=== PATIENT | male | born 1945 | race Caucasian/White ===

== ENCOUNTER → 2018-11-06 13:46 | Outpatient (BNVA) | payer MEDICARE, MEDICAID, SELFPAY | PROVIDERS: Visit Provider Nurse Practitioner Gerontology | DX: N40.1 Benign prostatic hyperplasia with lower urinary tract symptoms (principal); R33.9 Retention of urine, unspecified; G20 Parkinson's disease; I12.9 Hypertensive chronic kidney disease with stage 1 through stage 4 chronic kidney disease, or unspecified chronic kidney disease; N18.9 Chronic kidney disease, unspecified | CPT/HCPCS: 99204 ==

== ENCOUNTER 2022-11-24 02:59 | Inpatient (IN) | payer MEDICARE, MEDICAID, SELFPAY ==
[2022-11-24] VITALS (46 sets, daily range): BP systolic 77–108; BP diastolic 43–80; PULSE 55–122; RESP 14–27; TEMP 36.3–37.3; O2SAT 87–100
--- NOTE | 2022-11-24 | DI.US_ITS ---
Exam(s) US RENAL EXAM: US RENAL CLINICAL HISTORY: UTI in a male, [place] TECHNIQUE: Ultrasound of both kidneys performed using standard protocol. COMPARISON: CR,XR XR PORTABLE CHEST AP from 11/24/2022 FINDINGS: RIGHT KIDNEY: Measures 10.3 cm in length. No cysts evident. Normal cortical thickness and corticomedullary differen tiation .No solid masses No intrarenal calculi nor hydronephrosis. LEFT KIDNEY: Measures 10.2 cm in length. No cysts evident. Normal cortical thickness and corticomedullary differe ntiaion. No solids masses. No intrarenal calculi nor hydonephrosis. URINARY BLADDER: Prevoid volume is cc There is a catheter in the urinary bladder. The bladder is collapsed around this catheter. IMPRESSION: 1. No significant ultrasound findings in the kidneys. No hydronephrosis. 2. Wilkerson catheter in the urinary bladder. DATA REPOSITORY:
--- NOTE | 2022-11-24 03:00 | RT.EKG_ITS ---
APPROVED REPORT Exam: Resting ECG Reason for Exam: sob Patient Location: E HR:121 bpm ECG Measurements Heart Rate 121 AXIS AL 170 P 62 QRSd 93 QRS -24 QT 310 T 65 QTc 410 Conclusion Sinus tachycardia...rate> 99 Atrial premature complexes...SV complexes w/ short R-R intvls Anterior infarct, old...Q >40mS, abnormal ST-T, V2-V5. Sinus. Normal axis. PACs. No STEMI. I have reviewed and interpreted ECG and agree with software generated interpretation.
--- NOTE | 2022-11-24 03:15 | DI.RAD_ITS ---
Exam(s) XR PORTABLE CHEST AP EXAM: XR PORTABLE CHEST AP CLINICAL HISTORY: cough, fever, r/o acute disease. TECHNIQUE: 2D digital imaging was performed. COMPARISON: No exams were available for comparison FINDINGS: Single AP portable view. Heart size is upper normal. The mediastinum is not widened. Mild increased markings in the lung bases. No pleural effusions. No pulmonary edema. No pneumothor ax. IMPRESSION: Mild increased markings in lung bases. Recommend nonportable PA and lateral views when clinically pos sible and preferably with better inspiratory effort. DATA REPOSITORY: RADIATION DOSE DELIVERED:
--- NOTE | 2022-11-24 03:22 | ED.GENADUL_ITS ---
Discharge Plan Disposition Patient Disposition: Admit to [facility] Condition: Fair Discharge Details Clinical Impression: Sepsis, UTI (urinary tract infection), Pneumonia Admit Date/Time: 11/24/22 06:26 Admit Provider: Pasquale Gardner Attending Provider: Pasquale Gardner Primary Care Provider: Henrik Mukherjee ED Provider: Monica Cullen Discharge Data Discharge Date/Time-TO BE ENTERED AT DEPARTURE: 11/24/22 06:27 Medical Decision Making 0300 -- 77-year-old male presents from the health and rehab for report of fever, report of Wilkerson catheter not draining with report of purulent output after [place] change in addition to cough. Patient unable to provide history which is his baseline. Blood pressure hypotensive at 98/58. Heart rate tachycardic at 110. Rectal temp 101.4. Oxygen saturation mid 90s.Lung sounds are clear throughout. His abdomen is soft and there is no obvious tenderness. Concern for sepsis at this time. Will place an IV, bolus IV fluids, screening labs, urinalysis, lactate, blood cultures and give IV Tylenol reassess. 0410 -- Labs and imaging reviewed. White blood cell count 14.92. Lactate 1.7. Creatinine 2.5. He has a history of chronic kidney disease but unsure of his baseline. Troponin negative. Urinalysis notes greater than 50 WBCs, moderate leukocyte esterase, negative nitrite. Fluvid negative. Case discussed with hospitalist at [facility] and the [facility] downtime -- accepts pt for admission. Chest x-ray reviewed and notes what appears to be possible opacity or obscuring of right heart border. EMS and health and rehab reported a cough but patient has clear lung sounds throughout with normal oxygen saturation. Will cover likely UTI with Zosyn. This was discussed with Dr. Gardner who notes that Zosyn is fine at this time for coverage even if possible pneumonia. Patient's blood pressure has improved. His blood pressure was as low as 87 systolic. He now has a blood pressure of 101/57. 0600 -- Patient's BP now downtrending again, 80/58. Continue IV fluid hydration and continue to monitor. We will add vancomycin, pharmacy to dose Medical Records Medical records reviewed: Yes I reviewed the patient's medical records. Imaging Data Radiologic Study: Radiologist's impression: XR Chest Exam date and time: 11/24/2022 3:29 AM Age: 77 years old Clinical indication: Other: Cough, fever, R/O acute disease TECHNIQUE: Imaging protocol: Radiologic exam of the chest. Views: 1 view. COMPARISON: No relevant prior studies available. FINDINGS: Lungs: Low lung volumes. Faint patchy bibasilar opacities. Pleural spaces: No pneumothorax or sizable pleural effusion. Heart/Mediastinum: Borderline enlarged cardiac silhouette. Aortic atherosclerosis. Bones/joints: Degenerative changes in visualized spine. IMPRESSION: Faint patchy bibasilar opacities concerning for early/developing pneumonia. Lab Data Lab results reviewed: Yes I reviewed the patient's lab results. Labs: 11/24/22 03:38 Urine - Reflex from Ua Urine Culture - Pending 11/24/22 03:25 Blood Blood Culture - Pending 11/24/22 03:15 Blood Blood Culture - Pending Laboratory Tests Range/Units 11/24/22 11/24/22 11/24/22 03:15 03:15 03:15 WBC (4.4-10.8) 10^3/uL 14.92 H RBC (4.36-5.78) 10^6/uL 4.60 Hgb (13.5-17.5) g/dL 15.2 Hct (40.0-50.0) % 44.2 MCV (80-95) fL 96 H MCH (27.0-33.0) pg 33.0 MCHC (32.0-36.0) % 34.4 RDW (11.8-14.1) % 12.3 Plt Count (130-400) 10^3/uL 193 MPV (8.0-11.0) fL 10.1 Immature Gran % 0.4 Neutrophils % 91.0 Lymphocytes % 4.6 Monocytes % 3.6 Eosinophils % 0.1 Basophils % 0.3 Nucleated RBC % (0.0-0.3) % 0.0 Absolute Neutrophils (1.2-6.7) 10^3/uL 13.58 H Absolute Lymphocytes (1.2-3.4) 10^3/uL 0.69 L Absolute Monocytes (0.1-0.8) 10^3/uL 0.54 Absolute Eosinophils (0.0-0.7) 10^3/uL 0.01 Absolute Basophils (0.0-0.2) 10^3/uL 0.04 VBG Lactate (0.6-1.4) mmol/L 1.7 H Sodium (136-145) mmol/L 135 L Potassium (3.5-5.1) mmol/L 4.7 Chloride (98-107) mmol/L 102 Carbon Dioxide (21.0-32.0) mmol/L 23.0 Anion Gap (3-11) mmol/L 10.0 BUN (7-18) mg/dL 39 H Creatinine (0.70-1.30) mg/dL 2.5 H Est GFR (CKD-EPI 2020) (mL/min/1.73m2) 26.14 Glucose (74-106) mg/dL 139 H Calcium (8.5-10.1) mg/dL 9.1 Magnesium (1.8-2.4) mg/dL 2.1 Total Bilirubin (0.2-1.0) mg/dL 1.0 AST (15-37) U/L 20 ALT (16-63) U/L 12 L Alkaline Phosphatase (46-116) U/L 92 Troponin I (<or=60) ng/L < 50 Total Protein (6.4-8.2) g/dL 7.3 Albumin (3.4-5.0) g/dL 3.3 L Urine Color (Yellow) Urine Clarity (Clear) Urine pH (5-8) Ur Specific [place] (1.005-1.025) Urine Protein (Negative) mg/dL Urine Ketones (Negative) mg/dL Urine Blood (Negative) Urine Nitrite (Negative) Urine Bilirubin (Negative) Urine Urobilinogen (Up TO 0.2) EU/dL Ur Leukocyte Esterase (Negative) Urine RBC Urine WBC (0-5) HPF Ur Epithelial Cells Urine Crystals Urine Bacteria Urine Mucus Ur Culture Indicated? Urine Glucose (Negative) mg/dL COVID-19 Source SARS-CoV-2 (PCR) (Negative) Influenza Type A (PCR) (Negative) Influenza Type B (PCR) (Negative) RSV (PCR) (Negative) Range/Units 11/24/22 11/24/22 03:38 03:38 WBC (4.4-10.8) 10^3/uL RBC (4.36-5.78) 10^6/uL Hgb (13.5-17.5) g/dL Hct (40.0-50.0) % MCV (80-95) fL MCH (27.0-33.0) pg MCHC (32.0-36.0) % RDW (11.8-14.1) % Plt Count (130-400) 10^3/uL MPV (8.0-11.0) fL Immature Gran % Neutrophils % Lymphocytes % Monocytes % Eosinophils % Basophils % Nucleated RBC % (0.0-0.3) % Absolute Neutrophils (1.2-6.7) 10^3/uL Absolute Lymphocytes (1.2-3.4) 10^3/uL Absolute Monocytes (0.1-0.8) 10^3/uL Absolute Eosinophils (0.0-0.7) 10^3/uL Absolute Basophils (0.0-0.2) 10^3/uL VBG Lactate (0.6-1.4) mmol/L Sodium (136-145) mmol/L Potassium (3.5-5.1) mmol/L Chloride (98-107) mmol/L Carbon Dioxide (21.0-32.0) mmol/L Anion Gap (3-11) mmol/L BUN (7-18) mg/dL Creatinine (0.70-1.30) mg/dL Est GFR (CKD-EPI 2020) (mL/min/1.73m2) Glucose (74-106) mg/dL Calcium (8.5-10.1) mg/dL Magnesium (1.8-2.4) mg/dL Total Bilirubin (0.2-1.0) mg/dL AST (15-37) U/L ALT (16-63) U/L Alkaline Phosphatase (46-116) U/L Troponin I (<or=60) ng/L Total Protein (6.4-8.2) g/dL Albumin (3.4-5.0) g/dL Urine Color (Yellow) Yellow Urine Clarity (Clear) Cloudy Urine pH (5-8) 6.0 Ur Specific [place] (1.005-1.025) 1.020 Urine Protein (Negative) mg/dL >=300 H Urine Ketones (Negative) mg/dL Trace H Urine Blood (Negative) Large H Urine Nitrite (Negative) Negative Urine Bilirubin (Negative) Small H Urine Urobilinogen (Up TO 0.2) EU/dL 1.0 H Ur Leukocyte Esterase (Negative) Moderate H Urine RBC Not Applicable Urine WBC (0-5) HPF >50 H Ur Epithelial Cells Not Applicable Urine Crystals Not Applicable Urine Bacteria Not Applicable Urine Mucus Not Applicable Ur Culture Indicated? Yes Urine Glucose (Negative) mg/dL Negative COVID-19 Source Nasopharynx SARS-CoV-2 (PCR) (Negative) Negative Influenza Type A (PCR) (Negative) Negative Influenza Type B (PCR) (Negative) Negative RSV (PCR) (Negative) Negative ECG Data Attestation: I personally reviewed and interpreted this ECG (s) as follows: Interpretation: Rate of 121, sinus, PACs, no STEMI. HPI General Mode of arrival: EMS . Date/Time Provider Initiated Documentation: 11/24/22 03:16 . Limitations to Documentation: altered mental status and physical limitation . Information obtained by: patient . HPI Narrative: Patient is a 77-year-old male who presents from [facility] rehab for report of fever, Wilkerson not draining and cough. Reported to have a fever of 101. He was found to be COVID-negative. He was not given any Tylenol. Nursing staff changed his Wilkerson and noted 1450 cc output which was also purulent. Patient is nonverbal at baseline. Related Data Home Medications Medication Instructions Recorded Confirmed entacapone 200 mg tablet (Comtan) 200 mg PO TID 11/06/18 11/25/22 olanzapine 5 mg tablet 5 mg PO HS 11/06/18 11/28/22 polyethylene glycol 3350 17 17 gm PO DAILY 11/06/18 11/25/22 gram/dose oral powder (Miralax) simvastatin 20 mg tablet 20 mg PO QPM 11/06/18 11/25/22 acetaminophen 325 mg tablet 650 mg PO 6XD PRN Fever 11/25/22 11/25/22 amantadine HCl 100 mg tablet 100 mg PO TID 11/25/22 11/25/22 aspirin 81 mg chewable tablet 81 mg PO DAILY 11/25/22 11/25/22 benztropine 1 mg tablet 1 mg PO DAILY 11/25/22 11/25/22 bisacodyl 10 mg rectal suppository 10 mg TN DAILY PRN IF NO RESULT 11/25/22 11/25/22 (Dulcolax (bisacodyl)) FROM mom OR MIRALAX carbidopa 25 mg-levodopa 100 mg 2 tab PO 4XD 11/25/22 11/25/22 tablet diltiazem HCl 120 mg 120 mg PO DAILY 11/25/22 11/25/22 capsule,extended release 12 hr magnesium hydroxide 400 mg/5 mL 30 ml PO QHS PRN 11/25/22 11/25/22 oral suspension (Milk of Magnesia) miconazole nitrate 2 % topical 1 applic topical Q12H PRN 11/25/22 11/25/22 cream sodium phosphates 19 gram-7 118 ml TN ONCE 11/25/22 11/25/22 gram/118 mL enema (Fleet Enema) triamcinolone acetonide 0.1 % 1 applic topical BID 11/25/22 11/25/22 topical cream amoxicillin 875 mg-potassium 1 tab PO Q12H #10 tabs 11/28/22 clavulanate 125 mg tablet apixaban 5 mg tablet (Eliquis) 5 mg PO BID #0 tabs 11/28/22 ascorbic acid (vitamin C) 500 mg 500 mg PO BID #0 tabs 11/28/22 tablet (Vitamin C) cyanocobalamin (vitamin B-12) 500 1,000 mcg PO DAILY #0 tabs 11/28/22 mcg tablet (Vitamin B-12) folic acid 1 mg tablet 1 mg PO DAILY #0 tabs 11/28/22 magnesium chloride 64 mg 64 mg PO DAILY #0 tabs 11/28/22 (magnesium chloride) tablet,delayed release (Mag 64) multivit with mins-ferrous sulf 15 1 oz PO BID #0 ea 11/28/22 mg-folic 700 mcg oral powder packet (Phlexy-Vits) multivitamin with minerals-ferrous 1 tab PO DAILY@1000 #0 tabs 11/28/22 sulfate 4.5 mg iron tablet (One Daily Multivitamins with Minerals) zinc sulfate 50 mg zinc (220 mg) 220 mg PO DAILY #12 caps 11/28/22 capsule (Zinc-220) Previous Rx's Medication Instructions Recorded amoxicillin 875 mg-potassium 1 tab PO Q12H #10 tabs 11/28/22 clavulanate 125 mg tablet apixaban 5 mg tablet (Eliquis) 5 mg PO BID #0 tabs 11/28/22 ascorbic acid (vitamin C) 500 mg 500 mg PO BID #0 tabs 11/28/22 tablet (Vitamin C) cyanocobalamin (vitamin B-12) 500 1,000 mcg PO DAILY #0 tabs 11/28/22 mcg tablet (Vitamin B-12) folic acid 1 mg tablet 1 mg PO DAILY #0 tabs 11/28/22 magnesium chloride 64 mg 64 mg PO DAILY #0 tabs 11/28/22 (magnesium chloride) tablet,delayed release (Mag 64) multivit with mins-ferrous sulf 15 1 oz PO BID #0 ea 11/28/22 mg-folic 700 mcg oral powder packet (Phlexy-Vits) multivitamin with minerals-ferrous 1 tab PO DAILY@1000 #0 tabs 11/28/22 sulfate 4.5 mg iron tablet (One Daily Multivitamins with Minerals) zinc sulfate 50 mg zinc (220 mg) 220 mg PO DAILY #12 caps 11/28/22 capsule (Zinc-220) Allergies Allergy/AdvReac Type Severity Reaction Status Date / Time No Known Allergies Allergy Verified 11/06/18 16:28 General Stated Complaint: Fever JEANETTE: 3 Review of Systems Unobtainable due to mental status Constitutional Constitutional: Reports as per HPI, Denies chills and Reports fever(s) Eyes Eyes: Denies blurry vision ENT Ears, Nose, Mouth, and Throat: Denies dizziness, Denies sore throat and Denies throat swelling Cardiovascular Cardiovascular: Denies chest pain and Denies dyspnea Respiratory Respiratory: Reports cough and Denies dyspnea Gastrointestinal Gastrointestinal: Denies abdominal pain, Denies diarrhea and Denies vomiting Genitourinary Genitourinary: Denies hematuria and Denies dysuria Musculoskeletal Musculoskeletal: Denies back pain and Denies numbness Integumentary/Breasts Skin/Breast: Denies lesions and Denies rash Neurologic Neurologic: Denies dizziness, Denies localized weakness and Denies numbness Allergic/Immunologic Allergic/Immunologic: Denies throat swelling PFSH All Active Problems (Updated 11/28/22 @ 09:54 by Danita Marquez MD) Folate deficiency (Acute) B12 deficiency (Acute) Oropharyngeal dysphagia (Acute) [place] (acute kidney injury) (Acute) Sacral decubitus ulcer (Acute) Indwelling Wilkerson catheter present (Acute) Advanced care planning/counseling discussion (Acute) Communication deficit (Acute) Unable to walk (Acute) 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) Palliative care patient (Acute) DVT prophylaxis (Acute) Discharge planning issues (Acute) Schizoaffective disorder (Acute) Sepsis (Acute) UTI (urinary tract infection) (Acute) Pneumonia (Acute) Medical History Atrial fibrillation BPH (benign prostatic hyperplasia) Chronic kidney disease HTN (hypertension) Hx of hyperlipidemia Parkinsons disease Social History Smoking/Tobacco Use Status: Never Smoking risk assessment performed?: Yes Substance use type: does not use Exam Const General: ill appearing acutely Orientation: alert, awake and oriented x3 HENMT Head: normal to inspection Face and sinus: normal facial exam Mouth: mucous membranes dry Eyes General: appearance normal, both eyes and all related structures Pupils: PERRL EOM: EOM intact bilaterally Neck Neck: normal visual inspection and No submandibular swelling Lymphatic: no lymphadenopathy noted Chest Chest: normal inspection of the chest and no tenderness Resp Effort & Inspection: normal respiratory effort and able to speak in complete sentences Auscultation: clear to auscultation bilaterally Cardio Rate: bradycardic Rhythm: regular rhythm GI Inspection: normal to inspection Palpation: soft, not firm, not rigid and nontender Auscultation: hypoactive bowel sounds General: other (Wilkerson Catheter present) Back/Spine/Pelvis Back/spine/pelvis image: 1. Stage II ulcer. Ointment and powder overlying wound. No significant cellulitis. Skin General skin exam: no rashes or lesions noted Neuro General: patient alert, patient awake and patient oriented x3 Cognition: normal cognition Speech: speech normal Motor: muscle tone normal throughout Sensory Exam: no sensory deficits noted Extrem General: normal to inspection, full ROM, capillary refill normal, no calf tenderness bilaterally and no edema Psych Appearance: grossly normal Mental Status: mental status grossly normal Speech and Movement: speech and movement normal Affect: normal affect Course Vital Signs Vital signs: Vital Signs Temperature 98.6 F 11/24/22 03:01 Pulse 113 H 11/24/22 03:01 Respiratory Rate 20 11/24/22 03:01 Blood Pressure 98/58 L 11/24/22 03:01 Pulse Oximetry 96 11/24/22 03:01 Temperature 98.6 F 11/24/22 03:01 Temperature Source Temporal Artery Scan 11/24/22 03:01 Pulse 113 H 11/24/22 03:01 Respiratory Rate 20 11/24/22 03:01 Respiratory Effort 11/24/22 03:10 Blood Pressure 98/58 L 11/24/22 03:01 Pulse Oximetry 96 11/24/22 03:01 Oxygen Delivery Method Room Air 11/24/22 03:01 Oxygen Flow Rate 0 11/24/22 03:01 Lab/Test Results Lab/Test Results: 11/24/22 03:19 Blood Blood Culture - Pending 11/24/22 03:19 Blood Blood Culture - Pending
[2022-11-24 03:34] LABS: Abs Immature Grans 0.06 10^3/uL (0.0-0.06); Absolute Basophil Count 0.04 10^3/uL (0.0-0.2); Absolute Monocyte Count 0.54 10^3/uL (0.1-0.8); Absolute Neutrophil Count 13.58 10^3/uL (1.2-6.7); Basophils % 0.3; Eosinophils % 0.1; HCT 44.2 % (40.0-50.0); HGB 15.2 g/dL (13.5-17.5); Immature Grans % 0.4; Lymphocytes % 4.6; MCHC 34.4 % (32.0-36.0); MCV 96 fL (80-95); MPV 10.1 fL (8.0-11.0); Monocytes % 3.6; Platelet Count 193 10^3/uL (130-400); RDW 12.3 % (11.8-14.1); RDW-SD 44.1 fL; WBC 14.92 10^3/uL (4.4-10.8)
[2022-11-24 03:35] LABS: Absolute Eosinophil Count 0.01 10^3/uL (0.0-0.7); Absolute Lymphocyte Count 0.69 10^3/uL (1.2-3.4); Lactate 1.7 mmol/L (0.6-1.4)
[2022-11-24 03:48] LABS: Bilirubin Small (Negative); Blood Large (Negative); Clarity Cloudy (Clear); Glucose Negative (Negative); Ketones Trace mg/dL (Negative); Leukocyte Esterase Moderate (Negative); Nitrite Negative (Negative)
[2022-11-24] MEDS: Normal Saline 1,000 ML 1000 ML IV (03:48)
[2022-11-24] MEDS: ACETAMINOPHEN 1,000 MG/100 ML BTL 400 MG IVPB (03:49)
[2022-11-24 03:53] LABS: C & S Indicated? Yes
[2022-11-24 03:54] LABS: WBC >50 HPF (0-5)
[2022-11-24 03:56] LABS: ALT 12 U/L (16-63); AST 20 U/L (15-37); Albumin 3.3 g/dL (3.4-5.0); Alkaline Phosphatase 92 U/L (46-116); BUN 39 mg/dL (7-18); CREATININE 2.5 mg/dL (0.70-1.30); Calcium 9.1 mg/dL (8.5-10.1); Chloride 102 mmol/L (98-107); Estimated GFR 26.14 (mL/min/1.73m2); Glucose 139 mg/dL (74-106); Magnesium 2.1 mg/dL (1.8-2.4); Potassium 4.7 mmol/L (3.5-5.1); Sodium 135 mmol/L (136-145); Total Protein 7.3 g/dL (6.4-8.2); Troponin I < 50 ng/L (<or=60)
[2022-11-24] MEDS: Piperacillin/Tazobactam 3.375 GM VIAL (05:15)
[2022-11-24] MEDS: Normal Saline 100 ML 200 ML (05:15)
--- NOTE | 2022-11-24 05:40 | DI.VRAD_ITS ---
PROCEDURE INFORMATION: Exam: XR Chest Exam date and time: 11/24/2022 3:29 AM Age: 77 years old Clinical indication: Other: Cough, fever, R/O acute disease TECHNIQUE: Imaging protocol: Radiologic exam of the chest. Views: 1 view. COMPARISON: No relevant prior studies available. FINDINGS: Lungs: Low lung volumes. Faint patchy bibasilar opacities. Pleural spaces: No pneumothorax or sizable pleural effusion. Heart/Mediastinum: Borderline enlarged cardiac silhouette. Aortic atherosclerosis. Bones/joints: Degenerative changes in visualized spine. IMPRESSION: Faint patchy bibasilar opacities concerning for early/developing pneumonia. Dictated and Authenticated by: Ilsa James MD. Ordering:LAYNE Anderson MD
[2022-11-24 05:57] LABS: COVID-19 PCR Negative (Negative); Influenza A PCR Negative (Negative); Influenza B PCR Negative (Negative); RSV PCR Negative (Negative)
[2022-11-24 06:00] LABS: Source Nasopharynx
--- NOTE | 2022-11-24 06:42 | W.PM.HP.N ---
Date of service: 11/24/22 Time of Service: 06:43 Assessment and Plan Assessment and plan (1) Sepsis: Status: Acute Assessment and plan: Hypotension, Fever, elevated WBC count and mildly elevated lactate. Possible infiltrates and UTI. Has chronic indwelling ribeiro catheter and patient is not able to communicate whether he has had urinary symptoms. Zosyn and vancomycin initiated in the ED. IV fluid resuscitation. MRSA screen pending. Urine and blood cultures obtained. (2) UTI (urinary tract infection): Status: Acute Assessment and plan: Colonization vs acute infection. Culture pending. Zosyn. (3) Atrial fibrillation: Assessment and plan: Paroxysmal afib. Now in sinus rhythm. Cont diltiazem. Not on anticoagulation. (4) BPH (benign prostatic hyperplasia): Assessment and plan: Chronic indwelling ribeiro Determine when this was last exchanged. (5) Chronic kidney disease: Assessment and plan: Unclear of baseline. Monitor. (6) HTN (hypertension): Assessment and plan: Currently hypotensive. Continuing diltiazem but may (7) Parkinsons disease: Assessment and plan: Cont current Parkinsons medications. Will have to see what his baseline level of activity is as per facility staff. (8) Schizoaffective disorder: Status: Acute Assessment and plan: Cont olanzapine. (9) Discharge planning issues: Status: Acute Assessment and plan: Pt is a full code. Palliative consulted. History of Present Illness History of Present Illness Chief Complaint: Fever Narrative: This is a 77 yo male [facility] He has a PMH of Parkinson's disease, schizoaffectie d.o. , paroxysmal afib, HLD, HTN, CKD, anemia of chronic disease, BPH with urinary obstruction, chronic indwelling ribeiro catheter, atopic dermatitis. He presented to the ED secondary to a temperative of 101F. It was also reported that his ribeiro catheter was not draining well and had purulent drainage. + mild cough. At baseline patient has diminished cognitive capacity; cannot provide information. In the ED he was tachycardic with an initial BP of 98/58. Rectal temperature was 101.4. WBC count 14.92. Lactate 1.7. Creatinine 2.5 (no previous creatinine values in [facility] chart). Fluvid neg. UA + for leuk est, 50 WBC's, neg nitrite. CXR showed mild increased markins in lung bases. Zosyn and Vancomycin IV initiated in the ED. Admitted to the ICU Review of Systems Unobtainable due to mental condition and Unobtainable due to (History provided by nursing facility staff) [facility] All Active Problems (Updated 11/24/22 @ 09:05 by Pasquale Gardner MD) Discharge planning issues (Acute) Schizoaffective disorder (Acute) Sepsis (Acute) UTI (urinary tract infection) (Acute) Pneumonia (Acute) Medical History Atrial fibrillation BPH (benign prostatic hyperplasia) Chronic kidney disease HTN (hypertension) Hx of hyperlipidemia Parkinsons disease Social History Smoking/Tobacco Use Status: Never Smoking risk assessment performed?: Yes Substance use type: does not use Meds Allergies and Home Medications Allergies Allergy/AdvReac Type Severity Reaction Status Date / Time No Known Allergies Allergy Verified 11/06/18 16:28 Home Medications Medication Instructions Recorded Confirmed Type amantadine HCl 100 mg capsule 100 mg PO BID 11/06/18 11/07/18 History aspirin 325 mg tablet 325 mg PO DAILY 11/06/18 11/07/18 History benztropine 0.5 mg tablet 0.5 mg PO BID 11/06/18 11/07/18 History benztropine 1 mg tablet 1 mg PO DAILY 11/06/18 11/07/18 History carbidopa ER 50 mg-levodopa 200 mg 1 tab PO QID 11/06/18 11/07/18 History tablet,extended release (Sinemet CR) diltiazem HCl 120 mg 120 mg PO DAILY 11/06/18 11/07/18 History capsule,extended release 24 hr entacapone 200 mg tablet (Comtan) 200 mg PO TID 11/06/18 11/07/18 History finasteride 5 mg tablet 5 mg PO DAILY 11/06/18 11/07/18 History gemfibrozil 600 mg tablet (Lopid) 600 mg PO BID 11/06/18 11/07/18 History lisinopril 10 mg tablet 10 mg PO DAILY 11/06/18 11/07/18 History multivitamin 1 tab PO DAILY 11/06/18 11/07/18 History olanzapine 5 mg tablet 5 mg PO DAILY 11/06/18 11/07/18 History polyethylene glycol 3350 17 17 gm PO DAILY 11/06/18 11/07/18 History gram/dose oral powder (Miralax) simvastatin 20 mg tablet 20 mg PO QPM 11/06/18 11/07/18 History tamsulosin 0.4 mg capsule 0.8 mg PO DAILY 11/06/18 11/07/18 History Exam Narrative Exam Narrative: Lying supine with eyes closed. Const General: no acute distress Nutritional Appearance: obese Limitations: other limitations (lethargic. Baseline minimally interactive. ) Eyes Sclera: sclerae normal Pupils: other (Pupils equal in size) Other: small amount of clear, thick drainage in both eyes and on eyelid margins. Resp Effort & Inspection: not labored Auscultation: clear to auscultation bilaterally (anterior. Pt doesn't follow command to take deep breath.) Cardio Rate: tachycardic Rhythm: regular rhythm Heart Sounds: S1 normal and S2 normal GI Inspection: non-distended Palpation: soft Auscultation: normal bowel sounds Skin Lesions: no lesions Rashes: rashes noted (bilateral shins) Neuro General: not awake, tone abnormal and unable to assess gait Speech: other (doesn't verbalize) Motor: other (rigid joints.) Extrem General: no pedal edema Results Labs 11/24/22 03:15 11/24/22 03:15 Labs: Laboratory Results - last 24 hr 11/24/22 11/24/22 11/24/22 03:15 03:15 03:15 WBC 14.92 H RBC 4.60 Hgb 15.2 Hct 44.2 MCV 96 H MCH 33.0 MCHC 34.4 RDW 12.3 Plt Count 193 MPV 10.1 Immature Gran % 0.4 Neutrophils % 91.0 Lymphocytes % 4.6 Monocytes % 3.6 Eosinophils % 0.1 Basophils % 0.3 Nucleated RBC % 0.0 Absolute Neutrophils 13.58 H Absolute Lymphocytes 0.69 L Absolute Monocytes 0.54 Absolute Eosinophils 0.01 Absolute Basophils 0.04 VBG Lactate 1.7 H Sodium 135 L Potassium 4.7 Chloride 102 Carbon Dioxide 23.0 Anion Gap 10.0 BUN 39 H Creatinine 2.5 H Est GFR (CKD-EPI 2020) 26.14 Glucose 139 H Calcium 9.1 Magnesium 2.1 Total Bilirubin 1.0 AST 20 ALT 12 L Alkaline Phosphatase 92 Troponin I < 50 Total Protein 7.3 Albumin 3.3 L Urine Color Urine Clarity Urine pH Ur Specific [place] Urine Protein Urine Ketones Urine Blood Urine Nitrite Urine Bilirubin Urine Urobilinogen Ur Leukocyte Esterase Urine RBC Urine WBC Ur Epithelial Cells Urine Crystals Urine Bacteria Urine Mucus Ur Culture Indicated? Urine Glucose COVID-19 Source SARS-CoV-2 (PCR) Influenza Type A (PCR) Influenza Type B (PCR) RSV (PCR) 11/24/22 11/24/22 03:38 03:38 WBC RBC Hgb Hct MCV MCH MCHC RDW Plt Count MPV Immature Gran % Neutrophils % Lymphocytes % Monocytes % Eosinophils % Basophils % Nucleated RBC % Absolute Neutrophils Absolute Lymphocytes Absolute Monocytes Absolute Eosinophils Absolute Basophils VBG Lactate Sodium Potassium Chloride Carbon Dioxide Anion Gap BUN Creatinine Est GFR (CKD-EPI 2020) Glucose Calcium Magnesium Total Bilirubin AST ALT Alkaline Phosphatase Troponin I Total Protein Albumin Urine Color Yellow Urine Clarity Cloudy Urine pH 6.0 Ur Specific [place] 1.020 Urine Protein >=300 H Urine Ketones Trace H Urine Blood Large H Urine Nitrite Negative Urine Bilirubin Small H Urine Urobilinogen 1.0 H Ur Leukocyte Esterase Moderate H Urine RBC Not Applicable Urine WBC >50 H Ur Epithelial Cells Not Applicable Urine Crystals Not Applicable Urine Bacteria Not Applicable Urine Mucus Not Applicable Ur Culture Indicated? Yes Urine Glucose Negative COVID-19 Source Nasopharynx SARS-CoV-2 (PCR) Negative Influenza Type A (PCR) Negative Influenza Type B (PCR) Negative RSV (PCR) Negative Last Vital Signs Temp 37.0 C 11/24/22 03:01 Pulse 83 11/24/22 06:01 Resp 15 11/24/22 06:10 BP 87/51 L 11/24/22 06:01 Pulse Ox 98 11/24/22 06:10 Time Spent Time spent with Patient: 40-54 minutes Time was spent: preparing to see the patient(eg.review tests), obtaining and/or reviewing separately otained hiistory, ordering medications,tests, procedures and indepentently interpreting results
[2022-11-24 08:05] LABS: C-Reactive Protein 21.65 mg/dL (0.0-0.3)
[2022-11-24 08:23] LABS: Lab Add On Test DONE
[2022-11-24 08:36] LABS: Procalcitonin 0.4 ng/mL
--- NOTE | 2022-11-24 09:02 | W.PM.PROGNOT ---
Date of Service Date of service: 11/24/22 Time of Service: 09:03 Assessment and Plan Assessment and plan (1) Sepsis: Status: Acute Assessment and plan: Due to a UTI associated with an indwelling ribeiro catheter. ?[place] new or if there is a baseline kidney impairment - will try to find out from SNF. Obtain US renal. Continue empiric vancomcyin/zosyn, IVF x 1 more L. MOnitor UOP. Await MRSA smear. Ribeiro changed this am at the SNF, right prior to coming to the hospital. Palliative care c/s to clarify goals of care. (2) UTI (urinary tract infection): Status: Acute Assessment and plan: As above (3) Atrial fibrillation: Assessment and plan: Paroxysmal afib. Currently rate controlled in Afib. Hold outpatient diltiazem 120 mg PO daily. Trial short acting diltiazem 30 mg PO q6hrs with holding parameters. Not on anticoagulation as outpatient. Will clarify why. (4) BPH (benign prostatic hyperplasia): Assessment and plan: H/o chronic indwelling ribeiro. Will need urology f/u for consideration of a suprapubic catheter. Last changed this morning, 11/24/22. (5) Chronic kidney disease: Assessment and plan: Clarify baseline Cr with SNF. On IVF. Obtain US renal to ensure no obstructive uropathy. (6) HTN (hypertension): Assessment and plan: [place] holding parameters on diltiazem, as above (7) Parkinsons disease: Assessment and plan: Continue current Parkinsons meds. C/s PT, OT, speech for a swallow eval. (8) Schizoaffective disorder: Status: Acute Assessment and plan: Continue olanzapine. (9) Discharge planning issues: Status: Acute Assessment and plan: Full code Palliative code consulted. C/s PT, OT, speech. (10) DVT prophylaxis: Status: Acute Assessment and plan: [place] heparin given [place] vs CKD. Total Critical Care Time 40 minutes. Subjective Subjective Interval history since last seen: Somnolent this am. Not waking up enough to answer questions when I am in the room, but does wake up to my voice and his name. Exam Narrative Exam Narrative: General: male who is snoring sonorously, arousable to voice HEENT: EOMI, dry MM Heart: irregularly irregular rhythm, no m/r/g Lungs: CTAB/diminished anteriorly Abdomen: soft, nontender, nondistended : has a ribeiro: yellow urine draining Extremities: no edema BLEs, wearing tall white socks Objective Last Vital Signs Temp 37.3 C 11/24/22 07:23 Pulse 92 H 11/24/22 07:41 Resp 14 11/24/22 07:41 BP 98/49 L 11/24/22 07:41 Pulse Ox 96 11/24/22 07:41 Laboratory Results - last 24 hr 11/24/22 11/24/22 11/24/22 03:15 03:15 03:15 WBC 14.92 H RBC 4.60 Hgb 15.2 Hct 44.2 MCV 96 H MCH 33.0 MCHC 34.4 RDW 12.3 Plt Count 193 MPV 10.1 Immature Gran % 0.4 Neutrophils % 91.0 Lymphocytes % 4.6 Monocytes % 3.6 Eosinophils % 0.1 Basophils % 0.3 Nucleated RBC % 0.0 Absolute Neutrophils 13.58 H Absolute Lymphocytes 0.69 L Absolute Monocytes 0.54 Absolute Eosinophils 0.01 Absolute Basophils 0.04 VBG Lactate 1.7 H Sodium 135 L Potassium 4.7 Chloride 102 Carbon Dioxide 23.0 Anion Gap 10.0 BUN 39 H Creatinine 2.5 H Est GFR (CKD-EPI 2020) 26.14 Glucose 139 H Calcium 9.1 Magnesium 2.1 Total Bilirubin 1.0 AST 20 ALT 12 L Alkaline Phosphatase 92 Troponin I < 50 C-Reactive Protein Total Protein 7.3 Albumin 3.3 L Procalcitonin Urine Color Urine Clarity Urine pH Ur Specific [place] Urine Protein Urine Ketones Urine Blood Urine Nitrite Urine Bilirubin Urine Urobilinogen Ur Leukocyte Esterase Urine RBC Urine WBC Ur Epithelial Cells Urine Crystals Urine Bacteria Urine Mucus Ur Culture Indicated? Urine Glucose COVID-19 Source SARS-CoV-2 (PCR) Influenza Type A (PCR) Influenza Type B (PCR) RSV (PCR) Add-On Test Request 11/24/22 11/24/22 11/24/22 03:15 03:15 03:15 WBC RBC Hgb Hct MCV MCH MCHC RDW Plt Count MPV Immature Gran % Neutrophils % Lymphocytes % Monocytes % Eosinophils % Basophils % Nucleated RBC % Absolute Neutrophils Absolute Lymphocytes Absolute Monocytes Absolute Eosinophils Absolute Basophils VBG Lactate Sodium Potassium Chloride Carbon Dioxide Anion Gap BUN Creatinine Est GFR (CKD-EPI 2020) Glucose Calcium Magnesium Total Bilirubin AST ALT Alkaline Phosphatase Troponin I C-Reactive Protein 21.65 H Total Protein Albumin Procalcitonin 0.4 Urine Color Urine Clarity Urine pH Ur Specific [place] Urine Protein Urine Ketones Urine Blood Urine Nitrite Urine Bilirubin Urine Urobilinogen Ur Leukocyte Esterase Urine RBC Urine WBC Ur Epithelial Cells Urine Crystals Urine Bacteria Urine Mucus Ur Culture Indicated? Urine Glucose COVID-19 Source SARS-CoV-2 (PCR) Influenza Type A (PCR) Influenza Type B (PCR) RSV (PCR) Add-On Test Request DONE 11/24/22 11/24/22 03:38 03:38 WBC RBC Hgb Hct MCV MCH MCHC RDW Plt Count MPV Immature Gran % Neutrophils % Lymphocytes % Monocytes % Eosinophils % Basophils % Nucleated RBC % Absolute Neutrophils Absolute Lymphocytes Absolute Monocytes Absolute Eosinophils Absolute Basophils VBG Lactate Sodium Potassium Chloride Carbon Dioxide Anion Gap BUN Creatinine Est GFR (CKD-EPI 2020) Glucose Calcium Magnesium Total Bilirubin AST ALT Alkaline Phosphatase Troponin I C-Reactive Protein Total Protein Albumin Procalcitonin Urine Color Yellow Urine Clarity Cloudy Urine pH 6.0 Ur Specific [place] 1.020 Urine Protein >=300 H Urine Ketones Trace H Urine Blood Large H Urine Nitrite Negative Urine Bilirubin Small H Urine Urobilinogen 1.0 H Ur Leukocyte Esterase Moderate H Urine RBC Not Applicable Urine WBC >50 H Ur Epithelial Cells Not Applicable Urine Crystals Not Applicable Urine Bacteria Not Applicable Urine Mucus Not Applicable Ur Culture Indicated? Yes Urine Glucose Negative COVID-19 Source Nasopharynx SARS-CoV-2 (PCR) Negative Influenza Type A (PCR) Negative Influenza Type B (PCR) Negative RSV (PCR) Negative Add-On Test Request Objective Narrative Objective Narrative: US renal pending Multi-Disciplinary Checklist Lines/Tubes CENTRAL LINE: no RIBEIRO: yes, Ribeiro Day#: 0 Note: chronic indwelling ribeiro, replaced on 11/24/22. ENDOTRACHEAL TUBE: no ICU Maintenance GLUCOSE 140-180mg/dL: yes NUTRITION AT GOAL: yes PRESSURE ULCER: no RESTRAINTS: no ANTIBIOTICS(if yes, consider Stewardship): Yes Social Issues FAMILY UPDATED: no, Reason/Intervention: will be updated today PT/OT: yes GOALS/DISPOSITION/MANAGER ENVIRONMENTAL SERVICES: yes CODE STATUS: Full (Palliative care consulted) Prophylaxis DVT PROPHYLAXIS: yes GI PROPHYLAXIS: no Time Spent with Patient Time Spent with Patient: 35-49 minutes Time was spent: preparing to see the patient(eg.review tests), obtaining and/or reviewing separately otained hiistory, ordering medications,tests, procedures, referring, communicating with other health early breastfeeding care specialist, indepentently interpreting results, counseling the patient and care coordination
--- NOTE | 2022-11-24 09:05 | PDOC.CMIN ---
- If Service Date Differs Date of service: 11/24/22 Time of Service: 09:05 Care Management Initial Assess REASON FOR HOSPITALIZATION:: sepsis PAST MEDICAL HISTORY/PAST SURGICAL HISTORY:: Medical History . Atrial fibrillation. BPH (benign prostatic hyperplasia). Chronic kidney disease. HTN (hypertension). Hx of hyperlipidemia. Parkinsons disease PREVIOUS FUNCTIONAL STATUS/SOCIAL/FAMILY SUPPORTS:: Cesario resides at [facility]. He has schizoaffective disorder and Parkinsons's disease and is unable to communicate his needs verbally. Cesario does use a pad and pen to communicate in writing however his writing is often difficult to decipher. He requires assistance with ADLs and all care. CURRENT FUNCTIONAL STATUS:: Cesario was sitting up in bed when CM met with him. He was alert and seemed to understand what was being said but was only able to utter one word responses. Cesario had a Palliative Consult with Dr. Smith this morning and his brother Dougie participated by phone. It is hoped that a family meeting can be scheduled tomorrow with Dougie in attendance to further discuss goals of care and also the poissibility of transitioning from a ribeiro catheeter to a suprapubic tube. ADVANCE DIRECTIVES:: on file. Dougie Naomy [facility] Has patient been provided with info about the portal/API?: Yes Did the patient sign up for the portal?: No CODE STATUS:: Full Code INSURANCE COVERAGE / FINANCIAL ISSUES:: Medicare. Medicaid CURRENT HOME/COMMUNITY SERVICES/EQUIPMENT:: resides at [facility]. Recently transferred from [facility] which closed. PRIMARY CARE PHYSICIAN:: Henrik Mukherjee POTENTIAL DISCHARGE NEEDS:: return to [facility] PATIENT/FAMILY EDUCATION NEEDS:: Review discharge instructions, limitations, medications, Ask Me Three TRANSPORTATION:: via facility W/C van PLAN:: Cesario will return to [facility] when medically stable. He will follow up with the facility provider and plan of care and transport via facility wheelchair van. CM will support Cesario and assess for dischareg needs.
[2022-11-24 09:27] LABS: Lab Add On Test DONE
[2022-11-24 09:39] LABS: Creatine Kinase 391 U/L (39-308)
[2022-11-24] MEDS: Heparin 5,000 UNITS/ML VIAL 5000 UNITS SC ×2 (09:41→17:58)
[2022-11-24] MEDS: VANCOMYCIN/WATER (PEG) 1.5 GM/300 ML BAG IVPB (09:41)
[2022-11-24] MEDS: Benztropine 1 MG TAB PO (09:42)
[2022-11-24] MEDS: dilTIAZem 30 MG TAB PO (09:42)
[2022-11-24] MEDS: Carbidopa 25/Levodopa 100 TAB PO ×4 (09:42→21:03)
[2022-11-24] MEDS: Aspirin 81 MG CHEW PO (09:42)
[2022-11-24] MEDS: Polyethylene Glycol 3350 17 GM PACKET PO (09:42)
[2022-11-24] MEDS: Lactated Ringers 1,000 ML 100 ML IV (09:47)
[2022-11-24 10:16] LABS: Lactate 1.9 mmol/L (0.6-1.4)
[2022-11-24] MEDS: Lactated Ringers 500 ML IV ×2 (12:37→15:45)
[2022-11-24] MEDS: PIPERACILLIN/TAZO 3.375 GM in Normal Saline 50 ML IVPB ×3 (12:50→23:39)
--- NOTE | 2022-11-24 13:03 | PCNE_ITS ---
Date of service: 11/24/22 Time of Service: 11:05 History of Present Illness History of Present Illness Chief Complaint: Urosepsis Narrative: Mr. Moralez is a 77-year-old gentleman with severe parkinsonism, schizoaffective disorder, history of atrial fibrillation, hyperlipidemia, hypertension, CKD, anemia of chronic disease, chronic indwelling Wilkerson catheter due to bladder outlet obstruction who was admitted early this morning to [facility] with urosepsis causing hypotension and fever. History was obtained from his brother and guardian Sesar Moralez, notes in the chart and information from hospitalist, case management, ICU nurse. I had no access to PCP notes or SNF notes. As per brother, patient has resided in care home facility for over 5 years. Unfortunately his SNF in [facility] had to close and about 2 weeks ago he was transferred to [facility] and rehabilitation. Brother reports he had visited last week and he was doing well, playing bingo (and winning), seems happy and was participating in all activities. Then became acutely ill and was transferred to ED for further evaluation Brother describes that in his 50s he became disabled from his schizoaffective disorder. He was no longer able to work. He was fine when he took his medications but had trouble remembering to take medication. Eventually he was able to continue living in his house but attending adult daycare, who administ ered his medications. He then began to develop parkinsonism. Unable to live in his own approximately 5 to 7 years ago. Has had gradual but steady decline in ambulation, communication, swallowing. He reportedly is pleasant with no behavioral difficulties. I did not specifically query most recent episode of psychosis. Ambulation: Brother recalls that he was still walking with a walker when they went out for ice cream in summer 2021. Sometime after that he stopped receiving physical therapy due to staffing issues and since then has only been able to ambulate in a wheelchair. He thinks he can push himself in the wheelchair. He may be able to stand and pivot on his own. Communication: Patient has had more more difficulty speaking. He has been able to communicate via writing and hand signals. Swallowing: Increasing problems with swallowing. Over the last year has been transitioned to pur?ed diet. Care Team: Primary Care physician: [facility]. Previously Dr. Shanks in [facility] Psychiatrist: None in many years as per brother Urologist: Brother is not aware of any urologist involved in his brother's care Social HX: Single, never . Worked in farming, and factory, [employer]. Disabled since his mid 50s because of his mental health issues. Recent activities that his brother knows he enjoys include bingo and number games Impression of currents health status: N/A What bothers you the most: Patient denies any discomfort What worries you the most: Unable to ask Current information preferences: N/A Function: Ambulation: Reportedly wheelchair only ADLs: Unknown iADLs: Dependent for all of these Spiritual history: Quaker, attended advent when still ambulatory. Prior and advent important to him. Palliative review of systems: Pain: Patient repeatedly denies pain. Dyspnea: Denies having trouble breathing. Observed to cough during interview. GI symptoms: Denies nausea. Appetite: Brother reports he has an excellent appetite before he became ill. Says he is not hungry at this time. Depression: Not queried Anxiety: Does not exhibit any anxiety Emotional Distress: None exhibited Spiritual/Existential Distress: Advanced Care Planning: Advanced Directive: Advanced directive on file from 2013. See HPI Health Care Agent: Brothlenny Moralez is healthcare agent and legal guardian COLST: None on file, brother has never heard of this Limitations: Assessment and Plan Assessment and plan (1) Palliative care patient: Status: Acute Assessment and plan: Patient severely disabled with progressive parkinsonism. Admitted with urosep sis. Patient appropriate for involvement of palliative care team. We will continue to follow him when he returns to [facility] and rehab. Case reviewed with DANA, hospitalist. Palliative care steamboat inspector Tiffany Agudelo APRN will meet with brother Sesar and patient for family meeting tomorrow. (2) Parkinsonism due to drugs: Status: Acute Assessment and plan: #Parkinsonism: PD vs, Drug induced. Brother Sesar describes that patient has had 10+ years of progressive symptoms. [place] to be secondary to psychiatric medications. He has had great difficulty talking for at least 7 years, this progression has been gradual over time. Patient has very limited speech, worsening over time as part of his parkinsonism. patient communicates via writing and answers yes and no, sometimes thumbs up and thumbs down. ICU nurse and I started a conversation with whiteboard and magic marker and patient was able to write. Also answered appropriately yes or no to close ended questions. Looking forward to seeing CRM MARKETING EXECUTIVE recommendations. Patient also reportedly walked with a walker until about 8 months ago and has been wheelchair-bound since then. Unknown if he has had any falls. No recent care from psychiatry or neurology to help with parkinsonism or suggestions with adjusting medications in hopes of decreasing symptoms. - Plan: -Consider neurology consultation. Brother cannot recall him ever seeing neurologist. -I will attempt to contact previous PCP in [facility] to get additional information on any recent psychiatric consultations, especially around possible tweaking of medications to decrease Parkinson's symptoms. (3) Schizoaffective disorder: Status: Acute Assessment and plan: m (4) Sepsis: Status: Acute Assessment and plan: As per hospitalist. (5) Unable to walk: Status: Acute Assessment and plan: Physical therapy consult pending (6) Communication deficit: Status: Acute Assessment and plan: CRM MARKETING EXECUTIVE consult pending (7) Advanced care planning/counseling discussion: Status: Acute Assessment and plan: #Advance care planning/goals of care: Patient has 2013 advance directive. Brothlenny Kaba says that patient was actively involved in drawing up at this document. Sesar is sure that there has been a more recent discussion and possibly even a COLST form. Sesar says that patient still does not want a feeding tube, would want a trial of intubation, but at that time (unclear how long ago this was) patient definitely wanted CPR just for short while . Plan: -Family meeting tomorrow with brother and patient to review CODE STATUS and goals of care. -Visit by Quaker clergy requested. (8) Indwelling Wilkerson catheter present: Status: Acute Assessment and plan: #Chronic urinary retention: As per brother Sesar, permanent Wilkerson for at least 4 years. He cannot recall patient seeing urologist or a suprapubic catheter being proposed. Sesar reports patient has had several admissions for urosepsis almost several times , however most recent infection was about a year ago. Plan: -Family meeting tomorrow will include recommendation that he see Dr. Geiger to discuss option of having suprapubic catheter placed in hopes of decreasing incidence of UTIs. PFSH All Active Problems Indwelling Wilkerson catheter present (Acute) Advanced care planning/counseling discussion (Acute) Communication deficit (Acute) Unable to walk (Acute) 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) Palliative care patient (Acute) DVT prophylaxis (Acute) Discharge planning issues (Acute) Schizoaffective disorder (Acute) Sepsis (Acute) UTI (urinary tract infection) (Acute) Pneumonia (Acute) Medical History Atrial fibrillation BPH (benign prostatic hyperplasia) Chronic kidney disease HTN (hypertension) Hx of hyperlipidemia Parkinsons disease Social History Smoking/Tobacco Use Status: Never Smoking risk assessment performed?: Yes Substance use type: does not use Exam Narrative Exam Narrative: Pleasant elderly gentleman sitting up in ICU bed. Alert follows. Answers yes and no. Not observed to move his left arm at all during my visit. Able to write and somewhat tremulous cursive with his right arm. Occasional cough. Some purulent discharge from his left eye. Appears comfortable, no pain and no dyspnea. Pleasant in no obvious anxiety. Results Last Vital Signs Temp 37.3 C 11/24/22 07:23 Pulse 92 H 11/24/22 07:41 Resp 14 11/24/22 07:41 BP 98/49 L 11/24/22 07:41 Pulse Ox 96 11/24/22 07:41 Labs 11/24/22 03:15 11/24/22 03:15 Labs: Laboratory Results - last 24 hr 11/24/22 11/24/22 11/24/22 03:15 03:15 03:15 WBC 14.92 H RBC 4.60 Hgb 15.2 Hct 44.2 MCV 96 H MCH 33.0 MCHC 34.4 RDW 12.3 Plt Count 193 MPV 10.1 Immature Gran % 0.4 Neutrophils % 91.0 Lymphocytes % 4.6 Monocytes % 3.6 Eosinophils % 0.1 Basophils % 0.3 Nucleated RBC % 0.0 Absolute Neutrophils 13.58 H Absolute Lymphocytes 0.69 L Absolute Monocytes 0.54 Absolute Eosinophils 0.01 Absolute Basophils 0.04 VBG Lactate 1.7 H Sodium 135 L Potassium 4.7 Chloride 102 Carbon Dioxide 23.0 Anion Gap 10.0 BUN 39 H Creatinine 2.5 H Est GFR (CKD-EPI 2020) 26.14 Glucose 139 H Calcium 9.1 Magnesium 2.1 Total Bilirubin 1.0 AST 20 ALT 12 L Alkaline Phosphatase 92 Creatine Kinase Troponin I < 50 C-Reactive Protein Total Protein 7.3 Albumin 3.3 L Procalcitonin Urine Color Urine Clarity Urine pH Ur Specific [place] Urine Protein Urine Ketones Urine Blood Urine Nitrite Urine Bilirubin Urine Urobilinogen Ur Leukocyte Esterase Urine RBC Urine WBC Ur Epithelial Cells Urine Crystals Urine Bacteria Urine Mucus Ur Culture Indicated? Urine Glucose COVID-19 Source SARS-CoV-2 (PCR) Influenza Type A (PCR) Influenza Type B (PCR) RSV (PCR) Add-On Test Request 11/24/22 11/24/22 11/24/22 03:15 03:15 03:15 WBC RBC Hgb Hct MCV MCH MCHC RDW Plt Count MPV Immature Gran % Neutrophils % Lymphocytes % Monocytes % Eosinophils % Basophils % Nucleated RBC % Absolute Neutrophils Absolute Lymphocytes Absolute Monocytes Absolute Eosinophils Absolute Basophils VBG Lactate Sodium Potassium Chloride Carbon Dioxide Anion Gap BUN Creatinine Est GFR (CKD-EPI 2020) Glucose Calcium Magnesium Total Bilirubin AST ALT Alkaline Phosphatase Creatine Kinase Troponin I C-Reactive Protein 21.65 H Total Protein Albumin Procalcitonin 0.4 Urine Color Urine Clarity Urine pH Ur Specific [place] Urine Protein Urine Ketones Urine Blood Urine Nitrite Urine Bilirubin Urine Urobilinogen Ur Leukocyte Esterase Urine RBC Urine WBC Ur Epithelial Cells Urine Crystals Urine Bacteria Urine Mucus Ur Culture Indicated? Urine Glucose COVID-19 Source SARS-CoV-2 (PCR) Influenza Type A (PCR) Influenza Type B (PCR) RSV (PCR) Add-On Test Request DONE 11/24/22 11/24/22 11/24/22 03:15 03:15 03:38 WBC RBC Hgb Hct MCV MCH MCHC RDW Plt Count MPV Immature Gran % Neutrophils % Lymphocytes % Monocytes % Eosinophils % Basophils % Nucleated RBC % Absolute Neutrophils Absolute Lymphocytes Absolute Monocytes Absolute Eosinophils Absolute Basophils VBG Lactate Sodium Potassium Chloride Carbon Dioxide Anion Gap BUN Creatinine Est GFR (CKD-EPI 2020) Glucose Calcium Magnesium Total Bilirubin AST ALT Alkaline Phosphatase Creatine Kinase 391 H Troponin I C-Reactive Protein Total Protein Albumin Procalcitonin Urine Color Urine Clarity Urine pH Ur Specific [place] Urine Protein Urine Ketones Urine Blood Urine Nitrite Urine Bilirubin Urine Urobilinogen Ur Leukocyte Esterase Urine RBC Urine WBC Ur Epithelial Cells Urine Crystals Urine Bacteria Urine Mucus Ur Culture Indicated? Urine Glucose COVID-19 Source Nasopharynx SARS-CoV-2 (PCR) Negative Influenza Type A (PCR) Negative Influenza Type B (PCR) Negative RSV (PCR) Negative Add-On Test Request DONE 11/24/22 11/24/22 03:38 10:03 WBC RBC Hgb Hct MCV MCH MCHC RDW Plt Count MPV Immature Gran % Neutrophils % Lymphocytes % Monocytes % Eosinophils % Basophils % Nucleated RBC % Absolute Neutrophils Absolute Lymphocytes Absolute Monocytes Absolute Eosinophils Absolute Basophils VBG Lactate 1.9 H Sodium Potassium Chloride Carbon Dioxide Anion Gap BUN Creatinine Est GFR (CKD-EPI 2020) Glucose Calcium Magnesium Total Bilirubin AST ALT Alkaline Phosphatase Creatine Kinase Troponin I C-Reactive Protein Total Protein Albumin Procalcitonin Urine Color Yellow Urine Clarity Cloudy Urine pH 6.0 Ur Specific [place] 1.020 Urine Protein >=300 H Urine Ketones Trace H Urine Blood Large H Urine Nitrite Negative Urine Bilirubin Small H Urine Urobilinogen 1.0 H Ur Leukocyte Esterase Moderate H Urine RBC Not Applicable Urine WBC >50 H Ur Epithelial Cells Not Applicable Urine Crystals Not Applicable Urine Bacteria Not Applicable Urine Mucus Not Applicable Ur Culture Indicated? Yes Urine Glucose Negative COVID-19 Source SARS-CoV-2 (PCR) Influenza Type A (PCR) Influenza Type B (PCR) RSV (PCR) Add-On Test Request
--- NOTE | 2022-11-24 17:42 | IN_ITS ---
Date of service: 11/24/22 Time of Service: 08:52 PT Notes Visit Reasons: UTI,Sepsis Physical Therapy Inpatient Initial Evaluation Date: 11/24/2022 Referring Doctor: Danita Marquez MD PT Orders: PT CONSULT: Limited ability Precautions: Fall. Standard. Activity as tolerated. Dysphasic. Patient Profile/Admitting Diagnosis: Cesario is a 77-year-old male patient admitted on 11/24/2022 due to fever and plugged urinary catheter. Patient discharged for management of sepsis, pneumonia, urinary tract infection, BPH, Parkinson's disease, and schizoaffective disorder. PMHX: All Active Problems?(Updated 11/24/22 @ 09:05 by Pasquale Gardner MD) Discharge planning issues (Acute) Schizoaffective disorder (Acute) Sepsis (Acute) UTI (urinary tract infection) (Acute) Pneumonia (Acute) Medical History? Atrial fibrillation BPH (benign prostatic hyperplasia) Chronic kidney disease HTN (hypertension) Hx of hyperlipidemia Parkinsons disease Social History/Home Situation: SNF resident Equipment Owned/DME: Unknown Subjective: Patient nodded when asked if he is okay being seen by PT. He gave thumb up/down signs to questions asjed of him throughout. Able to nod and shake his head too. Objective: General Observation: Supine in bed. Telemetery monitoring in place. Wilkerson catheter in place. Able to answer yes or no only. Able to nod and give thumbs up/down sign when instructed. Mental Status: Dysphasic. Alert and oriented as to person and purpose. Able to pay attention, focus, and respond appropriately. Able to answer yes or no only. Able to nod and give thumbs up/down sign for consent/non-consent Pain: None indicated by patient when asked Vital Signs: Desaturated to 73% on RA when patient was sat in bed; recovered after about 1 minute ROM: Right Upper Extremity: Shoulder Flexion WFL. Shoulder abduction WFL. Elbow flexion WFL. Wrist flexion WFL. Functional opening and closing of hand WFL. Left Upper Extremity: Shoulder Flexion WFL. Shoulder abduction WFL. Elbow flexion WFL. Wrist flexion WFL. Functional opening and closing of hand WFL. Right Lower Extremity: Hip flexion lacks the last 50% of available motion. Hip abduction lacks the last 50% of available motion. Knee flexion lacks the last 50% of available motion. Ankle dorsiflexion lacks the last 50% of available motion. Ankle plantarflexion lacks the last 50% of available motion. Left Lower Extremity: Hip flexion lacks the last 50% of available motion. Hip abduction lacks the last 50% of available motion. Knee flexion lacks the last 50% of available motion. Ankle dorsiflexion lacks the last 50% of available motion. Ankle plantarflexion lacks the last 50% of available motion. Strength: Right Upper Extremity: Shoulder flexors 3/5. Shoulder abductors 3/5. Elbow flexors 3/5. Elbow extensors 3/5. Chin Strap Sewer strong. Left Upper Extremity: Shoulder flexors 3/5. Shoulder abductors 3/5. Elbow flexors 3/5. Elbow extensors 3/5. Chin Strap Sewer strong. Right Lower Extremity: Hip flexors 3-/5. Hip abductors 3-/5. Knee flexors 3-/5. Knee extensors 3-/5. Ankle dorsiflexors 3-/5. Ankle plantarflexors 3-/5. Left Lower Extremity: Hip flexors 3-/5. Hip abductors 3-/5. Knee flexors 3-/5. Knee extensors 3-/5. Ankle dorsiflexors 3-/5. Ankle plantarflexors 3-/5. Bed Mobility/Transfers: Supine to sit with moderate assist, PT needed to pull on draw sheet to assist with scooting forward Sit to supine with maximal assist Sit to stand will need to be assessed with assistance of 2, unsafe with assist of 1 Stand to sit will need to be assessed with assistance of 2, unsafe with assist of 1 Bed to reclining chair will need to be assessed with assistance of 2, unsafe with assist of 1 Reclining chair to bed will need to be assessed with assistance of 2, unsafe with assist of 1 Gait: Will need to be assessed with assistance of 2, unsafe with assist of 1 Balance: Static Sitting: Fair Dynamic Sitting: Poor Static Standing: Unable to test Dynamic Standing: Unable to test Special Tests: Mobility Limitations Standardized Measure [facility] AM-PAC 6 clicks Basic Mobility Inpatient Short Form: Raw Score: 15 CMS Score: 58% deficit Informed Consent/Education: Patient was instructed in purpose of PT consult and plan of care. Agreeable to proceed with established PT POC to achieve personal goals. Assessment: Able to follow singel step commands. Patient was only able to tolerate edge of bed sitting up to about 10 minutes with desaturation episodes x 2 down to 73% and 84% with recovery after about 1 minute each. Deferred further mobility testing as patient requires assiatnce of at least 2 people to be safely moved out of bed. Will coordinate mobility assessment tomorrow with nursing staff/HOLISTIC SPECIALIST for safety. Patient presents with clinical signs and symptoms consistent with current/admitting diagnoses that have resulted to mobility limitations, gait instability, generalized weakness, and overall ADL decline as demonstrated by the following impairment level findings: 1. Decreased strength to B UE/LE major muscle groups 2. Impaired sitting balance 3. Impaired activity tolerance 4. Limitation of joint range of motion in B LE joints 5. Limited verbal expression Impairments are contributing to the following functional limitations: 1. Decline in bed mobility skills 2. Decline in transfer skills 3. Difficulty with ambulation without assistive device and physical assistance 4. Increased completion time for mobility ADL performance 5. Increased risk for falls 6. Difficulty with managing steps alone safely Patient is assessed as a 43484 high complexity based on the following: History: 77-year-old male with past medical history as indicated above Examination: Demonstrable impairment in strength, balance, and mobility level with underlying impairments and functional limitations as exhibited above as well as deficit score of 58% utilizing the [facility] Mobility Inpatient Short Form Presentation: Evolving Decision Makin high complexity Goals: Goals X1 week 1. Supine-Sit minimal assist 2. Sit-Supine minimal assist 3. Sit-Stand minimal assist 4. Stand-Sit TBD once full mobility assessment is completed 5. Bed-Chair TBD once full mobility assessment is completed 6. Chair-Bed TBD once full mobility assessment is completed 7. Gait on level surface TBD once full mobility assessment is completed Plan of Care/Treatment Plan: 1-2x/day, 7 days/week x 1 week. Plan of care has been reviewed with the HOLISTIC SPECIALIST providing the service under Physical Therapy direction. Initiate Physical Therapy intervention for pain management as needed, strengthening, bed mobility, transfers, gait, stairs, balance training, and use of assistive device. DISCHARGE RECOMMENDATIONS: [] Home with no services [] [] Home with services [specify] [] Home with outpatient PT [] [] SNF for continued rehabilitation [] [] Asset Administrator Care [] [] SNF versus LTC based on ability to participate and progress [] [X] Return to SNF when medically cleared TREATMENT CODE/TIME: 89603 x 30 minutes, 45326 x 11 minutes beginnng at 8:52 AM. Thank you for the opportunity to participate in the care of this patient. Penelope Cruz PT, DPT, CLT [facility] [place], [place]
[2022-11-24] MEDS: Normal Saline 500 ML 30 ML IV (18:00)
[2022-11-24] MEDS: Simvastatin 20 MG TAB PO (21:03)
[2022-11-24] MEDS: OLANZapine 5 MG TAB PO (21:04)
[2022-11-24] MEDS: Normal Saline Flush 10 ML SYR IVP (21:05)
[2022-11-25] VITALS (26 sets, daily range): BP systolic 88–139; BP diastolic 48–74; PULSE 62–83; RESP 10–23; TEMP 36.3–36.8; O2SAT 94–99
[2022-11-25] MEDS: Heparin 5,000 UNITS/ML VIAL 5000 UNITS SC ×3 (03:03→17:48)
[2022-11-25] MEDS: PIPERACILLIN/TAZO 3.375 GM in Normal Saline 50 ML IVPB ×4 (06:06→23:20)
[2022-11-25 07:00] LABS: Abs Immature Grans 0.03 10^3/uL (0.0-0.06); Absolute Basophil Count 0.04 10^3/uL (0.0-0.2); Absolute Eosinophil Count 0.65 10^3/uL (0.0-0.7); Absolute Lymphocyte Count 0.84 10^3/uL (1.2-3.4); Absolute Neutrophil Count 6.84 10^3/uL (1.2-6.7); Basophils % 0.5; Eosinophils % 7.5; HCT 37.1 % (40.0-50.0); HGB 12.5 g/dL (13.5-17.5); Immature Grans % 0.3; Lymphocytes % 9.7; MCH 33.2 pg (27.0-33.0); MCHC 33.7 % (32.0-36.0); MCV 98 fL (80-95); MPV 10.3 fL (8.0-11.0); Monocytes % 3.4; Neutrophils % 78.6; Platelet Count 155 10^3/uL (130-400); RBC 3.77 10^6/uL (4.36-5.78); RDW 12.7 % (11.8-14.1); RDW-SD 45.6 fL
[2022-11-25 07:11] LABS: Anion Gap 7.7 mmol/L (3-11); BUN 23 mg/dL (7-18); CO2 26.3 mmol/L (21.0-32.0); CREATININE 1.4 mg/dL (0.70-1.30); Chloride 109 mmol/L (98-107); Estimated GFR 52.41 (mL/min/1.73m2); Glucose 91 mg/dL (74-106); Magnesium 2.1 mg/dL (1.8-2.4); Potassium 4.2 mmol/L (3.5-5.1); Sodium 143 mmol/L (136-145)
[2022-11-25 07:24] LABS: C-Reactive Protein > 25.00 mg/dL (0.0-0.3)
[2022-11-25 07:26] LABS: Lactate 0.8 mmol/L (0.6-1.4)
--- NOTE | 2022-11-25 08:32 | PDOC.CMPRO ---
- If Service Date Differs Date of service: 11/25/22 Time of Service: 08:33 Care Management Progress Note S/O: Cesario was sitting up in bed when CM met with him. He responded with one word answers when asked questions about how he is feeling and about the Palliative family meeting planned for later in the day. After the meeting, the provider reported that Cesario made the decision to change his code status from full code to DNI. He was very clear that he did not want to be intubated or have a feeding tube but is agreeable to CPR. His brother and [id number] were present (they share POA for him) during the meeting and were included in the discussion. Clinically, Cesario has improved. He was transferred out of the ICU today and is doing well. He is afebrile and his vital signs are stable. His blood cultures are negative at 24 hours and his urine culture is growing gram negative rods. CM will continue to follow. A: Cesario is a 77 year old man admitted on 11/24/20 with sepsis P:Cesario will return to [facility] when medically stable. He will follow up with the facility provider and plan of care and transport via facility wheelchair van. CM will continue to support Cesario and assess for discharge needs.
--- NOTE | 2022-11-25 08:35 | PGE_ITS ---
Date of Service Date of service: 11/25/22 Time of Service: 08:35 Assessment and Plan Assessment and plan (1) Sepsis: Status: Acute Assessment and plan: Due to a UTI associated with an indwelling ribeiro catheter. Blood cx negative at 24 hrs. Urine C&S pending. Cr better. US renal w/o obstructive uropathy/stones. Ribeiro exchanged at [facility] the day of presentation. Continue empiric zosyn. D/c vanco (MRSA nares negative). Palliative care planning a family meeting. Qualifiers: Sepsis type: sepsis due to unspecified organism Sepsis acute organ dysfunction status: with acute organ dysfunction Severe sepsis acute organ dysfunction type: acute renal failure Acute renal failure type: unspecified Severe sepsis shock status: without septic shock Qualified Code(s): A41.9 - Sepsis, unspecified organism; R65.20 - Severe sepsis without septic shock; N17.9 - Acute kidney failure, unspecified (2) UTI (urinary tract infection): Status: Acute Assessment and plan: As above (3) [place] (acute kidney injury): Status: Acute Assessment and plan: Improved. No role for IVF at this time; however, diminished PO intake due to dysphagia. Speech consulted. May have to give small boluses of IVF. (4) Atrial fibrillation: Assessment and plan: Paroxysmal afib. Currently in NSR. Hold outpatient diltiazem 120 mg PO daily. Continue short acting diltiazem 30 mg PO q6hrs with holding parameters. Not on anticoagulation as outpatient. Palliative care to establish goals of care. Conversation re anticoagulation could be a part of that. (5) BPH (benign prostatic hyperplasia): Assessment and plan: H/o chronic indwelling ribeiro. Will need urology f/u for consideration of a suprapubic catheter. Last changed 11/24/22 at [facility] immediately prior to coming to [facility]. (6) HTN (hypertension): Assessment and plan: Continue holding parameters on diltiazem, as above (7) Parkinsons disease: Assessment and plan: Continue current Parkinsons meds. PT, OT, speech for a swallow eval consulted. (8) Schizoaffective disorder: Status: Acute Assessment and plan: Continue olanzapine. (9) Sacral decubitus ulcer: Status: Acute Assessment and plan: C/s wound care (10) Discharge planning issues: Status: Acute Assessment and plan: Full code Palliative code consulted. PT, OT, speech consulted. Transferred out of ICU to [facility] (no tele needs). (11) DVT prophylaxis: Status: Acute Assessment and plan: SC heparin given [place]. Subjective Subjective Interval history since last seen: Mr Moralez is doing better. He denies dizziness, chest pain, shortness of breath, nausea, pain anywhere. He has been verbal and also communicating via a dry erase board. He is getting transferred out of the ICU to [facility]. He is participating with PT and OT. Nursing noted a sacral wound on admission and requested a wound care consult. Exam Narrative Exam Narrative: General: male who is awake, A&Ox2 at least, follows commands, answers questions yes/no. HEENT: EOMI, MMM Heart: seemingly regular rhythm, no m/r/g Lungs: CTAB/diminished breath sounds B Abdomen: soft, nontender, nondistended : has a ribeiro: yellow urine draining Sacral decubitus sacral wound (at least stage 3) with hardened nonblanchable skin surrounding it. Extremities: no edema BLEs, wearing tall white socks Objective Last Vital Signs Temp 36.8 C 11/25/22 07:15 Pulse 77 11/25/22 07:15 Resp 17 11/25/22 07:15 BP 111/67 11/25/22 06:10 Pulse Ox 97 11/25/22 07:15 Laboratory Results - last 24 hr 11/24/22 11/24/22 11/24/22 03:15 03:15 03:15 WBC RBC Hgb Hct MCV MCH MCHC RDW Plt Count MPV Immature Gran % Neutrophils % Lymphocytes % Monocytes % Eosinophils % Basophils % Nucleated RBC % Absolute Neutrophils Absolute Lymphocytes Absolute Monocytes Absolute Eosinophils Absolute Basophils VBG Lactate Sodium Potassium Chloride Carbon Dioxide Anion Gap BUN Creatinine Est GFR (CKD-EPI 2020) Glucose Calcium Magnesium Creatine Kinase 391 H C-Reactive Protein Procalcitonin 0.4 Add-On Test Request DONE 11/24/22 11/25/22 11/25/22 10:03 06:35 06:35 WBC 8.70 RBC 3.77 L Hgb 12.5 L D Hct 37.1 L MCV 98 H MCH 33.2 H MCHC 33.7 RDW 12.7 Plt Count 155 MPV 10.3 Immature Gran % 0.3 Neutrophils % 78.6 Lymphocytes % 9.7 Monocytes % 3.4 Eosinophils % 7.5 Basophils % 0.5 Nucleated RBC % 0.0 Absolute Neutrophils 6.84 H Absolute Lymphocytes 0.84 L Absolute Monocytes 0.30 Absolute Eosinophils 0.65 Absolute Basophils 0.04 VBG Lactate 1.9 H Sodium 143 Potassium 4.2 Chloride 109 H Carbon Dioxide 26.3 Anion Gap 7.7 BUN 23 H Creatinine 1.4 H D Est GFR (CKD-EPI 2020) 52.41 Glucose 91 Calcium 9.0 Magnesium 2.1 Creatine Kinase C-Reactive Protein > 25.00 H Procalcitonin Add-On Test Request 11/25/22 07:20 WBC RBC Hgb Hct MCV MCH MCHC RDW Plt Count MPV Immature Gran % Neutrophils % Lymphocytes % Monocytes % Eosinophils % Basophils % Nucleated RBC % Absolute Neutrophils Absolute Lymphocytes Absolute Monocytes Absolute Eosinophils Absolute Basophils VBG Lactate 0.8 Sodium Potassium Chloride Carbon Dioxide Anion Gap BUN Creatinine Est GFR (CKD-EPI 2020) Glucose Calcium Magnesium Creatine Kinase C-Reactive Protein Procalcitonin Add-On Test Request Objective Narrative Objective Narrative: US renal: 1.? No significant ultrasound findings in the kidneys.? No hydronephrosis. 2.? Ribeiro catheter in the urinary bladder. Time Spent with Patient Time Spent with Patient: 25-34 minutes Time was spent: preparing to see the patient(eg.review tests), obtaining and/or reviewing separately otained hiistory, ordering medications,tests, procedures, referring, communicating with other health campground caretaker, indepentently interpreting results, counseling the patient and care coordination
--- NOTE | 2022-11-25 08:39 | OTIE_ITS ---
Occupational Therapy Notes Inpatient Occupational Therapy Evaluation Date: 11/25/22 Referring Doctor:Danita Marquez MD OT Orders: Non Urgent Precautions: Fall, standard, full PATIENT PROFILE/ADMITTING DIAGNOSIS: Pt is a 77-year-old male admitted through the ED due to fever.? Patient was admitted to ICU for management of sepsis, pneumonia, urinary tract infection, BPH, Parkinson's disease, and schizoaffective disorder. Past Medical History: All Active Problems?(Updated 11/24/22 @ 09:05 by Pasquale Gardner MD) Discharge planning issues (Acute) Schizoaffective disorder (Acute) Sepsis (Acute) UTI (urinary tract infection) (Acute) Pneumonia (Acute) Medical History? Atrial fibrillation BPH (benign prostatic hyperplasia) Chronic kidney disease HTN (hypertension) Hx of hyperlipidemia Parkinsons disease Social History/Home Situation: Pt is unable to provide OT with social hx, per CM note- Cesario resides at [facility]. He has schizoaffective disorder and Parkinsons's disease and needs modifications to communicate as he cannot do this verablly. He requires assistance with ADLs and all care. Equipment owned/DME: Needs met by SNF SUBJECTIVE: Pt was lying in bed when OT arrived. He has communication board in his room. He is able to understand verbal communication but requires the board to respond. OBJECTIVE: General Observation: BP cuff in (R) UE, IV access in (B) UE, ribeiro in place, sacral wound and scrotal edema. Mental Status: A&Ox2 Pain: Facial grimace for pain with palpation to the sacrum ROM: RUE Limited shoulder flexion which may be due to bed positioning, otherwise WFL L UE AROM WFL FUNCTIONAL MOBILITY/ADLS: Transfers with (A) Rolling in bed max (A) BATHING max (A) set up/clean up Bathing UE with mod vc (I) face and min (A) (B) UE, mod (A) abdomen Bathing LE max (A) DRESSING lying in bed Dressing UE max (A) don and doffing [facility] gown Dressing LE NT TOILETING ribeiro in place BALANCE: pt was seated in bed with max (A) support to pts abdomen SPECIAL TESTS: Daily Activity Limitations Standardized Measure [facility] AM -PAC ?6 clicks? Daily Activity Inpatient Short Form: Raw score: 9 Standardized score: 25.33 CMS score: 79.59% INFORMED CONSENT/EDUCATION: Pt instructed in purpose of OT Consult and plan of care. ASSESSMENT: Patient is a 77-year-old male referred to occupational therapy services with diagnosis of management of sepsis, pneumonia, urinary tract infection, BPH, Parkinson's disease, and schizoaffective disorder. Patient presents with clinical signs and symptoms consistent with dx, as demonstrated by the following impairment level findings/ functional limitations: Impairments in ADL/IADL and leisure activities, decreased functional mobility, decreased functional activity tolerance, wound on sacral area, stiffness in (B) LE and UE, decreased fine motor control of (B) UE, high risk for contractures in (B) UE. AMPAC score 9 Patient is assessed as a High 23361 complexity based on the following: History: see above Examination: see functional limitations as noted above Presentation: evolving Decision Making: AMPAC score 9 GOALS Goals x1 week 1. Grooming- max (A) set, (I) with performance of oral hygiene 2. Dressing- mod (A) don and doffing hospital gown 3. Bathing- (I) UE 4. Eating- mod (A) eating routine PLAN OF CARE/TREATMENT PLAN: 1x/day, 5 days/ week x 1week Initiate Occupational Therapy Services for bathing, dressing, grooming, toileting, eating, transfer training. DISCHARGE RECOMMENDATIONS Return to SNF when medically cleared per MD. TREATMENT TIME/MINUTES/CODES [id number], [id number], 25 minutes Anitra Mendes OTR/L [facility]
[2022-11-25] MEDS: Benztropine 1 MG TAB PO (09:22)
[2022-11-25] MEDS: Normal Saline Flush 10 ML SYR IVP ×2 (09:23→23:21)
[2022-11-25] MEDS: Aspirin 81 MG CHEW PO (09:23)
[2022-11-25] MEDS: Carbidopa 25/Levodopa 100 TAB PO ×4 (09:23→20:43)
--- NOTE | 2022-11-25 10:04 | WOUNDCONS ---
- If Service Date Differs Date of service: 11/25/22 Time of Service: 10:30 Wound Initial Evaluation Narrative: Pt is a 77 yr old male who comes in with a UTI and sepsis. CXR also shows early signs of pneumonia. [facility]. [facility] due to his medication induced Parkinsonism and the inability to care for his own ADLs. Was previously at [facility] in [place]. He is also nonverbal and cannot communicate his needs verbally. He does attempt to communicate in writing. Per the Physical Therapy assessment: Patient presents with clinical signs and symptoms consistent with current/admitting diagnoses that have resulted to mobility limitations, gait instability, generalized weakness, and overall ADL decline as demonstrated by the following impairment level findings: 1. Decreased strength to B UE/LE major muscle groups 2. Impaired sitting balance 3. Impaired activity tolerance 4. Limitation of joint range of motion in B LE joints 5. Limited verbal expression Impairments are contributing to the following functional limitations: 1. Decline in bed mobility skills 2. Decline in transfer skills 3. Difficulty with ambulation without assistive device and physical assistance 4. Increased completion time for mobility ADL performance 5. Increased risk for falls 6. Difficulty with managing steps alone safely Pt also has a hx of: CKD, HTN, hyperlipidemia, schizophrenia, and atrial fib. Has had a long indwelling ribeiro catheter pending a suprapubic catheter. The pt did visit with Palliative care and will continue to [facility]. INITIAL CURRENT WBC 14.92 8.7 LACTATE 1.7 , 1.9 0.8 CRP 21.65 >25 BUN 39 23 CRE 2.5 1.4 Blood cultures are pending. MRSA is negative. Body Four View: 1 - Mixed shear, denuded, unstageble injury. 2 - Healed shiny area medial thigh. - Wound Left ischial tuberocity Wound Type: Deep Tissue Injury (DTI), Other (shear injury) Pressure Ulcer Stage: Eschar/Unstageable Wound General Appearance: Blackened, Bleeding, Necrotic, Unapproximated, Denuded Wound Bed Greatest Portion: Red (Granulation) Wound Bed Lesser Portion: Pale [place], Yellow (Slough), Black (Eschar) Wound Surrounding Tissue Appearance: [place] Percent of Wound Bed Granulated/Red: 50 Percent of Wound Bed Slough/Yellow: 35 (slough and pale pink) Percent of Wound Bed Eschar/Black: 15 Wound Length: 4.33 in (11cm) Wound Width: 0.79 in (2cm) Wound Depth: 0.08 in (0.2cm) Wound Drainage Amount: Minimal Wound Drainage Odor: None/Absent Wound Drainage Description: Bloody Wound Topical Solution/Irrigant: Other (Anasept cleanser) Wound Debridement Method: Other (Debrisoft sponge) Wound Debridement Result: Yellow Sloughing Remains, Necrotic Remains, Other (flaky skin removed) Wound Debridement Amount of Tissue Removed: Minimal Right ischial tuberosity Wound Type: Deep Tissue Injury (DTI), Other (denuded and shear injury) Pressure Ulcer Stage: Eschar/Unstageable Wound General Appearance: Blackened (olmos spots), Bleeding, Unapproximated, Denuded Wound Bed Greatest Portion: Red (Granulation) Wound Bed Lesser Portion: Yellow (Slough), Black (Eschar), Other (elevated area, possible hypergranulosis) Wound Surrounding Tissue Appearance: [place] Percent of Wound Bed Granulated/Red: 50 Percent of Wound Bed Slough/Yellow: 45 (denuded, pink, flaky) Percent of Wound Bed Eschar/Black: 5 (grayish areas noted) Wound Length: 5.12 in (13 cm) Wound Width: 1.57 in (4 cm) Wound Depth: 0.16 in (0.4cm) Wound Drainage Amount: Minimal Wound Drainage Odor: None/Absent Wound Drainage Description: Bloody Wound Topical Solution/Irrigant: Other (Anasept) Wound Debridement Method: Other (Debrisoft) Wound Debridement Result: Necrotic Remains (small slit over coccyx of 1cm length that is blackened), Other (hypergranulosis tissue remains) Wound Debridement Amount of Tissue Removed: Minimal Right Medial Thigh Wound Type: Other (healed pressure injury, light purple olmos shiny skin) Wound General Appearance: Well Approximated, Asymptomatic, Open to air, Clean/Dry, Healing Well Wound Bed Greatest Portion: Dusky Red (no open areas) Wound Length: 1.77 in (4.5cm) Wound Width: 2.76 in (7 cm) Wound Depth: 0 in (0 cm) Wound Drainage Amount: None Wound Drainage Odor: None/Absent Wound Topical Solution/Irrigant: Other (Anasept) Pt has mixed skin issues. Has injuries consistent with shearing with dry edges and flaking. Has deep tissue area on the left ischial tuberosity as well as light olmos areas on the right ischial tuberosity. There is an area of hypergranulosis on the right ischial tuberosity that may need surgical intervention. Have requested a surgical consult. Initially applied santyl to the necrotic tissue with skin barrier to denuded areas. Plan will be to focus on open, denuded, hypergranular tissue by continuing to use a compound barrier cream and mepilex and then progress to address the small necrotic areas by using Santyl. The santyl will be on hold for now. To re-evaluate at next assessment. - Photo Photo: - Treatment/Dressing Change Topicals/Ointments: Zincoxide (clotrimazole, zinc oxide, vitamin A&D compound) Cleanse With: Anasept Dressing Types: Mepilex w/Border Dressing Comment: Change daily and prn. - Nutrition Education Reviewed Nutrition Education: Yes Note: Pt is awaiting a speech evaluation. Once speech has made recommendations, pt instructed to have a high protein intake for wound healing. - Recomendation Recomendation:: Bilateral ischial tuberosities: 1. Cleanse area with Anasept spray. Allow to dwell for 2 minutes. 2. Pat dry. 3. Apply compound cream of clotrimazole 1% cream, zinc oxide, and vitamin A&D to area. 4. Apply skin prep to jr wound skin. 5. Apply a large mepilex sacral to area. Change daily and prn. Right medial thigh.: 1. Cleanse area with Anasept spray. Allow to dwell for 2 minutes. 2. Pat dry. 3. Apply compound cream of clotrimazole 1% cream, zinc oxide, and vitamin A&D to area. 4. Apply skin prep to jr wound skin. 5. Apply a 4x4 mepilex with border to area. 6. Make sure ribeiro catheter is not causing pressure over the area. Change daily and prn. Reposition patient at least every 2 hours from side to side. Use pillow behind back and hips. Place pillow between the knees and ankles. One pillow under head and one under upper arm. Keep head of bed no higher than 45 degrees to reduce sliding and shearing. May be on his back for meals only. When up in chair, have padded cushion in chair. May be up in chair for one hour maximum during each meal. Have pt frequently shift weight from side to side using a pillow under one side at a time. Physcian/Nurse Practioner Notified: Yes (Dr. Marquez) Referrals: Dietary, Physical Therapy, Surgeon Treatment Time - Time Total Time Spent with Patient: 45 minutes - Patient Will be Seen Weekly Treatment: daily - For: For:: 2 weeks
[2022-11-25] MEDS: Collagenase 30 GM TUBE TP (10:30)
--- NOTE | 2022-11-25 11:43 | SP_ITS ---
Date of service: 11/25/22 Time of Service: 11:08 Subjective Patient received lying on R side in bed immediately post wound consult. Hiccuping and open mouth breathing present. Patient on clear liquid diet, nursing reported coughing with coffee and water, no difficulty with jello. Some bolus holding noted by nurse also. Oral care completed this AM. H/P: Cesario is a 77-year-old male admitted through the ED due to fever.? Patient was admitted to ICU for management of sepsis, pneumonia, urinary tract infection, BPH, Parkinson's disease, and schizoaffective disorder. Cesario resides at [facility]. He has schizoaffective disorder and Parkinsons's disease and is unable to communicate his needs verbally. Cesario does use a pad and pen to communicate in writing however his writing is often difficult to decipher. He requires assistance with ADLs and all care. Using whiteboard to communicate. CXR results 11/24/22: Faint patchy bibasilar opacities concerning for early/developing pneumonia. Objective Objective Patient presents with overall deconditioning of oropharyngeal and facial musculature. He demonstrated reduced labial and lingual coordination, weakness of labial, buccal, mandibular, and lingual structures, and asymmetry of soft palate (deviation to R side). Facial nerve involvement evidenced by inability to raise eyebrows. Accessory nerve impairment also suspected due to poor ability to shrug shoulders (however, this may have been affected by positioning). Small, bleeding cut on L mid-tongue blade, shown to nurse. He was able to follow 1-step commands and attempted all tasks during oral motor assessment. Phonation minimally assessed due to reduced verbal output as patient's baseline. Volitional swallow absent, volitional cough extremely weak and judged to be inadequate for airway clearance. Patient with some missing teeth, but most teeth present- broken and ground down. Patient was assessed with PO trials of ice chips, thin liquids by spoon and cup, nectar thick liquids by spoon, cup, and straw, and pureed solid. Patient tolerated single ice chips and spoonfuls of thin water as evidenced by absent overt s/sx aspiration/penetration. Patient unable to follow command for small/single sips by cup and used consecutive, large swallows, which resulted in a prolonged aphonic cough. Patient demonstrated impulsivity with multiple swallows of nectar thick liquids also, but no overt s/sx airway disturbance demonstrated. He was unable to draw nectar thick liquids through straw despite max multimodal cues. During consumption of pureed textures, patient often placed 2-3 spoonfuls in his mouth without swallowing. Required consistent verbal cues which successfully triggered pharyngeal swallow initiation. Assessment Patient presents with moderate to severe oropharyngeal dysphagia. No notable s/sx of esophageal dysphagia present. Dysphagia c/b severe deconditioning, positive CXR, cognitive impairment, and overt s/sx aspiration with thin liquids. Recommendations: Recommend nectar thick liquids by cup only (no straws), pureed solids, meds crushed in puree. Patient should have 1:1 supervision to allow for cueing/initiation of pharyngeal swallow between bites and to monitor rate of intake when patient is self-feeding. Patient may have sips and chips (small ice chips one at a time and thin water by spoon) between meals and after thorough oral care for extra hydration and to reduce severity of dry mouth due to mouth breathing. Please continue oral care after all meals and swab any thickened mucus on tongue and roof of mouth as needed to prevent aspiration of oral bacteria. Also recommend MBSS as inpatient if patient remains in hospital into next week, or OP MBSS as patient was reportedly eating a pureed diet at home and has had a steady decline with parkinsonism. He would benefit from continued ST intervention at the subacute level- ST or IRU. Plan ST to monitor/follow up with meals as acute infection improves for potential diet advancement. Director Strategic Planning Goals: Patient will demonstrate adequate nutrition/hydration with implementation of clinical and instrumental swallowing assessment and treatment as evidenced by adequate amount of PO intake and increased ease/efficiency of PO intake. Short Term Goals: Patient will tolerate least restrictive diet with <10% overt s/sx aspiration/penetration. Coding Diagnoses Oropharyngeal dysphagia R13.12 Assessment and Plan Assessment and plan (1) Oropharyngeal dysphagia: Status: Acute
[2022-11-25] MEDS: dilTIAZem 30 MG TAB PO ×3 (12:07→23:20)
[2022-11-25 12:31] LABS: HCT 39.1 % (40.0-50.0); HGB 12.7 g/dL (13.5-17.5)
--- NOTE | 2022-11-25 13:03 | NUR.NOTE ---
Nursing Note: pt transferred from ICU to med/surg at 12:40, report was taken from YOAN Brewer.
--- NOTE | 2022-11-25 13:27 | W.PALPGNOTE ---
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 (3) Unable to walk: Status: Acute (4) Communication deficit: Status: Acute (5) UTI (urinary tract infection): Status: Acute (6) Sepsis: Status: Acute Qualifiers: Acute renal failure type: unspecified Sepsis acute organ dysfunction status: with acute organ dysfunction Sepsis type: sepsis due to unspecified organism Severe sepsis acute organ dysfunction type: acute renal failure Severe sepsis shock status: without septic shock Qualified Code(s): A41.9 - Sepsis, unspecified organism; R65.20 - Severe sepsis without septic shock; N17.9 - Acute kidney failure, unspecified (7) Indwelling Ribeiro catheter present: Status: Acute (8) Sacral decubitus ulcer: Status: Acute (9) [place] (acute kidney injury): Status: Acute (10) Oropharyngeal dysphagia: Status: Acute (11) Palliative care patient: Status: Acute Assessment and plan: Cesario is a very pleasant elderly man with schizoaffective disorder and parkinsonism due to medications with difficulty expressing himself. He was seen for palliative consultation with his brother, Dougie and his [id number], Shirley present. Dougie is his HCA. Discussed goals: he is interested in PT. Feels he spends too much time in bed at the Rehab facility. He is not clear if he would want a suprapubic catheter or not. He is clear that he does not want to be intubated/on a ventilator. He still wants attempts to restart his heart- this will need review. He has AD- A COLST was completed to reflect the above. He will be started on AC for PAF. He will return to the Rehab when he is medically cleared. He hopes to resume PT. He has pressure sores to his scarum. F/u with palliative in the next few weeks. Subjective Subjective Interval history since last seen: Cesario was seen in his hospital room with his brother, Dougie and [id number], Shirley present. Dougie provided most of the history but often asked Cesario to confirm and he is able to do so. Discussed overall goals of care- he is interested in PT, he was always active. Reviewed CODE status. He is clear he is a DNI. He was able to express this. He is not ready to forgo CPR at this point. We discussed cardiac resuscitation extensively and he continues to state that he would want attempts to restart his heart. His speech is soft and garbled but he is able to communicate, especially with his brother, Dougie. The hospitalist was interested to know if Cesario would ever want a suprapubic catheter. His brother reports that he has had UTI x2 at his old facility, it has been about 3 years since his last one. Sesar asked Cesario if he would want a suprapubic catheter after discussion of what they are and he was unable to give a clear answer. Dougie did not think it was pressing since he has not had frequent UTIs. Dougie would prefer to talk it over with Cesario and their sister and give it time. He is not clear one way or the other. Cesario was found to have extensive pressure ulcers. His brother was surprised to hear this. He states this is the first they have heard of the sores, however, he spends most of his time in bed at the Rehab and thus, he can see where his skin would break down. Discussed anticoagulation in the setting of PAF. Dougie does not know why he is not on AC. He has not had a lot of falls. He has not had any issues with bleeding that Dougie can recall. Dougie agrees with AC, he confirmed that Cesario was in agreement as well. Exam Narrative Exam Narrative: General: very pleasant, elderly man sitting up in the recliner. He has difficulty expressing himself but is able to say some words and appears to have comprehension. HEENT: EOMI, MMM Heart: irregularly irregular rhythm, no m/r/g Lungs: respirations appear even and unlabored, lung sounds are diminished t/o. Abdomen: soft, nontender, nondistended : ribeiro with yellow urine draining. Extremities: no edema BLEs Objective Last Vital Signs Temp 36.6 C 11/25/22 13:07 Pulse 71 11/25/22 12:55 Resp 16 11/25/22 12:55 BP 111/69 11/25/22 12:55 Pulse Ox 98 11/25/22 12:55 Laboratory Results - last 24 hr 02/08/0711/25/22 11/25/22 06:35 06:35 07:20 WBC 8.70 RBC 3.77 L Hgb 12.5 L D Hct 37.1 L MCV 98 H MCH 33.2 H MCHC 33.7 RDW 12.7 Plt Count 155 MPV 10.3 Immature Gran % 0.3 Neutrophils % 78.6 Lymphocytes % 9.7 Monocytes % 3.4 Eosinophils % 7.5 Basophils % 0.5 Nucleated RBC % 0.0 Absolute Neutrophils 6.84 H Absolute Lymphocytes 0.84 L Absolute Monocytes 0.30 Absolute Eosinophils 0.65 Absolute Basophils 0.04 VBG Lactate 0.8 Sodium 143 Potassium 4.2 Chloride 109 H Carbon Dioxide 26.3 Anion Gap 7.7 BUN 23 H Creatinine 1.4 H D Est GFR (CKD-EPI 2020) 52.41 Glucose 91 Calcium 9.0 Magnesium 2.1 C-Reactive Protein > 25.00 H 11/25/22 12:09 WBC RBC Hgb 12.7 L Hct 39.1 L MCV MCH MCHC RDW Plt Count MPV Immature Gran % Neutrophils % Lymphocytes % Monocytes % Eosinophils % Basophils % Nucleated RBC % Absolute Neutrophils Absolute Lymphocytes Absolute Monocytes Absolute Eosinophils Absolute Basophils VBG Lactate Sodium Potassium Chloride Carbon Dioxide Anion Gap BUN Creatinine Est GFR (CKD-EPI 2020) Glucose Calcium Magnesium C-Reactive Protein
--- NOTE | 2022-11-25 13:38 | PT.INTREAT ---
PT Notes Visit Reasons: UTI,Sepsis Inpatient Physical Therapy Treatment Note [facility] Date: 11/25/2022 PRECAUTIONS: Activity as tolerated SUBJECTIVE: Cesario is pleasant and agreeable to participating in PT. Although patient is limited in verbal communications, he is able to answer questions with yes or no appropriately. OBJECTIVE: PAIN: No c/o pain BED MOBILITY/TRANSFERS Supine-sit: Min A Sit-stand: CGA x2 with use of STEDY Stand-sit: CGA with use of STEDY Bed-chair: STEDY with SBA GAIT: Not assessed THEREX: Patient was instructed in a LE strengthening program, completed in a supine position in a.m. and in a standing position (in STEDY) in p.m., to include: ankle pumps, quad sets, glute sets, hip abduction and knee flexion in supine, and marching, weight shifting, and modified [id number] in standing in STEDY. ASSESSMENT: Patient was able to tolerate the addition of static standing as well as standing exercises utilizing STEDY support. PLAN: Continue with transfer training and global strengthening for improved mobility. TREATMENT CODE/TIME: Session 1: 10 minutes; 88690 (10:20) Session 2: 23 minutes; [id number], [id number] (13:37)
--- NOTE | 2022-11-25 15:05 | W.NUTCONSULT ---
Date of service: 11/25/22 Time of Service: 15:05 Nutritional Consult ASSESSMENT: Cesario was admitted with urosepsis with sacral pressure wound, dysphagia and HTN. Puree diet with mildly thick liquids ordered, along with 1 oz liquid protein BID. PO intake has been <50% since admission. Estimated Needs: 2318 kcal (30 kcalx ADWkg), 100 g protein (ABW x 1.3gpro), 2300 ml fluid INTERVENTION: Continue with diet and liquid protein as ordered. Recommend MVI, 500 mg Vit C BID, 220 mg Zinc Sulfate x 14 days. If po intake does not improve, may benefit from appetite stimulant and or protein shakes MONITORING AND EVALUATION: weight, po intake, labs Time Spent in Nutritional Counseling and Treatment: 0
--- NOTE | 2022-11-25 18:04 | W.SURGCON ---
Date of service: 11/25/22 Time of Service: 18:04 Assessment and Plan Assessment and plan (1) Sacral decubitus ulcer: Status: Acute Assessment and plan: 77yo male with significant mobility issues secondary to Parkinsonism, admitted with urosepsis, and found to have sacro-ischial decubitus pressure injuty. No significant findings of necrotic or infected tissues. I did not find any devitalized areas that need sharp debridement at this time. --Agree with wound care recommendations of Santyl to punctate areas of eschar for chemical debridemnt, and heavy barrier cream to remaining areas with Mepilex cover --Careful routine rotation/off-loading (q2h) in bed from affected areas with special attention to avoid shearing --Nutritional support per Nutrition and Speech Therapy recommendations Pt discussed with wound care nurse, and Dr. Marquez, Hospitalist History of Present Illness History of Present Illness Chief Complaint: fever Narrative: Please note all of the following information has been obtained from the chart, as the patient is mostly nonverbal at baseline. This is a 77-yo male who [facility] with a report of fever, occluded indwelling Ribeiro catheter with purulence reported, and occasional cough. He previously resided at a SNF in [place] until recently. In the ED, he was found to be transiently hypotensive. He has PMH of Parkinson's disease, schizoaffective disorder, paroxysmal atrial fibrillation, HLD, HTN, CKD, anemia of chronic disease, BPH with urinary obstruction, chronic indwelling ribeiro catheter, and atopic dermatitis. Reportedly, he has been mostly wheelchair-bound for the past several months. Surgical consult called for evaluation of sacral/ischial decubitus ulcer. ? Consults Consult date: 11/25/22 Requesting physician: Danita Marquez Review of Systems Narrative: as above; information received from chart PFS All Active Problems (Updated 11/25/22 @ 12:11 by Peggy Burris) Oropharyngeal dysphagia (Acute) [place] (acute kidney injury) (Acute) Sacral decubitus ulcer (Acute) Indwelling Ribeiro catheter present (Acute) Advanced care planning/counseling discussion (Acute) Communication deficit (Acute) Unable to walk (Acute) 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) Palliative care patient (Acute) DVT prophylaxis (Acute) Discharge planning issues (Acute) Schizoaffective disorder (Acute) Sepsis (Acute) UTI (urinary tract infection) (Acute) Pneumonia (Acute) Medical History Atrial fibrillation BPH (benign prostatic hyperplasia) Chronic kidney disease HTN (hypertension) Hx of hyperlipidemia Parkinsons disease Social History Smoking/Tobacco Use Status: Never Smoking risk assessment performed?: Yes Substance use type: does not use Exam Const General: comfortable and disheveled Nutritional Appearance: average body habitus Orientation: alert and awake Limitations: physical limitations (somewhat contracted and has upper and lower extremity wekaness) Resp Effort & Inspection: normal respiratory effort, no grunting, not labored and no nasal flaring Auscultation: clear to auscultation bilaterally Cardio Rate: regular rate Rhythm: regular rhythm GI Palpation: soft, not firm, no guarding, not rigid and nontender Auscultation: normal bowel sounds Other: in-dwelling Ribeiro catheter with clear yellow urine Skin Wounds: wounds noted Other: mixed stage I and stage II bilateral ischial decubitus pressure injury with areas of excoriation, and small puctate areas of eschar without signs of deep tissue infection, extensive necrosis, or significant ischemia; wound is not foul-smelling and no purulence or cellulitis encountered. Left ischial tuberosity with changes that appear to be due to shearing and excoriation; Right ischial tuberosity with small area of hypertrophy that appears to have sheared--product specialist tunneling appreciatted when probed; wound measurements and pictures as per wound consult report Neuro General: patient alert and patient awake Cognition: abnormal cognition Results Last Vital Signs Temp 97.3 F L 11/25/22 15:32 Pulse 78 11/25/22 17:45 Resp 17 11/25/22 15:32 BP 128/74 11/25/22 17:45 Pulse Ox 97 11/25/22 15:32 Labs 11/25/22 12:09 11/25/22 06:35 Labs: Laboratory Results - last 24 hr 11/25/22 11/25/22 11/25/22 06:35 06:35 07:20 WBC 8.70 RBC 3.77 L Hgb 12.5 L D Hct 37.1 L MCV 98 H MCH 33.2 H MCHC 33.7 RDW 12.7 Plt Count 155 MPV 10.3 Immature Gran % 0.3 Neutrophils % 78.6 Lymphocytes % 9.7 Monocytes % 3.4 Eosinophils % 7.5 Basophils % 0.5 Nucleated RBC % 0.0 Absolute Neutrophils 6.84 H Absolute Lymphocytes 0.84 L Absolute Monocytes 0.30 Absolute Eosinophils 0.65 Absolute Basophils 0.04 VBG Lactate 0.8 Sodium 143 Potassium 4.2 Chloride 109 H Carbon Dioxide 26.3 Anion Gap 7.7 BUN 23 H Creatinine 1.4 H D Est GFR (CKD-EPI 2020) 52.41 Glucose 91 Calcium 9.0 Magnesium 2.1 C-Reactive Protein > 25.00 H 11/25/22 12:09 WBC RBC Hgb 12.7 L Hct 39.1 L MCV MCH MCHC RDW Plt Count MPV Immature Gran % Neutrophils % Lymphocytes % Monocytes % Eosinophils % Basophils % Nucleated RBC % Absolute Neutrophils Absolute Lymphocytes Absolute Monocytes Absolute Eosinophils Absolute Basophils VBG Lactate Sodium Potassium Chloride Carbon Dioxide Anion Gap BUN Creatinine Est GFR (CKD-EPI 2020) Glucose Calcium Magnesium C-Reactive Protein
--- NOTE | 2022-11-25 19:02 | CHAPLAIN ---
Cesario was transferred out of the ICU today. He is was up in the chair when I visit, watching tv. Cesario is from [facility], he has parkinson's and is non verbal except for one work answers. I introduced myself and explained my role, asked if I could get him anything or if he needed anything and he said no. He had the hiccups continually.
[2022-11-25] MEDS: Simvastatin 20 MG TAB PO (20:44)
[2022-11-25] MEDS: Protein Nutritional Supplement 16 GM 1 OUNCE PACKET PO (20:44)
[2022-11-25] MEDS: Triamcinolone 0.1% CR 15 GM TUBE TP (20:45)
[2022-11-25] MEDS: OLANZapine 5 MG TAB PO (22:01)
[2022-11-26 03:08] VITALS: BP 138/89; PULSE 75; RESP 17; TEMP 37; O2SAT 96
[2022-11-26] MEDS: dilTIAZem 30 MG TAB PO ×4 (03:09→22:25)
[2022-11-26] MEDS: Heparin 5,000 UNITS/ML VIAL 5000 UNITS SC ×2 (03:09→11:16)
[2022-11-26] MEDS: Normal Saline Flush 10 ML SYR IVP ×2 (05:17→23:13)
[2022-11-26] MEDS: PIPERACILLIN/TAZO 3.375 GM in Normal Saline 50 ML IVPB ×4 (05:17→23:13)
[2022-11-26 06:50] LABS: Abs Immature Grans 0.01 10^3/uL (0.0-0.06); Absolute Basophil Count 0.03 10^3/uL (0.0-0.2); Absolute Eosinophil Count 0.43 10^3/uL (0.0-0.7); Absolute Lymphocyte Count 0.79 10^3/uL (1.2-3.4); Absolute Monocyte Count 0.35 10^3/uL (0.1-0.8); Absolute Neutrophil Count 3.07 10^3/uL (1.2-6.7); Basophils % 0.6; Eosinophils % 9.2; HCT 34.5 % (40.0-50.0); HGB 11.7 g/dL (13.5-17.5); Immature Grans % 0.2; Lymphocytes % 16.9; MCH 32.8 pg (27.0-33.0); MCHC 33.9 % (32.0-36.0); MCV 97 fL (80-95); MPV 10.4 fL (8.0-11.0); Monocytes % 7.5; Neutrophils % 65.6; Platelet Count 154 10^3/uL (130-400); RBC 3.57 10^6/uL (4.36-5.78); RDW 12.3 % (11.8-14.1); RDW-SD 44.2 fL; WBC 4.68 10^3/uL (4.4-10.8)
[2022-11-26 07:39] VITALS: BP 123/74; PULSE 74; RESP 17; TEMP 36.9; O2SAT 94
[2022-11-26 07:40] LABS: Folate 5.5 ng/mL (8.6-20.0); Vitamin B12 210 pg/mL (193-986)
[2022-11-26 08:07] LABS: Anion Gap 11.6 mmol/L (3-11); BUN 17 mg/dL (7-18); CO2 23.4 mmol/L (21.0-32.0); CREATININE 0.9 mg/dL (0.70-1.30); Calcium 8.7 mg/dL (8.5-10.1); Chloride 109 mmol/L (98-107); Estimated GFR 89.07 (mL/min/1.73m2); Ferritin 152 ng/mL (26-388); Glucose 88 mg/dL (74-106); Magnesium 1.7 mg/dL (1.8-2.4); Potassium 3.8 mmol/L (3.5-5.1); Sodium 144 mmol/L (136-145)
[2022-11-26 08:15] LABS: Procalcitonin 0.1 ng/mL
[2022-11-26 08:16] LABS: C-Reactive Protein 12.19 mg/dL (0.0-0.3)
[2022-11-26 08:23] LABS: Iron 40 ug/dL (65-175); Total Iron Binding Capacity 187 ug/dL (250-450); Transferrin Sat 21 % (20-55)
[2022-11-26] MEDS: Protein Nutritional Supplement 16 GM 1 OUNCE PACKET PO ×2 (08:24→22:26)
[2022-11-26] MEDS: Aspirin 81 MG CHEW PO (08:25)
[2022-11-26] MEDS: Carbidopa 25/Levodopa 100 TAB PO ×4 (08:25→22:25)
[2022-11-26] MEDS: Benztropine 1 MG TAB PO (08:25)
[2022-11-26] MEDS: Cyanocobalamin 500 MCG TAB 1000 MCG PO (09:18)
[2022-11-26] MEDS: Folic Acid 1 MG TAB PO (09:18)
[2022-11-26] MEDS: Triamcinolone 0.1% CR 15 GM TUBE TP ×2 (09:19→22:25)
[2022-11-26 11:07] VITALS: BP 109/71; PULSE 77; RESP 18; TEMP 36.8; O2SAT 95
[2022-11-26] MEDS: Cyanocobalamin 1000 MCG/ML VIAL IM/SC (11:16)
--- NOTE | 2022-11-26 14:50 | PT.INTREAT ---
Date of service: 11/26/22 Time of Service: 10:40 PT Notes Visit Reasons: UTI,Sepsis Inpatient Physical Therapy Treatment Note [facility] Date: 11/26/2022 PRECAUTIONS: Activity as tolerated SUBJECTIVE: Cesario is pleasant and agreeable to participating in PT.? Patient is limited in verbal communications, but he is able to answer questions with yes or no appropriately, as well as write that he is alright on communication board once in chair. OBJECTIVE: ? PAIN: No c/o pain ? BED MOBILITY/TRANSFERS? Supine-sit: Min A Sit-stand: CGA x2 with use of STEDY ? Stand-sit: CGA with use of STEDY Bed-chair: STEDY with SBA? ? ? Did assist nursing with transfer back to bed with STEDY lift after lunch. ? GAIT: Not assessed ? THEREX: Patient was instructed in a LE strengthening program, this was completed in a supine position to include: ankle pumps, quad sets, glute sets, hip abduction and hip/ knee flexion for 10 reps x 2 sets. Also, performed standing exercises (in STEDY) which included weight shifting and modified [id number] for 10 reps each. ASSESSMENT:? Patient was able to tolerate each of these activities well today. Did cup heels to protect them from friction with bed exercises. PLAN: Continue with transfer training and global strengthening for improved mobility. TREATMENT CODE/TIME: Ther Activity ([id number]) Ther exercises ([id number]), 10:40 to 11:05
[2022-11-26 15:29] VITALS: BP 152/89; PULSE 75; RESP 18; TEMP 37; O2SAT 96
--- NOTE | 2022-11-26 16:47 | PGE_ITS ---
Date of Service Date of service: 11/26/22 Time of Service: 16:48 Assessment and Plan Assessment and plan (1) Sepsis: Status: Acute Assessment and plan: Due to a UTI associated with an indwelling ribeiro catheter, present on admission. Blood cx negative at 48 hrs. Urine C&S with proteus 10,000-50,000 CFU (Clinically had a UTI). Cr better. US renal w/o obstructive uropathy/stones. Ribeiro exchanged at [facility] the day of presentation. Continue empiric zosyn. Await sensitivities. DNI per palliative care family meeting. Qualifiers: Sepsis type: sepsis due to unspecified organism Sepsis acute organ dysfunction status: with acute organ dysfunction Severe sepsis acute organ dysfunction type: acute renal failure Acute renal failure type: unspecified Severe sepsis shock status: without septic shock Qualified Code(s): A41.9 - Sepsis, unspecified organism; R65.20 - Severe sepsis without septic shock; N17.9 - Acute kidney failure, unspecified (2) UTI (urinary tract infection): Status: Acute Assessment and plan: As above (3) [place] (acute kidney injury): Status: Acute Assessment and plan: Improved. No role for IVF at this time; however, diminished PO intake due to dysphagia. Speech consulted. May have to give small boluses of IVF. (4) Atrial fibrillation: Assessment and plan: Paroxysmal afib. Currently in NSR. Hold outpatient diltiazem 120 mg PO daily. Continue short acting diltiazem 30 mg PO q6hrs with holding parameters. Plan to resume long acting cardizem tomorrow. Not on anticoagulation as outpatient. Palliative care to establish goals of care. Family open to idea of anticoagulation. Surgery is not planning on a surgical intervention on the decubitous wounds, so we could start anticoagulation on this admission. CHADSVASC score is 3. (5) BPH (benign prostatic hyperplasia): Assessment and plan: H/o chronic indwelling ribeiro. Will need urology f/u for consideration of a suprapubic catheter. Last changed 11/24/22 at [facility] immediately prior to coming to [facility]. (6) HTN (hypertension): Assessment and plan: Continue holding parameters on diltiazem, as above (7) Parkinsons disease: Assessment and plan: Continue current Parkinsons meds. PT, OT, speech for a swallow eval consulted. (8) Schizoaffective disorder: Status: Acute Assessment and plan: Continue olanzapine. (9) Sacral decubitus ulcer: Status: Acute Assessment and plan: Continue wound care. Evaluated by general surgery - no surgical intervention deemed necessary at this time. (10) Discharge planning issues: Status: Acute Assessment and plan: Full code Palliative code on board: DNI. PT, OT, speech consulted. Continues to require hospitalization. (11) DVT prophylaxis: Status: Acute Assessment and plan: Start therapeutic eliquis (Afib). D/c heparin. Subjective Subjective Interval history since last seen: Cesario states he is uncomfortable in a position he is in and his nursing was notified and was about to sit him up. He denies dizziness, chest pain, shortness of breath, nausea, pain anywhere. Exam Narrative Exam Narrative: General: male who is awake, A&Ox1, follows commands, answers questions yes/no, does look uncomfortable in bed HEENT: EOMI, MMM Heart: regularly regular rhythm, no m/r/g Lungs: CTAB/diminished breath sounds B Abdomen: soft, nontender, nondistended : has a ribeiro: yellow urine draining Extremities: no edema BLEs Objective Last Vital Signs Temp 37.0 C 11/26/22 15:29 Pulse 75 11/26/22 15:29 Resp 18 11/26/22 15:29 BP 152/89 H 11/26/22 15:29 Pulse Ox 96 11/26/22 15:29 Laboratory Results - last 24 hr 11/26/22 11/26/22 11/26/22 06:30 06:30 06:30 WBC 4.68 RBC 3.57 L Hgb 11.7 L Hct 34.5 L MCV 97 H MCH 32.8 MCHC 33.9 RDW 12.3 Plt Count 154 MPV 10.4 Immature Gran % 0.2 Neutrophils % 65.6 Lymphocytes % 16.9 Monocytes % 7.5 Eosinophils % 9.2 Basophils % 0.6 Nucleated RBC % 0.0 Absolute Neutrophils 3.07 Absolute Lymphocytes 0.79 L Absolute Monocytes 0.35 Absolute Eosinophils 0.43 Absolute Basophils 0.03 Sodium 144 Potassium 3.8 Chloride 109 H Carbon Dioxide 23.4 Anion Gap 11.6 H BUN 17 Creatinine 0.9 Est GFR (CKD-EPI 2021) 89.07 Glucose 88 Calcium 8.7 Magnesium 1.7 L Iron TIBC Transferrin % Sat Ferritin 152 C-Reactive Protein 12.19 H Vitamin B12 Folate Procalcitonin 0.1 11/26/22 11/26/22 06:30 06:30 WBC RBC Hgb Hct MCV MCH MCHC RDW Plt Count MPV Immature Gran % Neutrophils % Lymphocytes % Monocytes % Eosinophils % Basophils % Nucleated RBC % Absolute Neutrophils Absolute Lymphocytes Absolute Monocytes Absolute Eosinophils Absolute Basophils Sodium Potassium Chloride Carbon Dioxide Anion Gap BUN Creatinine Est GFR (CKD-EPI 2020) Glucose Calcium Magnesium Iron 40 L TIBC 187 L Transferrin % Sat 21 Ferritin C-Reactive Protein Vitamin B12 210 Folate 5.5 L Procalcitonin Time Spent with Patient Time Spent with Patient: 25-34 minutes Time was spent: preparing to see the patient(eg.review tests), obtaining and/or reviewing separately otained hiistory, ordering medications,tests, procedures, referring, communicating with other health team primary care physician, indepentently interpreting results, counseling the patient and care coordination
[2022-11-26 19:20] VITALS: BP 110/72; PULSE 75; RESP 20; TEMP 37.1; O2SAT 97
[2022-11-26 22:23] VITALS: BP 155/100; PULSE 68; RESP 18; TEMP 36.9; O2SAT 95
[2022-11-26] MEDS: Apixaban 5 MG TAB PO (22:24)
[2022-11-26] MEDS: OLANZapine 5 MG TAB PO (22:24)
[2022-11-26] MEDS: Simvastatin 20 MG TAB PO (22:24)
[2022-11-26] MEDS: Normal Saline 500 ML 30 ML IV (23:14)
[2022-11-27 03:14] VITALS: BP 127/78; PULSE 68; RESP 18; TEMP 36.6; O2SAT 96
[2022-11-27] MEDS: PIPERACILLIN/TAZO 3.375 GM in Normal Saline 50 ML IVPB ×4 (05:12→23:11)
[2022-11-27 06:50] LABS: Abs Immature Grans 0.02 10^3/uL (0.0-0.06); Absolute Basophil Count 0.04 10^3/uL (0.0-0.2); Absolute Eosinophil Count 0.32 10^3/uL (0.0-0.7); Absolute Lymphocyte Count 1.06 10^3/uL (1.2-3.4); Absolute Monocyte Count 0.39 10^3/uL (0.1-0.8); Absolute Neutrophil Count 1.88 10^3/uL (1.2-6.7); Basophils % 1.1; Eosinophils % 8.6; HCT 35.6 % (40.0-50.0); HGB 11.7 g/dL (13.5-17.5); Immature Grans % 0.5; Lymphocytes % 28.6; MCH 32.1 pg (27.0-33.0); MCHC 32.9 % (32.0-36.0); MCV 98 fL (80-95); MPV 10.3 fL (8.0-11.0); Monocytes % 10.5; Neutrophils % 50.7; Platelet Count 183 10^3/uL (130-400); RBC 3.65 10^6/uL (4.36-5.78); RDW-SD 43.4 fL; WBC 3.71 10^3/uL (4.4-10.8)
[2022-11-27 07:13] LABS: Anion Gap 10.8 mmol/L (3-11); BUN 11 mg/dL (7-18); C-Reactive Protein 6.41 mg/dL (0.0-0.3); CO2 25.2 mmol/L (21.0-32.0); CREATININE 0.9 mg/dL (0.70-1.30); Chloride 109 mmol/L (98-107); Estimated GFR 89.07 (mL/min/1.73m2); Glucose 85 mg/dL (74-106); Magnesium 1.7 mg/dL (1.8-2.4); Potassium 3.4 mmol/L (3.5-5.1); Sodium 145 mmol/L (136-145)
[2022-11-27 07:54] VITALS: BP 137/83; PULSE 82; RESP 18; TEMP 37.1; O2SAT 94
[2022-11-27] MEDS: Apixaban 5 MG TAB PO ×2 (08:12→20:03)
[2022-11-27] MEDS: Carbidopa 25/Levodopa 100 TAB PO ×4 (08:13→20:03)
[2022-11-27] MEDS: Cyanocobalamin 500 MCG TAB 1000 MCG PO (08:13)
[2022-11-27] MEDS: Folic Acid 1 MG TAB PO (08:13)
[2022-11-27] MEDS: Protein Nutritional Supplement 16 GM 1 OUNCE PACKET PO ×2 (08:14→20:03)
[2022-11-27] MEDS: Polyethylene Glycol 3350 17 GM PACKET PO (08:14)
[2022-11-27] MEDS: Benztropine 1 MG TAB PO (08:14)
[2022-11-27] MEDS: dilTIAZem CD 120 MG CAPCR PO (08:14)
[2022-11-27] MEDS: Aspirin 81 MG CHEW PO (08:14)
[2022-11-27] MEDS: Triamcinolone 0.1% CR 15 GM TUBE TP ×2 (08:37→20:03)
[2022-11-27] MEDS: Magnesium Chloride 64 MG TABCR PO (08:37)
[2022-11-27] MEDS: Potassium Chloride Liquid 20 MEQ PKT 40 MEQ PO (08:38)
[2022-11-27] MEDS: MAGNESIUM SULFATE 2 GM/50 ML BAG IVPB (08:44)
[2022-11-27] MEDS: Zinc Sulfate 220 MG TAB PO (10:01)
[2022-11-27] MEDS: Ascorbic Acid 500 MG TAB PO ×2 (10:02→20:03)
[2022-11-27] MEDS: Multivitamin w/Minerals TAB 1 TAB PO (10:02)
[2022-11-27 12:14] VITALS: BP 148/90; PULSE 78; RESP 20; TEMP 37.1; O2SAT 98
--- NOTE | 2022-11-27 12:23 | PT.INTREAT ---
Date of service: 11/27/22 Time of Service: 11:40 PT Notes Visit Reasons: UTI,Sepsis Inpatient Physical Therapy Treatment Note [facility] Date: 11/27/2022 PRECAUTIONS: Activity as tolerated SUBJECTIVE: Cesario is pleasant and agreeable to participating in PT.? Patient is limited in verbal communications, but he is able to answer questions with yes or no appropriately. OBJECTIVE: ? PAIN: No c/o pain ? BED MOBILITY/TRANSFERS? Supine-sit: Mod A Sit-stand: CGA x2 with use of STEDY ? Stand-sit: CGA with use of STEDY Bed-chair: STEDY with SBA? THER EX: Skilled instruction given for LE strengthening program, this was completed in reclined position to include: ankle pumps, quad sets, glute sets, hip abduction and hip/ knee flexion for 10 reps x 2 sets. Performed standing exercises (in STEDY) which included weight shifting and modified [id number] for 10 reps each. ASSESSMENT:? Patient was able to tolerate each of these activities well today. Did cup heels to protect them from friction with recliner/bed exercises. PLAN: Continue with transfer training and global strengthening for improved mobility. TREATMENT CODE/TIME: Ther Activity ([id number]) Ther exercises ([id number]), 11:40 to 12:05
[2022-11-27 12:47] LABS: Source Nasal/Nares
[2022-11-27 13:25] LABS: COVID-19 PCR Negative (Negative)
[2022-11-27 15:07] VITALS: BP 130/83; PULSE 72; RESP 17; TEMP 36.8; O2SAT 96
--- NOTE | 2022-11-27 15:30 | W.PM.PROGNOT ---
Date of Service Date of service: 11/27/22 Time of Service: 12:46 Assessment and Plan Assessment and plan (1) Sacral decubitus ulcer: Status: Acute Assessment and plan: 77yo male with significant mobility issues secondary to Parkinsonism, admitted with urosepsis, and found to have sacro-ischial decubitus pressure injury. No significant findings of necrotic or infected tissues. I did not find any devitalized areas that need sharp debridement at this time. --Agree with wound care recommendations of Santyl to punctate areas of eschar for chemical debridemnt, and heavy barrier cream to remaining areas with Mepilex cover --Careful routine rotation/off-loading (q2h) in bed from affected areas with special attention to avoid shearing --Robust nutritional support Pt discussed with Dr. Marquez, Hospitalist Subjective Subjective Interval history since last seen: Nursing reports attempts to off-load the patient from [id number] while in bed, but he prefers to be supine. Also, decreased drainage from the affected pressure wound area today. Exam Const General: comfortable Nutritional Appearance: average body habitus Orientation: alert and awake Limitations: physical limitations (somewhat contracted and has upper and lower extremity wekaness) Resp Effort & Inspection: normal respiratory effort, no grunting, not labored and no nasal flaring Cardio Rate: regular rate Rhythm: regular rhythm GI Palpation: soft, not firm, no guarding, not rigid and nontender Auscultation: normal bowel sounds Other: in-dwelling Wilkerson catheter with clear yellow urine Skin Wounds: wounds noted Other: mixed stage I and stage II bilateral ischial decubitus pressure injury with areas of excoriation. Small puctate areas of eschar improved. No signs of deep tissue infection, extensive necrosis, cellulitus,or significant ischemia; wound is not foul-smelling and no purulence or cellulitis encountered. No devitatlized tissue encountered. Left ischial tuberosity with changes that appear to be due to shearing and excoriation; Right ischial tuberosity with small area of hypertrophy that appears to have sheared--no tunneling appreciatted when probed; wound measurements and pictures as per wound consult report Neuro General: patient alert and patient awake Cognition: abnormal cognition Objective Last Vital Signs Temp 98.8 F 11/27/22 12:14 Pulse 78 11/27/22 12:14 Resp 20 11/27/22 12:14 BP 148/90 H 11/27/22 12:14 Pulse Ox 98 11/27/22 12:14 Laboratory Results - last 24 hr 11/27/22 11/27/22 11/27/22 06:18 06:18 12:35 WBC 3.71 L RBC 3.65 L Hgb 11.7 L Hct 35.6 L MCV 98 H MCH 32.1 MCHC 32.9 RDW 12.0 Plt Count 183 MPV 10.3 Immature Gran % 0.5 Neutrophils % 50.7 Lymphocytes % 28.6 Monocytes % 10.5 Eosinophils % 8.6 Basophils % 1.1 Nucleated RBC % 0.0 Absolute Neutrophils 1.88 Absolute Lymphocytes 1.06 L Absolute Monocytes 0.39 Absolute Eosinophils 0.32 Absolute Basophils 0.04 Sodium 145 Potassium 3.4 L Chloride 109 H Carbon Dioxide 25.2 Anion Gap 10.8 BUN 11 Creatinine 0.9 Est GFR (CKD-EPI 2020) 89.07 Glucose 85 Calcium 9.0 Magnesium 1.7 L C-Reactive Protein 6.41 H COVID-19 Source Nasal/Nares SARS-CoV-2 (PCR) Negative Time Spent with Patient Time Spent with Patient: <25 minutes Time was spent: preparing to see the patient(eg.review tests), obtaining and/or reviewing separately otained hiistory, referring, communicating with other health career center director and indepentently interpreting results
--- NOTE | 2022-11-27 15:49 | W.PM.PROGNOT ---
Date of Service Date of service: 11/27/22 Time of Service: 15:49 Assessment and Plan Assessment and plan (1) Sepsis: Status: Acute Assessment and plan: Due to a UTI associated with an indwelling ribeiro catheter, present on admission. Blood cx negative at 48 hrs. Urine C&S with proteus 10,000-50,000 CFU (Clinically had a UTI). Cr better. US renal w/o obstructive uropathy/stones. Ribeiro exchanged at [facility] the day of presentation. Keep zosyn going for now given that we are also covering a possible aspiration pneumonia. DNI per palliative care family meeting. Qualifiers: Sepsis type: sepsis due to unspecified organism Sepsis acute organ dysfunction status: with acute organ dysfunction Severe sepsis acute organ dysfunction type: acute renal failure Acute renal failure type: unspecified Severe sepsis shock status: without septic shock Qualified Code(s): A41.9 - Sepsis, unspecified organism; R65.20 - Severe sepsis without septic shock; N17.9 - Acute kidney failure, unspecified (2) UTI (urinary tract infection): Status: Acute Assessment and plan: As above (3) [place] (acute kidney injury): Status: Acute Assessment and plan: Resolved. No role for IVF at this time. Encourage PO hydration. Has a modified diet ordered. (4) Atrial fibrillation: Assessment and plan: Paroxysmal afib, rate controlled currently. Long acting cardizem resumed this morning, and started on anticoagulation with eliquis. CHADSVASC score is 3. (5) BPH (benign prostatic hyperplasia): Assessment and plan: H/o chronic indwelling ribeiro. Will need urology f/u for consideration of a suprapubic catheter. Last changed 11/24/22 at [facility] immediately prior to coming to [facility]. (6) HTN (hypertension): Assessment and plan: Continue holding parameters on diltiazem, as above (7) Parkinsons disease: Assessment and plan: Continue current Parkinsons meds. PT, OT, speech for a swallow eval consulted. (8) Schizoaffective disorder: Status: Acute Assessment and plan: Continue olanzapine. (9) Sacral decubitus ulcer: Status: Acute Assessment and plan: Continue wound care. Evaluated by general surgery - no surgical intervention deemed necessary at this time. (10) Discharge planning issues: Status: Acute Assessment and plan: Full code Palliative code on board: DNI. PT, OT, speech consulted. Anticipate discharge back to SNF tomorrow. (11) DVT prophylaxis: Status: Acute Assessment and plan: Therapeutic eliquis (Afib). Subjective Subjective Interval history since last seen: Cesario denies dizziness, chest pain, shortness of breath, nausea, any kind of discomfort or pain. Nursing have noted waxing and waning in his swallowing. Exam Narrative Exam Narrative: General: male who is awake, A&Ox1, follows commands, answers questions yes/no, comfortable HEENT: EOMI, MMM Heart: irregularly irregular rhythm, no m/r/g Lungs: CTAB/diminished breath sounds B Abdomen: soft, nontender, nondistended : has a ribeiro: yellow urine draining Extremities: no edema BLEs Objective Last Vital Signs Temp 37.1 C 11/27/22 12:14 Pulse 78 11/27/22 12:14 Resp 20 11/27/22 12:14 BP 148/90 H 11/27/22 12:14 Pulse Ox 98 11/27/22 12:14 Laboratory Results - last 24 hr 11/27/22 11/27/22 11/27/22 06:18 06:18 12:35 WBC 3.71 L RBC 3.65 L Hgb 11.7 L Hct 35.6 L MCV 98 H MCH 32.1 MCHC 32.9 RDW 12.0 Plt Count 183 MPV 10.3 Immature Gran % 0.5 Neutrophils % 50.7 Lymphocytes % 28.6 Monocytes % 10.5 Eosinophils % 8.6 Basophils % 1.1 Nucleated RBC % 0.0 Absolute Neutrophils 1.88 Absolute Lymphocytes 1.06 L Absolute Monocytes 0.39 Absolute Eosinophils 0.32 Absolute Basophils 0.04 Sodium 145 Potassium 3.4 L Chloride 109 H Carbon Dioxide 25.2 Anion Gap 10.8 BUN 11 Creatinine 0.9 Est GFR (CKD-EPI 2020) 89.07 Glucose 85 Calcium 9.0 Magnesium 1.7 L C-Reactive Protein 6.41 H COVID-19 Source Nasal/Nares SARS-CoV-2 (PCR) Negative Time Spent with Patient Time Spent with Patient: 25-34 minutes Time was spent: preparing to see the patient(eg.review tests), obtaining and/or reviewing separately otained hiistory, ordering medications,tests, procedures, referring, communicating with other health primary care provider, indepentently interpreting results, counseling the patient and care coordination
--- NOTE | 2022-11-27 19:06 | NUR.NOTE ---
Nursing Note:called [facility] multiple times 11/27/22 asking for med rec to be faxed here. please fax it to [phone] [facility] [place] thansk
[2022-11-27 19:14] VITALS: BP 116/67; PULSE 62; RESP 17; TEMP 36.5; O2SAT 96
[2022-11-27] MEDS: Simvastatin 20 MG TAB PO (20:03)
[2022-11-27] MEDS: OLANZapine 5 MG TAB PO (21:51)
[2022-11-27] MEDS: Normal Saline Flush 10 ML SYR IVP ×2 (23:12→23:40)
[2022-11-27 23:13] VITALS: BP 123/77; PULSE 47; RESP 18; TEMP 36.5; O2SAT 96
[2022-11-28 04:03] VITALS: BP 132/78; PULSE 62; RESP 18; TEMP 36.6; O2SAT 95
--- NOTE | 2022-11-28 05:47 | TELEP.MEDR_ITS ---
Date of service: 11/28/22 Time of Service: 05:47 Telepharmacy Home Med Rec Allergies Allergies: No Known Allergies Allergy (Verified 11/06/18 16:28) Interview Person Interviewed: * Med List from [facility] Quality Quality of Interview/Accuracy of Medication List: Good Sources Sources used to compile medication list: [employer] Medication List, SureScripts and Other Changes made to Home Medication List: ADDITIONS: * None DELETIONS: * Removed duplicates from med list CHANGES: * Olanzapine 5mg po HS Additional Notes Additional Notes: * Updated medication list with information from med list from previous facility. No last doses documented on provided medication list. Recommended Changes Recommended Changes(reason for recommendation): * None Attestation: The home medication list is now updated to the best of my knowledge and is ready to be reconciled by the provider. Please contact the TelePharmacy Medication Reconciliation Pharmacist at for any questions.
--- NOTE | 2022-11-28 05:47 | TELEP.MEDREC ---
Date of service: 11/28/22 Time of Service: 05:47 Telepharmacy Home Med Rec Allergies Allergies: No Known Allergies Allergy (Verified 11/06/18 16:28) Interview Person Interviewed: Med List from [facility] Quality Quality of Interview/Accuracy of Medication List: Good Sources Sources used to compile medication list: [employer] Medication List, SureScripts and Other Changes made to Home Medication List: ADDITIONS: None DELETIONS: Removed duplicates from med list CHANGES: Olanzapine 5mg po HS Additional Notes Additional Notes: Updated medication list with information from med list from previous facility. No last doses documented on provided medication list. Recommended Changes Recommended Changes(reason for recommendation): None Attestation: The home medication list is now updated to the best of my knowledge and is ready to be reconciled by the provider. Please contact the TelePharmacy Medication Reconciliation Pharmacist at for any questions.
[2022-11-28] MEDS: PIPERACILLIN/TAZO 3.375 GM in Normal Saline 50 ML IVPB (05:48)
[2022-11-28] MEDS: Normal Saline Flush 10 ML SYR IVP ×2 (05:49→08:34)
[2022-11-28 07:13] LABS: Abs Immature Grans 0.02 10^3/uL (0.0-0.06); Absolute Basophil Count 0.05 10^3/uL (0.0-0.2); Absolute Eosinophil Count 0.33 10^3/uL (0.0-0.7); Absolute Lymphocyte Count 0.94 10^3/uL (1.2-3.4); Absolute Monocyte Count 0.49 10^3/uL (0.1-0.8); Absolute Neutrophil Count 1.83 10^3/uL (1.2-6.7); Basophils % 1.4; HCT 38.4 % (40.0-50.0); Immature Grans % 0.5; Lymphocytes % 25.7; MCH 32.7 pg (27.0-33.0); MCHC 33.9 % (32.0-36.0); MCV 97 fL (80-95); Monocytes % 13.4; RBC 3.97 10^6/uL (4.36-5.78); RDW 11.9 % (11.8-14.1); RDW-SD 42.8 fL; WBC 3.66 10^3/uL (4.4-10.8)
[2022-11-28 07:25] VITALS: BP 147/98; PULSE 64; RESP 18; TEMP 36.9; O2SAT 97
[2022-11-28 07:32] LABS: Diff Comment Diff Reviewed; RBC Morphology Normal
[2022-11-28 07:37] LABS: Anion Gap 9.8 mmol/L (3-11); BUN 12 mg/dL (7-18); C-Reactive Protein 3.99 mg/dL (0.0-0.3); CO2 24.2 mmol/L (21.0-32.0); Calcium 9.2 mg/dL (8.5-10.1); Chloride 107 mmol/L (98-107); Estimated GFR 78.49 (mL/min/1.73m2); Glucose 88 mg/dL (74-106); Magnesium 1.9 mg/dL (1.8-2.4); Potassium 3.8 mmol/L (3.5-5.1); Sodium 141 mmol/L (136-145)
[2022-11-28] MEDS: Apixaban 5 MG TAB PO (08:30)
[2022-11-28] MEDS: Carbidopa 25/Levodopa 100 TAB PO (08:31)
[2022-11-28] MEDS: Benztropine 1 MG TAB PO (08:31)
[2022-11-28] MEDS: Aspirin 81 MG CHEW PO (08:31)
[2022-11-28] MEDS: Ascorbic Acid 500 MG TAB PO (08:31)
[2022-11-28] MEDS: Cyanocobalamin 500 MCG TAB 1000 MCG PO (08:32)
[2022-11-28] MEDS: dilTIAZem CD 120 MG CAPCR PO (08:32)
[2022-11-28] MEDS: Folic Acid 1 MG TAB PO (08:32)
[2022-11-28] MEDS: Protein Nutritional Supplement 16 GM 1 OUNCE PACKET PO (08:33)
[2022-11-28] MEDS: Magnesium Chloride 64 MG TABCR PO (08:33)
[2022-11-28] MEDS: Polyethylene Glycol 3350 17 GM PACKET PO (08:33)
[2022-11-28] MEDS: Triamcinolone 0.1% CR 15 GM TUBE TP (08:34)
[2022-11-28] MEDS: Zinc Sulfate 220 MG TAB PO (08:34)
--- NOTE | 2022-11-28 09:38 | DSE_ITS ---
Date of service: 11/28/22 Time of Service: 09:38 DS: Diagnosis Discharge Diagnosis (1) Sepsis: Status: Acute (2) UTI (urinary tract infection): Status: Acute (3) [place] (acute kidney injury): Status: Acute (4) Atrial fibrillation: (5) BPH (benign prostatic hyperplasia): (6) HTN (hypertension): (7) Parkinsons disease: (8) Schizoaffective disorder: Status: Acute (9) Sacral decubitus ulcer: Status: Acute (10) Oropharyngeal dysphagia: Status: Acute (11) B12 deficiency: Status: Acute (12) Folate deficiency: Status: Acute Discharge Plan Disposition Patient Disposition: Half-Way Facility(SNF) Condition: Improving Discharge Details Reason For Visit: UTI,Sepsis Admit Date/Time: 11/24/22 06:26 Admit Provider: Pasquale Gardner Attending Provider: Pasquale Gardner Primary Care Provider: Henrik Mukherjee Hospital Course Hospital Course: Mr Moralez is a 77 year old male with PMHx of indwelling ribeiro catheter (?indication), as well as h/o Afib, not previously on anticoagulation, Schizoaffective disorder, 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 The ribeiro catheter was changed at the nursing facility immediately prior to the patient coming to the hospital. He was initiated on IV antibiotics (vancomycin/zosyn empirically) and IVF. While he was initially hypotensive, he did not require vasopressors, responding to above interventions, and was able to be downgraded to medical surgical status on 11/25/22. He had negative blood cultures; his urine culture grew proteus mirabilis, which was sensitive to zosyn. The patient still has an elevated, though improving, CRP and is being discharged to SNF today with 5 more days of augmentin. We are changing his ribeiro catheter again prior to his discharge to minimize risks of biofilm from UTI. Additionally, the patient was found to be having worsening symptoms of dysphagia, though clinically he did not have aspiration pneumonia. He also was found to have decubitus wounds on his sacrum and B ischial tuberocities. He was evaluated by both speech therapy and would care as well as surgery, and their recommendations are included below. He will need ongoing follow up for this as outpatient. Palliative care has also been involved in this case. The patient was made DNI. He would benefit from continued follow up with palliative care as well. As a result of the palliative care consult, it was decided to start the patient on anticoagulation for his Afib, so he was started on eliquis. He is medically stable for [facility]. Care for patient as well as completion of his discharge summary today took 45 minutes. Home Meds and New Rx's Prescriptions: New cyanocobalamin (vitamin B-12) [Vitamin B-12] 500 mcg Tablet 1,000 mcg PO DAILY Qty: 0 0RF ascorbic acid (vitamin C) [Vitamin C] 500 mg Tablet 500 mg PO BID Qty: 0 0RF folic acid 1 mg Tablet 1 mg PO DAILY Qty: 0 0RF Mag 64 64 mg Tablet,Delayed Release (Dr/Ec) 64 mg PO DAILY Qty: 0 0RF Eliquis 5 mg Tablet 5 mg PO BID Qty: 0 0RF One Daily Multi-Vit w-Mineral 4.5 mg iron Tablet 1 tab PO DAILY@1000 Qty: 0 0RF zinc sulfate [Zinc-220] 50 mg zinc (220 mg) Capsule 220 mg PO DAILY Qty: 12 0RF Phlexy-Vits 15 mg- 700 mcg Powder In Packet 1 oz PO BID Qty: 0 0RF amoxicillin-pot clavulanate 875-125 mg tablet 1 tab PO Q12H Qty: 10 0RF Continued polyethylene glycol 3350 [Miralax] 17 gram/dose powder 17 gm PO DAILY simvastatin 20 mg tablet 20 mg PO QPM entacapone [Comtan] 200 mg tablet 200 mg PO TID olanzapine 5 mg tablet 5 mg PO HS miconazole nitrate 2 % Cream 1 applic TOPICAL Q12H PRN triamcinolone acetonide 0.1 % Cream 1 applic TOPICAL BID Rx Instructions: APPLY TWICE A DAY TO CALVES FOR DRYNESS magnesium hydroxide [Milk of Magnesia] 400 mg/5 mL Suspension 30 ml PO QHS PRN Fleet Enema 19-7 gram/118 mL Enema [address] ONCE acetaminophen 325 mg Tablet 650 mg PO 6XD PRN (Reason: Fever) amantadine HCl 100 mg tablet 100 mg PO TID aspirin 81 mg Tablet,Chewable 81 mg PO DAILY benztropine 1 mg tablet 1 mg PO DAILY carbidopa-levodopa 25-100 mg tablet 2 tab PO 4XD diltiazem HCl 120 mg Capsule,Extended Release 12 Hr 120 mg PO DAILY bisacodyl [Dulcolax (bisacodyl)] 10 mg Suppository [address] DAILY PRN (Reason: IF NO RESULT FROM mom OR MIRALAX) Discharge Instructions Instructions: Amoxicillin/Clavulanate Potassium (By mouth), Catheter-associated Urinary Tract Infection (DC) Additional Instructions: Finish antibiotics as prescribed. Return to the hospital with any fever, bleeding, chest pain, or shortness of breath. Follow up with urology. Ensure wound care and speech therapy follow up at the nursing facility. Follow up with palliative care. Speech therapy recommendations: nectar thick liquids by cup only (no straws), pureed solids, meds crushed in puree. Patient should have 1:1 supervision to allow for cueing/initiation of pharyngeal swallow between bites and to monitor rate of intake when patient is self-feeding. Patient may have sips and chips (small ice chips one at a time and thin water by spoon) between meals and after thorough oral care for extra hydration and to reduce severity of dry mouth due to mouth breathing. Please continue oral care after all meals and swab any thickened mucus on tongue and roof of mouth as needed to prevent aspiration of oral bacteria. Will need a modified barium swallow as outpatient. Wound care recommendations: Bilateral ischial tuberosities: 1. Cleanse area with Anasept spray. Allow to dwell for 2 minutes. 2. Pat dry. 3. Apply compound cream of clotrimazole 1% cream, zinc oxide, and vitamin A&D to area. 4. Apply skin prep to jr wound skin. 5. Apply a large mepilex sacral to area. Change daily and prn. Right medial thigh.: 1. Cleanse area with Anasept spray. Allow to dwell for 2 minutes. 2. Pat dry. 3. Apply compound cream of clotrimazole 1% cream, zinc oxide, and vitamin A&D to area. 4. Apply skin prep to jr wound skin. 5. Apply a 4x4 mepilex with border to area. 6. Make sure ribeiro catheter is not causing pressure over the area. Change daily and prn. Sacrum: Santyl to punctate areas of eschar for chemical debridement, and heavy barrier cream to remaining areas with Mepilex cover --Careful routine rotation/off-loading (q2h) in bed from affected areas with special attention to avoid shearing Reposition patient at least every 2 hours from side to side. Use pillow behind back and hips. Place pillow between the knees and ankles. One pillow under head and one under upper arm. Keep head of bed no higher than 45 degrees to reduce sliding and shearing. May be on his back for meals only. When up in chair, have padded cushion in chair. May be up in chair for one hour maximum during each meal. Have pt frequently shift weight from side to side using a pillow under one side at a time. Stand Alone Forms: Nursing Discharge Form Referrals: Rashad Geiger MD [ [facility] STAFF PHYSICIAN] - (chronic indwelling ribeiro, referral for a possible suprapubic catheter) Activity:: Activity as Tolerated Equipment/Supplies:: No Equipment Needed Diet:: heart healthy Discharge Orders Discharge Orders: Discharge Order (Routine); Ordered 11/28/22 Ordered By: Danita Marquez DS: Summary Time Spent with Patient providing and/or coordinating discharge services: Greater than 30 minutes Status at Discharge Functional status at discharge: bed bound Overall status at discharge: patient is back to baseline Mental Status: mental status grossly normal Speech and Movement: speech and movement normal Mood: congruent mood Affect: normal affect Exam Narrative Exam Narrative: General: male who is awake, A&Ox1, follows commands, answers questions yes/no, comfortable HEENT: EOMI, MMM Heart: irregularly irregular rhythm, no m/r/g Lungs: CTAB/diminished breath sounds B Abdomen: soft, nontender, nondistended : has a ribeiro: yellow urine draining Extremities: no edema BLEs Psych Mental Status: mental status grossly normal Speech and Movement: speech and movement normal Mood: congruent mood Affect: normal affect DS: Data Vitals/I&O Vitals and I&O: Vital Signs Temperature 36.9 C 11/28/22 07:25 Temperature Source Tympanic 11/28/22 07:25 Pulse 64 11/28/22 07:25 Pulse Rhythm Regular 11/27/22 23:30 Pulse 74 11/25/22 12:30 Respiratory Rate 18 11/28/22 07:25 Respiratory Effort Normal 11/27/22 23:30 Respiratory Depth Normal 11/27/22 23:30 Respiratory Pattern Normal 11/27/22 23:30 Blood Pressure 147/98 H 11/28/22 07:25 Blood Pressure Mean 78 11/25/22 12:10 Blood Pressure Position Left Lateral 11/25/22 07:15 Pulse Oximetry 97 11/28/22 07:25 Oxygen Delivery Method Room Air 11/28/22 04:03 Oxygen Flow Rate 0 11/28/22 04:03 Pain Level 0 11/28/22 04:03 Intake & Output 11/27/22 11/27/22 11/28/22 11:59 23:59 11:59 Intake Total 226.5 / 686.5 460 / 686.5 100 / 100 Output Total 800 / 1400 600 / 1400 1175 / 1175 Balance -573.5 / -713.5 -140 / -713.5 -1075 / -1075 Intake: IV 126.5 / 226.5 100 / 226.5 100 / 100 Oral 100 / 460 360 / 460 Output: Urine 800 / 1400 600 / 1400 1175 / 1175 Other: Urine Color Yellow Straw Straw Dark Jacqui Urine Appearance Clear Clear Cloudy Stool Size Smear Data Completed and Pending Completed studies during hospitalization [Text1]: US renal: 1.? No significant ultrasound findings in the kidneys.? No hydronephrosis. 2.? Ribeiro catheter in the urinary bladder. CXR: Mild increased markings in lung bases. Recommend nonportable PA and lateral views when clinically possible and preferably with better inspiratory effort. Labs on day of discharge: Labs from last 24 hours 11/28/22 11/28/22 11/27/22 06:16 06:16 12:35 WBC 3.66 L RBC 3.97 L Hgb 13.0 L Hct 38.4 L MCV 97 H MCH 32.7 MCHC 33.9 RDW 11.9 Plt Count MPV Immature Gran % 0.5 Neutrophils % 50.0 Lymphocytes % 25.7 Monocytes % 13.4 Eosinophils % 9.0 Basophils % 1.4 Nucleated RBC % 0.0 Absolute Neutrophils 1.83 Absolute Lymphocytes 0.94 L Absolute Monocytes 0.49 Absolute Eosinophils 0.33 Absolute Basophils 0.05 RBC Morphology Normal Sodium 141 Potassium 3.8 Chloride 107 Carbon Dioxide 24.2 Anion Gap 9.8 BUN 12 Creatinine 1.0 Est GFR (CKD-EPI 2020) 78.49 Glucose 88 Calcium 9.2 Magnesium 1.9 C-Reactive Protein 3.99 H COVID-19 Source Nasal/Nares SARS-CoV-2 (PCR) Negative Preliminary micro results at discharge 11/24/22 03:25 Blood Culture - Preliminary Blood NO GROWTH 96 HOURS 11/24/22 03:15 Blood Culture - Preliminary Blood NO GROWTH 96 HOURS PFSH All Active Problems (Updated 11/28/22 @ 09:54 by Danita Marquez MD) Folate deficiency (Acute) B12 deficiency (Acute) Oropharyngeal dysphagia (Acute) [place] (acute kidney injury) (Acute) Sacral decubitus ulcer (Acute) Indwelling Ribeiro catheter present (Acute) Advanced care planning/counseling discussion (Acute) Communication deficit (Acute) Unable to walk (Acute) 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) Palliative care patient (Acute) DVT prophylaxis (Acute) Discharge planning issues (Acute) Schizoaffective disorder (Acute) Sepsis (Acute) UTI (urinary tract infection) (Acute) Pneumonia (Acute) Medical History Atrial fibrillation BPH (benign prostatic hyperplasia) Chronic kidney disease HTN (hypertension) Hx of hyperlipidemia Parkinsons disease Social History Smoking/Tobacco Use Status: Never Smoking risk assessment performed?: Yes Substance use type: does not use Time Spent with Patient Time Spent with Patient: 45-69 minutes Time was spent: preparing to see the patient(eg.review tests), obtaining and/or reviewing separately otained hiistory, ordering medications,tests, procedures, referring, communicating with other health animal caretaker supervisor, indepentently interpreting results, counseling the patient and care coordination
--- NOTE | 2022-11-28 10:03 | PDOC.CMDIS ---
- If Service Date Differs Date of service: 11/28/22 Time of Service: 10:03 LACE Index Scoring Tool - Questions: Length of Stay (in days): 4 - 6 Acuity (Admit via E.D.?): Yes Comorbidities: Liver or Renal Disease E.D. Visits: 1 - Answers: Total Score: 13 Risk of Readmission: High Risk Care Management Discharge Reason for Hospitalization: sepsis Discharge Plan: Cesario will discharge back to [facility] for [facility] term rehab prior to returning [facility]. He will transfer by EMS coordinated by CM. Patient/Family Education Needs: Review discharge instructions, limitations, medications, Ask Me Three
--- NOTE | 2022-11-28 10:51 | OT.INDS ---
Occupational Therapy Notes Occupational Therapy Inpatient Discharge Summary Date: 11/28/22 Dates of Service: 11/25/22-11/28/22 Referring Doctor:Danita Marquez MD OT Orders: Non Urgent Precautions: Fall, standard, full *This document serves as a summary of care, no skilled OT services were provided for this documentation at this time* PATIENT PROFILE/ADMITTING DIAGNOSIS: Pt is a 77-year-old male admitted through the ED due to fever.? Patient was admitted to ICU for management of sepsis, pneumonia, urinary tract infection, BPH, Parkinson's disease, and schizoaffective disorder. Past Medical History: All Active Problems?(Updated 11/24/22 @ 09:05 by Pasquale Gardner MD) Discharge planning issues (Acute) Schizoaffective disorder (Acute) Sepsis (Acute) UTI (urinary tract infection) (Acute) Pneumonia (Acute) Medical History? Atrial fibrillation BPH (benign prostatic hyperplasia) Chronic kidney disease HTN (hypertension) Hx of hyperlipidemia Parkinsons disease Social History/Home Situation: Pt is unable to provide OT with social hx, per CM note- Cesario resides at [facility]. He has schizoaffective disorder and Parkinsons's disease and needs modifications to communicate as he cannot do this verablly.? He requires assistance with ADLs and all care. Equipment owned/DME: Needs met by SNF SUBJECTIVE:??NT OBJECTIVE:? Mental Status: A&Ox2 Pain: Facial grimace for pain with palpation to the sacrum ROM: RUE Limited shoulder flexion which may be due to bed positioning, otherwise WFL L UE AROM WFL FUNCTIONAL MOBILITY/ADLS:? *Based on initial evaluation* Transfers with (A) Rolling in bed max (A) BATHING max (A) set up/clean up Bathing UE with mod vc (I) face and min (A) (B) UE, mod (A) abdomen Bathing LE max (A) DRESSING lying in bed Dressing UE max (A) don and doffing [facility] gown Dressing LE NT TOILETING ribeiro in place BALANCE: pt was seated in bed with max (A) support to pts abdomen ASSESSMENT:?? Patient is a? 77-year-old male referred to occupational therapy services with diagnosis of management of sepsis, pneumonia, urinary tract infection, BPH, Parkinson's disease, and schizoaffective disorder. Pt was seen for OT consult and is now being discharged and medically cleared per MD. GOALS 1.? Grooming- max (A) set, (I) with performance of oral hygiene 2.? Dressing- mod (A) don and doffing [facility] gown 3.? Bathing- (I) UE 4.? Eating- mod (A) eating routine PLAN OF CARE/TREATMENT PLAN: Discharge from skilled OT services. DISCHARGE RECOMMENDATIONS Return to SNF when medically cleared per MD- Discharge from skilled OT services. TREATMENT TIME/MINUTES/CODES no charge. Anitra Mendes OTR/L [facility]
--- NOTE | 2022-11-28 11:33 | NUR.NOTE ---
Nursing Note: report called to Mica at [facility]
--- NOTE | 2022-12-01 08:56 | PT.INDS ---
Date of service: 11/28/22 PT Notes Visit Reasons: UTI,Sepsis Physical Therapy Inpatient Discharge Summary Date: 11/28/2022 Dates of service: 11/24/2022 through 11/27/2022 This is a clinical summary of care provided for the duration of dates listed above. No charge was made in the completion of this documentation. Referring Doctor:Humza Marquez MD PT Orders: PT CONSULT: Limited ability Precautions: Fall. Standard. Activity as tolerated.? Dysphasic. Patient Profile/Admitting Diagnosis:? Cesario is a 77-year-old male patient admitted on 11/24/2022 due to fever and plugged urinary catheter.? Patient discharged for management of sepsis, pneumonia, urinary tract infection, BPH, Parkinson's disease, and schizoaffective disorder. PMHX: All Active Problems?(Updated 11/24/22 @ 09:05 by Pasquale Gardner MD) Discharge planning issues (Acute) Schizoaffective disorder (Acute) Sepsis (Acute) UTI (urinary tract infection) (Acute) Pneumonia (Acute) Medical History? Atrial fibrillation BPH (benign prostatic hyperplasia) Chronic kidney disease HTN (hypertension) Hx of hyperlipidemia Parkinsons disease Social History/Home Situation: SNF resident Equipment Owned/DME: Unknown Subjective: NT. See most recent [employer] notes. Objective: General Observation: NT. See most recent [employer] notes. Mental Status: NT. See most recent [employer] notes. Pain: NT. See most recent [employer] notes. Vital Signs: NT. See most recent [employer] notes. ROM: Right Upper Extremity: ? Shoulder Flexion WFL. Shoulder abduction WFL. Elbow flexion WFL. Wrist flexion WFL. Functional opening and closing of hand WFL. Left Upper Extremity:? Shoulder Flexion WFL. Shoulder abduction WFL. Elbow flexion WFL. Wrist flexion WFL. Functional opening and closing of hand WFL. Right Lower Extremity: Hip flexion lacks the last 50% of available motion. Hip abduction lacks the last 50% of available motion. Knee flexion lacks the last 50% of available motion. Ankle dorsiflexion lacks the last 50% of available motion. Ankle plantarflexion lacks the last 50% of available motion. Left Lower Extremity: Hip flexion lacks the last 50% of available motion. Hip abduction lacks the last 50% of available motion. Knee flexion lacks the last 50% of available motion. Ankle dorsiflexion lacks the last 50% of available motion. Ankle plantarflexion lacks the last 50% of available motion. Strength: Right Upper Extremity: Shoulder flexors 3/5. Shoulder abductors 3/5. Elbow flexors 3/5. Elbow extensors 3/5. Knitter Mechanic strong. Left Upper Extremity: Shoulder flexors 3/5. Shoulder abductors 3/5. Elbow flexors 3/5. Elbow extensors 3/5. Knitter Mechanic strong. Right Lower Extremity: Hip flexors 3-/5. Hip abductors 3-/5. Knee flexors 3-/5. Knee extensors 3-/5. Ankle dorsiflexors 3-/5. Ankle plantarflexors 3-/5. Left Lower Extremity: Hip flexors 3-/5. Hip abductors 3-/5. Knee flexors 3-/5. Knee extensors 3-/5. Ankle dorsiflexors 3-/5. Ankle plantarflexors 3-/5. BED MOBILITY/TRANSFERS? Supine-sit: Mod A Sit-stand: CGA x2 with use of STEDY ? Stand-sit: CGA with use of STEDY Bed-chair: STEDY with SBA? Balance: Static Sitting: Fair Dynamic Sitting: Poor Static Standing: Unable to test Dynamic Standing: Unable to test Assessment: Able to follow single step commands.? Patient was only able to tolerate edge of bed sitting up to about 10 minutes with desaturation episodes x 2 down to 73% and 84% with recovery after about 1 minute each.? Deferred further mobility testing as patient requires assiatnce of at least 2 people to be safely moved out of bed.? Will coordinate mobility assessment tomorrow with nursing staff/[employer] for safety. Patient presents with clinical signs and symptoms consistent with current/admitting diagnoses that have resulted to mobility limitations, gait instability, generalized weakness, and overall ADL decline as demonstrated by the following impairment level findings: 1.? Decreased strength to B UE/LE major muscle groups 2.? Impaired sitting balance 3.? Impaired activity tolerance 4.? Limitation of joint range of motion in B LE joints 5.? Limited verbal expression Impairments are contributing to the following functional limitations: 1.? Decline in bed mobility skills 2.? Decline in transfer skills 3.? Difficulty with ambulation without assistive device and physical assistance 4.? Increased completion time for mobility ADL performance 5.? Increased risk for falls 6.? Difficulty with managing steps alone safely Goals: Goals X1 week 1. Supine-Sit minimal assist NOT MET 2. Sit-Supine minimal assist NOT MET 3. Sit-Stand minimal assist NOT MET 4. Stand-Sit TBD once full mobility assessment is completed NOT MET 5. Bed-Chair TBD once full mobility assessment is completed NOT MET 6. Chair-Bed TBD once full mobility assessment is completed NOT MET 7. Gait on level surface TBD once full mobility assessment is completed NOT MET DISCHARGE RECOMMENDATIONS: [] ? Home with no services [] [] ? Home with services [specify] [] ? Home with outpatient PT [] [] ? SNF for continued rehabilitation [] [] ? [facility] [] [] ? SNF versus LTC based on ability to participate and progress [] [X]? Return to SNF when medically cleared TREATMENT CODE/TIME: NC Thank you for the opportunity to participate in the care of this patient. Penelope Cruz PT, DPT, CLT [facility] [place], [place]
== END 2022-11-28 11:38 | disposition skilled nursing facility (03) | DRG 698 ==
LOC: ER 06:35 → ICU 06:55 → MS 11-25 12:43
PROVIDERS: Internal Medicine; Admitting Provider Family Medicine; Emergency Provider Physician Assistant; PCP Family Medicine; Visit Provider Family Medicine
DX: T83.511A Infection and inflammatory reaction due to indwelling urethral catheter, initial encounter (principal); A41.9 Sepsis, unspecified organism; R65.20 Severe sepsis without septic shock; J18.9 Pneumonia, unspecified organism; N17.9 Acute kidney failure, unspecified; N13.8 Other obstructive and reflux uropathy; N39.0 Urinary tract infection, site not specified; I48.0 Paroxysmal atrial fibrillation; I12.9 Hypertensive chronic kidney disease with stage 1 through stage 4 chronic kidney disease, or unspecified chronic kidney disease; N18.9 Chronic kidney disease, unspecified; G20 Parkinson's disease; F25.9 Schizoaffective disorder, unspecified; E78.5 Hyperlipidemia, unspecified; D63.8 Anemia in other chronic diseases classified elsewhere; N40.1 Benign prostatic hyperplasia with lower urinary tract symptoms; R26.2 Difficulty in walking, not elsewhere classified; R33.9 Retention of urine, unspecified; R13.12 Dysphagia, oropharyngeal phase; L89.322 Pressure ulcer of left buttock, stage 2; L89.312 Pressure ulcer of right buttock, stage 2; B96.4 Proteus (mirabilis) (morganii) as the cause of diseases classified elsewhere; E53.8 Deficiency of other specified B group vitamins
CPT/HCPCS: 36415; 76770; 80048; 80053; 82550; 84145; 87040; 87077; 87081; 87635; 87637; 93005; 96361; 96374; 97110; 97163; 97166; 97530; 97535; 99221; 99231; 99285; 71045; 81003; 81015; 82607; 82728; 82746; 83540; 83550; 83605; 83735; 84484; 85014; 85018; 85025; 86140; 87086; 87186; 93010; 99223; 99232; 99233; 99239; 99291; J0131; J1644; J2543; J3420

== ENCOUNTER 2022-11-29 04:18 | Outpatient (REF) | payer MEDICARE, MEDICAID, SELFPAY ==
[2022-11-29 04:31] LABS: Abs Immature Grans 0.02 10^3/uL (0.0-0.06); Absolute Basophil Count 0.05 10^3/uL (0.0-0.2); Absolute Eosinophil Count 0.28 10^3/uL (0.0-0.7); Absolute Lymphocyte Count 1.16 10^3/uL (1.2-3.4); Absolute Monocyte Count 0.58 10^3/uL (0.1-0.8); Absolute Neutrophil Count 2.27 10^3/uL (1.2-6.7); Basophils % 1.1; Eosinophils % 6.4; HCT 37.7 % (40.0-50.0); HGB 12.6 g/dL (13.5-17.5); Immature Grans % 0.5; Lymphocytes % 26.6; MCH 32.2 pg (27.0-33.0); MCHC 33.4 % (32.0-36.0); MCV 96 fL (80-95); MPV 10.7 fL (8.0-11.0); Monocytes % 13.3; Neutrophils % 52.1; Platelet Count 214 10^3/uL (130-400); RBC 3.91 10^6/uL (4.36-5.78); RDW-SD 42.6 fL; WBC 4.36 10^3/uL (4.4-10.8)
[2022-11-29 04:40] LABS: ALT 32 U/L (16-63); AST 30 U/L (15-37); Albumin 3.1 g/dL (3.4-5.0); Alkaline Phosphatase 85 U/L (46-116); Anion Gap 11.9 mmol/L (3-11); BUN 11 mg/dL (7-18); Bilirubin, Total 0.4 mg/dL (0.2-1.0); CO2 24.1 mmol/L (21.0-32.0); CREATININE 0.7 mg/dL (0.70-1.30); Calcium 8.8 mg/dL (8.5-10.1); Chloride 108 mmol/L (98-107); Estimated GFR 96.09 (mL/min/1.73m2); Glucose 79 mg/dL (74-106); Potassium 3.6 mmol/L (3.5-5.1); Sodium 144 mmol/L (136-145); Total Protein 6.5 g/dL (6.4-8.2)
== END 2022-11-29 04:19 | disposition home or self-care (01) ==
LOC: LBO 04:18
PROVIDERS: PCP Family Medicine; Visit Provider Family Medicine
DX: A41.89 Other specified sepsis (principal); N17.9 Acute kidney failure, unspecified; R50.9 Fever, unspecified
CPT/HCPCS: 80053; 85025; 87086

== ENCOUNTER 2022-11-29 15:27 | Outpatient (REF) | payer SELFPAY ==
[2022-11-29 18:16] LABS: C Diff PCR Negative (Negative)
== END 2022-11-29 15:28 | disposition home or self-care (01) ==
LOC: LBN 15:27
PROVIDERS: PCP Family Medicine; Visit Provider Family Medicine
DX: R19.7 Diarrhea, unspecified (principal)
CPT/HCPCS: 87493

== ENCOUNTER 2022-12-10 09:49 | Inpatient (IN) | payer MEDICARE, MEDICAID, SELFPAY ==
[2022-12-10] VITALS (54 sets, daily range): BP systolic 106–147; BP diastolic 45–93; PULSE 51–106; RESP 1–25; TEMP 36.6–37.2; O2SAT 90–97
--- NOTE | 2022-12-10 09:45 | DI.CT_ITS ---
Exam(s) CT CHEST/ABD/PEL W EXAM: CT CHEST/ABD/PEL W CLINICAL HISTORY: fever, ? aspiration, + sacral ulcer TECHNIQUE: Imaging Protocol: Axial computed tomography images with coronal and sagittal reformatted images were created and reviewed CONTRAST MATERIAL: Intravenous: Omnipaque 350 contrast volume:100 mL Oral: No COMPARISON: No exams were available for comparison FINDINGS: The examination is limited due to patient motion artifact. CHEST: Tracheobronchial tree: There is a small amount of fluid in the trachea suggesting aspiration. Pulmonary parenchyma: Small infiltrates are seen in the dependent portion of the lungs which may repr esent atelectasis. No architectural distortion. Visualized thyroid gland: There is a 2 x 2 cm hypodense mass in right lobe of the thyroid gland. Non emergent thyroid ultrasound is recommended for further evaluation. Mediastinum and Elina: No dominant adenopathy or fluid collection. The esophagus is unremarkable. Pleura: No effusion or pneumothorax. Heart: The heart is not dilated. Coronary artery calcification is present. No pericardial effusion. Pulmonary arteries: Due to the bolus timing, evaluation of pulmonary emboli in the segmental and subs egmental pulmonary arteries is severely limited. No large central pulmonary embolus is present. Aorta: Thoracic aorta non-dilated. Atherosclerosis is present. Lymph nodes: Within normal limits. Soft tissues: Unremarkable. Bones:Within normal limits for the patient's age. ABDOMEN: Liver: Normal density. No measurable mass. Portal, Superior Mesenteric, and Splenic Veins: Unremarkable. Gallbladder and Biliary Tract: There is cholelithiasis. No biliary ductal dilatation. Pancreas: Normal density, no abnormal calcifications or inflammatory process. Spleen: Normal. Adrenals: No masses seen. Kidneys: Normal size, contour and axis. No radiodense stones or obstructive uropathy. There are simpl e bilateral renal cysts. No follow-up is recommended. Abdominal Aorta: Abdominal portion non-dilated. Atherosclerosis is present. Bowel: No obstruction or bowel wall thickening. There is no evidence of appendicitis. Peritoneal Cavity: No ascites, collection or mesenteric inflammatory response. No free air. Lymph Nodes: Within normal limits. Bones: Within normal limits for the patient's age. Soft Tissues: There is a fat containing umbilical hernia. There are fat containing inguinal hernias bilaterally. PELVIS: Bladder: There is a Wilkerson catheter within the urinary bladder. Stones are seen in the urinary bladde r. Reproductive Organs: Prostate gland is enlarged. Lymph Nodes: Within normal limits. Bones: Within normal limits. IMPRESSION: 1. Fluid in the trachea consistent with aspiration. 2. Bilateral basilar infiltrates which may represent atelectasis or pneumonia. 3. No acute abdominal or pelvic process. 4. Incidental findings in the abdomen and pelvis as described above. RADIATION DOSE DELIVERED: 1,999.88mGy.cm Total DLP DATA REPOSITORY: All CT scans at this facility are submitted to the National Radiology Data Registry (NRDR) Dose Index Registry (DIR) with the [employer] (ACR). RADIATION OPTIMIZATION: All CT scans at this facility use at least one of these dose optimization te chniques: automated exposure control; mA and/or kV adjustment per patient size (includes targeted exa ms where dose is matched to clinical indication); or iterative reconstruction.
--- NOTE | 2022-12-10 10:02 | ED.GENADUL_ITS ---
Discharge Plan Discharge Details Chief Complaint: GenMedical Primary Care Provider: Henrik Mukherjee ED Provider: Andrade Arguelles Home Meds and New Rx's Prescriptions: No Action polyethylene glycol 3350 [Miralax] 17 gram/dose powder 17 gm PO DAILY PRN entacapone [Comtan] 200 mg tablet 200 mg PO TID triamcinolone acetonide 0.1 % Cream 1 applic TOPICAL BID Rx Instructions: APPLY TWICE A DAY TO CALVES FOR DRYNESS magnesium hydroxide [Milk of Magnesia] 400 mg/5 mL Suspension 30 ml PO QHS PRN Fleet Enema 19-7 gram/118 mL Enema 118 ml AR ONCE PRN acetaminophen 325 mg Tablet 650 mg PO 6XD PRN (Reason: Fever) amantadine HCl 100 mg tablet 100 mg PO TID aspirin 81 mg Tablet,Chewable 81 mg PO DAILY benztropine 1 mg tablet 1 mg PO DAILY carbidopa-levodopa 25-100 mg tablet 2 tab PO QID diltiazem HCl 120 mg Capsule,Extended Release 12 Hr 120 mg PO DAILY bisacodyl [Dulcolax (bisacodyl)] 10 mg Suppository 10 mg AR DAILY PRN (Reason: IF NO RESULT FROM mom OR MIRALAX) cyanocobalamin (vitamin B-12) [Vitamin B-12] 500 mcg Tablet 1,000 mcg PO DAILY Qty: 0 0RF folic acid 1 mg Tablet 1 mg PO DAILY Qty: 0 0RF One Daily Multi-Vit w-Mineral 4.5 mg iron Tablet 1 tab PO DAILY@1000 Qty: 0 0RF zinc sulfate [Zinc-220] 50 mg zinc (220 mg) Capsule 220 mg PO DAILY Qty: 12 0RF Rx Instructions: for 12 days starting 12/05/22 TB. magnesium oxide 420 mg Tablet 420 mg PO DAILY ascorbic acid (vitamin C) [Vitamin C] 500 mg tablet 500 mg PO DAILY Medical Decision Making 77-year-old male returns from the local rehabilitation facility. He was recently admitted with sepsis due to urinary tract infection associated with indwelling Wilkerson catheter. He has a history of Parkinson disease and schizoaffective disorder and at baseline has minimal verbal interaction. He was noted to have a fever with a question of aspiration on his pur?ed diet at the facility this morning. There is note of fever 101.5. He arrives to the ER diaphoretic and mildly ill-appearing. He has a foul-smelling indwelling Wilkerson catheter and evidence of persistent sacral ulceration. The sacral ulcer was dressed. The patient had his Wilkerson catheter changed. Blood, urine cultures obtained. Patient referred for imaging studies to rule out source of infectious process. At the time of discharge on November 28 patient was prescribed Augmentin for 5 days which he has completed. The laboratory analysis reveals prerenal dehydration with BUN of 42, creatinine 1.1. Sodium is elevated at 154. Potassium 3.5, chloride 116. Glucose is 133, LFTs unremarkable and troponin negative. CBC reveals white count 6, hematocrit 48, platelets 270. Lactic acid elevated at 1.6. Urinalysis notes dysuria after Wilkerson catheter change. Patient given 2 L normal saline fluid bolus. The imaging studies bibasilar infiltrates and debris in the trachea consistent with aspiration. There are sixto dder stones and thickened irregular bladder wall. Patient is to be DNI. He has previously had contact with palliative care and would benefit from their consultation. His brother states that the patient would want a trial of CPR. Today, we will proceed with admission for treatment of bibasilar pneumonia. HPI General Mode of arrival: EMS . Date/Time Provider Initiated Documentation: 12/10/22 09:49 . Limitations to Documentation: language barrier . Information obtained by: family, EMS and old records reviewed . History of Present Illness 77 year old M presents to the emergency department with the chief complaint of Fever and mental status change, described as moderate and similar to prior episodes, Patient started experiencing this hour(s) and it has been intermittent. No relieving factors improve symptom(s), No exacerbating factors reported . Patient notes other (Question of aspiration). Related Data Home Medications Medication Instructions Recorded Confirmed entacapone 200 mg tablet (Comtan) 200 mg PO TID 11/06/18 12/10/22 polyethylene glycol 3350 17 17 gm PO DAILY PRN 11/06/18 12/10/22 gram/dose oral powder (Miralax) acetaminophen 325 mg tablet 650 mg PO 6XD PRN Fever 11/25/22 12/10/22 amantadine HCl 100 mg tablet 100 mg PO TID 11/25/22 12/10/22 aspirin 81 mg chewable tablet 81 mg PO DAILY 11/25/22 12/10/22 benztropine 1 mg tablet 1 mg PO DAILY 11/25/22 12/10/22 bisacodyl 10 mg rectal suppository 10 mg AR DAILY PRN IF NO RESULT 11/25/22 12/10/22 (Dulcolax (bisacodyl)) FROM mom OR MIRALAX carbidopa 25 mg-levodopa 100 mg 2 tab PO QID 11/25/22 12/10/22 tablet diltiazem HCl 120 mg 120 mg PO DAILY 11/25/22 12/10/22 capsule,extended release 12 hr magnesium hydroxide 400 mg/5 mL 30 ml PO QHS PRN 11/25/22 12/10/22 oral suspension (Milk of Magnesia) sodium phosphates 19 gram-7 118 ml AR ONCE PRN 11/25/22 12/10/22 gram/118 mL enema (Fleet Enema) triamcinolone acetonide 0.1 % 1 applic topical BID 11/25/22 12/10/22 topical cream cyanocobalamin (vitamin B-12) 500 1,000 mcg PO DAILY #0 tabs 11/28/22 12/10/22 mcg tablet (Vitamin B-12) folic acid 1 mg tablet 1 mg PO DAILY #0 tabs 11/28/22 12/10/22 multivitamin with minerals-ferrous 1 tab PO DAILY@1000 #0 tabs 11/28/22 12/10/22 sulfate 4.5 mg iron tablet (One Daily Multivitamins with Minerals) zinc sulfate 50 mg zinc (220 mg) 220 mg PO DAILY #12 caps 11/28/22 12/10/22 capsule (Zinc-220) ascorbic acid (vitamin C) 500 mg 500 mg PO DAILY 12/10/22 12/10/22 tablet (Vitamin C) magnesium oxide 420 mg tablet 420 mg PO DAILY 12/10/22 12/10/22 Previous Rx's Medication Instructions Recorded cyanocobalamin (vitamin B-12) 500 1,000 mcg PO DAILY #0 tabs 11/28/22 mcg tablet (Vitamin B-12) folic acid 1 mg tablet 1 mg PO DAILY #0 tabs 11/28/22 multivitamin with minerals-ferrous 1 tab PO DAILY@1000 #0 tabs 11/28/22 sulfate 4.5 mg iron tablet (One Daily Multivitamins with Minerals) zinc sulfate 50 mg zinc (220 mg) 220 mg PO DAILY #12 caps 11/28/22 capsule (Zinc-220) Allergies Allergy/AdvReac Type Severity Reaction Status Date / Time No Known Allergies Allergy Verified 11/06/18 16:28 General Stated Complaint: GenMedical JEANETTE: 2 Review of Systems Narrative: Patient's brother states slightly decreased interaction but near baseline. 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 HEAD: Normocephalic, atraumatic ENT: Mucous membranes dry, oropharynx with poor dentition, External ear exam u nremarkable EYES: PERRL, EOMI NECK: Full ROM, no REGGIE, no menigismus CHEST/RESP: Nontender, clear to auscultation bilateral, no wheeze/rhonchi/rales CARDIOVASCULAR: RRR, no murmur, rub suha. 2+ Rad pulse bilateral ABDOMEN: Soft, nontender, no mass. +Bowel sounds. The patient's perineum and sacrum reveals approximately 4 x 7 cm shallow ulceration overlying the ischial tuberosities. EXT: Full ROM, no edema, no rash Psych: Unable to assess Course Vital Signs Vital signs: Vital Signs Temperature 36.7 C 12/10/22 09:50 Pulse 94 H 12/10/22 09:50 Respiratory Rate 24 12/10/22 09:50 Blood Pressure 141/92 H 12/10/22 09:50 Pulse Oximetry 90 L 12/10/22 09:50 Temperature 36.7 C 12/10/22 09:50 Temperature Source Axillary 12/10/22 09:50 Pulse 94 H 12/10/22 09:50 Respiratory Rate 24 12/10/22 09:50 Blood Pressure 141/92 H 12/10/22 09:50 Blood Pressure Position Sitting 12/10/22 09:50 Pulse Oximetry 90 L 12/10/22 09:50 Oxygen Delivery Method Room Air 12/10/22 09:50 Oxygen Flow Rate 0 12/10/22 09:50 Lab/Test Results Lab/Test Results: 12/10/22 09:59 Blood Blood Culture - Pending 12/10/22 09:59 Blood Blood Culture - Pending
[2022-12-10 10:19] LABS: Abs Immature Grans 0.01 10^3/uL (0.0-0.06); Absolute Basophil Count 0.03 10^3/uL (0.0-0.2); Absolute Eosinophil Count 0.01 10^3/uL (0.0-0.7); Absolute Lymphocyte Count 0.72 10^3/uL (1.2-3.4); Absolute Monocyte Count 0.36 10^3/uL (0.1-0.8); Absolute Neutrophil Count 5.84 10^3/uL (1.2-6.7); Basophils % 0.4; Eosinophils % 0.1; HCT 48.3 % (40.0-50.0); HGB 15.3 g/dL (13.5-17.5); Immature Grans % 0.1; Lactate 1.6 mmol/L (0.6-1.4); Lymphocytes % 10.3; MCH 31.3 pg (27.0-33.0); MCHC 31.7 % (32.0-36.0); MCV 99 fL (80-95); MPV 10.3 fL (8.0-11.0); Monocytes % 5.2; Neutrophils % 83.9; Platelet Count 270 10^3/uL (130-400); RBC 4.89 10^6/uL (4.36-5.78); RDW 12.6 % (11.8-14.1); RDW-SD 46.3 fL; WBC 6.97 10^3/uL (4.4-10.8)
[2022-12-10 10:49] LABS: ALT 20 U/L (16-63); AST 15 U/L (15-37); Albumin 3.7 g/dL (3.4-5.0); Alkaline Phosphatase 89 U/L (46-116); Anion Gap 13.9 mmol/L (3-11); BUN 42 mg/dL (7-18); Bilirubin, Total 0.8 mg/dL (0.2-1.0); CO2 24.1 mmol/L (21.0-32.0); CREATININE 1.1 mg/dL (0.70-1.30); Chloride 116 mmol/L (98-107); Estimated GFR 70.01 (mL/min/1.73m2); Glucose 133 mg/dL (74-106); Magnesium 2.5 mg/dL (1.8-2.4); Potassium 3.5 mmol/L (3.5-5.1); Sodium 154 mmol/L (136-145); Total Protein 8.7 g/dL (6.4-8.2); Troponin I < 50 ng/L (<or=60)
[2022-12-10] MEDS: Normal Saline 1,000 ML 150 ML IV (10:53)
[2022-12-10] MEDS: PIPERACILLIN/TAZO 3.375 GM in Normal Saline 50 ML IVPB ×3 (10:53→22:54)
[2022-12-10] MEDS: Normal Saline Flush 10 ML SYR IVP ×3 (11:07→18:31)
[2022-12-10] MEDS: Normal Saline - Diluent 50 ML VIAL IJ (11:08)
[2022-12-10] MEDS: Omnipaque 350 MG/ML 100 ML BTL IJ (11:08)
[2022-12-10 11:43] LABS: Bilirubin Negative (Negative); Blood Moderate (Negative); Clarity Clear (Clear); Glucose Negative (Negative); Ketones Trace mg/dL (Negative); Leukocyte Esterase Negative (Negative); Nitrite Negative (Negative); Specific Gravity 1.025 (1.005-1.025); Urobilinogen 0.2 mg/dL (Up to 0.2)
[2022-12-10 11:51] LABS: Bacteria Moderate HPF (Negative); C & S Indicated? C&S Done As Ordered; Casts Negative LPF (Negative); Crystals Negative HPF (Negative); Epithelial Cells Few HPF (Negative); Mucus Heavy (Negative); WBC 0-2 HPF (0-5)
--- NOTE | 2022-12-10 11:59 | DI.VRAD_ITS ---
PROCEDURE INFORMATION: Exam: CT Chest With Contrast; Diagnostic Exam date and time: 12/10/2022 11:09 AM Age: 77 years old Clinical indication: Other: Fever, ? aspiration, +sacral ulcer TECHNIQUE: Imaging protocol: Diagnostic computed tomography of the chest with contrast. 3D rendering (Not supervised by radiologist): MIP and/or 3D reconstructed images were created by the technologist. Radiation optimization: All CT scans at this facility use at least one of these dose optimization techniques: automated exposure control; mA and/or kV adjustment per patient size (includes targeted exams where dose is matched to clinical indication); or iterative reconstruction. Contrast material: OMNIPAQUE 350; Contrast volume: 100 ml; Contrast route: INTRAVENOUS (IV); COMPARISON: XR PORTABLE CHEST AP 06/17/2023 03:29 FINDINGS: Thyroid: Bilateral thyroid nodules. Calcification in the left thyroid gland. 2.1 cm inferior posterior right thyroid nodule. Trachea: Debris within the trachea. Lungs: Low lung volumes. Bibasilar infiltrates. Pleural spaces: Unremarkable. No pneumothorax. No pleural effusion. Heart: Cardiomegaly. Coronary arteries: Calcified coronary arteries. Lymph nodes: Unremarkable. No enlarged lymph nodes. Vasculature: Atherosclerotic disease. Diaphragm: Asymmetric elevation of the right hemidiaphragm. Bones/joints: Multilevel degenerative changes of the spine. Degenerative changes of the shoulders. Compression deformity of midthoracic vertebra. Hemangioma involving a lower thoracic vertebra. Soft tissues: Unremarkable. IMPRESSION: 1. Debris within the trachea consistent with aspiration. 2. Bibasilar infiltrates. 3. Bilateral thyroid nodules warrants further evaluation with dedicated thyroid ultrasound. 4. Additional findings as discussed above. PROCEDURE INFORMATION: Exam: CT Abdomen And Pelvis With Contrast Exam date and time: 12/10/2022 11:09 AM Age: 77 years old Clinical indication: Other: Fever, ? aspiration, +sacral ulcer TECHNIQUE: Imaging protocol: Computed tomography of the abdomen and pelvis with contrast. 3D rendering (Not supervised by radiologist): MIP and/or 3D reconstructed images were created by the technologist. Radiation optimization: All CT scans at this facility use at least one of these dose optimization techniques: automated exposure control; mA and/or kV adjustment per patient size (includes targeted exams where dose is matched to clinical indication); or iterative reconstruction. Contrast material: OMNIPAQUE 350; Contrast volume: 100 ml; Contrast route: INTRAVENOUS (IV); COMPARISON: US RENAL 06/17/2023 15:04 FINDINGS: Liver: Normal. No mass. Gallbladder and bile ducts: Cholelithiasis. Pancreas: Normal. No ductal dilation. Spleen: Normal. No splenomegaly. Adrenal glands: Normal. No mass. Kidneys and ureters: Multiple exophytic hypodensities involving the left kidney consistent with renal cysts. Subcentimeter right renal cysts. Small exophytic cyst inferior pole of the right kidney. Stomach and bowel: Unremarkable. No obstruction. No mucosal thickening. Appendix: No evidence of appendicitis. Intraperitoneal space: Unremarkable. No free air. No significant fluid collection. Vasculature: Atherosclerotic disease. Lymph nodes: Unremarkable. No enlarged lymph nodes. Urinary bladder: Wilkerson catheter in place with thickened irregular bladder wall. Decompressed bladder. Multiple bladder stones. The largest bladder stone measures 1.1 cm. Reproductive: Enlarged prostate. Bones/joints: Multilevel degenerative changes of the spine. Degenerative changes of the hips. Decreased bone mineralization. Soft tissues: Fat distension of the inguinal canals. Umbilical hernia with omental fat. Thickening of the soft tissues posterior to the coccyx may correspond to patient's sacral ulcer. IMPRESSION: 1. Multiple bladder stones with thickened irregular bladder wall. 2. Cholelithiasis. 3. Enlarged prostate. 4. Umbilical hernia with omental fat. Fat distension of the inguinal canals. 5. Additional findings as discussed above. Dictated and Authenticated by: Kat Rivero MD. Ordering:ARNALDO Zafar MD
[2022-12-10] MEDS: VANCOMYCIN/WATER (PEG) 1.5 GM/300 ML BAG IVPB (12:42)
[2022-12-10] MEDS: Normal Saline 1,000 ML 1000 ML IV (12:45)
--- NOTE | 2022-12-10 13:13 | HPE_ITS ---
Date of service: 12/10/22 Time of Service: 13:14 Assessment and Plan Assessment and plan (1) Pneumonia: Status: Acute Assessment and plan: Aspiration PNA. Given vancomycin/zosyn in the ED. Will continue for now; low threshold to d/c vancomycin. MRSA swab pending. Await pneumonia studies including strep/legionella/mycoplasma. NPO. Speech eval - aspiration PNA felt to be most likely. Wean O2 as tolerated. (2) Acute respiratory failure with hypoxia: Status: Acute Assessment and plan: In setting of aspiration pneumonia + pneumonitis. As above (3) Oropharyngeal dysphagia: Status: Acute Assessment and plan: NPO. Consider NGT. Speech therapy eval. 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 Will discuss with pharmacy is ODT formulation of sinemet is available. Alternatively, a conversation re NGT needs to be had (5) Atrial fibrillation: Assessment and plan: Holding oral meds. Will write for prn IV lopressor. MOnitor on tele. It is unclear to me at this time what happened to apixaban that [facility] - we will inquire about this. (6) DVT prophylaxis: Status: Acute Assessment and plan: sc heparin (7) Discharge planning issues: Status: Acute Assessment and plan: DNI C/s PT, palliative care, wound care. History of Present Illness History of Present Illness Chief Complaint: Difficulties with a pureed diet, new cough, fever, ?aspiration this morning Narrative: Mr Moralez is a 77 year old male with PMHx of Parkinsonism with oropharyngeal dysphagia on pureed diet with nectar thickened fluids, as well as h/o schizoaffective disorder, urinary retention and sacral decubitous ulcer s/p ribeiro catheter, who presented to [facility] ED from [facility] with complaints of a new cough since yesterday, fever of 101.5, possible asp iration event this morning, and having difficulty tolerating a pureed diet with nectar thickened fluids. The patient was evaluated by speech therapy on last admission who had made these recommendations as well as a recommendation for an MBSS as outpatient. In the ED, the patient is found to require 4L of O2 by face mask to saturate in the 90s. His CXR reveals bibasilar pneumonia. He was initiated on empiric vancomycin and zosyn. Hospitalist admission was requested. On arrival to the medical surgical floor, the patient is on 2L of O2 by facemask. He is not able to clear his own secretions orally; he has been gargling on them and is aspirating on even pudding. He has been made NPO. Review of Systems Unobtainable due to mental status [facility] All Active Problems (Updated 12/10/22 @ 14:17 by Danita Marquez MD) Discharge planning issues (Acute) DVT prophylaxis (Acute) Acute respiratory failure with hypoxia (Acute) Pneumonia (Acute) Folate deficiency (Acute) B12 deficiency (Acute) Oropharyngeal dysphagia (Acute) [place] (acute kidney injury) (Acute) Sacral decubitus ulcer (Acute) Indwelling Ribeiro catheter present (Acute) Advanced care planning/counseling discussion (Acute) Communication deficit (Acute) Unable to walk (Acute) 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) Palliative care patient (Acute) Schizoaffective disorder (Acute) Sepsis (Acute) UTI (urinary tract infection) (Acute) Pneumonia (Acute) Medical History Atrial fibrillation BPH (benign prostatic hyperplasia) Chronic kidney disease HTN (hypertension) Hx of hyperlipidemia Parkinsons disease Social History Smoking/Tobacco Use Status: Never Smoking risk assessment performed?: Yes Substance use type: does not use Meds Allergies and Home Medications Allergies Allergy/AdvReac Type Severity Reaction Status Date / Time No Known Allergies Allergy Verified 11/06/18 16:28 Home Medications Medication Instructions Recorded Confirmed Type entacapone 200 mg tablet (Comtan) 200 mg PO TID 11/06/18 12/10/22 History polyethylene glycol 3350 17 17 gm PO DAILY PRN 11/06/18 12/10/22 History gram/dose oral powder (Miralax) acetaminophen 325 mg tablet 650 mg PO 6XD PRN Fever 11/25/22 12/10/22 History amantadine HCl 100 mg tablet 100 mg PO TID 11/25/22 12/10/22 History aspirin 81 mg chewable tablet 81 mg PO DAILY 11/25/22 12/10/22 History benztropine 1 mg tablet 1 mg PO DAILY 11/25/22 12/10/22 History bisacodyl 10 mg rectal suppository 10 mg OR DAILY PRN IF NO RESULT 11/25/22 12/10/22 History (Dulcolax (bisacodyl)) FROM mom OR MIRALAX carbidopa 25 mg-levodopa 100 mg 2 tab PO QID 11/25/22 12/10/22 History tablet diltiazem HCl 120 mg 120 mg PO DAILY 11/25/22 12/10/22 History capsule,extended release 12 hr magnesium hydroxide 400 mg/5 mL 30 ml PO QHS PRN 11/25/22 12/10/22 History oral suspension (Milk of Magnesia) sodium phosphates 19 gram-7 118 ml OR ONCE PRN 11/25/22 12/10/22 History gram/118 mL enema (Fleet Enema) triamcinolone acetonide 0.1 % 1 applic topical BID 11/25/22 12/10/22 History topical cream cyanocobalamin (vitamin B-12) 500 1,000 mcg PO DAILY #0 tabs 11/28/22 12/10/22 Rx mcg tablet (Vitamin B-12) folic acid 1 mg tablet 1 mg PO DAILY #0 tabs 11/28/22 12/10/22 Rx multivitamin with minerals-ferrous 1 tab PO DAILY@1000 #0 tabs 11/28/22 12/10/22 Rx sulfate 4.5 mg iron tablet (One Daily Multivitamins with Minerals) zinc sulfate 50 mg zinc (220 mg) 220 mg PO DAILY #12 caps 11/28/22 12/10/22 Rx capsule (Zinc-220) ascorbic acid (vitamin C) 500 mg 500 mg PO DAILY 12/10/22 12/10/22 History tablet (Vitamin C) magnesium oxide 420 mg tablet 420 mg PO DAILY 12/10/22 12/10/22 History Exam Narrative Exam Narrative: General: Elderly male who is gargling on his secretions, moans in response to any of my questions and I cannot tell whether it's yes or no; follows commands, on 2L of O2 by facemask. Neurological: A&Ox1 at least (unable to fully evaluate), rigid Psychiatric: Unable to fully examine given mental status Skin: Dressing coccyx/buttocks. HEENT: Atraumatic, normocephalic, EOMI, MMM, clear oropharynx, no submandibular or cervical lymphadenopathy, no goiter or JVD Cardiovascular: irregularly irregular rhythm, no m/r/g Lungs: rales throughout B lung leon - ?resonating from upper airway gurgling sounds Gastrointestinal: soft, nontender, nondistended Genitourinary: has a ribeiro Extremities: no edema BLEs, 1+ pedal pulses B, no lesions B feet, no clubbing/cyanosis Results Imaging Additional studies: CT chest/abdomen/pelvis: 1. ? Debris within the trachea consistent with as piration. 2. ? Bibasilar infiltrates. 3. ? Bilateral thyroid nodules warrants further evaluation with dedicated thyroid ultrasound. 4. ? Additional findings as discussed above. 1. ? Multiple bladder stones with thickened irregular bladder wall. 2. ? Cholelithiasis. 3. ? Enlarged prostate. 4. ? Umbilical hernia with omental fat. Fat distension of the inguinal canals. Labs 12/10/22 10:10 12/10/22 10:10 Labs: Laboratory Results - last 24 hr 12/10/22 12/10/22 12/10/22 10:10 10:10 10:10 WBC 6.97 RBC 4.89 Hgb 15.3 Hct 48.3 MCV 99 H MCH 31.3 MCHC 31.7 L RDW 12.6 Plt Count 270 MPV 10.3 Immature Gran % 0.1 Neutrophils % 83.9 Lymphocytes % 10.3 Monocytes % 5.2 Eosinophils % 0.1 Basophils % 0.4 Nucleated RBC % 0.0 Absolute Neutrophils 5.84 Absolute Lymphocytes 0.72 L Absolute Monocytes 0.36 Absolute Eosinophils 0.01 Absolute Basophils 0.03 VBG Lactate 1.6 H Sodium 154 H Potassium 3.5 Chloride 116 H Carbon Dioxide 24.1 Anion Gap 13.9 H BUN 42 H Creatinine 1.1 Est GFR (CKD-EPI 2020) 70.01 Glucose 133 H Calcium 10.0 Magnesium 2.5 H Total Bilirubin 0.8 AST 15 ALT 20 Alkaline Phosphatase 89 Troponin I < 50 Total Protein 8.7 H Albumin 3.7 Urine Color Urine Clarity Urine pH Ur Specific [place] Urine Protein Urine Ketones Urine Blood Urine Nitrite Urine Bilirubin Urine Urobilinogen Ur Leukocyte Esterase Urine RBC Urine WBC Ur Epithelial Cells Urine Crystals Urine Bacteria Urine Casts Urine Mucus Ur Culture Indicated? Urine Glucose 12/10/22 11:25 WBC RBC Hgb Hct MCV MCH MCHC RDW Plt Count MPV Immature Gran % Neutrophils % Lymphocytes % Monocytes % Eosinophils % Basophils % Nucleated RBC % Absolute Neutrophils Absolute Lymphocytes Absolute Monocytes Absolute Eosinophils Absolute Basophils VBG Lactate Sodium Potassium Chloride Carbon Dioxide Anion Gap BUN Creatinine Est GFR (CKD-EPI 2020) Glucose Calcium Magnesium Total Bilirubin AST ALT Alkaline Phosphatase Troponin I Total Protein Albumin Urine Color Yellow Urine Clarity Clear Urine pH 6.0 Ur Specific [place] 1.025 Urine Protein 100 H Urine Ketones Trace H Urine Blood Moderate H Urine Nitrite Negative Urine Bilirubin Negative Urine Urobilinogen 0.2 Ur Leukocyte Esterase Negative Urine RBC 10-20 H Urine WBC 0-2 Ur Epithelial Cells Few Urine Crystals Negative Urine Bacteria Moderate Urine Casts Negative Urine Mucus Heavy Ur Culture Indicated? C&S Done As Ordered Urine Glucose Negative Last Vital Signs Temp 36.7 C 12/10/22 09:50 Pulse 100 H 12/10/22 10:45 Resp 20 12/10/22 10:50 BP 123/85 12/10/22 10:45 Pulse Ox 90 L 12/10/22 09:50 Time Spent Time spent with Patient: 55-74 minutes Time was spent: preparing to see the patient(eg.review tests), obtaining and/or reviewing separately otained hiistory, ordering medications,tests, procedures, referring, communicating with other health child care education coordinator, indepentently interpreting results, counseling the patient and care coordination
[2022-12-10 13:32] LABS: Troponin I < 50 ng/L (<or=60)
[2022-12-10 13:35] LABS: Lab Add On Test DONE
[2022-12-10 13:50] LABS: C-Reactive Protein 6.85 mg/dL (0.0-0.3)
[2022-12-10 13:50] LABS: Lactate 1.2 mmol/L (0.6-1.4)
[2022-12-10 14:03] LABS: Source Nasal/Nares
[2022-12-10 14:11] LABS: Procalcitonin < 0.1 ng/mL
[2022-12-10 14:37] LABS: COVID-19 PCR Negative (Negative)
[2022-12-10] MEDS: Albuterol/Ipratropium 3 ML UPD VIAL UPD ×2 (15:11→22:56)
--- NOTE | 2022-12-10 16:09 | NUR.NOTE ---
Nursing Note: Patient was given sips of mildly thickened water per MD order. Patient had a wet cough multiple times after the water, and didn't show good ability to swallow appropriately/safely. Notified Cynthia Higginbotham, devulcanizer charger, and she will notify Alma WALTERS. Medications held @ this time.
[2022-12-10] MEDS: Lactated Ringers 1,000 ML 150 ML IV (17:12)
[2022-12-10] MEDS: Ketorolac 15 MG/ML VIAL IVP (17:44)
[2022-12-10] MEDS: Heparin 5,000 UNITS/ML VIAL 5000 UNITS SC (17:45)
[2022-12-10] MEDS: Pantoprazole 40 MG VIAL IVP (18:31)
[2022-12-10] MEDS: Triamcinolone 0.1% CR 15 GM TUBE TP (19:24)
[2022-12-11] VITALS (14 sets, daily range): BP systolic 137–158; BP diastolic 70–93; PULSE 58–109; RESP 1–20; TEMP 36–36.8; O2SAT 92–95
[2022-12-11] MEDS: ACETAMINOPHEN 1,000 MG/100 ML BTL 400 MG IVPB (00:17)
[2022-12-11] MEDS: VANCOMYCIN/WATER (PEG) 1.25 GM/250 ML BAG IV ×2 (01:17→16:28)
[2022-12-11] MEDS: Heparin 5,000 UNITS/ML VIAL 5000 UNITS SC ×2 (01:24→17:58)
[2022-12-11] MEDS: PIPERACILLIN/TAZO 3.375 GM in Normal Saline 50 ML IVPB ×3 (03:16→21:45)
[2022-12-11] MEDS: Albuterol/Ipratropium 3 ML UPD VIAL UPD ×3 (03:33→21:50)
[2022-12-11] MEDS: Lactated Ringers 1,000 ML 75 ML IV (04:27)
[2022-12-11] MEDS: Triamcinolone 0.1% CR 15 GM TUBE TP ×2 (07:06→20:38)
[2022-12-11 07:08] LABS: Abs Immature Grans 0.02 10^3/uL (0.0-0.06); Absolute Basophil Count 0.04 10^3/uL (0.0-0.2); Absolute Eosinophil Count 0.04 10^3/uL (0.0-0.7); Absolute Lymphocyte Count 0.92 10^3/uL (1.2-3.4); Absolute Monocyte Count 0.43 10^3/uL (0.1-0.8); Basophils % 0.6; Eosinophils % 0.6; HCT 40.8 % (40.0-50.0); HGB 13.1 g/dL (13.5-17.5); Immature Grans % 0.3; Lymphocytes % 14.3; MCHC 32.1 % (32.0-36.0); MCV 100 fL (80-95); MPV 10.9 fL (8.0-11.0); Monocytes % 6.7; Neutrophils % 77.5; Platelet Count 201 10^3/uL (130-400); RDW 12.6 % (11.8-14.1); RDW-SD 46.8 fL; WBC 6.45 10^3/uL (4.4-10.8)
[2022-12-11 07:19] LABS: Anion Gap 14.1 mmol/L (3-11); BUN 36 mg/dL (7-18); CO2 21.9 mmol/L (21.0-32.0); Calcium 9.2 mg/dL (8.5-10.1); Chloride 120 mmol/L (98-107); Estimated GFR 78.49 (mL/min/1.73m2); Glucose 96 mg/dL (74-106); Magnesium 2.3 mg/dL (1.8-2.4); Potassium 3.4 mmol/L (3.5-5.1)
[2022-12-11 07:22] LABS: Lab Add On Test DONE
[2022-12-11 07:24] LABS: Sodium 156 mmol/L (136-145)
--- NOTE | 2022-12-11 07:28 | PDOC.CMIN ---
- If Service Date Differs Date of service: 12/11/22 Time of Service: 07:28 Care Management Initial Assess REASON FOR HOSPITALIZATION:: Aspiration Pneumonia, Acute Hypoxic Respiratory Failure. PAST MEDICAL HISTORY/PAST SURGICAL HISTORY:: All Active Problems: Discharge planning issues (Acute), DVT prophylaxis (Acute), Acute respiratory failure with hypoxia (Acute), Pneumonia (Acute),. Folate deficiency (Acute), B12 deficiency (Acute), Oropharyngeal dysphagia (Acute), [place] (acute kidney injury) (Acute), Sacral decubitus ulcer (Acute),. Indwelling Wilkerson catheter present (Acute), Advanced care planning/counseling discussion (Acute), Communication deficit (Acute),. Unable to walk (Acute), 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), Palliative care patient (Acute), Schizoaffective disorder (Acute), Sepsis (Acute), UTI (urinary tract infection) (Acute), and Pneumonia (Acute). Medical History: Atrial fibrillation, BPH (benign prostatic hyperplasia),. Chronic kidney disease, HTN (hypertension), Hx of hyperlipidemia, and. Parkinsons disease. PREVIOUS FUNCTIONAL STATUS/SOCIAL/FAMILY SUPPORTS:: Cesario resides at [facility]. He has Parkinson's disease and communicates in writing with a pen and paper, as he is unable to communicate verbally. Cesario requires assistance with his ADLs and all of his care. CURRENT FUNCTIONAL STATUS:: Cesario is lying in bed when CM comes to meet with him. He looks at CM when spoken to but does not respond at all and makes no attempt at grabbing the pen and paper when offered. CM will continue to follow. ADVANCE DIRECTIVES:: On file; brother Dougie Moralez is appointed as Health Care Agent. Has patient been provided with info about the portal/API?: No Did the patient sign up for the portal?: No CODE STATUS:: DNI INSURANCE COVERAGE / FINANCIAL ISSUES:: Medicare and Medicaid. CURRENT HOME/COMMUNITY SERVICES/EQUIPMENT:: Cesario resides at [facility]. PRIMARY CARE PHYSICIAN:: Henrik Mukherjee POTENTIAL DISCHARGE NEEDS:: Follow up appointments with PCP and pulmonology, transportation to [facility]. PATIENT/FAMILY EDUCATION NEEDS:: Review of discharge instructions including medications, limitations, follow up plan of care and Ask Me Three. TRANSPORTATION:: Via facility w/c van. PLAN:: Cesario will return to [facility] when medically cleared by provider. He will follow up with his PCP and plan of care as instructed. He will be transported via the facility's wheelchair van when ready. CM will continue to follow. Readmission - Within the Past 30 Days Yes or No: Y - Date of First Admission Date of 1st Admission: 11/24/22 - Date of this Admission Date of Admission: 12/10/22 This admission was: Through ED - Ask the Care Team Members: What do you think caused the patient to be readmitted: Patient has Parkinson's disease and has difficulty swallowing. He is on a pureed diet and a CT of his chest/abdomen reveals bibasilar inflitrates, in addition to bilateral thyroid nodules. Patient is febrile upon arrival in the ED and is believed to have aspiration pneumonia. - ED visits How many ED visits in the past 12 months: 2 - Assessment for Readmission Summary of readmission circumstances, based upon interviews: Patient is unfortunately experiencing a progression of Parkinson's disease. He has developed progressed dysphagia and is on a pureed diet. Imaging done in the ED reveals bibasilar infiltrates and debris in the trachea consistent with aspiration.
[2022-12-11] MEDS: POTASSIUM CHLORIDE 20 MEQ/100 ML BAG 35 MEQ IVPB (07:39)
[2022-12-11] MEDS: DEXTROSE 5%-WATER 1,000 ML 75 ML IV ×2 (07:39→21:44)
[2022-12-11 13:44] LABS: Anion Gap 11.6 mmol/L (3-11); BUN 32 mg/dL (7-18); CO2 22.4 mmol/L (21.0-32.0); CREATININE 0.9 mg/dL (0.70-1.30); Calcium 9.2 mg/dL (8.5-10.1); Chloride 120 mmol/L (98-107); Estimated GFR 89.07 (mL/min/1.73m2); Glucose 121 mg/dL (74-106); Potassium 3.7 mmol/L (3.5-5.1); Sodium 154 mmol/L (136-145)
--- NOTE | 2022-12-11 17:18 | PGE_ITS ---
Date of Service Date of service: 12/11/22 Time of Service: 09:00 Assessment and Plan Assessment and plan (1) Pneumonia: Status: Acute Assessment and plan: Aspiration PNA. MRSA screen negative. D/c vancomycin. Await pneumonia studies including strep/legionella/mycoplasma. NPO. I tried calling the brother to discuss NGT/feeding tube and was unable to get him on the phone. I left a voicemail. Speech eval - aspiration PNA felt to be most likely. Consider MBSS. Palliative care consulted to help with the decision on feeding tube. (2) Acute respiratory failure with hypoxia: Status: Resolved Assessment and plan: In setting of aspiration pneumonia + pneumonitis. As above (3) Hypernatremia: Status: Acute Assessment and plan: Due to dehydration/NPO status/dysphagia. On D5W at 75 cc/hr. Check sodiums Q6hrs. (4) Oropharyngeal dysphagia: Status: Acute Assessment and plan: NPO. Consider NGT. Speech therapy eval. Palliative care. I have requested ODT formulation of sinemet from the pharmacy. 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 As above. Feeding tube conversation above. (6) Atrial fibrillation: Assessment and plan: Holding oral meds. Has prn IV lopressor. Monitor on tele. Currently in NSR. It is unclear to me at this time what happened to apixaban that the [facility]. 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 Will need an outpatient ultrasound. (8) DVT prophylaxis: Status: Acute Assessment and plan: sc heparin (9) Discharge planning issues: Status: Acute Assessment and plan: DNI C/s PT, speech, palliative care, wound care. Tried calling brother and left a voicemail. Subjective Subjective Interval history since last seen: Mr Moralez is more alert today, but I still have a hard time understanding whether he says yes or no to my questions today. He is on RA. Exam Narrative Exam Narrative: General: Elderly male who is gargling on his secretions, moans in response to any of my questions HEENT: EOMI, dry MM Cardiovascular: RRR, no m/r/g Lungs: rales throughout B lung leon - ?resonating from upper airway gurgling sounds Gastrointestinal: soft, nontender, nondistended Genitourinary: has a ribeiro Extremities: no edema BLEs, 1+ pedal pulses B, no lesions B feet, no clubbing/cyanosis Objective Last Vital Signs Temp 36.8 C 12/11/22 15:45 Pulse 79 12/11/22 15:45 Resp 20 12/11/22 15:45 BP 158/78 H 12/11/22 15:45 Pulse Ox 93 12/11/22 15:45 Laboratory Results - last 24 hr 12/11/22 12/11/22 12/11/22 06:37 06:37 06:37 WBC 6.45 RBC 4.10 L Hgb 13.1 L D Hct 40.8 MCV 100 H MCH 32.0 MCHC 32.1 RDW 12.6 Plt Count 201 MPV 10.9 Immature Gran % 0.3 Neutrophils % 77.5 Lymphocytes % 14.3 Monocytes % 6.7 Eosinophils % 0.6 Basophils % 0.6 Nucleated RBC % 0.0 Absolute Neutrophils 5.00 Absolute Lymphocytes 0.92 L Absolute Monocytes 0.43 Absolute Eosinophils 0.04 Absolute Basophils 0.04 Sodium 156 H Potassium 3.4 L Chloride 120 H Carbon Dioxide 21.9 Anion Gap 14.1 H BUN 36 H Creatinine 1.0 Est GFR (CKD-EPI 2020) 78.49 Glucose 96 Calcium 9.2 Magnesium 2.3 C-Reactive Protein Add-On Test Request DONE 12/11/22 12/11/22 06:37 12:30 WBC RBC Hgb Hct MCV MCH MCHC RDW Plt Count MPV Immature Gran % Neutrophils % Lymphocytes % Monocytes % Eosinophils % Basophils % Nucleated RBC % Absolute Neutrophils Absolute Lymphocytes Absolute Monocytes Absolute Eosinophils Absolute Basophils Sodium 154 H Potassium 3.7 Chloride 120 H Carbon Dioxide 22.4 Anion Gap 11.6 H BUN 32 H Creatinine 0.9 Est GFR (CKD-EPI 2020) 89.07 Glucose 121 H Calcium 9.2 Magnesium C-Reactive Protein 3.30 H Add-On Test Request Time Spent with Patient Time Spent with Patient: 35-49 minutes Time was spent: preparing to see the patient(eg.review tests), obtaining and/or reviewing separately otained hiistory, ordering medications,tests, procedures, referring, communicating with other health child care development specialist, indepentently interpreting results, counseling the patient and care coordination
[2022-12-11] MEDS: Pantoprazole 40 MG VIAL IVP (17:58)
[2022-12-11 18:39] LABS: Anion Gap 8.6 mmol/L (3-11); BUN 29 mg/dL (7-18); CO2 22.4 mmol/L (21.0-32.0); CREATININE 0.9 mg/dL (0.70-1.30); Calcium 8.7 mg/dL (8.5-10.1); Chloride 121 mmol/L (98-107); Estimated GFR 89.07 (mL/min/1.73m2); Glucose 95 mg/dL (74-106); Potassium 3.4 mmol/L (3.5-5.1); Sodium 152 mmol/L (136-145)
[2022-12-11] MEDS: Normal Saline Flush 10 ML SYR IVP (21:50)
[2022-12-11] MEDS: Ketorolac 15 MG/ML VIAL IVP (21:50)
[2022-12-12] VITALS (12 sets, daily range): BP systolic 125–158; BP diastolic 83–91; PULSE 47–101; RESP 1–22; TEMP 36.2–37.2; O2SAT 93–99
[2022-12-12] MEDS: ACETAMINOPHEN 1,000 MG/100 ML BTL 400 MG IVPB (00:23)
[2022-12-12 00:32] LABS: Anion Gap 10.8 mmol/L (3-11); BUN 28 mg/dL (7-18); CO2 22.2 mmol/L (21.0-32.0); CREATININE 0.9 mg/dL (0.70-1.30); Chloride 119 mmol/L (98-107); Estimated GFR 89.07 (mL/min/1.73m2); Glucose 110 mg/dL (74-106); Potassium 3.1 mmol/L (3.5-5.1); Sodium 152 mmol/L (136-145)
[2022-12-12] MEDS: POTASSIUM CHLORIDE/D5-0.45NACL 1,000 ML 75 MEQ IV (01:10)
[2022-12-12] MEDS: Heparin 5,000 UNITS/ML VIAL 5000 UNITS SC ×3 (01:12→18:18)
[2022-12-12] MEDS: PIPERACILLIN/TAZO 3.375 GM in Normal Saline 50 ML IVPB ×4 (03:10→22:03)
[2022-12-12 05:03] LABS: Abs Immature Grans 0.02 10^3/uL (0.0-0.06); Absolute Basophil Count 0.06 10^3/uL (0.0-0.2); Absolute Eosinophil Count 0.17 10^3/uL (0.0-0.7); Absolute Lymphocyte Count 0.91 10^3/uL (1.2-3.4); Absolute Monocyte Count 0.45 10^3/uL (0.1-0.8); Absolute Neutrophil Count 3.83 10^3/uL (1.2-6.7); Basophils % 1.1; Eosinophils % 3.1; HGB 12.8 g/dL (13.5-17.5); Immature Grans % 0.4; Lymphocytes % 16.7; MCH 31.9 pg (27.0-33.0); MCV 100 fL (80-95); MPV 10.7 fL (8.0-11.0); Monocytes % 8.3; Neutrophils % 70.4; Platelet Count 184 10^3/uL (130-400); RBC 4.01 10^6/uL (4.36-5.78); RDW 12.4 % (11.8-14.1); RDW-SD 45.9 fL; WBC 5.44 10^3/uL (4.4-10.8)
[2022-12-12 05:13] LABS: Anion Gap 12.1 mmol/L (3-11); BUN 27 mg/dL (7-18); CO2 21.9 mmol/L (21.0-32.0); CREATININE 0.9 mg/dL (0.70-1.30); Chloride 118 mmol/L (98-107); Estimated GFR 89.07 (mL/min/1.73m2); Glucose 116 mg/dL (74-106); Potassium 3.2 mmol/L (3.5-5.1); Sodium 152 mmol/L (136-145)
[2022-12-12 05:18] LABS: Vancomycin, Trough 14.3 ug/mL (10.0-20.0)
[2022-12-12 05:26] LABS: C-Reactive Protein 2.02 mg/dL (0.0-0.3)
--- NOTE | 2022-12-12 07:48 | PT.INIE ---
Date of service: 12/11/22 Time of Service: 11:20 PT Notes Visit Reasons: Aspiration Pneumonia, Acute Hypoxic Respiratory Fa Physical Therapy Inpatient Initial Evaluation Date: 12/11/22 Referring Doctor: Danita Marquez MD PT Orders: PT CONSULT: Limited ability Precautions: Fall. Standard. Dysphagia. Patient Profile/Admitting Diagnosis: Cesario is a 77 yo male that presented to the ER on 12/10/22 from rehab facility with fever, altered mental status, and possible aspiration. Also found to have sacral decubitous ulcer. PMHX: See EMR Social History/Home Situation: Currently residing at rehab facility. Equipment Owned/DME: Subjective: Cleared by nursing to see patient and patient is agreeable to PT. Patient is resting in bed at time of consult and connected to telemetry, IV, and ribeiro catheter. Objective: General Observation: Patient alert, poor responsiveness due to condition Mental Status: Unsure of alertness. Pain: None indicated ROM: Right Upper Extremity: Shoulder Flexion impaired. Shoulder abduction impaired. Elbow flexion WFL. Wrist flexion WFL. Opening and closing of hand WFL. Left Upper Extremity: Shoulder Flexion impaired. Shoulder abduction impaired. Elbow flexion WFL. Wrist flexion WFL. Opening and closing of hand WFL. Right Lower Extremity: Hip flexion impaired. Hip abduction impaired. Knee flexion impaired. Ankle dorsiflexion impaired. Ankle plantarflexion WFL. Left Lower Extremity: Hip flexion impaired. Hip abduction impaired. Knee flexion impaired. Ankle dorsiflexion impaired. Ankle plantarflexion WFL. Strength: Right Upper Extremity: Shoulder flexors 2/5. Shoulder abductors 2/5. Elbow flexors 5/5. Elbow extensors 4/5. Wood Flooring Specialist strong. Left Upper Extremity: Shoulder flexors 2/5. Shoulder abductors 2/5. Elbow flexors 5/5. Elbow extensors 4/5. Wood Flooring Specialist strong. Right Lower Extremity: Hip flexors 2-/5. Knee flexors 3/5. Knee extensors 3/5. Ankle dorsiflexors 2/5. Ankle plantarflexors 5/5. Left Lower Extremity: Hip flexors 2-/5. Knee flexors 3/5. Knee extensors 3/5. Ankle dorsiflexors 2/5. Ankle plantarflexors 5/5. Sensation: Intact as to pain and pressure on bilateral lower extremities. Bed Mobility/Transfers: Rollin person Max A Supine to sit: 2 person Max A Sit to supine: 2 person Max A Gait: Unable Balance: Static Sitting: Fair, leans left Dynamic Sitting: Poor Static Standing: Unable Dynamic Standing: Unable Special Tests: Mobility Limitations Standardized Measure [facility] AM-PAC 6 clicks Basic Mobility Inpatient Short Form: Raw Score: 6 CMS Score: 100% Informed Consent/Education: Patient instructed in purpose of PT consult and plan of care. Assessment: Patient presents with clinical signs and symptoms consistent with current/admitting diagnoses that have resulted to mobility limitations, gait instability, generalized weakness, and impairment of motor control as demonstrated by the following impairment level findings: 1. Decreased strength to major muscle groups 2. Impaired sitting/standing balance 3. Impaired activity tolerance 4. Limitation of joint range of motion in shoulders and hips Impairments are contributing to the following functional limitations: 1. Dependent bed mobility skills 2. Dependent with transfers 3. Dependent for ADL performance Patient is assessed as a High complexity based on the following: History: 77 year old male with impairment level findings, functional limitations, and past medical history as indicated above Examination: Demonstrable impairment in strength, balance, and mobility level with underlying impairments and functional limitations as documented above Presentation: Evolving Decision Making: High complexity Goals: Goals x1 week 1. Supine-Sit: Min A 2. Sit-Supine: Min A 3. Sit-Stand: Min A with stedy lift 4. Stand-Sit: Min A with stedy lift 5. Good static and dynamic sitting balance Plan of Care/Treatment Plan: 1-2x/day, 7 days/week x1 week. Plan of care has been reviewed with the BALLISTIC EXPERT providing the service under Physical Therapy direction. Initiate Physical Therapy intervention for strengthening, bed mobility, transfers, gait, stairs, balance training, and use of assistive device. Discharge Plan DISCHARGE RECOMMENDATIONS: SNF for continued rehabilitation TREATMENT CODE/TIME: 11:20-11:37 (17 minutes), [id number] Thank you for the opportunity to participate in the care of this patient. Yelitza Keenan, PT, DPT, OCS [facility] [place], [place]
[2022-12-12] MEDS: Triamcinolone 0.1% CR 15 GM TUBE TP ×2 (08:43→20:17)
--- NOTE | 2022-12-12 09:27 | PDOC.CMPRO ---
- If Service Date Differs Date of service: 12/12/22 Time of Service: 09:27 Care Management Progress Note S/O: Cesario was lying in bed when CM met with him. He appeared to be sleeping with his eyes closed and easily woke up when CM started talking with him. Shyla from was just finishing her assessment and was pleased with how well he did with the communication board. He was able to answer yes/no questions using the communication board and when asked about getting a feeding tube he answered no, but later in the conversation he answered yes to getting a feeding tube. CM asked Cesario if he would like to discuss options further with the doctor and his answer was yes. A Palliative care meeting is planned for tomorrow and both Cesario and Palliative would like his brother to join. DANA LMOM for Sesar and is awaiting a return call. CM will continue to follow. A: 77 year old male admitted to [facility] on 12/10/22 for Aspiration Pneumonia, Acute Hypoxic Respiratory Failure. P: Cesario will return to [facility] when medically cleared by provider. He will follow up with his PCP and plan of care as instructed. He will be transported via the facility's wheelchair van when ready. CM will continue to follow.
[2022-12-12] MEDS: Albuterol/Ipratropium 3 ML UPD VIAL UPD ×3 (10:30→23:45)
--- NOTE | 2022-12-12 10:40 | W.NUTCONSULT ---
Date of service: 12/12/22 Time of Service: 10:40 Nutritional Consult ASSESSMENT: [facility] aspiration PNA, acute respiratory failure with hypoxia. Sacral ulceration noted, not staged. Multiple medical conditions including Oropharyngeal dysphagia, Parkinsonism. NPO. tube feeding may be considered At high nutritional risk in view of increased nutrient needs to heal sacral wound. Estimated Needs: BEE using adjusted body weight : 1460 x 1.2 AF = 1756 kcal, 98 g protein (1.3 x ABW), 1800 ml fluid [employer] consult pending INTERVENTION: Advance diet per [employer] recommendation, supplement with 1 oz liquid protein TID, MVI, 500 mg Vit C BID, 220 mg zinc sulfate x 14 days If unable to initiate diet and tube feeding desired - would recommend : Osmolite 1.5 @ 50cc/hour , flush 250 ml q 6 hours providing total of 1800 kcal, 75 g protein, 1900 ml fluid. Add 2 oz liquid protein into enteral feeding providing an additional 120 kcal, 30 grams protein to aid in wound healing. MONITORING AND EVALUATION: weight, labs Time Spent in Nutritional Counseling and Treatment: 0
--- NOTE | 2022-12-12 12:08 | PT.INTREAT ---
Date of service: 12/12/22 Time of Service: 09:20 PT Notes Visit Reasons: Aspiration Pneumonia, Acute Hypoxic Respiratory Fa Inpatient Physical Therapy Treatment Note [facility] Date: 12/12/2022 PRECAUTIONS: Activity as tolerated SUBJECTIVE: Cesario is pleasant and indicates that he is agreeable to participating in PT. Patient is very limited in verbal communications, at this time, he is only able to verbally communicate with grunting. OBJECTIVE: PAIN: No c/o pain BED MOBILITY/TRANSFERS Supine-sit: Mod A Sit-supine: Max A x2 Sit-stand: Mod A x2 with use of STEDY Stand-sit: CGA with use of STEDY and cueing for safety Chair-bed: STEDY with SBA GAIT: Not assessed THEREX: Patient was instructed in several LE exercises designed to promote ROM, completed while sitting at EOB with two person support in a.m., to include: knee extension and hip flexion. Patient tolerated limited reps with each exercise. In p.m., patient was instructed in modified [id number] in STEDY, as well as cervical flexion/extension and rotation while in STEDY. Patient was also instructed in seated LAQ, hip flexion and hip abduction exercises. He requires assist with all exercises to reach maximum ROM. ASSESSMENT: Patient demonstrates limited activity tolerance and global weakness. Patient was not able to achieve full standing position, demonstrating inability to fully extend knees and hips. PLAN: Continue with transfer training and global strengthening for improved mobility. TREATMENT CODE/TIME: Session 1: 14 minutes; [id number] (09:20) Session 2: 26 minutes; [id number], [id number] (14:14)
[2022-12-12 12:41] LABS: Anion Gap 9.8 mmol/L (3-11); BUN 24 mg/dL (7-18); CO2 23.2 mmol/L (21.0-32.0); CREATININE 0.9 mg/dL (0.70-1.30); Calcium 9.1 mg/dL (8.5-10.1); Chloride 117 mmol/L (98-107); Estimated GFR 89.07 (mL/min/1.73m2); Glucose 125 mg/dL (74-106); Potassium 3.5 mmol/L (3.5-5.1); Sodium 150 mmol/L (136-145)
--- NOTE | 2022-12-12 16:08 | NUR.NOTE ---
Nursing Note: Administered Carbidopa-Levodopa rapid dissolving tablet at physician's urging w/ assistance of Shyla from speech therapy to assist and assess. Medication administered sublingual and pt monitored for complications. Medication turned to paste and required suctioning after pt unable to safely swallow or manipulate with tongue to dissolve. See speech therapy report for details. Charge nurse notified.
[2022-12-12] MEDS: DEXTROSE 5%-WATER 1,000 ML 75 ML IV (16:24)
[2022-12-12] MEDS: Pantoprazole 40 MG VIAL IVP (18:18)
[2022-12-12 18:30] LABS: Anion Gap 11.1 mmol/L (3-11); BUN 23 mg/dL (7-18); CO2 21.9 mmol/L (21.0-32.0); CREATININE 0.8 mg/dL (0.70-1.30); Calcium 9.2 mg/dL (8.5-10.1); Chloride 117 mmol/L (98-107); Estimated GFR 92.29 (mL/min/1.73m2); Glucose 124 mg/dL (74-106); Potassium 3.1 mmol/L (3.5-5.1); Sodium 150 mmol/L (136-145)
--- NOTE | 2022-12-12 18:35 | PGE_ITS ---
Date of Service Date of service: 12/12/22 Time of Service: 18:35 Assessment and Plan Assessment and plan (1) Pneumonia: Status: Acute Assessment and plan: Aspiration PNA. MRSA screen negative. NPO until recommendations from speech therapy are available Discussed with palliative: will see the patient tomorrow. Consider MBSS. (2) Acute respiratory failure with hypoxia: Status: Resolved Assessment and plan: In setting of aspiration pneumonia + pneumonitis. As above (3) Hypernatremia: Status: Acute Assessment and plan: Due to dehydration/NPO status/dysphagia. Improving. On D5W at 75 cc/hr. Check sodiums Q6hrs. (4) Oropharyngeal dysphagia: Status: Acute Assessment and plan: NPO. Await speech therapy eval recommendations. Palliative care will see the patient tomorrow. Evidently nursing at the [place] [facility] had concerns that the patient may not in fact want the NGT. I have requested ODT formulation of sinemet from the pharmacy. 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 As above. Feeding tube conversation above. Neurology is consulted. (6) Atrial fibrillation: Assessment and plan: Holding oral meds. Has prn IV lopressor. Monitor on tele. Currently in NSR. It is unclear to me at this time what happened to apixaban that the [facility] got [facility]. 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 Will need an outpatient ultrasound. (8) DVT prophylaxis: Status: Acute Assessment and plan: sc heparin (9) Discharge planning issues: Status: Acute Assessment and plan: DNI C/s PT, speech, palliative care, wound care. Subjective Subjective Interval history since last seen: Mr Moralez is moaning in response to my questions and I again do not know what he means. He was evaluated by speech therapy whose recommendations are pending at this time. Exam Narrative Exam Narrative: General: Elderly male who is gargling on his secretions, moans in response to any of my questions HEENT: EOMI, MMM Cardiovascular: RRR, no m/r/g Lungs: rales throughout B lung leon - ?resonating from upper airway gurgling sounds Gastrointestinal: soft, nontender, nondistended Genitourinary: has a ribeiro Extremities: no edema BLEs, 1+ pedal pulses B, no lesions B feet, no clubbing/cyanosis Objective Last Vital Signs Temp 36.7 C 12/12/22 15:55 Pulse 100 H 12/12/22 16:07 Resp 20 12/12/22 15:55 BP 127/85 12/12/22 15:55 Pulse Ox 99 12/12/22 15:55 Laboratory Results - last 24 hr 12/11/22 12/12/22 12/12/22 18:13 00:17 04:55 WBC RBC Hgb Hct MCV MCH MCHC RDW Plt Count MPV Immature Gran % Neutrophils % Lymphocytes % Monocytes % Eosinophils % Basophils % Nucleated RBC % Absolute Neutrophils Absolute Lymphocytes Absolute Monocytes Absolute Eosinophils Absolute Basophils Sodium 152 H 152 H Potassium 3.4 L 3.1 L Chloride 121 H 119 H Carbon Dioxide 22.4 22.2 Anion Gap 8.6 10.8 BUN 29 H 28 H Creatinine 0.9 0.9 Est GFR (CKD-EPI 2020) 89.07 89.07 Glucose 95 110 H Calcium 8.7 9.0 Magnesium C-Reactive Protein Vancomycin Trough 14.3 12/12/22 12/12/22 12/12/22 04:55 04:55 12:15 WBC 5.44 RBC 4.01 L Hgb 12.8 L Hct 40.0 MCV 100 H MCH 31.9 MCHC 32.0 RDW 12.4 Plt Count 184 MPV 10.7 Immature Gran % 0.4 Neutrophils % 70.4 Lymphocytes % 16.7 Monocytes % 8.3 Eosinophils % 3.1 Basophils % 1.1 Nucleated RBC % 0.0 Absolute Neutrophils 3.83 Absolute Lymphocytes 0.91 L Absolute Monocytes 0.45 Absolute Eosinophils 0.17 Absolute Basophils 0.06 Sodium 152 H 150 H Potassium 3.2 L 3.5 Chloride 118 H 117 H Carbon Dioxide 21.9 23.2 Anion Gap 12.1 H 9.8 BUN 27 H 24 H Creatinine 0.9 0.9 Est GFR (CKD-EPI 2020) 89.07 89.07 Glucose 116 H 125 H Calcium 9.0 9.1 Magnesium 2.0 C-Reactive Protein 2.02 H Vancomycin Trough 12/12/22 18:16 WBC RBC Hgb Hct MCV MCH MCHC RDW Plt Count MPV Immature Gran % Neutrophils % Lymphocytes % Monocytes % Eosinophils % Basophils % Nucleated RBC % Absolute Neutrophils Absolute Lymphocytes Absolute Monocytes Absolute Eosinophils Absolute Basophils Sodium 150 H Potassium 3.1 L Chloride 117 H Carbon Dioxide 21.9 Anion Gap 11.1 H BUN 23 H Creatinine 0.8 Est GFR (CKD-EPI 2020) 92.29 Glucose 124 H Calcium 9.2 Magnesium C-Reactive Protein Vancomycin Trough Time Spent with Patient Time Spent with Patient: 25-34 minutes Time was spent: preparing to see the patient(eg.review tests), obtaining and/or reviewing separately otained hiistory, ordering medications,tests, procedures, referring, communicating with other health residential care officer, indepentently interpreting results, counseling the patient and care coordination
--- NOTE | 2022-12-12 18:49 | W.SPSTE ---
Date of service: 12/12/22 Time of Service: 11:43 Subjective Pt lying 45 degrees in bed at initiation of encounter. Audible gurgling and congested, weak cough often produced as vocalizations only with no glottal coup was noted at baseline. Pt NPO. Pt was able to indicate on communication board that he was tired and wanted to lie down at the end of the visit with physical cues i.e., tapping on pt's hand to remind him to point. He also pointed to yes/no responses. Objective Objective Pt was readmitted to ED on 12/10/22 for new fever and cough suspected to be r/t aspiration. Pt was seen by this TAPPER BALANCE WHEEL SCREW HOLE during last admission a few weeks ago, at which time he was tolerating a pureed diet with nectar thick liquids. TAPPER BALANCE WHEEL SCREW HOLE spoke with Carla from nursing at [facility], who reported that patient has had increasing difficulty managing oral intake. The facility tried honey and pudding thick liquids with no success. Carla stated that on three separate occasions, staff witnessed pt's brother feeding pt with HOB too far back, holding pt's mouth shut until he swallowed. Carla stated pt does not desire a feeding tube but his brother does. This will need to be investigated further with palliative care. Attempted to ask pt yes/no question re: feeding tube with nursing piano case and bench assembler today and received contradicting answers today. Nursing at [facility] reported to TAPPER BALANCE WHEEL SCREW HOLE that pt was unable to take Sinemet sublingual tablet today- required suctioning. Pt was responsive to commands and was cooperative to allow TAPPER BALANCE WHEEL SCREW HOLE to perform thorough and aggressive oral care today. Oral cavity noted to be extremely dry and irritated, with more cuts and abrasions compared to last admission. Soft palate was also aggravated-looking. After oral care was completed with soft-bristled toothbrush to remove dry, encrusted material between teeth and oral swab suction kit, pt appeared more alert. He was provided with ice chips and 1/2 tsp thin water boluses. Pt did not initiate pharyngeal swallow without cues, the only exception being when he was given an ice chip large enough to chew. At times, he still required verbal cues for complete swallow. Smaller ice chips were held on mid lingual blade. Nursing re-attempted sublingual sinemet with TAPPER BALANCE WHEEL SCREW HOLE present. Pt held tablet in place but was again unable to initiate a swallow to clear saliva/broken down pill residue. TAPPER BALANCE WHEEL SCREW HOLE attempted multiple liquid washes with water, increasing bolus viscosity with pureed boluses, and max verbal and tactile cues, but ultimately, all of this material needed to be suctioned from oral cavity. Assessment At this time, pt remains unsafe for an oral diet. He has moderate to severe oropharyngeal dysphagia due to progression of degenerative condition and poor oral status, and his likelihood of future hospital readmissions from swallowing-related pulmonary complications is high. Recommendations: Handouts detailing aspiration pneumonia, aspiration precautions, and oral care considerations were left in pt's room for family to review. TAPPER BALANCE WHEEL SCREW HOLE also provided education to JAMIE Donato, regarding proper oral care sequence/frequency. At this time, recommend large ice chips requiring chewing one at a time and small spoon sips of water ONLY following thorough oral care. Oral care and subsequent PO offerings should be provided q2hr. Non-oral medications only. 1:1 supervision to ensure swallow initiation and provide oral suctioning if pt holds bolus in mouth longer than 30 seconds or begins coughing prior to 30 seconds. Verbally prompt pt to swallow as needed and ensure mouth is clear before offering another ice chip or spoonful of water. Plan TAPPER BALANCE WHEEL SCREW HOLE plans to attempt re-visit later today; will f/u via phone tomorrow (no on-site TAPPER BALANCE WHEEL SCREW HOLE available T/ this week) and in-person on Monday. Will cautiously initiate oral diet if/when pharyngeal swallow initiation improves. MBSS recommended when administering therapist is back on site. Jail Goals: Pt will tolerate least restrictive diet with <10% overt s/sx aspiration/penetration. Short Term Goals: Pt will tolerate PO trials of liquids and solids as evidenced by bolus holding in no more than 25% of trials. Coding Diagnoses
--- NOTE | 2022-12-12 19:25 | W.SPSTP ---
Date of service: 12/12/22 Time of Service: 16:15 Subjective Pt sitting in recliner, leaning on R side. Nursing bringing pt cup of ice chips when FLESHING MACHINE OPERATOR arrived. Informed of need to suction sinemet from oral cavity ealier today. Brother and [id number] were visiting. MAYANK stated she looked over the swallowing handouts FLESHING MACHINE OPERATOR left at bedside earlier. She did not have any questions. Both parties reported pt was clearly asking for ice/water. RT came in to provide nebulizer treatment and FLESHING MACHINE OPERATOR returned after treatment was completed. Objective/Assessment/Plan Objective Treatment Techniques & Outcomes: FLESHING MACHINE OPERATOR assisted pt into 90 degree position. PO trials of ice chips and thin water by spoon/cup were administered, as well as puree (chocolate pudding per brother's request). FLESHING MACHINE OPERATOR taped recommendations from initial eval, including full oral care protocol, to wall by pt's whiteboard. Pt was observed picking up cup of water himself and drinking consecutive, large swallows despite cues for single sips. This resulted in overt s/sx aspiration i.e., weak cough c/b by vocalization only. Nursing was advised to place cups out of pt's reach. Pt unable to clear oral cavity of pudding residue. L buccal cavity and inferior labial sulcus was filled with thickened saliva which required suctioning. Continues with inconsistent ability to independently initiate pharyngeal swallow with thin liquids by spoon and ice chips. Patient/Caregiver/Staff Education: Family stated they would like to bring in snacks for pt. FLESHING MACHINE OPERATOR encouraged no oral intake except for ice chips and water by spoon. FLESHING MACHINE OPERATOR also encouraged family to refrain from providing these items and allow staff to do so, so that suctioning equipment can be on standby. Family was educated on importance of oral care in pulmonary risk reduction. Assessment Continued moderate to severe oropharyngeal dysphagia. Plan Plan: FLESHING MACHINE OPERATOR will continue to follow. ST will be available by phone tomorrow and back on-site on Monday. MBSS highly recommended when administering FLESHING MACHINE OPERATOR is available. Recommendations Diet: NPO Liquids: NPO Other: large ice chips requiring chewing one at a time and small spoon sips of water ONLY following thorough oral care. Oral care and subsequent PO offerings should be provided q2hr. Non-oral medications only. 1:1 supervision to ensure swallow initiation and provide oral suctioning if pt holds bolus in mouth longer than 30 seconds or begins coughing prior to 30 seconds. Verbally prompt pt to swallow as needed and ensure mouth is clear before offering another ice chip or spoonful of water Strategies/Adaptions: Upright and out of bed in a chair for all meals/snacks, Use supports to ensure upright/midline posture, Small sips (1/4-1/2 tsp water), No straws, Liquids via of tsp only, Check oral cavity frequently, Feed in low-stimulation environment and Other Supervision: Direct supervision via of [facility] staff, assist w/feeding Total Time Spent: 36 minutes Coding Diagnoses
[2022-12-12 23:14] LABS: Legionella Ag Detection Urine Negative (Negative)
[2022-12-13] VITALS (13 sets, daily range): BP systolic 117–130; BP diastolic 69–85; PULSE 42–79; RESP 3–20; TEMP 36.3–36.9; O2SAT 94–99
--- NOTE | 2022-12-13 | DI.RAD_ITS ---
Exam(s) XR ABDOMEN FLAT PLATE EXAM: XR ABDOMEN FLAT PLATE CLINICAL HISTORY: confirm NGT placement. TECHNIQUE: 2D digital imaging was performed. COMPARISON: CT CT CHEST/ABD/PEL W from 12/10/2022 FINDINGS: Two views: There is an NG tube in the stomach. There stomach is not distended and there are aortic filled but n ondilated small bowel loops as well as transverse colon. There appears to be some infiltrate in the right lung base. IMPRESSION: NG tube is coiled in the stomach. It appears to be in the gastric fundus region. The stomach is not distended. Small bowel loops do not appear to be distended. DATA REPOSITORY: RADIATION DOSE DELIVERED:
[2022-12-13 00:41] LABS: Anion Gap 11.7 mmol/L (3-11); BUN 21 mg/dL (7-18); CO2 22.3 mmol/L (21.0-32.0); CREATININE 0.9 mg/dL (0.70-1.30); Calcium 9.1 mg/dL (8.5-10.1); Chloride 116 mmol/L (98-107); Estimated GFR 89.07 (mL/min/1.73m2); Glucose 102 mg/dL (74-106); Sodium 150 mmol/L (136-145)
[2022-12-13 00:46] LABS: Potassium 2.8 mmol/L (3.5-5.1)
[2022-12-13] MEDS: POTASSIUM CHLORIDE/D5-0.45NACL 1,000 ML 75 MEQ IV (01:31)
[2022-12-13] MEDS: Heparin 5,000 UNITS/ML VIAL 5000 UNITS SC ×3 (01:46→17:30)
[2022-12-13] MEDS: Scopolamine 1 MG/3 DAYS PATCH TD (01:46)
[2022-12-13] MEDS: Albuterol/Ipratropium 3 ML UPD VIAL UPD ×4 (03:44→22:44)
[2022-12-13] MEDS: Normal Saline Flush 10 ML SYR IVP (03:44)
[2022-12-13] MEDS: PIPERACILLIN/TAZO 3.375 GM in Normal Saline 50 ML IVPB ×3 (03:45→17:30)
[2022-12-13] MEDS: Normal Saline 500 ML 30 ML IV (03:46)
[2022-12-13 06:28] LABS: Abs Immature Grans 0.03 10^3/uL (0.0-0.06); Absolute Basophil Count 0.03 10^3/uL (0.0-0.2); Absolute Eosinophil Count 0.12 10^3/uL (0.0-0.7); Absolute Lymphocyte Count 0.88 10^3/uL (1.2-3.4); Absolute Monocyte Count 0.34 10^3/uL (0.1-0.8); Absolute Neutrophil Count 2.87 10^3/uL (1.2-6.7); Basophils % 0.7; Eosinophils % 2.8; HGB 12.4 g/dL (13.5-17.5); Immature Grans % 0.7; Lymphocytes % 20.6; MCH 31.2 pg (27.0-33.0); MCHC 31.8 % (32.0-36.0); MCV 98 fL (80-95); Neutrophils % 67.2; Platelet Count 163 10^3/uL (130-400); RBC 3.97 10^6/uL (4.36-5.78); RDW 12.5 % (11.8-14.1); RDW-SD 45.8 fL; WBC 4.27 10^3/uL (4.4-10.8)
[2022-12-13 06:43] LABS: Anion Gap 10.1 mmol/L (3-11); BUN 20 mg/dL (7-18); CO2 23.9 mmol/L (21.0-32.0); CREATININE 0.8 mg/dL (0.70-1.30); Chloride 117 mmol/L (98-107); Estimated GFR 92.29 (mL/min/1.73m2); Glucose 119 mg/dL (74-106); Sodium 151 mmol/L (136-145)
[2022-12-13 06:50] LABS: Potassium 2.9 mmol/L (3.5-5.1)
[2022-12-13 07:19] LABS: Procalcitonin < 0.1 ng/mL
--- NOTE | 2022-12-13 07:47 | PT.INTREAT ---
Date of service: 12/13/22 Time of Service: 07:07 PT Notes Visit Reasons: Aspiration Pneumonia, Acute Hypoxic Respiratory Fa Inpatient Physical Therapy Treatment Note [facility] Date: 12/13/2022 PRECAUTIONS: Activity as tolerated, lift only SUBJECTIVE: Cesario is pleasant and indicates that he is agreeable to participating in PT. Patient is very limited in verbal communications, at this time, he is only able to verbally communicate with yes and no, as well as physical gestures, such as pointing. OBJECTIVE: PAIN: No c/o pain BED MOBILITY/TRANSFERS Supine-sit: Min A - Mod A Sit-stand: Mod A x2 with use of STEDY Stand-sit: CGA with use of STEDY and cueing for safety Bed-chair: STEDY with SBA GAIT: Not assessed THEREX: Patient was instructed in several LE exercises designed to promote ROM, completed in a seated position, to include: LAQ, hip abduction, and hip flexion, as well as cervical flexion/extension and rotation. Patient tolerated 10 reps with each exercise. ASSESSMENT: Patient demonstrates limited activity tolerance and global weakness. Patient was not able to achieve full standing position, demonstrating inability to fully extend knees and hips. He continues require Mod A for [id number] with STEDY due to B LE weakness. PLAN: Continue with transfer training and global strengthening for improved mobility. TREATMENT CODE/TIME: 28 minutes; [id number], [id number] (07:07)
--- NOTE | 2022-12-13 08:50 | PDOC.CMPRO ---
- If Service Date Differs Date of service: 12/13/22 Time of Service: 08:51 Care Management Progress Note S/O: Cesario is lying in bed and appears to be sleeping soundly. CM did not wake him considering he just had a feeding tube placed. Prior to insertion, Dr. Marquez consulted with Dr. Smith from Palliative to ensure that Cesario's goals of care are inline with a feeding tube. Both Cesario and his brother Sesar opted to precede with the feeding tube. CM spoke with Sesar who is in complete support of a feeding tube. He has no questions or concerns at this time and is hoping nutrition will help him return closer to his functional ability prior to this admission. A: 77 year old male admitted to [facility] on 12/10/22 for Aspiration Pneumonia, Acute Hypoxic Respiratory Failure. P: Cesario will return to [facility] when medically cleared by provider. He will follow up with his PCP and plan of care as instructed. He will be transported via the facility's wheelchair van when ready. CM will continue to follow.
--- NOTE | 2022-12-13 11:22 | PCNE_ITS ---
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 He has been followed by palliative care team during his last hospital admission and was last seen at SNF 5 days ago. At that time staff and family reported progression of his dysphagia to the point that he was unable to take whole pills and was taking in only 25 to 50% of meals. 3 days ago he developed a fever to 101.5 and was found to have aspiration pneumonia. Readmitted to [facility] and started on antibiotics. He was evaluated again in the hospital by speech-language pathologist. They noted worsening of his ability to swallow and at this point unable to safely swallow pills or even ice chips and he was made NPO. At this point options for Mr. Moralez are either placing a feeding tube for nutrition hydration and to try to reduce risk of aspiration versus transitioning to comfort care only with careful hand feeding as desired. We had actually begun this discussion last week during my SNF visit. At that point brothe Sesar, sister and [id number] were strongly in favor of having a feeding tube placed. They felt he was uncomfortable from thirst and hunger. I only had a chance to briefly talk alone with Cesario. Using a point board for yes and no answers (which appears to be reliable) he did share that he was?both hungry and thirsty. He denied pain or discomfort. He felt that life was still worth living and he wanted to continue to live. When I asked him about a feeding tube, he said he would do what ever brother Sesar wanted him to do. Today's visit revolved primarily around further exploring feeding tubes: Risks and benefits, alternatives, possible complications, as well as what feeding tubes do not do. I initially was able to meet alone with Cesario in the room. Using a communication board I first tested that he understood what I was saying. He was able to follow simple one-step directions (lift your right arm, lift your left arm, pointing at various images on communication board). I explained to him the risks and benefits, alternatives, possible complications of feeding tubes. We discussed the actual procedure and some risks involved with having it placed. That he would need to have an NG tube in for short amount of time before hand. Feeding tubes do not eliminate risk of aspiration in people with significant dysphagia. At least initially we would ask him not to try to take anything in by mouth. Going forward, he could work with speech therapist, probably have a modified barium swallow done and see if maybe he could resume ice chips. Capacity: Very difficult to determine exact capacity with Cesario due to his communication issues. He definitely does better with his glasses on (brother Sesar had to go back to SNF to retrieve them). However his answers to questions are consistent and he seems to understand consequences at least 2 simple decisions. I felt the best way to go forward was discussed separately with the patient and then again with his healthcare agent brothlenny Kaba. Cesario communicated the following when his brother was not in the room: -On 5 square scale (ranging from definitely do not want feeding tube, probably want feeding tube, not sure, probably want feeding tube, definitely want feeding tube), he repeatedly over approximately 30 minutes consistently chose probably want a feeding tube -He is very upset about not being able to take anything by mouth. He would want to resume ice chips and even small tastes on the tongue of desired foods and drinks, even if there was some increased risk of aspiration. Given this situation, I think it is reasonable, but would like Cesario, his family and the speech and language team to discuss this to use really sort out the risks. -We did not seem that upset about not getting his medications, but staff is concerned that he may have increase in Parkinson symptoms because of this. I worry about him not getting his psychiatric medications, as this has led to worsening of his mental health symptoms in the past. Brother Sesar, healthcare agent also feels that feeding tube is the way to go. He has discussed with Cesario and Cesario does not feel he is in any pain or discomfort, does not feel burdened by his current disability. He does know that Cesario would like to continue to drink ice and water. I also discussed with Sesar risks benefits, alternatives, potential side effects and complications of a feeding tube. I was also requested by speech and language team to introduce handouts on 1.aspiration pneumonia 2.oral hygiene and 3.aspiration precautions that they left last night. Sesar was eager to receive them. It will be important to repeat emphasized and review this with family members (including sister Kang and [id number]) repeatedly.. Assessment and Plan Assessment and plan (1) Palliative care patient: Status: Acute (2) Parkinsonism due to drugs: Status: Acute Assessment and plan: Reviewed with family and patient today that overall he has a progressive neurological disorder. Even if feeding tube is placed, unfortunately he will continue to lose motor function and aspiration will continue on some level. Presented that family and palliative care team will keep on checking back on quality of life for Cesario. At any point should we believe that he is suffering, needs to reevaluate goals of care. (3) Aspiration pneumonia: Status: Acute (4) Dysphagia: Status: Acute Assessment and plan: See extensive discussion above. Both the patient (who appears to have some level of decision making capacity) and healthcare agent brother Sesar requesting to proceed with placement of feeding tube. (5) Advanced care planning/counseling discussion: Status: Acute Assessment and plan: There has been some confusion over CODE STATUS. Missing link is new COLST form completed at [facility] on December 06, 2022 with family, patient and SNF medical provider ALLEY Obrien. At that time family and patient concurred that they wanted him to be a DNR/DNI but continue to transfer and treat. I reviewed with patient and healthcare agent brother Sesar and this is still what they want. As of this morning this 10/05/2023 document is now scanned in to the [facility] medical record and I have updated his CODE STATUS. (6) Oropharyngeal dysphagia: Status: Acute (7) Communication deficit: Status: Acute Assessment and plan: Communication boards were in the room today. Patient needs to be prompted to use them but is using them quite well. I encouraged family to use the communication boards with him. Staff is ready doing so. Also helps if he is wearing his glasses (Cesario says this himself and I observed this) (8) Sacral decubitus ulcer: Status: Acute Assessment and plan: -With near bed be appropriate and is he eligible? -Physical therapy at [facility] had fitted him with offloading special wheelchair pillow. Hospital staff could ask that family bring it over. [facility] All Active Problems (Updated 12/13/22 @ 11:39 by Renee Smith MD) Palliative care patient (Acute) Aspiration pneumonia (Acute) Oropharyngeal dysphagia (Acute) Advanced care planning/counseling discussion (Acute) Mass of thyroid gland (Acute) Discharge planning issues (Acute) DVT prophylaxis (Acute) Pneumonia (Acute) Hypernatremia (Acute) Folate deficiency (Acute) B12 deficiency (Acute) [place] (acute kidney injury) (Acute) Sacral decubitus ulcer (Acute) Indwelling Wilkerson catheter present (Acute) Communication deficit (Acute) Unable to walk (Acute) Dysphagia (Acute) 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) Schizoaffective disorder (Acute) Sepsis (Acute) UTI (urinary tract infection) (Acute) Pneumonia (Acute) Medical History Atrial fibrillation BPH (benign prostatic hyperplasia) Chronic kidney disease HTN (hypertension) Hx of hyperlipidemia Parkinsons disease Social History Smoking/Tobacco Use Status: Never Smoking risk assessment performed?: Yes Substance use type: does not use Exam Narrative Exam Narrative: Initially sleeping, easily aroused. Grunts but I am unable to interpret if yes or no. Points with his right hand. Able to raise and move both his left and right hand when prompted. No cough at all during visit (in striking contrast to my last visit with him at [facility] 5 days ago), no respiratory distress. No lower extremity edema. Skin on heels is intact. Butterfly bandage over sacral area. He has several areas of breakdown in 1 to 2 cm laceration looking breakdown centrally. Butterfly bandages reapplied. Results Last Vital Signs Temp 36.6 C 12/13/22 07:40 Pulse 79 12/13/22 07:40 Resp 20 12/13/22 07:40 BP 117/76 12/13/22 07:40 Pulse Ox 96 12/13/22 07:40 Labs 12/13/22 06:01 12/13/22 06:01 Labs: Laboratory Results - last 24 hr 12/11/22 12/12/22 12/12/22 18:01 12:15 18:16 WBC RBC Hgb Hct MCV MCH MCHC RDW Plt Count MPV Immature Gran % Neutrophils % Lymphocytes % Monocytes % Eosinophils % Basophils % Nucleated RBC % Absolute Neutrophils Absolute Lymphocytes Absolute Monocytes Absolute Eosinophils Absolute Basophils Sodium 150 H 150 H Potassium 3.5 3.1 L Chloride 117 H 117 H Carbon Dioxide 23.2 21.9 Anion Gap 9.8 11.1 H BUN 24 H 23 H Creatinine 0.9 0.8 Est GFR (CKD-EPI 2020) 89.07 92.29 Glucose 125 H 124 H Calcium 9.1 9.2 C-Reactive Protein Procalcitonin Urine Legionella Ag Negative 12/13/22 12/13/22 12/13/22 00:25 06:01 06:01 WBC RBC Hgb Hct MCV MCH MCHC RDW Plt Count MPV Immature Gran % Neutrophils % Lymphocytes % Monocytes % Eosinophils % Basophils % Nucleated RBC % Absolute Neutrophils Absolute Lymphocytes Absolute Monocytes Absolute Eosinophils Absolute Basophils Sodium 150 H 151 H Potassium 2.8 L* 2.9 L Chloride 116 H 117 H Carbon Dioxide 22.3 23.9 Anion Gap 11.7 H 10.1 BUN 21 H 20 H Creatinine 0.9 0.8 Est GFR (CKD-EPI 2020) 89.07 92.29 Glucose 102 119 H Calcium 9.1 9.0 C-Reactive Protein 1.40 H Procalcitonin < 0.1 Urine Legionella Ag 12/13/22 06:01 WBC 4.27 L RBC 3.97 L Hgb 12.4 L Hct 39.0 L MCV 98 H MCH 31.2 MCHC 31.8 L RDW 12.5 Plt Count 163 MPV 11.0 Immature Gran % 0.7 Neutrophils % 67.2 Lymphocytes % 20.6 Monocytes % 8.0 Eosinophils % 2.8 Basophils % 0.7 Nucleated RBC % 0.0 Absolute Neutrophils 2.87 Absolute Lymphocytes 0.88 L Absolute Monocytes 0.34 Absolute Eosinophils 0.12 Absolute Basophils 0.03 Sodium Potassium Chloride Carbon Dioxide Anion Gap BUN Creatinine Est GFR (CKD-EPI 2020) Glucose Calcium C-Reactive Protein Procalcitonin Urine Legionella Ag
[2022-12-13] MEDS: Triamcinolone 0.1% CR 15 GM TUBE TP ×2 (11:44→21:03)
[2022-12-13 12:31] LABS: Anion Gap 8.8 mmol/L (3-11); BUN 18 mg/dL (7-18); CO2 24.2 mmol/L (21.0-32.0); CREATININE 0.8 mg/dL (0.70-1.30); Calcium 8.9 mg/dL (8.5-10.1); Chloride 117 mmol/L (98-107); Estimated GFR 92.29 (mL/min/1.73m2); Glucose 117 mg/dL (74-106); Potassium 3.3 mmol/L (3.5-5.1); Sodium 150 mmol/L (136-145)
[2022-12-13] MEDS: POTASSIUM CHLORIDE 20 MEQ/100 ML BAG 50 MEQ IVPB ×3 (12:37→21:02)
--- NOTE | 2022-12-13 12:54 | DI.RAD_ITS ---
Exam(s) XR PORTABLE CHEST AP EXAM: XR PORTABLE CHEST AP CLINICAL HISTORY: NGT placement. TECHNIQUE: 2D digital imaging was performed. COMPARISON: CR,XR XR PORTABLE CHEST AP from 11/24/2022 FINDINGS: Single AP portable view. There is an NG tube which is coiled back on itself at the GE junction and needs to be advanced into t he stomach lumen. Heart size is upper normal. The mediastinum is not widened. Left lung is clear. Right hemidiaphragm is elevated and there is some atelectasis at this level. No pleural effusions. No pulmonary edema. No pneumothorax. IMPRESSION: As above. The NG tube needs to be repositioned into the stomach. It is presently coiled at the GE j unction level. DATA REPOSITORY: RADIATION DOSE DELIVERED:
--- NOTE | 2022-12-13 14:42 | DI.RAD_ITS ---
Exam(s) XR PORTABLE CHEST AP EXAM: XR PORTABLE CHEST AP CLINICAL HISTORY: recheck NGT placement. TECHNIQUE: 2D digital imaging was performed. COMPARISON: CR XR PORTABLE CHEST AP from 12/13/2022 FINDINGS: Single AP portable view. Heart size is unchanged. The mediastinum is not widened. Elevated right hemidiaphragm again noted. No new infiltrates. Faintly visualized NG tube noted which appears to be in the proximal stomach. IMPRESSION: NG tube appears to have been advanced into the stomach but still difficult to visualize due to its th in nature. DATA REPOSITORY: RADIATION DOSE DELIVERED:
--- NOTE | 2022-12-13 16:24 | CHAPLAIN ---
Cesario was resting in bed when I visited. He appeared to be sleeping. I spoke with Cesario's brother, Sesar, and sister in law, from [place]. They said Cesario recently decided to have a feeding tube placed. Dr. Smith, from Palliative Care spoke earlier with Cesario, using a communication board, and also with Sesar, Cesario's HCA, about the feeding tube and Cesario's goals of care.
[2022-12-13] MEDS: Pantoprazole 40 MG VIAL IVP (17:28)
--- NOTE | 2022-12-13 18:12 | DI.VRAD_ITS ---
PROCEDURE INFORMATION: Exam: XR Abdomen Exam date and time: 12/13/2022 4:53 PM Age: 77 years old Clinical indication: Other: Confirm ngt placement TECHNIQUE: Imaging protocol: Radiologic exam of the abdomen. Views: Frontal supine view of the abdomen. 1 View. Total images: 2 COMPARISON: CT CHEST/ABD/PEL W 12/10/2022 11:09 AM FINDINGS: Tubes, catheters and devices: Nasogastric tube is in place and coiled within the stomach. Gastrointestinal tract: Bowel gas pattern is nonobstructive and nonspecific. Large amount of stool is present throughout the colon. Bones/joints: Unremarkable. IMPRESSION: 1. Nasogastric tube is in place and coiled within the stomach. 2. Bowel gas pattern is nonobstructive and nonspecific. 3. Large amount of stool is present throughout the colon. Dictated and Authenticated by: Melo Cisneros MD. Ordering:KILLIAN Samayoa MD
--- NOTE | 2022-12-13 18:48 | W.PM.PROGNOT ---
Date of Service Date of service: 12/13/22 Time of Service: 18:49 Assessment and Plan Assessment and plan (1) Oropharyngeal dysphagia: Status: Acute Assessment and plan: NPO. Needs MBSS, per speech, which wouldn't be available until . For now, has an NGT. Will wait w/ placement of a G/PEG tube until MBSS results are known. If tolerates TFs, will resume oral meds per tube. (2) Pneumonia: Status: Resolved Assessment and plan: Aspiration PNA. no longer symptomatic, procalcitonin negative, o2 requirement resolved. D/c abx. (3) Acute respiratory failure with hypoxia: Status: Resolved Assessment and plan: In setting of aspiration pneumonia + pneumonitis. As above (4) Hypernatremia: Status: Acute Assessment and plan: Due to dehydration/NPO status/dysphagia. Free water deficit is between 1.6 and 2 L. Will adjust free water per tube and d/c IVF. 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 As above. Resume Parkinson's meds per tube, if tolerates TFs tonight. Neurology is consulted, but unavailable this week. (6) Atrial fibrillation: Assessment and plan: Holding oral meds. Has prn IV lopressor. Start scheduled cardizem. Monitor on tele. Currently in NSR. It is unclear to me at this time what happened to apixaban that the [facility]. 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 Will need an outpatient ultrasound. (8) Sacral decubitus ulcer: Status: Acute Assessment and plan: Wound care consulted. (9) DVT prophylaxis: Status: Acute Assessment and plan: sc heparin (10) Discharge planning issues: Status: Acute Assessment and plan: DNI C/s PT, speech, palliative care, wound care. Subjective Subjective Interval history since last seen: Cesario had a family meeting today with palliative care, and a decision was made to go ahead with the feeding tube. NGT was placed. Cesario denied pain, dizziness, shortness of breath. Exam Narrative Exam Narrative: General: Elderly male who has an NGT in; appears comfortable HEENT: EOMI, MMM Cardiovascular: RRR, no m/r/g Lungs: CTAB Gastrointestinal: soft, nontender, nondistended Genitourinary: has a ribeiro Extremities: no edema BLEs, 1+ pedal pulses B, no lesions B feet, no clubbing/cyanosis Objective Last Vital Signs Temp 36.7 C 12/13/22 15:39 Pulse 68 12/13/22 17:16 Resp 16 12/13/22 17:08 BP 125/76 12/13/22 15:39 Pulse Ox 95 12/13/22 17:16 Laboratory Results - last 24 hr 12/11/22 12/13/22 12/13/22 18:01 00:25 06:01 WBC RBC Hgb Hct MCV MCH MCHC RDW Plt Count MPV Immature Gran % Neutrophils % Lymphocytes % Monocytes % Eosinophils % Basophils % Nucleated RBC % Absolute Neutrophils Absolute Lymphocytes Absolute Monocytes Absolute Eosinophils Absolute Basophils Sodium 150 H 151 H Potassium 2.8 L* 2.9 L Chloride 116 H 117 H Carbon Dioxide 22.3 23.9 Anion Gap 11.7 H 10.1 BUN 21 H 20 H Creatinine 0.9 0.8 Est GFR (CKD-EPI 2020) 89.07 92.29 Glucose 102 119 H Calcium 9.1 9.0 C-Reactive Protein 1.40 H Procalcitonin Urine Legionella Ag Negative 12/13/22 12/13/22 12/13/22 06:01 06:01 12:10 WBC 4.27 L RBC 3.97 L Hgb 12.4 L Hct 39.0 L MCV 98 H MCH 31.2 MCHC 31.8 L RDW 12.5 Plt Count 163 MPV 11.0 Immature Gran % 0.7 Neutrophils % 67.2 Lymphocytes % 20.6 Monocytes % 8.0 Eosinophils % 2.8 Basophils % 0.7 Nucleated RBC % 0.0 Absolute Neutrophils 2.87 Absolute Lymphocytes 0.88 L Absolute Monocytes 0.34 Absolute Eosinophils 0.12 Absolute Basophils 0.03 Sodium 150 H Potassium 3.3 L Chloride 117 H Carbon Dioxide 24.2 Anion Gap 8.8 BUN 18 Creatinine 0.8 Est GFR (CKD-EPI 2020) 92.29 Glucose 117 H Calcium 8.9 C-Reactive Protein Procalcitonin < 0.1 Urine Legionella Ag Objective Narrative Objective Narrative: XR abdomen: 1. ? Nasogastric tube is in place and coiled within the stomach. 2. ? Bowel gas pattern is nonobstructive and nonspecific. 3. ? Large amount of stool is present throughout the colon. Time Spent with Patient Time Spent with Patient: 35-49 minutes Time was spent: preparing to see the patient(eg.review tests), obtaining and/or reviewing separately otained hiistory, ordering medications,tests, procedures, referring, communicating with other health wound care coordinator, indepentently interpreting results, counseling the patient and care coordination
[2022-12-13 23:28] LABS: Streptococcus Pneumoniae Ag, U Negative (Negative)
[2022-12-14] VITALS (15 sets, daily range): BP systolic 107–130; BP diastolic 62–82; PULSE 49–107; RESP 8–30; TEMP 36.6–37.7; O2SAT 92–99
[2022-12-14] MEDS: Heparin 5,000 UNITS/ML VIAL 5000 UNITS SC ×3 (01:16→18:20)
[2022-12-14] MEDS: dilTIAZem 30 MG TAB NG ×2 (01:16→07:42)
[2022-12-14] MEDS: Albuterol/Ipratropium 3 ML UPD VIAL UPD ×4 (04:38→21:30)
[2022-12-14 06:03] LABS: Abs Immature Grans 0.02 10^3/uL (0.0-0.06); Absolute Basophil Count 0.04 10^3/uL (0.0-0.2); Absolute Eosinophil Count 0.22 10^3/uL (0.0-0.7); Absolute Lymphocyte Count 0.95 10^3/uL (1.2-3.4); Absolute Monocyte Count 0.47 10^3/uL (0.1-0.8); Absolute Neutrophil Count 3.84 10^3/uL (1.2-6.7); Basophils % 0.7; HCT 37.9 % (40.0-50.0); HGB 12.2 g/dL (13.5-17.5); Immature Grans % 0.4; Lymphocytes % 17.1; MCH 31.4 pg (27.0-33.0); MCHC 32.2 % (32.0-36.0); MCV 98 fL (80-95); MPV 11.8 fL (8.0-11.0); Monocytes % 8.5; Neutrophils % 69.3; Platelet Count 151 10^3/uL (130-400); RBC 3.88 10^6/uL (4.36-5.78); RDW 12.7 % (11.8-14.1); RDW-SD 45.1 fL; WBC 5.54 10^3/uL (4.4-10.8)
[2022-12-14 06:23] LABS: Anion Gap 9.9 mmol/L (3-11); BUN 14 mg/dL (7-18); CO2 22.1 mmol/L (21.0-32.0); CREATININE 0.7 mg/dL (0.70-1.30); Calcium 8.7 mg/dL (8.5-10.1); Chloride 118 mmol/L (98-107); Estimated GFR 96.09 (mL/min/1.73m2); Glucose 128 mg/dL (74-106); Magnesium 2.1 mg/dL (1.8-2.4); Potassium 3.6 mmol/L (3.5-5.1); Sodium 150 mmol/L (136-145)
[2022-12-14] MEDS: Triamcinolone 0.1% CR 15 GM TUBE TP ×2 (07:43→19:27)
--- NOTE | 2022-12-14 08:23 | PDOC.CMPRO ---
- If Service Date Differs Date of service: 12/14/22 Time of Service: 08:23 Care Management Progress Note S/O: Cesario had a gastric tube placed yesterday and started enteral feedings and he looks better. He is still using the communication board effectively. He is working with PT and Mica also notes improvement with his functional ability today. Cesario will discharge back to [facility] when medically ready. There was a wound consult placed for a buttock ulcer seen in the ER on admission. CM will continue to follow. A: 77 year old male admitted to [facility] on 12/10/22 for Aspiration Pneumonia, Acute Hypoxic Respiratory Failure. P: Cesario will return to [facility] when medically cleared by provider. He will follow up with his PCP and plan of care as instructed. He will be transported via the facility's wheelchair van when ready. CM will continue to follow.
[2022-12-14] MEDS: Normal Saline Flush 10 ML SYR IVP ×2 (10:49→18:20)
[2022-12-14] MEDS: Carbidopa 25/Levodopa 100 TAB NG ×3 (12:03→19:27)
--- NOTE | 2022-12-14 12:46 | PT.INTREAT ---
Date of service: 12/14/22 Time of Service: 09:24 PT Notes Visit Reasons: Aspiration Pneumonia, Acute Hypoxic Respiratory Fa Inpatient Physical Therapy Treatment Note [facility] Date: 12/14/2022 PRECAUTIONS: Activity as tolerated, lift only SUBJECTIVE: Cesario is pleasant and indicates that he is agreeable to participating in PT. Patient is very limited in verbal communications, at this time, he is only able to verbally communicate with yes and no, as well as physical gestures, such as pointing. OBJECTIVE: Patient is observed to be more alert today. He has NG tube at this time. PAIN: No c/o pain BED MOBILITY/TRANSFERS Supine-sit: Min A - Mod A Sit-stand: Mod A with use of STEDY Stand-sit: CGA with use of STEDY and cueing for safety Bed-chair: STEDY with SBA GAIT: Not assessed THEREX: Patient was instructed in several exercises designed to promote ROM and strengthening, completed in a standing position in STEDY, to include: functional (modified) sit<>stand, as well as cervical flexion/extension and rotation. In p.m., patient was instructed in a resisted global strengthening program, completed in a long-sitting position, to include: Dorsiflexion/plantarflexion with yellow Tband x10 Hip abduction/adduction with yellow Tband x10 Hook-lying hip abduction with yellow Tband x10 Modified abdominal crunches with 3# and Min A x10 Rows with yellow Tband x10 Horizontal abduction with yellow Tband x10 Bicep curls with yellow Tband x10 Triceps kickbacks with upper arm support and 3# x10 Shoulder flexion to 90 degrees with 3# x10 ASSESSMENT: Patient continues to demonstrate limited activity tolerance, although does demonstrate some improved strength today compared to previous sessions. Continued inability to achieve full standing position, demonstrating inability to fully extend knees and hips. He continues require Mod A for [id number] with STEDY due to B LE weakness. PLAN: Continue with transfer training and global strengthening for improved mobility. TREATMENT CODE/TIME: Session 1: 28 minutes; [id number], [id number] (09:24) Session 2: 25 minutes; [id number] x2 (13:27)
--- NOTE | 2022-12-14 13:42 | W.SPSTP ---
Date of service: 12/14/22 Time of Service: 12:45 Subjective Pt lying in bed with NG tube in place. Wearing glasses, alert, and responsive to questions. It does not appear that pt has been receiving ice chips and thin liquids by spoon as recommended several days ago. Oral care protocol still hanging on the wall by pt's whiteboard. Nsg at bedside states pt has thick secretions in back of throat. Oral care completed two hours prior. Lemon glycerin swabs at bedside. Objective/Assessment/Plan Objective Treatment Techniques & Outcomes: FREELANCE [employer] STENOGRAPHER provided aggressive oral care with toothbrush and oral suction swab kit. Pt noted to have gag reflex which was not present 2 days ago. He also had hiccups intermittently throughout visit. Pt was participative with PO trials of thin liquids by spoon and cup, ice chips, jello, and pureed solids (custard). Pharyngeal swallow initiation was triggered timely today across textures- no bolus holding observed. Overt s/sx airway disturbance only noted x1 with thin liquid by cup (large swallow), evidenced by brief sharp cough reflex. During trials of pureed solids, pt demonstrated moderate postprandial oral residue on posterior lingual blade and pocketed material in bilateral buccal cavity. Cued repeat swallow was ineffective at clearing material. Liquid wash also ineffective; pt required suctioning of remaining custard from mouth. Patient/Caregiver/Staff Education: Nsg educated to avoid use of lemon glycerin swabs for oral care. Acidity of lemon glycerin can increase risk of oral thrush and tooth decay from drying properties. Lemon glycerin is useful for thermal/tactile stimulation and prompting pharyngeal swallow initiation but should not be used in place of a soft-bristled toothbrush and moist oral care sponges with oral debridement agents and/or plain water. Updates were made to oral care and swallowing strategies handouts on pt's wall. Assessment Swallow safety has improved. Pt continues with moderate to severe oropharyngeal dysphagia due to inability to clear oral cavity of solids but is now appropriate for instrumental testing via MBSS as evidenced by improved sensation and pharyngeal swallow initiation. Plan Plan: MBSS tomorrow to determine further plan of care. Continue NG tube. Cautious initiation of clear liquid diet. Recommendations Diet: Other (clear liquids) Liquids: 0-Thin Liquids Other: pt may continue to have ice chips and spoon sips of water as requested if not coughing during consumption. PLEASE ENSURE ORAL CARE HAS BEEN COMPLETED BEFORE ALL MEALS. Strategies/Adaptions: Upright and out of bed in a chair for all meals/snacks, Use supports to ensure upright/midline posture, Small sips, No straws, Liquids via of tsp only, Check oral cavity frequently, Feed in low-stimulation environment, Upright for at least 30 minutes after meal and Oral care at least 2x/day (q2hr) Supervision: Total Feed Additional Notes: Coding- 65575 Oral function therapy Total Time Spent: 52 minutes Coding Diagnoses
[2022-12-14] MEDS: Patch Removal 1 EACH TP (14:22)
--- NOTE | 2022-12-14 14:28 | W.PM.PROGNOT ---
Date of Service Date of service: 12/14/22 Time of Service: 10:00 Assessment and Plan Assessment and plan (1) Oropharyngeal dysphagia: Status: Acute Assessment and plan: S/p NGT. Now doing ok with thin liquids - ordered. We are verifying when MBSS would be available. Continue TFs for now + clear liquids. Will wait w/ placement of a G/PEG tube until MBSS results are known. Resume meds per tube. (2) Pneumonia: Status: Resolved Assessment and plan: Aspiration PNA. no longer symptomatic, procalcitonin negative, o2 requirement resolved. Doing well off of abx. (3) Acute respiratory failure with hypoxia: Status: Resolved Assessment and plan: In setting of aspiration pneumonia + pneumonitis. As above (4) Hypernatremia: Status: Acute Assessment and plan: Due to dehydration/NPO status/dysphagia. Increase free water per tube. Encourage water by mouth. 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 No neurology available this week. (6) Atrial fibrillation: Assessment and plan: Continue cardizem per tube. D/c tele. It is unclear to me at this time what happened to apixaban that [facility]. 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 Will need an outpatient ultrasound. (8) Sacral decubitus ulcer: Status: Acute Assessment and plan: Wound care consulted. (9) DVT prophylaxis: Status: Acute Assessment and plan: sc heparin (10) Discharge planning issues: Status: Acute Assessment and plan: DNI PT, speech, palliative care, wound care consulted. Subjective Subjective Interval history since last seen: Cesario states he is hungry. He is not in pain, the NGT is not bothering him. He denies dizziness, chest pain, shortness of breath, nausea. He was cleared by speech therapy for a clear liquid diet with thin liquids. Exam Narrative Exam Narrative: General: Elderly male who has an NGT in; sitting up in a chair, appears very alert HEENT: EOMI, MMM Cardiovascular: RRR, no m/r/g Lungs: CTAB Gastrointestinal: soft, nontender, nondistended Genitourinary: has a ribeiro Extremities: no edema BLEs, 1+ pedal pulses B, no lesions B feet, no clubbing/cyanosis Objective Last Vital Signs Temp 37.0 C 12/14/22 12:00 Pulse 71 12/14/22 12:00 Resp 22 12/14/22 12:00 BP 107/62 12/14/22 12:00 Pulse Ox 98 12/14/22 12:00 Laboratory Results - last 24 hr 12/11/22 12/14/22 12/14/22 18:01 02:44 05:36 WBC RBC Hgb Hct MCV MCH MCHC RDW Plt Count MPV Immature Gran % Neutrophils % Lymphocytes % Monocytes % Eosinophils % Basophils % Nucleated RBC % Absolute Neutrophils Absolute Lymphocytes Absolute Monocytes Absolute Eosinophils Absolute Basophils Sodium 150 H Potassium 3.6 Chloride 118 H Carbon Dioxide 22.1 Anion Gap 9.9 BUN 14 Creatinine 0.7 Est GFR (CKD-EPI 2020) 96.09 Glucose 128 H Calcium 8.7 Magnesium 2.1 M. pneumoniae Source Cancelled M. pneumoniae (PCR) Cancelled Ur Strep pneumoniae Ag Negative 12/14/22 05:36 WBC 5.54 RBC 3.88 L Hgb 12.2 L Hct 37.9 L MCV 98 H MCH 31.4 MCHC 32.2 RDW 12.7 Plt Count 151 MPV 11.8 H Immature Gran % 0.4 Neutrophils % 69.3 Lymphocytes % 17.1 Monocytes % 8.5 Eosinophils % 4.0 Basophils % 0.7 Nucleated RBC % 0.0 Absolute Neutrophils 3.84 Absolute Lymphocytes 0.95 L Absolute Monocytes 0.47 Absolute Eosinophils 0.22 Absolute Basophils 0.04 Sodium Potassium Chloride Carbon Dioxide Anion Gap BUN Creatinine Est GFR (CKD-EPI 2020) Glucose Calcium Magnesium M. pneumoniae Source M. pneumoniae (PCR) Ur Strep pneumoniae Ag Time Spent with Patient Time Spent with Patient: 25-34 minutes Time was spent: preparing to see the patient(eg.review tests), obtaining and/or reviewing separately otained hiistory, ordering medications,tests, procedures, referring, communicating with other health healthcare financial analyst, indepentently interpreting results, counseling the patient and care coordination
[2022-12-14] MEDS: Benztropine 1 MG TAB NG (15:28)
--- NOTE | 2022-12-14 15:59 | PHACLINREV_ITS ---
Pharmacy Admission Review - Admission Clinical Review (Last Reviewed 12/10/22 @ 10:04 by Andrade Arguelles MD) Palliative care patient (Acute) Aspiration pneumonia (Acute) Oropharyngeal dysphagia (Acute) Advanced care planning/counseling discussion (Acute) Mass of thyroid gland (Acute) Discharge planning issues (Acute) DVT prophylaxis (Acute) Hypernatremia (Acute) Sacral decubitus ulcer (Acute) Communication deficit (Acute) Dysphagia (Acute) 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) No Known Allergies Allergy (Verified 11/06/18 16:28) Resuscitation Status DNR/DNI Height 5 ft 8 in Weight 90.7 kg - Renal Dosing Renal Dosing: BUN 14 mg/dL (7-18) 12/14/22 05:36 Creatinine 0.7 mg/dL (0.70-1.30) 12/14/22 05:36 Medications needing adjustments: Reviewed (crcl = 69, meds ok) - Anticoagulation Anticoagulation: Hgb 12.2 g/dL (13.5-17.5) L 12/14/22 05:36 Hct 37.9 % (40.0-50.0) L 12/14/22 05:36 Plt Count 151 10^3/uL (130-400) 12/14/22 05:36 Creatinine 0.7 mg/dL (0.70-1.30) 12/14/22 05:36 DVT Prophylaxis: Reviewed Medications: Heparin (5000 units q8h) Therapeutic Anticoagulation: Reviewed (does have Afib (on diltiazem), started on Eliquis last admission but does not appear it was continued or was discontinued at some point when he returned to the [facility]) - Opiate Usage Evaluate Pain Scale/Pains Meds: N/A - Relevant Labs Sodium 150 mmol/L (136-145) H 12/14/22 05:36 Potassium 3.6 mmol/L (3.5-5.1) 12/14/22 05:36 Chloride 118 mmol/L (98-107) H 12/14/22 05:36 Magnesium 2.1 mg/dL (1.8-2.4) 12/14/22 05:36 C-Reactive Protein 1.40 mg/dL (0.0-0.3) H 12/13/22 06:01 Electrolytes, C-Reactive P, ESR: Reviewed (hypernatremic, hopefully will resolve now that he can receive water via NG tube) - DM Control DM Control: Glucose 128 mg/dL (74-106) H 12/14/22 05:36 DM Control: N/A - Cardiac Review Cardiac Review: Troponin I < 50 ng/L (<or=60) 12/10/22 13:10 BP, HR, EF%: Reviewed - Qtc Review QTc: Reviewed (QTc = 410 on 11/24/22) - IV to PO Switch IV Medications: Reviewed (unable to swallow - most meds are via NG tube. continue IV protonix, ketorolac) - Home Meds Home Med List reviewed: Reviewed Relevent Home Meds Not ordered & why?: majority of meds are ordered (NG administration). Working on getting entacapone as it is not on our formulary. [facility] ( [facility]) contacted to request med but they have considered patient to be discharged so his meds needed to be returned to their pharmacy supplier - will order from our field automobile adjuster for tomorrow - Current meds Current Medication Order Review: Reviewed
[2022-12-14] MEDS: Pantoprazole 40 MG VIAL IVP (18:19)
[2022-12-15] VITALS (11 sets, daily range): BP systolic 109–129; BP diastolic 65–74; PULSE 60–80; RESP 1–210; TEMP 36–37; O2SAT 92–99
[2022-12-15] MEDS: dilTIAZem 30 MG TAB NG ×4 (00:41→20:08)
[2022-12-15] MEDS: Heparin 5,000 UNITS/ML VIAL 5000 UNITS SC ×3 (01:48→18:12)
[2022-12-15] MEDS: Albuterol/Ipratropium 3 ML UPD VIAL UPD ×4 (03:48→22:07)
[2022-12-15 06:07] LABS: Abs Immature Grans 0.02 10^3/uL (0.0-0.06); Absolute Basophil Count 0.02 10^3/uL (0.0-0.2); Absolute Eosinophil Count 0.32 10^3/uL (0.0-0.7); Absolute Lymphocyte Count 0.94 10^3/uL (1.2-3.4); Absolute Neutrophil Count 2.88 10^3/uL (1.2-6.7); Basophils % 0.4; Eosinophils % 6.7; HCT 36.5 % (40.0-50.0); HGB 11.9 g/dL (13.5-17.5); Immature Grans % 0.4; Lymphocytes % 19.7; MCH 31.9 pg (27.0-33.0); MCHC 32.6 % (32.0-36.0); MCV 98 fL (80-95); MPV 11.6 fL (8.0-11.0); Monocytes % 12.6; Neutrophils % 60.2; Platelet Count 141 10^3/uL (130-400); RBC 3.73 10^6/uL (4.36-5.78); RDW 12.7 % (11.8-14.1); RDW-SD 45.6 fL; WBC 4.78 10^3/uL (4.4-10.8)
[2022-12-15 06:15] LABS: Anion Gap 6.6 mmol/L (3-11); BUN 16 mg/dL (7-18); CO2 26.4 mmol/L (21.0-32.0); CREATININE 0.7 mg/dL (0.70-1.30); Calcium 8.7 mg/dL (8.5-10.1); Chloride 113 mmol/L (98-107); Estimated GFR 96.09 (mL/min/1.73m2); Glucose 110 mg/dL (74-106); Magnesium 1.9 mg/dL (1.8-2.4); Potassium 3.3 mmol/L (3.5-5.1); Sodium 146 mmol/L (136-145)
[2022-12-15] MEDS: Folic Acid 1 MG TAB NG (08:11)
[2022-12-15] MEDS: Ascorbic Acid 500 MG TAB NG (08:11)
[2022-12-15] MEDS: Carbidopa 25/Levodopa 100 TAB NG ×4 (08:11→20:08)
[2022-12-15] MEDS: Benztropine 1 MG TAB NG (08:11)
[2022-12-15] MEDS: Aspirin 81 MG CHEW NG (08:12)
[2022-12-15] MEDS: Cyanocobalamin 500 MCG TAB 1000 MCG NG (08:12)
[2022-12-15] MEDS: Triamcinolone 0.1% CR 15 GM TUBE TP ×2 (08:31→20:07)
[2022-12-15] MEDS: Potassium Chloride Liquid 20 MEQ PKT NG ×3 (08:37→20:08)
[2022-12-15] MEDS: POTASSIUM CHLORIDE 10 MEQ/100 ML BAG 100 MEQ IVPB ×4 (10:06→13:45)
--- NOTE | 2022-12-15 10:46 | PDOC.CMPRO ---
- If Service Date Differs Date of service: 12/15/22 Time of Service: 10:46 Care Management Progress Note S/O: CM observed Cesario sitting up in his chair, being supported by nursing. Per report, Cesario is no longer on antibiotics, and he is on room air, saturating from 94-99%. He is being fed with an NG tube currently, and may have a Peg tube placed, either prior to his discharge or from the community as an outpatient. Per MD, surgery will be consulted to determine the best course of action regarding the Peg tube. He will have repeat labs in the morning, and may return to [facility], if surgery is not able to place the Peg tube within a reasonable amount if time. CM reached out to [facility] regarding a medication needed for his parkinsons, which they were unable to provide, as his medications were returned to their pharmacy. CM discussed his discharge with [facility], who stated that although he is not a longterm resident, he is welcome to return, and has a bed waiting for him when he arrives. CM will continue to follow. A: 77 year old male admitted to [facility] on 12/10/22 for Aspiration Pneumonia, Acute Hypoxic Respiratory Failure. P: Cesario will return to [facility] when medically cleared by provider. He will follow up with his PCP and plan of care as instructed. He will be transported via the facility's wheelchair van when ready. CM will continue to follow.
[2022-12-15] MEDS: Protein Nutritional Supplement 16 GM 1 OUNCE PACKET 2 OUNCE NG (13:04)
--- NOTE | 2022-12-15 13:36 | W.NUTRFU ---
Date of service: 12/15/22 Time of Service: 13:36 Nutrition Note NOTE: Cesario is tolerating NGT enteral feedings. Ordered for Osmolite 1.2 at 50 cc/hour, 2 oz liquid protein qd providing total of 1560 kcal, 96 g protein, 900 ml free water. Flushes ordered for 300 ml q 4. Receiving total of 2700 ml fluid. Continues with hypernatremia despite receiving 30 ml fluid per kg. Awaiting Peg placement. TABLE GAMES FLOOR SUPERVISOR cleared him for clear liquids and ice chips per spoon. Will await po intake for next couple of days and then adjust tube feeding as needed. Time Spent in Nutritional Counseling and Treatment: 5
--- NOTE | 2022-12-15 13:36 | PT.INTREAT ---
Date of service: 12/15/22 Time of Service: 11:32 PT Notes Visit Reasons: Aspiration Pneumonia, Acute Hypoxic Respiratory Fa Inpatient Physical Therapy Treatment Note [facility] Date: 12/15/2022 PRECAUTIONS: Activity as tolerated, STEDY lift only SUBJECTIVE: Cesario is pleasant and indicates that he is agreeable to participating in PT. Patient is very limited in verbal communications, at this time, he is only able to verbally communicate with yes and no, as well as physical gestures, such as pointing. OBJECTIVE: Patient is observed to be more alert today. He has NG tube at this time. PAIN: No c/o pain BED MOBILITY/TRANSFERS Supine-sit: Min A - Mod A Sit-supine: Max A x2 Sit-stand: CGA with use of STEDY Stand-sit: CGA with use of STEDY and cueing for safety Bed-chair: STEDY with SBA Chair-bed: SBA with STEDY GAIT: Not assessed THEREX: Patient was instructed in a resisted global strengthening program, completed in a seated position, to include: Hip abduction/adduction with yellow Tband x10 LAQ with yellow Tband x10 Modified abdominal crunches with 3# and Min A x10 Rows with yellow Tband x10 Horizontal abduction with yellow Tband x10 Bicep curls with 3# x10 Punch ups with 3# x10 Shoulder flexion to 90 degrees with 3# x10 ASSESSMENT: Patient continues to demonstrate improved strength and mobility compared to previous sessions. However, he continues to demonstrate inability to achieve full standing position due to inability to fully extend knees and hips. He was able to complete sit<>stand transfer with STEDY and CGA. PLAN: Continue with transfer training and global strengthening for improved mobility. TREATMENT CODE/TIME: Session 1: 33 minutes; [id number], [id number] (11:32) Session 2: 10 minutes; 55622 (13:15)
--- NOTE | 2022-12-15 13:49 | WOUNDCONS_ITS ---
- If Service Date Differs Date of service: 12/15/22 Time of Service: 13:00 Wound Initial Evaluation Narrative: Patient is a 77 YOM. He is being seen here for aspiration pneumonia secondary to oral pharyngeal dysphagia, and acute respiratory failure with hypoxia. He has a hx significant for A-fib, BPH, CKD, HTN, Hyperlipidemia, and Parkinson's disease. He was admitted with stageable wounds on his sacral area. Patient is alert, but is only able to respond with yes or no answers verbally. He is unable to sign the consent. Goal of care was discussed with the patient, and [facility] present as a witness, verbally consents to having a wound consult performed. Patients H&P and progress notes were reviewed. He is currently ordered to be able to have PO thin liquids. Having spoken to his primary nurse, she stated that this did not go well for the patient and she had her concerns. Patient is currently being fed parental nutrition through a NG tube, while insertion of a gastric feeding is pending. Labs of note are NA 146, noted he is receiving IV fluids as this was felt to be elevated D/T dehydration. KCL 3.3, and this was noted by this wound nurse to being repleted at this time. All other pertinent information was reviewed prior to starting the consult. Body Four View: 1 - stage 3 2 - stage 3 - Wound Left Lumbar/Sacral Wound Type: Pressure Ulcer Pressure Ulcer Stage: III Wound General Appearance: Reddened, Bleeding, Unapproximated Wound Bed Greatest Portion: Red (Granulation) Wound Bed Lesser Portion: Yellow (Slough) Wound Surrounding Tissue Appearance: Other (excoriated) Percent of Wound Bed Granulated/Red: 85 Percent of Wound Bed Slough/Yellow: 15 Wound Length: 3 cm Wound Width: 2.8 cm Wound Depth: 0.6 cm Wound Drainage Amount: Minimal Wound Drainage Odor: None/Absent Wound Drainage Description: Bloody Wound Topical Solution/Irrigant: Saline Irrigant Wound Debridement Method: Gauze Wound Debridement Result: Healthy Tissue Revealed Wound Debridement Amount of Tissue Removed: Minimal Right Lumbar/Sacral Wound Type: Pressure Ulcer Pressure Ulcer Stage: III Wound General Appearance: Reddened, Bleeding, Unapproximated Wound Bed Greatest Portion: Red (Granulation) Percent of Wound Bed Granulated/Red: 90 Percent of Wound Bed Slough/Yellow: 10 Wound Length: 2.6 cm Wound Width: 3.5 cm Wound Depth: 0.5 cm Wound Drainage Amount: Minimal Wound Drainage Odor: None/Absent Wound Drainage Description: Bloody Wound Topical Solution/Irrigant: Saline Irrigant Wound Debridement Method: Gauze Wound Debridement Result: Healthy Tissue Revealed Wound Debridement Amount of Tissue Removed: Minimal Testicles and Groin Wound Type: Other (Fungal Rash) Wound General Appearance: Open to air, Other (excoriated) Wound Bed Greatest Portion: Other (dark red) Wound Surrounding Tissue Appearance: Other (excoriated) Wound Drainage Amount: None Wound Drainage Odor: Strong Wound Topical Solution/Irrigant: Other (Soap and Water) Wound Debridement Method: Other (Wash Cloth) Wound Debridement Result: Healthy Tissue Revealed Wound Debridement Amount of Tissue Removed: None - Circulation, Sensation, Motion Skin Temperature: Warm - Pain Pain Level: 4 (with cleaning) Pain Scale Used: Farmer-Quach Faces Patient has dysphagia, and has not been taking medication or food orally. He is not able to position himself to offload pressure, and patient has been incontinent which has allowed the excoriation of the skin. treatment should focus on protecting the skin from incontinence and offloading pressure, as to allow a healing environment and provide a greater level of comfort for the patient. - Photo Photo: - Treatment/Dressing Change Topicals/Ointments: Other (Triad) Cleanse With: Saline - Nutrition Education Reviewed Nutrition Education: No Note: Patient is on Parental nutrition through the NG tube - Recomendation Recomendation:: Sacral wounds. Cleanse with Normal Saline and pat dry with gauze. Apply a nickel thickness layer of Triad paste to the wound bed extending to the borders of the wound, to protect the wound bed from moisture. Cover with a Mepilex sacral. Change every 3 days or PRN if soiled or dislodged. Patient should be positioned to offload pressure every 2 hours as he can tolerate. Check placement of Dressing every shift. Groin and testicles. Wash with warm water and mild soap. Pat dry completely. Apply Triple ointment, (Alma cream) to the affected area. Perform twice daily. Physcian/Nurse Practioner Notified: Yes (Dr. Rey) Treatment Time - Time Total Time Spent with Patient: 45 minutes - Patient Will be Seen Weekly Treatment: daily - For: For:: 1 week
--- NOTE | 2022-12-15 13:57 | W.PM.PROGNOT ---
Date of Service Date of service: 12/15/22 Time of Service: 13:57 Assessment and Plan Assessment and plan (1) Oropharyngeal dysphagia: Status: Acute Assessment and plan: S/p NGT. Continue Osmolite along with free water per NG. Per dietary he is getting 1440 espinoza/day and 66 g protein. He is getting 300 mL of water every 4 hours through the NG. Certified Solid Waste Facility Operator request additional 2 ounces of protein supplementation be given daily. BLOCK OUT MACHINE OPERATOR is off sick today and therefore modified barium swallow will not be performed until next week. We may end up scheduling this is an outpatient test. (2) Pneumonia: Status: Resolved Assessment and plan: Aspiration PNA. no longer symptomatic, procalcitonin negative, o2 requirement resolved. O2 saturation 94 to 99% on room air Doing well off of abx. WBCs remain controlled at 4700. Procalcitonin level was normal at less than 0.1x2 sets on 12/10/2022 and again on 12/13/2022. Patient was treated with Zosyn from admission on 12/10/2022 through the professor of biostatistics hours of 12/14/2022. He is remained off antibiotics for 36 hours. I will repeat his inflammatory markers tomorrow prior to transferring him back to [facility]. (3) Acute respiratory failure with hypoxia: Status: Resolved Assessment and plan: In setting of aspiration pneumonia + pneumonitis. As above (4) Hypernatremia: Status: Acute Assessment and plan: Due to dehydration/NPO status/dysphagia. Increase free water per tube. 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 No neurology available this week. (6) Atrial fibrillation: Assessment and plan: Continue cardizem per tube. D/c tele. It is unclear to me at this time what happened to apixaban that the [facility]. 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 Will need an outpatient ultrasound. (8) Sacral decubitus ulcer: Status: Acute Assessment and plan: Wound care consulted. See Eliel's note (9) DVT prophylaxis: Status: Acute Assessment and plan: sc heparin (10) Discharge planning issues: Status: Acute Assessment and plan: DNI PT, speech, palliative care, wound care consulted. Plan for discharge back to [facility] once his electrolytes have stabilized. He can continue tube feedings at the correction and arrange for outpatient modified barium swallow for next week. Subjective Subjective Patient reports: no new complaints and feels better Exam Narrative Exam Narrative: Elderly white male lying in bed semiupright position about 35 degrees. He is alert he is oriented to his name denies any pain or dyspnea. Lungs with diffusely diminished breath sounds with some fine rales at the bases no rhonchi and no expiratory wheezing Heart irregularly irregular controlled rate no appreciable murmur rub Abdomen soft nondistended normal bowel sounds Extremities without peripheral cyanosis or edema, 20-gauge IV in the dorsum of the right hand without erythema or induration left antecubital with midline also w/out induration or redness ribeiro w/ pratt yellow clear urine Objective Last Vital Signs Temp 36.0 C L 12/15/22 11:37 Pulse 80 12/15/22 11:37 Resp 18 12/15/22 11:37 BP 115/74 12/15/22 11:37 Pulse Ox 94 12/15/22 11:37 Laboratory Results - last 24 hr 12/15/22 12/15/22 05:25 05:25 WBC 4.78 RBC 3.73 L Hgb 11.9 L Hct 36.5 L MCV 98 H MCH 31.9 MCHC 32.6 RDW 12.7 Plt Count 141 MPV 11.6 H Immature Gran % 0.4 Neutrophils % 60.2 Lymphocytes % 19.7 Monocytes % 12.6 Eosinophils % 6.7 Basophils % 0.4 Nucleated RBC % 0.0 Absolute Neutrophils 2.88 Absolute Lymphocytes 0.94 L Absolute Monocytes 0.60 Absolute Eosinophils 0.32 Absolute Basophils 0.02 Sodium 146 H Potassium 3.3 L Chloride 113 H Carbon Dioxide 26.4 Anion Gap 6.6 BUN 16 Creatinine 0.7 Est GFR (CKD-EPI 2020) 96.09 Glucose 110 H Calcium 8.7 Magnesium 1.9 Time Spent with Patient Time Spent with Patient: 35-49 minutes Time was spent: referring, communicating with other health personal care worker (Discussion of patient's care with dietitian, BLOCK OUT MACHINE OPERATOR per telephone, nursing , Dr. Smith)
[2022-12-15 17:09] LABS: Potassium 3.8 mmol/L (3.5-5.1)
[2022-12-15] MEDS: Pantoprazole 40 MG VIAL IVP (18:22)
[2022-12-15] MEDS: Normal Saline Flush 10 ML SYR IVP (18:23)
--- NOTE | 2022-12-15 20:28 | PCPN_ITS ---
Date of service: 12/15/22 Time of Service: 14:00 Assessment and Plan Assessment and plan (1) Palliative care patient: Status: Acute Assessment and plan: Patient seems to have adapted to NG tube well. He seems to be more engaged with therapy and staff and somewhat stronger since being started on enteral feeds. Unfortunately was unable to speak with family today to get their input. Palliative care team will continue to follow patient inpatient or at SNF for supportive care, symptom management and goals of care discussion as needed. (2) Oropharyngeal dysphagia: Status: Acute Assessment and plan: If patient is transferred back to SNF, please make sure that OPERATIONS MANAGER STATION handouts and consult note go back with him. Tiffany OT at [facility], had been carrying out OPERATIONS MANAGER STATION recommendations prior to this last admission. 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 If he is transferred back to SNF, this consult will need to be changed to outpatient. As per family and previous PCP, he may never have had a neurological consult. I think this consult would be very helpful for medical providers, caregivers, patient and family with both optimizing treatment and prognosis. (4) Sacral decubitus ulcer: Status: Acute Assessment and plan: Wound consult note reviewed. Unfortunately wound is now stage III. Patient initially told me it was painful with point board, then told me no longer painful. Wound nurse reports it was painful to have the wound cleansed. Recommend: Suggest pain medication (acetaminophen via NG tube) 30 minutes before wound cleansing and dressing changes. Asked patient about pain using point board and offer additional pain medicine as indicated. Subjective Subjective Interval history since last seen: Patient seen by palliative care team today for follow-up. Communication via point board. Mostly answered yes and no. Seems less sessile at using more complex point forward. Family not at bedside. Patient reports they are not visiting today. Notes reviewed. Staff reports: - Patient continues to cooperate with physical therapy. -On exam it looks like staff has been able to perform oral care on a more regular basis. -Unfortunately OPERATIONS MANAGER STATION out sick this week. Swallowing study cannot be done. He has not had additional speech therapy therapeutic services -Tolerating tube feeds via NG tube. Patient indicates that he had some pain in his buttocks but not now. He denies shortness of breath. He indicates that NG tube is not bothersome or painful and he does not mind having it in. When asked if he has any other concerns or problems or worries he points to know. Exam Narrative Exam Narrative: Quietly lying in bed, at his baseline. Glasses are on. Uses point board with prompt. Mucous membranes are slightly moist. Lips are not cracked. There is no blood in his mouth today and I do not see a cut on his tongue Objective Last Vital Signs Temp 37.0 C 12/15/22 20:04 Pulse 67 12/15/22 20:04 Resp 18 12/15/22 20:04 BP 109/71 12/15/22 20:04 Pulse Ox 94 12/15/22 20:04 Laboratory Results - last 24 hr 12/15/22 12/15/22 12/15/22 05:25 05:25 16:54 WBC 4.78 RBC 3.73 L Hgb 11.9 L Hct 36.5 L MCV 98 H MCH 31.9 MCHC 32.6 RDW 12.7 Plt Count 141 MPV 11.6 H Immature Gran % 0.4 Neutrophils % 60.2 Lymphocytes % 19.7 Monocytes % 12.6 Eosinophils % 6.7 Basophils % 0.4 Nucleated RBC % 0.0 Absolute Neutrophils 2.88 Absolute Lymphocytes 0.94 L Absolute Monocytes 0.60 Absolute Eosinophils 0.32 Absolute Basophils 0.02 Sodium 146 H Potassium 3.3 L 3.8 Chloride 113 H Carbon Dioxide 26.4 Anion Gap 6.6 BUN 16 Creatinine 0.7 Est GFR (CKD-EPI 2020) 96.09 Glucose 110 H Calcium 8.7 Magnesium 1.9
[2022-12-16] VITALS (11 sets, daily range): BP systolic 98–114; BP diastolic 68–89; PULSE 42–103; RESP 1–20; TEMP 35.9–37.2; O2SAT 92–96
[2022-12-16] MEDS: dilTIAZem 30 MG TAB NG ×3 (02:19→13:46)
[2022-12-16] MEDS: Heparin 5,000 UNITS/ML VIAL 5000 UNITS SC ×3 (02:19→20:38)
[2022-12-16] MEDS: Albuterol/Ipratropium 3 ML UPD VIAL UPD ×4 (03:46→21:20)
[2022-12-16 06:51] LABS: Abs Immature Grans 0.02 10^3/uL (0.0-0.06); Absolute Basophil Count 0.02 10^3/uL (0.0-0.2); Absolute Eosinophil Count 0.38 10^3/uL (0.0-0.7); Absolute Lymphocyte Count 1.07 10^3/uL (1.2-3.4); Absolute Monocyte Count 0.49 10^3/uL (0.1-0.8); Absolute Neutrophil Count 2.62 10^3/uL (1.2-6.7); Basophils % 0.4; Eosinophils % 8.3; HGB 12.5 g/dL (13.5-17.5); Immature Grans % 0.4; Lymphocytes % 23.3; MCH 32.1 pg (27.0-33.0); MCHC 32.9 % (32.0-36.0); MCV 97 fL (80-95); MPV 12.3 fL (8.0-11.0); Monocytes % 10.7; Neutrophils % 56.9; Platelet Count 146 10^3/uL (130-400); RDW 12.3 % (11.8-14.1); RDW-SD 43.8 fL
[2022-12-16 07:12] LABS: Anion Gap 8.1 mmol/L (3-11); BUN 11 mg/dL (7-18); C-Reactive Protein 1.93 mg/dL (0.0-0.3); CO2 24.9 mmol/L (21.0-32.0); CREATININE 0.6 mg/dL (0.70-1.30); Calcium 8.6 mg/dL (8.5-10.1); Chloride 108 mmol/L (98-107); Estimated GFR 100.67 (mL/min/1.73m2); Glucose 111 mg/dL (74-106); Potassium 3.7 mmol/L (3.5-5.1); Sodium 141 mmol/L (136-145)
[2022-12-16 07:33] LABS: Procalcitonin < 0.1 ng/mL
[2022-12-16] MEDS: MULTIVITAMIN NG (07:58)
[2022-12-16] MEDS: IRON NG (07:58)
[2022-12-16] MEDS: Carbidopa 25/Levodopa 100 TAB NG ×3 (07:59→17:39)
[2022-12-16] MEDS: Protein Nutritional Supplement 16 GM 1 OUNCE PACKET 2 OUNCE NG (07:59)
[2022-12-16] MEDS: Benztropine 1 MG TAB NG (07:59)
[2022-12-16] MEDS: Ascorbic Acid 500 MG TAB NG (08:00)
[2022-12-16] MEDS: Potassium Chloride Liquid 20 MEQ PKT NG (08:00)
[2022-12-16] MEDS: Aspirin 81 MG CHEW NG (08:00)
[2022-12-16] MEDS: Cyanocobalamin 500 MCG TAB 1000 MCG NG (08:00)
[2022-12-16] MEDS: Folic Acid 1 MG TAB NG (08:00)
[2022-12-16] MEDS: Triamcinolone 0.1% CR 15 GM TUBE TP ×2 (08:00→20:37)
--- NOTE | 2022-12-16 13:44 | PDOC.CMPRO ---
- If Service Date Differs Date of service: 12/16/22 Time of Service: 13:44 Care Management Progress Note S/O: Cesario is lying in bed when CM met with him. He is awake and uses the communication board to indicate that he feels better. He also raised his hand and gestured to have this display card writer pull the window shade down slightly. Cesario is currently receiving PN nutrition through a NG tube, which [facility] is unable to accommodate and discharge is delayed. The plan is for Cesario to have a modified barium swallow here to determine [facility] feeding options. Cesario will remain here through the weekend, as there is no availability for this swallow study until Monday. Of note, [facility] can accommodate a J-tube or a G-tube. Yesterday, CM reached out to [facility] regarding a medication needed for his Parkinson's, which they were unable to provide, as his medications were returned to their pharmacy. CM discussed his discharge with [facility], who stated that although he is not a long distance operator resident, he is welcome to return, and has a bed waiting for him when he arrives if they can accommodate his tube feeding needs.CM will continue to follow. A: 77 year old male admitted to [facility] on 12/10/22 for Aspiration Pneumonia, Acute Hypoxic Respiratory Failure. P: Cesario is currently receiving tube feedings through a NG Tube, which [facility] is unable to accommodate. A modified barium swallow is needed to determine long distance operator feeding options. Anticipate, Cesario will return to [facility], following feeding tube placement if able to accommodate. Cesario will follow up with his facility and community providers and plan of care as instructed. He will be transported via the facility's wheelchair van when ready. CM will continue to follow.
--- NOTE | 2022-12-16 13:49 | PT.INTREAT ---
Date of service: 12/16/22 Time of Service: 10:30 PT Notes Visit Reasons: Aspiration Pneumonia, Acute Hypoxic Respiratory Fa Inpatient Physical Therapy Treatment Note [facility] Date: 12/16/2022 PRECAUTIONS: Activity as tolerated, STEDY lift only SUBJECTIVE: Cesario is pleasant and indicates that he is agreeable to participating in PT. Patient is very limited in verbal communications, at this time, he is only able to verbally communicate with yes and no, as well as physical gestures, such as pointing. OBJECTIVE: Patient is observed to be more alert today. He has NG tube at this time. PAIN: No c/o pain BED MOBILITY/TRANSFERS Supine-sit: Min A - Mod A Sit-stand: Mod A with use of STEDY Stand-sit: Mod A with use of STEDY and cueing for safety Bed-chair: STEDY with SBA GAIT: Not assessed TOILETING: Patient was incontinent of stool, requiring Max A x3 for care. He was able to tolerate static standing in STEDY ~x10 minutes, although demonstrating increased global fatigue. ASSESSMENT: Patient continues to demonstrate improved strength and mobility compared to previous sessions. However, he continues to demonstrate inability to achieve full standing position due to inability to fully extend knees and hips. PLAN: Continue with transfer training and global strengthening for improved mobility. TREATMENT CODE/TIME: 25 minutes; 26105 x2 (10:30)
--- NOTE | 2022-12-16 15:07 | W.PM.PROGNOT ---
Date of Service Date of service: 12/16/22 Time of Service: 15:08 Assessment and Plan Assessment and plan (1) Oropharyngeal dysphagia: Status: Acute Assessment and plan: Continue tube feedings with plan for modified barium swallow on Monday and depending on results of modified barium swallow he will likely need surgical consultation for PEG tube if he is not able to take adequate caloric intake orally. (2) Pneumonia: Status: Resolved Assessment and plan: Patient completed a course of Zosyn for aspiration pneumonitis. He remains off of supplemental oxygen afebrile with normal WBC count and normal procalcitonin. CRP is mildly elevated at 1.93. 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 We will consult with neurology next week. (4) Atrial fibrillation: Assessment and plan: Clinically rhythm seems to be regular. Per his last telemetry strip he was in sinus rhythm. Patient remains on diltiazem 30 mg per NG every 6 hours. (5) Mass of thyroid gland: Status: Acute Assessment and plan: Can follow-up with outpatient dedicated thyroid ultrasound and if indicated referral for biopsy. (6) Sacral decubitus ulcer: Status: Acute Assessment and plan: Stage III sacral decubitus currently being managed by wound care nurse. (7) DVT prophylaxis: Status: Acute Assessment and plan: sc heparin (8) Discharge planning issues: Status: Acute Assessment and plan: Once his modified barium swallow has been completed and decision has been made to proceed with PEG tube and he is tolerating tube feedings through his PEG tube he can be returned to [facility] Subjective Subjective Interval history since last seen: Patient was seen and discussed with his [id number]. I explained to her that he is currently on tube feedings and tolerating this quite well. He completed antibiotic treatment for his pneumonia. I explained to her that we could not get a modified barium swallow this week because of lack of HIGHBALLER coverage. However we plan for modified barium swallow on Monday and therefore he will remain hospitalized through the weekend. There is no acute concerns raised by his [id number]. I discussed with her the probable need for PEG tube placement. It is her understanding that her [id number] would want this and her who is the patient's brother is supportive of this decision. Exam Narrative Exam Narrative: Cesario was initially sleeping when I walked in the room but he opened his eyes looked at me. He has a nonproductive cough with forceful coughing seem to clear his throat. Lungs with a few coarse upper airway sounds that clears after coughing and deep breathing. Lung bases are clear Heart is regular rate and rhythm Abdomen soft nontender Extremities without edema Objective Last Vital Signs Temp 36.2 C L 12/16/22 11:38 Pulse 50 L 12/16/22 11:38 Resp 20 12/16/22 11:38 BP 105/70 12/16/22 11:38 Pulse Ox 95 12/16/22 11:38 Laboratory Results - last 24 hr 12/15/22 12/16/22 12/16/22 16:54 05:55 05:55 WBC RBC Hgb Hct MCV MCH MCHC RDW Plt Count MPV Immature Gran % Neutrophils % Lymphocytes % Monocytes % Eosinophils % Basophils % Nucleated RBC % Absolute Neutrophils Absolute Lymphocytes Absolute Monocytes Absolute Eosinophils Absolute Basophils Sodium 141 Potassium 3.8 3.7 Chloride 108 H Carbon Dioxide 24.9 Anion Gap 8.1 BUN 11 Creatinine 0.6 L Est GFR (CKD-EPI 2020) 100.67 Glucose 111 H Calcium 8.6 C-Reactive Protein 1.93 H Procalcitonin < 0.1 12/16/22 05:55 WBC 4.60 RBC 3.90 L Hgb 12.5 L Hct 38.0 L MCV 97 H MCH 32.1 MCHC 32.9 RDW 12.3 Plt Count 146 MPV 12.3 H Immature Gran % 0.4 Neutrophils % 56.9 Lymphocytes % 23.3 Monocytes % 10.7 Eosinophils % 8.3 Basophils % 0.4 Nucleated RBC % 0.0 Absolute Neutrophils 2.62 Absolute Lymphocytes 1.07 L Absolute Monocytes 0.49 Absolute Eosinophils 0.38 Absolute Basophils 0.02 Sodium Potassium Chloride Carbon Dioxide Anion Gap BUN Creatinine Est GFR (CKD-EPI 2020) Glucose Calcium C-Reactive Protein Procalcitonin Time Spent with Patient Time Spent with Patient: 25-34 minutes Time was spent: preparing to see the patient(eg.review tests), ordering medications,tests, procedures, indepentently interpreting results, counseling the patient (Counseling family) and care coordination
[2022-12-16] MEDS: Pantoprazole 40 MG VIAL IVP (18:17)
[2022-12-16] MEDS: Normal Saline Flush 10 ML SYR IVP ×2 (18:17→20:38)
[2022-12-16] MEDS: Lactated Ringers 1,000 ML 80 ML IV (20:38)
--- NOTE | 2022-12-16 21:05 | NUR.NOTE ---
Nursing Note: At 1930 hrs., Patient received fully awake with NGTube out from left nares, gown soaking wet with feeding. This tag writer attempted reinsert x 2 but not successful, Charge nurse also tried and unable to insert. was notfied by CN and ordered to hold it tonight hat includes po meds scheduled at HS.and LR at 80cc/hr. ordered. Wilkerson draining well on light sammy urine. Charge nurse made aware of B/P 98/72 ,pulse 42. Continue to monitor.
[2022-12-17] VITALS (9 sets, daily range): BP systolic 107–113; BP diastolic 55–74; PULSE 67–92; RESP 1–21; TEMP 36.2–36.9; O2SAT 93–97
[2022-12-17] MEDS: Heparin 5,000 UNITS/ML VIAL 5000 UNITS SC ×3 (01:46→19:43)
[2022-12-17] MEDS: Albuterol/Ipratropium 3 ML UPD VIAL UPD ×2 (03:44→08:49)
[2022-12-17] MEDS: Triamcinolone 0.1% CR 15 GM TUBE TP ×2 (07:51→19:46)
[2022-12-17] MEDS: Lactated Ringers 1,000 ML 80 ML IV (09:06)
[2022-12-17] MEDS: Lidocaine 2% Jelly 6 ML SYR TP (10:45)
--- NOTE | 2022-12-17 10:59 | DI.RAD_ITS ---
Exam(s) XR PORTABLE CHEST AP EXAM: XR PORTABLE CHEST AP CLINICAL HISTORY: portable, confirm tube placement. TECHNIQUE: 2D digital imaging was performed. COMPARISON: CR XR PORTABLE CHEST AP from 12/13/2022 FINDINGS: Single AP portable view. Distal tip of NG tube is in the proximal stomach just beyond the GE junction and should be further ad vanced. Heart size is upper normal. The mediastinum is not widened. Right hemidiaphragm again noted be elevated. No new infiltrates nor pleural effusions. No pulmonary edema. No pneumothorax. IMPRESSION: No acute pulmonary findings on this single AP portable view of the chest. Recommend NG tube be further advanced into the stomach. It is presently just beyond the GE junction. DATA REPOSITORY: RADIATION DOSE DELIVERED:
--- NOTE | 2022-12-17 11:25 | PT.INTREAT ---
Date of service: 12/17/22 Time of Service: 11:26 PT Notes Visit Reasons: Aspiration Pneumonia, Acute Hypoxic Respiratory Fa Inpatient Physical Therapy Treatment Note [facility] Date: 12/17/2022 PRECAUTIONS: Activity as tolerated, STEDY lift only SUBJECTIVE: Cesario is pleasant and indicates that he is agreeable to participating in PT. Patient is very limited in verbal communications, at this time, he is only able to verbally communicate with yes and no, as well as physical gestures, such as pointing. OBJECTIVE: Patient is observed to be more alert today. He has NG tube at this time. PAIN: No c/o pain BED MOBILITY/TRANSFERS Supine-sit: Min A Sit-stand: CGA with use of STEDY Stand-sit: CGA with use of STEDY and cueing for safety Bed-chair: STEDY with SBA GAIT: Not assessed THEREX: Patient was instructed in a resisted global strengthening program, completed in both a seated position and while standing in STEDY, to include: Bicep curls with 3# x10 Punch ups with 3# x10 Shoulder abduction to 90 degrees with 3# x5 with assist Shoulder IR/ER with 3# x10 Modified functional [id number] x5 Weight shifting L/R x3 Modified heel raises x10 TOILETING: Patient was incontinent of stool, requiring Max A x2. ASSESSMENT: Patient continues to demonstrate improved strength and mobility compared to previous sessions. However, he continues to demonstrate inability to achieve full standing position due to inability to fully extend knees and hips. He was able to complete sit<>stand transfer with STEDY and CGA. PLAN: Continue with transfer training and global strengthening for improved mobility. TREATMENT CODE/TIME: 25 minutes; 10871, 32399 (11:26)
--- NOTE | 2022-12-17 11:32 | DI.VRAD_ITS ---
PROCEDURE INFORMATION: Exam: XR Chest Exam date and time: 12/17/2022 10:53 AM Age: 77 years old Clinical indication: Device placement; Other: Portable, confirm tube placement TECHNIQUE: Imaging protocol: Radiologic exam of the chest. Views: 1 view. COMPARISON: CR XR PORTABLE CHEST AP 12/13/2022 2:18 PM FINDINGS: Tubes, catheters and devices: An enteric feeding tube is present, with its tip located in the stomach in good position.. Lungs: Unremarkable. No consolidation. Pleural spaces: Unremarkable. No pleural effusion. No pneumothorax. Heart/Mediastinum: Stable cardiac silhouette Diaphragm: Elevated right hemidiaphragm Bones/joints: Degenerative changes in the glenohumeral joints IMPRESSION: An enteric feeding tube is present, with its tip located in the stomach in good position.. Dictated and Authenticated by: Reyna Menendez MD. Ordering:[facility] Candido Quigley MD
[2022-12-17] MEDS: Carbidopa 25/Levodopa 100 TAB NG ×3 (13:46→19:44)
[2022-12-17] MEDS: dilTIAZem 30 MG TAB NG ×2 (13:46→19:45)
--- NOTE | 2022-12-17 13:46 | W.PM.PROGNOT ---
Date of Service Date of service: 12/17/22 Time of Service: 13:46 Assessment and Plan Assessment and plan (1) Oropharyngeal dysphagia: Status: Acute Assessment and plan: Continue tube feedings with plan for modified barium swallow on Monday and depending on results of modified barium swallow he will likely need surgical consultation for PEG tube if he is not able to take adequate caloric intake orally. (2) Pneumonia: Status: Resolved Assessment and plan: Patient completed a course of Zosyn for aspiration pneumonitis. He remains off of supplemental oxygen afebrile with normal WBC count and normal procalcitonin. CRP is mildly elevated at 1.93. 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 We will consult with neurology next week. (4) Atrial fibrillation: Assessment and plan: Clinically rhythm seems to be regular. Per his last telemetry strip he was in sinus rhythm. Patient remains on diltiazem 30 mg per NG every 6 hours. (5) Mass of thyroid gland: Status: Acute Assessment and plan: Can follow-up with outpatient dedicated thyroid ultrasound and if indicated referral for biopsy. (6) Sacral decubitus ulcer: Status: Acute Assessment and plan: Stage III sacral decubitus currently being managed by wound care nurse. (7) DVT prophylaxis: Status: Acute Assessment and plan: sc heparin (8) Discharge planning issues: Status: Acute Assessment and plan: Once his modified barium swallow has been completed and decision has been made to proceed with PEG tube and he is tolerating tube feedings through his PEG tube he can be returned to [facility] Subjective Subjective Interval history since last seen: No new complaints or concerns. Patient was napping when I walked into the room. His nurse did request a scopolamine patch to help dry up his oral secretions. He seems to be tolerating the tube feedings although he did pull out the NG last night and this was then replaced this morning. Exam Narrative Exam Narrative: Cesario was initially sleeping when I walked in the room but he opened his eyes looked at me. He has a nonproductive cough with forceful coughing seem to clear his throat. Lungs with a few coarse upper airway sounds that clears after coughing and deep breathing. Lung bases are clear Heart is regular rate and rhythm Abdomen soft nontender Extremities without edema Objective Last Vital Signs Temp 36.8 C 12/17/22 12:04 Pulse 92 H 12/17/22 12:04 Resp 17 12/17/22 12:04 BP 111/55 L 12/17/22 12:04 Pulse Ox 96 12/17/22 12:04 Time Spent with Patient Time Spent with Patient: <25 minutes Time was spent: preparing to see the patient(eg.review tests), ordering medications,tests, procedures and care coordination
[2022-12-17] MEDS: Scopolamine 1 MG/3 DAYS PATCH TD (15:38)
[2022-12-17] MEDS: Pantoprazole 40 MG VIAL IVP (18:11)
[2022-12-18 02:58] VITALS: BP 130/83; PULSE 76; RESP 19; TEMP 36.4; O2SAT 95
[2022-12-18] MEDS: dilTIAZem 30 MG TAB NG ×4 (02:59→19:22)
[2022-12-18] MEDS: Heparin 5,000 UNITS/ML VIAL 5000 UNITS SC ×3 (03:06→19:31)
[2022-12-18 06:27] VITALS: BP 106/64; PULSE 64; RESP 20; TEMP 36.3; O2SAT 94
[2022-12-18] MEDS: Cyanocobalamin 500 MCG TAB 1000 MCG NG (09:20)
[2022-12-18] MEDS: Carbidopa 25/Levodopa 100 TAB NG ×4 (09:20→19:20)
[2022-12-18] MEDS: Ascorbic Acid 500 MG TAB NG (09:20)
[2022-12-18] MEDS: Aspirin 81 MG CHEW NG (09:20)
[2022-12-18] MEDS: Benztropine 1 MG TAB NG (09:21)
[2022-12-18] MEDS: Protein Nutritional Supplement 16 GM 1 OUNCE PACKET 2 OUNCE NG (09:21)
[2022-12-18] MEDS: Folic Acid 1 MG TAB NG (09:21)
[2022-12-18] MEDS: Thiamine 100 MG TAB NG (09:24)
[2022-12-18] MEDS: Triamcinolone 0.1% CR 15 GM TUBE TP ×2 (09:28→19:22)
--- NOTE | 2022-12-18 10:09 | W.PM.PROGNOT ---
Date of Service Date of service: 12/18/22 Time of Service: 10:09 Assessment and Plan Assessment and plan (1) Oropharyngeal dysphagia: Status: Acute Assessment and plan: Continue tube feedings with plan for modified barium swallow on Monday and depending on results of modified barium swallow he will likely need surgical consultation for PEG tube if he is not able to take adequate caloric intake orally. Modified barium swallow scheduled for tomorrow. According to Nay Jacobson, CLINICAL SOCIAL WORK THERAPIST her colleague Mica Christy CLINICAL SOCIAL WORK THERAPIST will supervise the modified barium swallow tomorrow. Professional time spent interviewing and examining patient, discussion of goals of care with hospital team (care management, nursing and consulting professionals) was 20 minutes. (2) Pneumonia: Status: Resolved Assessment and plan: Patient completed a course of Zosyn for aspiration pneumonitis. He remains off of supplemental oxygen afebrile with normal WBC count and normal procalcitonin. CRP is mildly elevated at 1.93. 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 We will consult with neurology next week. (4) Atrial fibrillation: Assessment and plan: Heart rhythm sounds to be irregularly irregular controlled rate he has known atrial fibrillation and is currently on diltiazem 30 mg every 6 hours. Not clear as to why he is not on anticoagulation but at this point I will withhold anticoagulation until after decision is made about placement of a permanent feeding tube. (5) Mass of thyroid gland: Status: Acute Assessment and plan: Can follow-up with outpatient dedicated thyroid ultrasound and if indicated referral for biopsy. (6) Sacral decubitus ulcer: Status: Acute Assessment and plan: Stage III sacral decubitus currently being managed by wound care nurse. (7) DVT prophylaxis: Status: Acute Assessment and plan: sc heparin (8) Discharge planning issues: Status: Acute Assessment and plan: Once his modified barium swallow has been completed and decision has been made to proceed with PEG tube and he is tolerating tube feedings through his PEG tube he can be returned to [facility] Subjective Subjective Interval history since last seen: According to patient's nurse he had an uneventful night. He is tolerating his tube feeds. Last bowel movement was yesterday. Per the patient he denies any acute complaints is not having any pain. No nausea. I explained to Cesario that he is going to have a modified barium swallow tomorrow morning and that will help us determine whether or not he is going to need a permanent feeding tube. Exam Narrative Exam Narrative: Cesario is a alert seems to be appropriate and oriented. Speech is slow secondary to his parkinsonism. Lungs are clear to auscultation anteriorly posteriorly there is diminished breath sounds at the bases no rhonchi or rales Heart is irregularly irregular Abdomen soft nondistended normal bowel sounds Extremities without peripheral cyanosis or edema Wilkerson is draining clear pratt yellow urine Objective Last Vital Signs Temp 36.3 C L 12/18/22 06:27 Pulse 64 12/18/22 06:27 Resp 20 12/18/22 06:27 BP 106/64 12/18/22 06:27 Pulse Ox 94 12/18/22 06:27 Time Spent with Patient Time Spent with Patient: <25 minutes Time was spent: preparing to see the patient(eg.review tests), ordering medications,tests, procedures, referring, communicating with other health adult day care worker (Discussion with the patient's primary nurse, Max) and care coordination
[2022-12-18 10:59] VITALS: BP 110/65; PULSE 60; RESP 16; TEMP 36.5; O2SAT 94
[2022-12-18 14:54] VITALS: BP 111/71; PULSE 60; RESP 16; TEMP 36.1; O2SAT 93
[2022-12-18] MEDS: Pantoprazole 40 MG VIAL IVP (18:21)
[2022-12-18 23:02] VITALS: BP 119/75; PULSE 87; RESP 19; TEMP 36.4; O2SAT 92
[2022-12-19] MEDS: Heparin 5,000 UNITS/ML VIAL 5000 UNITS SC ×3 (03:09→21:25)
[2022-12-19] MEDS: dilTIAZem 30 MG TAB NG ×3 (03:09→13:36)
[2022-12-19 05:05] VITALS: BP 166/87; PULSE 63; RESP 18; TEMP 36.6; O2SAT 96
[2022-12-19 06:05] LABS: Abs Immature Grans 0.01 10^3/uL (0.0-0.06); Absolute Basophil Count 0.02 10^3/uL (0.0-0.2); Absolute Eosinophil Count 0.16 10^3/uL (0.0-0.7); Absolute Lymphocyte Count 0.78 10^3/uL (1.2-3.4); Absolute Monocyte Count 0.48 10^3/uL (0.1-0.8); Absolute Neutrophil Count 4.37 10^3/uL (1.2-6.7); Basophils % 0.3; Eosinophils % 2.7; HCT 36.4 % (40.0-50.0); HGB 12.1 g/dL (13.5-17.5); Immature Grans % 0.2; Lymphocytes % 13.4; MCH 31.9 pg (27.0-33.0); MCHC 33.2 % (32.0-36.0); MCV 96 fL (80-95); MPV 11.9 fL (8.0-11.0); Monocytes % 8.2; Neutrophils % 75.2; Platelet Count 167 10^3/uL (130-400); RBC 3.79 10^6/uL (4.36-5.78); RDW 12.3 % (11.8-14.1); RDW-SD 42.9 fL; WBC 5.82 10^3/uL (4.4-10.8)
[2022-12-19 06:16] LABS: ALT 14 U/L (16-63); AST 14 U/L (15-37); Albumin 2.7 g/dL (3.4-5.0); Alkaline Phosphatase 87 U/L (46-116); BUN 12 mg/dL (7-18); Bilirubin, Total 0.3 mg/dL (0.2-1.0); CREATININE 0.7 mg/dL (0.70-1.30); Calcium 8.7 mg/dL (8.5-10.1); Chloride 105 mmol/L (98-107); Estimated GFR 96.09 (mL/min/1.73m2); Glucose 133 mg/dL (74-106); Potassium 3.9 mmol/L (3.5-5.1); Sodium 140 mmol/L (136-145); Total Protein 6.4 g/dL (6.4-8.2)
[2022-12-19 06:43] LABS: Folate 7.6 ng/mL (8.6-20.0); Vitamin B12 701 pg/mL (193-986)
[2022-12-19 07:17] LABS: C-Reactive Protein 2.28 mg/dL (0.0-0.3)
[2022-12-19] MEDS: Carbidopa 25/Levodopa 100 TAB NG ×3 (07:45→16:13)
[2022-12-19] MEDS: Benztropine 1 MG TAB NG (08:24)
[2022-12-19] MEDS: Aspirin 81 MG CHEW NG (08:24)
[2022-12-19] MEDS: Ascorbic Acid 500 MG TAB NG (08:24)
[2022-12-19] MEDS: Protein Nutritional Supplement 16 GM 1 OUNCE PACKET 2 OUNCE NG (08:25)
[2022-12-19] MEDS: Cyanocobalamin 500 MCG TAB 1000 MCG NG (08:25)
[2022-12-19] MEDS: Triamcinolone 0.1% CR 15 GM TUBE TP ×2 (08:25→20:32)
[2022-12-19] MEDS: MULTIVITAMIN NG (08:25)
[2022-12-19] MEDS: Folic Acid 1 MG TAB NG (08:25)
[2022-12-19] MEDS: IRON NG (08:25)
[2022-12-19] MEDS: Thiamine 100 MG TAB NG (08:25)
[2022-12-19] MEDS: Barium Sulfate 40% W/V 240 ML BTL 70 ML PO (09:54)
[2022-12-19] MEDS: Barium Sulfate 81% w/w for Oral Suspension 148 GM BTL 80 GM PO (09:55)
[2022-12-19] MEDS: Barium Sulfate 40% W/V 1500 CPS 250 ML BTL PO (09:56)
[2022-12-19] MEDS: Barium Sulfate Oral Paste 40% W/V 230 ML TUBE PO (09:56)
[2022-12-19] MEDS: Breeza Beverage 473 ML BTL PO (09:58)
[2022-12-19] MEDS: Omnipaque 350 MG/ML 50 ML BTL 25 ML PO (09:59)
--- NOTE | 2022-12-19 10:00 | DI.RAD_ITS ---
Exam(s) RF MODIFIED SPEECH BA SWALLOW TECHNIQUE: Modified barium swallow was performed in conjunction with speech pathology. CONTRAST MATERIAL: Oral barium of multiple consistencies was administered. COMPARISON: No exams were available for comparison FINDINGS: Note that this is not a dedicated esophagram, distal esophagus not evaluated. Speech pathology report to follow. RADIATION DOSE DELIVERED: rubio Cheung=10.0 mGy
--- NOTE | 2022-12-19 10:11 | ST.MBS ---
Date of Service Date of service: 12/19/22 Time of Service: 09:35 Modified Barium Swallow Study Findings: Videofluoroscopic Swallowing Evaluation (VFSE) / Modified Barium Swallow Study (MBSS) Speech Language Pathology Report HPI: Pt is a 77 yo male, SNF resident at [facility], who was readmitted to ED on 12/10/22 for new fever and cough suspected to be r/t aspiration; also with altered mental status and sacral decubitous ulcer. Pt previously tolerating a pureed diet with nectar thick liquids prior to this admission per chart review. Background & Interval Hx: Per RN at [facility], patient has had increasing difficulty managing oral intake prior to this admission. The facility tried honey and pudding thick liquids with no success, and RN stated that on three separate occasions, staff witnessed pt's brother feeding pt with HOB too far back, holding pt's mouth shut until he swallowed; contradicting information received previously re: patient vs brother's desire for PEG placement. Please see Palliative Care note from 12/15/22 re: most recent conversation involving PEG tube decision. PMHx: See EMR Previous Imaging: N/A SUBJECTIVE: Patient is able to confirm via simplified AAC (Y/N with visual aids) that he understood procedure after reviewing steps, able to demonstrate use of chin tuck to trial during study; patient also confirmed that he did take Breeza flavored oral beverage/ Oral Iodinated Contrast by mouth earlier this morning (provided to patient in error; patient reportedly given approx 600 ml of oral contrast beverage by [facility] staff). Initial/baseline videofluoroscopic images do not show contrast from aforementioned oral beverage, this did not appear to effect outcomes of VFSE/MBSS this date. IMPRESSIONS: Swallow safety is impaired; swallow efficiency is impaired - Overall swallowing function does appear to have improved relative to initial admission (ie, patient able to initiate swallow of all trials aside from pudding consistency, c/b xerostomia), possibly due to restarting Sinemat over past few days per Dr. Rey. Moderate chronic oropharyngeal dysphagia, characterized by physiologic deficits as outlined below, and resulting in aspiration of thin liquid residue only; significant vallecular aggregation noted during prolonged mastication > approx. 10-25% of initial masticated bolus remained within vallecular space, then significantly cleared with subsequent nectar thick/IDDSI 2 liquid wash + cue for subsequent swallow. Suspect dysphagia presentation due to chronic parkinsonism symptoms, systemic weakness/incoordination; suspect dysphagia presentation unrelated to documented mass of thyroid gland given physiologic deficits (mainly repetitive motion of tongue initially, with time able to utilize appropriate yet slowed tongue motion for mastication of solid bolus, otherwise slowed tongue motion for all trialed consistencies, delayed pharyngeal swallow initiation with w bolus head at posterior laryngeal surface of epiglottis, reduced tongue base retraction allowing wide column of contrast and/or air between retracted tongue base and posterior pharyngeal wall.) Risk Management & Enteral Feeding:? Effective caregiver-initiated strategies for improving swallow safety and overall comfort as outlined below; recommend thorough caregiver training prior to initiation of oral diet, whether or not enteral feeding via PEG is initiated. Patient appears to continue to be at moderate-high risk for potential aspiration PNA and/or pulmonary compromise and moderate risk for malnutrition, moderate-high risk for dehydration given need for full assist with all po intake and recommendations for modified liquid consistencies and solid textures as outlined below. Patient is also likely to continue aspiration of secretions given severity of dysphagia presentation at this time. Re: surgical consultation for PEG tube - If patient is unable to maintain adequate caloric intake orally with outlined modified diet and staff training in effective swallow strategies, may consider transition to pleasure feeding with supplemental PEG tube feedings. - Although tablet/pills were not tested during MBS today, enteral feeding may also provide a safer route for necessary medications if desired by care team and patient, given possibly improved bioabsorption of current medications via PEG tube vs oral route, some of which may have possibility to mildly increase oropharyngeal swallow efficiency (Sinemat), thus increase comfort levels w swallowing secretions/oral pleasure feedings in d/c setting; for this reason, consultation with Neurology is highly encouraged regarding specific medication and/or dosage changes, particularly related to parkinsonism symptoms. - Previously requested scopalamine patch to dry oral secretions is not recommended at this time, as patient is likely experiencing reduced efficiency of swallow function from xerostomia based on patient communication during MBS today; instead, recommend continued thorough oral care with frequent suctioning as needed, ice chip protocol as outlined.? It should be noted and continually discussed with patient/family that there is a lack of evidence to support improved patient survival or QOL after PEG placement in pts w/ advanced age + chronic dysphagia. Without continued, thorough conversation of risks/benefits of PEG tube placement, burdens of NPO status + PEG placement in this pt w/advanced illness is likely to include poor QOL, continued aspiration of secretions, possible aspiration of tube feedings, persistent malnutrition/dehydration, & increased risk of mortality (Gail Osullivan, 2005). This complex bioethical decision is deferred to the patient?s POA/Sesar/Kang/MAYANK, RD, Physician, and Palliative team with TAKE DOWN INSPECTOR available for further consultation. TAKE DOWN INSPECTOR updated written recommendations in patient's room/chart and communicated recommendations with Dr Rey, boiler or engine operator, and CM this date. Diet modification is indicated; non-oral nutrition is only indicated if deemed necessary by RD and Palliative/Care Team based on patient/caregiver goals of care, nutritional intake, and medication needs. Swallow prognosis is fair/guarded given age, co-morbidities, need for consistent assist with po intake and oral hygiene regimen and pending patient/caregiver training in risk management as outlined, including use of trialed compensatory strategies as outlined. Provided full involvement/training of care team, patient appears to be a fair candidate for behavioral swallow rehabilitation. Specialist referrals: Ongoing support from RD, Neurology, Palliative Care Ancillary tests: N/A ? Diet texture recommendation:? IDDSI Level 4-Pureed Solids Note: TAKE DOWN INSPECTOR may upgrade to level 5 Minced & Moist Solids depending on patient tolerance / ongoing po trials with TAKE DOWN INSPECTOR+care team involvement 2-Mildly Thick Liquids *with administration of ice chips for comfort measures only, with thorough oral care before/after po intake Please see further details at?[email or web address] / Diet texture modification is per patient's preference; please adjust diet textures at patient's discretion & collaboration with care team. RISK MANAGEMENT: Recommend caregiver training prior to initiation of oral diet [x] Behavioral reflux precautions, including upright position during + 30-90 mins after meals. [x] Small bites, approx [id number] [x] Small sips, approx 10 mL [x] Alternate solids/liquids, provide additional time prior to subsequent bite/sip to allow for self-initiated secondary swallow [x] Multiple swallows per bolus to encourage clearance of pharyngeal stasis/residue [x] Encourage avoidance of straws [x] *Controlled intake of single ice chips for comfort measures/pt QOL outside of mealtimes - only with thorough oral care provided before/after po intake of ice chip(s) Control risk factors for aspiration pneumonia via (a) thorough oral hygiene & (b) maintaining physical mobility as tolerated PLAN: Therapy: Recommend subsequent inpatient TAKE DOWN INSPECTOR session while on unit to review results of today's exam and develop treatment plan as appropriate/coordinate with d/c setting as needed. May consider the following: - Discussion with patient/family re: rationale for and patient desire/motivation to attempt respiratory muscle strength training/EMST to address cough strength - Plan for staff training in effective mealtime strategies once d/c to SNF Goal: TBD pending patient/caregiver interview Follow-up exam: N/A Thank you for allowing me to take part in this patient's care. Please feel free to contact me with any questions/concerns. Michelle Christy MA [facility]TAKE DOWN INSPECTOR Speech Language Pathologist [phone] OBJECTIVE: Videofluoroscopic Swallow Evaluation (VFSE/MBSS) was conducted in the lateral projection given physical constraints, by Speech-Language Pathologist, in collaboration with Radiologist, to evaluate oropharyngeal swallow function. Anatomic view under fluoroscopy: [] WFL [x] Other; NG tube visible PO Barium Contrast Trials Oral barium water-soluble contrast was administered as follows: IDDSI Level 0 Varibar thin liquid (40% w/v) - 5ml via tsp, small straw sip, self-administered cup sip IDDSI Level 2 Varibar nectar thick/mildly thick liquid (40% w/v) - 5ml via tsp, cup sip IDDSI Level 3 Varibar thin honey/liquidised/moderately-thick (40% w/v) - 5ml via tsp IDDSI Level 4 Varibar pudding/pureed/extremely thick (40% w/v) - 5ml via tsp (unable to initiate swallow d/t xerostomia) IDDSI Level 7 Regular Solid: 1/4 arturo cracker coated in 3 mL Varibar pudding PHYSIOLOGIC FINDINGS Oral Impairment Domain: 1. Lip Closure -1 2. Tongue Control During Bolus Hold - 1 3. Bolus Preparation/Mastication - 1 4. Bolus Transport/Lingual Motion - 3>2 *For solid bolus: repetitive/disorganized motion of tongue initially, with time able to utilize appropriate yet slowed tongue motion for mastication of solid bolus 5. Oral Residue - 1 6. Initiation of the Pharyngeal Swallow - 2 *Occurred w bolus head at posterior laryngeal surface of epiglottis Pharyngeal Impairment Domain: 7. Soft Palate Elevation - 0 8. Laryngeal Elevation - 1 9. Anterior Hyoid Excursion - 0 10. Epiglottic Movement - 0 11. Laryngeal Vestibular Closure - 1 12. Pharyngeal Stripping Wave - 1 13. Pharyngeal Contraction - N/A 14. Pharyngoesophageal Segment Opening - 0 15. Tongue Base Retraction - 3 *allowed wide column of contrast and/or air between the retracted tongue base and posterior pharyngeal wall (note: more viscous residue trials secured within vallecular space) 16. Pharyngeal Residue - 2 *collection of residue within/on pharyngeal structures, with approx. 10-25% of initial bolus remaining in vallecular space Esophageal Impairment Domain: 17. Esophageal Clearance (upright position) - N/A Results: Oral: 7 Pharyngeal: 8 Esophageal: 0 BRADLEY Severity: LEVEL 3 - Full PO: modified diet and/or independence - Moderate dysphagia; Total assist / supervision or strategies 2 or more diet consistencies restricted Trialed Compensatory Strategies & Outcome: Maneuvers? Successful/Unsuccessful(+/-)? Postures Successful/Unsuccessful(+/-) [] 3 second Preparatory Set? ? [x]Chin Tuck Posture? ?not successful in reducing risk of thin liquid aspiration [x] Cough? ? [] Posterior Head tilt?? ? Reflexive? ?does not initiate ? ? Cued? ?unsuccessful ? ? [] Throat Clear? ? [] Head Tilt to?? ? Reflexive? ? Left? ? Cued? ? Right? ? [x] Saliva swallow? ?successful; self-initiated only after nectar wash [] Head Turn/Rotation to? ? [] Supraglottic Swallow?? ? Left? ? [] Super-supraglottic Swallow?? ? Right? ? Bolus Modifications ? Successful/Unsuccessful (+/-) [x] Delivery/Alternating Consistencies Follow with [place] Liquid Wash/IDDSI Level 2 successful in reducing vallecular residue prior to subsequent swallows [x] Delivery/Via Straw? ?unsuccessful [x] Reduced Volume? ?successful [x] Reduced Rate of Intake? ?successful [x] Increased Viscosity? ?successful [] Other:?? ? Coding CPT Codes MOTION FLUOROSCOPY/SWALLOW - [id number] ([id number])
--- NOTE | 2022-12-19 10:15 | PGE_ITS ---
Date of Service Date of service: 12/19/22 Time of Service: 10:15 Assessment and Plan Assessment and plan (1) Oropharyngeal dysphagia: Status: Acute Assessment and plan: Tube feedings on hold pending performance of his modified barium swallow study. Once we get the results of that we will discuss the findings with with the patient and his brother and consult surgery regarding placement of PEG tube if everyone is in agreement. Professional time spent interviewing and examining patient, discussion of goals of care with hospital team (care management, nursing and consulting professionals) was 15 minutes. (2) Pneumonia: Status: Resolved Assessment and plan: Patient completed a course of Zosyn for aspiration pneumonitis. He remains off of supplemental oxygen afebrile with normal WBC count and normal procalcitonin. 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 Neurology consult is pending (4) Atrial fibrillation: Assessment and plan: Heart tones are irregularly irregular but at a controlled rate. He remains on diltiazem 60 mg per NG every 6 hours. Patient's not anticoagulated other than daily aspirin 81 mg daily. (5) Mass of thyroid gland: Status: Acute Assessment and plan: Can follow-up with outpatient dedicated thyroid ultrasound and if indicated referral for biopsy. (6) Sacral decubitus ulcer: Status: Acute Assessment and plan: Stage III sacral decubitus currently being managed by wound care nurse. (7) DVT prophylaxis: Status: Acute Assessment and plan: sc heparin (8) Discharge planning issues: Status: Acute Assessment and plan: Once his modified barium swallow has been completed and decision has been made to proceed with PEG tube and he is tolerating tube feedings through his PEG tube he can be returned to [facility] Subjective Subjective Interval history since last seen: No new concerns. Patient denies any pain. Tube feedings on hold pending his modified barium swallow which is to be performed today. Exam Narrative Exam Narrative: Patient is alert sitting up in his chair watching TV. No acute distress. Lungs are clear to auscultation anteriorly Heart is irregularly irregular Abdomen soft nondistended normal bowel sounds Lower extremities without peripheral cyanosis or edema Objective Last Vital Signs Temp 36.6 C 12/19/22 05:05 Pulse 63 12/19/22 05:05 Resp 18 12/19/22 05:05 BP 166/87 H 12/19/22 05:05 Pulse Ox 96 12/19/22 05:05 Laboratory Results - last 24 hr 12/19/22 12/19/22 12/19/22 05:38 05:38 05:38 WBC 5.82 RBC 3.79 L Hgb 12.1 L Hct 36.4 L MCV 96 H MCH 31.9 MCHC 33.2 RDW 12.3 Plt Count 167 MPV 11.9 H Immature Gran % 0.2 Neutrophils % 75.2 Lymphocytes % 13.4 Monocytes % 8.2 Eosinophils % 2.7 Basophils % 0.3 Nucleated RBC % 0.0 Absolute Neutrophils 4.37 Absolute Lymphocytes 0.78 L Absolute Monocytes 0.48 Absolute Eosinophils 0.16 Absolute Basophils 0.02 Sodium 140 Potassium 3.9 Chloride 105 Carbon Dioxide 27.0 Anion Gap 8.0 BUN 12 Creatinine 0.7 Est GFR (CKD-EPI 2020) 96.09 Glucose 133 H Calcium 8.7 Total Bilirubin 0.3 AST 14 L ALT 14 L Alkaline Phosphatase 87 C-Reactive Protein 2.28 H Total Protein 6.4 Albumin 2.7 L Vitamin B12 701 Folate 7.6 L Time Spent with Patient Time Spent with Patient: <25 minutes Time was spent: preparing to see the patient(eg.review tests), ordering medications,tests, procedures, indepentently interpreting results and care coordination
--- NOTE | 2022-12-19 11:18 | CMPROGNOTE_ITS ---
- If Service Date Differs Date of service: 12/19/22 Time of Service: 11:18 Care Management Progress Note S/O: Cesario is lying in bed when CM met with him. His brother Sesar is in the room and would like updates, if available. notified . Cesario continues to receive PN nutrition through his NG Tube, which [facility] is unable to accommodate. Michlele patterson met with Cesario today reported to CM that her recommendation would be to trial pureed solids and mildly thick fluids. If PO intake is not adequate after a few days she recommends a Palliative consult, followed by surgical consult for a PEG tube. CM will continue to follow. A: 77 year old male admitted to [facility] on 12/10/22 for Aspiration Pneumonia, Acute Hypoxic Respiratory Failure. P: Cesario continues to receive PV nutrition via NG Tube, which [facility]. A modified barium swallow is needed to determine terminal make up operator feeding options. ST is following. Anticipate, Cesario will return to [facility] if able to tolerate PO intake or with a permanent feeding tube. CM will continue to follow.
[2022-12-19 13:30] VITALS: BP 120/80; PULSE 79
--- NOTE | 2022-12-19 14:36 | PT.INPN ---
Date of service: 12/19/22 Time of Service: 08:42 PT Notes Visit Reasons: Aspiration Pneumonia, Acute Hypoxic Respiratory Fa Physical Therapy Inpatient Progress Note Date: 12/19/2022 Dates of Service: 12/11/2022 through 12/19/2022 Referring Doctor: Danita Marquez MD PT Orders: PT CONSULT: Limited ability Precautions: Fall. Standard. Dysphagia. Dysphasic. Patient Profile/Admitting Diagnosis:? Cesario is a 77 yo male who presented to the ER on 12/10/22 from rehab facility with fever, altered mental status, and possible aspiration. Also found to have sacral decubitous ulcer. Subjective:? Agreeable to getting out of bed and transferring to the chair using STEDY lift/sit-stand machine. Objective:? General Observation: In NAD. NGT in place but temporarily disconnected. Mental Status: Alert and oriented as to person. Able to follow single-step commands. Pain: No verbal and non-verbal expression of pain ROM: Right Upper Extremity: Shoulder Flexion allows up to about 90 degrees actively. Shoulder abduction allows up to about 80 degrees actively. Elbow flexion WFL. Wrist flexion WFL. Opening and closing of hand WFL. Left Upper Extremity: Shoulder Flexion allows up to about 90 degrees actively. Shoulder abduction allows up to about 80 degrees actively. Elbow flexion WFL. Wrist flexion WFL. Opening and closing of hand WFL. Right Lower Extremity: Hip flexion about 10 degrees (beyond 90) while seated on chair. Hip abduction about 10 degrees. Knee flexion limited to 90 degrees. Knee extension limited -20 degrees. Ankle dorsiflexion to neutral only. Ankle plantarflexion WFL. Left Lower Extremity: Hip flexion about 10 degrees (beyond 90) while seated on chair. Hip abduction about 10 degrees. Knee flexion limited to 90 degrees. Knee extension limited -20 degrees. Ankle dorsiflexion to neutral only. Ankle plantarflexion WFL. Strength: Right Upper Extremity: Shoulder flexors 3-/5. Shoulder abductors 3-/5. Elbow flexors 4-/5. Elbow extensors 4-/5. Netsuite Developer weak but functional. Left Upper Extremity: Shoulder flexors 3-/5. Shoulder abductors 3-/5. Elbow flexors 4-/5. Elbow extensors 4-/5. Netsuite Developer weak but functional. Right Lower Extremity: Hip flexors 3-/5. Knee flexors 3-/5. Knee extensors 3-/5. Ankle dorsiflexors 3-/5. Ankle plantarflexors 4/5. Left Lower Extremity: Hip flexors 3-/5. Knee flexors 3-/5. Knee extensors 3-/5. Ankle dorsiflexors 3-/5. Ankle plantarflexors 4/5. Sensation:? Intact as to pain and pressure in bilateral lower extremities. Bed Mobility/Transfers:? Supine-sit: minimal assist Sit-stand: CGA with use of STEDY ? Stand-sit: CGA with use of STEDY and cueing for safety Bed-chair: SBA using STEDY lift Gait:? Unable Balance:? Static Sitting: Fair Dynamic Sitting: Poor Static Standing: Poor Dynamic Standing: Unable Special Tests: Mobility Limitations Standardized Measure [facility] 6 clicks Basic Mobility Inpatient Short Form: Raw Score: 11 ? CMS Score: 73% deficit Informed Consent/Education:? Patient was instructed in purpose of PT consult and plan of care. Agreeable to proceed with established PT POC to achieve personal goals. Assessment: Patient is demonstrating improvement in mobility level as evidenced by current mobility level above and goal status below. Still requires the use of a STEDY lift due to safety issues and continued generalized weakness. Goals will be upgraded below to progress mobility level. Patient presents with clinical signs and symptoms consistent with current/admitting diagnoses that have resulted to mobility limitations, gait instability, generalized weakness, and impairment of motor control as demonstrated by the following impairment level findings: 1. Decreased strength to major muscle groups 2. Impaired sitting/standing balance 3. Impaired activity tolerance 4. Limitation of joint range of motion in shoulders and hips Impairments are contributing to the following functional limitations: 1. Dependent bed mobility skills 2. Dependent with transfers 3. Dependent for ADL performance 4. [facility] deficit score of 73% (compared to 100% deficit score at time of evaluation) Patient is assessed as a 71778 moderate complexity based on the following: History: 77 year old male with impairment level findings, functional limitations, and past medical history as indicated above Examination: Demonstrable impairment in strength, balance, and mobility level with underlying impairments and functional limitations as documented above Presentation: Evolving Decision Makin moderate complexity Goals: Goals x1 week 1. Supine-Sit: Min A MET, PROGRESS TO STAND BY ASSIST 2. Sit-Supine: Min A MET, PROGRESS TO STAND BY ASSIST 3. Sit-Stand: Min A with stedy lift MET, PROGRESS TO MINIMAL ASSIST USING FWW 4. Stand-Sit: Min A with stedy lift MET, PROGRESS TO MINIMAL ASSIST USING FWW 5. Good static and dynamic sitting balance NOT MET, CONTINUE Plan of Care/Treatment Plan: 1-2x/day, 7 days/week x 1 week. Plan of care has been reviewed with the DANCE COACH providing the service under Physical Therapy direction. Initiate Physical Therapy intervention for strengthening, bed mobility, transfers, gait, stairs, balance training, and use of assistive device. Discharge Plan DISCHARGE RECOMMENDATIONS: return to SNF for continued rehabilitation TREATMENT CODE/TIME: 70752 x 22 minutes beginning at 8:42 AM. Thank you for the opportunity to participate in the care of this patient. Penelope Cruz PT, DPT, CLT [facility] [place], [place]
[2022-12-19 14:52] VITALS: BP 108/70; PULSE 67; RESP 18; TEMP 36.9; O2SAT 96
[2022-12-19] MEDS: Normal Saline Flush 10 ML SYR IVP (18:35)
[2022-12-19] MEDS: Pantoprazole 40 MG VIAL IVP (18:35)
--- NOTE | 2022-12-19 18:43 | NUR.NOTE ---
Nursing Note: Attempted to feed patient dinner w/ the rules set by the TRENCH DIGGER. Patient had multiple episodes of coughing despite feeding the patient according to the TRENCH DIGGER recommendations. Did not feel comfortable feeding patient more with the multiple coughing episodes. Patient was sitting in chair for dinner during all of this. Patient will continue to sit in chair for night RN to attempt medications per TRENCH DIGGER recommendations.
[2022-12-19] MEDS: dilTIAZem 30 MG TAB PO (20:12)
[2022-12-19] MEDS: Carbidopa 25/Levodopa 100 TAB PO (20:13)
[2022-12-19] MEDS: Folic Acid 1 MG TAB PO (20:16)
[2022-12-19 23:13] VITALS: BP 110/70; PULSE 65; RESP 18; TEMP 36.9; O2SAT 96
[2022-12-20] MEDS: dilTIAZem 30 MG TAB PO ×4 (03:02→20:59)
[2022-12-20] MEDS: Heparin 5,000 UNITS/ML VIAL 5000 UNITS SC ×3 (04:37→20:59)
[2022-12-20 07:11] VITALS: BP 118/71; PULSE 62; RESP 16; TEMP 36.5; O2SAT 95
[2022-12-20] MEDS: Protein Nutritional Supplement 16 GM 1 OUNCE PACKET 2 OUNCE PO (08:34)
[2022-12-20] MEDS: Carbidopa 25/Levodopa 100 TAB PO ×3 (08:35→15:36)
[2022-12-20] MEDS: Thiamine 100 MG TAB PO (08:35)
[2022-12-20] MEDS: Cyanocobalamin 500 MCG TAB 1000 MCG PO (08:36)
[2022-12-20] MEDS: Aspirin 81 MG CHEW PO (08:36)
[2022-12-20] MEDS: Ascorbic Acid 500 MG TAB PO (08:37)
[2022-12-20] MEDS: Benztropine 1 MG TAB PO (08:37)
[2022-12-20] MEDS: Folic Acid 1 MG TAB PO ×2 (08:37→20:59)
[2022-12-20] MEDS: Triamcinolone 0.1% CR 15 GM TUBE TP ×2 (08:38→21:00)
--- NOTE | 2022-12-20 08:57 | PGE_ITS ---
Date of Service Date of service: 12/20/22 Time of Service: 08:57 Assessment and Plan Assessment and plan (1) Oropharyngeal dysphagia: Status: Acute Assessment and plan: Tube feedings were stopped yesterday and he began a trial of pur?ed diet with thickened liquids. This started with supper last night and he seems to be doing okay with breakfast. We will watch him today and if he has no aspiration events we will plan on discharge back to the long-term tomorrow morning. Professional time spent interviewing and examining patient, discussion of goals of care with hospital team (care management, nursing and consulting professionals) was 20 minutes. (2) Pneumonia: Status: Resolved Assessment and plan: Patient completed a course of Zosyn for aspiration pneumonitis. He remains off of supplemental oxygen afebrile with normal WBC count and normal procalcitonin. 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 Neurology consult is pending (4) Atrial fibrillation: Assessment and plan: Heart tones sound to be regular. His A-fib seems to be paroxysmal. He remains on diltiazem 60 mg per NG every 6 hours. Patient's not anticoagulated other than daily aspirin 81 mg daily. (5) Mass of thyroid gland: Status: Acute Assessment and plan: Can follow-up with outpatient dedicated thyroid ultrasound and if indicated referral for biopsy. (6) Sacral decubitus ulcer: Status: Acute Assessment and plan: Stage III sacral decubitus currently being managed by wound care nurse. (7) DVT prophylaxis: Status: Acute Assessment and plan: sc heparin (8) Discharge planning issues: Status: Acute Assessment and plan: Once his modified barium swallow has been completed and decision has been made to proceed with PEG tube and he is tolerating tube feedings through his PEG tube he can be returned to [facility] Subjective Subjective Interval history since last seen: Patient is sitting up in a chair he is having his breakfast nursing is actively working with feeding him. Seems to be tolerating thickened liquids and pur?ed foods. He does need frequent reminders to double swallow and chin tuck. Nursing reports he tried feeding himself but nursing intervened and 2 nurses are in the room with him actively working on feeding him. They report no events overnight. Exam Narrative Exam Narrative: Cesario is alert responsive to the nurses. He has a positive words which is his usual baseline from his parkinsonism. Lungs are clear to auscultation anteriorly posteriorly has some diminished breath sounds at the bases but no rhonchi or rales or wheezes Heart is regular rate and rhythm no appreciable murmur rub or gallop Abdomen soft nontender nondistended Lower extremities without peripheral cyanosis or edema. Extremities are stiff however he did not have his morning Parkinson medicine which is just being given to him now. I did ask pharmacy to try to time his Sinemet so it is given an hour before his meals which should help with feedings. Objective Last Vital Signs Temp 36.5 C 12/20/22 07:11 Pulse 62 12/20/22 07:11 Resp 16 12/20/22 07:11 BP 118/71 12/20/22 07:11 Pulse Ox 95 12/20/22 07:11 Laboratory Results - last 24 hr 12/19/22 12/19/22 05:38 05:38 WBC 5.82 RBC 3.79 L Hgb 12.1 L Hct 36.4 L MCV 96 H MCH 31.9 MCHC 33.2 RDW 12.3 Plt Count 167 MPV 11.9 H Immature Gran % 0.2 Neutrophils % 75.2 Lymphocytes % 13.4 Monocytes % 8.2 Eosinophils % 2.7 Basophils % 0.3 Nucleated RBC % 0.0 Absolute Neutrophils 4.37 Absolute Lymphocytes 0.78 L Absolute Monocytes 0.48 Absolute Eosinophils 0.16 Absolute Basophils 0.02 Sodium 140 Potassium 3.9 Chloride 105 Carbon Dioxide 27.0 Anion Gap 8.0 BUN 12 Creatinine 0.7 Est GFR (CKD-EPI 2020) 96.09 Glucose 133 H Calcium 8.7 Total Bilirubin 0.3 AST 14 L ALT 14 L Alkaline Phosphatase 87 Total Protein 6.4 Albumin 2.7 L Time Spent with Patient Time Spent with Patient: <25 minutes Time was spent: preparing to see the patient(eg.review tests), ordering medications,tests, procedures, referring, communicating with other health career development associate and care coordination
[2022-12-20 10:10] LABS: Prealbumin 17 mg/dL (20-40)
[2022-12-20] MEDS: IRON PO (11:24)
[2022-12-20] MEDS: MULTIVITAMIN PO (11:24)
--- NOTE | 2022-12-20 11:50 | PDOC.CMPRO ---
- If Service Date Differs Date of service: 12/20/22 Time of Service: 11:50 Care Management Progress Note S/O: Per provider, Cesario had a trial today of being fed without the NG tube, which was not successful. Surgery has been consulted to consider a PEG tube to support his nutritional intake. CM communicated this change with [facility]. His plan remains to return to [facility] once he is medically stable. CM will continue to follow. A: 77 year old male admitted to [facility] on 12/10/22 for Aspiration Pneumonia, Acute Hypoxic Respiratory Failure. P: Cesario continues to receive PV nutrition via NG T[facility], [facility]. A modified barium swallow is needed to determine protocol manager feeding options. ST is following. Anticipate, Cesario will [facility] if able to tolerate PO intake or with a permanent feeding tube. CM will continue to follow.
--- NOTE | 2022-12-20 12:15 | PT.INTREAT ---
PT Notes Visit Reasons: Aspiration Pneumonia, Acute Hypoxic Respiratory Fa Date: 12/20/2022 PRECAUTIONS: Activity as tolerated SUBJECTIVE: Pt in recliner when approached for therapy this morning, pt able to follow single worded instructions, pt agrees to participating with therapy. OBJECTIVE: pt with Wilkerson catheter. ? PAIN: No c/o pain ? BED MOBILITY/TRANSFERS? Sit-stand: FWW mod A +2? Stand-sit: FWW min A +2 Therapeutic Activities [id number]: instruction in dynamic activities with one on one patient contact by the provider to improve functional performance?as follows: Static standing using FWW with verbal and tactile cue for terminal knee extension to be able to stay upright Static standing with multidirectional weight shifting Triceps push ups using armrest Scoot backwards in the recliner for safety and comfort. ? ASSESSMENT:? pt requires max verbal and tactile cue for terminal knee extension, continue to use STEDY lift for nursing for safety as pt is still not able to fully extend his knees during standing activity. PLAN: Continue with transfer training and global strengthening for improved mobility. TREATMENT CODE/TIME: 30 minutes; [id number] (11:00-11:30am)
--- NOTE | 2022-12-20 12:42 | W.NUTCONSULT ---
Date of service: 12/20/22 Time of Service: 12:42 Nutritional Consult ASSESSMENT: reports feeding trial of puree/mildly thick liquids did not go well. Plan is for surgery to place PEG and for Cesario to return when medically stable to [facility]. Estimated Needs:? BEE using adjusted body weight : 1460 x 1.2 AF = 1756 kcal, 98 g protein (1.3 x ABW), 1800 ml fluid Once peg placed, recommend transition to bolus feedings as will be following this regime at [facility]. Bolus feedings: 250 ml Nutren 2.0 : 4 times daily, Free water flush 325 ml 4 times daily. Provides total of 2000 kcal, 84 g protein, 2000 ml fluid. Bed at 30 degree angle during day and up to 2 hours after a feeding. Time Spent in Nutritional Counseling and Treatment: 0
[2022-12-20] MEDS: Scopolamine 1 MG/3 DAYS PATCH TD (14:19)
[2022-12-20 14:33] VITALS: BP 110/64; PULSE 42; RESP 16; TEMP 36.2; O2SAT 94
--- NOTE | 2022-12-20 16:29 | NCONE_ITS ---
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 He has had proression particularly in the last one year in regards to his dysphagia and is now wheelchair bound. His PD symptoms improved after re-starting his Sinemet and thus he is still getting benefit. Thus, many benefit from an increase. -increase Sinemet to 25/250mg QID at 0700, 1100, 1600, and 2000. -increase entacapone to 200mg QID at 0700, 1100, 1600, and 2000 (should be given with Sinemet) -ok to continue amantadine 100mg TID for now. Consider stopping HS dose if concerns for insomnia. This medication is renally dosed. -ok to continue benztropine, however if concern for dry mouth, would consider weaning/stopping. Also this may be contributing to memory loss... I have requested his more recent neurology records from [facility]. In regards to feeding tube, I discussed with his brother Sesar and Dougie's today. They affirm that he is interested in PEG tube - note, that he was unable to affirm or deny wanting PEG for me at my visit this evening. They support this decision as they feel he is still happy with his life. Discussed that his PD will continue to progress regardless of this decision and his aspiration risk will not decrease. I will continue to follow. He will need neurology f/up after discharge. History of Present Illness Narrative: Handedness: LEFT. HPI: Mr. Moralez is a 77 year-old with schizophrenia, Parkinsons, paroxysmal atrial fibrillation not on anticoagulation, hypertension, hyperlipidemia, anemia of chronic disease, CKD, and BPH. His brother Dougie and his are bedside with Cesario. Cesario is non-verbal but by report can answer yes/no questions and can write answers as well. He did not do either of those for me today. Cesario was admitted on 12/10/22 for fever secondary to aspiration pneumonia. He had a recent admission 11/24/22-11/28/22 for AMS secondary to urospesis complicated by aspiration pneumonia and sacral decubitus ulcer. He has just moved to this area in late Oct 2022 - to [facility] and rehab - after his senior living in [place] closed. Per Dougie, he has lived in a senior living for 7+ years. He believes he was previously seen by neurologist Dr. Luo in [place] remotely. I do not have access to those records. I did find a single neurology visit note with Dr. Call at [facility] in 2009. Per those records, Cesario developed PD symptoms in ~2006 with a LUE resting tremor. Dr. Call suspected that his PD was a mix of idiopathic and neurleptic-induced (Cesario was diagnosed with schizophrenia in his early 20s). In 2009, he was on Sinemet ER 25/100 x2 TID, entacapone 200mg TID, amantadine 100mg BID, benztropine 0.5mg daily, and Zyprexa 10mg HS. He had previous mood ADRs with pramipexole. Family note a slow decline over time. It's not clear how long he has been non- verbal for. His dysphagia has worsened slowly over time such that he has been on a pureed diet for the last one year. He has been wheelchair bound since summer 2021. Family note further significant decline since early this year/illness particularly with swallowing. He was initially NPO upon admission due to aspiration risk and was not getting his Sinemet. NG tube placed for medical care manager and nutrition with improvement in PD symptoms and alertness/energy. He is currently on Sinemet 25/100mg x 2 QID, entacapone 200mg tID, amantadine 100mg BID, and benztropine 1mg daily. Somewhat unusual. QID times changed today to occur 1 hour prior to meals and per nursing he has had improvement in swallowing with this change. He was having increased drooling for which scopolapine patch was placed. Now with dry mouth it seems. regardless of above, it is taking a significant amount of time and effort to get calories in him and it does not appear that he can maintain his caloric need orally. MBSS performed yesterday 12/19/22 shows moderate dysphagia with ongoing significant risk of aspiration PNA. Cesario and family have discussed PEG placement and both seem interested. They feel he still enjoys his life and has QOL for which to maintain nutrition. Review of Systems All systems reviewed & are unremarkable except as noted in HPI and below PFSH All Active Problems Palliative care patient (Acute) Aspiration pneumonia (Acute) Oropharyngeal dysphagia (Acute) Advanced care planning/counseling discussion (Acute) Mass of thyroid gland (Acute) Discharge planning issues (Acute) DVT prophylaxis (Acute) Hypernatremia (Acute) Folate deficiency (Acute) B12 deficiency (Acute) [place] (acute kidney injury) (Acute) Sacral decubitus ulcer (Acute) Indwelling Wilkerson catheter present (Acute) Communication deficit (Acute) Unable to walk (Acute) Dysphagia (Acute) 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) Schizoaffective disorder (Acute) Sepsis (Acute) UTI (urinary tract infection) (Acute) Pneumonia (Acute) Medical History Atrial fibrillation BPH (benign prostatic hyperplasia) Chronic kidney disease HTN (hypertension) Hx of hyperlipidemia Parkinsons disease Social History Smoking/Tobacco Use Status: Never Smoking risk assessment performed?: Yes Substance use type: does not use Visit Medication and Allergies Active Medications Generic Name Dose Route Start Last Admin Trade Name Freq PRN Reason Stop Dose Admin Acetaminophen 650 mg 12/19/22 20:00 Acetaminophen Solution 650 Mg/20.3 Ml Cup PO Q6H PRN PRN Albuterol Sulfate 2.5 mg 12/10/22 13:06 Albuterol 2.5 Mg/3 Ml Inh Soln Vial UPD Q2H PRN PRN Albuterol/Ipratropium 3 ml 12/17/22 16:28 Albuterol/Ipratropium 3 Ml Upd Vial UPD Q6H PRN PRN dyspnea Amantadine HCl 100 mg 12/19/22 20:00 12/20/22 14:19 Amantadine 100 Mg Cap PO 100 mg TID TIFFANI Administration Ascorbic Acid 500 mg 12/20/22 08:30 12/20/22 08:37 Ascorbic Acid 500 Mg Tab PO 500 mg DAILY TIFFANI Administration Aspirin 81 mg 12/20/22 08:30 12/20/22 08:36 Aspirin 81 Mg Chew PO 81 mg DAILY TIFFANI Administration Benztropine Mesylate 1 mg 12/20/22 08:30 12/20/22 08:37 Benztropine 1 Mg Tab PO 1 mg DAILY TIFFANI Administration Bisacodyl 10 mg 12/10/22 13:10 Bisacodyl 10 Mg Supp MT DAILY PRN PRN IF NO RESULT FROM mom OR MIRALAX Carbidopa/Levodopa 2 tab 12/20/22 11:00 12/20/22 15:36 Carbidopa 25/Levodopa 100 Tab PO 2 tab QID@0700,1100,1600,1999 TIFFANI Administration Clotrimazole 40 gm/ Zinc Oxide 0 gm 12/15/22 20:00 12/20/22 08:39 40 gm/ Vitamin A/Vitamin D 40 TP 1 applicatio gm BID TIFFANI Administration Cyanocobalamin 1,000 mcg 12/20/22 08:30 12/20/22 08:36 Cyanocobalamin 500 Mcg Tab PO 1,000 mcg DAILY TIFFANI Administration Diltiazem HCl 30 mg 12/19/22 20:00 12/20/22 14:19 Diltiazem 30 Mg Tab PO 30 mg Q6H TIFFANI Administration Dimethicone/Zinc Oxide 0 gm 12/10/22 13:01 Boris Protect Cream 142 Gm Tube TP PRN PRN Entacapone 200 mg 12/20/22 11:00 12/20/22 11:22 Entacapone 200 Mg Tab PO 200 mg TID@0700,1100,1999 TIFFANI Administration Folic Acid 1 mg 12/19/22 20:00 12/20/22 08:37 Folic Acid 1 Mg Tab PO 1 mg BID TIFFANI Administration Heparin Sodium (Porcine) 5,000 units 12/17/22 20:00 12/20/22 12:38 Heparin 5,000 Units/Ml Vial SC 5,000 units Q8H TIFFANI Administration Sodium Chloride 500 mls @ 0 mls/hr 12/13/22 03:33 12/13/22 05:20 Saline 500ml Bag IV 0 mls/hr PRN PRN Infusion As Directed IV Miscellaneous Supplies 1 each 12/10/22 10:00 Iv Access IV DIRECTED TIFFANI Lidocaine HCl 6 ml 12/17/22 10:30 12/17/22 10:45 Lidocaine 2% Jelly 6 Ml Syr TP 6 ml DIRECTED TIFFANI Administration Multi-Ingredient Supplement 2 ounce 12/20/22 08:30 12/20/22 08:34 Protein Nutritional Supplement 16 Gm 1 Ounce Packet PO 2 ounce DAILY TIFFANI Administration Multivitamins/Iron 1 ml 12/20/22 08:30 12/20/22 11:24 Multivitamin W/Iron Drops 50 Ml Btl PO 1 ml DAILY TIFFANI Administration Pantoprazole Sodium 40 mg 12/10/22 18:00 12/19/22 18:35 Pantoprazole 40 Mg Vial IVP 40 mg Q24H TIFFANI Administration Scopolamine HBr 1 mg 12/17/22 14:00 12/20/22 14:19 Scopolamine 1 Mg/3 Days Patch TD 1 mg Q72H TIFFANI Administration Sodium Chloride 0 ml 12/10/22 09:59 12/19/22 18:35 Normal Saline Flush 10 Ml Syr IVP 30 ml PRN PRN Administration Thiamine HCl 100 mg 12/20/22 08:30 12/20/22 08:35 Thiamine 100 Mg Tab PO 100 mg DAILY TIFFANI Administration Triamcinolone Acetonide 0 gm 12/10/22 20:00 12/20/22 08:38 Triamcinolone 0.1% Cr 15 Gm Tube TP 1 applic BID TIFFANI Administration Allergies No Known Allergies Allergy (Verified 11/06/18 16:28) Exam Narrative Exam Narrative: Physical Exam: Gen: Patient of apparent stated age, NAD; moderate hypomimia Head and face: no facial or cranial abnormalities Neck: Supple, no meningismus, no occipital tenderness CV: + S1, S2, RRR, no murmur Resp: CTA B/L Abd: soft, nontender, nondistended Ext: Bilateral LE edema noted. No clubbing or cyanosis. No bony deformity. Neuro Exam: Language: non-verbal Mental Status: awake and alert; I couldn't really get him to answer any yes/no questions or anything otherwise; he would look at me but not respond; though he was able to comply with motor exam Speech: non-verbal Cranial nerves: Funduscopy: not performed CN II: visual leon appear intact by threat CN III, IV, : extraocular movements intact, no nystagmus, pupils symmetric and reactive to light CN V: face sensation intact to PP CN VII: no facial asymmetry noted CN VIII: hearing intact CN IX, X: palate rises symmetrically CN XI: trapezius/SCM 5/5 bilaterally CN XII: protrudes tongue symmetrically Sensory: intact to PP in all extremities; unable to test other modalities due to non-verbal status Motor: bulk intact. Bilateral cogwheel rigidity. Fine motor movements reduced bilaterally. Moderate-severe diffuse bradykinesia, worse in the RUE. No pronator drift. Strength 4/5 bilateral UE; 3+/5 bilateral LE. Intermitent LUE resting, pill-rolling tremor. Reflexes: hypreflexic throughout; toes down going bilaterally; Coordination: FTN intact bilaterally; unable to test HTS due to weakness Gait: he is non-ambulatory Results Last Vital Signs Temp 97.2 F L 12/20/22 14:33 Pulse 42 L 12/20/22 14:33 Resp 16 12/20/22 14:33 BP 110/64 12/20/22 14:33 Pulse Ox 94 12/20/22 14:33 Labs 12/19/22 05:38 12/19/22 05:38 Labs: Laboratory Results - last 24 hr 12/19/22 05:38 Prealbumin 17 L
--- NOTE | 2022-12-20 16:50 | W.SURGCON ---
Date of service: 12/20/22 Time of Service: 16:50 Assessment and Plan Assessment and plan (1) Aspiration pneumonia: Status: Acute (2) Oropharyngeal dysphagia: Status: Acute Assessment and plan: - Speech and nutrition evaluations reviewed and appreciated -His brother is CARLOS. Both he and Cesario have indicated that they do wish to proceed with PEG tube placement. We discussed the pros and cons of placing a feeding tube today. We discussed what he could expect during the procedure recovery time and risks including but not limited to: Reactions to the anesthesia/Pain/Leakage of stomach contents around the tube/Infection of the tube site/Infection that spreads inside the belly/Aspiration/Bleeding from the incision area/Bleeding or infection from damage to other organs inside the belly/Blockage or dislodging?of the tube/diarrhea from tube feedings/and inadvertent dislodgment which may result in laparotomy. We will plan on tube placement sometime on . We will start tube feedings on Monday and most likely transfer back to [facility] and rehab Monday or Monday depending on how Cesario does with the procedure and how he tolerates, the tube feedings. 60 mins spent with the patient today. (3) Atrial fibrillation: (4) Chronic kidney disease: (5) Hx of hyperlipidemia: (6) Parkinsons disease: (7) HTN (hypertension): (8) Indwelling Wilkerson catheter present: Status: Acute (9) Unable to walk: Status: Acute (10) Dysphagia: Status: Acute (11) Parkinsonism due to drugs: Status: Acute (12) Schizoaffective disorder: Status: Acute History of Present Illness Narrative: Cesario is being seen today for consideration of a feeding tube. He continues to have aspiration pneumonia and oropharyngeal dysphasia secondary to Parkinson's from chronic medication use. I did review speech evaluations and recommendations. He is clearly not taking enough calories to sustain himself. Cesario and his brother have made there decisions clear to staff and care providers that he does want to have a feeding tube placed. I did discuss with them that there are still considerations for aspiration even if he has a feeding tube placed, as well as other complications. Also longevity, is not impacted by the nutrition from feeding tube. And feeding tube nutrition is often complicated by diarrhea and other factors. They still wish to proceed with the procedure. We reveied what the procedure would initial and risk vs benefits including but not limited to: bleeding/infection/pneumonia/blood clots/damage to stomach/colon/intestines/anesthesia ([place] or CVA). There is still risks of aspiration and diarrhea and malnutrition. IF the tube gets removed before two weeks, than he may require laparotomy. He will require regular tube changes and maintenance of the tube. His brother states that he has never had any abdominal surgery. He is not aware that Cesario has had any surgeries or any anesthesia in the past. Sesar is his power of sheet rock installation helper for medical decision making. Cesario resides at [facility] and rehab He is not on any blood thinners Cesario was admitted with acute aspiration pneumonia. His last chest x-ray on 12 17 shows no signs of any residual pneumonia. He is not currently on oxygen. He is not currently on any antibiotics. Review of Systems Unobtainable due to mental condition COUNTS INCLUDE 234 BEDS AT THE [facility] All Active Problems Palliative care patient (Acute) Aspiration pneumonia (Acute) Oropharyngeal dysphagia (Acute) Advanced care planning/counseling discussion (Acute) Mass of thyroid gland (Acute) Discharge planning issues (Acute) DVT prophylaxis (Acute) Hypernatremia (Acute) Folate deficiency (Acute) B12 deficiency (Acute) [place] (acute kidney injury) (Acute) Sacral decubitus ulcer (Acute) Indwelling Wilkerson catheter present (Acute) Communication deficit (Acute) Unable to walk (Acute) Dysphagia (Acute) 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) Schizoaffective disorder (Acute) Sepsis (Acute) UTI (urinary tract infection) (Acute) Pneumonia (Acute) Medical History Atrial fibrillation BPH (benign prostatic hyperplasia) Chronic kidney disease HTN (hypertension) Hx of hyperlipidemia Parkinsons disease Social History Smoking/Tobacco Use Status: Never Smoking risk assessment performed?: Yes Substance use type: does not use Exam Resp Effort & Inspection: normal respiratory effort Auscultation: clear to auscultation bilaterally Cardio Other: hx of A fib GI Inspection: normal to inspection Palpation: soft Other: Abdomen is soft and nontender. There are no surgical scars. BMI is 29. Mother denies any previous interventions/surgeries. Results Last Vital Signs Temp 36.2 C L 12/20/22 14:33 Pulse 42 L 12/20/22 14:33 Resp 16 12/20/22 14:33 BP 110/64 12/20/22 14:33 Pulse Ox 94 12/20/22 14:33 Labs 12/19/22 05:38 12/19/22 05:38 Labs: Laboratory Results - last 24 hr 12/19/22 05:38 Prealbumin 17 L
[2022-12-20] MEDS: Pantoprazole 40 MG VIAL IVP (18:03)
--- NOTE | 2022-12-20 20:38 | W.PALPGNOTE ---
Date of service: 12/20/22 Time of Service: 14:15 Assessment and Plan Assessment and plan (1) Palliative care patient: Status: Acute Assessment and plan: Overall, patient much more alert and content looking today. Suspect this is from combination of some better nutrition from having had NG tube feedings for the last week along with being able to get his PD medicines regularly. Patient and family await decision by hospitalist and surgeon over whether or not PEG tube will be placed. Supportive counseling today with family around uncertainty around PEG tube. Discussed their hopes and plans for the patient. Palliative care team will continue to follow patient and family. 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 Recent notes from [facility], PT, hospitalist, case management reviewed. Case discussed with hospitalist and case management. Patient's ability to swallow seems to vary from day-to-day. Hospitalist and nursing feels it may be related to timing of Parkinson's medications. They are now trying to time medication to an hour before meals. Patient had consult with neurology today. Dr. Solis felt that patient had Parkinsons symptoms from both idiopathic PD and drug-induced parkinsonism. She recommended going up on Sinemet dosing. She hoped that this would help with eating and other symptoms. Patient had modified barium swallow yesterday. Part of report: Moderate chronic oropharyngeal dysphagia, characterized by physiologic deficits as outlined below, and resulting in?aspiration of thin liquid residue only; significant vallecular aggregation noted during prolonged mastication > approx. 10-25% of initial masticated bolus remained within vallecular space, then significantly cleared with subsequent nectar thick/IDDSI 2 liquid wash + cue for subsequent swallow.Suspect dysphagia presentation due to chronic parkinsonism symptoms, systemic weakness/incoordination; Recommendations were mixed, they thought that patient could receive oral foods and consistency with specified. Patient needed cueing and standby assistance while receiving oral foods. They also mentioned that enteral feedings via PEG tube might also be an option. Family seemed bit upset that there still was some mixed messages over whether it was okay for patient to be fed by mouth or whether he needed a PEG tube. I discussed this with the brother. Explained it was not clear-cut. We again reviewed the risks and benefits of PEG tube versus oral feedings. Brother does seem to recall continued risk of aspiration with either method. Patient and family are still feel comfortable with having a PEG tube placed. They would then welcome the option of him being able to take food by mouth for comfort and pleasure. However, they will await final recommendations of hospitalist and surgical services. Exam Narrative Exam Narrative: Patient appears much more bright and alert today, sitting up in bed looking around. Glasses on. Happily uses point board for yes and no. He is given a pen and writes may be on the handmade point board. His color is good. Mucous membranes seems slightly moister today and additionally mucous membranes look clear of debris. Recent albumin down to 2.9. Objective Last Vital Signs Temp 36.2 C L 12/20/22 14:33 Pulse 42 L 12/20/22 14:33 Resp 16 12/20/22 14:33 BP 110/64 12/20/22 14:33 Pulse Ox 94 12/20/22 14:33 Laboratory Results - last 24 hr 12/19/22 05:38 Prealbumin 17 L
[2022-12-20 23:22] VITALS: BP 115/65; PULSE 56; RESP 16; TEMP 36.7; O2SAT 96
[2022-12-21] VITALS (8 sets, daily range): BP systolic 113–128; BP diastolic 65–82; PULSE 45–78; RESP 14–17; TEMP 36.3–36.9; O2SAT 94–98; BMI 30.2
[2022-12-21] MEDS: Normal Saline Flush 10 ML SYR IVP (02:50)
[2022-12-21] MEDS: dilTIAZem 30 MG TAB PO (02:50)
[2022-12-21] MEDS: Heparin 5,000 UNITS/ML VIAL 5000 UNITS SC ×3 (04:50→20:22)
[2022-12-21 09:13] LABS: Homocysteine 17.8 umol/L (5.0-13.9)
--- NOTE | 2022-12-21 09:16 | PT.INTREAT ---
Date of service: 12/21/22 Time of Service: 08:50 PT Notes Visit Reasons: Aspiration Pneumonia, Acute Hypoxic Respiratory Fa Inpatient Physical Therapy Treatment Note [facility] Date: 12/21/2022 PRECAUTIONS: Activity as tolerated, STEDY lift only SUBJECTIVE: Cesario is pleasant and indicates that he is agreeable to participating in PT. Patient is very limited in verbal communications, at this time, he is only able to verbally communicate with yes and no, as well as physical gestures, such as pointing. OBJECTIVE: Patient is observed to be fatigued today. His NG tube has been removed. PAIN: No c/o pain BED MOBILITY/TRANSFERS Sit-stand: CGA x2 to standing scale Stand-sit: CGA x2 from standing scale GAIT: Not assessed THEREX: Patient was instructed in a resisted global strengthening program, completed in a seated position, to include: Hip abduction/adduction with yellow Tband x10 LAQ with yellow Tband x10 Modified abdominal crunches with 3# and Min A x10 Rows with yellow Tband x10 Bicep curls with 3# x10 Punch ups with 3# x10 Seated marches with yellow Tband x10 ASSESSMENT: Patient appeared limited by fatigue today. He was able to tolerate sit<>stand to standing scale with only CGA x2. PLAN: Continue with transfer training and global strengthening for improved mobility. TREATMENT CODE/TIME: 15 minutes; 46843 (08:50)
[2022-12-21] MEDS: Triamcinolone 0.1% CR 15 GM TUBE TP ×2 (09:34→20:21)
--- NOTE | 2022-12-21 09:36 | PDOC.CMPRO ---
- If Service Date Differs Date of service: 12/21/22 Time of Service: 09:36 Care Management Progress Note S/O: Cesario went down to the OR for a Peg tube today. Per Dr. Rey, Cesario may be ready to return to [facility] on Monday if tolerating his feeding regimen and medically ready. [facility] and will continue to follow. A: 77 year old male admitted to [facility] on 12/10/22 for Aspiration Pneumonia, Acute Hypoxic Respiratory Failure. P: Cesario was unable to tolerated PO nutrition and is getting a PEG tube. Per provider, he may be ready to return to [facility] on Monday if medically ready. He will transport via facility w/c van. CM will continue to follow.
--- NOTE | 2022-12-21 11:29 | ANES.PREOP_ITS ---
General Info Date of Service Date Performed: 12/21/22 Height: 5 ft 8 in Weight: 90 kg Body Mass Index (BMI): 30.2 Surgical Procedure: Operation Date: 12/21/22 15:10 Proposed Procedure Side Surgeon p Peg Tube Tristin Machado MD Meds Allergies and Home Medications Allergies Allergy/AdvReac Type Severity Reaction Status Date / Time No Known Allergies Allergy Verified 11/06/18 16:28 Home Medication Medication Instructions Recorded entacapone 200 mg tablet (Comtan) 200 mg PO TID 11/06/18 polyethylene glycol 3350 17 17 gm PO DAILY PRN 11/06/18 gram/dose oral powder (Miralax) acetaminophen 325 mg tablet 650 mg PO 6XD PRN Fever 11/25/22 amantadine HCl 100 mg tablet 100 mg PO TID 11/25/22 aspirin 81 mg chewable tablet 81 mg PO DAILY 11/25/22 benztropine 1 mg tablet 1 mg PO DAILY 11/25/22 bisacodyl 10 mg rectal suppository 10 mg DE DAILY PRN IF NO RESULT 11/25/22 (Dulcolax (bisacodyl)) FROM mom OR MIRALAX carbidopa 25 mg-levodopa 100 mg 2 tab PO QID 11/25/22 tablet diltiazem HCl 120 mg 120 mg PO DAILY 11/25/22 capsule,extended release 12 hr magnesium hydroxide 400 mg/5 mL 30 ml PO QHS PRN 11/25/22 oral suspension (Milk of Magnesia) sodium phosphates 19 gram-7 118 ml DE ONCE PRN 11/25/22 gram/118 mL enema (Fleet Enema) triamcinolone acetonide 0.1 % 1 applic topical BID 11/25/22 topical cream cyanocobalamin (vitamin B-12) 500 1,000 mcg PO DAILY #0 tabs 11/28/22 mcg tablet (Vitamin B-12) folic acid 1 mg tablet 1 mg PO DAILY #0 tabs 11/28/22 multivitamin with minerals-ferrous 1 tab PO DAILY@1000 #0 tabs 11/28/22 sulfate 4.5 mg iron tablet (One Daily Multivitamins with Minerals) zinc sulfate 50 mg zinc (220 mg) 220 mg PO DAILY #12 caps 11/28/22 capsule (Zinc-220) ascorbic acid (vitamin C) 500 mg 500 mg PO DAILY 12/10/22 tablet (Vitamin C) magnesium oxide 420 mg tablet 420 mg PO DAILY 12/10/22 Current Visit Medications: Current Medications Generic Name Dose Route Start Last Admin Trade Name Freq PRN Reason Stop Dose Admin Acetaminophen 650 mg 12/19/22 20:00 Acetaminophen Solution 650 Mg/20.3 Ml Cup PO Q6H PRN PRN Albuterol Sulfate 2.5 mg 12/10/22 13:06 Albuterol 2.5 Mg/3 Ml Inh Soln Vial UPD Q2H PRN PRN Albuterol/Ipratropium 3 ml 12/17/22 16:28 Albuterol/Ipratropium 3 Ml Upd Vial UPD Q6H PRN PRN dyspnea Amantadine HCl 100 mg 12/19/22 20:00 12/21/22 09:15 Amantadine 100 Mg Cap PO Not Given TID TIFFANI Ascorbic Acid 500 mg 12/20/22 08:30 12/21/22 09:15 Ascorbic Acid 500 Mg Tab PO Not Given DAILY TIFFANI Benztropine Mesylate 1 mg 12/20/22 08:30 12/21/22 09:15 Benztropine 1 Mg Tab PO Not Given DAILY TIFFANI Bisacodyl 10 mg 12/10/22 13:10 Bisacodyl 10 Mg Supp DE DAILY PRN PRN IF NO RESULT FROM mom OR MIRALAX Carbidopa/Levodopa 1 tab 12/20/22 20:00 12/21/22 10:52 Carbidopa 25/Levodopa 250 Tab PO Not Given QID@0700,1100,1600,2000 TIFFANI Clotrimazole 40 gm/ Zinc Oxide 0 gm 12/15/22 20:00 12/21/22 09:34 40 gm/ Vitamin A/Vitamin D 40 TP 1 applicatio gm BID [facility] Administration Cyanocobalamin 1,000 mcg 12/20/22 08:30 12/21/22 09:15 Cyanocobalamin 500 Mcg Tab PO Not Given DAILY TIFFANI Diltiazem HCl 30 mg 12/19/22 20:00 12/21/22 09:15 Diltiazem 30 Mg Tab PO Not Given Q6H TIFFANI Dimethicone/Zinc Oxide 0 gm 12/10/22 13:01 Boris Protect Cream 142 Gm Tube TP PRN PRN Entacapone 200 mg 12/20/22 20:00 12/21/22 10:53 Entacapone 200 Mg Tab PO Not Given QID@0700,1100,1600,2000 TIFFANI Folic Acid 1 mg 12/19/22 20:00 12/21/22 09:16 Folic Acid 1 Mg Tab PO Not Given BID TIFFANI Heparin Sodium (Porcine) 5,000 units 12/17/22 20:00 12/21/22 04:50 Heparin 5,000 Units/Ml Vial SC 5,000 units Q8H TIFFANI Administration Sodium Chloride 500 mls @ 0 mls/hr 12/13/22 03:33 12/13/22 05:20 Saline 500ml Bag IV 0 mls/hr PRN PRN Infusion As Directed Cefazolin Sodium 2,000 mg/ 100 mls @ 200 mls/hr 12/22/22 07:04 Sodium Chloride IVPB 12/22/22 07:33 PREOP ONE IV Miscellaneous Supplies 1 each 12/10/22 10:00 Iv Access IV DIRECTED [facility] Lidocaine HCl 6 ml 12/17/22 10:30 12/17/22 10:45 Lidocaine 2% Jelly 6 Ml Syr TP 6 ml DIRECTED [facility] Administration Multi-Ingredient Supplement 2 ounce 12/20/22 08:30 12/21/22 09:16 Protein Nutritional Supplement 16 Gm 1 Ounce Packet PO Not Given DAILY [facility] Multivitamins/Iron 1 ml 12/20/22 08:30 12/21/22 09:16 Multivitamin W/Iron Drops 50 Ml Btl PO Not Given DAILY [facility] Pantoprazole Sodium 40 mg 12/10/22 18:00 12/20/22 18:03 Pantoprazole 40 Mg Vial IVP 40 mg Q24H TIFFANI Administration Scopolamine HBr 1 mg 12/17/22 14:00 12/20/22 14:19 Scopolamine 1 Mg/3 Days Patch TD 1 mg Q72H TIFFANI Administration Sodium Chloride 0 ml 12/10/22 09:59 12/21/22 02:50 Normal Saline Flush 10 Ml Syr IVP 20 ml PRN PRN Administration Thiamine HCl 100 mg 12/20/22 08:30 12/21/22 09:16 Thiamine 100 Mg Tab PO Not Given DAILY TIFFANI Triamcinolone Acetonide 0 gm 12/10/22 20:00 12/21/22 09:34 Triamcinolone 0.1% Cr 15 Gm Tube TP 1 applic BID TIFFANI Administration PFSH Active Problems Active Problems: Problem Status Onset Code Palliative care patient Z51.5 Aspiration pneumonia J69.0 Oropharyngeal dysphagia R13.12 Advanced care planning/counseling discussion Z71.89 Mass of thyroid gland E07.9 Discharge planning issues Z02.9 DVT prophylaxis Z29.9 Acute respiratory failure with hypoxia J96.01 Pneumonia J18.9 Hypernatremia E87.0 Folate deficiency E53.8 B12 deficiency E53.8 [place] (acute kidney injury) N17.9 Sacral decubitus ulcer L89.159 Indwelling Wilk[place] catheter present Z97.8 Communication deficit F80.9 Unable to walk R26.2 Dysphagia R13.10 Parkinsonism due to drugs G21.19 Schizoaffective disorder F25.9 Sepsis A41.9 UTI (urinary tract infection) N39.0 Pneumonia J18.9 Medical History Medical History Atrial fibrillation BPH (benign prostatic hyperplasia) Chronic kidney disease HTN (hypertension) Hx of hyperlipidemia Parkinsons disease Tobacco Smoking/Tobacco Use Status: Never Substance Use Substance use type: does not use Vital Signs and Lab Results Vital Signs Most Recent Vital Signs in EMR: Most Recent Vital Signs Temp Pulse Resp BP Pulse Ox 36.4 C L 78 16 119/73 94 12/21/22 07:07 12/21/22 07:07 12/21/22 07:07 12/21/22 07:07 12/21/22 07:07 Point of Care Results Point of Care Results: Finger Stick Blood Glucose 113 12/18/22 10:24 Lab Results 12/19/22 05:38 12/19/22 05:38 Blood Type / Crossmatch: No Data to Display Complete Blood Count: White Blood Count 5.82 10^3/uL (4.4-10.8) 12/19/22 05:38 Red Blood Count 3.79 10^6/uL (4.36-5.78) L 12/19/22 05:38 Hemoglobin 12.1 g/dL (13.5-17.5) L 12/19/22 05:38 Hematocrit 36.4 % (40.0-50.0) L 12/19/22 05:38 Platelet Count 167 10^3/uL (130-400) 12/19/22 05:38 Venous Blood Lactate 1.2 mmol/L (0.6-1.4) 12/10/22 13:43 Complete Metabolic Panel: Sodium 140 mmol/L (136-145) 12/19/22 05:38 Potassium 3.9 mmol/L (3.5-5.1) 12/19/22 05:38 Chloride 105 mmol/L (98-107) 12/19/22 05:38 Carbon Dioxide 27.0 mmol/L (21.0-32.0) 12/19/22 05:38 BUN 12 mg/dL (7-18) 12/19/22 05:38 Creatinine 0.7 mg/dL (0.70-1.30) 12/19/22 05:38 Est GFR (CKD-EPI 2020) 96.09 (mL/min/1.73m2) 12/19/22 05:38 Magnesium 1.9 mg/dL (1.8-2.4) 12/15/22 05:25 Calcium 8.7 mg/dL (8.5-10.1) 12/19/22 05:38 Albumin 2.7 g/dL (3.4-5.0) L 12/19/22 05:38 Glucose 133 mg/dL (74-106) H 12/19/22 05:38 C-Reactive Protein 2.28 mg/dL (0.0-0.3) H 12/19/22 05:38 Liver Function Panel: Alanine Aminotransferase (ALT/SGPT) 14 U/L (16-63) L 12/19/22 0 5:38 Aspartate Amino Transf (AST/SGOT) 14 U/L (15-37) L 12/19/22 05: 38 Coagulation Panel: No Data to Display Cardiac Panel: Troponin I < 50 ng/L (<or=60) 12/10/22 Creatine Kinase 391 U/L (39-308) H 11/24/22 Arterial Blood Gas: No Data to Display Venous Blood Gas: No Data to Display Pancreas Panel: No Data to Display Thyroid Panel: No Data to Display Infectious Disease: Coronavirus (COVID-19)(PCR) Negative (Negative) 12/10/22 13:50 Coronavirus 2019 Source Nasal/Nares 12/10/22 13:50 Influenza Virus Type A (PCR) Negative (Negative) 11/24/22 03:3 8 Influenza Virus Type B (PCR) Negative (Negative) 11/24/22 03:3 8 Respiratory Syncytial Virus (PCR) Negative (Negative) 11/24/22 03:38 Blood Cultures: No Data to Display Toxicology Panel: No Data to Display Anesthesia Assessment and Plan Anesthesia History Personal History: No History of Anesthesia Complications Family History: No Family History of Anesthesia Complications Exercise Tolerance Exercise Tolerance: Metabolic Equivalents<4 Pertinent Negatives Pertinent Negatives: No Symptoms of GERD and No Major Cardiovascular Symptoms or Complaints Cardiac & Pulmonary Exam Cardiac Exam: Normal S1/S2 Heart Sounds Pulmonary Exam: Clear Bilateral Breath Sounds Implantable Cardiac Device Does patient have a Pacemaker or an ICD?: No Airway Exam Known Difficult Airway: No Mallampati Class: 1 Mouth Opening: Normal (> 3cm) Thyromental Distance: Greater than 3 cm Neck Range of Motion: Full ROM Neck Circumference: Normal Teeth Condition: Normal Dentition ASA Classification ASA Score: ASA 3 Emergency Case?: No NPO Status NPO Status: NPO Clears >2 hours, Solids >8 hours Anesthesia Plan Resuscitation Status: DNR Fully Suspended During Perioperative Period Anesthesia Technique: General Anesthesia Airway Planned: Natural Airway Monitors Used: Standard Monitors
[2022-12-21] MEDS: Lactated Ringers 1,000 ML 30 ML IV ×2 (13:15→18:38)
--- NOTE | 2022-12-21 15:28 | W.PM.PROGNOT ---
Date of Service Date of service: 12/21/22 Time of Service: 15:28 Assessment and Plan Assessment and plan (1) Oropharyngeal dysphagia: Status: Acute Assessment and plan: Patient was made NPO this morning and underwent gastrostomy tube placement this afternoon. Per Dr. Machado patient can have medications through the gastrostomy tube tonight and then tomorrow we can begin trial of tube feedings. Nutritional services requests the prior to transfer back to his SNF that we trial him on bolus tube feedings. Professional time spent interviewing and examining patient, discussion of goals of care with hospital team (care management, nursing and consulting professionals) was 15 minutes. (2) Pneumonia: Status: Resolved Assessment and plan: Patient completed a course of Zosyn for aspiration pneumonitis. He remains off of supplemental oxygen afebrile with normal WBC count and normal procalcitonin. 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 Claribel Solis has seen the patient and made recommendations and the timing of his entacapone as well as changes in the dosage of his Sinemet. (4) Atrial fibrillation: Assessment and plan: Heart tones sound to be regular. His A-fib seems to be paroxysmal. He remains on diltiazem 60 mg per NG every 6 hours. Patient's not anticoagulated other than daily aspirin 81 mg daily. (5) Mass of thyroid gland: Status: Acute Assessment and plan: Can follow-up with outpatient dedicated thyroid ultrasound and if indicated referral for biopsy. (6) Sacral decubitus ulcer: Status: Acute Assessment and plan: Stage III sacral decubitus currently being managed by wound care nurse. (7) DVT prophylaxis: Status: Acute Assessment and plan: sc heparin (8) Discharge planning issues: Status: Acute Assessment and plan: Once patient is trial of gastrostomy tube feedings is successful he can be transferred back to [facility]. Subjective Subjective Interval history since last seen: Patient was off the floor this afternoon having his PEG tube. Per my discussion w/ Dr. Tristin Machado, no PEG tubes were available and therefore he has to perform an open gastrostomy tube. Exam Narrative Exam Narrative: Patient is sleeping this evening but awakens easily. He voices no complaints. Abdomen soft with hypoactive bowel sounds with some mild tenderness around the gastrostomy tube site there is no drainage Objective Last Vital Signs Temp 36.3 C L 12/21/22 14:31 Pulse 45 L 12/21/22 14:31 Resp 16 12/21/22 14:31 BP 114/67 12/21/22 14:31 Pulse Ox 95 12/21/22 14:31 Laboratory Results - last 24 hr 12/19/22 05:38 Homocysteine 17.8 H Time Spent with Patient Time Spent with Patient: <25 minutes Time was spent: preparing to see the patient(eg.review tests), referring, communicating with other health dog daycare provider (Dr. Tristin Machado) and care coordination
[2022-12-21] MEDS: Bupivacaine 0.25% Pres-Free 30 ML VIAL (15:53)
--- NOTE | 2022-12-21 17:41 | W.ANESPOSTOP ---
Postoperative Evaluation Date, Time and Location Date Performed: 12/21/22 Time Performed: 16:50 Patient Location: PACU Vital Signs Most Recent Imported Vital Signs: Most Recent Vital Signs Temp Pulse Resp BP Pulse Ox 36.7 C 70 14 128/82 97 12/21/22 16:50 12/21/22 16:50 12/21/22 16:50 12/21/22 16:50 12/21/22 16:50 Pain Score Most Recent Pain Score: Most Recent Pain Score Pain Level 0 12/20/22 23:22 Assessment Mental Status: Awake (Alert & Oriented to Patient Baseline) Airway and Respiratory Function: Patent airway with normal (patient baseline) respiratory exam Cardiovascular Function: Hemodynamically Stable Hydration Status: Adequately Hydrated Nausea & Vomiting: No Nausea or Vomiting Pain: Pt. Denies Any Pain Peripheral Nerve Block: Patient did not receive a nerve block
[2022-12-21] MEDS: Pantoprazole 40 MG VIAL IVP (18:37)
[2022-12-21] MEDS: Folic Acid 1 MG TAB PO (20:21)
--- NOTE | 2022-12-21 22:41 | ROE_ITS ---
Date of service: 12/21/22 Time of Service: 16:30 Operative Note Operative Note DATE OF PROCEDURE: 12/21/22 PRE-OP DIAGNOSIS: Malnutrition POST-OP DIAGNOSIS: same PROCEDURE: Open gastrostomy tube SURGEON: Tristin Machado Refer to Anesthesia Record ESTIMATED BLOOD LOSS: 25 PATHOLOGY: none sent COMPLICATIONS: None Patient was transported to: PACU Patient's condition: stable Implants: Lane-Sainz low-profile 20 [place] gastrostomy tube Indications: Cesario is a 77-year-old man with severe Parkinson's disease, which is left him unable to meet his nutritional needs. Procedure Description: Initial plans were made for insertion of a percutaneous endoscopic gastrostomy tube. However, no PEG tubes were immediately available around the time of the operation. Therefore, I discussed the nature of an open gastrostomy tube with Cesario's brother Sesar, who is his DURABLE POWER OF NUCLEAR MEDICINE SPECIALIST. I explained that open gastrostomy tubes result in the same outcome as percutaneous endoscopic gastrostomy tube, and the major difference between the 2 regards the insertion technique used to establish the tube. Sesar provided informed consent, we adjusted the planned operation accordingly. After the initiation of anesthesia, I clipped the hair on the anterior abdominal wall then prepped and draped in the usual fashion. I established a generous field block in the midline, I made a small upper midline incision. I dissected down to the fascia which I incised sharply. I dissected down through the preperitoneal fat, and opened the peritoneum under direct vision. On opening the peritoneal layer, I created a small deserosalization to the mid transverse colon. This was imbricated with a single [id number] silk suture. Next, I turned my attention towards the stomach. With gentle retraction in the left upper quadrant, I was able to identify the stomach, and elevated into the o perative field with [place] clamps. I held the stomach up to the anterior abdominal wall to find a suitable location for the gastrostomy tube insertion site. Next, I incised the skin in the left upper quadrant a few centimeters below the costal margin. I passed a hemostat externally, and used this to deliver a [address] [place] [address]-sainz low-profile gastrostomy tube into the peritoneal cavity. The tube was selected based on the patient's body habitus, and appropriate positioning. I tested the balloon on the gastrostomy tube to ensure appropriate filling. Next, I used a 2-0 silk suture to create a pursestring type stitch in the wall of the stomach, slightly towards the greater curvature, but away from the gastroepiploic arcade. Then made a gastrostomy in the center of the suture, and delivered the gastrostomy tube into the lumen of the stomach. I gently inflated the balloon with 4 cc of saline. Gastrostomy tube appeared well-seated. I secured the pursestring suture. Then used four-point suture gastropexy to secure the stomach up to the anterior abdominal wall. I gently flush the G-tube using sterile saline solution. It flushed easily, but I was not able to reflux any bilious effluent. Therefore, using a standard endoscope I performed EGD to confirm appropriate positioning of the tube within the stomach lumen. Again, it looked well-seated, without any untoward pressure on the stomach up against the anterior abdominal wall. Next, I gently irrigated the incision. I then closed the fascia with running 2-0 PDS stitches. I irrigated the skin and subcutaneous soft tissues. I closed the skin with surgical stapler, and dressed the wound with Mepilex dressings.
[2022-12-22] MEDS: Lactated Ringers 1,000 ML 80 ML IV ×3 (00:31→20:37)
[2022-12-22] MEDS: Heparin 5,000 UNITS/ML VIAL 5000 UNITS SC ×3 (03:39→20:27)
[2022-12-22 08:01] VITALS: BP 111/72; PULSE 67; RESP 14; TEMP 36.6; O2SAT 96
[2022-12-22] MEDS: Cyanocobalamin 500 MCG TAB 1000 MCG PO (08:23)
[2022-12-22] MEDS: Benztropine 1 MG TAB PO (08:24)
[2022-12-22] MEDS: Folic Acid 1 MG TAB PO ×2 (08:24→20:25)
[2022-12-22] MEDS: Thiamine 100 MG TAB PO (08:24)
[2022-12-22] MEDS: dilTIAZem 30 MG TAB PO ×3 (08:24→20:26)
[2022-12-22] MEDS: Ascorbic Acid 500 MG TAB PO (08:24)
[2022-12-22] MEDS: Protein Nutritional Supplement 16 GM 1 OUNCE PACKET 2 OUNCE PO (08:25)
--- NOTE | 2022-12-22 08:40 | PDOC.CMPRO ---
- If Service Date Differs Date of service: 12/22/22 Time of Service: 08:40 Care Management Progress Note S/O: Cesario is lying in bed when CM met with him. He had a Peg tube placed yesterday to help support his nutritional needs. Per Hospitalist, the plan is for pt to start bolus feeding today and return to [facility] on Monday if tolerating his feeding regimen and medically ready. Cesario will discharge back to [facility] with a supply of the tube feeding supplement. [facility] and will continue to follow. A: 77 year old male admitted to [facility] on 12/10/22 for Aspiration Pneumonia, Acute Hypoxic Respiratory Failure. P: Cesario was unable to tolerated PO nutrition and is getting a PEG tube. Per provider, he may be ready to return to [facility] on Monday if medically ready. He will transport via facility w/c van. CM will continue to follow.
[2022-12-22] MEDS: IRON PO (09:55)
[2022-12-22] MEDS: MULTIVITAMIN PO (09:55)
[2022-12-22] MEDS: Triamcinolone 0.1% CR 15 GM TUBE TP ×2 (09:56→20:26)
[2022-12-22 10:03] LABS: Methylmalonic Acid 0.16 nmol/mL (<=0.40)
[2022-12-22 12:40] VITALS: BP 131/82; PULSE 69; RESP 18; TEMP 36.5; O2SAT 94
[2022-12-22] MEDS: Normal Saline Flush 10 ML SYR IVP ×2 (13:26→18:45)
[2022-12-22 13:44] LABS: Abs Immature Grans 0.02 10^3/uL (0.0-0.06); Absolute Basophil Count 0.04 10^3/uL (0.0-0.2); Absolute Eosinophil Count 0.11 10^3/uL (0.0-0.7); Absolute Lymphocyte Count 0.74 10^3/uL (1.2-3.4); Absolute Monocyte Count 0.56 10^3/uL (0.1-0.8); Absolute Neutrophil Count 3.25 10^3/uL (1.2-6.7); Basophils % 0.8; Eosinophils % 2.3; HCT 36.7 % (40.0-50.0); HGB 11.8 g/dL (13.5-17.5); Immature Grans % 0.4; Lymphocytes % 15.7; MCH 31.2 pg (27.0-33.0); MCHC 32.2 % (32.0-36.0); MCV 97 fL (80-95); MPV 10.4 fL (8.0-11.0); Monocytes % 11.9; Neutrophils % 68.9; Platelet Count 194 10^3/uL (130-400); RBC 3.78 10^6/uL (4.36-5.78); RDW-SD 46.1 fL; WBC 4.72 10^3/uL (4.4-10.8)
[2022-12-22 13:48] VITALS: BP 123/76; PULSE 67
[2022-12-22 13:53] LABS: Anion Gap 11.1 mmol/L (3-11); BUN 17 mg/dL (7-18); CO2 24.9 mmol/L (21.0-32.0); CREATININE 0.8 mg/dL (0.70-1.30); Calcium 9.1 mg/dL (8.5-10.1); Chloride 105 mmol/L (98-107); Estimated GFR 92.29 (mL/min/1.73m2); Glucose 98 mg/dL (74-106); Potassium 3.6 mmol/L (3.5-5.1); Sodium 141 mmol/L (136-145)
[2022-12-22 15:22] VITALS: BP 112/73; PULSE 67; RESP 18; TEMP 36.6; O2SAT 92
--- NOTE | 2022-12-22 15:31 | PT.INTREAT ---
Date of service: 12/22/22 Time of Service: 09:50 PT Notes Visit Reasons: Aspiration Pneumonia, Acute Hypoxic Respiratory Fa Inpatient Physical Therapy Treatment Note [facility] Date: 12/22/2022 PRECAUTIONS: Activity as tolerated, STEDY lift only SUBJECTIVE: Cesario is pleasant and indicates that he is agreeable to participating in PT. Patient is limited in verbal communications, only able to verbally communicate with yes and no, as well as physical gestures, such as pointing. OBJECTIVE: G tube placed yesterday. PAIN: No c/o pain BED MOBILITY/TRANSFERS Sit-stand: SBA with use of STEDY Stand-sit: SBA with use of STEDY GAIT: Not assessed THEREX: Patient was instructed in several exercises for strengthening, completed in a standing position in STEDY and in a seated position, to include: Functional sit<>stand x10 with cueing for improved posture LAQ with yellow Tband x15 Bicep curls with 3#x15 Shoulder IR/ER with 3# x15 Punch ups with 3# x10 ASSESSMENT: Patient continues to demonstrate improved strength and ability to complete transfers with STEDY lift support. Continued inability to achieve full standing position, demonstrating inability to fully extend knees and hips. He requires SBA for [id number] with STEDY at this time. PLAN: Continue with transfer training and global strengthening for improved mobility. TREATMENT CODE/TIME: 25 minutes; 58115, [id number] (09:50)
--- NOTE | 2022-12-22 17:20 | PGE_ITS ---
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 He has had progression particularly in the last one year in regards to his dysphagia and is now wheelchair bound. \ -continue Sinemet 25/250mg QID at 0700, 1100, 1600, and 2000. -continue entacapone 200mg QID at 0700, 1100, 1600, and 2000 (should be given with Sinemet) -continue amantadine 100mg TID for now.? Consider stopping HS dose if concerns for insomnia/hallucinations.? This medication is renally dosed. -continue benztropine, however if concern for dry mouth, would consider weaning/stopping.? Also this may be contributing to memory loss... I have requested his more recent neurology records from [facility].? He should follow-up in neurology clinic in the next 4-6 weeks. Subjective Subjective Interval history since last seen: PEG tube placed yesterday. So today is first full day of new Sinemet dosing. Brother Dougie at bedside and not noticing any difference on the increased dose. Notes Cesario was more tired today - related to yesterday's procedure? However, Cesario was more interactive for me today answering a few yes/no questions. Exam Narrative Exam Narrative: Physical Exam: Constitutional: Patient of apparent stated age, no acute distress, moderate hypomimia Neuro: MS/Language/Speech: Alert, non-verbal; answered a few yes/no questions today; able to comply with exam Motor:: bulk intact. Bilateral cogwheel rigidity, severe R>L. Fine motor m ovements reduced bilaterally. Moderate-severe diffuse bradykinesia, worse in the RUE. No pronator drift. Strength 4/5 bilateral UE; 3+/5 bilateral LE. No resting tremor seen today. Objective Last Vital Signs Temp 97.9 F 12/22/22 15:22 Pulse 67 12/22/22 15:22 Resp 18 12/22/22 15:22 BP 112/73 12/22/22 15:22 Pulse Ox 92 12/22/22 15:22 Laboratory Results - last 24 hr 12/19/22 12/22/22 12/22/22 05:38 13:30 13:30 WBC 4.72 RBC 3.78 L Hgb 11.8 L Hct 36.7 L MCV 97 H MCH 31.2 MCHC 32.2 RDW 13.0 Plt Count 194 MPV 10.4 Immature Gran % 0.4 Neutrophils % 68.9 Lymphocytes % 15.7 Monocytes % 11.9 Eosinophils % 2.3 Basophils % 0.8 Nucleated RBC % 0.0 Absolute Neutrophils 3.25 Absolute Lymphocytes 0.74 L Absolute Monocytes 0.56 Absolute Eosinophils 0.11 Absolute Basophils 0.04 Sodium 141 Potassium 3.6 Chloride 105 Carbon Dioxide 24.9 Anion Gap 11.1 H BUN 17 Creatinine 0.8 Est GFR (CKD-EPI 2020) 92.29 Glucose 98 Calcium 9.1 Methylmalonic Acid 0.16 Time Spent with Patient Time Spent with Patient: <25 minutes Time was spent: preparing to see the patient(eg.review tests), referring, communicating with other health critical care transport nurse and counseling the patient
--- NOTE | 2022-12-22 17:33 | PGE_ITS ---
Date of Service Date of service: 12/22/22 Time of Service: 17:33 Assessment and Plan Assessment and plan (1) Oropharyngeal dysphagia: Status: Acute Assessment and plan: PEG now in place. Initiated Osmolite 1.2. Five cans/day bolus feeds. Nutritional services requests the prior to transfer back to his SNF that we trial him on bolus tube feedings. He may have oral intake for pleasure, but at the very slow rate at which he can safely eat, he could not maintain his nutritional status. (2) Pneumonia: Status: Resolved Assessment and plan: Patient completed a course of Zosyn for aspiration pneumonitis. He remains off of supplemental oxygen afebrile with normal WBC count and normal procalcitonin. 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 Claribel Solis has seen the patient and made recommendations and the timing of his entacapone as well as changes in the dosage of his Sinemet. (4) Atrial fibrillation: Assessment and plan: Heart tones sound to be regular. His A-fib seems to be paroxysmal. He remains on diltiazem 60 mg per NG every 6 hours. Patient's not anticoagulated other than daily aspirin 81 mg daily. Change to long-acting diltiazem in the AM. (5) Mass of thyroid gland: Status: Acute Assessment and plan: Can follow-up with outpatient dedicated thyroid ultrasound and if indicated referral for biopsy. (6) Sacral decubitus ulcer: Status: Acute Assessment and plan: Stage III sacral decubitus currently being managed by wound care nurse. (7) DVT prophylaxis: Status: Acute Assessment and plan: sc heparin (8) Discharge planning issues: Status: Acute Assessment and plan: Once patient is trial of gastrostomy tube feedings is successful he can be transferred back to [facility]. Subjective Subjective Patient reports: afebrile; denies diarrhea, vomiting or shortness of breath Exam Narrative Exam Narrative: Gen: Awake. Appears comfortable. Lungs: Clear anteriorly. Nonlabored breathing. CV: RRR Abdomen soft with hypoactive bowel sounds. NT. PEG in place. Exts: No edema, calf tenderness. Objective Last Vital Signs Temp 36.6 C 12/22/22 15:22 Pulse 67 12/22/22 15:22 Resp 18 03/09/23 15:22 BP 112/73 12/22/22 15:22 Pulse Ox 92 12/22/22 15:22 Laboratory Results - last 24 hr 12/19/22 12/22/22 12/22/22 05:38 13:30 13:30 WBC 4.72 RBC 3.78 L Hgb 11.8 L Hct 36.7 L MCV 97 H MCH 31.2 MCHC 32.2 RDW 13.0 Plt Count 194 MPV 10.4 Immature Gran % 0.4 Neutrophils % 68.9 Lymphocytes % 15.7 Monocytes % 11.9 Eosinophils % 2.3 Basophils % 0.8 Nucleated RBC % 0.0 Absolute Neutrophils 3.25 Absolute Lymphocytes 0.74 L Absolute Monocytes 0.56 Absolute Eosinophils 0.11 Absolute Basophils 0.04 Sodium 141 Potassium 3.6 Chloride 105 Carbon Dioxide 24.9 Anion Gap 11.1 H BUN 17 Creatinine 0.8 Est GFR (CKD-EPI 2020) 92.29 Glucose 98 Calcium 9.1 Methylmalonic Acid 0.16 Time Spent with Patient Time Spent with Patient: 25-34 minutes Time was spent: preparing to see the patient(eg.review tests), ordering medications,tests, procedures and indepentently interpreting results
[2022-12-22] MEDS: Pantoprazole 40 MG VIAL IVP (18:45)
[2022-12-22] MEDS: dilTIAZem 60 MG TAB PO (20:25)
--- NOTE | 2022-12-22 20:58 | W.PM.PROGNOT ---
Date of Service Date of service: 12/22/22 Time of Service: 16:45 Assessment and Plan Assessment and plan (1) Oropharyngeal dysphagia: Status: Acute Assessment and plan: He has been tolerating medications through the gastrostomy tube overnight, and the exam today is reassuring. I think it is reasonable to start some enteral nutrition through the tube. Subjective Subjective Interval history since last seen: Cesario has been up and out of bed to the chair. He was doing some leg exercises. He looks comfortable to me, and he is pleasant when I ask him questions. Exam GI Other: His abdomen is soft and nondistended. He has a little bit of pain at the incision site. The gastrostomy tube looks okay. It is clean, and there is no erythema. It is functioning just fine. Objective Last Vital Signs Temp 97.9 F 12/22/22 15:22 Pulse 67 12/22/22 15:22 Resp 18 12/22/22 15:22 BP 112/73 12/22/22 15:22 Pulse Ox 92 12/22/22 15:22 Laboratory Results - last 24 hr 12/19/22 12/22/22 12/22/22 05:38 13:30 13:30 WBC 4.72 RBC 3.78 L Hgb 11.8 L Hct 36.7 L MCV 97 H MCH 31.2 MCHC 32.2 RDW 13.0 Plt Count 194 MPV 10.4 Immature Gran % 0.4 Neutrophils % 68.9 Lymphocytes % 15.7 Monocytes % 11.9 Eosinophils % 2.3 Basophils % 0.8 Nucleated RBC % 0.0 Absolute Neutrophils 3.25 Absolute Lymphocytes 0.74 L Absolute Monocytes 0.56 Absolute Eosinophils 0.11 Absolute Basophils 0.04 Sodium 141 Potassium 3.6 Chloride 105 Carbon Dioxide 24.9 Anion Gap 11.1 H BUN 17 Creatinine 0.8 Est GFR (CKD-EPI 2020) 92.29 Glucose 98 Calcium 9.1 Methylmalonic Acid 0.16 Time Spent with Patient Time Spent with Patient: <25 minutes Time was spent: preparing to see the patient(eg.review tests) and counseling the patient
[2022-12-22 23:54] VITALS: BP 111/60; PULSE 60; RESP 16; TEMP 37.2; O2SAT 92
[2022-12-23] MEDS: Heparin 5,000 UNITS/ML VIAL 5000 UNITS SC ×2 (04:33→12:11)
[2022-12-23 07:24] VITALS: BP 126/78; PULSE 86; RESP 18; TEMP 37; O2SAT 95
[2022-12-23] MEDS: Folic Acid 1 MG TAB PO (07:34)
[2022-12-23] MEDS: Cyanocobalamin 500 MCG TAB 1000 MCG PO (07:34)
[2022-12-23] MEDS: Thiamine 100 MG TAB PO (07:34)
[2022-12-23] MEDS: Benztropine 1 MG TAB PO (07:34)
[2022-12-23] MEDS: Ascorbic Acid 500 MG TAB PO (07:34)
[2022-12-23] MEDS: dilTIAZem 60 MG TAB PO ×2 (07:34→13:49)
[2022-12-23] MEDS: Triamcinolone 0.1% CR 15 GM TUBE TP (07:35)
[2022-12-23] MEDS: Protein Nutritional Supplement 16 GM 1 OUNCE PACKET 2 OUNCE PO (07:35)
[2022-12-23] MEDS: MULTIVITAMIN PO (08:32)
[2022-12-23] MEDS: IRON PO (08:32)
[2022-12-23 09:47] LABS: Source Nasal/Nares
[2022-12-23] MEDS: Lactated Ringers 1,000 ML 80 ML IV (10:01)
[2022-12-23 10:19] LABS: COVID-19 PCR Negative (Negative)
--- NOTE | 2022-12-23 12:02 | SPP_ITS ---
Date of service: 12/23/22 Time of Service: 11:34 Subjective Pt elevated to 30 degrees, lying in bed. PEG placed yesterday. Mouth appears pink and moist, mild dryness of tongue blade. SECURITY DOOR INSTALLER was unable to locate toothbrush in room- provided pt with new one. SECURITY DOOR INSTALLER also noted diet order ticket was marked moderately thick instead of mildly thick as recommended by recent MBSS. Pt pointed to moisten lips on communication board. BENZENE WORKER verbalized pt tolerated breakfast well, ate ~50%. Objective/Assessment/Plan Objective Treatment Techniques & Outcomes: PO trials administered following thorough oral care with soft-bristled toothbrush and suction swab kit. Pt able to participate in brushing his teeth and holding suctioning equipment, which is improved from last visit. Pt was administered PO trials of ice chips, nectar thick juice by cup, and pureed solids. No overt s/sx aspiration/penetration present across consistencies. Pt with mild L buccal residue of pureed texture, cleared with nectar thick liquid wash x2 and cued dry swallow. Pharyngeal swallow initiated timely in 8/10 opportunities. Patient/Caregiver/Staff Education: BENZENE WORKER and dietary staff delivering lunch trays were made aware of incorrect diet order for liquids. BENZENE WORKER also made aware of need to use toothbrush during oral care. Assessment Pt continues with moderate oropharyngeal dysphagia but with continued moderate to high risk of swallowing-related pulmonary complications. Improving alertness and participation in therapeutic activity noted today i.e., ability to assist with oral care/cleaning and self-feeding. Pt remains impulsive when self-feeding and continues to require cues to eat slowly and take smaller bites. Plan Plan: SECURITY DOOR INSTALLER will continue to follow to ensure adequate oral care, carryover of diet level recommendations, and compensatory swallowing strategy use while pt remains at the acute care level. Recommendations Diet: 4-Pureed/Extremely Thick (pleasure feeds) Liquids: 2-Mildly Thick/[place] Thick Other: PEG for primary source of nutrition Strategies/Adaptions: Use supports to ensure upright/midline posture, Small bi norma, Small sips, No straws, Ensure complete mastication & swallow before next bite, Check oral cavity frequently, Feed in low-stimulation environment, Upright for at least 30 minutes after meal and Oral care at least 2x/day Supervision: Direct supervision via of [facility] staff, assist w/feeding Recommendations: Continue free water/ice chips outside of meals following thorough oral care with toothbrush and suctioning equipment. Additional Notes: Coding- Oral function therapy [id number] Total Time Spent: 25 minutes Coding Diagnoses
--- NOTE | 2022-12-23 12:40 | DSE_ITS ---
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 (2) Dysphagia: Status: Acute Asessment and Plan: Resulting in aspiraqtion pneumonia. He now has a PEG tube and enteral feeds will be his primary source of nutrition though he may also have a Pureed/extremely thick diet with mildly thick/nectar thick liquids. (3) Communication deficit: Status: Acute Asessment and Plan: Long-standing. (4) Unable to walk: Status: Acute Asessment and Plan: Baseline (5) Aspiration pneumonia: Status: Acute Asessment and Plan: Resolved; antibiotic course completed. (6) Sacral decubitus ulcer: Status: Acute Asessment and Plan: Present on admission. Continue wound care and off-loading. Discharge Plan Disposition Patient Disposition: Care Home Facility(SNF) Condition: Improving Discharge Details Reason For Visit: Aspiration Pneumonia, Acute Hypoxic Respiratory Fa Admit Date/Time: 12/10/22 13:04 Admit Provider: Danita Marquez Attending Provider: Danita Marquez Primary Care Provider: Henrik Mukherjee Hospital Course Hospital Course: Mr Moralez is a 77 year old male with PMHx of Parkinsonism with oropharyngeal dysphagia on pureed diet with nectar thickened fluids, as well as h/o schizoaffective disorder, urinary retention and sacral decubitous ulcer s/p ribeiro catheter, who presented to [facility] ED from [facility] with complaints of a new cough since yesterday, fever of 101.5, possible aspiration event this morning, and having difficulty tolerating a pureed diet with nectar thickened fluids. The patient was evaluated by speech therapy on last admission who had made these recommendations as well as a recommendation for an MBSS as outpatient. In the ED, the patient is found to require 4L of O2 by face mask to saturate in the 90s. His CXR reveals bibasilar pneumonia. He was initiated on empiric vancomycin and zosyn. Hospitalist admission was requested. On arrival to the medical surgical floor, the patient was on 2L of O2 by facemask. He is not able to clear his own secretions orally; he has been gargling on them and is aspirating on even pudding. He was made NPO. Consultants: Speech, Palliative, General Surgery, Neurology, Nutrition. See Diagnosis Home Meds and New Rx's Prescriptions: New thiamine mononitrate (vit B1) [Vitamin B-1 (mononitrate)] 100 mg Tablet 100 mg PO DAILY Qty: 0 0RF diltiazem HCl [Cardizem] 60 mg Tablet 60 mg PO TID Qty: 0 0RF Continued polyethylene glycol 3350 [Miralax] 17 gram/dose powder 17 gm PO DAILY PRN entacapone [Comtan] 200 mg tablet 200 mg PO TID triamcinolone acetonide 0.1 % Cream 1 applic TOPICAL BID Rx Instructions: APPLY TWICE A DAY TO CALVES FOR DRYNESS magnesium hydroxide [Milk of Magnesia] 400 mg/5 mL Suspension 30 ml PO QHS PRN Fleet Enema 19-7 gram/118 mL Enema 118 ml MD ONCE PRN acetaminophen 325 mg Tablet 650 mg PO 6XD PRN (Reason: Fever) amantadine HCl 100 mg tablet 100 mg PO TID aspirin 81 mg Tablet,Chewable 81 mg PO DAILY benztropine 1 mg tablet 1 mg PO DAILY carbidopa-levodopa 25-100 mg tablet 2 tab PO QID bisacodyl [Dulcolax (bisacodyl)] 10 mg Suppository 10 mg MD DAILY PRN (Reason: IF NO RESULT FROM mom OR MIRALAX) cyanocobalamin (vitamin B-12) [Vitamin B-12] 500 mcg Tablet 1,000 mcg PO DAILY Qty: 0 0RF folic acid 1 mg Tablet 1 mg PO DAILY Qty: 0 0RF One Daily Multi-Vit w-Mineral 4.5 mg iron Tablet 1 tab PO DAILY@1000 Qty: 0 0RF zinc sulfate [Zinc-220] 50 mg zinc (220 mg) Capsule 220 mg PO DAILY Qty: 12 0RF Rx Instructions: for 12 days starting 12/05/22 TB. magnesium oxide 420 mg Tablet 420 mg PO DAILY ascorbic acid (vitamin C) [Vitamin C] 500 mg tablet 500 mg PO DAILY Discontinued diltiazem HCl 120 mg Capsule,Extended Release 12 Hr 120 mg PO DAILY Discharge Instructions Additional Instructions: Tube feeding instructions. Osmolite 1.2; 1 can per each feed. Feeds scheduled at 0800, 1200, 1500, 1800. He may also have a Pureed/extremely thick diet with mildly thick/nectar thick liquids. PEG will be his primary source of nutrition given the significant length of time it takes him to eat. Stand Alone Forms: Nursing Discharge Form Activity:: Activity as Tolerated Equipment/Supplies:: No Equipment Needed Diet:: As Tolerated DS: Summary Time Spent with Patient providing and/or coordinating discharge services: Greater than 30 minutes Status at Discharge Functional status at discharge: bed bound Overall status at discharge: patient is back to baseline Mental Status: other (Mute, but does some communication through gestures. ) Speech and Movement: mute Mood: congruent mood and other (Mute, but does some communication through gestures. ) Affect: normal affect Exam Narrative Exam Narrative: Gen: Awake. Appears comfortable. Lungs: Clear anteriorly. Nonlabored breathing. CV: RRR Abdomen soft with hypoactive bowel sounds. mildly tender at surgical incision. PEG in place. Exts: No edema, calf tenderness. Psych Mental Status: other (Mute, but does some communication through gestures. ) Speech and Movement: mute Mood: congruent mood and other (Mute, but does some communication through gestures. ) Affect: normal affect DS: Data Vitals/I&O Vitals and I&O: Vital Signs Temperature 37.0 C 12/23/22 07:24 Temperature Source Tympanic 12/23/22 07:24 Pulse 86 12/23/22 07:24 Pulse Rhythm Regular 12/23/22 07:15 Pulse 93 H 12/10/22 14:15 Respiratory Rate 18 12/23/22 07:24 Respiratory Effort Normal, Non-Labored 12/23/22 07:15 Respiratory Depth Normal 12/23/22 07:15 Respiratory Pattern Normal 12/23/22 07:15 Blood Pressure 126/78 12/23/22 07:24 Blood Pressure Mean 84 12/10/22 14:15 Blood Pressure Position Sitting 12/10/22 09:50 Pulse Oximetry 95 12/23/22 07:24 Respiratory End-tidal CO2 12/21/22 16:45 Oxygen Delivery Method Room Air 12/23/22 07:24 Oxygen Flow Rate 0 12/23/22 07:24 Pain Level 0 12/23/22 07:24 Comment pT receiving neb treatment at this time 12/12/22 15:55 Intake & Output 03/09/23 03/10/23 03/10/23 23:59 11:59 23:59 Intake Total 853.333 / 5557.607 3190 / 1120 Output Total 1650 / 1650 1750 / 1750 Balance -796.667 / 134.500 -630 / -630 Intake: IV 853.333 / 9352.026 1568 / 1000 Oral 120 / 120 Output: Urine 1650 / 1650 1750 / 1750 Other: Urine Color [place] Urine Appearance Clear Clear Urine Odor None None Comment urine orange in color r/t medication patent and draining at this time Voiding Methods Indwelling Catheter Indwelling Catheter Data Completed and Pending Labs on day of discharge: Labs from last 24 hours 12/23/22 12/22/22 12/22/22 09:36 13:30 13:30 WBC 4.72 RBC 3.78 L Hgb 11.8 L Hct 36.7 L MCV 97 H MCH 31.2 MCHC 32.2 RDW 13.0 Plt Count 194 MPV 10.4 Immature Gran % 0.4 Neutrophils % 68.9 Lymphocytes % 15.7 Monocytes % 11.9 Eosinophils % 2.3 Basophils % 0.8 Nucleated RBC % 0.0 Absolute Neutrophils 3.25 Absolute Lymphocytes 0.74 L Absolute Monocytes 0.56 Absolute Eosinophils 0.11 Absolute Basophils 0.04 Sodium 141 Potassium 3.6 Chloride 105 Carbon Dioxide 24.9 Anion Gap 11.1 H BUN 17 Creatinine 0.8 Est GFR (CKD-EPI 2020) 92.29 Glucose 98 Calcium 9.1 COVID-19 Source Nasal/Nares SARS-CoV-2 (PCR) Negative PFSH All Active Problems Palliative care patient (Acute) Aspiration pneumonia (Acute) Oropharyngeal dysphagia (Acute) Advanced care planning/counseling discussion (Acute) Mass of thyroid gland (Acute) Discharge planning issues (Acute) DVT prophylaxis (Acute) Hypernatremia (Acute) Folate deficiency (Acute) B12 deficiency (Acute) [place] (acute kidney injury) (Acute) Sacral decubitus ulcer (Acute) Indwelling Ribeiro catheter present (Acute) Communication deficit (Acute) Unable to walk (Acute) Dysphagia (Acute) 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) Schizoaffective disorder (Acute) Sepsis (Acute) UTI (urinary tract infection) (Acute) Pneumonia (Acute) Medical History Atrial fibrillation BPH (benign prostatic hyperplasia) Chronic kidney disease HTN (hypertension) Hx of hyperlipidemia Parkinsons disease Social History Smoking/Tobacco Use Status: Never Smoking risk assessment performed?: Yes Substance use type: does not use Time Spent with Patient Time Spent with Patient: 45-69 minutes Time was spent: preparing to see the patient(eg.review tests), ordering medications,tests, procedures, indepentently interpreting results and care coordination
[2022-12-23] MEDS: Scopolamine 1 MG/3 DAYS PATCH TD (13:49)
--- NOTE | 2022-12-23 14:34 | PDOC.CMDIS ---
- If Service Date Differs Date of service: 12/23/22 Time of Service: 14:34 LACE Index Scoring Tool - Questions: Length of Stay (in days): 7 - 13 Acuity (Admit via E.D.?): Yes Comorbidities: Liver or Renal Disease E.D. Visits: 2 - Answers: Total Score: 15 Risk of Readmission: High Risk Care Management Discharge Reason for Hospitalization: Aspiration Pneumonia, Acute Hypoxic Respiratory Failure. Discharge Plan: Cesario is discharged back to [facility]. Cesario will follow up with facility and community providers and discharge plan of care as prescribed. Cesario is transported Via EMS. CM contacted pts brother Dougie prior to discharge, no message is left, voicemail is full. Patient/Family Education Needs: Review discharge instructions, limitations, medications and plan to follow up with facility and community providers. Discuss ask me three. Services Needed at Discharge: Senior Living Facility (Returned to [facility]), Transportation (EMS ([place]), coordinated by CM)
--- NOTE | 2022-12-26 08:38 | PT.INDS ---
Date of service: 12/23/22 PT Notes Visit Reasons: Aspiration Pneumonia, Acute Hypoxic Respiratory Fa Physical Therapy Inpatient Discharge Summary Date: 12/23/2022 Dates of Service: 12/12/2022 through 12/22/2022 This is a clinical summary of care provided for the duration of dates listed above. No charge was made in the completion of this documentation. Referring Doctor: Danita Marquez MD PT Orders: PT CONSULT: Limited ability Precautions: Fall. Standard. Dysphagia. Patient Profile/Admitting Diagnosis:Melania is a 77 yo male that presented to the ER on 12/10/22 from rehab facility with fever, altered mental status, and possible aspiration. Also found to have sacral decubitous ulcer. PMHX: See EMR Social History/Home Situation: Currently residing at rehab facility. Equipment Owned/DME: Subjective:? NT. See most recent ELECTRIC ACCOUNTING MACHINE OPERATOR notes. Objective:? General Observation: NT. See most recent ELECTRIC ACCOUNTING MACHINE OPERATOR notes. Mental Status: NT. See most recent ELECTRIC ACCOUNTING MACHINE OPERATOR notes. Pain: NT. See most recent ELECTRIC ACCOUNTING MACHINE OPERATOR notes. ROM: Right Upper Extremity: Shoulder Flexion impaired. Shoulder abduction impaired. Elbow flexion WFL. Wrist flexion WFL. Opening and closing of hand WFL. Left Upper Extremity: Shoulder Flexion impaired. Shoulder abduction impaired. Elbow flexion WFL. Wrist flexion WFL. Opening and closing of hand WFL. Right Lower Extremity: Hip flexion impaired. Hip abduction impaired. Knee flexion impaired. Ankle dorsiflexion impaired. Ankle plantarflexion WFL. Left Lower Extremity: Hip flexion impaired. Hip abduction impaired. Knee flexion impaired. Ankle dorsiflexion impaired. Ankle plantarflexion WFL. Strength: Right Upper Extremity: Shoulder flexors 2/5. Shoulder abductors 2/5. Elbow flexors 5/5. Elbow extensors 4/5. Straw Hat Brim Cutter Operator strong. Left Upper Extremity: Shoulder flexors 2/5. Shoulder abductors 2/5. Elbow flexors 5/5. Elbow extensors 4/5. Straw Hat Brim Cutter Operator strong. Right Lower Extremity: Hip flexors 2-/5. Knee flexors 3/5. Knee extensors 3/5. Ankle dorsiflexors 2/5. Ankle plantarflexors 5/5. Left Lower Extremity: Hip flexors 2-/5. Knee flexors 3/5. Knee extensors 3/5. Ankle dorsiflexors 2/5. Ankle plantarflexors 5/5. Sensation:?Intact as to pain and pressure on bilateral lower extremities. BED MOBILITY/TRANSFERS? Sit-stand: SBA with use of STEDY ? Stand-sit: SBA with use of STEDY ? GAIT: Not assessed ? THEREX provided during this episode of care: Patient was instructed in several exercises for strengthening, completed in a standing position in STEDY and in a seated position, to include: Functional sit<>stand x10 with cueing for improved posture LAQ with yellow Tband x15 Bicep curls with 3#x15 Shoulder IR/ER with 3# x15 Punch ups with 3# x10 Balance:? Static Sitting: Fair, leans left Dynamic Sitting: Poor Static Standing: Unable Dynamic Standing: Unable Special Tests: Mobility Limitations Standardized Measure [facility] AM-PAC 6 clicks Basic Mobility Inpatient Short Form: Raw Score: 6 ? CMS Score: 100% Informed Consent/Education:?Patient instructed in purpose of PT consult and plan of care. Assessment: Patient presents with clinical signs and symptoms consistent with current/admitting diagnoses that have resulted to mobility limitations, gait instability, generalized weakness, and impairment of motor control as demonstrated by the following impairment level findings: 1. Decreased strength to major muscle groups 2. Impaired sitting/standing balance 3. Impaired activity tolerance 4. Limitation of joint range of motion in shoulders and hips Impairments are contributing to the following functional limitations: 1. Dependent bed mobility skills 2. Dependent with transfers 3. Dependent for ADL performance Goals: Goals x1 week 1. Supine-Sit: Min A NOT MET 2. Sit-Supine: Min A NOT MET 3. Sit-Stand: Min A with stedy lift NOT MET 4. Stand-Sit: Min A with stedy lift NOT MET 5. Good static and dynamic sitting balance NOT MET Discharge Plan DISCHARGE RECOMMENDATIONS: SNF for continued rehabilitation TREATMENT CODE/TIME: DE Thank you for the opportunity to participate in the care of this patient. Penelope Cruz PT, DPT, CLT [facility] [place], [place]
== END 2022-12-23 14:43 | disposition skilled nursing facility (03) | DRG 177 ==
LOC: ER 14:10 → MS 14:33
PROVIDERS: Family Medicine; Internal Medicine; Surgery; Admitting Provider Internal Medicine; Emergency Provider Emergency Medicine; PCP Family Medicine; Visit Provider Internal Medicine
PROC: 0DH64UZ Insertion of Feeding Device into Stomach, Percutaneous Endoscopic Approach (ICD-10-PCS; CPT 49440; principal; 2022-12-21 15:00)
DX: J69.0 Pneumonitis due to inhalation of food and vomit (principal); J96.01 Acute respiratory failure with hypoxia; L89.313 Pressure ulcer of right buttock, stage 3; L89.153 Pressure ulcer of sacral region, stage 3; E87.0 Hyperosmolality and hypernatremia; N17.9 Acute kidney failure, unspecified; G21.19 Other drug induced secondary parkinsonism; F25.9 Schizoaffective disorder, unspecified; E86.0 Dehydration; E53.8 Deficiency of other specified B group vitamins; R13.12 Dysphagia, oropharyngeal phase; R26.2 Difficulty in walking, not elsewhere classified; I48.91 Unspecified atrial fibrillation; N40.0 Benign prostatic hyperplasia without lower urinary tract symptoms; N18.9 Chronic kidney disease, unspecified; I12.9 Hypertensive chronic kidney disease with stage 1 through stage 4 chronic kidney disease, or unspecified chronic kidney disease; E78.5 Hyperlipidemia, unspecified; E07.9 Disorder of thyroid, unspecified; R47.9 Unspecified speech disturbances; Z99.3 Dependence on wheelchair
CPT/HCPCS: 43830; 36410; 36415; 36416; 51702; 731; 74177; 80048; 80053; 80186; 82962; 83090; 84145; 87040; 87081; 87449; 87635; 92526; 92611; 96361; 96365; 96366; 96367; 97110; 97163; 97530; 99221; 99222; 99232; 99285; 00731; 71045; 71260; 74018; 74221; 80202; 81003; 81015; 82607; 82746; 83605; 83735; 84132; 84134; 84484; 85025; 86140; 87070; 87086; 87205; 87581; 87899; 94640; 94664; 94760; 99223; 99231; 99233; 99239; J0131; J1644; J1885; J2405; J2543; J2704; J3480; J3490; J7060; J7620; Q9967

== ENCOUNTER → 2022-12-20 15:00 | Outpatient (BNVA) | payer MEDICARE, MEDICAID, SELFPAY | PROVIDERS: PCP Family Medicine; Referring Provider Family Medicine; Visit Provider Psychiatry & Neurology Neurology ==

== ENCOUNTER 2023-01-05 09:31 | Inpatient (IN) | payer MEDICARE, MEDICAID, SELFPAY ==
[2023-01-05] VITALS (70 sets, daily range): BP systolic 89–113; BP diastolic 64–82; PULSE 101–128; RESP 8–35; TEMP 36.8–39.7; O2SAT 91–96
--- NOTE | 2023-01-05 09:30 | RT.EKG_ITS ---
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
--- NOTE | 2023-01-05 09:45 | DI.RAD_ITS ---
Exam(s) XR PORTABLE CHEST AP EXAM: XR PORTABLE CHEST AP CLINICAL HISTORY: tachycardia, fever TECHNIQUE: 2D digital imaging was performed of the chest. One image was obtained. An AP view was ob tained. COMPARISON: CR,XR XR PORTABLE CHEST AP from 12/17/2022 FINDINGS: MEDIASTINUM: Normal. HEART: Normal. PULMONARY VASCULATURE: Normal. LUNGS: Clear. PLEURAL SPACE: No pleural effusion or pneumothorax. BONE:Within normal limits for the patient's age. OTHER FINDINGS:There is again seen elevation of the right hemidiaphragm. There is a large amount of stool seen in the colon. IMPRESSION: No acute pulmonary findings. DATA REPOSITORY: RADIATION DOSE DELIVERED:
--- NOTE | 2023-01-05 09:54 | W.ED.GENAD ---
Discharge Plan Disposition Patient Disposition: Admit to [facility] Discharge Details Chief Complaint: Fever Clinical Impression: Acute UTI, [place] (acute kidney injury), Sepsis Primary Care Provider: Henrik Mukherjee ED Provider: Pasquale Hardin Home Meds and New Rx's Prescriptions: No Action polyethylene glycol 3350 [Miralax] 17 gram/dose powder 17 gm PO DAILY PRN entacapone [Comtan] 200 mg tablet 200 mg PO TID triamcinolone acetonide 0.1 % Cream 1 applic TOPICAL BID Rx Instructions: APPLY TWICE A DAY TO CALVES FOR DRYNESS magnesium hydroxide [Milk of Magnesia] 400 mg/5 mL Suspension 30 ml PO QHS PRN Fleet Enema 19-7 gram/118 mL Enema 118 ml KS ONCE PRN acetaminophen 325 mg Tablet 650 mg PO 6XD PRN (Reason: Fever) amantadine HCl 100 mg tablet 100 mg PO TID aspirin 81 mg Tablet,Chewable 81 mg PO DAILY benztropine 1 mg tablet 1 mg PO DAILY carbidopa-levodopa 25-100 mg tablet 2 tab PO QID bisacodyl [Dulcolax (bisacodyl)] 10 mg Suppository 10 mg KS DAILY PRN (Reason: IF NO RESULT FROM mom OR MIRALAX) cyanocobalamin (vitamin B-12) [Vitamin B-12] 500 mcg Tablet 1,000 mcg PO DAILY Qty: 0 0RF folic acid 1 mg Tablet 1 mg PO DAILY Qty: 0 0RF One Daily Multi-Vit w-Mineral 4.5 mg iron Tablet 1 tab PO DAILY@1000 Qty: 0 0RF zinc sulfate [Zinc-220] 50 mg zinc (220 mg) Capsule 220 mg PO DAILY Qty: 12 0RF Rx Instructions: for 12 days starting 12/05/22 TB. magnesium oxide 420 mg Tablet 420 mg PO DAILY ascorbic acid (vitamin C) [Vitamin C] 500 mg tablet 500 mg PO DAILY thiamine mononitrate (vit B1) [Vitamin B-1 (mononitrate)] 100 mg Tablet 100 mg PO DAILY Qty: 0 0RF diltiazem HCl [Cardizem] 60 mg Tablet 60 mg PO TID Qty: 0 0RF Medical Decision Making 77-year-old male history of schizoaffective disorder, parkinsonism, presents with fever and tachycardia of unknown duration. Patient largely nonverbal. Sitting staring forward rigid posture, tachycardic to the 120s, febrile on arrival, appears dry, diaphoretic, dark cloudy brown urine in Wilkerson bag, likely urosepsis. Muscles to consider viral syndrome versus pneumonia. Will fluid hydrate, will provide diuretics, empiric antibiotics, blood cultures urine culture, labs admission likely 10: 48 evidence of V[place] consider postobstructive given initial appearance of urine now putting out clear urine, hyperkalemia likely related to [place]. Have placed order for calcium gluconate insulin and albuterol, EKG normal P waves and intervals. Antibiotics have been infused fluids running. 14: 27 to be admitted for urosepsis, [place] to continue with antibiotics and fluid hydration. HPI General Date/Time Provider Initiated Documentation: 01/05/23 09:44. HPI Narrative: 77-year-old male history of schizoaffective disorder, parkinsonism, recent PEG tube placement, presents with fever and tachycardia. Patient is largely nonverbal. Related Data Home Medications Medication Instructions Recorded Confirmed entacapone 200 mg tablet (Comtan) 200 mg PO TID 11/06/18 12/10/22 polyethylene glycol 3350 17 17 gm PO DAILY PRN 11/06/18 12/10/22 gram/dose oral powder (Miralax) acetaminophen 325 mg tablet 650 mg PO 6XD PRN Fever 11/25/22 12/10/22 amantadine HCl 100 mg tablet 100 mg PO TID 11/25/22 12/10/22 aspirin 81 mg chewable tablet 81 mg PO DAILY 11/25/22 12/10/22 benztropine 1 mg tablet 1 mg PO DAILY 11/25/22 12/10/22 bisacodyl 10 mg rectal suppository 10 mg KS DAILY PRN IF NO RESULT 11/25/22 12/10/22 (Dulcolax (bisacodyl)) FROM mom OR MIRALAX carbidopa 25 mg-levodopa 100 mg 2 tab PO QID 11/25/22 12/10/22 tablet magnesium hydroxide 400 mg/5 mL 30 ml PO QHS PRN 11/25/22 12/10/22 oral suspension (Milk of Magnesia) sodium phosphates 19 gram-7 118 ml KS ONCE PRN 11/25/22 12/10/22 gram/118 mL enema (Fleet Enema) triamcinolone acetonide 0.1 % 1 applic topical BID 11/25/22 12/10/22 topical cream cyanocobalamin (vitamin B-12) 500 1,000 mcg PO DAILY #0 tabs 11/28/22 12/10/22 mcg tablet (Vitamin B-12) folic acid 1 mg tablet 1 mg PO DAILY #0 tabs 11/28/22 12/10/22 multivitamin with minerals-ferrous 1 tab PO DAILY@1000 #0 tabs 11/28/22 12/10/22 sulfate 4.5 mg iron tablet (One Daily Multivitamins with Minerals) zinc sulfate 50 mg zinc (220 mg) 220 mg PO DAILY #12 caps 11/28/22 12/10/22 capsule (Zinc-220) ascorbic acid (vitamin C) 500 mg 500 mg PO DAILY 12/10/22 12/10/22 tablet (Vitamin C) magnesium oxide 420 mg tablet 420 mg PO DAILY 12/10/22 12/10/22 diltiazem HCl 60 mg tablet 60 mg PO TID #0 tabs 12/23/22 (Cardizem) thiamine mononitrate (vit B1) 100 100 mg PO DAILY #0 tabs 12/23/22 mg tablet (Vitamin B-1 (mononitrate)) Previous Rx's Medication Instructions Recorded cyanocobalamin (vitamin B-12) 500 1,000 mcg PO DAILY #0 tabs 11/28/22 mcg tablet (Vitamin B-12) folic acid 1 mg tablet 1 mg PO DAILY #0 tabs 11/28/22 multivitamin with minerals-ferrous 1 tab PO DAILY@1000 #0 tabs 11/28/22 sulfate 4.5 mg iron tablet (One Daily Multivitamins with Minerals) zinc sulfate 50 mg zinc (220 mg) 220 mg PO DAILY #12 caps 11/28/22 capsule (Zinc-220) diltiazem HCl 60 mg tablet 60 mg PO TID #0 tabs 12/23/22 (Cardizem) thiamine mononitrate (vit B1) 100 100 mg PO DAILY #0 tabs 12/23/22 mg tablet (Vitamin B-1 (mononitrate)) Allergies Allergy/AdvReac Type Severity Reaction Status Date / Time No Known Allergies Allergy Verified 11/06/18 16:28 General Stated Complaint: Fever JEANETTE: 2 Review of Systems Narrative: Review of Systems Constitutional: Fever Eyes: negative ENT: negative Cardiovascular: Tachycardia Respiratory: negative Gastrointestinal: negative : negative Musculoskeletal: negative Skin: negative Neurologic: negative Psych: negative PFSH All Active Problems (Updated 01/05/23 @ 14:32 by Pasquale Hardin MD) Acute UTI (Acute) [place] (acute kidney injury) (Acute) Sepsis (Acute) Palliative care patient (Acute) Oropharyngeal dysphagia (Acute) Mass of thyroid gland (Acute) Folate deficiency (Acute) B12 deficiency (Acute) [place] (acute kidney injury) (Acute) Sacral decubitus ulcer (Acute) Indwelling Wilkerson catheter present (Acute) Communication deficit (Acute) Unable to walk (Acute) Dysphagia (Acute) 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) Schizoaffective disorder (Acute) Sepsis (Acute) UTI (urinary tract infection) (Acute) Pneumonia (Acute) Medical History Atrial fibrillation BPH (benign prostatic hyperplasia) Chronic kidney disease HTN (hypertension) Hx of hyperlipidemia Parkinsons disease Social History Smoking/Tobacco Use Status: Never Smoking risk assessment performed?: Yes Alcohol Intake: never Substance use type: does not use Exam Narrative Exam Narrative: Physical Examination General: alert, awake, HEENT: normocephalic, atraumatic; PERRL, EOM intact, conjunctiva normal; no nasal discharge; drying of the oral mucosa Neck: supple, trachea midline; full ROM Chest: normal to inspection Respiratory: normal respiratory effort, speaking in full sentences, clear to auscultation, no wheezing, rales or rhonchi Cardiac: Tachycardia, regular rhythm, S1S2 intact, no murmurs rubs or gallops GI: abdomen soft, non-tender, non-distended; no palpable mass or hepatosplenomegaly : Wilkerson catheter in place, dark brown cloudy urine Skin: Diaphoretic; no lesions, rashes or trauma appreciated Neuro: Nonverbal, rigid posture, staring forward not moving arms and legs Course Vital Signs Vital signs: Vital Signs Pulse 125 H 01/05/23 09:32 Respiratory Rate 18 01/05/23 09:32 Pulse Oximetry 95 01/05/23 09:32 Temperature 39.7 C H 01/05/23 09:41 Temperature Source Rectal 01/05/23 09:41 Pulse 125 H 01/05/23 09:32 Respiratory Rate 18 01/05/23 09:32 Respiratory Effort Labored 01/05/23 09:36 Blood Pressure 113/82 01/05/23 09:35 Pulse Oximetry 95 01/05/23 09:32 Oxygen Delivery Method Room Air 01/05/23 09:32 Oxygen Flow Rate 0 01/05/23 09:32 Lab/Test Results Lab/Test Results: 01/05/23 09:49 Blood Blood Culture - Pending 01/05/23 09:49 Blood Blood Culture - Pending
[2023-01-05 10:06] LABS: Abs Immature Grans 0.01 10^3/uL (0.0-0.06); Absolute Basophil Count 0.02 10^3/uL (0.0-0.2); Absolute Monocyte Count 0.15 10^3/uL (0.1-0.8); Absolute Neutrophil Count 6.52 10^3/uL (1.2-6.7); Basophils % 0.3; HCT 47.2 % (40.0-50.0); HGB 16.4 g/dL (13.5-17.5); Immature Grans % 0.1; Lymphocytes % 2.9; MCHC 34.7 % (32.0-36.0); MCV 92 fL (80-95); MPV 10.6 fL (8.0-11.0); Monocytes % 2.2; Neutrophils % 94.5; Platelet Count 269 10^3/uL (130-400); RBC 5.13 10^6/uL (4.36-5.78); RDW 12.7 % (11.8-14.1); RDW-SD 43.6 fL
[2023-01-05 10:08] LABS: Lactate 5.5 mmol/L (0.6-1.4)
[2023-01-05 10:20] LABS: Bilirubin Negative (Negative); Blood Moderate (Negative); Clarity Turbid (Clear); Glucose Negative (Negative); Ketones Negative (Negative); Leukocyte Esterase Large (Negative); Nitrite Positive (Negative); Specific Gravity 1.015 (1.005-1.025); Urobilinogen 0.2 mg/dL (Up to 0.2); pH >= 9.0 (5-8)
[2023-01-05 10:29] LABS: ALT 16 U/L (16-63); AST 14 U/L (15-37); Alkaline Phosphatase 139 U/L (46-116); Anion Gap 14.4 mmol/L (3-11); BUN 54 mg/dL (7-18); Bilirubin, Total 0.6 mg/dL (0.2-1.0); CO2 16.6 mmol/L (21.0-32.0); Calcium 9.5 mg/dL (8.5-10.1); Chloride 100 mmol/L (98-107); Estimated GFR 16.87 (mL/min/1.73m2); Glucose 330 mg/dL (74-106); Sodium 131 mmol/L (136-145); Total Protein 8.2 g/dL (6.4-8.2)
[2023-01-05] MEDS: Normal Saline 1,000 ML 1000 ML IV (10:31)
[2023-01-05] MEDS: cefTRIAXone 1 GM/50 ML BAG IVPB (10:31)
[2023-01-05 10:34] LABS: Bacteria Moderate HPF (Negative); C & S Indicated? C&S Done As Ordered; Casts Negative LPF (Negative); Crystals Negative HPF (Negative); Epithelial Cells Rare HPF (Negative); Mucus Negative (Negative); WBC >50 HPF (0-5)
[2023-01-05 10:37] LABS: CREATININE 3.6 mg/dL (0.70-1.30)
[2023-01-05 10:52] LABS: COVID-19 PCR Negative (Negative); Influenza A PCR Negative (Negative); Influenza B PCR Negative (Negative); RSV PCR Negative (Negative)
[2023-01-05 10:55] LABS: Source Nasopharynx
[2023-01-05] MEDS: CALCIUM GLUCONATE in NaCl 1 GM/50 ML BAG IVPB (10:59)
[2023-01-05] MEDS: Insulin REGULAR-Human 100 UNITS/ML UNIT 6 UNITS IV (11:15)
[2023-01-05] MEDS: Albuterol 2.5 MG/3 ML INH SOLN VIAL UPD (11:20)
[2023-01-05 12:18] LABS: Anion Gap 15.1 mmol/L (3-11); BUN 54 mg/dL (7-18); CO2 15.9 mmol/L (21.0-32.0); CREATININE 3.3 mg/dL (0.70-1.30); Calcium 9.4 mg/dL (8.5-10.1); Chloride 104 mmol/L (98-107); Estimated GFR 18.73 (mL/min/1.73m2); Glucose 220 mg/dL (74-106); Sodium 135 mmol/L (136-145)
[2023-01-05 12:21] LABS: Potassium 4.8 mmol/L (3.5-5.1)
--- NOTE | 2023-01-05 16:33 | W.PM.HP.N ---
Date of service: 01/05/23 Time of Service: 16:33 Assessment and Plan Assessment and plan (1) UTI (urinary tract infection): Status: Acute Assessment and plan: Chronic indwelling catheter - changed in ED; PH >9.0; Protein >300; Ketones neg; Moderate blood, nitrite positive, large leukocyte, WBC >50 Ceftriaxone Vancomycin Urine Cx pending IVF NS @ 125 ml/h (2) Sepsis: Status: Resolved Assessment and plan: Lactate 5.5; will trend IVF NS bolus in ED; NS 125 ml/h Qualifiers: Acute renal failure type: unspecified Sepsis acute organ dysfunction status: with acute organ dysfunction Sepsis type: sepsis due to unspecified organism Severe sepsis acute organ dysfunction type: acute renal failure Severe sepsis shock status: without septic shock Qualified Code(s): A41.9 - Sepsis, unspecified organism; R65.20 - Severe sepsis without septic shock; N17.9 - Acute kidney failure, unspecified (3) [place] (acute kidney injury): Status: Acute Assessment and plan: Creatinine 3.3; BUN 54; IVF; relieved obstruction; monitor (4) Sacral decubitus ulcer: Status: Acute Assessment and plan: Stage III sacral decubitus - wound care consult; follow recommendations (5) Atrial fibrillation: Assessment and plan: Heart tones sound to be regular. His A-fib seems to be paroxysmal. He remains on diltiazem 60 mg TID. Patient's not anticoagulated other than daily aspirin 81 mg daily; will add enoxaparin while hospitalized (6) Parkinsonism due to drugs: Status: Acute Assessment and plan: Dr. Claribel Solis has seen the patient last admission a couple of weeks ago and made recommendations and the timing of his entacapone as well as changes in the dosage of his Sinemet, will continue per her recommendations (7) Mass of thyroid gland: Status: Chronic Assessment and plan: Follow-up with outpatient dedicated thyroid ultrasound and if indicated referral for biopsy. (8) DVT prophylaxis: Status: Deleted Assessment and plan: Enoxaparin (9) Indwelling Wilkerson catheter present: Status: Chronic Assessment and plan: Changed in ED (10) Communication deficit: Status: Chronic (11) Unable to walk: Status: Chronic Assessment and plan: PT consult (12) Hyperkalemia: Status: Acute Assessment and plan: In ED 6.0; treated with Insulin, albuterol Calcium gluconate, IVF; repeat down to 4.8 - will recheck @ 1800h (13) PEG (percutaneous endoscopic gastrostomy) status: Status: Acute Assessment and plan: New since last admission; monitor - no s/s of infection; patent (14) Discharge planning issues: Status: Acute Assessment and plan: Return to [facility] when stable. discussed with Dr Rey History of Present Illness History of Present Illness Chief Complaint: Fever and rapid heart rate Narrative: 77-year-old male history of schizoaffective disorder, parkinsonism, presented to the [facility] ED with fever and tachycardia of unknown duration, from the [facility].? Patient largely nonverbal.? In the ED he was sitting staring forward rigid posture, tachycardic, sinus rhythm to the 120s, febrile 39.7 on arrival, appeared dry, diaphoretic, dark, cloudy brown urine in Wilkerson bag, likely urosepsis.? Muscles to consider viral syndrome versus pneumonia.? He was started on IV fluid hydration, started on diuretics, empiric antibiotics, blood cultures, urine culture pending. Labs in the ED showed evidence of [place], consider post-obstructive given initial appearance of urine now putting out clear urine, hyperkalemia likely related to [place].? Have placed order for calcium gluconate insulin and albuterol, EKG normal P waves and intervals.? Antibiotics have been infused fluids running. Patient admitted to medical floor, stable. Discussed with Dr Rey Review of Systems All systems reviewed & are unremarkable except as noted in HPI and below PFSH All Active Problems (Updated 01/07/23 @ 09:40 by Mallorie Estevez NP) Discharge planning issues (Acute) PEG (percutaneous endoscopic gastrostomy) status (Acute) Hyperkalemia (Acute) Acute UTI (Acute) [place] (acute kidney injury) (Acute) Sepsis (Acute) Palliative care patient (Acute) Oropharyngeal dysphagia (Acute) Mass of thyroid gland (Chronic) Folate deficiency (Acute) B12 deficiency (Acute) [place] (acute kidney injury) (Acute) Sacral decubitus ulcer (Acute) Indwelling Wilkerson catheter present (Chronic) Communication deficit (Chronic) Unable to walk (Chronic) Dysphagia (Acute) 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) Schizoaffective disorder (Acute) UTI (urinary tract infection) (Acute) Pneumonia (Acute) Medical History Atrial fibrillation BPH (benign prostatic hyperplasia) Chronic kidney disease HTN (hypertension) Hx of hyperlipidemia Parkinsons disease Social History Smoking/Tobacco Use Status: Never Smoking risk assessment performed?: Yes Alcohol Intake: never Substance use type: does not use Meds Allergies and Home Medications Allergies Allergy/AdvReac Type Severity Reaction Status Date / Time No Known Allergies Allergy Verified 01/05/23 14:56 Home Medications Medication Instructions Recorded Confirmed Type entacapone 200 mg tablet (Comtan) 200 mg PO TID 11/06/18 01/05/23 History polyethylene glycol 3350 17 17 gm PO DAILY PRN PRN 11/06/18 01/06/23 History gram/dose oral powder (Miralax) acetaminophen 325 mg tablet 650 mg PO 6XD PRN Fever 11/25/22 01/05/23 History aspirin 81 mg chewable tablet 81 mg PO DAILY 11/25/22 01/05/23 History benztropine 1 mg tablet 1 mg PO DAILY 11/25/22 01/05/23 History carbidopa 25 mg-levodopa 100 mg 2 tab PO QID 11/25/22 01/05/23 History tablet magnesium hydroxide 400 mg/5 mL 30 ml PO BID PRN PRN 11/25/22 01/06/23 History oral suspension (Milk of Magnesia) cyanocobalamin (vitamin B-12) 500 1,000 mcg PO DAILY #0 tabs 11/28/22 01/05/23 Rx mcg tablet (Vitamin B-12) folic acid 1 mg tablet 1 mg PO DAILY #0 tabs 11/28/22 01/05/23 Rx multivitamin with minerals-ferrous 1 tab PO DAILY@1000 #0 tabs 11/28/22 01/05/23 Rx sulfate 4.5 mg iron tablet (One Daily Multivitamins with Minerals) zinc sulfate 50 mg zinc (220 mg) 220 mg PO DAILY #12 caps 11/28/22 01/06/23 Rx capsule (Zinc-220) ascorbic acid (vitamin C) 500 mg 500 mg PO DAILY 12/10/22 01/06/23 History tablet (Vitamin C) diltiazem HCl 60 mg tablet 60 mg PO TID #0 tabs 12/23/22 01/05/23 Rx (Cardizem) thiamine mononitrate (vit B1) 100 100 mg PO DAILY #0 tabs 12/23/22 01/06/23 Rx mg tablet (Vitamin B-1 (mononitrate)) amantadine HCl 50 mg/5 mL oral 100 mg PO TID 01/05/23 01/06/23 History solution scopolamine base 1 mg over 3 days 1 mg transdermal Q72H 01/05/23 01/06/23 History transdermal patch magnesium oxide 400 mg PO DAILY 01/06/23 01/06/23 History Exam Narrative Exam Narrative: Physical Examination General: alert, awake, HEENT: normocephalic, atraumatic; PERRL, EOM intact, conjunctiva normal; no nasal discharge; drying of the oral mucosa Neck: supple, trachea midline; full ROM Chest: normal to inspection Respiratory: normal respiratory effort, speaking in full sentences, clear to auscultation, no wheezing, rales or rhonchi Cardiac: Tachycardia, regular rhythm, S1S2 intact, no murmurs rubs or gallops GI: abdomen soft, non-tender, non-distended; no palpable mass or hepatosplenomegaly : Wilkerson catheter in place, dark brown cloudy urine Skin: Diaphoretic; no lesions, rashes or trauma appreciated Neuro: Nonverbal, rigid posture, staring forward not moving arms and legs Results Labs 01/05/23 09:57 01/05/23 11:58 Labs: Laboratory Results - last 24 hr 01/05/23 01/05/23 01/05/23 09:57 09:57 09:57 WBC 6.90 RBC 5.13 Hgb 16.4 Hct 47.2 MCV 92 MCH 32.0 MCHC 34.7 RDW 12.7 Plt Count 269 MPV 10.6 Immature Gran % 0.1 Neutrophils % 94.5 Lymphocytes % 2.9 Monocytes % 2.2 Eosinophils % 0.0 Basophils % 0.3 Nucleated RBC % 0.0 Absolute Neutrophils 6.52 Absolute Lymphocytes 0.20 L Absolute Monocytes 0.15 Absolute Eosinophils 0.00 Absolute Basophils 0.02 VBG Lactate 5.5 H* Sodium 131 L Potassium 6.0 H Chloride 100 Carbon Dioxide 16.6 L Anion Gap 14.4 H BUN 54 H Creatinine 3.6 H* Est GFR (CKD-EPI 2020) 16.87 Glucose 330 H Calcium 9.5 Total Bilirubin 0.6 AST 14 L ALT 16 Alkaline Phosphatase 139 H Total Protein 8.2 Albumin 3.0 L Urine Color Urine Clarity Urine pH Ur Specific [place] Urine Protein Urine Ketones Urine Blood Urine Nitrite Urine Bilirubin Urine Urobilinogen Ur Leukocyte Esterase Urine RBC Urine WBC Ur Epithelial Cells Urine Crystals Urine Bacteria Urine Casts Urine Mucus Ur Culture Indicated? Urine Glucose COVID-19 Source SARS-CoV-2 (PCR) Influenza Type A (PCR) Influenza Type B (PCR) RSV (PCR) 01/05/23 01/05/23 01/05/23 09:58 10:04 11:58 WBC RBC Hgb Hct MCV MCH MCHC RDW Plt Count MPV Immature Gran % Neutrophils % Lymphocytes % Monocytes % Eosinophils % Basophils % Nucleated RBC % Absolute Neutrophils Absolute Lymphocytes Absolute Monocytes Absolute Eosinophils Absolute Basophils VBG Lactate Sodium 135 L Potassium 4.8 D Chloride 104 Carbon Dioxide 15.9 L Anion Gap 15.1 H BUN 54 H Creatinine 3.3 H Est GFR (CKD-EPI 2020) 18.73 Glucose 220 H Calcium 9.4 Total Bilirubin AST ALT Alkaline Phosphatase Total Protein Albumin Urine Color Yellow Urine Clarity Turbid Urine pH >= 9.0 H Ur Specific [place] 1.015 Urine Protein >=300 H Urine Ketones Negative Urine Blood Moderate H Urine Nitrite Positive H Urine Bilirubin Negative Urine Urobilinogen 0.2 Ur Leukocyte Esterase Large H Urine RBC 5-10 H Urine WBC >50 H Ur Epithelial Cells Rare Urine Crystals Negative Urine Bacteria Moderate Urine Casts Negative Urine Mucus Negative Ur Culture Indicated? C&S Done As Ordered Urine Glucose Negative COVID-19 Source Nasopharynx SARS-CoV-2 (PCR) Negative Influenza Type A (PCR) Negative Influenza Type B (PCR) Negative RSV (PCR) Negative Last Vital Signs Temp 39.7 C H 01/05/23 09:41 Pulse 109 H 01/05/23 15:36 Resp 27 H 01/05/23 15:36 BP 99/70 L 01/05/23 15:36 Pulse Ox 96 01/05/23 15:36 Time Spent Time spent with Patient: 55-74 minutes Time was spent: preparing to see the patient(eg.review tests), obtaining and/or reviewing separately otained hiistory, ordering medications,tests, procedures, referring, communicating with other health career transition specialist, indepentently interpreting results, counseling the patient and care coordination
[2023-01-05 18:48] LABS: Lactate 2.6 mmol/L (0.6-1.4)
[2023-01-05 19:00] LABS: ALT 17 U/L (16-63); AST 25 U/L (15-37); Albumin 2.7 g/dL (3.4-5.0); Alkaline Phosphatase 111 U/L (46-116); Anion Gap 12.6 mmol/L (3-11); BUN 58 mg/dL (7-18); Bilirubin, Total 0.4 mg/dL (0.2-1.0); CO2 18.4 mmol/L (21.0-32.0); CREATININE 3.1 mg/dL (0.70-1.30); Calcium 9.6 mg/dL (8.5-10.1); Chloride 105 mmol/L (98-107); Estimated GFR 20.19 (mL/min/1.73m2); Glucose 166 mg/dL (74-106); Sodium 136 mmol/L (136-145); Total Protein 7.6 g/dL (6.4-8.2)
[2023-01-05 19:23] LABS: Procalcitonin 7.1 ng/mL
[2023-01-05] MEDS: Enoxaparin 30 MG/0.3 ML SYR SC (19:48)
[2023-01-05] MEDS: Normal Saline 1,000 ML 125 ML IV (19:48)
[2023-01-05] MEDS: Carbidopa 25/Levodopa 100 TAB PO (19:49)
[2023-01-05] MEDS: VANCOMYCIN 1,500 MG in Normal Saline 250 ML 166.667 MG IVPB (20:57)
[2023-01-05] MEDS: Simvastatin 20 MG TAB PO (21:39)
[2023-01-06] VITALS (10 sets, daily range): BP systolic 93–106; BP diastolic 61–70; PULSE 88–103; RESP 16–24; TEMP 36.6–38.1; O2SAT 93–97
--- NOTE | 2023-01-06 | DI.US_ITS ---
Exam(s) US RENAL EXAM: US RENAL CLINICAL HISTORY: urosepsis. TECHNIQUE: Carvalho scale, color and spectral Doppler were used. COMPARISON: US US RENAL from 11/24/[address] CHEST/ABD/PEL W from 12/10/2022 FINDINGS: Renal size in cm: Right: 10.7. Left: 10.9. Echogenicity: Normal. Hydronephrosis: No. Cyst or mass: There are bilateral simple renal cysts. These appears stable compared to prior CT scan . There is a 1.3 x 1.2 x 1.4 cm simple cyst in the inferior pole of the right kidney. There is a 1. 6 x 1.6 x 1.7 cm cyst in the superior pole of the right kidney. There is a 1.7 x 1.7 x 2.0 cm exophy tic cyst in the inferior pole of the left kidney. Nephrolithiasis: No. Other findings: None. Bladder:The bladder wall appears thickened. There is a Wilkerson catheter balloon in place. Ureteral jets: Right: Not visualized on this examination. Left: Not visualized on this examination. Prevoid vol:146 cc Postvoid vol:The Wilkerson catheter was clamped during the examination. Prostate: 69 cc Renal color flow: Symmetric and within normal limits. IMPRESSION: 1. Thickening of the wall of the urinary bladder. This may be due to underdistention. An infectious /inflammatory cystitis cannot be excluded. There is a Wilkerson catheter in place. 2. Simple bilateral renal cysts. No follow-up is recommended. 3. Enlarged prostate gland. DATA REPOSITORY:
[2023-01-06] MEDS: Normal Saline 1,000 ML 125 ML IV ×2 (05:17→13:57)
[2023-01-06 06:53] LABS: Abs Immature Grans 0.04 10^3/uL (0.0-0.06); Absolute Basophil Count 0.04 10^3/uL (0.0-0.2); Absolute Lymphocyte Count 0.72 10^3/uL (1.2-3.4); Absolute Monocyte Count 0.91 10^3/uL (0.1-0.8); Basophils % 0.3; Eosinophils % 0.2; HCT 38.9 % (40.0-50.0); HGB 13.2 g/dL (13.5-17.5); Immature Grans % 0.3; Lymphocytes % 5.9; MCH 31.5 pg (27.0-33.0); MCHC 33.9 % (32.0-36.0); MCV 93 fL (80-95); MPV 11.4 fL (8.0-11.0); Monocytes % 7.5; Neutrophils % 85.8; Platelet Count 196 10^3/uL (130-400); RBC 4.19 10^6/uL (4.36-5.78); RDW 13.2 % (11.8-14.1); RDW-SD 45.1 fL; WBC 12.15 10^3/uL (4.4-10.8)
[2023-01-06 07:04] LABS: BUN 57 mg/dL (7-18); CREATININE 2.3 mg/dL (0.70-1.30); Chloride 105 mmol/L (98-107); Estimated GFR 28.89 (mL/min/1.73m2); Glucose 99 mg/dL (74-106); Magnesium 2.1 mg/dL (1.8-2.4); Potassium 4.3 mmol/L (3.5-5.1); Sodium 137 mmol/L (136-145)
[2023-01-06 07:19] LABS: Absolute Eosinophil Count 0.02 10^3/uL (0.0-0.7); Absolute Neutrophil Count 10.42 10^3/uL (1.2-6.7)
[2023-01-06] MEDS: Enoxaparin 30 MG/0.3 ML SYR SC (08:57)
[2023-01-06] MEDS: dilTIAZem 60 MG TAB PO (08:58)
[2023-01-06] MEDS: Magnesium Oxide 400 MG TAB PO (08:58)
[2023-01-06] MEDS: OLANZapine 5 MG TAB PO (08:58)
[2023-01-06] MEDS: Cyanocobalamin 500 MCG TAB 1000 MCG PO (08:58)
[2023-01-06] MEDS: Ascorbic Acid 500 MG TAB PO (08:58)
[2023-01-06] MEDS: Aspirin 81 MG CHEW PO (08:58)
[2023-01-06] MEDS: Benztropine 1 MG TAB PO (08:58)
[2023-01-06] MEDS: Carbidopa 25/Levodopa 100 TAB PO ×2 (08:58→12:40)
[2023-01-06] MEDS: Folic Acid 1 MG TAB PO (08:59)
[2023-01-06] MEDS: Thiamine 100 MG TAB PO (08:59)
[2023-01-06] MEDS: Multivitamin w/Minerals TAB 1 TAB PO (09:51)
--- NOTE | 2023-01-06 11:56 | W.NUTCONSULT ---
Date of service: 01/06/23 Time of Service: 11:56 Nutritional Consult ASSESSMENT: Cesario was readmitted from SNF with UTI. At previous hospitalization last week had PEG placement as unable to meet nutrient needs by mouth with dysphagia. Discharge summary states may have pleasure feeding of puree diet with nectar thick liquids. Has stage 3 pressure wound on buttocks. Has lost 20 lbs in last 30 days = 10% weight loss Estimated Needs: (BEE x 1.2, 1.4 g pro/kg): 2400 kcal, 130 g pro, 2400 ml fluid At [facility] was received Nutren 2.0 5 boluses of 250 ml, flushed 250 ml q 4 hours providing a total of 2400 kcal, 105 g protein, 2350 ml fluid. Also, was receiving 2 oz liquid protein daily providing another 120 kcal, 30 g protein. Was kept NPO at [facility] NUTRITIONAL DIAGNOSIS: Inability to take adequate nutrients and fluid by mouth secondary dysphagia Increased nutrient needs for wound healing Moderate malnutrition as evidenced by 10% weight loss in last 30 days, INTERVENTION: Follow [employer]PERATOR recommendations for oral intake Nutren 2.0 50 cc/hour, flush 250 ml q 4 hours providing total of 2400 kcal, 101 g protein, 2350 ml fluid Liquid protein 1 oz BID MONITORING AND EVALUATION: labs, weight, wound healing. Time Spent in Nutritional Counseling and Treatment: 30
[2023-01-06] MEDS: dilTIAZem 60 MG TAB NG ×2 (13:58→19:59)
--- NOTE | 2023-01-06 16:32 | PDOC.CMIN ---
- If Service Date Differs Date of service: 01/06/23 Time of Service: 16:33 Care Management Initial Assess REASON FOR HOSPITALIZATION:: UTI, Sepsis, [place] PAST MEDICAL HISTORY/PAST SURGICAL HISTORY:: All Active Problems (Updated 01/05/23 @ 18:41 by Mallorie Estevez NP). Discharge planning issues (Acute). PEG (percutaneous endoscopic gastrostomy) status (Acute). Hyperkalemia (Acute). Acute UTI (Acute). [place] (acute kidney injury) (Acute). Sepsis (Acute). Palliative care patient (Acute). Oropharyngeal dysphagia (Acute). Mass of thyroid gland (Chronic). Folate deficiency (Acute). B12 deficiency (Acute). [place] (acute kidney injury) (Acute). Sacral decubitus ulcer (Acute). Indwelling Ribeiro catheter present (Chronic). Communication deficit (Chronic). Unable to walk (Chronic). Dysphagia (Acute). 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 Schizoaffective disorder (Acute). Sepsis (Acute). UTI (urinary tract infection) (Acute). Pneumonia (Acute). Medical History . Atrial fibrillation. BPH (benign prostatic hyperplasia). Chronic kidney disease. HTN (hypertension). Hx of hyperlipidemia. Parkinsons disease PREVIOUS FUNCTIONAL STATUS/SOCIAL/FAMILY SUPPORTS:: Cesario resides at [facility]. He has Parkinson's disease and communicates in writing with a pen and paper, as he is unable to communicate verbally. Cesario requires assistance with his ADLs and all of his care. ADVANCE DIRECTIVES:: On file; brother Dougie Moralez is appointed as Health Care Agent. Has patient been provided with info about the portal/API?: Yes Did the patient sign up for the portal?: No CODE STATUS:: DNR/DNI INSURANCE COVERAGE / FINANCIAL ISSUES:: Medicare and Medicaid. CURRENT HOME/COMMUNITY SERVICES/EQUIPMENT:: Cesario resides at [facility]. PRIMARY CARE PHYSICIAN:: Henrik Mukherjee POTENTIAL DISCHARGE NEEDS:: Follow up appointments, follow up with Palliative, transportation to [facility]. PATIENT/FAMILY EDUCATION NEEDS:: Review of discharge instructions including medications, limitations, follow up plan of care and Ask Me Three. TRANSPORTATION:: Via facility w/c van. PLAN:: Cesario will return to [facility] when medically cleared by provider. He will follow up with his PCP and plan of care as instructed. He will be transported via the facility's wheelchair van when ready. CM will continue to follow. Readmission - Within the Past 30 Days Yes or No: Y - Date of First Admission Date of 1st Admission: 12/10/22 - Date of this Admission Date of Admission: 01/05/23 This admission was: Through ED - Ask the Care Team Members: What do you think caused the patient to be readmitted: Patient has several commodities and is very susceptible to infections at baseline, he has Parkinson, a ribeiro catheter, he is non verbal and recently got a PEG tube for TPN nutrition. - ED visits How many ED visits in the past 12 months: 3 - Assessment for Readmission Summary of readmission circumstances, based upon interviews: Per Provider Note: 77-year-old male history of schizoaffective disorder, parkinsonism, presented to the [facility] ED with fever and tachycardia of unknown duration, from the [facility].? Patient largely nonverbal.? In the ED he was sitting staring forward rigid posture, tachycardic, sinus rhythm to the 120s, febrile 39.7 on arrival, appeared dry, diaphoretic, dark, cloudy brown urine in Ribeiro bag, likely urosepsis.? Muscles to consider viral syndrome versus pneumonia.? He was started on IV fluid hydration, started on diuretics, empiric antibiotics, blood cultures, urine culture pending. Labs in the ED showed evidence of [place], consider post-obstructive given initial appearance of urine now putting out clear urine, hyperkalemia likely related to [place].? Have placed order for calcium gluconate insulin and albuterol, EKG normal P waves and intervals.? Antibiotics have been infused fluids running. Patient admitted to medical floor, stable.
--- NOTE | 2023-01-06 17:32 | WOUNDCONS ---
- If Service Date Differs Date of service: 01/06/23 Time of Service: 15:00 Wound Initial Evaluation Narrative: Patient mitchel has been admitted here before. He is here this time for a UTI. He has a chronic Wilkerson, which was changed in the ED. He has a PMHX significant for A-Fib, [place], Parkinsonian symptoms. Patient is an aspiration risk, He has a PEG tube in place and is receiving a tube feed at the time of the consult. This paused as to allow the wound nurse to properly see and treat the wound. Patient is non-verbal, but is alert and nods yes to allow the consult to take place. His DPOA is present at the time of the consult. Previous wound consult as well as H&P and other pertinent information were reviewed prior to the consult. Body Four View: 1 - stage 3 - Wound Lumbar/Sacral Wound Type: Pressure Ulcer Pressure Ulcer Stage: III Wound General Appearance: Reddened, Draining, Bleeding, Unapproximated, Other (hypergranulation) Wound Bed Greatest Portion: Red (Granulation) Wound Bed Lesser Portion: Pale [place] Wound Surrounding Tissue Appearance: [place], Blanched/Dull Percent of Wound Bed Granulated/Red: 95 Wound Length: 9.8 cm Wound Width: 10.7 cm Wound Depth: 0.4 cm Wound Drainage Amount: Moderate Wound Drainage Odor: Strong Wound Drainage Description: Bloody Wound Topical Solution/Irrigant: Other (sterile water) Wound Debridement Method: Gauze Wound Debridement Result: Healthy Tissue Revealed Wound Debridement Amount of Tissue Removed: Moderate Additional Other Comments: do not use saline it neutralizes the silver The wound has worsened since it was consulted earlier in December. Staff and charge nurse were advised that the patient MUST be turned every 2 hours , and not allowed to rest on his back side. DPOA told this scribe that he is told by the patient's care faculity, that they cannot understand our wound directions. It is explained to the DPOA why he cannot remain on his back, and he is encouraged to mention and remind his caregivers of the importance of offloading pressure - Photo Photo: - Treatment/Dressing Change Cleanse With: Sterile Water Dressing Types: Mepilex (contact layer) Dressing Comment: Do not use Saline as this will neutralize the Silver - Nutrition Education Reviewed Nutrition Education: Yes Note: Patient recieves enteral feedings through his PEG tube - Recomendation Recomendation:: Sacral Ulcer Cleanse wound with Sterile water and gauze, then pat dry. Do not use saline as this will neutralize the Silver. Apply a thin layer of Silvadene to the wound bed, ensure full coverage to the area of Hypergranulation. Cover with a Mepilex sacral . Change Daily or PRN if soiled or dislodged Patient MUST be repositioned every 2 hours and not allowed to rest on his backside. Physcian/Nurse Practioner Notified: Yes (Mallorie Estevez NP) Treatment Time - Time Total Time Spent with Patient: 45 minutes
--- NOTE | 2023-01-06 19:42 | PGE_ITS ---
Date of Service Date of service: 01/06/23 Time of Service: 10:00 Assessment and Plan Assessment and plan (1) UTI (urinary tract infection): Status: Acute Assessment and plan: Chronic indwelling catheter - changed in ED Ceftriaxone Vancomycin discontinued Urine Cx pending IVF discontinued - has peg tube (2) Sepsis: Status: Resolved Assessment and plan: Stable - continue ceftriaxone; vancomycin discontinued Qualifiers: Sepsis type: sepsis due to unspecified organism Sepsis acute organ dysfunction status: with acute organ dysfunction Severe sepsis acute organ dysfunction type: acute renal failure Acute renal failure type: unspecified Severe sepsis shock status: without septic shock Qualified Code(s): A41.9 - Sepsis, unspecified organism; R65.20 - Severe sepsis without septic shock; N17.9 - Acute kidney failure, unspecified (3) [place] (acute kidney injury): Status: Acute Assessment and plan: Creatinine 2.3; BUN 57; improved; relieved obstruction; monitor (4) Sacral decubitus ulcer: Status: Acute Assessment and plan: Stage III sacral decubitus - wound care consult; follow recommendations (5) Atrial fibrillation: Assessment and plan: His A-fib seems to be paroxysmal. He remains on diltiazem 60 mg TID. Patient's not anticoagulated other than daily aspirin 81 mg daily; will add enoxaparin while hospitalized (6) Parkinsonism due to drugs: Status: Acute Assessment and plan: Dr. Claribel Solis has seen the patient last admission a couple of weeks ago and made recommendations and the timing of his entacapone as well as changes in the dosage of his Sinemet, will continue per her recommendations (7) Mass of thyroid gland: Status: Chronic Assessment and plan: Follow-up with outpatient dedicated thyroid ultrasound and if indicated referral for biopsy. (8) DVT prophylaxis: Status: Deleted Assessment and plan: Enoxaparin (9) Indwelling Wilkerson catheter present: Status: Chronic Assessment and plan: Changed in ED (10) Communication deficit: Status: Chronic (11) Unable to walk: Status: Chronic Assessment and plan: PT consult (12) Hyperkalemia: Status: Acute Assessment and plan: 4.3 - stable (13) PEG (percutaneous endoscopic gastrostomy) status: Status: Acute Assessment and plan: New since last admission; monitor - no s/s of infection; patent Meds and tube feedings (14) Discharge planning issues: Status: Acute Assessment and plan: Return to [facility] when stable discussed with Dr Gardner Subjective Subjective Patient reports: no new complaints, bowel movement and afebrile; denies diarrhea, vomiting or shortness of breath Interval history since last seen: Non verbal, awake, alert, tracks well Exam Narrative Exam Narrative: Physical Examination General: alert, awake, HEENT: normocephalic, atraumatic; PERRL, EOM intact, conjunctiva normal; no nasal discharge; drying of the oral mucosa Neck: supple, trachea midline; full ROM Chest: normal to inspection Respiratory: normal respiratory effort, speaking in full sentences, clear to auscultation, no wheezing, rales or rhonchi Cardiac: Tachycardia, regular rhythm, S1S2 intact, no murmurs rubs or gallops GI: abdomen soft, non-tender, non-distended; no palpable mass or hepatosplenomegaly : Wilkerson catheter in place, dark brown cloudy urine Skin: Diaphoretic; no lesions, rashes or trauma appreciated Neuro: Nonverbal, rigid posture, staring forward not moving arms and legs Objective Last Vital Signs Temp 37.4 C 01/06/23 15:45 Pulse 88 01/06/23 15:45 Resp 16 01/06/23 15:45 BP 106/65 01/06/23 15:45 Pulse Ox 95 01/06/23 15:45 Laboratory Results - last 24 hr 01/06/23 01/06/23 05:44 05:44 WBC 12.15 H RBC 4.19 L Hgb 13.2 L D Hct 38.9 L MCV 93 MCH 31.5 MCHC 33.9 RDW 13.2 Plt Count 196 MPV 11.4 H Immature Gran % 0.3 Neutrophils % 85.8 Lymphocytes % 5.9 Monocytes % 7.5 Eosinophils % 0.2 Basophils % 0.3 Nucleated RBC % 0.0 Absolute Neutrophils 10.42 H Absolute Lymphocytes 0.72 L Absolute Monocytes 0.91 H Absolute Eosinophils 0.02 Absolute Basophils 0.04 Sodium 137 Potassium 4.3 Chloride 105 Carbon Dioxide 20.0 L Anion Gap 12.0 H BUN 57 H Creatinine 2.3 H Est GFR (CKD-EPI 2020) 28.89 Glucose 99 Calcium 9.0 Magnesium 2.1 Time Spent with Patient Time Spent with Patient: 25-34 minutes Time was spent: preparing to see the patient(eg.review tests), ordering medi cations,tests, procedures, referring, communicating with other health respiratory care specialist, indepentently interpreting results, counseling the patient and care coordination
[2023-01-06] MEDS: VANCOMYCIN/WATER (PEG) 1 GM/200 ML BAG IVPB (20:01)
[2023-01-06] MEDS: Acetaminophen 325 MG TAB 650 MG PO (21:36)
[2023-01-07] MEDS: Normal Saline 1,000 ML 125 ML IV ×2 (00:33→09:52)
[2023-01-07 03:13] VITALS: BP 104/60; PULSE 89; RESP 19; TEMP 37.8; O2SAT 95
[2023-01-07 06:41] VITALS: BP 104/70; PULSE 98; RESP 22; TEMP 36.8; O2SAT 96
[2023-01-07 06:46] LABS: Abs Immature Grans 0.05 10^3/uL (0.0-0.06); Absolute Basophil Count 0.03 10^3/uL (0.0-0.2); Absolute Eosinophil Count 0.11 10^3/uL (0.0-0.7); Absolute Lymphocyte Count 0.51 10^3/uL (1.2-3.4); Absolute Monocyte Count 0.61 10^3/uL (0.1-0.8); Absolute Neutrophil Count 6.67 10^3/uL (1.2-6.7); Basophils % 0.4; Eosinophils % 1.4; HCT 33.2 % (40.0-50.0); HGB 11.1 g/dL (13.5-17.5); Immature Grans % 0.6; Lymphocytes % 6.4; MCH 31.5 pg (27.0-33.0); MCHC 33.4 % (32.0-36.0); MCV 94 fL (80-95); MPV 10.9 fL (8.0-11.0); Monocytes % 7.6; Neutrophils % 83.6; Platelet Count 180 10^3/uL (130-400); RBC 3.52 10^6/uL (4.36-5.78); RDW 13.4 % (11.8-14.1); RDW-SD 46.4 fL; WBC 7.98 10^3/uL (4.4-10.8)
[2023-01-07 07:00] LABS: Anion Gap 10.4 mmol/L (3-11); BUN 46 mg/dL (7-18); CO2 19.6 mmol/L (21.0-32.0); CREATININE 1.2 mg/dL (0.70-1.30); Calcium 8.3 mg/dL (8.5-10.1); Chloride 112 mmol/L (98-107); Estimated GFR 63.07 (mL/min/1.73m2); Glucose 146 mg/dL (74-106); Potassium 3.8 mmol/L (3.5-5.1); Sodium 142 mmol/L (136-145)
[2023-01-07] MEDS: Enoxaparin 30 MG/0.3 ML SYR SC (09:50)
[2023-01-07] MEDS: dilTIAZem 60 MG TAB NG ×3 (09:50→19:40)
[2023-01-07] MEDS: Zinc Sulfate 220 MG TAB NG (09:50)
[2023-01-07] MEDS: Thiamine 100 MG TAB NG (09:51)
[2023-01-07] MEDS: Aspirin 81 MG CHEW NG (09:51)
[2023-01-07] MEDS: Folic Acid 1 MG TAB NG (09:51)
[2023-01-07] MEDS: Cyanocobalamin 500 MCG TAB 1000 MCG NG (09:51)
[2023-01-07] MEDS: Benztropine 1 MG TAB NG (09:51)
[2023-01-07] MEDS: Magnesium Oxide 400 MG TAB NG (09:51)
[2023-01-07] MEDS: Ascorbic Acid 500 MG TAB NG (09:52)
[2023-01-07 11:30] VITALS: BP 104/69; PULSE 99; RESP 18; TEMP 37.2; O2SAT 98
[2023-01-07] MEDS: Silver sulfaDIAZINE 1% 25 GM TUBE TP (12:23)
[2023-01-07] MEDS: Normal Saline Flush 10 ML SYR (13:31)
[2023-01-07 13:56] LABS: Lab Add On Test DONE
--- NOTE | 2023-01-07 14:38 | PGE_ITS ---
Date of Service Date of service: 01/07/23 Time of Service: 14:38 Assessment and Plan Assessment and plan (1) UTI (urinary tract infection): Status: Acute Assessment and plan: Chronic indwelling catheter - changed in ED Meropenem IV q12h Urine & blood Cx both - proteus mirabilis IVF discontinued - has peg tube Procalcitonin 2.3 today (2) Sepsis: Status: Resolved Assessment and plan: Stable - Meropenem continued; will advance to oral abx when stable Qualifiers: Acute renal failure type: unspecified Sepsis acute organ dysfunction status: with acute organ dysfunction Sepsis type: sepsis due to unspecified organism Severe sepsis acute organ dysfunction type: acute renal failure Severe sepsis shock status: without septic shock Qualified Code(s): A41.9 - Sepsis, unspecified organism; R65.20 - Severe sepsis without septic shock; N17.9 - Acute kidney failure, unspecified (3) [place] (acute kidney injury): Status: Acute Assessment and plan: Creatinine 1.2; BUN 46; improved; relieved obstruction; monitor (4) Sacral decubitus ulcer: Status: Acute Assessment and plan: Stage III sacral decubitus - wound care consult; follow recommendations (5) Atrial fibrillation: Assessment and plan: His A-fib seems to be paroxysmal. He remains on diltiazem 60 mg TID. Patient's not anticoagulated other than daily aspirin 81 mg daily; will add enoxaparin while hospitalized (6) Parkinsonism due to drugs: Status: Acute Assessment and plan: Dr. Claribel Slois has seen the patient last admission a couple of weeks ago and made recommendations and the timing of his entacapone as well as changes in the dosage of his Sinemet, will continue per her recommendations (7) Mass of thyroid gland: Status: Chronic Assessment and plan: Follow-up with outpatient dedicated thyroid ultrasound and if indicated referral for biopsy. (8) DVT prophylaxis: Status: Deleted Assessment and plan: Enoxaparin (9) Indwelling Wilkerson catheter present: Status: Chronic Assessment and plan: Changed in ED (10) Communication deficit: Status: Chronic (11) Unable to walk: Status: Chronic Assessment and plan: PT consult (12) Hyperkalemia: Status: Acute Assessment and plan: 3.8 - stable (13) PEG (percutaneous endoscopic gastrostomy) status: Status: Acute Assessment and plan: New since last admission; monitor - no s/s of infection; patent Meds and tube feedings (14) DVT prophylaxis: Status: Acute Assessment and plan: Enoxaparin renal dose (15) Discharge planning issues: Status: Acute Assessment and plan: Return to [facility] when stable; change to oral abx discussed with Dr Gardner Subjective Subjective Patient reports: no new complaints Interval history since last seen: Sitting in chair, awake, alert, in no acute distress Exam Narrative Exam Narrative: Physical Examination General: alert, awake, HEENT: normocephalic, atraumatic; PERRL, EOM intact, conjunctiva normal; no nasal discharge; drying of the oral mucosa Neck: supple, trachea midline; full ROM Chest: normal to inspection Respiratory: normal respiratory effort, speaking in full sentences, clear to auscultation, no wheezing, rales or rhonchi Cardiac: Tachycardia, regular rhythm, S1S2 intact, no murmurs rubs or gallops GI: abdomen soft, non-tender, non-distended; no palpable mass or hepatosplenomegaly : Wilkerson catheter in place, dark brown cloudy urine Skin: Diaphoretic; no lesions, rashes or trauma appreciated Neuro: Nonverbal, rigid posture, staring forward not moving arms and legs Objective Last Vital Signs Temp 37.2 C 01/07/23 11:30 Pulse 99 H 01/07/23 11:30 Resp 18 01/07/23 11:30 BP 104/69 01/07/23 11:30 Pulse Ox 98 01/07/23 11:30 Laboratory Results - last 24 hr 01/07/23 01/07/23 01/07/23 06:10 06:10 06:10 WBC 7.98 RBC 3.52 L Hgb 11.1 L D Hct 33.2 L MCV 94 MCH 31.5 MCHC 33.4 RDW 13.4 Plt Count 180 MPV 10.9 Immature Gran % 0.6 Neutrophils % 83.6 Lymphocytes % 6.4 Monocytes % 7.6 Eosinophils % 1.4 Basophils % 0.4 Nucleated RBC % 0.0 Absolute Neutrophils 6.67 Absolute Lymphocytes 0.51 L Absolute Monocytes 0.61 Absolute Eosinophils 0.11 Absolute Basophils 0.03 Sodium 142 Potassium 3.8 Chloride 112 H Carbon Dioxide 19.6 L Anion Gap 10.4 BUN 46 H Creatinine 1.2 D Est GFR (CKD-EPI 2020) 63.07 Glucose 146 H Calcium 8.3 L Magnesium 2.0 Add-On Test Request DONE Time Spent with Patient Time Spent with Patient: 25-34 minutes Time was spent: preparing to see the patient(eg.review tests), ordering medications,tests, procedures, referring, communicating with other health respite care provider, indepentently interpreting results, counseling the patient and care coordination
[2023-01-07 14:40] LABS: Procalcitonin 2.3 ng/mL
[2023-01-07 15:55] VITALS: BP 100/66; PULSE 87; RESP 16; TEMP 36.1; O2SAT 95
[2023-01-07 19:25] VITALS: BP 131/75; PULSE 82; RESP 16; TEMP 37.7; O2SAT 98
[2023-01-07 23:06] VITALS: BP 112/70; PULSE 81; RESP 20; TEMP 37; O2SAT 96
[2023-01-08 03:02] VITALS: BP 135/78; PULSE 83; RESP 19; TEMP 37.5; O2SAT 95
[2023-01-08 06:57] LABS: Abs Immature Grans 0.05 10^3/uL (0.0-0.06); Absolute Basophil Count 0.03 10^3/uL (0.0-0.2); Absolute Eosinophil Count 0.12 10^3/uL (0.0-0.7); Absolute Lymphocyte Count 0.63 10^3/uL (1.2-3.4); Absolute Neutrophil Count 4.75 10^3/uL (1.2-6.7); Basophils % 0.5; Eosinophils % 1.9; HCT 34.1 % (40.0-50.0); HGB 11.5 g/dL (13.5-17.5); Immature Grans % 0.8; Lymphocytes % 10.2; MCH 31.6 pg (27.0-33.0); MCHC 33.7 % (32.0-36.0); MCV 94 fL (80-95); MPV 10.9 fL (8.0-11.0); Monocytes % 9.7; Neutrophils % 76.9; Platelet Count 202 10^3/uL (130-400); RBC 3.64 10^6/uL (4.36-5.78); RDW-SD 45.1 fL; WBC 6.18 10^3/uL (4.4-10.8)
[2023-01-08 07:18] LABS: BUN 29 mg/dL (7-18); CREATININE 0.9 mg/dL (0.70-1.30); Calcium 8.3 mg/dL (8.5-10.1); Chloride 111 mmol/L (98-107); Estimated GFR 89.07 (mL/min/1.73m2); Glucose 150 mg/dL (74-106); Potassium 3.5 mmol/L (3.5-5.1); Sodium 143 mmol/L (136-145)
[2023-01-08 08:14] VITALS: BP 119/79; PULSE 93; RESP 17; TEMP 37.7; O2SAT 95
[2023-01-08] MEDS: Enoxaparin 30 MG/0.3 ML SYR SC (10:08)
[2023-01-08] MEDS: Thiamine 100 MG TAB NG (10:10)
[2023-01-08] MEDS: Magnesium Oxide 400 MG TAB NG (10:10)
[2023-01-08] MEDS: Zinc Sulfate 220 MG TAB NG (10:10)
[2023-01-08] MEDS: Benztropine 1 MG TAB NG (10:10)
[2023-01-08] MEDS: Aspirin 81 MG CHEW NG (10:10)
[2023-01-08] MEDS: dilTIAZem 60 MG TAB NG ×3 (10:10→20:00)
[2023-01-08] MEDS: Cyanocobalamin 500 MCG TAB 1000 MCG NG (10:11)
[2023-01-08] MEDS: Ascorbic Acid 500 MG TAB NG (10:11)
[2023-01-08] MEDS: Folic Acid 1 MG TAB NG (10:11)
[2023-01-08] MEDS: Silver sulfaDIAZINE 1% 25 GM TUBE TP (10:11)
--- NOTE | 2023-01-08 16:13 | PGE_ITS ---
Date of Service Date of service: 01/08/23 Time of Service: 16:13 Assessment and Plan Assessment and plan (1) UTI (urinary tract infection): Status: Resolved Assessment and plan: Chronic indwelling catheter - changed in ED Meropenem IV q12h Urine & blood Cx both - proteus mirabilis IVF discontinued - has peg tube Procalcitonin will be repeated tomorrow (2) Sepsis: Status: Resolved Assessment and plan: Stable - Meropenem continued; will advance to oral abx when stable Qualifiers: Sepsis type: sepsis due to unspecified organism Sepsis acute organ dys function status: with acute organ dysfunction Severe sepsis acute organ dysfunction type: acute renal failure Acute renal failure type: unspecified Severe sepsis shock status: without septic shock Qualified Code(s): A41.9 - Sepsis, unspecified organism; R65.20 - Severe sepsis without septic shock; N17.9 - Acute kidney failure, unspecified (3) [place] (acute kidney injury): Status: Resolved Assessment and plan: Creatinine 0.8; BUN 29; improved; relieved obstruction; monitor (4) Sacral decubitus ulcer: Status: Acute Assessment and plan: Stage III sacral decubitus - wound care consult; follow recommendations (5) Atrial fibrillation: Assessment and plan: His A-fib seems to be paroxysmal. He remains on diltiazem 60 mg TID. Patient's not anticoagulated other than daily aspirin 81 mg daily; will add enoxaparin while hospitalized (6) Parkinsonism due to drugs: Assessment and plan: Dr. Claribel Soils has seen the patient last admission a couple of weeks ago and made recommendations and the timing of his entacapone as well as changes in the dosage of his Sinemet, will continue per her recommendations (7) Mass of thyroid gland: Assessment and plan: Follow-up with outpatient dedicated thyroid ultrasound and if indicated referral for biopsy. (8) DVT prophylaxis: Status: Deleted Assessment and plan: Enoxaparin (9) Indwelling Wilkerson catheter present: Status: Chronic Assessment and plan: Changed in ED (10) Communication deficit: (11) Unable to walk: Assessment and plan: PT consult (12) Hyperkalemia: Status: Resolved Assessment and plan: 3.5 - stable (13) PEG (percutaneous endoscopic gastrostomy) status: Status: Acute Assessment and plan: New since last admission; monitor - no s/s of infection; patent Meds and tube feedings (14) DVT prophylaxis: Status: Deleted Assessment and plan: Enoxaparin renal dose (15) Discharge planning issues: Status: Deleted Assessment and plan: Return to [facility] when stable; change to oral abx discussed with Dr Gardner Subjective Subjective Patient reports: no new complaints Exam Narrative Exam Narrative: Physical Examination General: alert, awake, HEENT: normocephalic, atraumatic; PERRL, EOM intact, conjunctiva normal; no nasal discharge; drying of the oral mucosa Neck: supple, trachea midline; full ROM Chest: normal to inspection Respiratory: normal respiratory effort, speaking in full sentences, clear to auscultation, no wheezing, rales or rhonchi Cardiac: Tachycardia, regular rhythm, S1S2 intact, no murmurs rubs or gallops GI: abdomen soft, non-tender, non-distended; no palpable mass or hepato splenomegaly : Wilkerson catheter in place, dark brown cloudy urine Skin: Diaphoretic; no rashes or trauma; large pressure injury to LS spine covered with dry sterile dressing. Neuro: Nonverbal, rigid posture, staring forward not moving arms and legs Psych Mental Status: other Speech and Movement: slowed movement Mood: labile mood and other Affect: labile affect Objective Last Vital Signs Temp 37.7 C H 01/08/23 08:14 Pulse 93 H 01/08/23 08:14 Resp 17 01/08/23 08:14 BP 119/79 01/08/23 08:14 Pulse Ox 95 01/08/23 08:14 Laboratory Results - last 24 hr 01/08/23 01/08/23 06:00 06:00 WBC 6.18 RBC 3.64 L Hgb 11.5 L Hct 34.1 L MCV 94 MCH 31.6 MCHC 33.7 RDW 13.0 Plt Count 202 MPV 10.9 Immature Gran % 0.8 Neutrophils % 76.9 Lymphocytes % 10.2 Monocytes % 9.7 Eosinophils % 1.9 Basophils % 0.5 Nucleated RBC % 0.0 Absolute Neutrophils 4.75 Absolute Lymphocytes 0.63 L Absolute Monocytes 0.60 Absolute Eosinophils 0.12 Absolute Basophils 0.03 Sodium 143 Potassium 3.5 Chloride 111 H Carbon Dioxide 22.0 Anion Gap 10.0 BUN 29 H Creatinine 0.9 Est GFR (CKD-EPI 2020) 89.07 Glucose 150 H Calcium 8.3 L Magnesium 2.0 Time Spent with Patient Time Spent with Patient: 25-34 minutes Time was spent: preparing to see the patient(eg.review tests), ordering medications,tests, procedures, referring, communicating with other health point of care technician, indepentently interpreting results, counseling the patient and care coordination
[2023-01-08 16:52] VITALS: BP 106/71; PULSE 90; RESP 16; TEMP 36.9; O2SAT 98
[2023-01-08 19:55] VITALS: BP 109/77; PULSE 86; RESP 18; TEMP 37.2; O2SAT 96
[2023-01-09 00:39] VITALS: BP 112/75; PULSE 85; RESP 16; TEMP 36.7; O2SAT 95
[2023-01-09 03:45] VITALS: BP 105/68; PULSE 88; RESP 18; TEMP 36.7; O2SAT 96
[2023-01-09 06:14] LABS: Abs Immature Grans 0.08 10^3/uL (0.0-0.06); Absolute Basophil Count 0.06 10^3/uL (0.0-0.2); Absolute Eosinophil Count 0.24 10^3/uL (0.0-0.7); Absolute Lymphocyte Count 0.89 10^3/uL (1.2-3.4); Absolute Monocyte Count 0.85 10^3/uL (0.1-0.8); Absolute Neutrophil Count 4.63 10^3/uL (1.2-6.7); Basophils % 0.9; Eosinophils % 3.6; HCT 34.3 % (40.0-50.0); HGB 11.3 g/dL (13.5-17.5); Immature Grans % 1.2; Lymphocytes % 13.2; MCH 31.3 pg (27.0-33.0); MCHC 32.9 % (32.0-36.0); MCV 95 fL (80-95); MPV 10.6 fL (8.0-11.0); Monocytes % 12.6; Neutrophils % 68.5; Platelet Count 220 10^3/uL (130-400); RBC 3.61 10^6/uL (4.36-5.78); RDW 13.1 % (11.8-14.1); RDW-SD 46.3 fL; WBC 6.75 10^3/uL (4.4-10.8)
[2023-01-09 06:52] LABS: Anion Gap 8.6 mmol/L (3-11); BUN 25 mg/dL (7-18); CO2 24.4 mmol/L (21.0-32.0); CREATININE 0.8 mg/dL (0.70-1.30); Calcium 8.4 mg/dL (8.5-10.1); Chloride 111 mmol/L (98-107); Estimated GFR 92.29 (mL/min/1.73m2); Glucose 124 mg/dL (74-106); Potassium 3.6 mmol/L (3.5-5.1); Sodium 144 mmol/L (136-145)
[2023-01-09 07:10] VITALS: BP 125/78; PULSE 89; RESP 16; TEMP 36.3; O2SAT 95
[2023-01-09] MEDS: Enoxaparin 30 MG/0.3 ML SYR SC (10:03)
[2023-01-09] MEDS: dilTIAZem 60 MG TAB NG ×2 (10:04→14:40)
[2023-01-09] MEDS: Cyanocobalamin 500 MCG TAB 1000 MCG NG (10:04)
[2023-01-09] MEDS: Benztropine 1 MG TAB NG (10:04)
[2023-01-09] MEDS: Thiamine 100 MG TAB NG (10:04)
[2023-01-09] MEDS: Magnesium Oxide 400 MG TAB NG (10:04)
[2023-01-09] MEDS: Ascorbic Acid 500 MG TAB NG (10:04)
[2023-01-09] MEDS: Folic Acid 1 MG TAB NG (10:05)
[2023-01-09] MEDS: Silver sulfaDIAZINE 1% 25 GM TUBE TP (10:05)
[2023-01-09] MEDS: Zinc Sulfate 220 MG TAB NG (10:05)
[2023-01-09] MEDS: Aspirin 81 MG CHEW NG (10:05)
[2023-01-09 11:09] LABS: Source Nasal/Nares
--- NOTE | 2023-01-09 11:22 | PDOC.CMDIS ---
- If Service Date Differs Date of service: 01/09/23 Time of Service: 11:22 LACE Index Scoring Tool - Questions: Length of Stay (in days): 4 - 6 Acuity (Admit via E.D.?): Yes Comorbidities: Liver or Renal Disease E.D. Visits: 3 - Answers: Total Score: 15 Risk of Readmission: High Risk Care Management Discharge Reason for Hospitalization: UTI, Sepsis, [place] Discharge Plan: Cesario is discharged back to [facility] via EMS. He will follow up with community providers and discharge plan of care as prescribed. Patient/Family Education Needs: Review discharge instructions, limitations and plan to follow up with facility/community providers. Discuss ask me three. Services Needed at Discharge: Halfway Facility (Discharge back to [facility]), Transportation (EMS/[facility] 5pm, coordinated by CM)
[2023-01-09 11:49] LABS: COVID-19 PCR Negative (Negative)
--- NOTE | 2023-01-09 14:49 | W.PM.DS.N ---
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 (8) DVT prophylaxis: Status: Deleted (9) Indwelling Wilkerson catheter present: Status: Chronic (10) Communication deficit: Status: Chronic (11) Unable to walk: Status: Chronic (12) Hyperkalemia: Status: Acute (13) PEG (percutaneous endoscopic gastrostomy) status: Status: Acute (14) Discharge planning issues: Status: Acute Discharge Plan Disposition Patient Disposition: Long-Term Facility(SNF) Condition: Deteriorating Discharge Details Reason For Visit: Sepsis, UTI, [place] Admit Date/Time: 01/05/23 14:32 Admit Provider: Dann Rey Attending Provider: Dann Rey Primary Care Provider: Henrik Mukherjee Hospital Course Hospital Course: This is a 77-year-old male patient with a past medical history of schizoaffective disorder, parkinsonism, who presented to the [facility] ED on 01/05/2023, from the [facility] with fever and tachycardia of unknown duration. Patient largely nonverbal.? In the ED he was sitting staring forward rigid posture, tachycardic, sinus rhythm to the 120s, febrile 39.7 on arrival, appeared dry, diaphoretic, dark, cloudy brown urine in Wilkerson bag, diagnosed with urosepsis.? He was started on IV fluid hydration, started on diuretics, empiric antibiotics, blood cultures, urine culture. Labs in the ED showed evidence of [place], post-obstructive given initial appearance of urine, hyperkalemia likely related to [place].? He received calcium gluconate, insulin and albuterol in the ED. EKG normal P waves and intervals.? He was admitted to the medical floor for further assessment and treatment. His urine and blood cultures grew Proteus mirabilis.? He was started on Meropenem.? Today is day 4 of Meropenem.? He has not had a fever since 01/07/2023.? SBP 110-120s, heart rate in the 80s. Electrolytes have normalized. Glucose has been 120-160s.? Potassium today is 3.6. ?He has a pressure injury to his LS spine that is noted as worse than last visit here that was 2 weeks ago.? Wound is 10 x 4 cm, with surrounding erythema.? It has slough, no granulating tissue, described as macerated, and quite deep with some necrotic tissue.? A wound consult was completed and the recommendation is to treat with Silvadene dressings with foam island dressing. Frequent turning and toileting is recommended to decrease the potential of wound worsening.? Increased nutritional protein should be considered. ?He is at his baseline and is being discharged back to the [facility], stable with the continuation of antibiotics to complete a 14 day course, he has had 4 days here. Discussed with Dr Gardner. Home Meds and New Rx's Prescriptions: New magnesium oxide 400 mg (241.3 mg magnesium) Tablet 400 mg NG DAILY Qty: 0 0RF silver sulfadiazine [Silvadene] 1 % Cream 25 g topical DAILY Qty: 0 0RF carbidopa-levodopa 25-250 mg Tablet 1 tab feeding tube QID@0700,1100,1600,2000 Qty: 30 0RF entacapone 200 mg Tablet 200 mg NG QID@0700,1100,1600,2000 Qty: 30 0RF cefdinir 250 mg/5 mL suspension for reconstitution 300 mg PO BID Qty: 100 0RF Continued polyethylene glycol 3350 [Miralax] 17 gram/dose powder 17 gm PO DAILY PRN PRN magnesium hydroxide [Milk of Magnesia] 400 mg/5 mL Suspension 30 ml PO BID PRN PRN acetaminophen 325 mg Tablet 650 mg PO 6XD PRN (Reason: Fever) aspirin 81 mg Tablet,Chewable 81 mg PO DAILY cyanocobalamin (vitamin B-12) [Vitamin B-12] 500 mcg Tablet 1,000 mcg PO DAILY Qty: 0 0RF folic acid 1 mg Tablet 1 mg PO DAILY Qty: 0 0RF One Daily Multi-Vit w-Mineral 4.5 mg iron Tablet 1 tab PO DAILY@1000 Qty: 0 0RF zinc sulfate [Zinc-220] 50 mg zinc (220 mg) Capsule 220 mg PO DAILY Qty: 12 0RF ascorbic acid (vitamin C) [Vitamin C] 500 mg tablet 500 mg PO DAILY thiamine mononitrate (vit B1) [Vitamin B-1 (mononitrate)] 100 mg Tablet 100 mg PO DAILY Qty: 0 0RF diltiazem HCl [Cardizem] 60 mg Tablet 60 mg PO TID Qty: 0 0RF scopolamine base 1 mg over 3 days Patch 3 Day 1 mg transdermal Q72H magnesium oxide 400 mg magnesium Tablet 400 mg PO DAILY amantadine HCl 50 mg/5 mL solution 100 mg PO TID Qty: 0 0RF Changed benztropine 1 mg tablet 1 mg feeding tube DAILY Qty: 0 0RF Discontinued entacapone [Comtan] 200 mg tablet 200 mg PO TID carbidopa-levodopa 25-100 mg tablet 2 tab PO QID Discharge Instructions Instructions: Urinary Tract Infection in Men (DC), Hyperkalemia (DC) Stand Alone Forms: Nursing Discharge Form Referrals: [facility] [REPORT RECIPIENT] - (Follow up per [facility] Re[facility]) Activity:: Activity as Tolerated Equipment/Supplies:: No Equipment Needed Diet:: per dietary; tube feed Discharge Orders Discharge Orders: Discharge Order (Routine); Ordered 01/09/23 Ordered By: Mallorie Estevez DS: Summary Time Spent with Patient providing and/or coordinating discharge services: Greater than 30 minutes Status at Discharge Functional status at discharge: bed bound Overall status at discharge: patient is not back to baseline Mental Status: other Speech and Movement: slowed movement Mood: labile mood and other Affect: labile affect Exam Narrative Exam Narrative: Physical Examination General: alert, awake, HEENT: normocephalic, atraumatic; PERRL, EOM intact, conjunctiva normal; no nasal discharge; drying of the oral mucosa Neck: supple, trachea midline; full ROM Chest: normal to inspection Respiratory: normal respiratory effort, speaking in full sentences, clear to auscultation, no wheezing, rales or rhonchi Cardiac: Tachycardia, regular rhythm, S1S2 intact, no murmurs rubs or gallops GI: abdomen soft, non-tender, non-distended; no palpable mass or hepatosplenomegaly : Wilkerson catheter in place, dark brown cloudy urine Skin: Diaphoretic; no rashes or trauma; large pressure injury to LS spine covered with dry sterile dressing. Neuro: Nonverbal, rigid posture, staring forward not moving arms and legs Psych Mental Status: other Speech and Movement: slowed movement Mood: labile mood and other Affect: labile affect DS: Data Vitals/I&O Vitals and I&O: Vital Signs Temperature 36.3 C L 01/09/23 07:10 Temperature Source Tympanic 01/09/23 07:10 Pulse 89 01/09/23 07:10 Pulse Rhythm Regular 01/09/23 08:15 Pulse 110 H 01/05/23 15:36 Respiratory Rate 16 01/09/23 07:10 Respiratory Effort Normal, Non-Labored 01/09/23 08:15 Respiratory Depth Normal 01/09/23 08:15 Respiratory Pattern Normal 01/09/23 08:15 Blood Pressure 125/78 01/09/23 07:10 Blood Pressure Mean 77 01/05/23 15:36 Pulse Oximetry 95 01/09/23 07:10 Oxygen Delivery Method Room Air 01/09/23 07:10 Oxygen Flow Rate 0 01/09/23 07:10 Pain Level 0 01/08/23 16:52 Comment Informed RN Nida of VS 01/06/23 22:55 Intake & Output 01/08/23 01/09/23 01/09/23 23:59 11:59 23:59 Intake Total 550 / 600 50 / 50 Output Total 800 / 1450 1000 / 1550 550 / 1550 Balance -250 / -850 -1000 / -1500 -500 / -1500 Intake: IV 150 / 200 50 / 50 Intake, Tube Feeding Amount 400 / 400 Output: Urine 800 / 1450 1000 / 1550 550 / 1550 Other: Urine Color Light Jacqui Oreilly Yellow Urine Appearance Cloudy Clear Cloudy Sediment Data Completed and Pending Labs on day of discharge: Labs from last 24 hours 01/09/23 01/09/23 01/09/23 Unknown 11:00 05:47 WBC 6.75 RBC 3.61 L Hgb 11.3 L Hct 34.3 L MCV 95 MCH 31.3 MCHC 32.9 RDW 13.1 Plt Count 220 MPV 10.6 Immature Gran % 1.2 Neutrophils % 68.5 Lymphocytes % 13.2 Monocytes % 12.6 Eosinophils % 3.6 Basophils % 0.9 Nucleated RBC % 0.0 Absolute Neutrophils 4.63 Absolute Lymphocytes 0.89 L Absolute Monocytes 0.85 H Absolute Eosinophils 0.24 Absolute Basophils 0.06 Sodium Potassium Chloride Carbon Dioxide Anion Gap BUN Creatinine Est GFR (CKD-EPI 2020) Glucose Calcium Magnesium COVID-19 Source Nasal/Nares SARS-CoV-2 (PCR) Negative Add-On Test Request Pending 01/09/23 05:47 WBC RBC Hgb Hct MCV MCH MCHC RDW Plt Count MPV Immature Gran % Neutrophils % Lymphocytes % Monocytes % Eosinophils % Basophils % Nucleated RBC % Absolute Neutrophils Absolute Lymphocytes Absolute Monocytes Absolute Eosinophils Absolute Basophils Sodium 144 Potassium 3.6 Chloride 111 H Carbon Dioxide 24.4 Anion Gap 8.6 BUN 25 H Creatinine 0.8 Est GFR (CKD-EPI 2020) 92.29 Glucose 124 H Calcium 8.4 L Magnesium 2.0 COVID-19 Source SARS-CoV-2 (PCR) Add-On Test Request PFSH All Active Problems (Updated 01/08/23 @ 17:35 by Mallorie Estevez NP) DVT prophylaxis (Acute) Discharge planning issues (Acute) PEG (percutaneous endoscopic gastrostomy) status (Acute) Hyperkalemia (Acute) Acute UTI (Acute) [place] (acute kidney injury) (Acute) Sepsis (Acute) Palliative care patient (Acute) Oropharyngeal dysphagia (Acute) Mass of thyroid gland (Chronic) Folate deficiency (Acute) B12 deficiency (Acute) [place] (acute kidney injury) (Acute) Sacral decubitus ulcer (Acute) Indwelling Wilkerson catheter present (Chronic) Communication deficit (Chronic) Unable to walk (Chronic) Dysphagia (Acute) 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) Schizoaffective disorder (Acute) UTI (urinary tract infection) (Acute) Pneumonia (Acute) Medical History Atrial fibrillation BPH (benign prostatic hyperplasia) Chronic kidney disease HTN (hypertension) Hx of hyperlipidemia Parkinsons disease Social History Smoking/Tobacco Use Status: Never Smoking risk assessment performed?: Yes Alcohol Intake: never Substance use type: does not use Time Spent with Patient Time Spent with Patient: 45-69 minutes Time was spent: preparing to see the patient(eg.review tests), ordering medications,tests, procedures, referring, communicating with other health wild animal caretaker, indepentently interpreting results, counseling the patient and care coordination
[2023-01-09 15:54] LABS: Procalcitonin 0.4 ng/mL
[2023-01-09 17:20] LABS: Lab Add On Test DONE
== END 2023-01-09 16:50 | disposition skilled nursing facility (03) | DRG 871 ==
LOC: ER 14:52 → MS 15:52
PROVIDERS: Nurse Practitioner Family; Admitting Provider Internal Medicine; Emergency Provider Emergency Medicine; PCP Family Medicine; Visit Provider Internal Medicine
DX: A41.9 Sepsis, unspecified organism (principal); L89.153 Pressure ulcer of sacral region, stage 3; N39.0 Urinary tract infection, site not specified; N17.9 Acute kidney failure, unspecified; G21.19 Other drug induced secondary parkinsonism; R65.20 Severe sepsis without septic shock; I48.91 Unspecified atrial fibrillation; E07.89 Other specified disorders of thyroid; R26.2 Difficulty in walking, not elsewhere classified; E87.5 Hyperkalemia; Z93.1 Gastrostomy status; F25.9 Schizoaffective disorder, unspecified; R13.12 Dysphagia, oropharyngeal phase; E53.8 Deficiency of other specified B group vitamins; F80.89 Other developmental disorders of speech and language; E78.5 Hyperlipidemia, unspecified; N18.9 Chronic kidney disease, unspecified; I12.9 Hypertensive chronic kidney disease with stage 1 through stage 4 chronic kidney disease, or unspecified chronic kidney disease; B96.4 Proteus (mirabilis) (morganii) as the cause of diseases classified elsewhere
CPT/HCPCS: 36415; 36416; 76770; 80048; 80053; 82962; 84145; 87040; 87077; 87081; 87635; 87637; 93005; 94640; 96365; 96368; 96374; 99285; 71045; 81003; 81015; 83605; 83735; 85025; 87086; 87186; 93010; 99222; 99232; 99239; J0696; J1650; J3490; J7613

== ENCOUNTER 2023-01-16 15:13 | Outpatient (REF) | payer MEDICARE, MEDICAID, SELFPAY ==
[2023-01-16 13:08] LABS: Bilirubin Negative (Negative); Blood Trace-intact (Negative); Clarity Clear (Clear); Glucose Negative (Negative); Ketones Negative (Negative); Leukocyte Esterase Small (Negative); Nitrite Negative (Negative); Urobilinogen 0.2 mg/dL (Up to 0.2)
[2023-01-16 13:15] LABS: Bacteria Few HPF (Negative); C & S Indicated? C&S Done As Ordered; Casts Negative LPF (Negative); Crystals Negative HPF (Negative); Epithelial Cells Rare HPF (Negative); Mucus Trace (Negative)
== END 2023-01-16 15:14 | disposition home or self-care (01) ==
LOC: LBN 15:13
PROVIDERS: PCP Family Medicine; Visit Provider Family Medicine
DX: N39.0 Urinary tract infection, site not specified (principal)
CPT/HCPCS: 81003; 81015; 87086

== ENCOUNTER 2023-01-26 14:05 | Outpatient (REF) | payer MEDICARE, MEDICAID, SELFPAY ==
[2023-01-26 15:57] LABS: HCT 35.7 % (40.0-50.0); HGB 12.1 g/dL (13.5-17.5); MCH 31.6 pg (27.0-33.0); MCHC 33.9 % (32.0-36.0); MCV 93 fL (80-95); MPV 10.5 fL (8.0-11.0); Platelet Count 258 10^3/uL (130-400); RBC 3.83 10^6/uL (4.36-5.78); RDW 13.4 % (11.8-14.1); RDW-SD 45.5 fL; WBC 5.31 10^3/uL (4.4-10.8)
[2023-01-26 16:11] LABS: ALT 13 U/L (16-63); AST 13 U/L (15-37); Albumin 3.1 g/dL (3.4-5.0); Alkaline Phosphatase 122 U/L (46-116); Anion Gap 8.8 mmol/L (3-11); BUN 26 mg/dL (7-18); Bilirubin Negative (Negative); Bilirubin, Total 0.5 mg/dL (0.2-1.0); Blood Small (Negative); CO2 26.2 mmol/L (21.0-32.0); CREATININE 0.8 mg/dL (0.70-1.30); Chloride 103 mmol/L (98-107); Clarity Cloudy (Clear); Estimated GFR 92.29 (mL/min/1.73m2); Glucose 143 mg/dL (74-106); Glucose Negative (Negative); Ketones Trace mg/dL (Negative); Leukocyte Esterase Large (Negative); Nitrite Positive (Negative); Potassium 3.8 mmol/L (3.5-5.1); Sodium 138 mmol/L (136-145); Total Protein 6.9 g/dL (6.4-8.2); Urobilinogen 0.2 mg/dL (Up to 0.2); pH >= 9.0 (5-8)
[2023-01-26 16:18] LABS: Bacteria Many HPF (Negative); C & S Indicated? Yes; Casts 0-2 Hyaline LPF (Negative); Crystals Many Triple Phos HPF (Negative); Epithelial Cells Few HPF (Negative); Mucus Moderate (Negative); WBC >50 HPF (0-5)
== END 2023-01-26 14:06 | disposition home or self-care (01) ==
LOC: LBN 14:05
PROVIDERS: PCP Family Medicine; Visit Provider Physician Assistant
DX: N39.0 Urinary tract infection, site not specified (principal)
CPT/HCPCS: 80053; 85027; 87077; 81003; 81015; 87086; 87186

== ENCOUNTER 2023-02-05 05:07 | Emergency (ER) | payer MEDICARE, MEDICAID, SELFPAY ==
--- NOTE | 2023-02-05 05:00 | DI.CT_ITS ---
Exam(s) CT ABDOMEN PELVIS WO EXAM: CT ABDOMEN PELVIS WO CLINICAL HISTORY: urinary retention, eval missplaced ribeiro or obstru. TECHNIQUE: Imaging Protocol: Axial computed tomography images with coronal and sagittal reformatted images were created and reviewed. Oral: no COMPARISON: CT CT CHEST/ABD/PEL W from 12/10/2022 FINDINGS: Exam limited by patient motion ABDOMEN: Lung Bases: Respiratory motion. Atelectasis right lower lobe. Severe coronary artery calcifications . Liver: Normal density. No measurable mass. Gallbladder and biliary tract: Cholelithiasis. No gallbladder wall thickening. No biliary dilation. Pancreas: Normal density, no abnormal calcifications or inflammatory process. Spleen: Normal. Kidneys: Normal size, contour and axis. Bilateral hydronephrosis, mild, right greater than left. Sm all stones seen in the distal right ureter. High attenuation material seen within right renal pelvis could represent hemorrhage. No abnormality was identified on the prior exam.. Small bilateral cyst s. No suspicious masses seen. Adrenal glands: No masses seen. Lymph nodes: Within normal limits. Abdominal Aorta: Abdominal portion non-dilated. PELVIS: Bladder: Markedly distended. Multiple stones seen in the dependent portion. Calculi appear smaller w hen compared with the previous exam. Ribeiro catheter balloon seen inflated in the posterior penile ur ethra. Bowel: Percutaneous gastrostomy tube. Large quantity of stool seen throughout the colon, greatest in the rectum. Rectum is distended to 8.5 cm.. No obstruction or bowel wall thickening. Peritoneal cavity: No ascites, collection or mesenteric inflammatory response. Reproductive organs: Prostate markedly enlarged. Bones: Degenerative changes. No acute findings. Soft tissues: Small bilateral fatty containing inguinal hernias. IMPRESSION: Ribeiro catheter balloon 5 inflated in posterior penile urethra. Marked urinary bladder distention. B ladder calculi are again noted. Marked prostate enlargement. Bilateral hydronephrosis, right greate r than left. Small stones seen in the distal right ureter. Some high density material seen in right renal pelvis which could represent hemorrhage. Large quantity of stool throughout the colon, with significant rectal distension. RADIATION DOSE DELIVERED: 1,302.26mGy.cm Total DLP DATA REPOSITORY: All CT scans at this facility are submitted to the National Radiology Data Registry (NRDR) Dose Index Registry (DIR) with the [employer] ([employer]). RADIATION OPTIMIZATION: All CT scans at this facility use at least one of these dose optimization te chniques: automated exposure control; mA and/or kV adjustment per patient size (includes targeted exa ms where dose is matched to clinical indication); or iterative reconstruction.
[2023-02-05 05:10] VITALS: BP 136/73; PULSE 106; RESP 20; TEMP 36.7; O2SAT 96
--- NOTE | 2023-02-05 05:14 | ED.GENADUL_ITS ---
Discharge Plan Disposition Patient Disposition: Care Home Facility(SNF) Condition: Good Discharge Details Clinical Impression: Complication of Wilkerson catheter Primary Care Provider: Henrik Mukherjee ED Provider: Nemesio Carmona Home Meds and New Rx's Prescriptions: No Action polyethylene glycol 3350 [Miralax] 17 gram/dose powder 17 gm PO DAILY PRN PRN magnesium hydroxide [Milk of Magnesia] 400 mg/5 mL Suspension 30 ml PO BID PRN PRN acetaminophen 325 mg Tablet 650 mg PO 6XD PRN (Reason: Fever) aspirin 81 mg Tablet,Chewable 81 mg PO DAILY cyanocobalamin (vitamin B-12) [Vitamin B-12] 500 mcg Tablet 1,000 mcg PO DAILY Qty: 0 0RF folic acid 1 mg Tablet 1 mg PO DAILY Qty: 0 0RF One Daily Multi-Vit w-Mineral 4.5 mg iron Tablet 1 tab PO DAILY@1000 Qty: 0 0RF zinc sulfate [Zinc-220] 50 mg zinc (220 mg) Capsule 220 mg PO DAILY Qty: 12 0RF ascorbic acid (vitamin C) [Vitamin C] 500 mg tablet 500 mg PO DAILY thiamine mononitrate (vit B1) [Vitamin B-1 (mononitrate)] 100 mg Tablet 100 mg PO DAILY Qty: 0 0RF diltiazem HCl [Cardizem] 60 mg Tablet 60 mg PO TID Qty: 0 0RF scopolamine base 1 mg over 3 days Patch 3 Day 1 mg transdermal Q72H magnesium oxide 400 mg magnesium Tablet 400 mg PO DAILY magnesium oxide 400 mg (241.3 mg magnesium) Tablet 400 mg NG DAILY Qty: 0 0RF silver sulfadiazine [Silvadene] 1 % Cream 25 g topical DAILY Qty: 0 0RF carbidopa-levodopa 25-250 mg Tablet 1 tab feeding tube QID@0700,1100,1600,2000 Qty: 30 0RF entacapone 200 mg Tablet 200 mg NG QID@0700,1100,1600,2000 Qty: 30 0RF amantadine HCl 50 mg/5 mL solution 100 mg PO TID Qty: 0 0RF benztropine 1 mg tablet 1 mg feeding tube DAILY Qty: 0 0RF Discharge Instructions Additional Instructions: The Wilkerson catheter has been repositioned, and is now located in the bladder. Please monitor your symptoms closely for any continued bleeding or pain. Please follow-up with urology on an outpatient basis for reassessment. If you notice any worsening of your symptoms, or any new symptoms such as vomiting, diarrhea, fever, chills, shortness of breath, chest pain, numbness, weakness, or fainting , please return immediately to the emergency department for reevaluation. Please follow up with your primary care provider as soon as possible for reassessment and reevaluation. As always, it was a pleasure participating in your medical care today. Referrals: Henrik Mukherjee [Primary Care Provider] - Rashad Geiger MD [ [facility] STAFF PHYSICIAN] - Medical Decision Making This is a 77-year-old male who is DNR/DNI, palliative care patient, with chronic indwelling Wilkerson catheter, baseline schizoaffective disorder who is nonverbal at baseline, who resides at [facility], who presents today for evaluation of urinary retention. Health and rehab state that the patient has had no urinary output for the last 12 hours, new Wilkerson catheter was placed at 7 PM out of concern that the old one may have been clogged. There has been no output since the new one was placed aside for small amount of blood. Patient is nonverbal and has no complaints. Patient was sent for further evaluation. No other historical components. Exam demonstrates distended palpable bladder, greater than 1000 cc of urine noted on bladder scan. Wilkerson catheter has some blood around the meatus and evidence of some blood in the Wilkerson catheter 2. Suspect obstruction. Concern for potential misplacement of Wilkerson catheter versus clogged catheter which is less likely since this is a newly replaced catheter. We will get a CT scan to evaluate for anatomic disruption, treat the patient's pain, and reassess after imaging. 5:50 AM Preliminary review of CT scan was performed by myself, and Wilkerson catheter appears to be unfortunately inflated either just proximal to the prostate or in the prostate itself. Upon review of this we did immediately go and deflate the Wilkerson catheter, we were able to advance it without any difficulty or resistance forward. Wilkerson catheter balloon was then reinflated, and notable and significant amount of urine was immediately procured. Patient began draining into the Wilkerson bag without any blood or difficulty. Diagnosis is highest of concern for accidental misplaced Wilkerson catheter. We will wait on formal reading and return of labs, monitor closely and reassess. 7:[address] read confirms suspicions of misplacement of Wilkerson catheter. Patient has been doing very well with the replace Wilkerson catheter. We did attempt to contact Dr. Mukherjee to convey the report, however unfortunately no callback was ever received. Report was given to nursing staff at the rehab. Patient remained stable. Patient will be discharged back to health and rehab. Recommend close follow-up with urology. I have extensively reviewed the treatment plan and discharge instructions with the patient. I have addressed all patient concerns at this time. The patient was made aware of what symptoms to monitor for that would warrant a return to the emergency department. Discussed the plan with the patient, they demonstrate verbal understanding and agreement with our assessment and plan at this time. The documentation in this chart was dictated using [employer] dictation software. Please excuse any dictation errors. FINDINGS: Limitations: Images are degraded due to artifact caused by patient motion and arm positioning. No contrast was administered, limiting evaluation for some pathologies. Lungs: Atelectasis at the lung bases. Coronary arteries: Coronary artery calcifications. Liver: No focal hepatic lesion identified, within the limitations of a noncontrast examination. Gallbladder and bile ducts: Cholelithiasis. Pancreas: No CT evidence for acute pancreatitis. Spleen: No splenomegaly. Adrenal glands: No mass. Kidneys and ureters: Bilateral renal cysts. Additional lesion in the left kidney, statistically likely to represent a cyst but indeterminate on this examination. Cannot exclude hyperdense cyst or solid lesion. Consider nonemergent followup. Bilateral hydroureteronephrosis right greater than left. Multiple small calcifications in the distal right ureter, likely calculi. Amorphous hyperdense material may represent hemorrhage or soft tissue. Stomach and bowel: Percutaneous gastrostomy tube. No small bowel obstruction is evident. The rectum is distended with a large amount of fecal material and appears mildly thickened. Retained fecal material throughout the colon. Correlate clinically for history of constipation Appendix: No evidence of appendicitis. Intraperitoneal space: No free air. Vasculature: Arterial calcifications. Lymph nodes: No acute findings. Urinary bladder: Wilkerson catheter inflated in the penile urethra. Small amount of air in the urinary bladder attributed to recent catheterization. Please correlate clinically. Multiple calcifications in the posterior bladder, also seen previously. Distended urinary bladder. Reproductive: Markedly enlarged prostate. Bones/joints: Hemangiomas incidentally noted in the spine. Soft tissues: Fat containing umbilical and bilateral inguinal hernias. IMPRESSION: 1. Wilkerson catheter balloon inflated in penile urethra. 2. Bilateral hydroureteronephrosis may be secondary to ureteral calculi and/or bladder pathology. 3. Calcifications in the bladder, could represent calculi or intramural calcifications. Follow-up as clinically warranted. 4. The rectum is distended with fecal material and appears mildly thickened. Stercoral colitis not excluded. 5. Multiple additional findings as above. 6. THIS REPORT CONTAINS FINDINGS THAT MAY BE CRITICAL TO PATIENT CARE. The findings were verbally communicated via telephone conference with NEMESIO CARMONA at 6:07 AM EDT on 02/05/2023. The findings were acknowledged and understood. Thank you for allowing us to participate in the care of your patient. Dictated and Authenticated by: Aurea Bateman MD 02/05/2023 6:09 AM Eastern Time ([place] & [place]) HPI General Date/Time Provider Initiated Documentation: 02/05/23 05:11 . HPI Narrative: This is a 77-year-old male who is DNR/DNI, palliative care patient, with chronic indwelling Wilkerson catheter, baseline schizoaffective disorder who is nonverbal at baseline, who resides at [facility], who presents today for evaluation of urinary retention. Health and rehab state that the patient has had no urinary output for the last 12 hours, new Wilkerson catheter was placed at 7 PM out of concern that the old one may have been clogged. There has been no output since the new one was placed aside for small amount of blood. Patient is nonverbal and has no complaints. Patient was sent for further evaluation. No other historical components. Related Data Home Medications Medication Instructions Recorded Confirmed polyethylene glycol 3350 17 17 gm PO DAILY PRN PRN 11/06/18 02/05/23 gram/dose oral powder (Miralax) acetaminophen 325 mg tablet 650 mg PO 6XD PRN Fever 11/25/22 02/05/23 aspirin 81 mg chewable tablet 81 mg PO DAILY 11/25/22 02/05/23 magnesium hydroxide 400 mg/5 mL 30 ml PO BID PRN PRN 11/25/22 02/05/23 oral suspension (Milk of Magnesia) cyanocobalamin (vitamin B-12) 500 1,000 mcg PO DAILY #0 tabs 11/28/22 02/05/23 mcg tablet (Vitamin B-12) folic acid 1 mg tablet 1 mg PO DAILY #0 tabs 11/28/22 02/05/23 multivitamin with minerals-ferrous 1 tab PO DAILY@1000 #0 tabs 11/28/22 02/05/23 sulfate 4.5 mg iron tablet (One Daily Multivitamins with Minerals) zinc sulfate 50 mg zinc (220 mg) 220 mg PO DAILY #12 caps 11/28/22 02/05/23 capsule (Zinc-220) ascorbic acid (vitamin C) 500 mg 500 mg PO DAILY 12/10/22 02/05/23 tablet (Vitamin C) diltiazem HCl 60 mg tablet 60 mg PO TID #0 tabs 12/23/22 02/05/23 (Cardizem) thiamine mononitrate (vit B1) 100 100 mg PO DAILY #0 tabs 12/23/22 02/05/23 mg tablet (Vitamin B-1 (mononitrate)) scopolamine base 1 mg over 3 days 1 mg transdermal Q72H 01/05/23 02/05/23 transdermal patch magnesium oxide 400 mg PO DAILY 01/06/23 02/05/23 amantadine HCl 50 mg/5 mL oral 100 mg (10 mL) PO TID #0 mL 01/09/23 02/05/23 solution benztropine 1 mg tablet 1 mg feeding tube DAILY #0 tabs 01/09/23 02/05/23 carbidopa 25 mg-levodopa 250 mg 1 tab feeding tube 01/09/23 02/05/23 tablet QID@0700,1100,1600,1999 #30 tabs entacapone 200 mg tablet 200 mg NG QID@0700,1100,1600,2000 01/09/23 02/05/23 #30 tabs magnesium oxide 400 mg (241.3 mg 400 mg NG DAILY #0 tabs 01/09/23 02/05/23 magnesium) tablet silver sulfadiazine 1 % topical 25 g topical DAILY #0 grams 01/09/23 02/05/23 cream (Silvadene) Previous Rx's Medication Instructions Recorded cyanocobalamin (vitamin B-12) 500 1,000 mcg PO DAILY #0 tabs 11/28/22 mcg tablet (Vitamin B-12) folic acid 1 mg tablet 1 mg PO DAILY #0 tabs 11/28/22 multivitamin with minerals-ferrous 1 tab PO DAILY@1000 #0 tabs 11/28/22 sulfate 4.5 mg iron tablet (One Daily Multivitamins with Minerals) zinc sulfate 50 mg zinc (220 mg) 220 mg PO DAILY #12 caps 11/28/22 capsule (Zinc-220) diltiazem HCl 60 mg tablet 60 mg PO TID #0 tabs 12/23/22 (Cardizem) thiamine mononitrate (vit B1) 100 100 mg PO DAILY #0 tabs 12/23/22 mg tablet (Vitamin B-1 (mononitrate)) amantadine HCl 50 mg/5 mL oral 100 mg (10 mL) PO TID #0 mL 01/09/23 solution benztropine 1 mg tablet 1 mg feeding tube DAILY #0 tabs 01/09/23 carbidopa 25 mg-levodopa 250 mg 1 tab feeding tube 01/09/23 tablet QID@0700,1100,1600,2000 #30 tabs entacapone 200 mg tablet 200 mg NG QID@0700,1100,1600,2000 01/09/23 #30 tabs magnesium oxide 400 mg (241.3 mg 400 mg NG DAILY #0 tabs 01/09/23 magnesium) tablet silver sulfadiazine 1 % topical 25 g topical DAILY #0 grams 01/09/23 cream (Silvadene) Allergies Allergy/AdvReac Type Severity Reaction Status Date / Time No Known Allergies Allergy Verified 01/05/23 14:56 General JEANETTE: 2 Review of Systems All systems reviewed & are unremarkable except as noted in HPI and below PFSH All Active Problems (Updated 02/05/23 @ 05:54 by Nemesio Carmona DO) Complication of Wilkerson catheter (Acute) Advanced care planning/counseling discussion (Acute) PEG (percutaneous endoscopic gastrostomy) status (Acute) Palliative care patient (Acute) Oropharyngeal dysphagia (Acute) Folate deficiency (Acute) B12 deficiency (Acute) Sacral decubitus ulcer (Acute) Indwelling Wilkerson catheter present (Chronic) Dysphagia (Acute) Schizoaffective disorder (Acute) Pneumonia (Acute) Medical History Atrial fibrillation BPH (benign prostatic hyperplasia) Chronic kidney disease Communication deficit HTN (hypertension) Hx of hyperlipidemia 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 3.ENT: Atraumatic external nose and ears. Dry MM. Neck: Symmetric, trachea midline, No thyromegaly. 4.CVS: +S1/S2, No murmurs or gallops. Peripheral pulses 2+ and equal in all extremities. Brisk capillary refill in all extremities. 5.RESP: Unlabored respiratory effort. Clear to auscultation bilaterally. No wheezes rales or rhonchi 6.GI: Soft, nondistended, suprapubic area demonstrates palpable bladder which is firm. Greater than 1000 mL on bladder scan. Genital exam demonstrates indwelling Wilkerson catheter with small blood around the meatus and in the catheter itself. 7.MSK: Normocephalic/Atraumatic, Extremities w/o deformity or ttp No cyanosis or clubbing, 8.Skin: Warm, Dry. No rashes or lesions. 9.Neuro: android ui developer II-XII grossly intact. At neurologic baseline 10.Psych: (AAO) x0
[2023-02-05] MEDS: MORPHine 4 MG/ML SYR IVP (05:17)
[2023-02-05 05:31] LABS: Abs Immature Grans 0.06 10^3/uL (0.0-0.06); Absolute Eosinophil Count 0.15 10^3/uL (0.0-0.7); Absolute Monocyte Count 0.77 10^3/uL (0.1-0.8); Absolute Neutrophil Count 10.43 10^3/uL (1.2-6.7); Basophils % 0.7; Eosinophils % 1.2; HCT 42.2 % (40.0-50.0); HGB 14.4 g/dL (13.5-17.5); Immature Grans % 0.5; Lymphocytes % 5.7; MCH 31.8 pg (27.0-33.0); MCHC 34.1 % (32.0-36.0); MCV 93 fL (80-95); MPV 9.6 fL (8.0-11.0); Monocytes % 6.3; Neutrophils % 85.6; Platelet Count 277 10^3/uL (130-400); RBC 4.53 10^6/uL (4.36-5.78); RDW 13.7 % (11.8-14.1); RDW-SD 46.5 fL; Source Nasal/Nares; WBC 12.19 10^3/uL (4.4-10.8)
[2023-02-05 05:37] LABS: Absolute Basophil Count 0.09 10^3/uL (0.0-0.2); Absolute Lymphocyte Count 0.69 10^3/uL (1.2-3.4); Lactate 2.6 mmol/L (0.6-1.4)
[2023-02-05 05:50] LABS: ALT 19 U/L (16-63); AST 16 U/L (15-37); Albumin 4.2 g/dL (3.4-5.0); Alkaline Phosphatase 130 U/L (46-116); Anion Gap 11.4 mmol/L (3-11); BUN 25 mg/dL (7-18); Bilirubin, Total 0.9 mg/dL (0.2-1.0); CO2 21.6 mmol/L (21.0-32.0); CREATININE 1.4 mg/dL (0.70-1.30); Chloride 101 mmol/L (98-107); Estimated GFR 52.41 (mL/min/1.73m2); Glucose 145 mg/dL (74-106); Potassium 4.1 mmol/L (3.5-5.1); Sodium 134 mmol/L (136-145); Total Protein 8.5 g/dL (6.4-8.2)
--- NOTE | 2023-02-05 05:56 | NUR.NOTE ---
Balloon on ribeiro catheter deflated, catheter advanced into bladder, balloon reinflated, 1000ml clear/yellow urine output obtained:
--- NOTE | 2023-02-05 06:09 | DI.VRAD_ITS ---
PROCEDURE INFORMATION: Exam: CT Abdomen And Pelvis Without Contrast Exam date and time: 02/05/2023 5:27 AM Age: 77 years old Clinical indication: Other: Urinary retention, eval missplaced ribeiro or obstru TECHNIQUE: Imaging protocol: Computed tomography of the abdomen and pelvis without contrast. COMPARISON: CT CHEST/ABD/PEL W 12/10/2022 11:09 AM FINDINGS: Limitations: Images are degraded due to artifact caused by patient motion and arm positioning. No contrast was administered, limiting evaluation for some pathologies. Lungs: Atelectasis at the lung bases. Coronary arteries: Coronary artery calcifications. Liver: No focal hepatic lesion identified, within the limitations of a noncontrast examination. Gallbladder and bile ducts: Cholelithiasis. Pancreas: No CT evidence for acute pancreatitis. Spleen: No splenomegaly. Adrenal glands: No mass. Kidneys and ureters: Bilateral renal cysts. Additional lesion in the left kidney, statistically likely to represent a cyst but indeterminate on this examination. Cannot exclude hyperdense cyst or solid lesion. Consider nonemergent followup. Bilateral hydroureteronephrosis right greater than left. Multiple small calcifications in the distal right ureter, likely calculi. Amorphous hyperdense material may represent hemorrhage or soft tissue. Stomach and bowel: Percutaneous gastrostomy tube. No small bowel obstruction is evident. The rectum is distended with a large amount of fecal material and appears mildly thickened. Retained fecal material throughout the colon. Correlate clinically for history of constipation. Appendix: No evidence of appendicitis. Intraperitoneal space: No free air. Vasculature: Arterial calcifications. Lymph nodes: No acute findings. Urinary bladder: Ribeiro catheter inflated in the penile urethra. Small amount of air in the urinary bladder attributed to recent catheterization. Please correlate clinically. Multiple calcifications in the posterior bladder, also seen previously. Distended urinary bladder. Reproductive: Markedly enlarged prostate. Bones/joints: Hemangiomas incidentally noted in the spine. Soft tissues: Fat containing umbilical and bilateral inguinal hernias. IMPRESSION: 1. Ribeiro catheter balloon inflated in penile urethra. 2. Bilateral hydroureteronephrosis may be secondary to ureteral calculi and/or bladder pathology. 3. Calcifications in the bladder, could represent calculi or intramural calcifications. Follow-up as clinically warranted. 4. The rectum is distended with fecal material and appears mildly thickened. Stercoral colitis not excluded. 5. Multiple additional findings as above. 6. THIS REPORT CONTAINS FINDINGS THAT MAY BE CRITICAL TO PATIENT CARE. The findings were verbally communicated via telephone conference with HEDY CARMONA at 6:07 AM EDT on 02/05/2023. The findings were acknowledged and understood. Dictated and Authenticated by: Aurea Bateman MD. Ordering:TRANG Herr MD
[2023-02-05 06:18] LABS: COVID-19 PCR Negative (Negative)
[2023-02-05 06:40] VITALS: BP 101/87; PULSE 96; RESP 16; O2SAT 94
--- NOTE | 2023-02-05 07:41 | NUR.NOTE ---
Referral done per Dr. Tipton to Urology Dr. Gieger in 1-2 weeks for a ribeiro catheter urethral injury. Patient is currently a resident at [facility]. Nursing Note:
== END 2023-02-05 07:25 | disposition skilled nursing facility (03) ==
PROVIDERS: Emergency Provider Student in an Organized Health Care Education/Training Program; PCP Family Medicine
DX: T83.091A Other mechanical complication of indwelling urethral catheter, initial encounter (principal); I48.91 Unspecified atrial fibrillation; I12.9 Hypertensive chronic kidney disease with stage 1 through stage 4 chronic kidney disease, or unspecified chronic kidney disease; N18.9 Chronic kidney disease, unspecified; G20 Parkinson's disease; Z66 Do not resuscitate; Z20.822 Contact with and (suspected) exposure to COVID-19; Y83.3 Surgical operation with formation of external stoma as the cause of abnormal reaction of the patient, or of later complication, without mention of misadventure at the time of the procedure; Z79.82 Long term (current) use of aspirin
CPT/HCPCS: 51702; 80053; 87635; 96374; 99285; 74176; 83605; 85025; J2270

== ENCOUNTER 2023-02-05 13:10 | Outpatient (REF) | payer MEDICARE, MEDICAID, SELFPAY ==
[2023-02-05 13:56] LABS: Clarity Cloudy (Clear)
[2023-02-05 13:57] LABS: Bilirubin Color Interference (Negative); Blood Color Interference (Negative); Glucose Color Interference mg/dL (Negative); Ketones Color Interference mg/dL (Negative); Leukocyte Esterase Color Interference (Negative); Nitrite Color Interference (Negative); Urobilinogen Color Interference mg/dL (Up to 0.2)
[2023-02-05 13:58] LABS: C & S Indicated? C&S Done As Ordered; RBC >50 HPF (0-2); WBC >50 HPF (0-5)
== END 2023-02-05 13:11 | disposition home or self-care (01) ==
LOC: LBN 13:10
PROVIDERS: PCP Family Medicine; Visit Provider Family Medicine
DX: N39.0 Urinary tract infection, site not specified (principal)
CPT/HCPCS: 87077; 81003; 81015; 87086; 87186

== ENCOUNTER → 2023-02-14 11:04 | Outpatient (BNVA) | payer MEDICARE, MEDICAID, SELFPAY | PROVIDERS: PCP Family Medicine; Referring Provider Family Medicine; Visit Provider Psychiatry & Neurology Neurology | DX: G21.19 Other drug induced secondary parkinsonism (principal); G20 Parkinson's disease; Z99.3 Dependence on wheelchair | CPT/HCPCS: 99214 ==

== ENCOUNTER → 2023-03-02 14:38 | Outpatient (BNVA) | payer MEDICARE, MEDICAID, SELFPAY | PROVIDERS: PCP Family Medicine; Referring Provider Family Medicine; Visit Provider Urology | DX: R33.9 Retention of urine, unspecified (principal); Z96.0 Presence of urogenital implants; Z87.440 Personal history of urinary (tract) infections | CPT/HCPCS: 99214 ==

== ENCOUNTER 2023-03-06 16:51 | Outpatient (REF) | payer MEDICARE, MEDICAID, SELFPAY ==
[2023-03-06 17:47] LABS: Bilirubin Negative (Negative); Blood Trace-intact (Negative); Clarity Sl Cloudy (Clear); Glucose Negative (Negative); Ketones Trace mg/dL (Negative); Leukocyte Esterase Large (Negative); Nitrite Negative (Negative); Specific Gravity 1.015 (1.005-1.025); Urobilinogen 0.2 mg/dL (Up to 0.2); pH 7.5 (5-8)
[2023-03-06 18:03] LABS: Bacteria Moderate HPF (Negative); Epithelial Cells Rare HPF (Negative); Other Cells Rare Transitional (Negative); RBC 0-2 HPF (0-2); WBC 20-50 HPF (0-5)
[2023-03-06 18:04] LABS: C & S Indicated? Yes; Casts Negative LPF (Negative); Crystals Negative HPF (Negative); Mucus Trace (Negative)
== END 2023-03-06 16:52 | disposition home or self-care (01) ==
LOC: LBN 16:51
PROVIDERS: PCP Family Medicine; Visit Provider Family Medicine
DX: N39.8 Other specified disorders of urinary system (principal); R82.998 Other abnormal findings in urine
CPT/HCPCS: 87077; 81003; 81015; 87086; 87186

== ENCOUNTER 2023-04-07 15:16 | Outpatient (REF) | payer MEDICARE, MEDICAID, SELFPAY ==
[2023-04-07 16:20] LABS: Abs Immature Grans 0.07 10^3/uL (0.0-0.06); Absolute Basophil Count 0.04 10^3/uL (0.0-0.2); Absolute Eosinophil Count 0.04 10^3/uL (0.0-0.7); Absolute Lymphocyte Count 0.88 10^3/uL (1.2-3.4); Absolute Monocyte Count 0.92 10^3/uL (0.1-0.8); Absolute Neutrophil Count 8.25 10^3/uL (1.2-6.7); Basophils % 0.4; Eosinophils % 0.4; HCT 28.1 % (40.0-50.0); HGB 9.6 g/dL (13.5-17.5); Immature Grans % 0.7; Lymphocytes % 8.6; MCH 30.9 pg (27.0-33.0); MCHC 34.2 % (32.0-36.0); MCV 90 fL (80-95); MPV 10.2 fL (8.0-11.0); Neutrophils % 80.9; Platelet Count 347 10^3/uL (130-400); RBC 3.11 10^6/uL (4.36-5.78); RDW 12.7 % (11.8-14.1); RDW-SD 42.4 fL
[2023-04-07 16:57] LABS: ALT 10 U/L (16-63); AST 14 U/L (15-37); Albumin 2.5 g/dL (3.4-5.0); Alkaline Phosphatase 113 U/L (46-116); Anion Gap 11.8 mmol/L (3-11); BUN 59 mg/dL (7-18); Bilirubin, Total 0.4 mg/dL (0.2-1.0); CO2 21.2 mmol/L (21.0-32.0); CREATININE 1.5 mg/dL (0.70-1.30); Calcium 9.2 mg/dL (8.5-10.1); Chloride 96 mmol/L (98-107); Estimated GFR 47.95 (mL/min/1.73m2); Glucose 127 mg/dL (74-106); Sodium 129 mmol/L (136-145); Total Protein 7.8 g/dL (6.4-8.2)
== END 2023-04-07 15:17 | disposition home or self-care (01) ==
LOC: LBN 15:16
PROVIDERS: PCP Family Medicine; Visit Provider Physician Assistant
DX: R50.9 Fever, unspecified (principal)
CPT/HCPCS: 80053; 85025

== ENCOUNTER 2023-04-13 07:14 | Day surgery (SDC) | payer MEDICARE, MEDICAID, SELFPAY ==
[2023-04-13] VITALS (8 sets, daily range): BP systolic 105–133; BP diastolic 70–85; PULSE 83–87; RESP 15–24; TEMP 36.1–36.7; O2SAT 95–98; BMI 30.7
--- NOTE | 2023-04-13 07:49 | ANES.PREOP_ITS ---
General Info Date of Service Date Performed: 04/13/23 Height: 5 ft 11 in Weight: 99.79 kg Body Mass Index (BMI): 30.7 Surgical Procedure: Operation Date: 04/13/23 08:40 Proposed Procedure Side Surgeon p Cystoscopy/Evacuation of bladder stone, possible Holmium Laser Rashad Geiger MD s Suprapubic Tube Insertion Rashad Geiger MD Meds Allergies and Home Medications Allergies Allergy/AdvReac Type Severity Reaction Status Date / Time No Known Allergies Allergy Verified 04/13/23 07:31 Home Medication Medication Instructions Recorded polyethylene glycol 3350 17 17 gm PO DAILY PRN PRN 11/06/18 gram/dose oral powder (Miralax) acetaminophen 325 mg tablet 650 mg PO 6XD PRN Fever 11/25/22 aspirin 81 mg chewable tablet 81 mg PO DAILY 11/25/22 magnesium hydroxide 400 mg/5 mL 30 ml PO BID PRN PRN 11/25/22 oral suspension (Milk of Magnesia) cyanocobalamin (vitamin B-12) 500 1,000 mcg PO DAILY #0 tabs 11/28/22 mcg tablet (Vitamin B-12) folic acid 1 mg tablet 1 mg PO DAILY #0 tabs 11/28/22 multivitamin with minerals-ferrous 1 tab PO DAILY@1000 #0 tabs 11/28/22 sulfate 4.5 mg iron tablet (One Daily Multivitamins with Minerals) zinc sulfate 50 mg zinc (220 mg) 220 mg PO DAILY #12 caps 11/28/22 capsule (Zinc-220) diltiazem HCl 60 mg tablet 60 mg PO TID #0 tabs 12/23/22 (Cardizem) thiamine mononitrate (vit B1) 100 100 mg PO DAILY #0 tabs 12/23/22 mg tablet (Vitamin B-1 (mononitrate)) scopolamine base 1 mg over 3 days 1 mg transdermal Q72H 01/05/23 transdermal patch amantadine HCl 50 mg/5 mL oral 100 mg (10 mL) PO TID #0 mL 01/09/23 solution benztropine 1 mg tablet 1 mg feeding tube DAILY #0 tabs 01/09/23 carbidopa 25 mg-levodopa 250 mg 1 tab feeding tube 01/09/23 tablet QID@0700,1100,1600,2000 #30 tabs entacapone 200 mg tablet 200 mg NG QID@0700,1100,1600,2000 01/09/23 #30 tabs magnesium oxide 400 mg (241.3 mg 400 mg NG DAILY #0 tabs 01/09/23 magnesium) tablet silver sulfadiazine 1 % topical 25 g topical DAILY #0 grams 01/09/23 cream (Silvadene) ascorbate calcium (vitamin C) 500 500 mg PO DAILY #1 tab 02/09/23 mg tablet nutritional supplements 0.08 240 ml feeding tube .COMPLEX 03/16/23 gram-2 kcal/mL liquid for tube #6,000 mL feed (Nutren 2.0) Current Visit Medications: Current Medications Generic Name Dose Route Start Last Admin Trade Name Freq PRN Reason Stop Dose Admin Ringer's Solution 1,000 mls @ 80 mls/hr 04/13/23 06:00 IV 05/12/23 23:59 INFUSION TIFFANI Cefazolin Sodium/Dextrose 2 gm in 50 mls @ 100 mls/hr 04/13/23 06:00 Ancef Duplex IVPB 04/13/23 16:00 PREOP TIFFANI IV Miscellaneous Supplies 1 each 04/13/23 06:00 Iv Access IV 05/12/23 23:59 DIRECTED TIFFANI Sodium Chloride 0 ml 04/13/23 06:00 Normal Saline Flush 10 Ml Syr IV 05/12/23 23:59 PRN PRN Sodium Chloride 0 ml 04/13/23 06:00 Normal Saline 10 Ml Vial IJ 05/12/23 23:59 DIRECTED PRN Sterile Water 0 ml 04/13/23 06:00 Water,Injection,Sterile 10 Ml Vial IJ 05/12/23 23:59 DIRECTED PRN PFSH Active Problems Active Problems: Problem Status Onset Code Pneumonia J18.9 Schizoaffective disorder F25.9 Palliative care patient Z51.5 Indwelling Wilkerson catheter present Z97.8 Sacral decubitus ulcer L89.159 Oropharyngeal dysphagia R13.12 B12 deficiency E53.8 Folate deficiency E53.8 Dysphagia R13.10 PEG (percutaneous endoscopic gastrostomy) status Z93.1 Advanced care planning/counseling discussion Z71.89 Urinary retention R33.9 Bladder stones N21.0 Medical History Medical History Atrial fibrillation BPH (benign prostatic hyperplasia) Chronic kidney disease Communication deficit HTN (hypertension) Hx of hyperlipidemia Mass of thyroid gland On enteral nutrition Other schizoaffective disorders 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 Unable to walk in [place] transfer Tobacco Smoking/Tobacco Use Status: Never Alcohol Alcohol Intake: never Substance Use Substance use type: does not use Vital Signs and Lab Results Vital Signs Most Recent Vital Signs in EMR: Most Recent Vital Signs Temp Pulse Resp BP Pulse Ox 36.1 C L 86 24 105/76 95 04/13/23 07:40 04/13/23 07:40 04/13/23 07:40 04/13/23 07:40 04/13/23 07:40 Lab Results Blood Type / Crossmatch: No Data to Display Complete Blood Count: White Blood Count 10.20 10^3/uL (4.4-10.8) 04/07/23 14:21 Red Blood Count 3.11 10^6/uL (4.36-5.78) L 04/07/23 14:21 Hemoglobin 9.6 g/dL (13.5-17.5) L 04/07/23 14:21 Hematocrit 28.1 % (40.0-50.0) L 04/07/23 14:21 Platelet Count 347 10^3/uL (130-400) 04/07/23 14:21 Complete Metabolic Panel: Sodium 129 mmol/L (136-145) L 04/07/23 14:21 Potassium 4.0 mmol/L (3.5-5.1) 04/07/23 14:21 Chloride 96 mmol/L (98-107) L 04/07/23 14:21 Carbon Dioxide 21.2 mmol/L (21.0-32.0) 04/07/23 14:21 BUN 59 mg/dL (7-18) H 04/07/23 14:21 Creatinine 1.5 mg/dL (0.70-1.30) H 04/07/23 14:21 Est GFR (CKD-EPI 2020) 47.95 (mL/min/1.73m2) 04/07/23 14:21 Calcium 9.2 mg/dL (8.5-10.1) 04/07/23 14:21 Albumin 2.5 g/dL (3.4-5.0) L 04/07/23 14:21 Glucose 127 mg/dL (74-106) H 04/07/23 14:21 Liver Function Panel: Alanine Aminotransferase (ALT/SGPT) 10 U/L (16-63) L 04/07/23 1 4:21 Aspartate Amino Transf (AST/SGOT) 14 U/L (15-37) L 04/07/23 14: 21 Coagulation Panel: No Data to Display Cardiac Panel: No Data to Display Arterial Blood Gas: No Data to Display Venous Blood Gas: No Data to Display Pancreas Panel: No Data to Display Thyroid Panel: No Data to Display Infectious Disease: No Data to Display Blood Cultures: No Data to Display Toxicology Panel: No Data to Display Anesthesia Assessment and Plan Anesthesia History Personal History: No History of Anesthesia Complications Family History: No Family History of Anesthesia Complications Exercise Tolerance Exercise Tolerance: Metabolic Equivalents<4 Pertinent Negatives Pertinent Negatives: No Symptoms of GERD Cardiac & Pulmonary Exam Cardiac Exam: Normal S1/S2 Heart Sounds Pulmonary Exam: Clear Bilateral Breath Sounds Implantable Cardiac Device Does patient have a Pacemaker or an ICD?: No Airway Exam Known Difficult Airway: No Mallampati Class: 1 Mouth Opening: Normal (> 3cm) Thyromental Distance: Greater than 3 cm Neck Range of Motion: Full ROM Neck Circumference: Normal Teeth Condition: Normal Dentition ASA Classification ASA Score: ASA 3 Emergency Case?: No NPO Status NPO Status: NPO Clears >2 hours, Solids >8 hours Anesthesia Plan Resuscitation Status: Full Code Anesthesia Technique: General Anesthesia Airway Planned: Natural Airway Monitors Used: Standard Monitors
--- NOTE | 2023-04-13 07:59 | HPE_ITS ---
Date of service: 04/13/23 Time of Service: 07:59 Assessment and Plan Assessment and plan (1) Bladder stones: Status: Acute (2) Urinary retention: Status: Acute Assessment and plan: As long as he has no signs of pneumonia or systemic infection on his chest x-ray or blood work, we will move forward with cystoscopy, evacuation of bladder stones and placement of a suprapubic tube. If we find that any of his bladder stones are too large to evacuate, we will use the holmium laser to fragment the stones. If he does have signs of pneumonia on his chest x-ray, we would likely need to cancel today's procedure, treat him with an antibiotic and reschedule the procedure. History of Present Illness History of Present Illness Chief Complaint: Bladder stones/urinary retention Narrative: This is a 78-year-old gentleman who has a history of urinary retention. Currently, he is managed with an indwelling urethral catheter. He has had recurrent episodes of Proteus urinary tract infections. On scanning, he is known to have multiple stones within his bladder. It is suspected that the stones may be a nidus for his recurrent infections. He presents today for cystoscopy with evacuation and possible holmium laser lithotripsy of his bladder stones. We will also convert his indwelling urethral catheter to a suprapubic tube. Last evening, the patient developed a fever and required suctioning at the [facility]. Some blood work was sent from the [facility] this morning and a chest x-ray is recommended. All of these studies are pending at this time. Review of Systems Narrative: Spiked temperature last night required suction Dysphagia requiring PEG tube. No diabetes or thyroid dysfunction Recurrent pneumonia. Hx atrial fibrillation. No vomiting Parkinsons disease. No bleeding disorders No gout PFSH All Active Problems Pneumonia (Acute) Schizoaffective disorder (Acute) Palliative care patient (Acute) Indwelling Wilkerson catheter present (Chronic) Sacral decubitus ulcer (Acute) Oropharyngeal dysphagia (Acute) B12 deficiency (Acute) Folate deficiency (Acute) Dysphagia (Acute) PEG (percutaneous endoscopic gastrostomy) status (Acute) Advanced care planning/counseling discussion (Acute) Urinary retention (Acute) Bladder stones (Acute) Medical History Atrial fibrillation BPH (benign prostatic hyperplasia) Chronic kidney disease Communication deficit HTN (hypertension) Hx of hyperlipidemia Mass of thyroid gland On enteral nutrition Other schizoaffective disorders 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 Unable to walk in -[facility] transfer Social History Smoking/Tobacco Use Status: Never Smoking risk assessment performed?: Yes Alcohol Intake: never Substance use type: does not use Meds Allergies and Home Medications Allergies Allergy/AdvReac Type Severity Reaction Status Date / Time No Known Allergies Allergy Verified 04/13/23 07:31 Home Medications Medication Instructions Recorded Confirmed Type polyethylene glycol 3350 17 17 gm PO DAILY PRN PRN 11/06/18 04/12/23 History gram/dose oral powder (Miralax) acetaminophen 325 mg tablet 650 mg PO 6XD PRN Fever 11/25/22 04/12/23 History aspirin 81 mg chewable tablet 81 mg PO DAILY 11/25/22 04/12/23 History magnesium hydroxide 400 mg/5 mL 30 ml PO BID PRN PRN 11/25/22 04/12/23 History oral suspension (Milk of Magnesia) cyanocobalamin (vitamin B-12) 500 1,000 mcg PO DAILY #0 tabs 11/28/22 04/12/23 Rx mcg tablet (Vitamin B-12) folic acid 1 mg tablet 1 mg PO DAILY #0 tabs 11/28/22 04/12/23 Rx multivitamin with minerals-ferrous 1 tab PO DAILY@1000 #0 tabs 11/28/22 04/12/23 Rx sulfate 4.5 mg iron tablet (One Daily Multivitamins with Minerals) zinc sulfate 50 mg zinc (220 mg) 220 mg PO DAILY #12 caps 11/28/22 04/12/23 Rx capsule (Zinc-220) diltiazem HCl 60 mg tablet 60 mg PO TID #0 tabs 12/23/22 04/12/23 Rx (Cardizem) thiamine mononitrate (vit B1) 100 100 mg PO DAILY #0 tabs 12/23/22 04/12/23 Rx mg tablet (Vitamin B-1 (mononitrate)) scopolamine base 1 mg over 3 days 1 mg transdermal Q72H 01/05/23 04/12/23 History transdermal patch amantadine HCl 50 mg/5 mL oral 100 mg (10 mL) PO TID #0 mL 01/09/23 04/12/23 Rx solution benztropine 1 mg tablet 1 mg feeding tube DAILY #0 tabs 01/09/23 04/12/23 Rx carbidopa 25 mg-levodopa 250 mg 1 tab feeding tube 01/09/23 04/12/23 Rx tablet QID@0700,1100,1600,1999 #30 tabs entacapone 200 mg tablet 200 mg NG QID@0700,1100,1600,2000 01/09/23 04/12/23 Rx #30 tabs magnesium oxide 400 mg (241.3 mg 400 mg NG DAILY #0 tabs 01/09/23 04/12/23 Rx magnesium) tablet silver sulfadiazine 1 % topical 25 g topical DAILY #0 grams 01/09/23 04/12/23 Rx cream (Silvadene) ascorbate calcium (vitamin C) 500 500 mg PO DAILY #1 tab 02/09/23 04/12/23 Rx mg tablet nutritional supplements 0.08 240 ml feeding tube .COMPLEX 03/16/23 04/12/23 Rx gram-2 kcal/mL liquid for tube #6,000 mL feed (Nutren 2.0) Exam Const General: cooperative Neck Neck: supple Resp Effort & Inspection: normal respiratory effort Auscultation: clear to auscultation bilaterally Cardio Rate: regular rate Rhythm: regular rhythm GI Palpation: soft and other (no suprapubic scarring) Neuro General: patient alert and patient awake Results Last Vital Signs Temp 36.1 C L 04/13/23 07:40 Pulse 86 04/13/23 07:40 Resp 24 04/13/23 07:40 BP 105/76 04/13/23 07:40 Pulse Ox 95 04/13/23 07:40 Time Spent Time spent with Patient: <40 minutes Time was spent: other
[2023-04-13] MEDS: Lactated Ringers 1,000 ML 80 ML IV (08:00)
--- NOTE | 2023-04-13 08:57 | DI.RAD_ITS ---
Exam(s) XR PORTABLE CHEST AP EXAM: XR PORTABLE CHEST AP CLINICAL HISTORY: hx pneumonia TECHNIQUE: 2D digital imaging was performed. COMPARISON: CR XR PORTABLE CHEST AP from 01/05/2023 FINDINGS: Exam is limited by poor pulmonary inflation. Leads overlie the chest. LUNGS: Right diaphragm is again noted to be mildly elevated. There is adjacent atelectasis. The fidencio gs are otherwise clear. No pleural abnormality seen. HEART: Normal size. AORTA: Tortuous. BONES: Unremarkable for age. Soft tissues: Unremarkable. IMPRESSION: Mild right basilar atelectasis. DATA REPOSITORY: RADIATION DOSE DELIVERED:
[2023-04-13] MEDS: Lidocaine 1% Pres-Free 30 ML VIAL (09:26)
[2023-04-13] MEDS: Lidocaine 2% Jelly 6 ML SYR (09:26)
--- NOTE | 2023-04-13 09:56 | PDOC.DSDIS_ITS ---
Date of service: 04/13/23 Time of Service: 09:56 Discharge Plan Disposition Other Facility: [facility] Condition: Stable Discharge Details Reason For Visit: Suprapubic tube Attending Provider: Rashad Geiger Primary Care Provider: Henrik Mukherjee Home Meds and New Rx's Prescriptions: No Action ascorbate calcium (vitamin C) 500 mg tablet 500 mg PO DAILY Qty: 1 0RF Nutren 2.0 0.08 gram-2 kcal/mL liquid 240 ml feeding tube .COMPLEX Qty: 6000 0RF Rx Instructions: 240 mL via feeding tube 5 times a day; polyethylene glycol 3350 [Miralax] 17 gram/dose powder 17 gm PO DAILY PRN PRN magnesium hydroxide [Milk of Magnesia] 400 mg/5 mL Suspension 30 ml PO BID PRN PRN acetaminophen 325 mg Tablet 650 mg PO 6XD PRN (Reason: Fever) aspirin 81 mg Tablet,Chewable 81 mg PO DAILY cyanocobalamin (vitamin B-12) [Vitamin B-12] 500 mcg Tablet 1,000 mcg PO DAILY Qty: 0 0RF folic acid 1 mg Tablet 1 mg PO DAILY Qty: 0 0RF One Daily Multi-Vit w-Mineral 4.5 mg iron Tablet 1 tab PO DAILY@1000 Qty: 0 0RF zinc sulfate [Zinc-220] 50 mg zinc (220 mg) Capsule 220 mg PO DAILY Qty: 12 0RF thiamine mononitrate (vit B1) [Vitamin B-1 (mononitrate)] 100 mg Tablet 100 mg PO DAILY Qty: 0 0RF diltiazem HCl [Cardizem] 60 mg Tablet 60 mg PO TID Qty: 0 0RF scopolamine base 1 mg over 3 days Patch 3 Day 1 mg transdermal Q72H magnesium oxide 400 mg (241.3 mg magnesium) Tablet 400 mg NG DAILY Qty: 0 0RF silver sulfadiazine [Silvadene] 1 % Cream 25 g topical DAILY Qty: 0 0RF carbidopa-levodopa 25-250 mg Tablet 1 tab feeding tube QID@0700,1100,1600,2000 Qty: 30 0RF entacapone 200 mg Tablet 200 mg NG QID@0700,1100,1600,2000 Qty: 30 0RF amantadine HCl 50 mg/5 mL solution 100 mg PO TID Qty: 0 0RF benztropine 1 mg tablet 1 mg feeding tube DAILY Qty: 0 0RF Discharge Instructions Additional Instructions: Suprapubic tube to gravity Followup appt @ 1 month for catheter change Activity:: Activity as Tolerated Remove Dressings/Wound Care:: 24 hours Shower/Bathe:: 24 hours Diet:: As Tolerated DS: Diagnosis Discharge Diagnosis (1) Bladder stones: Status: Acute (2) Urinary retention: Status: Acute
--- NOTE | 2023-04-13 11:29 | W.ANESPOSTOP ---
Postoperative Evaluation Date, Time and Location Date Performed: 04/13/23 Time Performed: 11:29 Patient Location: Day Surgery Unit Vital Signs Most Recent Imported Vital Signs: Most Recent Vital Signs Temp Pulse Resp BP Pulse Ox 36.7 C 84 20 133/83 97 04/13/23 11:10 04/13/23 11:10 04/13/23 11:10 04/13/23 11:10 04/13/23 11:10 Pain Score Most Recent Pain Score: Most Recent Pain Score Pain Level 0 04/13/23 11:10 Assessment Mental Status: Awake (Alert & Oriented to Patient Baseline) Airway and Respiratory Function: Patent airway with normal (patient baseline) respiratory exam Cardiovascular Function: Hemodynamically Stable Hydration Status: Adequately Hydrated Nausea & Vomiting: No Nausea or Vomiting Pain: Pt. Denies Any Pain Peripheral Nerve Block: Patient did not receive a nerve block Postoperative Comments:: Pt. indicates he is comfortable and ready to leave.
--- NOTE | 2023-04-13 15:05 | ROE_ITS ---
Date of service: 04/13/23 Time of Service: 10:00 Operative Note Operative Note DATE OF PROCEDURE: 04/13/23 PRE-OP DIAGNOSIS: 1. Urinary retention 2. Bladder stones POST-OP DIAGNOSIS: same PROCEDURE: Cystoscopy, evacuation of bladder stones, placement of suprapubic tube SURGEON: Rashad Geiger ANESTHESIA TYPE: Local By Surgeon and General LMA/ETT Refer to Anesthesia Record ESTIMATED BLOOD LOSS: 10 PATHOLOGY: other (Stones for chemical analysis) COMPLICATIONS: None Patient was transported to: PACU Patient's condition: stable Implants: 18 Luxembourger suprapubic tube with 10 cc of sterile water in balloon Indications: This is a 78-year-old gentleman who has a history of Parkinson's along with a psychiatric history. He has urinary retention which is managed with a chronic indwelling urethral catheter. 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 He has had recurrent Proteus urinary tract infections with multiple stones found within the bladder. He presents now for cystoscopy with evacuation of his bladder stones and placement of a suprapubic tube Findings: Multiple bladder stones Procedure Description: The patient was given preoperative antibiotics and brought to the operating room on 04/13/2023. After successful induction of general anesthesia, he was placed in the dorsal lithotomy position. His indwelling catheter balloon was deflated and the catheter was removed. His genitalia and suprapubic area were all prepped and draped. 2% Xylocaine jelly was then instilled into the urethra to act as a local anesthetic. A 22 Luxembourger rigid cystoscope was passed through the urethra into the bladder. The urethra and bladder were inspected using a 30 degree lens. In addition to the urethral erosion, the remainder of the urethra appeared normal with no strictures. The prostatic urethra showed some lateral lobe enlargement. The bladder neck was entered and the bladder mucosa was inspected. The bladder was heavily trabeculated. Multiple stones were found within the bladder. Most of the stones were irrigated free using a Roula syringe. Some of the larger stones were grasped and alligator forceps and removed one by one. All stone fragments were sent to pathology for chemical analysis. Once the stones had been removed, I passed the Sterling tractor through the urethra into the bladder. The tip of the Sterling was held up against the abdominal wall and a field block was performed using 1% lidocaine. An incision was made over the tip of the Sterling and the tip of the device was brought through the suprapubic area onto the abdominal wall. The jaws of the Sterling were opened and an 18 Luxembourger catheter was grasped and pulled down through the suprapubic indecision, through the bladder and out the urethra where it was released from the lateral sling. The catheter was then repositioned under cystoscopic guidance. Once the catheter balloon was visualized within the bladder, the balloon was inflated with 10 cc of sterile water and the catheter was hooked to gravity drainage. The patient tolerated this procedure well with no complications.
== END 2023-04-13 11:30 | disposition home or self-care (01) ==
PROVIDERS: PCP Family Medicine; Visit Provider Urology
PROC: (CPT 51102; principal; 2023-04-13 08:30)
PROC: (CPT 51102; 2023-04-13 08:30)
DX: N21.0 Calculus in bladder (principal); R33.9 Retention of urine, unspecified
CPT/HCPCS: 51102; 52310; 71045; 82365; J1100; J2405

== ENCOUNTER 2023-04-13 07:29 | Outpatient (REF) | payer MEDICARE, MEDICAID, SELFPAY ==
[2023-04-13 08:25] LABS: HCT 31.5 % (40.0-50.0); HGB 10.6 g/dL (13.5-17.5); MCH 30.5 pg (27.0-33.0); MCHC 33.7 % (32.0-36.0); MCV 91 fL (80-95); MPV 9.6 fL (8.0-11.0); Platelet Count 362 10^3/uL (130-400); RBC 3.47 10^6/uL (4.36-5.78); RDW 12.9 % (11.8-14.1); RDW-SD 42.5 fL
[2023-04-13 08:37] LABS: BUN 45 mg/dL (7-18); CREATININE 1.3 mg/dL (0.70-1.30); Calcium 8.9 mg/dL (8.5-10.1); Chloride 98 mmol/L (98-107); Estimated GFR 56.93 (mL/min/1.73m2); Glucose 85 mg/dL (74-106); Potassium 4.6 mmol/L (3.5-5.1); Sodium 133 mmol/L (136-145)
== END 2023-04-13 07:30 | disposition home or self-care (01) ==
LOC: LBN 07:29
PROVIDERS: PCP Family Medicine; Visit Provider Family Medicine
DX: N18.9 Chronic kidney disease, unspecified (principal); D63.1 Anemia in chronic kidney disease
CPT/HCPCS: 80048; 85027

== ENCOUNTER 2023-04-25 07:47 | Outpatient (REF) | payer MEDICARE, MEDICAID, SELFPAY ==
[2023-04-25 09:36] LABS: Abs Immature Grans 0.07 10^3/uL (0.0-0.06); Absolute Basophil Count 0.04 10^3/uL (0.0-0.2); Absolute Eosinophil Count 0.21 10^3/uL (0.0-0.7); Absolute Lymphocyte Count 0.69 10^3/uL (1.2-3.4); Absolute Monocyte Count 0.77 10^3/uL (0.1-0.8); Basophils % 0.4; Eosinophils % 2.2; HCT 29.8 % (40.0-50.0); HGB 9.9 g/dL (13.5-17.5); Immature Grans % 0.7; Lymphocytes % 7.4; MCHC 33.2 % (32.0-36.0); MCV 90 fL (80-95); MPV 9.8 fL (8.0-11.0); Monocytes % 8.2; Neutrophils % 81.1; Platelet Count 343 10^3/uL (130-400); RDW 13.3 % (11.8-14.1); RDW-SD 44.2 fL; WBC 9.38 10^3/uL (4.4-10.8)
[2023-04-25 09:41] LABS: Anion Gap 9.7 mmol/L (3-11); BUN 44 mg/dL (7-18); CO2 25.3 mmol/L (21.0-32.0); CREATININE 1.2 mg/dL (0.70-1.30); Calcium 9.2 mg/dL (8.5-10.1); Chloride 102 mmol/L (98-107); Estimated GFR 62.67 (mL/min/1.73m2); Glucose 110 mg/dL (74-106); Potassium 4.3 mmol/L (3.5-5.1); Sodium 137 mmol/L (136-145)
[2023-04-25 17:01] LABS: Bilirubin Color Interference (Negative); Blood Color Interference (Negative); Clarity Turbid (Clear); Glucose Color Interference mg/dL (Negative); Ketones Color Interference mg/dL (Negative); Leukocyte Esterase Color Interference (Negative); Nitrite Color Interference (Negative); Specific Gravity 1.014 (1.005-1.025); Urobilinogen Color Interference mg/dL (Up to 0.2)
[2023-04-25 17:03] LABS: C & S Indicated? Yes; RBC >50 HPF (0-2)
== END 2023-04-25 07:48 | disposition home or self-care (01) ==
LOC: LBN 07:47
PROVIDERS: PCP Family Medicine; Visit Provider Physician Assistant
DX: D63.1 Anemia in chronic kidney disease (principal); E53.8 Deficiency of other specified B group vitamins; N39.0 Urinary tract infection, site not specified
CPT/HCPCS: 80048; 87077; 81003; 81015; 85025; 87086; 87186

== ENCOUNTER → 2023-05-24 10:25 | Outpatient (BNVA) | payer MEDICARE, MEDICAID, SELFPAY | PROVIDERS: PCP Family Medicine; Referring Provider Family Medicine; Visit Provider Psychiatry & Neurology Neurology | DX: G21.19 Other drug induced secondary parkinsonism (principal); Z99.3 Dependence on wheelchair; I12.9 Hypertensive chronic kidney disease with stage 1 through stage 4 chronic kidney disease, or unspecified chronic kidney disease; N18.9 Chronic kidney disease, unspecified | CPT/HCPCS: 99213 ==

== ENCOUNTER → 2023-05-26 14:37 | Outpatient (BNVA) | payer MEDICARE, MEDICAID, SELFPAY | PROVIDERS: PCP Family Medicine; Referring Provider Family Medicine; Visit Provider Urology | DX: Z43.5 Encounter for attention to cystostomy (principal); R33.9 Retention of urine, unspecified | CPT/HCPCS: 51705 ==

== ENCOUNTER 2023-06-06 09:46 | Emergency (ER) | payer MEDICARE, MEDICAID, SELFPAY ==
[2023-06-06 09:52] VITALS: BP 124/82; PULSE 103; RESP 20; TEMP 37; O2SAT 94
--- NOTE | 2023-06-06 10:00 | ED.GENADUL_ITS ---
Discharge Plan Disposition Patient Disposition: Home Condition: Improving Discharge Details Clinical Impression: Acute UTI, Complication of Wilkerson catheter Primary Care Provider: Henrik Mukherjee ED Provider: Pasquale Hardin Home Meds and New Rx's Prescriptions: New cefpodoxime 200 mg tablet 200 mg PO BID 7 Days Qty: 14 0RF Rx Instructions: must administer with a meal/food No Action ascorbate calcium (vitamin C) 500 mg tablet 500 mg PO DAILY Qty: 1 0RF scopolamine base 1 mg over 3 days patch 3 day 1 patch transdermal Q3D PRN ipratropium-albuterol 0.5 mg-3 mg(2.5 mg base)/3 mL solution for nebulization 3 ml inhalation Q6H PRN famotidine 20 mg tablet 20 mg PO DAILY Nutren 2.0 0.08 gram-2 kcal/mL liquid 240 ml feeding tube .COMPLEX Qty: 6000 0RF Rx Instructions: 240 mL via feeding tube 5 times a day; polyethylene glycol 3350 [Miralax] 17 gram/dose powder 17 gm PO DAILY PRN PRN magnesium hydroxide [Milk of Magnesia] 400 mg/5 mL Suspension 30 ml PO BID PRN PRN acetaminophen 325 mg Tablet 650 mg PO 6XD PRN (Reason: Fever) aspirin 81 mg Tablet,Chewable 81 mg PO DAILY cyanocobalamin (vitamin B-12) [Vitamin B-12] 500 mcg Tablet 1,000 mcg PO DAILY Qty: 0 0RF folic acid 1 mg Tablet 1 mg PO DAILY Qty: 0 0RF One Daily Multi-Vit w-Mineral 4.5 mg iron Tablet 1 tab PO DAILY@1000 Qty: 0 0RF zinc sulfate [Zinc-220] 50 mg zinc (220 mg) Capsule 220 mg PO DAILY Qty: 12 0RF thiamine mononitrate (vit B1) [Vitamin B-1 (mononitrate)] 100 mg Tablet 100 mg PO DAILY Qty: 0 0RF diltiazem HCl [Cardizem] 60 mg Tablet 60 mg PO TID Qty: 0 0RF scopolamine base 1 mg over 3 days Patch 3 Day 1 mg transdermal Q72H magnesium oxide 400 mg (241.3 mg magnesium) Tablet 400 mg NG DAILY Qty: 0 0RF silver sulfadiazine [Silvadene] 1 % Cream 25 g topical DAILY Qty: 0 0RF carbidopa-levodopa 25-250 mg Tablet 1 tab feeding tube QID@0700,1100,1600,2000 Qty: 30 0RF entacapone 200 mg Tablet 200 mg NG QID@0700,1100,1600,2000 Qty: 30 0RF amantadine HCl 50 mg/5 mL solution 100 mg PO TID Qty: 0 0RF benztropine 1 mg tablet 1 mg feeding tube DAILY Qty: 0 0RF Discharge Instructions Instructions: Urinary Tract Infection in Men (ED), Wilkerson Catheter Placement and Care (ED) Medical Decision Making 78-year-old male history of Parkinson's presents referred in by care facility for decreased urine output in Wilkerson catheter bag, appears dry with dry skin and dry oral mucosa, mildly tachycardic on arrival, afebrile, nontoxic, some suprapubic fullness upon palpation without guarding or rebounding, inspissated cloudy urine in catheter tubing and bag; consider UTI versus obstructed Wilkerson tubing; will change out Wilkerson will obtain UA basic labs fluid bolus close reassessment of urine output and vital signs. If improvement of urine output and heart rate will consider discharge home back to care facility otherwise consider admission for antibiotics and hydration 11: 21 heart rate improved resting comfortably urine for allowing much more freely after insertion of new Wilkerson catheter, evidence of becky UTI. Will start on empiric cefpodoxime. Patient be discharged back to care facility HPI General Date/Time Provider Initiated Documentation: 06/06/23 09:56 . HPI Narrative: 78-year-old male history of Parkinson's, nonverbal, chronic indwelling Wilkerson catheter presents referred in from care facility for evaluation of decreased urine output. Related Data Home Medications Medication Instructions Recorded Confirmed polyethylene glycol 3350 17 17 gm PO DAILY PRN PRN 11/06/18 06/06/23 gram/dose oral powder (Miralax) acetaminophen 325 mg tablet 650 mg PO 6XD PRN Fever 11/25/22 06/06/23 aspirin 81 mg chewable tablet 81 mg PO DAILY 11/25/22 06/06/23 magnesium hydroxide 400 mg/5 mL 30 ml PO BID PRN PRN 11/25/22 06/06/23 oral suspension (Milk of Magnesia) cyanocobalamin (vitamin B-12) 500 1,000 mcg PO DAILY #0 tabs 11/28/22 06/06/23 mcg tablet (Vitamin B-12) folic acid 1 mg tablet 1 mg PO DAILY #0 tabs 11/28/22 06/06/23 multivitamin with minerals-ferrous 1 tab PO DAILY@1000 #0 tabs 11/28/22 06/06/23 sulfate 4.5 mg iron tablet (One Daily Multivitamins with Minerals) zinc sulfate 50 mg zinc (220 mg) 220 mg PO DAILY #12 caps 11/28/22 06/06/23 capsule (Zinc-220) diltiazem HCl 60 mg tablet 60 mg PO TID #0 tabs 12/23/22 06/06/23 (Cardizem) thiamine mononitrate (vit B1) 100 100 mg PO DAILY #0 tabs 12/23/22 06/06/23 mg tablet (Vitamin B-1 (mononitrate)) scopolamine base 1 mg over 3 days 1 mg transdermal Q72H 01/05/23 06/06/23 transdermal patch amantadine HCl 50 mg/5 mL oral 100 mg (10 mL) PO TID #0 mL 01/09/23 06/06/23 solution benztropine 1 mg tablet 1 mg feeding tube DAILY #0 tabs 01/09/23 06/06/23 carbidopa 25 mg-levodopa 250 mg 1 tab feeding tube 01/09/23 06/06/23 tablet QID@0700,1100,1600,1999 #30 tabs entacapone 200 mg tablet 200 mg NG QID@0700,1100,1600,2000 01/09/23 06/06/23 #30 tabs magnesium oxide 400 mg (241.3 mg 400 mg NG DAILY #0 tabs 01/09/23 06/06/23 magnesium) tablet silver sulfadiazine 1 % topical 25 g topical DAILY #0 grams 01/09/23 06/06/23 cream (Silvadene) ascorbate calcium (vitamin C) 500 500 mg PO DAILY #1 tab 02/09/23 06/06/23 mg tablet nutritional supplements 0.08 240 ml feeding tube .COMPLEX 03/16/23 06/06/23 gram-2 kcal/mL liquid for tube #6,000 mL feed (Nutren 2.0) famotidine 20 mg tablet 20 mg PO DAILY 05/24/23 06/06/23 ipratropium 0.5 mg-albuterol 3 mg 3 ml inhalation Q6H PRN 05/24/23 06/06/23 (2.5 mg base)/3 mL nebulization soln scopolamine base 1 mg over 3 days 1 patch transdermal Q3D PRN 05/24/23 06/06/23 transdermal patch cefpodoxime 200 mg tablet 200 mg PO BID 7 days #14 tabs 06/06/23 Previous Rx's Medication Instructions Recorded cyanocobalamin (vitamin B-12) 500 1,000 mcg PO DAILY #0 tabs 11/28/22 mcg tablet (Vitamin B-12) folic acid 1 mg tablet 1 mg PO DAILY #0 tabs 11/28/22 multivitamin with minerals-ferrous 1 tab PO DAILY@1000 #0 tabs 11/28/22 sulfate 4.5 mg iron tablet (One Daily Multivitamins with Minerals) zinc sulfate 50 mg zinc (220 mg) 220 mg PO DAILY #12 caps 11/28/22 capsule (Zinc-220) diltiazem HCl 60 mg tablet 60 mg PO TID #0 tabs 12/23/22 (Cardizem) thiamine mononitrate (vit B1) 100 100 mg PO DAILY #0 tabs 12/23/22 mg tablet (Vitamin B-1 (mononitrate)) amantadine HCl 50 mg/5 mL oral 100 mg (10 mL) PO TID #0 mL 01/09/23 solution benztropine 1 mg tablet 1 mg feeding tube DAILY #0 tabs 01/09/23 carbidopa 25 mg-levodopa 250 mg 1 tab feeding tube 01/09/23 tablet QID@0700,1100,1600,1999 #30 tabs entacapone 200 mg tablet 200 mg NG QID@0700,1100,1600,2000 01/09/23 #30 tabs magnesium oxide 400 mg (241.3 mg 400 mg NG DAILY #0 tabs 01/09/23 magnesium) tablet silver sulfadiazine 1 % topical 25 g topical DAILY #0 grams 01/09/23 cream (Silvadene) ascorbate calcium (vitamin C) 500 500 mg PO DAILY #1 tab 02/09/23 mg tablet nutritional supplements 0.08 240 ml feeding tube .COMPLEX 03/16/23 gram-2 kcal/mL liquid for tube #6,000 mL feed (Nutren 2.0) cefpodoxime 200 mg tablet 200 mg PO BID 7 days #14 tabs 06/06/23 Allergies Allergy/AdvReac Type Severity Reaction Status Date / Time No Known Allergies Allergy Verified 06/06/23 09:55 General Stated Complaint: Urinary JEANETTE: 3 Review of Systems Narrative: Review of Systems Constitutional: negative Eyes: negative ENT: negative Cardiovascular: negative Respiratory: negative Gastrointestinal: negative : Decreased urine output Musculoskeletal: negative Skin: negative Neurologic: negative Psych: negative PFSH All Active Problems (Updated 06/06/23 @ 11:22 by Pasquale Hardin MD) Acute UTI (Acute) Complication of Wilkerson catheter (Acute) Pneumonia (Acute) Schizoaffective disorder (Acute) Palliative care patient (Acute) Sacral decubitus ulcer (Acute) Oropharyngeal dysphagia (Acute) B12 deficiency (Acute) Folate deficiency (Acute) Dysphagia (Acute) PEG (percutaneous endoscopic gastrostomy) status (Acute) Advanced care planning/counseling discussion (Acute) Urinary retention (Acute) Medical History (Updated 06/06/23 @ 11:22 by Pasquale Hardin MD) Atrial fibrillation Bladder stones BPH (benign prostatic hyperplasia) Chronic kidney disease Communication deficit HTN (hypertension) Hx of hyperlipidemia Indwelling Wilkerson catheter present Mass of thyroid gland On enteral nutrition Other schizoaffective disorders 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 Unable to walk in [facility] transfer Social History Smoking/Tobacco Use Status: Never Smoking risk assessment performed?: Yes Alcohol Intake: never Substance use type: does not use Exam Narrative Exam Narrative: Physical Examination General: Awake, resting comfortably HEENT: normocephalic, atraumatic; PERRL, EOM intact, conjunctiva normal; no nasal discharge; dry oral mucosa Neck: supple, trachea midline; full ROM Chest: normal to inspection Respiratory: normal respiratory effort, speaking in full sentences, clear to auscultation, no wheezing, rales or rhonchi Cardiac: Tachycardia, regular rhythm, S1S2 intact, no murmurs rubs or gallops GI: abdomen soft, non-tender, mild fullness in suprapubic region; no palpable mass or hepatosplenomegaly : Inspissated cloudy dark urine in bag and catheter tubing Skin: no lesions, rashes or trauma appreciated Neuro: Nonverbal Course Vital Signs Vital signs: Vital Signs Temperature 37.0 C 06/06/23 09:52 Pulse 103 H 06/06/23 09:52 Respiratory Rate 20 06/06/23 09:52 Blood Pressure 124/82 06/06/23 09:52 Pulse Oximetry 94 06/06/23 09:52 Temperature 37.0 C 06/06/23 09:52 Pulse 103 H 06/06/23 09:52 Respiratory Rate 20 06/06/23 09:52 Blood Pressure 124/82 06/06/23 09:52 Blood Pressure Position Sitting 06/06/23 09:52 Pulse Oximetry 94 06/06/23 09:52 Oxygen Delivery Method Room Air 06/06/23 09:52 Oxygen Flow Rate 0 06/06/23 09:52
[2023-06-06] MEDS: Normal Saline 1,000 ML 1000 ML IV (10:13)
[2023-06-06 10:20] LABS: Abs Immature Grans 0.03 10^3/uL (0.0-0.06); Absolute Basophil Count 0.05 10^3/uL (0.0-0.2); Absolute Lymphocyte Count 1.04 10^3/uL (1.2-3.4); Absolute Monocyte Count 0.57 10^3/uL (0.1-0.8); Absolute Neutrophil Count 5.35 10^3/uL (1.2-6.7); Basophils % 0.7; Eosinophils % 2.8; HCT 35.7 % (40.0-50.0); HGB 11.2 g/dL (13.5-17.5); Immature Grans % 0.4; Lymphocytes % 14.4; MCH 27.9 pg (27.0-33.0); MCHC 31.4 % (32.0-36.0); MCV 89 fL (80-95); MPV 9.1 fL (8.0-11.0); Monocytes % 7.9; Neutrophils % 73.8; Platelet Count 395 10^3/uL (130-400); RBC 4.02 10^6/uL (4.36-5.78); RDW 15.9 % (11.8-14.1); RDW-SD 51.6 fL; WBC 7.24 10^3/uL (4.4-10.8)
[2023-06-06 10:40] LABS: ALT 8 U/L (16-63); AST 25 U/L (15-37); Alkaline Phosphatase 129 U/L (46-116); Anion Gap 11.2 mmol/L (3-11); BUN 36 mg/dL (7-18); Bilirubin, Total 0.3 mg/dL (0.2-1.0); CO2 23.8 mmol/L (21.0-32.0); CREATININE 1.3 mg/dL (0.70-1.30); Chloride 102 mmol/L (98-107); Estimated GFR 56.93 (mL/min/1.73m2); Glucose 157 mg/dL (74-106); Potassium 4.1 mmol/L (3.5-5.1); Sodium 137 mmol/L (136-145)
[2023-06-06 10:59] LABS: Bilirubin Negative (Negative); Blood Trace-intact (Negative); Clarity Cloudy (Clear); Glucose Negative (Negative); Ketones Negative (Negative); Leukocyte Esterase Large (Negative); Nitrite Positive (Negative); Urobilinogen 0.2 mg/dL (Up to 0.2); pH 8.5 (5-8)
[2023-06-06 11:08] LABS: Bacteria Many HPF (Negative); C & S Indicated? Yes; Casts 0-2 Hyaline LPF (Negative); Crystals Negative HPF (Negative); Epithelial Cells Rare HPF (Negative); Mucus Negative (Negative); RBC 0-2 HPF (0-2); WBC >50 HPF (0-5)
[2023-06-06] MEDS: Cefpodoxime 200 MG TAB PO (11:56)
== END 2023-06-06 11:51 | disposition home or self-care (01) ==
PROVIDERS: Emergency Provider Emergency Medicine; PCP Family Medicine
DX: T83.098A Other mechanical complication of other urinary catheter, initial encounter (principal); N39.0 Urinary tract infection, site not specified
CPT/HCPCS: 36415; 51702; 80053; 87077; 96360; 99283; 81003; 81015; 85025; 87086; 87186; 99284

== ENCOUNTER → 2023-06-29 14:56 | Outpatient (BNVA) | payer MEDICARE, MEDICAID, SELFPAY | PROVIDERS: PCP Family Medicine; Referring Provider Family Medicine; Visit Provider Nurse Practitioner Gerontology | DX: Z43.5 Encounter for attention to cystostomy (principal); R33.9 Retention of urine, unspecified | CPT/HCPCS: 51705 ==

== ENCOUNTER 2023-07-10 12:57 | Outpatient (REF) | payer MEDICARE, MEDICAID, SELFPAY ==
[2023-07-10 14:01] LABS: Bilirubin Negative (Negative); Blood Trace-intact (Negative); Clarity Cloudy (Clear); Glucose Negative (Negative); Ketones Negative (Negative); Leukocyte Esterase Large (Negative); Nitrite Negative (Negative); Urobilinogen 0.2 mg/dL (Up to 0.2); pH >= 9.0 (5-8)
[2023-07-10 14:12] LABS: C & S Indicated? C&S Done As Ordered; WBC >50 HPF (0-5)
== END 2023-07-10 12:58 | disposition home or self-care (01) ==
LOC: LBN 12:57
PROVIDERS: PCP Family Medicine; Visit Provider Nurse Practitioner Adult Health
DX: N39.0 Urinary tract infection, site not specified (principal)
CPT/HCPCS: 87077; 81003; 81015; 87086; 87186

== ENCOUNTER 2023-09-01 21:02 | Outpatient (REF) | payer MEDICARE, MEDICAID, SELFPAY ==
[2023-09-01 18:49] LABS: HCT 33.1 % (40.0-50.0); HGB 10.6 g/dL (13.5-17.5); MCV 91 fL (80-95); MPV 9.8 fL (8.0-11.0); Platelet Count 343 10^3/uL (130-400); RBC 3.65 10^6/uL (4.36-5.78); RDW 14.2 % (11.8-14.1); RDW-SD 47.6 fL; WBC 5.54 10^3/uL (4.4-10.8)
[2023-09-01 19:21] LABS: Anion Gap 7.6 mmol/L (3-11); BUN 28 mg/dL (7-18); CO2 27.4 mmol/L (21.0-32.0); CREATININE 1.1 mg/dL (0.70-1.30); Calcium 9.6 mg/dL (8.5-10.1); Chloride 102 mmol/L (98-107); Estimated GFR 69.57 (mL/min/1.73m2); Glucose 129 mg/dL (74-106); Potassium 4.3 mmol/L (3.5-5.1); Sodium 137 mmol/L (136-145)
== END 2023-09-01 21:03 | disposition home or self-care (01) ==
LOC: LBN 21:02
PROVIDERS: PCP Family Medicine; Visit Provider Nurse Practitioner Adult Health
DX: E07.9 Disorder of thyroid, unspecified (principal); N18.9 Chronic kidney disease, unspecified; D63.1 Anemia in chronic kidney disease
CPT/HCPCS: 80048; 85027; 84443

== ENCOUNTER → 2023-09-20 10:26 | Outpatient (BNVA) | payer MEDICARE, MEDICAID, SELFPAY | PROVIDERS: PCP Family Medicine; Referring Provider Family Medicine; Visit Provider Psychiatry & Neurology Neurology | DX: G21.19 Other drug induced secondary parkinsonism (principal); Z99.3 Dependence on wheelchair | CPT/HCPCS: 99213 ==

== ENCOUNTER → 2023-10-04 14:24 | Outpatient (BNVA) | payer MEDICARE, MEDICAID, SELFPAY | PROVIDERS: PCP Family Medicine; Referring Provider Family Medicine; Visit Provider Surgery | DX: Z93.1 Gastrostomy status (principal) | CPT/HCPCS: 43762 ==

== ENCOUNTER 2023-10-05 05:07 | Emergency (ER) | payer MEDICARE, MEDICAID, SELFPAY ==
[2023-10-05 04:51] VITALS: BP 111/93; PULSE 83; RESP 18; TEMP 36.6; O2SAT 94
--- NOTE | 2023-10-05 05:03 | ED.GENADUL_ITS ---
Discharge Plan Disposition Patient Disposition: Home Condition: Improving Discharge Details Chief Complaint: Urinary Clinical Impression: Wilkerson catheter problem Primary Care Provider: Henrik Mukherjee ED Provider: Pasquale Hardin Home Meds and New Rx's Prescriptions: No Action ipratropium-albuterol 0.5 mg-3 mg(2.5 mg base)/3 mL solution for nebulization 3 ml inhalation Q6H PRN Nutren 2.0 0.08 gram-2 kcal/mL liquid 240 ml feeding tube .COMPLEX Qty: 6000 0RF Rx Instructions: 240 mL via feeding tube 5 times a day; famotidine 20 mg tablet 40 mg PO DAILY polyethylene glycol 3350 [Miralax] 17 gram/dose powder See Rx Instructions PO DAILY PRN PRN Rx Instructions: 1 scoop MWF and addl PRN orally daily, as needed PRN; cyanocobalamin (vitamin B-12) 500 mcg tablet 1,000 mcg feeding tube DAILY Qty: 1 0RF magnesium hydroxide [Milk of Magnesia] 400 mg/5 mL Suspension 30 ml PO BID PRN PRN acetaminophen 325 mg Tablet 650 mg PO 6XD PRN (Reason: Fever) aspirin 81 mg Tablet,Chewable 81 mg PO DAILY cyanocobalamin (vitamin B-12) [Vitamin B-12] 500 mcg Tablet 1,000 mcg PO DAILY Qty: 0 0RF folic acid 1 mg Tablet 1 mg PO DAILY Qty: 0 0RF One Daily Multi-Vit w-Mineral 4.5 mg iron Tablet 1 tab PO DAILY@1000 Qty: 0 0RF diltiazem HCl [Cardizem] 60 mg Tablet 60 mg PO TID Qty: 0 0RF magnesium oxide 400 mg (241.3 mg magnesium) Tablet 400 mg NG DAILY Qty: 0 0RF silver sulfadiazine [Silvadene] 1 % Cream 25 g topical DAILY Qty: 0 0RF carbidopa-levodopa 25-250 mg Tablet 1 tab feeding tube QID@0700,1100,1600,2000 Qty: 30 0RF entacapone 200 mg Tablet 200 mg NG QID@0700,1100,1600,2000 Qty: 30 0RF amantadine HCl 50 mg/5 mL solution 100 mg PO TID Qty: 0 0RF benztropine 1 mg tablet 1 mg feeding tube DAILY Qty: 0 0RF Discharge Instructions Instructions: Wilkerson Catheter Placement and Care (ED) Medical Decision Making 78-year-old male presents with clogged suprapubic Wilkerson catheter. Wilkerson catheter exchanged at bedside. Draining well currently. No acute distress afebrile nontoxic. Likely resulting from sediment accumulation. HPI General Date/Time Provider Initiated Documentation: 10/05/23 05:10 . HPI Narrative: 78-year-old male presents referred in for evaluation of clogged suprapubic catheter. Related Data Home Medications Medication Instructions Recorded Confirmed acetaminophen 325 mg tablet 650 mg PO 6XD PRN Fever 11/25/22 09/20/23 aspirin 81 mg chewable tablet 81 mg PO DAILY 11/25/22 09/20/23 magnesium hydroxide 400 mg/5 mL 30 ml PO BID PRN PRN 11/25/22 09/20/23 oral suspension (Milk of Magnesia) cyanocobalamin (vitamin B-12) 500 1,000 mcg (2 x 500 mcg) PO DAILY 11/28/22 09/20/23 mcg tablet (Vitamin B-12) #0 tabs folic acid 1 mg tablet 1 mg PO DAILY #0 tabs 11/28/22 09/20/23 multivitamin with minerals-ferrous 1 tab PO DAILY@1000 #0 tabs 11/28/22 09/20/23 sulfate 4.5 mg iron tablet (One Daily Multivitamins with Minerals) diltiazem HCl 60 mg tablet 60 mg PO TID #0 tabs 12/23/22 09/20/23 (Cardizem) amantadine HCl 50 mg/5 mL oral 100 mg (10 mL) PO TID #0 mL 01/09/23 09/20/23 solution benztropine 1 mg tablet 1 mg feeding tube DAILY #0 tabs 01/09/23 09/20/23 carbidopa 25 mg-levodopa 250 mg 1 tab feeding tube 01/09/23 09/20/23 tablet QID@0700,1100,1600,1999 #30 tabs entacapone 200 mg tablet 200 mg NG QID@0700,1100,1600,2000 01/09/23 09/20/23 #30 tabs magnesium oxide 400 mg (241.3 mg 400 mg NG DAILY #0 tabs 01/09/23 09/20/23 magnesium) tablet silver sulfadiazine 1 % topical 25 g topical DAILY #0 grams 01/09/23 09/20/23 cream (Silvadene) nutritional supplements 0.08 240 ml feeding tube .COMPLEX 03/16/23 09/20/23 gram-2 kcal/mL liquid for tube #6,000 mL feed (Nutren 2.0) ipratropium 0.5 mg-albuterol 3 mg 3 ml inhalation Q6H PRN 05/24/23 09/20/23 (2.5 mg base)/3 mL nebulization soln cyanocobalamin (vitamin B-12) 500 1,000 mcg (2 x 500 mcg) feeding 07/27/23 09/20/23 mcg tablet tube DAILY #1 tab famotidine 20 mg tablet 40 mg PO DAILY 07/27/23 09/20/23 polyethylene glycol 3350 17 See Rx Instructions PO DAILY PRN 07/27/23 09/20/23 gram/dose oral powder (Miralax) PRN Previous Rx's Medication Instructions Recorded cyanocobalamin (vitamin B-12) 500 1,000 mcg (2 x 500 mcg) PO DAILY 11/28/22 mcg tablet (Vitamin B-12) #0 tabs folic acid 1 mg tablet 1 mg PO DAILY #0 tabs 11/28/22 multivitamin with minerals-ferrous 1 tab PO DAILY@1000 #0 tabs 11/28/22 sulfate 4.5 mg iron tablet (One Daily Multivitamins with Minerals) diltiazem HCl 60 mg tablet 60 mg PO TID #0 tabs 12/23/22 (Cardizem) amantadine HCl 50 mg/5 mL oral 100 mg (10 mL) PO TID #0 mL 01/09/23 solution benztropine 1 mg tablet 1 mg feeding tube DAILY #0 tabs 01/09/23 carbidopa 25 mg-levodopa 250 mg 1 tab feeding tube 01/09/23 tablet QID@0700,1100,1600,2000 #30 tabs entacapone 200 mg tablet 200 mg NG QID@0700,1100,1600,2000 01/09/23 #30 tabs magnesium oxide 400 mg (241.3 mg 400 mg NG DAILY #0 tabs 01/09/23 magnesium) tablet silver sulfadiazine 1 % topical 25 g topical DAILY #0 grams 01/09/23 cream (Silvadene) nutritional supplements 0.08 240 ml feeding tube .COMPLEX 03/16/23 gram-2 kcal/mL liquid for tube #6,000 mL feed (Nutren 2.0) cyanocobalamin (vitamin B-12) 500 1,000 mcg (2 x 500 mcg) feeding 07/27/23 mcg tablet tube DAILY #1 tab Allergies Allergy/AdvReac Type Severity Reaction Status Date / Time No Known Allergies Allergy Verified 09/20/23 10:35 General Stated Complaint: Urinary JEANETTE: 4 Review of Systems Narrative: Review of Systems Constitutional: negative Eyes: negative ENT: negative Cardiovascular: negative Respiratory: negative Gastrointestinal: negative : Suprapubic catheter clogged Musculoskeletal: negative Skin: negative Neurologic: negative Psych: negative PFSH All Active Problems (Updated 10/05/23 @ 05:15 by Pasquale Hardin MD) Wilkerson catheter problem (Acute) Gastrostomy in place (Acute) Recurrent UTI (Acute) Pneumonia (Acute) Schizoaffective disorder (Acute) Palliative care patient (Acute) Sacral decubitus ulcer (Acute) Oropharyngeal dysphagia (Acute) B12 deficiency (Acute) Folate deficiency (Acute) Dysphagia (Acute) PEG (percutaneous endoscopic gastrostomy) status (Acute) Advanced care planning/counseling discussion (Acute) Urinary retention (Acute) Medical History Acute kidney failure Recurrent postcoital urinary tract infection Bladder stones Other schizoaffective disorders On enteral nutrition Mass of thyroid gland Indwelling Wilkerson catheter present Communication deficit Unable to walk in -[facility] transfer Parkinsonism due to drugs Chronic kidney disease Parkinsons disease BPH (benign prostatic hyperplasia) Atrial fibrillation Hx of hyperlipidemia HTN (hypertension) Social History Smoking/Tobacco Use Status: Never Smoking risk assessment performed?: Yes Alcohol Intake: never Substance use type: does not use Housing: long term Additional Social history: P[facility]int live at the [facility] Exam Narrative Exam Narrative: Physical Examination General: alert, awake, cooperative, resting comfortably, no acute distress HEENT: normocephalic, atraumatic; PERRL, EOM intact, conjunctiva normal; no nasal discharge; moist mucous membranes, oral and pharyngeal mucosa normal, tolerating secretions Neck: supple, trachea midline; full ROM Chest: normal to inspection Respiratory: normal respiratory effort Cardiac: regular rate, regular rhythm, S1S2 intact, no murmurs rubs or gallops GI: abdomen soft, non-tender, non-distended; no palpable mass or hepatosplenomegaly : Wilkerson catheter in place, large amount of sediment Skin: no lesions, rashes or trauma appreciated Course Vital Signs Vital signs: Vital Signs Temperature 36.6 C 10/05/23 04:51 Pulse 83 10/05/23 04:51 Respiratory Rate 18 10/05/23 04:51 Blood Pressure 111/93 H 10/05/23 04:51 Pulse Oximetry 94 10/05/23 04:51 Temperature 36.6 C 10/05/23 04:51 Temperature Source Skin 10/05/23 04:51 Pulse 83 10/05/23 04:51 Respiratory Rate 18 10/05/23 04:51 Respiratory Effort Normal, Non-Labored 10/05/23 04:53 Blood Pressure 111/93 H 10/05/23 04:51 Pulse Oximetry 94 10/05/23 04:51 Oxygen Delivery Method Room Air 10/05/23 04:51 Oxygen Flow Rate 0 10/05/23 04:51
== END 2023-10-05 05:31 | disposition home or self-care (01) ==
LOC: ER 05:36
PROVIDERS: Emergency Provider Emergency Medicine; PCP Family Medicine
DX: T83.098A Other mechanical complication of other urinary catheter, initial encounter (principal); N40.1 Benign prostatic hyperplasia with lower urinary tract symptoms; G20.A1 Parkinson's disease without dyskinesia, without mention of fluctuations; I48.91 Unspecified atrial fibrillation; E78.5 Hyperlipidemia, unspecified; I10 Essential (primary) hypertension; Z93.1 Gastrostomy status; Z79.82 Long term (current) use of aspirin
CPT/HCPCS: 99283

== ENCOUNTER 2023-10-23 16:07 | Outpatient (REF) | payer MEDICARE, MEDICAID, SELFPAY ==
[2023-10-24 08:33] LABS: COVID-19 PCR Negative (Negative); Influenza A PCR Positive (Negative); Influenza B PCR Negative (Negative); RSV PCR Negative (Negative)
[2023-10-24 08:34] LABS: Source Nasopharynx
== END 2023-10-23 16:08 | disposition home or self-care (01) ==
LOC: LBN 16:07
PROVIDERS: PCP Family Medicine; Visit Provider Family Medicine
DX: R50.9 Fever, unspecified (principal); J11.1 Influenza due to unidentified influenza virus with other respiratory manifestations; Z20.822 Contact with and (suspected) exposure to COVID-19
CPT/HCPCS: 87637

== ENCOUNTER 2023-10-26 00:05 | Emergency (ER) | payer MEDICARE, MEDICAID, SELFPAY ==
[2023-10-26 00:09] VITALS: BP 116/68; PULSE 94; RESP 16; TEMP 36.3; O2SAT 93
--- NOTE | 2023-10-26 00:29 | ED.GENADUL_ITS ---
HPI General Mode of arrival: EMS . Date/Time Provider Initiated Documentation: 10/26/23 00:29 . Limitations to Documentation: altered mental status . Information obtained by: EMS . HPI Narrative: 78yo M with Parkinson's, PEG, nonverbal, chronic suprapubic cathether, presenting from nursing facility for nonfunctioning catheter. History from EMS. Otherwise in his usual state of health with no fever, rash, vomiting, irritability, or other concerns. Related Data Home Medications Medication Instructions Recorded Confirmed aspirin 81 mg chewable tablet 81 mg PO DAILY 11/25/22 10/19/23 magnesium hydroxide 400 mg/5 mL 30 ml PO BID PRN PRN 11/25/22 10/19/23 oral suspension (Milk of Magnesia) cyanocobalamin (vitamin B-12) 500 1,000 mcg (2 x 500 mcg) PO DAILY 11/28/22 10/19/23 mcg tablet (Vitamin B-12) #0 tabs folic acid 1 mg tablet 1 mg PO DAILY #0 tabs 11/28/22 10/19/23 multivitamin with minerals-ferrous 1 tab PO DAILY@1000 #0 tabs 11/28/22 10/19/23 sulfate 4.5 mg iron tablet (One Daily Multivitamins with Minerals) diltiazem HCl 60 mg tablet 60 mg PO TID #0 tabs 12/23/22 10/19/23 (Cardizem) amantadine HCl 50 mg/5 mL oral 100 mg (10 mL) PO TID #0 mL 01/09/23 10/19/23 solution benztropine 1 mg tablet 1 mg feeding tube DAILY #0 tabs 01/09/23 10/19/23 carbidopa 25 mg-levodopa 250 mg 1 tab feeding tube 01/09/23 10/19/23 tablet QID@0700,1100,1600,2000 #30 tabs entacapone 200 mg tablet 200 mg NG QID@0700,1100,1600,2000 01/09/23 10/19/23 #30 tabs magnesium oxide 400 mg (241.3 mg 400 mg NG DAILY #0 tabs 01/09/23 10/19/23 magnesium) tablet silver sulfadiazine 1 % topical 25 g topical DAILY #0 grams 01/09/23 10/19/23 cream (Silvadene) nutritional supplements 0.08 240 ml feeding tube .COMPLEX 03/16/23 10/19/23 gram-2 kcal/mL liquid for tube #6,000 mL feed (Nutren 2.0) ipratropium 0.5 mg-albuterol 3 mg 3 ml inhalation Q6H PRN 05/24/23 10/19/23 (2.5 mg base)/3 mL nebulization soln cyanocobalamin (vitamin B-12) 500 1,000 mcg (2 x 500 mcg) feeding 07/27/23 10/19/23 mcg tablet tube DAILY #1 tab famotidine 20 mg tablet 40 mg PO DAILY 07/27/23 10/19/23 polyethylene glycol 3350 17 See Rx Instructions PO DAILY PRN 07/27/23 10/19/23 gram/dose oral powder (Miralax) PRN acetaminophen 325 mg tablet 650 mg PO Q6H PRN Fever 10/19/23 10/19/23 Previous Rx's Medication Instructions Recorded cyanocobalamin (vitamin B-12) 500 1,000 mcg (2 x 500 mcg) PO DAILY 11/28/22 mcg tablet (Vitamin B-12) #0 tabs folic acid 1 mg tablet 1 mg PO DAILY #0 tabs 11/28/22 multivitamin with minerals-ferrous 1 tab PO DAILY@1000 #0 tabs 11/28/22 sulfate 4.5 mg iron tablet (One Daily Multivitamins with Minerals) diltiazem HCl 60 mg tablet 60 mg PO TID #0 tabs 12/23/22 (Cardizem) amantadine HCl 50 mg/5 mL oral 100 mg (10 mL) PO TID #0 mL 01/09/23 solution benztropine 1 mg tablet 1 mg feeding tube DAILY #0 tabs 01/09/23 carbidopa 25 mg-levodopa 250 mg 1 tab feeding tube 01/09/23 tablet QID@0700,1100,1600,1999 #30 tabs entacapone 200 mg tablet 200 mg NG QID@0700,1100,1600,2000 01/09/23 #30 tabs magnesium oxide 400 mg (241.3 mg 400 mg NG DAILY #0 tabs 01/09/23 magnesium) tablet silver sulfadiazine 1 % topical 25 g topical DAILY #0 grams 01/09/23 cream (Silvadene) nutritional supplements 0.08 240 ml feeding tube .COMPLEX 03/16/23 gram-2 kcal/mL liquid for tube #6,000 mL feed (Nutren 2.0) cyanocobalamin (vitamin B-12) 500 1,000 mcg (2 x 500 mcg) feeding 07/27/23 mcg tablet tube DAILY #1 tab Allergies Allergy/AdvReac Type Severity Reaction Status Date / Time No Known Allergies Allergy Verified 09/20/23 10:35 General Stated Complaint: Urinary JEANETTE: 3 Review of Systems Narrative: see HPI Exam Narrative Exam Narrative: General: Alert, in no acute distress. Head: Normocephalic, atraumatic Neck: Trachea midline, ?Neck supple. Cardiac: ?RRR, no murmurs appreciated Resp: No respiratory distress. CTAB. Abd: ?Soft, non-distended, nontender : ?No suprapubic tenderness. Course Vital Signs Vital signs: Vital Signs Temperature 36.3 C L 10/26/23 00:09 Pulse 94 H 10/26/23 00:09 Respiratory Rate 16 10/26/23 00:09 Blood Pressure 116/68 10/26/23 00:09 Pulse Oximetry 93 10/26/23 00:09 Temperature 36.3 C L 10/26/23 00:09 Temperature Source Skin 10/26/23 00:09 Pulse 94 H 10/26/23 00:09 Respiratory Rate 16 10/26/23 00:09 Respiratory Effort Normal 10/26/23 00:12 Blood Pressure 116/68 10/26/23 00:09 Blood Pressure Position Sitting 10/26/23 00:09 Pulse Oximetry 93 10/26/23 00:09 Oxygen Delivery Method Room Air 10/26/23 00:09 Oxygen Flow Rate 0 10/26/23 00:09 Medical Decision Making 78yo M with Parkinson's, PEG, nonverbal, chronic suprapubic cathether, presenting from nursing facility for nonfunctioning catheter. History from EMS. Otherwise in his usual state of health with no fever, rash, vomiting, irritability, or other concerns. Vital signs and physical exam reassuring. Catheter changed without complication, tolerated well. Dced back to facility. Quality:SDOH Health Related Social Needs: No Data to Display PFSH All Active Problems (Updated 10/26/23 @ 00:30 by Rut Scanlon MD) Blocked urinary catheter (Acute) Anemia (Chronic) Communication deficit (Acute) Unable to talk for about a year due to parkinsonism Suggest using squares of paper with yes and no written in large print with sara. Insist that patient hand correct answer. Test with known answers before hand. Parkinsons disease (Chronic) Wilkerson catheter problem (Acute) Gastrostomy in place (Acute) Recurrent UTI (Acute) Pneumonia (Acute) Schizoaffective disorder (Acute) Palliative care patient (Acute) Sacral decubitus ulcer (Acute) Oropharyngeal dysphagia (Acute) B12 deficiency (Acute) Folate deficiency (Acute) Dysphagia (Acute) PEG (percutaneous endoscopic gastrostomy) status (Acute) Advanced care planning/counseling discussion (Acute) Urinary retention (Acute) Medical History (Updated 10/26/23 @ 00:30 by Rut Scanlon MD) Acute kidney failure Recurrent postcoital urinary tract infection Bladder stones Other schizoaffective disorders On enteral nutrition Mass of thyroid gland Indwelling Wilkerson catheter present Unable to walk in -[facility] transfer Parkinsonism due to drugs Chronic kidney disease BPH (benign prostatic hyperplasia) Atrial fibrillation Hx of hyperlipidemia HTN (hypertension) Social History Smoking/Tobacco Use Status: Never Smoking risk assessment performed?: Yes Alcohol Intake: never Substance use type: does not use Housing: correction Additional Social history: Pateint live at the [facility] Discharge Plan Disposition Patient Disposition: Group Home Facility(SNF) Condition: Good Discharge Details Clinical Impression: Blocked urinary catheter Primary Care Provider: Henrik Mukherjee ED Provider: Rut Scanlon Home Meds and New Rx's Prescriptions: No Action ipratropium-albuterol 0.5 mg-3 mg(2.5 mg base)/3 mL solution for nebulization 3 ml inhalation Q6H PRN Nutren 2.0 0.08 gram-2 kcal/mL liquid 240 ml feeding tube .COMPLEX Qty: 6000 0RF Rx Instructions: 240 mL via feeding tube 5 times a day; famotidine 20 mg tablet 40 mg PO DAILY polyethylene glycol 3350 [Miralax] 17 gram/dose powder See Rx Instructions PO DAILY PRN PRN Rx Instructions: 1 scoop MWF and addl PRN orally daily, as needed PRN; cyanocobalamin (vitamin B-12) 500 mcg tablet 1,000 mcg feeding tube DAILY Qty: 1 0RF magnesium hydroxide [Milk of Magnesia] 400 mg/5 mL Suspension 30 ml PO BID PRN PRN aspirin 81 mg Tablet,Chewable 81 mg PO DAILY cyanocobalamin (vitamin B-12) [Vitamin B-12] 500 mcg Tablet 1,000 mcg PO DAILY Qty: 0 0RF folic acid 1 mg Tablet 1 mg PO DAILY Qty: 0 0RF One Daily Multi-Vit w-Mineral 4.5 mg iron Tablet 1 tab PO DAILY@1000 Qty: 0 0RF acetaminophen 325 mg tablet 650 mg PO Q6H PRN (Reason: Fever) diltiazem HCl [Cardizem] 60 mg Tablet 60 mg PO TID Qty: 0 0RF magnesium oxide 400 mg (241.3 mg magnesium) Tablet 400 mg NG DAILY Qty: 0 0RF silver sulfadiazine [Silvadene] 1 % Cream 25 g topical DAILY Qty: 0 0RF carbidopa-levodopa 25-250 mg Tablet 1 tab feeding tube QID@0700,1100,1600,2000 Qty: 30 0RF entacapone 200 mg Tablet 200 mg NG QID@0700,1100,1600,2000 Qty: 30 0RF amantadine HCl 50 mg/5 mL solution 100 mg PO TID Qty: 0 0RF benztropine 1 mg tablet 1 mg feeding tube DAILY Qty: 0 0RF Discharge Instructions Additional Instructions: Catheter was replaced. Continue to care for it as usual. Return to the emergency department for new or worsening symptoms. Discharge Data Discharge Date/Time-TO BE ENTERED AT DEPARTURE: 10/26/23 00:42
== END 2023-10-26 00:42 | disposition skilled nursing facility (03) ==
LOC: ER 01:53
PROVIDERS: Emergency Provider Student in an Organized Health Care Education/Training Program; PCP Family Medicine
DX: T83.098A Other mechanical complication of other urinary catheter, initial encounter (principal); I12.9 Hypertensive chronic kidney disease with stage 1 through stage 4 chronic kidney disease, or unspecified chronic kidney disease; N18.9 Chronic kidney disease, unspecified; I48.91 Unspecified atrial fibrillation; G20.A1 Parkinson's disease without dyskinesia, without mention of fluctuations; Z93.1 Gastrostomy status; Z79.82 Long term (current) use of aspirin
CPT/HCPCS: 51702; 99284

== ENCOUNTER 2023-11-03 19:06 | Outpatient (REF) | payer MEDICARE, MEDICAID, SELFPAY ==
[2023-11-03 18:21] LABS: Bilirubin Negative (Negative); Blood Trace-intact (Negative); Clarity Turbid (Clear); Glucose Negative (Negative); Ketones Negative (Negative); Leukocyte Esterase Large (Negative); Nitrite Positive (Negative); Specific Gravity 1.015 (1.005-1.025); Urobilinogen 0.2 mg/dL (Up to 0.2); pH >= 9.0 (5-8)
[2023-11-03 18:35] LABS: Bacteria Moderate HPF (Negative); Epithelial Cells Rare HPF (Negative); RBC 0-2 HPF (0-2); WBC >50 HPF (0-5)
[2023-11-03 18:38] LABS: C & S Indicated? C&S Done As Ordered; Casts Negative LPF (Negative); Crystals Moderate Amorphous HPF (Negative); Mucus Negative (Negative)
== END 2023-11-03 19:07 | disposition home or self-care (01) ==
LOC: LBN 19:06
PROVIDERS: PCP Family Medicine; Visit Provider Nurse Practitioner Adult Health
DX: R33.9 Retention of urine, unspecified (principal); R82.998 Other abnormal findings in urine
CPT/HCPCS: 87077; 81003; 81015; 87086; 87186

== ENCOUNTER 2024-01-09 21:30 | Inpatient (IN) | payer MEDICARE, MEDICAID, SELFPAY ==
[2024-01-09] VITALS (121 sets, daily range): BP systolic 107–138; BP diastolic 63–83; PULSE 89–105; RESP 11–31; TEMP 37; O2SAT 95
--- NOTE | 2024-01-09 21:15 | ED.GENADUL_ITS ---
Discharge Plan Disposition Patient Disposition: Admit to [facility] Discharge Details Clinical Impression: Sacral decubitus ulcer, Acute hypoxemic respiratory failure, Alkaline phosphatase elevation, Hypoalbuminemia, Aspiration pneumonia Primary Care Provider: Henrik Mukherjee ED Provider: Harsh [place] Meds and New Rx's Prescriptions: No Action ipratropium-albuterol 0.5 mg-3 mg(2.5 mg base)/3 mL solution for nebulization 3 ml inhalation Q6H PRN Nutren 2.0 0.08 gram-2 kcal/mL liquid 240 ml feeding tube .COMPLEX Qty: 6000 0RF Rx Instructions: 240 mL via feeding tube 5 times a day; famotidine 20 mg tablet 40 mg feeding tube DAILY polyethylene glycol 3350 [Miralax] 17 gram/dose powder See Rx Instructions PO DAILY PRN PRN Rx Instructions: 1 scoop MWF and addl PRN orally daily, as needed PRN; cyanocobalamin (vitamin B-12) 500 mcg tablet 1,000 mcg feeding tube DAILY Qty: 1 0RF amantadine HCl 50 mg/5 mL solution 100 mg feeding tube TID diltiazem HCl [Cardizem] 60 mg Tablet 60 mg feeding tube TID magnesium hydroxide [Milk of Magnesia] 400 mg/5 mL Suspension 30 ml PO BID PRN PRN aspirin 81 mg Tablet,Chewable 81 mg feeding tube DAILY One Daily Multi-Vit w-Mineral 4.5 mg iron Tablet 1 tab PO DAILY@1000 Qty: 0 0RF acetaminophen 325 mg tablet 650 mg feeding tube Q6H PRN (Reason: Fever) silver sulfadiazine [Silvadene] 1 % Cream 25 g topical DAILY Qty: 0 0RF carbidopa-levodopa 25-250 mg Tablet 1 tab feeding tube QID@0700,1100,1600,2000 Qty: 30 0RF entacapone 200 mg Tablet 200 mg NG QID@0700,1100,1600,2000 Qty: 30 0RF benztropine 1 mg tablet 1 mg feeding tube DAILY Qty: 0 0RF HPI General Date/Time Provider Initiated Documentation: 01/09/24 21:32 . HPI Narrative: MDM This is a tachycardic but normothermic 78-year-old male with concern for aspiration pneumonia in the setting of prehospital fever and new acute respiratory failure with hypoxia. Patient is a DNI DNR. He does have a suprapubic catheter in place which will change prior to sending urinalysis and urine culture. Will also plan on obtaining a portable chest x-ray. Given concern for sepsis and treated empirically with cefepime and vancomycin we will draw lactate and venous blood gas. No pain or proportion to suggest necrotizing soft tissue infection. Soft nontender abdomen so not concern for intra- abdominal process. Patient has not had any head strike so we will defer CT head. No chest pain to suggest ACS so I did not order a troponin. He is not hypotensive so I did not initiate pressors. He does have a sacral decubitus ulcer which was covered with the Mepilex dressing. Patient has 2 18-gauge IVs. He is not hypotensive. Given his normal blood pressure will initiate fluids with 500 cc crystalloid bolus. He is not on any outpatient steroids to suggest benefit from stress dose of steroids. Will swab for COVID and obtain MRSA swab. I considered CVA given the patient's acute mental status change however in the setting of fever with acute respiratory failure with hypoxia and gurgling respirations I felt that pneumonia was more likely so I did not obtain a CT scan. I considered meningitis however given the patient's respiratory status I felt that placing him in the left lateral decubitus position to obtain lumbar puncture might place the patient at increased risk for recurrent aspiration. Furthermore my suspicion for meningitis was lower than my suspicion for aspiration pneumonia. 10 PM Lactic acidosis mild at 1.8 mmol/L. Venous blood gas lacks acidemia and hypercarbia. CBC shows normocytic anemia slightly worse compared to prior. No leukocytosis. No thrombocytopenia. 10:15 PM Comprehensive metabolic panel showing mild anion gap mildly elevated BUN. Mildly elevated creatinine similar to prior. Mild elevation of alkaline phosphatase. Mild hypoalbuminemia. 10:24 PM I spoke with Dr. Miller who agreed graciously to accept the patient for hospitalization. Patient does not have an echo on file so we will begin judicious fluids with 500 cc crystalloid bolus. Will attempt to call the patient's guardian. In the event that there is a component of pain we will treat patient with 50 mcg of fentanyl. COVID influenza RSV all negative. I updated the patient's first emergency contact, his brother Sesar, by phone. I advised that the patient was in critical condition with acute respiratory failure and hypoxia. 10:38 PM Patient put out 400 cc of urine with new catheter. His urine in the catheter bag is quite dark. His heart rate is 94. Will provide an additional 500 cc of crystalloid. His urinalysis shows large nitrites large blood and large leuk esterase. Likely colonized but in the setting of his fever also concerning for the possibility of acute UTI. MRSA positive. Chronic conditions affecting the care of the patient: Recurrent UTIs Parkinson's disease and schizoaffective disorder History obtained from an outside historian: paramedics External record review: No [facility] EMR records Diagnostic interpretations performed by me: Per my independent interpretation chest x-ray shows: Increased right-sided lung markings Per my independent interpretation EKG shows: Narrow complex sinus tachycardia at a rate of 103. Left axis deviation. No signs of LVH. Intervals within normal limits. Low voltage in chest wall leads. Compared to prior dated last year low voltage is now present. No acute injury pattern. ]Medications: Antibiotic Social determinants of health affecting disposition: N/A Management discussed with: Hospitalist Treatment/interventions considered: N/A Response to therapies provided: Improved heart rate in the ED HPI This is a DNI DNR 78-year-old male G-tube dependent with recurrent UTIs and foy prapubic catheter arriving via paramedics in setting of acute mental status change at his halfway facility earlier this evening. Patient reportedly took his tube feeds this evening. At baseline he generally talks in his oriented to person place and time. He subsequently over the past hour became nonverbal after his tube feed. His temperature was elevated up to 103 ?F. He was reportedly gurgling. Unable to obtain additional history secondary to the patient's altered mental status. Exam General: Chronically ill with gurgling respirations. Head: Normocephalic, atraumatic. Eye: Extraocular eye movements intact. No conjunctival injection. No scleral icterus. Trace discharge adjacent to bilateral eyes. Ear, nose, mouth, throat: Grossly normal inspection. Handling secretions. Neck: Trachea midline. Cardiovascular: Well-perfused distal extremities. Rapid regular rate. Respiratory: Transmitted upper airway sounds. Diffuse coarse breath sounds. Gastrointestinal: Nondistended abdomen. Soft. Nontender. G-tube in place. Suprapubic catheter in place. Suprapubic catheter tube appears cloudy. Back: Stage II sacral decubitus ulcer. Musculoskeletal: No edema. Moving all 4 extremities spontaneously. Skin: Normal for age and race, grossly normal temperature and turgor. No acute rash. Neurologic: Alert. Groaning. Tracks with eyes. GCS: 13 - E4, V3, M6 Psychiatric: Mood and manner are appropriate. Grooming and personal hygiene are appropriate. Related Data Home Medications Medication Instructions Recorded Confirmed aspirin 81 mg chewable tablet 81 mg feeding tube DAILY 11/25/22 01/09/24 magnesium hydroxide 400 mg/5 mL 30 ml PO BID PRN PRN 11/25/22 01/09/24 oral suspension (Milk of Magnesia) multivitamin with minerals-ferrous 1 tab PO DAILY@1000 #0 tabs 11/28/22 01/09/24 sulfate 4.5 mg iron tablet (One Daily Multivitamins with Minerals) benztropine 1 mg tablet 1 mg feeding tube DAILY #0 tabs 01/09/23 01/09/24 carbidopa 25 mg-levodopa 250 mg 1 tab feeding tube 01/09/23 01/09/24 tablet QID@0700,1100,1600,1999 #30 tabs entacapone 200 mg tablet 200 mg NG QID@0700,1100,1600,2000 01/09/23 01/09/24 #30 tabs silver sulfadiazine 1 % topical 25 g topical DAILY #0 grams 01/09/23 01/09/24 cream (Silvadene) nutritional supplements 0.08 240 ml feeding tube .COMPLEX 03/16/23 01/09/24 gram-2 kcal/mL liquid for tube #6,000 mL feed (Nutren 2.0) ipratropium 0.5 mg-albuterol 3 mg 3 ml inhalation Q6H PRN 05/24/23 01/09/24 (2.5 mg base)/3 mL nebulization soln cyanocobalamin (vitamin B-12) 500 1,000 mcg (2 x 500 mcg) feeding 07/27/23 01/09/24 mcg tablet tube DAILY #1 tab famotidine 20 mg tablet 40 mg feeding tube DAILY 07/27/23 01/09/24 polyethylene glycol 3350 17 See Rx Instructions PO DAILY PRN 07/27/23 01/09/24 gram/dose oral powder (Miralax) PRN acetaminophen 325 mg tablet 650 mg feeding tube Q6H PRN Fever 10/19/23 01/09/24 amantadine HCl 50 mg/5 mL oral 100 mg feeding tube TID 01/09/24 01/09/24 solution diltiazem HCl 60 mg tablet 60 mg feeding tube TID 01/09/24 01/09/24 (Cardizem) Previous Rx's Medication Instructions Recorded multivitamin with minerals-ferrous 1 tab PO DAILY@1000 #0 tabs 11/28/22 sulfate 4.5 mg iron tablet (One Daily Multivitamins with Minerals) benztropine 1 mg tablet 1 mg feeding tube DAILY #0 tabs 01/09/23 carbidopa 25 mg-levodopa 250 mg 1 tab feeding tube 01/09/23 tablet QID@0700,1100,1599,1999 #30 tabs entacapone 200 mg tablet 200 mg NG QID@0700,1100,1600,199901/09/23 #30 tabs silver sulfadiazine 1 % topical 25 g topical DAILY #0 grams 01/09/23 cream (Silvadene) nutritional supplements 0.08 240 ml feeding tube .COMPLEX 03/16/23 gram-2 kcal/mL liquid for tube #6,000 mL feed (Nutren 2.0) cyanocobalamin (vitamin B-12) 500 1,000 mcg (2 x 500 mcg) feeding 07/27/23 mcg tablet tube DAILY #1 tab Allergies Allergy/AdvReac Type Severity Reaction Status Date / Time No Known Allergies Allergy Verified 01/09/24 22:19 General JEANETTE: 3 Medical Decision Making Quality:SDOH Health Related Social Needs: No Data to Display Critical Care Time Critical Care Time Critical Care Time: Yes Total Critical Care Time: 30 Attestation: Acute respiratory failure hypoxia PFSH All Active Problems (Updated 01/09/24 @ 22:17 by Harsh Pierce MD) Aspiration pneumonia (Acute) Hypoalbuminemia (Acute) Alkaline phosphatase elevation (Acute) Acute hypoxemic respiratory failure (Acute) Speech disorder (Acute) Anemia (Chronic) Communication deficit (Acute) Unable to talk for about a year due to parkinsonism Suggest using squares of paper with yes and no written in large print with sharpie. Insist that patient hand correct answer. Test with known answers before hand. Parkinsons disease (Chronic) Gastrostomy in place (Acute) Recurrent UTI (Acute) Pneumonia (Acute) Schizoaffective disorder (Acute) Palliative care patient (Acute) Sacral decubitus ulcer (Acute) Oropharyngeal dysphagia (Acute) B12 deficiency (Acute) Folate deficiency (Acute) Dysphagia (Acute) PEG (percutaneous endoscopic gastrostomy) status (Acute) Advanced care planning/counseling discussion (Acute) Urinary retention (Acute) Medical History (Updated 01/09/24 @ 22:17 by Harsh Pierce MD) Acute kidney failure Recurrent postcoital urinary tract infection Bladder stones Other schizoaffective disorders On enteral nutrition Mass of thyroid gland Indwelling Wilkerson catheter present Unable to walk in -[facility] transfer Parkinsonism due to drugs Chronic kidney disease BPH (benign prostatic hyperplasia) Atrial fibrillation Hx of hyperlipidemia HTN (hypertension) Social History Smoking/Tobacco Use Status: Never Smoking risk assessment performed?: Yes Alcohol Intake: never Substance use type: does not use Housing: [facility] Additional Social history: Pateint live at the [facility]
--- NOTE | 2024-01-09 21:30 | RT.EKG_ITS ---
APPROVED REPORT Exam: Resting ECG Reason for Exam: sob Patient Location: E HR:103 bpm ECG Measurements Heart Rate 103 AXIS KS 150 P 24 QRSd 91 QRS -31 QT 330 T 21 QTc 433 Conclusion Sinus tachycardia...rate> 99 Left axis deviation...QRS axis (-30,-90) Anterior infarct, old...Q >40mS, abnormal ST-T, V2-V5 Narrow complex sinus tachycardia at a rate of 103. Left axis deviation. No signs of LVH. Intervals within normal limits. Low voltage in chest wall leads. Compared to prior dated last year low voltag e is now present. No acute injury pattern.
--- NOTE | 2024-01-09 21:30 | DI.RAD_ITS ---
Exam(s) XR PORTABLE CHEST AP EXAM: XR PORTABLE CHEST AP CLINICAL HISTORY: Shortness of breath TECHNIQUE: 2D digital imaging was performed. COMPARISON: No exams were available for comparison FINDINGS: Exam limited by poor pulmonary inflation and under penetration.. Leads overlie the chest. LUNGS: Clear. No pleural abnormality seen. HEART: Normal size. AORTA: Tortuous. BONES: Unremarkable for age. Soft tissues: Unremarkable. IMPRESSION: No acute findings. DATA REPOSITORY: RADIATION DOSE DELIVERED:
[2024-01-09] MEDS: Ondansetron 4 MG/2 ML VIAL (21:37)
[2024-01-09 21:46] LABS: BE (Venous) -2 mmol/L (-2-3); HCO3 (Venous) 22 mmol/L (23-28); O2 Sat (Venous) 98 %; TCO2 (Venous) 21 mmol/L (24-29); pCO2 (Venous) 32 mmHg (41-51); pH (Venous) 7.45 (7.31-7.41); pO2 (Venous) 88 mmHg
[2024-01-09 21:47] LABS: Absolute Basophil Count 0.04 10^3/uL (0.0-0.2); Absolute Lymphocyte Count 0.65 10^3/uL (1.2-3.4); Absolute Monocyte Count 1.01 10^3/uL (0.1-0.8); Absolute Neutrophil Count 8.69 10^3/uL (1.2-6.7); Basophils % 0.4; HCT 30.7 % (40.0-50.0); HGB 9.7 g/dL (13.5-17.5); Lactate 1.8 mmol/L (0.6-1.4); Lymphocytes % 6.2; MCH 28.6 pg (27.0-33.0); MCHC 31.6 % (32.0-36.0); MCV 91 fL (80-95); MPV 9.5 fL (8.0-11.0); Monocytes % 9.6; Neutrophils % 82.8; Platelet Count 359 10^3/uL (130-400); RBC 3.39 10^6/uL (4.36-5.78); RDW 14.6 % (11.8-14.1); RDW-SD 48.6 fL; WBC 10.49 10^3/uL (4.4-10.8)
[2024-01-09] MEDS: Normal Saline 500 ML IV ×2 (22:00→22:51)
[2024-01-09 22:02] LABS: ALT 13 U/L (16-63); AST 19 U/L (15-37); Albumin 2.5 g/dL (3.4-5.0); Alkaline Phosphatase 160 U/L (46-116); Anion Gap 13.2 mmol/L (3-11); BUN 51 mg/dL (7-18); Bilirubin, Total 0.3 mg/dL (0.2-1.0); CO2 23.8 mmol/L (21.0-32.0); CREATININE 1.5 mg/dL (0.70-1.30); Chloride 100 mmol/L (98-107); Estimated GFR 47.95 (mL/min/1.73m2); Glucose 135 mg/dL (74-106); Potassium 3.9 mmol/L (3.5-5.1); Sodium 137 mmol/L (136-145); Total Protein 7.5 g/dL (6.4-8.2)
[2024-01-09 22:19] LABS: COVID-19 PCR Negative (Negative); Influenza A PCR Negative (Negative); Influenza B PCR Negative (Negative); RSV PCR Negative (Negative)
[2024-01-09 22:20] LABS: Source NASOPHARYNX
[2024-01-09 22:27] LABS: Bilirubin Negative (Negative); Blood Large (Negative); Clarity Cloudy (Clear); Glucose Negative (Negative); Ketones Negative (Negative); Leukocyte Esterase Large (Negative); Nitrite Positive (Negative); Urobilinogen 0.2 mg/dL (Up to 0.2); pH 8.5 (5-8)
[2024-01-09] MEDS: fentaNYL 100 MCG/2 ML VIAL 50 MCG IVP (22:29)
[2024-01-09] MEDS: CEFEPIME 1 GM in Normal Saline 50 ML IVPB (22:29)
[2024-01-09 22:32] LABS: C & S Indicated? C&S Done As Ordered; RBC >50 HPF (0-2)
--- NOTE | 2024-01-09 22:40 | DI.VRAD_ITS ---
PROCEDURE INFORMATION: Exam: XR Chest Exam date and time: 01/09/2024 10:09 PM Age: 78 years old Clinical indication: Shortness of breath; Patient HX: SOB TECHNIQUE: Imaging protocol: Radiologic exam of the chest. Views: 1 view. COMPARISON: CR XR PORTABLE CHEST AP 04/13/2023 8:52 AM FINDINGS: Tubes, catheters and devices: Monitoring wires noted. Lungs: Lung volumes are low. No consolidation. No vascular congestion. Pleural spaces: Unremarkable. No pleural effusion. No pneumothorax. Heart/Mediastinum: Unremarkable. No cardiomegaly. Bones/joints: Unremarkable. IMPRESSION: No acute cardiopulmonary abnormality. Dictated and Authenticated by: Max Geiger MD. Ordering:CALVIN House MD
[2024-01-09] MEDS: VANCOMYCIN 1,500 MG in Normal Saline 500 ML 250 MG IVPB (23:02)
[2024-01-09 23:04] LABS: MRSA PCR Positive (Negative)
[2024-01-09] MEDS: Scopolamine 1 MG/3 DAYS PATCH TD (23:31)
[2024-01-10] VITALS (53 sets, daily range): BP systolic 84–132; BP diastolic 53–91; PULSE 75–106; RESP 11–25; TEMP 36.6–38.6; O2SAT 93–100
[2024-01-10 00:56] LABS: Lactate 1.3 mmol/L (0.6-1.4)
--- NOTE | 2024-01-10 00:57 | W.PM.HP.N ---
Date of service: 01/10/24 Time of Service: 00:57 Assessment and Plan Assessment and plan (1) Aspiration pneumonia: Status: Acute Assessment and plan: History and lung exam strongly suggest aspiration pneumonia/pneumonitis. CXR is not revealing, but I think we are obliged to treat based on his clinical findings. MRSA swab positive, will continue MRSA coverage. Given SNF is a risk factor for psuedomonas he was also given cefepime, will continue this combination for now. Try to get sputum culture. (2) Acute hypoxemic respiratory failure: Status: Acute Assessment and plan: Stabilized in the ED, no stable on nasal cannula, continue to monitor. (3) Parkinsons disease: Status: Chronic Assessment and plan: Continue outpatient therapies (4) Gastrostomy in place: Status: Acute Assessment and plan: Tube looks okay. Holding feeds for now as this episode started right after feeding. (5) Recurrent UTI: Status: Acute Assessment and plan: Given his history and the high fever at the [facility], I think reasonable to cover UTI. Cefepime is good coverage with culture pending. (6) Sacral decubitus ulcer: Status: Acute (7) DVT prophylaxis: Status: Acute Assessment and plan: LMWH (8) [place] (acute kidney injury): Status: Resolved Assessment and plan: Cr up slightly above baseline catheter is draining, may be related to acute illness. Will give moderate fluids while holding tube feeds. Follow. History of Present Illness History of Present Illness Chief Complaint: aspiration, respiratory distress Narrative: 78 yo M who is resident of [facility] with a history of parkinsonism, schizoaffective disorder, suprapubic catheter for bladder outlet obstruction, dysphagia with PEG tube in place, and chronic minamally verbal who was sent over from rehab after acutely developing respiratory distress and then fever after a feeding. The patient was in his baseline state of health and had his routine tube feed the evening prior to admission. He started gurling and had a temperature up to 103. He stopped communicating (he is minimally verbal but is able to communicate with some words and a board). History is per report due to patient's mental status. PEG tube placed 01/05. He continues to loose weight despite tube feeds per palliative care note. He wants to eat but hasn't been able to work with speech therapy to work on swallow and we have no report that he was given food orally prior to presentation. Of note, he is bedbound at baseline and the sacral decubitus ulcer is chronic. Review of Systems Narrative: Limited by mental status; Patient indicates no when asked if he is in pain, including asking about different parts of his body. Respiratory Respiratory: Reports cough and Denies hemoptysis Gastrointestinal Gastrointestinal: Denies diarrhea and Denies vomiting Neurologic Neurologic: Denies localized weakness and Denies seizure-like activity PFSH All Active Problems (Updated 01/10/24 @ 01:19 by Harsh Miller) DVT prophylaxis (Acute) Aspiration pneumonia (Acute) Hypoalbuminemia (Acute) Alkaline phosphatase elevation (Acute) Acute hypoxemic respiratory failure (Acute) Speech disorder (Acute) Anemia (Chronic) Communication deficit (Acute) Unable to talk for about a year due to parkinsonism Suggest using squares of paper with yes and no written in large print with sharpie. Insist that patient hand correct answer. Test with known answers before hand. Parkinsons disease (Chronic) Gastrostomy in place (Acute) Recurrent UTI (Acute) Pneumonia (Acute) Schizoaffective disorder (Acute) Palliative care patient (Acute) Sacral decubitus ulcer (Acute) Oropharyngeal dysphagia (Acute) B12 deficiency (Acute) Folate deficiency (Acute) Dysphagia (Acute) PEG (percutaneous endoscopic gastrostomy) status (Acute) Advanced care planning/counseling discussion (Acute) Urinary retention (Acute) Medical History Acute kidney failure Recurrent postcoital urinary tract infection Bladder stones Other schizoaffective disorders On enteral nutrition Mass of thyroid gland Indwelling Wilkerson catheter present Unable to walk in -[facility] transfer Parkinsonism due to drugs Chronic kidney disease BPH (benign prostatic hyperplasia) Atrial fibrillation Hx of hyperlipidemia HTN (hypertension) Social History Smoking/Tobacco Use Status: Never Smoking risk assessment performed?: Yes Alcohol Intake: never Substance use type: does not use Housing: jail Additional Social history: Pateint live at the [facility] Meds Allergies and Home Medications Allergies Allergy/AdvReac Type Severity Reaction Status Date / Time No Known Allergies Allergy Verified 01/09/24 22:19 Home Medications Medication Instructions Recorded Confirmed Type aspirin 81 mg chewable tablet 81 mg feeding tube DAILY 11/25/22 01/09/24 History magnesium hydroxide 400 mg/5 mL 30 ml PO BID PRN PRN 11/25/22 01/09/24 History oral suspension (Milk of Magnesia) multivitamin with minerals-ferrous 1 tab PO DAILY@1000 #0 tabs 11/28/22 01/09/24 Rx sulfate 4.5 mg iron tablet (One Daily Multivitamins with Minerals) benztropine 1 mg tablet 1 mg feeding tube DAILY #0 tabs 01/09/23 01/09/24 Rx carbidopa 25 mg-levodopa 250 mg 1 tab feeding tube 01/09/23 01/09/24 Rx tablet QID@0700,1100,1600,1999 #30 tabs entacapone 200 mg tablet 200 mg NG QID@0700,1100,1600,2000 01/09/23 01/09/24 Rx #30 tabs silver sulfadiazine 1 % topical 25 g topical DAILY #0 grams 01/09/23 01/09/24 Rx cream (Silvadene) nutritional supplements 0.08 240 ml feeding tube .COMPLEX 03/16/23 01/09/24 Rx gram-2 kcal/mL liquid for tube #6,000 mL feed (Nutren 2.0) ipratropium 0.5 mg-albuterol 3 mg 3 ml inhalation Q6H PRN 05/24/23 01/09/24 History (2.5 mg base)/3 mL nebulization soln cyanocobalamin (vitamin B-12) 500 1,000 mcg (2 x 500 mcg) feeding 07/27/23 01/09/24 Rx mcg tablet tube DAILY #1 tab famotidine 20 mg tablet 40 mg feeding tube DAILY 07/27/23 01/09/24 History polyethylene glycol 3350 17 See Rx Instructions PO DAILY PRN 07/27/23 01/09/24 History gram/dose oral powder (Miralax) PRN acetaminophen 325 mg tablet 650 mg feeding tube Q6H PRN Fever 10/19/23 01/09/24 History amantadine HCl 50 mg/5 mL oral 100 mg feeding tube TID 01/09/24 01/09/24 History solution diltiazem HCl 60 mg tablet 60 mg feeding tube TID 01/09/24 01/09/24 History (Cardizem) Exam Narrative Exam Narrative: GEN: Lying in bed, stiff appearing, grunting intermittently. He does respond to some direct questions, opens eyes. Unable to give history. Appears chronically ill and uncomfortable. HEENT: Head atraumatic. Conjunctiva clear, no icterus. PEERL. no rhinorrhea. MMM, OP benign. Neck is stiff, but simila to all muscle tone. No masses or lymphadenopathy, trachea midline LUNGS: Inspiratory rales 1/2-2/3 up bilateral lung leon, expiratory grunting diffusely. Mildly tachypeniec CV: RRR with no murmurs, gallops, or rubs. ABD: +BS, soft, NT/ND, no masses. EXT: no cyanosis, clubbing, or edema MSK: No joint redness or swelling NEURO: CN 2-12 grossly intact. Normal movement of 4 extremities. Normal speech and coordination SKIN: No rashes. red partially stage 2 pressure sore on mid sacrum. surrounding skin minimally erytematous, no clear exudate (zinc cream is on the sore).. PSYCH: flat, difficult to assess, though he does respond to voice Results Imaging Chest x-ray: report reviewed (No acute cardiopulmonary abnormality. ) EKG: report reviewed (arrow complex sinus tachycardia at a rate of 103. Left axis deviation. No signs of LVH. Intervals within normal limits. Low voltage in chest wall leads. Compared to prior dated last year low voltage is now present. No acute injury pattern.) Labs 01/09/24 21:39 01/09/24 21:39 Labs: Laboratory Results - last 24 hr 01/09/24 01/09/24 01/09/24 21:35 21:39 22:10 WBC 10.49 RBC 3.39 L Hgb 9.7 L Hct 30.7 L MCV 91 MCH 28.6 MCHC 31.6 L RDW 14.6 H Plt Count 359 MPV 9.5 Immature Gran % 1.0 Neutrophils % 82.8 Lymphocytes % 6.2 Monocytes % 9.6 Eosinophils % 0.0 Basophils % 0.4 Nucleated RBC % 0.0 Absolute Neutrophils 8.69 H Absolute Lymphocytes 0.65 L Absolute Monocytes 1.01 H Absolute Eosinophils 0.00 Absolute Basophils 0.04 VBG pH 7.45 H VBG pCO2 32 L VBG pO2 88 VBG HCO3 22 L VBG Total CO2 21 L VBG O2 Saturation 98 VBG Base Excess -2 VBG Lactate 1.8 H Sodium 137 Potassium 3.9 Chloride 100 Carbon Dioxide 23.8 Anion Gap 13.2 H BUN 51 H Creatinine 1.5 H Est GFR (CKD-EPI 2020) 47.95 Glucose 135 H Calcium 9.0 Total Bilirubin 0.3 AST 19 ALT 13 L Alkaline Phosphatase 160 H Total Protein 7.5 Albumin 2.5 L Urine Color Red Urine Clarity Cloudy Urine pH 8.5 H Ur Specific Anderson 1.020 Urine Protein >=300 H Urine Ketones Negative Urine Blood Large H Urine Nitrite Positive H Urine Bilirubin Negative Urine Urobilinogen 0.2 Ur Leukocyte Esterase Large H Urine RBC >50 H Urine WBC Ur Epithelial Cells Not Applicable Urine Crystals Not Applicable Urine Bacteria Urine Mucus Not Applicable Ur Culture Indicated? C&S Done As Ordered Urine Glucose Negative COVID-19 Source NASOPHARYNX SARS-CoV-2 (PCR) Negative Influenza Type A (PCR) Negative Influenza Type B (PCR) Negative RSV (PCR) Negative MRSA (TEM-PCR) Positive A Last Vital Signs Temp 36.7 C 01/10/24 00:24 Pulse 88 01/10/24 00:24 Resp 20 01/10/24 00:24 BP 124/85 01/10/24 00:01 Pulse Ox 96 01/10/24 00:24 Time Spent Time spent with Patient: 55-74 minutes Time was spent: preparing to see the patient(eg.review tests), obtaining and/or reviewing separately otained hiistory, ordering medications,tests, procedures, referring, communicating with other health healthcare corporate account director, indepentently interpreting results and counseling the patient
[2024-01-10 03:32] LABS: Abs Immature Grans 0.05 10^3/uL (0.0-0.06); Absolute Basophil Count 0.03 10^3/uL (0.0-0.2); Absolute Eosinophil Count 0.05 10^3/uL (0.0-0.7); Absolute Lymphocyte Count 1.08 10^3/uL (1.2-3.4); Absolute Monocyte Count 0.85 10^3/uL (0.1-0.8); Absolute Neutrophil Count 6.26 10^3/uL (1.2-6.7); Basophils % 0.4; Eosinophils % 0.6; HCT 28.1 % (40.0-50.0); HGB 8.8 g/dL (13.5-17.5); Immature Grans % 0.6; MCH 28.8 pg (27.0-33.0); MCHC 31.3 % (32.0-36.0); MCV 92 fL (80-95); MPV 9.6 fL (8.0-11.0); Monocytes % 10.2; Neutrophils % 75.2; Platelet Count 287 10^3/uL (130-400); RBC 3.06 10^6/uL (4.36-5.78); RDW 14.6 % (11.8-14.1); RDW-SD 49.4 fL; WBC 8.32 10^3/uL (4.4-10.8)
[2024-01-10 03:41] LABS: Anion Gap 8.7 mmol/L (3-11); BUN 46 mg/dL (7-18); CO2 25.3 mmol/L (21.0-32.0); CREATININE 1.4 mg/dL (0.70-1.30); Calcium 8.6 mg/dL (8.5-10.1); Chloride 104 mmol/L (98-107); Estimated GFR 52.09 (mL/min/1.73m2); Glucose 96 mg/dL (74-106); Potassium 4.3 mmol/L (3.5-5.1); Sodium 138 mmol/L (136-145)
[2024-01-10] MEDS: Normal Saline Flush 10 ML SYR IVP ×2 (03:54→09:24)
[2024-01-10] MEDS: POTASSIUM CHLORIDE/D5-0.45NACL 1,000 ML 120 MEQ IV (04:35)
[2024-01-10] MEDS: CEFEPIME 1 GM in Normal Saline 50 ML IVPB ×3 (05:56→21:53)
[2024-01-10] MEDS: ACETAMINOPHEN 1,000 MG/100 ML BTL 400 MG IVPB (08:17)
--- NOTE | 2024-01-10 08:26 | W.PC.ACHO ---
Registration Status: ADM IN Primary Language: Preferred Language: ED Information & Data Chief Complaint RespSymp 01/09/24 21:38 Chief Complaint RespSymp 01/09/24 21:27 Triage Note 1 hr ago pt mental status 01/09/24 21:27 change after tube feeding, it was reported to this nurse by EMS that normally he talks and is ax0x3, now nonverbal 1 hr after tube feed, temp at facility 103 f , gurgling with breathing, apap 1 hr ago Medical / Surgical History (Last Reviewed 01/10/24 @ 01:09 by Harsh Milelr) Acute kidney failure Recurrent postcoital urinary tract infection Bladder stones Other schizoaffective disorders On enteral nutrition Mass of thyroid gland Indwelling Wilkerson catheter present Unable to walk Parkinsonism due to drugs Chronic kidney disease BPH (benign prostatic hyperplasia) Atrial fibrillation Hx of hyperlipidemia HTN (hypertension) Most Recent Vital Signs Temperature 38.6 C H 01/10/24 08:17 Temperature Source Temporal Artery Scan 01/10/24 00:30 Pulse 104 H 01/10/24 08:01 Pulse 103 H 01/10/24 08:01 Respiratory Rate 15 01/10/24 08:01 Respiratory Effort Labored, Grunting 01/09/24 21:39 Respiratory Depth Normal 01/10/24 00:30 Respiratory Pattern Normal 01/10/24 00:30 Blood Pressure 96/63 L 01/10/24 08:01 Blood Pressure Mean 73 01/10/24 08:01 Blood Pressure Position Supine 01/10/24 00:30 Pulse Oximetry 96 01/10/24 08:01 Oxygen Delivery Method Room Air 01/10/24 01:50 Oxygen Flow Rate 0 01/10/24 01:50 Pain Level 8 01/09/24 21:27 Allergies No Known Allergies Allergy (Verified 01/09/24 22:19) Active Medications Generic Name Dose Route Start Last Admin Trade Name Freq PRN Reason Stop Dose Admin Cefepime HCl 1 gm/ Sodium 50 mls @ 100 mls/hr 01/10/24 06:00 01/10/24 05:56 Chloride IVPB 100 mls/hr Q8H TIFFANI Administration Acetaminophen 1,000 mg in 100 mls @ 400 mls/hr 01/10/24 06:59 01/10/24 08:17 Ofirmev IVPB 400 mls/hr Q8H PRN PRN Administration Sodium Chloride 0 ml 01/09/24 21:32 01/10/24 03:54 Normal Saline Flush 10 Ml Syr IVP 20 ml PRN PRN Administration IV IV Catheter Type [Right Hand] Peripheral IV IV Catheter Type [Right Saline Lock Antecubital] IV Catheter Type [Left Wrist] Peripheral IV IV Catheter Gauge [Right Hand] 20 IV Catheter Gauge [Right 18 Antecubital] IV Catheter Gauge [Left Wrist] 18 Diet Orders Category Date Time Status Nothing Per Oral [DIET] Nutrition 01/10/24 Breakfast Active Diagnostics 01/10/24 01/10/24 01/10/24 Range/Units 09:00 03:18 00:45 WBC 8.32 (4.4-10.8) 10^3/uL RBC 3.06 L (4.36-5.78) 10^6/uL Hgb 8.8 L (13.5-17.5) g/dL Hct 28.1 L (40.0-50.0) % MCV 92 (80-95) fL MCH 28.8 (27.0-33.0) pg MCHC 31.3 L (32.0-36.0) % RDW 14.6 H (11.8-14.1) % Plt Count 287 (130-400) 10^3/uL MPV 9.6 (8.0-11.0) fL Immature Gran % 0.6 Neutrophils % 75.2 Lymphocytes % 13.0 Monocytes % 10.2 Eosinophils % 0.6 Basophils % 0.4 Nucleated RBC % 0.0 (0.0-0.3) % Absolute Neutrophils 6.26 (1.2-6.7) 10^3/uL Absolute Lymphocytes 1.08 L (1.2-3.4) 10^3/uL Absolute Monocytes 0.85 H (0.1-0.8) 10^3/uL Absolute Eosinophils 0.05 (0.0-0.7) 10^3/uL Absolute Basophils 0.03 (0.0-0.2) 10^3/uL VBG pH (7.31-7.41) VBG pCO2 (41-51) mmHg VBG pO2 mmHg VBG HCO3 (23-28) mmol/L VBG Total CO2 (24-29) mmol/L VBG O2 Saturation % VBG Base Excess (-2-3) mmol/L VBG Lactate 1.0 1.3 (0.6-1.4) mmol/L Sodium 138 (136-145) mmol/L Potassium 4.3 (3.5-5.1) mmol/L Chloride 104 (98-107) mmol/L Carbon Dioxide 25.3 (21.0-32.0) mmol/L Anion Gap 8.7 (3-11) mmol/L BUN 46 H (7-18) mg/dL Creatinine 1.4 H (0.70-1.30) mg/dL Est GFR (CKD-EPI 2020) 52.09 (mL/min/1.73m2) Glucose 96 (74-106) mg/dL Calcium 8.6 (8.5-10.1) mg/dL Total Bilirubin (0.2-1.0) mg/dL AST (15-37) U/L ALT (16-63) U/L Alkaline Phosphatase (46-116) U/L Total Protein (6.4-8.2) g/dL Albumin (3.4-5.0) g/dL Urine Color (Yellow) Urine Clarity (Clear) Urine pH (5-8) Ur Specific [place] (1.005-1.025) Urine Protein (Neg-Trace) mg/dL Urine Ketones (Negative) mg/dL Urine Blood (Negative) Urine Nitrite (Negative) Urine Bilirubin (Negative) Urine Urobilinogen (Up to 0.2) mg/dL Ur Leukocyte Esterase (Negative) Urine RBC (0-2) HPF Urine WBC (0-5) HPF Ur Epithelial Cells Urine Crystals Urine Bacteria (Negative) HPF Urine Mucus Ur Culture Indicated? Urine Glucose (Negative) mg/dL Random Vancomycin Pending COVID-19 Source SARS-CoV-2 (PCR) (Negative) Influenza Type A (PCR) (Negative) Influenza Type B (PCR) (Negative) RSV (PCR) (Negative) MRSA (TEM-PCR) (Negative) 01/09/24 01/09/24 01/09/24 Range/Units 22:10 21:39 21:35 WBC 10.49 (4.4-10.8) 10^3/uL RBC 3.39 L (4.36-5.78) 10^6/uL Hgb 9.7 L (13.5-17.5) g/dL Hct 30.7 L (40.0-50.0) % MCV 91 (80-95) fL MCH 28.6 (27.0-33.0) pg MCHC 31.6 L (32.0-36.0) % RDW 14.6 H (11.8-14.1) % Plt Count 359 (130-400) 10^3/uL MPV 9.5 (8.0-11.0) fL Immature Gran % 1.0 Neutrophils % 82.8 Lymphocytes % 6.2 Monocytes % 9.6 Eosinophils % 0.0 Basophils % 0.4 Nucleated RBC % 0.0 (0.0-0.3) % Absolute Neutrophils 8.69 H (1.2-6.7) 10^3/uL Absolute Lymphocytes 0.65 L (1.2-3.4) 10^3/uL Absolute Monocytes 1.01 H (0.1-0.8) 10^3/uL Absolute Eosinophils 0.00 (0.0-0.7) 10^3/uL Absolute Basophils 0.04 (0.0-0.2) 10^3/uL VBG pH 7.45 H (7.31-7.41) VBG pCO2 32 L (41-51) mmHg VBG pO2 88 mmHg VBG HCO3 22 L (23-28) mmol/L VBG Total CO2 21 L (24-29) mmol/L VBG O2 Saturation 98 % VBG Base Excess -2 (-2-3) mmol/L VBG Lactate 1.8 H (0.6-1.4) mmol/L Sodium 137 (136-145) mmol/L Potassium 3.9 (3.5-5.1) mmol/L Chloride 100 (98-107) mmol/L Carbon Dioxide 23.8 (21.0-32.0) mmol/L Anion Gap 13.2 H (3-11) mmol/L BUN 51 H (7-18) mg/dL Creatinine 1.5 H (0.70-1.30) mg/dL Est GFR (CKD-EPI 2020) 47.95 (mL/min/1.73m2) Glucose 135 H (74-106) mg/dL Calcium 9.0 (8.5-10.1) mg/dL Total Bilirubin 0.3 (0.2-1.0) mg/dL AST 19 (15-37) U/L ALT 13 L (16-63) U/L Alkaline Phosphatase 160 H (46-116) U/L Total Protein 7.5 (6.4-8.2) g/dL Albumin 2.5 L (3.4-5.0) g/dL Urine Color Red (Yellow) Urine Clarity Cloudy (Clear) Urine pH 8.5 H (5-8) Ur Specific [place] 1.020 (1.005-1.025) Urine Protein >=300 H (Neg-Trace) mg/dL Urine Ketones Negative (Negative) mg/dL Urine Blood Large H (Negative) Urine Nitrite Positive H (Negative) Urine Bilirubin Negative (Negative) Urine Urobilinogen 0.2 (Up to 0.2) mg/dL Ur Leukocyte Esterase Large H (Negative) Urine RBC >50 H (0-2) HPF Urine WBC (0-5) HPF Ur Epithelial Cells Not Applicable Urine Crystals Not Applicable Urine Bacteria (Negative) HPF Urine Mucus Not Applicable Ur Culture Indicated? C&S Done As Ordered Urine Glucose Negative (Negative) mg/dL Random Vancomycin COVID-19 Source NASOPHARYNX SARS-CoV-2 (PCR) Negative (Negative) Influenza Type A (PCR) Negative (Negative) Influenza Type B (PCR) Negative (Negative) RSV (PCR) Negative (Negative) MRSA (TEM-PCR) Positive A (Negative) 01/09/24 22:10 Urine Culture - Pending Urine - Subrapubic 01/09/24 21:40 Blood Culture - Pending Blood 01/09/24 21:34 Blood Culture - Pending Blood Intake and Output - 24 Hour Total 01/09/24 21:13 thru 01/10/24 05:45 Intake Total 1550 Output Total 1100 Balance 450 Weight 91.4 kg Intake: IV 1550 Output: Urine 1100 Other: Urine Color Dark [employer] Urine Appearance Sediment Mucous Threads Hematuria Clots Urinary Catheter Urinary Catheter Date of 01/09/24 Insertion [Suprapubic] Time of insertion [Suprapubic] 21:47 Falls Risk Assessment History of Falls No History 01/10/24 00:30 Contributing Factors Confusion 01/10/24 00:30 Ambulatory Aids Uses ambulatory device + 01/10/24 00:30 Tubes/Lines With any additional score 01/10/24 00:30 Gait Evaluation W/any additional score 01/10/24 00:30 Cognition Cognitive impairment 01/10/24 00:30 Fall Total Score 88 01/10/24 00:30 Level of Risk Maximum Risk 01/10/24 00:30 Problems (Last Reviewed 01/10/24 @ 01:09 by Harsh Miller) DVT prophylaxis (Acute) Aspiration pneumonia (Acute) Hypoalbuminemia (Acute) Alkaline phosphatase elevation (Acute) Acute hypoxemic respiratory failure (Acute) Parkinsons disease (Chronic) Gastrostomy in place (Acute) Recurrent UTI (Acute) Sacral decubitus ulcer (Acute) v v v v v v v v v Sending and/or Receiving Nurses: Please use comment section below to note any information pertinent to the patient hand-off not included above. Information / Comments: Report received from: Justin Rodarte RN all questions answered: yes
[2024-01-10] MEDS: Lactated Ringers 1,000 ML 150 ML IV ×2 (09:00→16:26)
--- NOTE | 2024-01-10 09:20 | PGE_ITS ---
Date of Service Date of service: 01/10/24 Time of Service: 09:20 Assessment and Plan Assessment and plan (1) Sepsis: Status: Acute Assessment and plan: Seems that the precipitating event was an episode of aspiration due to his dysphagia. There is been no reported oral feedings. According the family the alf is trying to do feedings due to limited availability of BAG LO[employer]ACHINE [employer]PER[employer] support at the alf. All of his feedings are now given through his gastrostomy tube. Initially was reported that he had an aspiration pneumonia however his chest x-ray is not showing any infiltrates and has been weaned off of oxygen therefore I do not think the source of sepsis is from an aspiration event although it was likely the cause of his acute hypoxemic respiratory failure. Patient remains febrile this morning. He has no open sores for source of infection his urinalysis is highly suspicious for UTI though given that he has a suprapubic catheter he is prone to colonization. At this point I would continue current regimen of cefepime and vancomycin pending the results of his urine and blood cultures. Sputum culture has been ordered but he is not really coughing up any purulent sputum. He is not requiring any supplemental oxygen. DuoNebs have been ordered for respiratory support to help improve atelectasis. His MRSA swab was positive therefore I would continue the vancomycin until we get the results of his blood and urine cultures. At this point he does not require vasopressors. His mean arterial pressures above 70. I would continue aggressive IV fluid hydration and correct any electrolyte abnormalities and monitor his urine output along with daily labs. He remains on medical/surgical floor status even though he is currently in the intensive care unit. As he is hemodynamically stable and not requiring oxygen I would continue the current level support. His CODE STATUS remains DNR/DNI. I will initiate tube feedings and start him on some Reglan. Professional time spent interviewing and examining patient, discussion of goals of care with hospital team (care management, nursing and consulting professionals) was 60 minutes. Qualifiers: Sepsis type: sepsis due to unspecified organism Sepsis acute organ dysfunction status: with acute organ dysfunction Severe sepsis acute organ dysfunction type: acute renal failure Severe sepsis shock status: without septic shock Acute renal failure type: unspecified Qualified Code(s): A41.9 - Sepsis, unspecified organism; R65.20 - Severe sepsis without septic shock; N17.9 - Acute kidney failure, unspecified (2) Recurrent UTI: Status: Acute (3) Acute hypoxemic respiratory failure: Status: Acute (4) Aspiration pneumonia: Status: Suspected Qualifiers: Laterality: unspecified laterality Lung location: unspecified part of lung Aspiration pneumonia type: due to vomit Qualified Code(s): J69.0 - Pneumonitis due to inhalation of food and vomit (5) [place] (acute kidney injury): Status: Resolved Assessment and plan: Monitor renal output monitor daily BMP avoid nephrotoxins such as NSAIDs. Avoid hypotension. (6) Parkinsons disease: Status: Chronic Assessment and plan: Continue outpatient therapies Qualifiers: Dyskinesia presence: unspecified whether dyskinesia Fluctuating manifestations: unspecified whether manifestations fluctuate Qualified Code(s): G20.A1 - Parkinson's disease without dyskinesia, without mention of fluctuations (7) Gastrostomy in place: Status: Acute (8) Urinary retention: Status: Chronic Assessment and plan: Patient has suprapubic catheter in place which was changed last night (9) Sacral decubitus ulcer: Status: Acute Qualifiers: Pressure injury stage: stage 1 Qualified Code(s): L89.151 - Pressure ulcer of sacral region, stage 1 (10) Schizoaffective disorder: Status: Acute Assessment and plan: Not currently on any antipsychotics. Qualifiers: Schizoaffective disorder type: unspecified Qualified Code(s): F25.9 - Schizoaffective disorder, unspecified (11) DVT prophylaxis: Status: Acute Assessment and plan: LMWH Subjective Subjective Interval history since last seen: 78-year-old white male resident of [facility] with a history of schizoaffective disorder, parkinsonism, chronic bladder outlet obstruction requiring suprapubic catheter, and dysphagia requiring PEG tube who at baseline is minimally verbal at baseline who was sent over from SNF to the ED for acute respiratory distress after one of his enteral feedings. Patient has not been getting any oral feedings for some time d/t his severe dysphagia. Patient presented w/ criteria for sepsis (fever, tachycardic, tachypneic, hypoxic and w/ [place] and elevated lactic acid). Workup in the ED included changing his SPC, sending urine and blood cultures, giving IV fluids and beginning broad spectrum antibiotics including cefepime and vancomycin. His MRSA screen is +. CXR did not show any acute cardiopulmonary findings, Fluvid was negative for SARS-COV2, RSV and influenza. Patient was given 500 mL NS bolus in the E.D. and hospitalist put him on D5 1/2NS + 20 meq KCl @ 120 mL/hr. His urine output has been adequate overnight at 700 mL from 11 pm to 7 am (about 90 mL/hr). UA c/w UTI. Patient has not required any vasopressors overnight. This morning he is more alert, responsive, nods yes/no to questions, opens his eyes and smiles at his family. Exam Narrative Exam Narrative: Elderly white male who initially had his eyes closed but when I called his name he opened his eyes looked a nod yes and no to mouth words for me. He denies any pain and denies any acute dyspnea. Does not appear to be in any acute respiratory distress respirations nonlabored no accessory respiratory muscle use currently on room air 97% O2 saturation Mucous membranes are dry Neck veins are flat supple nontender neck muscles Lungs with some coarse breath sounds at the bases upper airway sounds clear Heart is regular no appreciable murmur rub or gallop Abdomen nondistended normal bowel sounds PEG tube is in place there is no breakdown of the skin around the PEG tube Extremities seems to be very stiff in his extremities but there is no evidence of open sores over his feet ankles knees or arms. Skin over his sacrum shows some mild erythema just a pink discoloration there is appearance of it healing ulcer over the sacrum that this point looks to be very superficial and nearly healed Objective Last Vital Signs Temp 38.6 C H 01/10/24 08:17 Pulse 104 H 01/10/24 08:01 Resp 20 01/10/24 08:30 BP 96/63 L 01/10/24 08:01 Pulse Ox 96 01/10/24 08:30 Laboratory Results - last 24 hr 01/09/24 01/09/24 01/09/24 21:35 21:39 22:10 WBC 10.49 RBC 3.39 L Hgb 9.7 L Hct 30.7 L MCV 91 MCH 28.6 MCHC 31.6 L RDW 14.6 H Plt Count 359 MPV 9.5 Immature Gran % 1.0 Neutrophils % 82.8 Lymphocytes % 6.2 Monocytes % 9.6 Eosinophils % 0.0 Basophils % 0.4 Nucleated RBC % 0.0 Absolute Neutrophils 8.69 H Absolute Lymphocytes 0.65 L Absolute Monocytes 1.01 H Absolute Eosinophils 0.00 Absolute Basophils 0.04 VBG pH 7.45 H VBG pCO2 32 L VBG pO2 88 VBG HCO3 22 L VBG Total CO2 21 L VBG O2 Saturation 98 VBG Base Excess -2 VBG Lactate 1.8 H Sodium 137 Potassium 3.9 Chloride 100 Carbon Dioxide 23.8 Anion Gap 13.2 H BUN 51 H Creatinine 1.5 H Est GFR (CKD-EPI 2020) 47.95 Glucose 135 H Calcium 9.0 Total Bilirubin 0.3 AST 19 ALT 13 L Alkaline Phosphatase 160 H Total Protein 7.5 Albumin 2.5 L Urine Color Red Urine Clarity Cloudy Urine pH 8.5 H Ur Specific Elysian 1.020 Urine Protein >=300 H Urine Ketones Negative Urine Blood Large H Urine Nitrite Positive H Urine Bilirubin Negative Urine Urobilinogen 0.2 Ur Leukocyte Esterase Large H Urine RBC >50 H Urine WBC Ur Epithelial Cells Not Applicable Urine Crystals Not Applicable Urine Bacteria Urine Mucus Not Applicable Ur Culture Indicated? C&S Done As Ordered Urine Glucose Negative COVID-19 Source NASOPHARYNX SARS-CoV-2 (PCR) Negative Influenza Type A (PCR) Negative Influenza Type B (PCR) Negative RSV (PCR) Negative MRSA (TEM-PCR) Positive A 01/10/24 01/10/24 00:45 03:18 WBC 8.32 RBC 3.06 L Hgb 8.8 L Hct 28.1 L MCV 92 MCH 28.8 MCHC 31.3 L RDW 14.6 H Plt Count 287 MPV 9.6 Immature Gran % 0.6 Neutrophils % 75.2 Lymphocytes % 13.0 Monocytes % 10.2 Eosinophils % 0.6 Basophils % 0.4 Nucleated RBC % 0.0 Absolute Neutrophils 6.26 Absolute Lymphocytes 1.08 L Absolute Monocytes 0.85 H Absolute Eosinophils 0.05 Absolute Basophils 0.03 VBG pH VBG pCO2 VBG pO2 VBG HCO3 VBG Total CO2 VBG O2 Saturation VBG Base Excess VBG Lactate 1.3 1.0 Sodium 138 Potassium 4.3 Chloride 104 Carbon Dioxide 25.3 Anion Gap 8.7 BUN 46 H Creatinine 1.4 H Est GFR (CKD-EPI 2020) 52.09 Glucose 96 Calcium 8.6 Total Bilirubin AST ALT Alkaline Phosphatase Total Protein Albumin Urine Color Urine Clarity Urine pH Ur Specific Elysian Urine Protein Urine Ketones Urine Blood Urine Nitrite Urine Bilirubin Urine Urobilinogen Ur Leukocyte Esterase Urine RBC Urine WBC Ur Epithelial Cells Urine Crystals Urine Bacteria Urine Mucus Ur Culture Indicated? Urine Glucose COVID-19 Source SARS-CoV-2 (PCR) Influenza Type A (PCR) Influenza Type B (PCR) RSV (PCR) MRSA (TEM-PCR) Time Spent with Patient Time Spent with Patient: >50 minutes Time was spent: preparing to see the patient(eg.review tests), ordering medications,tests, procedures, referring, communicating with other health childcare center director, indepentently interpreting results, counseling the patient (Counseling his family including his brother and his sister) and care coordination
[2024-01-10] MEDS: Multivitamin w/Minerals TAB 1 TAB NG (09:23)
[2024-01-10] MEDS: Famotidine 20 MG TAB 40 MG NG (09:23)
[2024-01-10] MEDS: Enoxaparin 40 MG/0.4 ML SYR SC (09:24)
[2024-01-10] MEDS: Cyanocobalamin 500 MCG TAB 1000 MCG NG (09:24)
[2024-01-10] MEDS: Benztropine 1 MG TAB NG (09:24)
[2024-01-10] MEDS: Aspirin 81 MG CHEW NG (09:24)
--- NOTE | 2024-01-10 09:39 | PDOC.CMIN ---
Date of service: 01/10/24 Time of Service: 09:39 Care Management Initial Assmt Initial Assessment REASON FOR HOSPITALIZATION:: Aspiration Pneumonia PREVIOUS FUNCTIONAL STATUS/SOCIAL/FAMILY SUPPORTS:: Resides at [facility], noted to be total care at this time, requires close monitoring for wound care. PEG tube as well as pleasure feeds and small amounts of liquid. CURRENT FUNCTIONAL STATUS:: Cesario was sitting up in his chair, in his room in the ICU. ADVANCE DIRECTIVES:: AD, COLST Has patient been provided with info about the portal/API?: No Did the patient sign up for the portal?: No CODE STATUS:: DNR/DNI INSURANCE COVERAGE / FINANCIAL ISSUES:: Medicare, Medicaid CURRENT HOME/COMMUNITY SERVICES/EQUIPMENT:: Care facility; [facility], Palliative Care PRIMARY CARE PHYSICIAN:: Henrik Mukherjee POTENTIAL DISCHARGE NEEDS:: Coordinated return to [facility] PATIENT/FAMILY EDUCATION NEEDS:: Review discharge instructions, discuss Ask Me Three. ANTICIPATED BARRIERS TO DISCHARGE:: None identified. TRANSPORTATION:: EMS PLAN:: Cesario will return to [facility] when ready per MD, the facility will manage his further care needs. CM continues to follow. PFSH All Active Problems (Updated 01/10/24 @ 10:06 by Dann Rey MD) Sepsis (Acute) DVT prophylaxis (Acute) Hypoalbuminemia (Acute) Alkaline phosphatase elevation (Acute) Acute hypoxemic respiratory failure (Acute) Speech disorder (Acute) Anemia (Chronic) Communication deficit (Acute) Unable to talk for about a year due to parkinsonism Suggest using squares of paper with yes and no written in large print with sharpie. Insist that patient hand correct answer. Test with known answers before hand. Parkinsons disease (Chronic) Gastrostomy in place (Acute) Recurrent UTI (Acute) Pneumonia (Acute) Schizoaffective disorder (Acute) Palliative care patient (Acute) Sacral decubitus ulcer (Acute) Oropharyngeal dysphagia (Acute) B12 deficiency (Acute) Folate deficiency (Acute) Dysphagia (Acute) PEG (percutaneous endoscopic gastrostomy) status (Acute) Advanced care planning/counseling discussion (Acute) Urinary retention (Chronic) Medical History Acute kidney failure Recurrent postcoital urinary tract infection Bladder stones Other schizoaffective disorders On enteral nutrition Mass of thyroid gland Indwelling Wilkerson catheter present Unable to walk in -Margo transfer Parkinsonism due to drugs Chronic kidney disease BPH (benign prostatic hyperplasia) Atrial fibrillation Hx of hyperlipidemia HTN (hypertension) Social History Smoking/Tobacco Use Status: Never Smoking risk assessment performed?: Yes Alcohol Intake: never Substance use type: does not use Housing: half-way Additional Social history: Pateint live at the [facility] SDOH(Care Management) Screening Will the Patient Participate in the Screening?: Unable to obtain
[2024-01-10 09:46] LABS: Vancomycin, Random 11.7 ug/mL
[2024-01-10 11:13] LABS: Lab Add On Test DONE
--- NOTE | 2024-01-10 11:31 | W.NUTCONSULT ---
Date of service: 01/10/24 Time of Service: 11:31 Nutritional Consult ASSESSMENT: Pt is a 78yo male admitted from SNF next door for aspiration PNA following an event last evening after his evening feeding. Currently receives all his nutrition via g-tube and is bed-bound with stage II sacral ulcer. His weight and height history is inconsistent most likely due to being bed-bound. His documented height has fluctuated by 5 inches over the past year and his weight history shows 8.3kg wt loss ovber the last 9 months, but a 4.6kg gain over the last 6 months. Documentation supports no fluid accumulation that might be a factor. Pt receiving MVI and Mineral supplement. Estimated energy needs: 2000kcals (using median of REE calculated with low and high end of height range x 1.2 activity factor), 91-110g protein (1-1.2g per kg) and 2000mL fluid (1mL per required kcal). NUTRITIONAL DIAGNOSIS: Swallowing difficulty as related to current degree of dysphagia, as evidenced by requiring enteral feeding to meet 100% of his nutrition needs. INTERVENTION: Recommend Nutren 2.0 formula @ 42mL run continuously over 24 hours for better toleration. This rate provides 2016 kcals (meets 100% of estimated needs), and 81g protein (meets 89% of estimated protein needs), and 698mL fluid (meets 35% of estimated fluid needs). Water flushes of 150mL q 4 hours provides another 900mL of fluid for a total of 1598mL fluid) - IV fluids prn will contribute a majority of the remaining fluid needs. MONITORING AND EVALUATION: Will monitor labs, weights and communicate with nursing for any indication for adjustments. Time Spent in Nutritional Counseling and Treatment: 15 minutes
[2024-01-10 11:51] LABS: Procalcitonin < 0.1 ng/mL
--- NOTE | 2024-01-10 14:28 | CHAPLAIN ---
Cesario is a patient from [facility]. He didn't speak to me, but seems to take in everything said to him. He had his fingers in his mouth because he is experiencing pain in his teeth, his nurse explained. His family was in earlier today suggested he might like watching the [employer] TV station. I found a [place] station, but not a [employer] station, for him. I will continue to visit.
--- NOTE | 2024-01-10 15:31 | PHA.REVIEW2 ---
Pharmacy Admission Review Admission Clinical Review Admission Pharmacy Review: Sepsis (Acute) DVT prophylaxis (Acute) Hypoalbuminemia (Acute) Alkaline phosphatase elevation (Acute) Acute hypoxemic respiratory failure (Acute) Gastrostomy in place (Acute) Recurrent UTI (Acute) Schizoaffective disorder (Acute) Sacral decubitus ulcer (Acute) No Known Allergies Allergy (Verified 01/09/24 22:19) Resuscitation Status DNR/DNI Height 6 ft 1 in Weight 91.4 kg Pharmacy Admission Review Renal Dosing Renal Dosing: BUN 46 mg/dL (7-18) H 01/10/24 03:18 Creatinine 1.4 mg/dL (0.70-1.30) H 01/10/24 03:18 Medications needing adjustments: Reviewed (CrCl 58 mL/min, BUN decreased from 51 to 46 and SCr decreased from 1.5 to 1.4) List of meds needing interventions: Current medications are okay Anticoagulation Anticoagulation: Hgb 8.8 g/dL (13.5-17.5) L 01/10/24 03:18 Hct 28.1 % (40.0-50.0) L 01/10/24 03:18 Plt Count 287 10^3/uL (130-400) 01/10/24 03:18 Creatinine 1.4 mg/dL (0.70-1.30) H 01/10/24 03:18 DVT Prophylaxis: Reviewed Medications: Enoxaparin (40mg daily) Relevant Labs Relevant Labs: Sodium 138 mmol/L (136-145) 01/10/24 03:18 Potassium 4.3 mmol/L (3.5-5.1) 01/10/24 03:18 Chloride 104 mmol/L (98-107) 01/10/24 03:18 Electrolytes, C-Reactive P, ESR: Reviewed (Hgb decreased from 9.7 to 8.8) Cardiac Review Cardiac Review: Blood Pressure 99/67 1401 Blood Pressure 92/68 1311 Blood Pressure 84/53 1201 Blood Pressure 89/67 1101 Blood Pressure 95/71 1023 Blood Pressure 102/66 1020 Blood Pressure 96/63 0801 Blood Pressure 110/64 0601 Blood Pressure 130/78 0532 BP, HR, EF%: Reviewed (BP 99/67, HR WNL) QTc Review QTc: Reviewed (433 from 01/09/24) IV to PO Switch IV Medications: Reviewed (Patient has PEG tube) Home Meds Home Med List reviewed: Reviewed Relevent Home Meds Not ordered & why?: Silvadene cream Baclofen - not on home med list but recently filled, per nursing patient is unable to communicate at this time as to whether or not he is taking it. Current Meds Current Medication Order Review: Intervened Comments: Spoke with nursing about medication administration, patient has PEG tube. Checked medications and looks like all can be crushed. Patient received a scopolamine patch last night while in the ED. No order was placed for continuation. Reached out to provider to see if he wanted to put in an order or if I should add a patch removal for the . Waiting on response. Pharmacy Antibiotic Review Relevant Labs: Relevant Labs 01/10/24 08:55 Procalcitonin < 0.1 Comments: Patient is on cefepime and vancomycin day 1. Random vancomycin level 11.7 at 0855 today. Vancomcyin dosed at 1250mg q24h with predicted AUC of 485 and trough of 14.7. Blood culture pending, urine culture growing Proteus species, MRSA swab positive. Patient had a temperature of 38.6 today at 0817.
[2024-01-10] MEDS: Acetaminophen 325 MG TAB 650 MG NG (16:34)
[2024-01-10] MEDS: Lactated Ringers 1,000 ML 100 ML IV (22:03)
[2024-01-11] VITALS (17 sets, daily range): BP systolic 83–115; BP diastolic 52–73; PULSE 75–96; RESP 10–29; TEMP 37; O2SAT 93–96
[2024-01-11] MEDS: CEFEPIME 1 GM in Normal Saline 50 ML IVPB (05:49)
[2024-01-11 06:43] LABS: Abs Immature Grans 0.04 10^3/uL (0.0-0.06); Absolute Basophil Count 0.02 10^3/uL (0.0-0.2); Absolute Eosinophil Count 0.19 10^3/uL (0.0-0.7); Absolute Lymphocyte Count 0.85 10^3/uL (1.2-3.4); Absolute Monocyte Count 0.81 10^3/uL (0.1-0.8); Absolute Neutrophil Count 4.11 10^3/uL (1.2-6.7); Basophils % 0.3; Eosinophils % 3.2; HCT 24.1 % (40.0-50.0); HGB 7.7 g/dL (13.5-17.5); Immature Grans % 0.7; Lymphocytes % 14.1; MCH 29.1 pg (27.0-33.0); MCV 91 fL (80-95); MPV 9.8 fL (8.0-11.0); Monocytes % 13.5; Neutrophils % 68.2; Platelet Count 284 10^3/uL (130-400); RBC 2.65 10^6/uL (4.36-5.78); RDW 14.3 % (11.8-14.1); RDW-SD 47.8 fL; WBC 6.02 10^3/uL (4.4-10.8)
[2024-01-11 06:52] LABS: Anion Gap 11.1 mmol/L (3-11); BUN 33 mg/dL (7-18); CO2 23.9 mmol/L (21.0-32.0); CREATININE 1.1 mg/dL (0.70-1.30); Calcium 8.5 mg/dL (8.5-10.1); Chloride 107 mmol/L (98-107); Estimated GFR 69.57 (mL/min/1.73m2); Glucose 110 mg/dL (74-106); Sodium 142 mmol/L (136-145)
[2024-01-11 07:23] LABS: RBC Morphology Normal
[2024-01-11] MEDS: dilTIAZem 60 MG TAB NG (08:45)
[2024-01-11] MEDS: Aspirin 81 MG CHEW NG (08:45)
[2024-01-11] MEDS: Cyanocobalamin 500 MCG TAB 1000 MCG NG (08:45)
[2024-01-11] MEDS: Benztropine 1 MG TAB NG (08:46)
[2024-01-11] MEDS: Famotidine 20 MG TAB 40 MG NG (08:46)
[2024-01-11] MEDS: Normal Saline Flush 10 ML SYR IVP ×2 (08:47→19:12)
[2024-01-11] MEDS: Lactated Ringers 1,000 ML 100 ML IV ×2 (09:20→20:36)
[2024-01-11] MEDS: Multivitamin w/Minerals TAB 1 TAB NG (10:13)
[2024-01-11] MEDS: Enoxaparin 40 MG/0.4 ML SYR SC (10:13)
--- NOTE | 2024-01-11 13:02 | W.PM.PROGNOT ---
Date of Service Date of service: 01/11/24 Time of Service: 13:02 Assessment and Plan Assessment and plan (1) Sepsis: Status: Acute Assessment and plan: Source appears to be urinay w/ Proteus in his urine, sensitive to all cephalopsporins. will change cefepime to Ceftriaxone 2 gm daily. He has not required any vasopressors. He has been on med/surg status since admission although he remains in the ICU. I told nursing that if a bed opens up on med/surg, he can be transferred out to the floor. I anticipate one more day of iv antibiotics and then he can return to the SNF. Blood cultures have been no growth at 24 hours. If they remain no growth tomorrow, then I think he can be switched to enteral antibiotics. He seems to be tolerating his tube feeds (Nutren 2.0 continuous at 42 mL/hr). Qualifiers: Sepsis type: sepsis due to unspecified organism Sepsis acute organ dysfunction status: with acute organ dysfunction Severe sepsis acute organ dysfunction type: acute renal failure Acute renal failure type: unspecified Severe sepsis shock status: without septic shock Qualified Code(s): A41.9 - Sepsis, unspecified organism; R65.20 - Severe sepsis without septic shock; N17.9 - Acute kidney failure, unspecified (2) Recurrent UTI: Status: Acute Assessment and plan: Proteus in his urine sensitive to cephalosporins. Now on cefepime d#2, will switch to Rocephin 2 gm daily. (3) Acute hypoxemic respiratory failure: Status: Acute Assessment and plan: reportedly aspiration event but no pneumonic consolidation was seen on his CXR and he remains on room air. He very well may have had an aspiration event but he has not been getting any oral feedings and so far he is tolerationg his tube feedings. (4) Aspiration pneumonia: Status: Suspected Assessment and plan: no pneumonic consolidation seen on CXR and he remains on room air w/ SPO2 96 TO 98%. Qualifiers: Aspiration pneumonia type: due to vomit Laterality: unspecified laterality Lung location: unspecified part of lung Qualified Code(s): J69.0 - Pneumonitis due to inhalation of food and vomit (5) [place] (acute kidney injury): Status: Resolved Assessment and plan: renal function has recovered. UO 1600 to 1700 mL per day. BUN down to 33 (from high of 51) and creatinine down to 1.1 from high of 1.5. Will dc iv fluids but will give additional fluids via his g tube. (6) Parkinsons disease: Status: Chronic Assessment and plan: Continue outpatient therapies Qualifiers: Dyskinesia presence: unspecified whether dyskinesia Fluctuating manifestations: unspecified whether manifestations fluctuate Qualified Code(s): G20.A1 - Parkinson's disease without dyskinesia, without mention of fluctuations (7) Gastrostomy in place: Status: Acute (8) Urinary retention: Status: Chronic Assessment and plan: Patient has suprapubic catheter in place which was changed last night (9) Sacral decubitus ulcer: Status: Acute Assessment and plan: continue local wound care, skin intact, nursing using Mepilex and off loading of pressure by frequent turns from side to side Qualifiers: Pressure injury stage: stage 1 Qualified Code(s): L89.151 - Pressure ulcer of sacral region, stage 1 (10) Schizoaffective disorder: Status: Acute Assessment and plan: Not currently on any antipsychotics. Qualifiers: Schizoaffective disorder type: unspecified Qualified Code(s): F25.9 - Schizoaffective disorder, unspecified (11) DVT prophylaxis: Status: Acute Assessment and plan: LMWH Subjective Subjective Interval history since last seen: Patient is more alert, responsive today. He is sitting up in bed watching TV. He denies any discomfort although he is nonverbal. He just nods yes or no to my questions. Exam Narrative Exam Narrative: Cesario is alert, oriented to person, responds yes/no w/ nods of his head and seems to be appropriate responses Lungs: clear anteriorly Heart: RRR Abdomen: soft, nontender Extremities: no cyanosis or edema. Objective Last Vital Signs Temp 37.1 C 01/10/24 19:56 Pulse 79 01/11/24 12:31 Resp 22 01/11/24 12:31 BP 95/58 L 01/11/24 12:31 Pulse Ox 96 01/11/24 12:31 Laboratory Results - last 24 hr 01/11/24 05:45 WBC 6.02 RBC 2.65 L Hgb 7.7 L Hct 24.1 L MCV 91 MCH 29.1 MCHC 32.0 RDW 14.3 H Plt Count 284 MPV 9.8 Immature Gran % 0.7 Neutrophils % 68.2 Lymphocytes % 14.1 Monocytes % 13.5 Eosinophils % 3.2 Basophils % 0.3 Nucleated RBC % 0.0 Absolute Neutrophils 4.11 Absolute Lymphocytes 0.85 L Absolute Monocytes 0.81 H Absolute Eosinophils 0.19 Absolute Basophils 0.02 RBC Morphology Normal Sodium 142 Potassium 4.0 Chloride 107 Carbon Dioxide 23.9 Anion Gap 11.1 H BUN 33 H Creatinine 1.1 Est GFR (CKD-EPI 2020) 69.57 Glucose 110 H Calcium 8.5 Time Spent with Patient Time Spent with Patient: 25-34 minutes Time was spent: preparing to see the patient(eg.review tests), ordering medications,tests, procedures, referring, communicating with other health care transitions manager, indepentently interpreting results and care coordination
[2024-01-11] MEDS: cefTRIAXone 2 GM/50 ML BAG IVPB (14:00)
--- NOTE | 2024-01-11 15:03 | PDOC.CMDIS ---
Date of service: 01/11/24 Time of Service: 15:04 Care Management Discharge Plan Reason for Hospitalization: Aspiration Pneumonia SDOH Health Related Social Needs: Health related social needs details Pt currently resides at [facility]. Health related social needs details: Pt currently resides at the [facility].
--- NOTE | 2024-01-11 15:13 | CMPROGNOTE_ITS ---
Date of service: 01/11/24 Time of Service: 15:14 Care Management Progress Note Progress Note Text Progress Note Text: S/O: Cesario was sitting up in his chair, appearing much more alert. Per MD Cesario may be ready for discharge as soon as tomorrow; CM updated [facility] to review discharge considerations and continues to follow. A: 78 year old male admitted to [facility] 01/09/24 for Aspiration Pneumonia P: Cesario will return to [facility], via the facility's wheelchair van, where his care needs will continue to be managed. He will continue to be closely followed by Palliative Care as well-CM continues to follow. SDOH(Care Management) Screening Will the Patient Participate in the Screening?: Unable to obtain Health Related Social Needs Health related social needs details: Pt currently resides at the [facility].
[2024-01-11] MEDS: Acetaminophen 325 MG TAB 650 MG NG (15:41)
[2024-01-11] MEDS: dilTIAZem 60 MG TAB 30 MG NG (19:11)
[2024-01-11] MEDS: Mupirocin 2% Oint. 22 GM TUBE TP (19:30)
[2024-01-12 01:00] VITALS: BP 118/71; PULSE 85; RESP 20; TEMP 36.9; O2SAT 97
[2024-01-12] MEDS: Lactated Ringers 1,000 ML 100 ML IV (05:30)
[2024-01-12 06:59] LABS: Abs Immature Grans 0.03 10^3/uL (0.0-0.06); Absolute Basophil Count 0.02 10^3/uL (0.0-0.2); Absolute Eosinophil Count 0.15 10^3/uL (0.0-0.7); Absolute Lymphocyte Count 0.77 10^3/uL (1.2-3.4); Absolute Monocyte Count 0.61 10^3/uL (0.1-0.8); Absolute Neutrophil Count 3.25 10^3/uL (1.2-6.7); Basophils % 0.4; Eosinophils % 3.1; HCT 25.7 % (40.0-50.0); HGB 8.1 g/dL (13.5-17.5); Immature Grans % 0.6; Lymphocytes % 15.9; MCH 27.9 pg (27.0-33.0); MCHC 31.5 % (32.0-36.0); MCV 89 fL (80-95); MPV 9.8 fL (8.0-11.0); Monocytes % 12.6; Neutrophils % 67.4; Platelet Count 304 10^3/uL (130-400); RDW-SD 45.6 fL; WBC 4.83 10^3/uL (4.4-10.8)
[2024-01-12 07:22] LABS: Iron 16 ug/dL (65-175); Total Iron Binding Capacity 186 ug/dL (250-450); Transferrin Sat 9 % (20-55)
[2024-01-12 07:27] LABS: Anion Gap 9.3 mmol/L (3-11); BUN 24 mg/dL (7-18); CO2 25.7 mmol/L (21.0-32.0); Calcium 8.5 mg/dL (8.5-10.1); Chloride 105 mmol/L (98-107); Ferritin 124 ng/mL (26-388); Glucose 116 mg/dL (74-106); Potassium 4.1 mmol/L (3.5-5.1); Sodium 140 mmol/L (136-145)
[2024-01-12 08:09] VITALS: BP 127/86; PULSE 73; RESP 18; TEMP 36.7; O2SAT 94
[2024-01-12] MEDS: Famotidine 20 MG TAB 40 MG NG (08:58)
[2024-01-12] MEDS: Multivitamin w/Minerals TAB 1 TAB NG (08:58)
[2024-01-12] MEDS: Cyanocobalamin 500 MCG TAB 1000 MCG NG (08:58)
[2024-01-12] MEDS: Aspirin 81 MG CHEW NG (08:58)
[2024-01-12] MEDS: Benztropine 1 MG TAB NG (08:58)
[2024-01-12] MEDS: Enoxaparin 40 MG/0.4 ML SYR SC (08:59)
[2024-01-12] MEDS: Mupirocin 2% Oint. 22 GM TUBE TP ×3 (08:59→21:43)
[2024-01-12] MEDS: dilTIAZem 60 MG TAB 30 MG NG ×3 (08:59→21:00)
[2024-01-12] MEDS: Normal Saline Flush 10 ML SYR IVP ×2 (09:00→21:01)
[2024-01-12] MEDS: Polyethylene Glycol 3350 17 GM PACKET NG (11:26)
--- NOTE | 2024-01-12 12:30 | DI.RAD_ITS ---
Exam(s) XR PORTABLE CHEST AP EXAM: XR PORTABLE CHEST AP CLINICAL HISTORY: dysnea TECHNIQUE: 2D digital imaging was performed. COMPARISON: CR XR PORTABLE CHEST AP from 01/05/2023 CR XR PORTABLE CHEST AP from 04/13/2023 CR,XR XR PORTABLE CHEST AP from 01/09/2024 FINDINGS: Exam is extremely limited by poor pulmonary inflation. Mild respiratory motion. LUNGS: Grossly clear. No pleural abnormality seen. HEART: Cardiac silhouette partially obscured. AORTA: Normal diameter. BONES: Unremarkable for age. Soft tissues: Unremarkable. IMPRESSION: Extremely limited exam. No acute findings. DATA REPOSITORY: RADIATION DOSE DELIVERED:
[2024-01-12 12:36] VITALS: PULSE 86; RESP 18; RESP 6; O2SAT 96
[2024-01-12] MEDS: Albuterol/Ipratropium 3 ML UPD VIAL IH (12:36)
--- NOTE | 2024-01-12 12:40 | PGE_ITS ---
Date of Service Date of service: 01/12/24 Time of Service: 12:40 Assessment and Plan Assessment and plan (1) Sepsis: Status: Acute Assessment and plan: urinary source, Proteus mirabiis, blood cultures no growth; continue Rocephin. IV fluids were stopped this morning but I think he is a little hypervolemic. I will check his CXR but give some lasix to correct the hypervolemia. His net I/O this admission cumulatively are 3.7 liters positive. I will give one time dose of lasix, but this will require cancellation of transfer back to [facility] today. Qualifiers: Sepsis type: sepsis due to unspecified organism Sepsis acute organ dysfunction status: with acute organ dysfunction Severe sepsis acute organ dysfunction type: acute renal failure Acute renal failure type: unspecified Severe sepsis shock status: without septic shock Qualified Code(s): A41.9 - Sepsis, unspecified organism; R65.20 - Severe sepsis without septic shock; N17.9 - Acute kidney failure, unspecified (2) Recurrent UTI: Status: Acute Assessment and plan: Proteus in his urine sensitive to cephalosporins.Day #2 of Rocephin after 2 days of Cefepime. Will continue while hospitalized. Treat for 5 to 7 days total but can finish oral antibiotic at the detention if he can be discharged tomorrow. (3) Acute hypoxemic respiratory failure: Status: Acute Assessment and plan: reportedly aspiration event but no pneumonic consolidation was seen on his CXR and he remains on room air. He very well may have had an aspiration event but he has not been getting any oral feedings and so far he is tolerationg his tube feedings. will check repeat CXR today given his airway congestion but he is not hypoxemic on room air his SPO2 is 96%. I think that this is likely fluid overload (4) Aspiration pneumonia: Status: Suspected Assessment and plan: no pneumonic consolidation seen on CXR and he remains on room air w/ SPO2 96 TO 98%. Qualifiers: Aspiration pneumonia type: due to vomit Laterality: unspecified laterality Lung location: unspecified part of lung Qualified Code(s): J69.0 - Pneumonitis due to inhalation of food and vomit (5) [place] (acute kidney injury): Status: Resolved Assessment and plan: renal fxn has recovered. BUN 24, creatinine 1.0, good urine ouput. IV fluids were running this morning so I have ordered them to be stopped and will give one time dose of lasix to correct his volume status. (6) Parkinsons disease: Status: Chronic Assessment and plan: Continue outpatient therapies Qualifiers: Dyskinesia presence: unspecified whether dyskinesia Fluctuating manifestations: unspecified whether manifestations fluctuate Qualified Code(s): G20.A1 - Parkinson's disease without dyskinesia, without mention of fluctuations (7) Gastrostomy in place: Status: Acute Assessment and plan: tolerating Nutren 2.0 at 42 mL/hr continuous feed, patient now on reglan for prevention of refulux (8) Urinary retention: Status: Chronic Assessment and plan: Patient has suprapubic catheter in place which was changed on admission (9) Sacral decubitus ulcer: Status: Acute Assessment and plan: continue local wound care, skin intact, nursing using Mepilex and off loading of pressure by frequent turns from side to side Qualifiers: Pressure injury stage: stage 1 Qualified Code(s): L89.151 - Pressure ulcer of sacral region, stage 1 (10) Schizoaffective disorder: Status: Acute Assessment and plan: Not currently on any antipsychotics. Qualifiers: Schizoaffective disorder type: unspecified Qualified Code(s): F25.9 - Schizoaffective disorder, unspecified (11) DVT prophylaxis: Status: Acute Assessment and plan: LMWH Subjective Subjective Interval history since last seen: Mr Moralez is having some increased airway congestion. No documented aspiration events. SPO2 96% on room air Exam Narrative Exam Narrative: He is alert, oriented to person, respond appropriately to my questions and to commands. He is not in acute respiratory distress however he has audible coarse breath sounds Lungs; congested w/ scattered rhonchorous sounding but primarily in upper/central airway, not in the periphery where I am hearing some rales heart: RRR Abdomen: soft, nontender Extremities: slight edema of his hands, R>L [place] draining clear yellow urine Objective Last Vital Signs Temp 36.7 C 01/12/24 08:09 Pulse 86 01/12/24 12:36 Resp 18 01/12/24 12:36 BP 127/86 01/12/24 08:09 Pulse Ox 96 01/12/24 12:36 Laboratory Results - last 24 hr 01/12/24 06:45 WBC 4.83 RBC 2.90 L Hgb 8.1 L Hct 25.7 L MCV 89 MCH 27.9 MCHC 31.5 L RDW 14.0 Plt Count 304 MPV 9.8 Immature Gran % 0.6 Neutrophils % 67.4 Lymphocytes % 15.9 Monocytes % 12.6 Eosinophils % 3.1 Basophils % 0.4 Nucleated RBC % 0.0 Absolute Neutrophils 3.25 Absolute Lymphocytes 0.77 L Absolute Monocytes 0.61 Absolute Eosinophils 0.15 Absolute Basophils 0.02 Sodium 140 Potassium 4.1 Chloride 105 Carbon Dioxide 25.7 Anion Gap 9.3 BUN 24 H Creatinine 1.0 Est GFR (CKD-EPI 2020) 78.00 Glucose 116 H Calcium 8.5 Iron 16 L TIBC 186 L Transferrin % Sat 9 L Ferritin 124 Reviewed Pertinent PMH: Yes Objective Narrative Objective Narrative: Bedside U.S. demonstrated bibasilar B lines but no consolidation Time Spent with Patient Time Spent with Patient: 35-49 minutes Time was spent: preparing to see the patient(eg.review tests), ordering medications,tests, procedures, referring, communicating with other health nurse behavioral health care, indepentently interpreting results and care coordination
[2024-01-12] MEDS: cefTRIAXone 2 GM/50 ML BAG IVPB (13:30)
[2024-01-12] MEDS: Furosemide 40 MG/4 ML VIAL IVP (13:30)
--- NOTE | 2024-01-12 14:29 | PDOC.CMPRO ---
Date of service: 01/12/24 Time of Service: 14:29 Care Management Progress Note Progress Note Text Progress Note Text: S/O: Cesario was resting comfortably in bed when CM attempted to meet with him. Per MD, his discharge was cancelled today due to increased airway congestion. CM notified [facility], and will continue to provide updates as indicated. CM will coordinate his return to [facility] once he becomes medically cleared. CM will continue to follow. A: 78 year old male admitted to [facility] 01/09/24 for Aspiration Pneumonia P: Cesario will return to [facility], via the facility's wheelchair van, where his care needs will continue to be managed. He will continue to be closely followed by Palliative Care as well-CM continues to follow. SDOH(Care Management) Screening Will the Patient Participate in the Screening?: Unable to obtain Health Related Social Needs Health related social needs details: Pt currently resides at the [facility].
[2024-01-12 15:12] VITALS: BP 108/75; PULSE 92; RESP 17; TEMP 36.9; O2SAT 96
[2024-01-12 23:41] VITALS: BP 103/60; PULSE 82; RESP 17; TEMP 36.2; O2SAT 94
[2024-01-13 06:58] LABS: Abs Immature Grans 0.04 10^3/uL (0.0-0.06); Absolute Basophil Count 0.04 10^3/uL (0.0-0.2); Absolute Lymphocyte Count 0.83 10^3/uL (1.2-3.4); Absolute Monocyte Count 0.64 10^3/uL (0.1-0.8); Absolute Neutrophil Count 2.81 10^3/uL (1.2-6.7); Basophils % 0.9; Eosinophils % 4.4; HCT 25.5 % (40.0-50.0); HGB 8.3 g/dL (13.5-17.5); Immature Grans % 0.9; Lymphocytes % 18.2; MCH 28.5 pg (27.0-33.0); MCHC 32.5 % (32.0-36.0); MCV 88 fL (80-95); MPV 9.5 fL (8.0-11.0); Neutrophils % 61.6; Platelet Count 336 10^3/uL (130-400); RBC 2.91 10^6/uL (4.36-5.78); RDW 14.2 % (11.8-14.1); RDW-SD 46.2 fL; WBC 4.56 10^3/uL (4.4-10.8)
[2024-01-13 07:10] LABS: Anion Gap 10.4 mmol/L (3-11); BUN 22 mg/dL (7-18); CO2 27.6 mmol/L (21.0-32.0); Calcium 9.1 mg/dL (8.5-10.1); Chloride 103 mmol/L (98-107); Glucose 107 mg/dL (74-106); Potassium 3.8 mmol/L (3.5-5.1); Sodium 141 mmol/L (136-145)
[2024-01-13 08:26] VITALS: BP 106/66; PULSE 82; RESP 16; TEMP 35.9; O2SAT 96
[2024-01-13] MEDS: Famotidine 20 MG TAB 40 MG NG (09:44)
[2024-01-13] MEDS: Aspirin 81 MG CHEW NG (09:44)
[2024-01-13] MEDS: Cyanocobalamin 500 MCG TAB 1000 MCG NG (09:46)
[2024-01-13] MEDS: Benztropine 1 MG TAB NG (09:46)
[2024-01-13] MEDS: Multivitamin w/Minerals TAB 1 TAB NG (09:47)
[2024-01-13] MEDS: dilTIAZem 60 MG TAB 30 MG NG ×2 (09:47→13:46)
[2024-01-13] MEDS: Mupirocin 2% Oint. 22 GM TUBE TP ×2 (09:48→13:48)
[2024-01-13] MEDS: Enoxaparin 40 MG/0.4 ML SYR SC (09:48)
[2024-01-13] MEDS: Normal Saline Flush 10 ML SYR IVP (10:09)
[2024-01-13 11:33] LABS: Bilirubin Negative (Negative); Blood Small (Negative); Clarity Clear (Clear); Glucose Negative (Negative); Ketones Negative (Negative); Leukocyte Esterase Moderate (Negative); Nitrite Negative (Negative); Urobilinogen 0.2 mg/dL (Up to 0.2); pH 7.5 (5-8)
[2024-01-13 11:50] LABS: Bacteria Few HPF (Negative); C & S Indicated? Yes; Casts Negative LPF (Negative); Crystals Negative HPF (Negative); Epithelial Cells Rare HPF (Negative); Mucus Negative (Negative)
[2024-01-13] MEDS: cefTRIAXone 2 GM/50 ML BAG IVPB (13:46)
--- NOTE | 2024-01-13 14:31 | DSE_ITS ---
Date of service: 01/13/24 Time of Service: 15:11 DS: Diagnosis Discharge Diagnosis (1) Sepsis: Status: Resolved Asessment and Plan: secondary to complicated UTI from Proteus mirabilis pansensitive, initially treated w/ Vancomycin and cefepime but vancomycin stopped once blood cultures had no growth and source ws determined to be urinary infection from Proteus. Cefepime changed to Ceftriaxone once sensitivities were obtained (pansensitive except resistannt to nitrofurantoin). He had 5 days of iv antibiotics (2 days of cefepime and 3 days of Ceftriaxone. He will be dc on Fosfomycin every 3 days x 3 doses to prevent recurrence of his UTI. SPC should be changed monthly or more often if it appears to be developing mucous/sediment. (2) Recurrent UTI: Status: Acute Asessment and Plan: as above (3) Acute hypoxemic respiratory failure: Status: Acute Asessment and Plan: patient may have had an aspiration event however, no infiltrates were seen on his admission CXR nor on the repeat film from 01/11. patient should be upright at 30 degrees while enteral feedings are going in. Reglan was used while hospitalized but no new orders have been sent for outpatient reglan (4) Aspiration pneumonia: Status: Ruled-out Asessment and Plan: no pneumonia seen on his CXR and patient did not require supplemental oxygen beyond the first 4 hours of his admission (5) [place] (acute kidney injury): Status: Resolved Asessment and Plan: patient presented w/ creatinine of 1.5 which after hydration came down to 1.0. (6) Parkinsons disease: Status: Chronic Asessment and Plan: no change in his meds (7) Gastrostomy in place: Status: Acute Asessment and Plan: tube feedings were resumed on continual pump, see nutritional supports recommendations. (8) Urinary retention: Status: Chronic Asessment and Plan: SPC was changed. Seems to be functioning fine. change monthly or more often w/ signs of incresed sediment, or contamination. (9) Sacral decubitus ulcer: Status: Acute Asessment and Plan: wound care consult obtained. wound appears to be stage I with slight pinkness of the skin; recommend Mepilex and off loading of pressure from his buttocks (10) Schizoaffective disorder: Status: Acute Asessment and Plan: no change in his meds (11) DVT prophylaxis: Status: Acute Asessment and Plan: patient was treated w/ enoxaparin while hospitalized Discharge Plan Disposition Patient Disposition: [facility] Facility(SNF) Condition: Improving Discharge Details Reason For Visit: Aspiration Pneumonia Admit Date/Time: 01/09/24 22:44 Admit Provider: Harsh Miller Attending Provider: Harsh Miller Primary Care Provider: Henrik Mukherjee Hospital Course Hospital Course: See admission H&P for details of patient's presenting signs and symptoms. In summary this 78-year-old resident of [facility] with a history of parkinsonism, schizoaffective disorder, chronic bladder outlet obstruction requiring suprapubic catheter, dysphagia requiring PEG tube feeding presented with acute mental status change in acute respiratory distress with fever after one of his recent feedings. It was felt that he had an aspiration event. Temperature was 103 and he had coarse upper airway sounds. However admission chest x-ray failed to show any infiltrates and a subsequent chest x-ray done on 329 also showed no infiltrates. Blood cultures and urine cultures were obtained. Urine culture grew Proteus mirabilis which was pansensitive except for resistance to nitrofurantoin. Blood culture showed no growth. Patient was started on broad-spectrum antibiotics including vancomycin and cefepime for possible aspiration pneumonia however when it became apparent that he had no pneumonia and he was quickly weaned off oxygen within the first 4 hours of admission and we grew Proteus in his urine his antibiotics were changed cefepime was continued but vancomycin was discontinued. Once we get sensitivities back he was switched to ceftriaxone. He received 5 days of IV antibiotics. He will be discharged for 3 more doses of fosfomycin starting with 3 g every 3 days x 3 doses. Suprapubic catheter was changed during this admission. SPC should be changed monthly or more often as needed if there is increased sediment or mucus buildup in the tube. Tube feedings were restarted during this hospitalization which she tolerated with no signs of aspiration. See nutritional support's recommendations for management of his enteral feedings. At the time of discharge patient was back to his normal baseline cognition he was not having any hypoxemia. O2 saturation was in the mid to high 90s on room air. He was afebrile with stable vital signs. Of note his diltiazem was decreased to 30 mg TID because of borderline low blood pressure readings. On the day prior to discharge she was given a single dose of Lasix as it was felt he was a little hypervolemic from the initial fluid resuscitation during his treatment of his sepsis. Of note patient has been found to be anemic with a hemoglobin varying between 8 and 9 g. This is not a new finding but should be followed up with further outpatient testing. Recommend outpatient EGD and colonoscopy if the patient and family are so inclined. Home Meds and New Rx's Prescriptions: New fosfomycin tromethamine 3 gram packet See Rx Instructions .ROUTE .COMPLEX Qty: 1 0RF Rx Instructions: 3 g orally per g tube every 3 days x 3 doses diltiazem HCl [Cardizem] 60 mg Tablet 30 mg NG TID Qty: 0 0RF Continued ipratropium-albuterol 0.5 mg-3 mg(2.5 mg base)/3 mL solution for nebulization 3 ml inhalation Q6H PRN Nutren 2.0 0.08 gram-2 kcal/mL liquid 240 ml feeding tube .COMPLEX Qty: 6000 0RF Rx Instructions: 240 mL via feeding tube 5 times a day; famotidine 20 mg tablet 40 mg feeding tube DAILY polyethylene glycol 3350 [Miralax] 17 gram/dose powder See Rx Instructions PO DAILY PRN PRN Rx Instructions: 1 scoop MWF and addl PRN orally daily, as needed PRN; cyanocobalamin (vitamin B-12) 500 mcg tablet 1,000 mcg feeding tube DAILY Qty: 1 0RF amantadine HCl 50 mg/5 mL solution 100 mg feeding tube TID magnesium hydroxide [Milk of Magnesia] 400 mg/5 mL Suspension 30 ml PO BID PRN PRN aspirin 81 mg Tablet,Chewable 81 mg feeding tube DAILY One Daily Multi-Vit w-Mineral 4.5 mg iron Tablet 1 tab PO DAILY@1000 Qty: 0 0RF acetaminophen 325 mg tablet 650 mg feeding tube Q6H PRN (Reason: Fever) silver sulfadiazine [Silvadene] 1 % Cream 25 g topical DAILY Qty: 0 0RF carbidopa-levodopa 25-250 mg Tablet 1 tab feeding tube QID@0700,1100,1600,2000 Qty: 30 0RF entacapone 200 mg Tablet 200 mg NG QID@0700,1100,1600,2000 Qty: 30 0RF benztropine 1 mg tablet 1 mg feeding tube DAILY Qty: 0 0RF Discontinued diltiazem HCl [Cardizem] 60 mg Tablet 60 mg feeding tube TID Discharge Instructions Instructions: Urinary Tract Infection in Men (DC), How to Care for Your Suprapubic Catheter (DC), Sepsis (DC) Stand Alone Forms: Nursing Discharge Form Referrals: Henrik Mukherjee [Primary Care Provider] - (follow up next week) Activity:: Activity as Tolerated Equipment/Supplies:: No Equipment Needed Diet:: Nutren 2.0 per nutritional services consult Discharge Orders Discharge Orders: Discharge Order (Routine); Ordered 01/13/24 Ordered By: Dann Rey DS: Summary Time Spent with Patient providing and/or coordinating discharge services: Greater than 30 minutes Status at Discharge Functional status at discharge: bed bound Overall status at discharge: patient is back to baseline Mental Status: mental status grossly normal Speech and Movement: other Mood: congruent mood Affect: normal affect Quality:SDOH Health Related Social Needs: Health related social needs details Pt currently resid es [facility] the [facility]. Health related social needs details: Pt currently resides at the [facility]. Exam Narrative Exam Narrative: Male sitting up watching TV seems to be in no distress. He denies any discomfort or dyspnea. Lungs with some coarse upper airway sounds that clears with coughing and deep breathing lower lung leon are clear to auscultation Heart sounds to be regular no appreciable murmur rub Abdomen soft and nontender, suprapubic catheter is intact there is no erythema or induration or discharge around the tube. Lower extremities without peripheral cyanosis or edema Psych Mental Status: mental status grossly normal Speech and Movement: other Mood: congruent mood Affect: normal affect DS: Data Vitals/I&O Vitals and I&O: Vital Signs Temperature 35.9 C L 01/13/24 08:26 Temperature Source Tympanic 01/13/24 08:26 Pulse 82 01/13/24 08:26 Pulse Rhythm Regular 01/13/24 10:10 Pulse 75 01/11/24 18:00 Respiratory Rate 16 01/13/24 08:26 Respiratory Effort Normal 01/13/24 10:10 Respiratory Depth Normal 01/13/24 10:10 Respiratory Pattern Normal 01/13/24 10:10 Blood Pressure 106/66 03/30/24 08:26 Blood Pressure Mean 83 01/11/24 16:00 Blood Pressure Position Supine 01/10/24 00:30 Pulse Oximetry 96 01/13/24 08:26 Oxygen Delivery Method Room Air 01/13/24 08:26 Oxygen Flow Rate 0 01/13/24 08:26 Pain Level 0 01/13/24 08:26 Comment MAP of 68 01/11/24 11:20 Intake & Output 01/12/24 01/13/24 01/13/24 23:59 11:59 23:59 Intake Total 112 / 1442 1940 / 2890 950 / 2890 Output Total 1250 / 2810 1400 / 1400 Balance -1138 / -1368 540 / 1490 950 / 1490 Weight 94 kg 94.2 kg Intake: IV 50 / 940 0 / 0 Intake, Tube Feeding Amount 62 / 262 1940 / 2890 950 / 2890 Output: Urine 1250 / 2800 1400 / 1400 Other: Urine Color Light Jacqui Yellow [place] Urine Appearance Clear Sediment Comment gravity bag changed Stool Size Small Small Moderate Stool Characteristics Soft Soft Formed Brown Brown Data Completed and Pending Labs on day of discharge: Labs from last 24 hours 01/13/24 01/13/24 11:07 06:25 WBC 4.56 RBC 2.91 L Hgb 8.3 L Hct 25.5 L MCV 88 MCH 28.5 MCHC 32.5 RDW 14.2 H Plt Count 336 MPV 9.5 Immature Gran % 0.9 Neutrophils % 61.6 Lymphocytes % 18.2 Monocytes % 14.0 Eosinophils % 4.4 Basophils % 0.9 Nucleated RBC % 0.0 Absolute Neutrophils 2.81 Absolute Lymphocytes 0.83 L Absolute Monocytes 0.64 Absolute Eosinophils 0.20 Absolute Basophils 0.04 Sodium 141 Potassium 3.8 Chloride 103 Carbon Dioxide 27.6 Anion Gap 10.4 BUN 22 H Creatinine 1.0 Est GFR (CKD-EPI 2020) 78.00 Glucose 107 H Calcium 9.1 Urine Color Yellow Urine Clarity Clear Urine pH 7.5 Ur Specific [place] 1.020 Urine Protein Negative Urine Ketones Negative Urine Blood Small H Urine Nitrite Negative Urine Bilirubin Negative Urine Urobilinogen 0.2 Ur Leukocyte Esterase Moderate H Urine RBC 3-5 H Urine WBC 10-20 H Ur Epithelial Cells Rare Urine Crystals Negative Urine Bacteria Few Urine Casts Negative Urine Mucus Negative Ur Culture Indicated? Yes Urine Glucose Negative 01/13/24 11:07 Urine - Reflex from Ua Urine Culture - Pending Preliminary micro results at discharge 01/13/24 11:07 Urine Culture - Pending Urine - Reflex from Ua 01/09/24 21:40 Blood Culture - Preliminary Blood NO GROWTH 72 HOURS 01/09/24 21:34 Blood Culture - Preliminary Blood NO GROWTH 72 HOURS PFS All Active Problems (Updated 01/13/24 @ 14:44 by Dann Rey MD) DVT prophylaxis (Acute) Hypoalbuminemia (Acute) Alkaline phosphatase elevation (Acute) Acute hypoxemic respiratory failure (Acute) Speech disorder (Acute) Anemia (Chronic) Communication deficit (Acute) Unable to talk for about a year due to parkinsonism Suggest using squares of paper with yes and no written in large print with sharpie. Insist that patient hand correct answer. Test with known answers before hand. Parkinsons disease (Chronic) Gastrostomy in place (Acute) Recurrent UTI (Acute) Pneumonia (Acute) Schizoaffective disorder (Acute) Palliative care patient (Acute) Sacral decubitus ulcer (Acute) Oropharyngeal dysphagia (Acute) B12 deficiency (Acute) Folate deficiency (Acute) Dysphagia (Acute) PEG (percutaneous endoscopic gastrostomy) status (Acute) Advanced care planning/counseling discussion (Acute) Urinary retention (Chronic) Medical History Acute kidney failure Recurrent postcoital urinary tract infection Bladder stones Other schizoaffective disorders On enteral nutrition Mass of thyroid gland Indwelling [place] catheter present Unable to walk in -[facility] transfer Parkinsonism due to drugs Chronic kidney disease BPH (benign prostatic hyperplasia) Atrial fibrillation Hx of hyperlipidemia HTN (hypertension) Social History Smoking/Tobacco Use Status: Never Smoking risk assessment performed?: Yes Alcohol Intake: never Substance use type: does not use Housing: pen[facility]entiary Additional Social history: Pateint live at the [facility] Time Spent with Patient Time Spent with Patient: 45-69 minutes Time was spent: preparing to see the patient(eg.review tests), ordering medications,tests, procedures, referring, communicating with other health home health care social worker, indepentently interpreting results and care coordination
--- NOTE | 2024-01-13 14:52 | CMDISCH_ITS ---
Date of service: 01/13/24 Time of Service: 14:52 LACE Index Scoring Tool Questions: Length of Stay (in days): 4 - 6 Was the patient admitted via the E.D.?: Yes Comorbidities: Liver or Renal Disease E.D. Visits: 3 Answers: Total Score: 15 Risk of Readmission: High Risk Care Management Discharge Plan Reason for Hospitalization: Aspiration Pneumonia Discharge Plan: Cesario will return to [facility]. He will trans port via EMS coordinated by CM. The facility will manage his further care needs. Patient/Family Education Needs: Review discharge instructions, discuss Ask Me Three. Services Needed at Discharge: Residential Facility SDOH Health Related Social Needs: Health related social needs details [facility] Health related social needs details: [facility]
[2024-01-13] MEDS: Fosfomycin Tromethamine 3 GM PACKET PO (15:01)
[2024-01-13 15:13] VITALS: BP 99/66; PULSE 81; RESP 18; TEMP 36; O2SAT 94
[2024-01-15 09:52] LABS: Transferrin 141 mg/dL (201-352)
== END 2024-01-13 15:33 | disposition skilled nursing facility (03) | DRG 871 ==
LOC: ER 23:34 → ICU 01-10 00:26 → MS 01-11 20:27
PROVIDERS: Emergency Medicine; Internal Medicine; Admitting Provider Family Medicine; Emergency Provider Student in an Organized Health Care Education/Training Program; PCP Family Medicine; Visit Provider Family Medicine
DX: A41.9 Sepsis, unspecified organism (principal); J96.01 Acute respiratory failure with hypoxia; N39.0 Urinary tract infection, site not specified; N17.9 Acute kidney failure, unspecified; G21.19 Other drug induced secondary parkinsonism; R65.20 Severe sepsis without septic shock; Z93.1 Gastrostomy status; L89.151 Pressure ulcer of sacral region, stage 1; R33.9 Retention of urine, unspecified; F25.9 Schizoaffective disorder, unspecified; Z22.322 Carrier or suspected carrier of Methicillin resistant Staphylococcus aureus; Z93.51 Cutaneous-vesicostomy status; Z74.01 Bed confinement status; R47.89 Other speech disturbances; E53.8 Deficiency of other specified B group vitamins; R13.12 Dysphagia, oropharyngeal phase; N18.9 Chronic kidney disease, unspecified; I48.91 Unspecified atrial fibrillation; I12.9 Hypertensive chronic kidney disease with stage 1 through stage 4 chronic kidney disease, or unspecified chronic kidney disease; E78.5 Hyperlipidemia, unspecified; B96.4 Proteus (mirabilis) (morganii) as the cause of diseases classified elsewhere; Z87.440 Personal history of urinary (tract) infections; T17.908A Unspecified foreign body in respiratory tract, part unspecified causing other injury, initial encounter
CPT/HCPCS: 00123; 36415; 51702; 80048; 80053; 82805; 84145; 87040; 87077; 87637; 87641; 93005; 96365; 96372; 96375; 99291; J1650; 71045; 80202; 81003; 81015; 82270; 82728; 83540; 83550; 83605; 84466; 85025; 87086; 87186; 93010; 94640; 94760; 99231; 99232; 99239; J0131; J0692; J0696; J1940; J2405; J3010; J3370; J3490; J7620

== ENCOUNTER 2024-01-27 12:14 | Outpatient (REF) | payer MEDICARE, MEDICAID, SELFPAY ==
[2024-01-27 13:28] LABS: HCT 32.4 % (40.0-50.0); HGB 10.3 g/dL (13.5-17.5); MCH 29.2 pg (27.0-33.0); MCHC 31.8 % (32.0-36.0); MCV 92 fL (80-95); MPV 10.4 fL (8.0-11.0); Platelet Count 314 10^3/uL (130-400); RBC 3.53 10^6/uL (4.36-5.78); RDW 17.1 % (11.8-14.1); RDW-SD 57.4 fL; WBC 3.87 10^3/uL (4.4-10.8)
[2024-01-27 14:10] LABS: Folate > 20.0 ng/mL (8.6-20.0); Vitamin B12 1295 pg/mL (193-986)
== END 2024-01-27 12:15 | disposition home or self-care (01) ==
LOC: LBO 12:14
PROVIDERS: PCP Family Medicine; Visit Provider Family Medicine
DX: R53.83 Other fatigue (principal)
CPT/HCPCS: 85027; 82607; 82746

== ENCOUNTER 2024-03-30 03:49 | Inpatient (IN) | payer MEDICARE, MEDICAID, SELFPAY ==
[2024-03-30] VITALS (12 sets, daily range): BP systolic 83–165; BP diastolic 50–81; PULSE 65–114; RESP 18–31; TEMP 36.4–38.7; O2SAT 93–100
--- NOTE | 2024-03-30 03:30 | DI.RAD_ITS ---
Exam(s) XR PORTABLE CHEST AP EXAM: XR PORTABLE CHEST AP CLINICAL HISTORY: SOB TECHNIQUE: 2D digital imaging was performed of the chest. One image was obtained. An AP view was ob tained. COMPARISON: CR XR PORTABLE CHEST AP from 01/12/2024 FINDINGS: There are low lung volumes. MEDIASTINUM: Normal. HEART: Normal. PULMONARY VASCULATURE: Normal. LUNGS: Linear atelectatic changes are seen in the lung bases. There is no focal consolidation at thi s time. PLEURAL SPACE: No pleural effusion or pneumothorax. BONE:Within normal limits for the patient's age. OTHER FINDINGS:Normal. IMPRESSION: No acute pulmonary findings. DATA REPOSITORY: RADIATION DOSE DELIVERED:
[2024-03-30] MEDS: Lactated Ringers 1,000 ML 2000 ML IV (03:35)
[2024-03-30] MEDS: VANCOMYCIN 2,000 MG in Normal Saline 500 ML 250 MG IVPB (03:38)
[2024-03-30] MEDS: PIPERACILLIN/TAZO 3.375 GM in Normal Saline 100 ML IVPB (03:40)
--- NOTE | 2024-03-30 04:04 | W.ED.GENAD ---
Discharge Plan Discharge Details Chief Complaint: Fever Admit Date/Time: 03/30/24 05:25 Admit Provider: Kleber Verduzco Attending Provider: Kleber Verduzco Primary Care Provider: Henrik Mukherjee ED Provider: Rut Scanlon Discharge Data Discharge Date/Time-TO BE ENTERED AT DEPARTURE: 03/30/24 06:06 HPI General Mode of arrival: EMS. Date/Time Provider Initiated Documentation: 03/30/24 03:59. Limitations to Documentation: other (nonverbal). Information obtained by: EMS and old records reviewed. HPI Narrative: 79yo M with Parkinsons, PEG tube and suprapubic catheter, nonverbal at baseline, presenting via EMS. Sending facility concerned for aspiration; per EMS en route febrile, tachycardiac, and turbid urine. On [facility] record review patient in the past has been participatory in history in terms of thumbs up/thumbs down; will not respond today. No further history able to be obtained from patient. Related Data Home Medications Medication Instructions Recorded Confirmed aspirin 81 mg chewable tablet 81 mg feeding tube DAILY 11/25/22 03/30/24 magnesium hydroxide 400 mg/5 mL 30 ml PO BID PRN PRN 11/25/22 03/30/24 oral suspension (Milk of Magnesia) multivitamin with minerals-ferrous 1 tab PO DAILY@1000 #0 tabs 11/28/22 03/30/24 sulfate 4.5 mg iron tablet (One Daily Multivitamins with Minerals) benztropine 1 mg tablet 1 mg feeding tube DAILY #0 tabs 01/09/23 03/30/24 carbidopa 25 mg-levodopa 250 mg 1 tab feeding tube 01/09/23 03/30/24 tablet QID@0700,1100,1600,1999 #30 tabs entacapone 200 mg tablet 200 mg NG QID@0700,1100,1600,2000 01/09/23 03/30/24 #30 tabs silver sulfadiazine 1 % topical 25 g topical DAILY #0 grams 01/09/23 03/30/24 cream (Silvadene) nutritional supplements 0.08 240 ml feeding tube .COMPLEX 03/16/23 03/30/24 gram-2 kcal/mL liquid for tube #6,000 mL feed (Nutren 2.0) ipratropium 0.5 mg-albuterol 3 mg 3 ml inhalation Q6H PRN 05/24/23 03/30/24 (2.5 mg base)/3 mL nebulization soln cyanocobalamin (vitamin B-12) 500 1,000 mcg (2 x 500 mcg) feeding 07/27/23 03/30/24 mcg tablet tube DAILY #1 tab famotidine 20 mg tablet 40 mg feeding tube DAILY 07/27/23 03/30/24 polyethylene glycol 3350 17 See Rx Instructions PO DAILY PRN 07/27/23 03/30/24 gram/dose oral powder (Miralax) PRN acetaminophen 325 mg tablet 650 mg feeding tube Q6H PRN Fever 10/19/23 03/30/24 amantadine HCl 50 mg/5 mL oral 100 mg feeding tube TID 01/09/24 03/30/24 solution diltiazem HCl 60 mg tablet 30 mg (1/2 x 60 mg) NG TID #0 tabs 01/13/24 03/30/24 (Cardizem) fosfomycin tromethamine 3 gram See Rx Instructions .Route 01/13/24 03/30/24 oral packet .COMPLEX #1 ea Previous Rx's Medication Instructions Recorded multivitamin with minerals-ferrous 1 tab PO DAILY@1000 #0 tabs 11/28/22 sulfate 4.5 mg iron tablet (One Daily Multivitamins with Minerals) benztropine 1 mg tablet 1 mg feeding tube DAILY #0 tabs 01/09/23 carbidopa 25 mg-levodopa 250 mg 1 tab feeding tube 01/09/23 tablet QID@0700,1100,1600,1999 #30 tabs entacapone 200 mg tablet 200 mg NG QID@0700,1100,1600,2000 01/09/23 #30 tabs silver sulfadiazine 1 % topical 25 g topical DAILY #0 grams 01/09/23 cream (Silvadene) nutritional supplements 0.08 240 ml feeding tube .COMPLEX 03/16/23 gram-2 kcal/mL liquid for tube #6,000 mL feed (Nutren 2.0) cyanocobalamin (vitamin B-12) 500 1,000 mcg (2 x 500 mcg) feeding 07/27/23 mcg tablet tube DAILY #1 tab diltiazem HCl 60 mg tablet 30 mg (1/2 x 60 mg) NG TID #0 tabs 01/13/24 (Cardizem) fosfomycin tromethamine 3 gram See Rx Instructions .Route 01/13/24 oral packet .COMPLEX #1 ea Allergies Allergy/AdvReac Type Severity Reaction Status Date / Time No Known Allergies Allergy Verified 01/09/24 22:19 General Stated Complaint: Fever JEANETTE: 2 Review of Systems Narrative: UTO Unobtainable due to (UTO) Exam Narrative Exam Narrative: General: Alert, chronically ill appearing. Head: Normocephalic, atraumatic Neck: Trachea midline, ?Neck supple. ENT: ?MMM.? Cardiac: ?Tachycardiac, regular, no murmurs appreciated Resp: No respiratory distress. CTAB. Abd: ?Soft, non-distended, nontender : ?Suprapubic catheter, turbid greenish urine. Skin: Skin breakdown on sacrum. Course Vital Signs Vital signs: Vital Signs Temperature 38.6 C H 03/30/24 03:44 Pulse 114 H 03/30/24 03:44 Respiratory Rate 31 H 03/30/24 03:44 Blood Pressure 165/67 H 03/30/24 03:44 Pulse Oximetry 93 03/30/24 03:44 Temperature 38.6 C H 03/30/24 03:44 Temperature Source Tympanic 03/30/24 03:44 Pulse 114 H 03/30/24 03:44 Respiratory Rate 31 H 03/30/24 03:44 Blood Pressure 165/67 H 03/30/24 03:44 Blood Pressure Position Supine 03/30/24 03:44 Pulse Oximetry 93 03/30/24 03:44 Oxygen Delivery Method Nasal Cannula 03/30/24 03:44 Lab/Test Results Lab/Test Results: 03/30/24 03:53 Blood Blood Culture - Pending 03/30/24 03:53 Blood Blood Culture - Pending 03/30/24 03:44 Urine - Cath Not Specified Urine Culture - Pending 03/30/24 03:35 Blood Blood Culture - Pending Medical Decision Making 79yo M with Parkinsons, PEG tube and suprapubic catheter, nonverbal at baseline, presenting via EMS. Sending facility concerned for aspiration; per EMS en route febrile, tachycardiac, and turbid urine. On [facility] record review patient in the past has been participatory in history in terms of thumbs up/thumbs down; will not respond today. No further history able to be obtained from patient. Tachycardiac on febrile on arrival, normotensive. Will treat empirically for sepsis with 2L IVFB, broad spectrum abx, blood and urine cultures sent. . Alert but not engageable on exam, cloudy green urine draining from suprapubic catheter. Skin breakdown on sacrum. Clear lungs and no hypoxia. No abdominal tenderness. Suspect most likely urinary source. Labs reviewed as below, CBC with mild leukocytosis and anemia at baseline, CMP with Cr of 1.5 elevated from 1.0 on most recent prior [facility] labs otherwise unremarkable, lactate normal, VBG reassuring, procal normal. UA consistent with infection. XR independently reviewed, no focal pneumonia on my view, [facility] read pending. Suprapubic catheter change. Discussed with hospitalist Dr. Verduzco; patient accepted for admission, requested admission/bridging orders be placed which was done. Awaiting transfer to the floor. Imaging Data Radiologic Study: Imaging: X-Ray Lab Data Lab results reviewed: Yes I reviewed the patient's lab results. Labs: 03/30/24 04:10 Urine - Cath Not Specified Urine Culture - Pending 03/30/24 03:53 Blood Blood Culture - Pending 03/30/24 03:53 Blood Blood Culture - Pending 03/30/24 03:35 Blood Blood Culture - Pending Laboratory Tests Range/Units 03/30/24 03/30/24 04:08 04:10 WBC (4.4-10.8) 10^3/uL 12.87 H RBC (4.36-5.78) 10^6/uL 3.06 L Hgb (13.5-17.5) g/dL 8.8 L Hct (40.0-50.0) % 27.3 L MCV (80-95) fL 89 MCH (27.0-33.0) pg 28.8 MCHC (32.0-36.0) % 32.2 RDW (11.8-14.1) % 14.3 H Plt Count (130-400) 10^3/uL 299 MPV (8.0-11.0) fL 9.7 Immature Gran % % 0.3 Neutrophils % % 90.2 Lymphocytes % % 2.3 Monocytes % % 7.0 Eosinophils % % 0.0 Basophils % % 0.2 Nucleated RBC % (0.0-0.3) % 0.0 Absolute Neutrophils (1.2-6.7) 10^3/uL 11.61 H Absolute Lymphocytes (1.2-3.4) 10^3/uL 0.30 L Absolute Monocytes (0.1-0.8) 10^3/uL 0.90 H Absolute Eosinophils (0.0-0.7) 10^3/uL 0.00 Absolute Basophils (0.0-0.2) 10^3/uL 0.03 RBC Morphology See Below Hypochromasia 1+ PT (9.1-11.1) sec 11.7 H INR (0.9-1.1) 1.2 H APTT (23.6-32.8) sec 28.1 VBG pH (7.31-7.41) 7.46 H VBG pCO2 (41-51) mmHg 31 L VBG pO2 mmHg 56 VBG HCO3 (23-28) mmol/L 22 L VBG Total CO2 (24-29) mmol/L 21 L VBG O2 Saturation % 91 VBG Base Excess (-2-3) mmol/L -2 VBG Lactate (0.6-1.4) mmol/L 1.3 Sodium (136-145) mmol/L 136 Potassium (3.5-5.1) mmol/L 4.3 Chloride (98-107) mmol/L 101 Carbon Dioxide (21.0-32.0) mmol/L 23.2 Anion Gap (3-11) mmol/L 11.8 H BUN (7-18) mg/dL 38 H Creatinine (0.70-1.30) mg/dL 1.5 H Est GFR (CKD-EPI 2020) (mL/min/1.73m2) 47.65 Glucose (74-106) mg/dL 181 H Calcium (8.5-10.1) mg/dL 9.1 Total Bilirubin (0.2-1.0) mg/dL 0.4 AST (15-37) U/L 15 ALT (16-63) U/L 11 L Alkaline Phosphatase (46-116) U/L 117 H Total Protein (6.4-8.2) g/dL 7.8 Albumin (3.4-5.0) g/dL 2.8 L Procalcitonin ng/mL < 0.1 Urine Color (Yellow) Yellow Urine Clarity (Clear) Turbid Urine pH (5-8) >= 9.0 H Ur Specific [place] (1.005-1.025) 1.020 Urine Protein (Neg-Trace) mg/dL 100 H Urine Ketones (Negative) mg/dL Trace H Urine Blood (Negative) Large H Urine Nitrite (Negative) Positive H Urine Bilirubin (Negative) Negative Urine Urobilinogen (Up to 0.2) mg/dL 0.2 Ur Leukocyte Esterase (Negative) Large H Urine RBC (0-2) HPF >50 H Urine WBC (0-5) HPF >50 H Ur Epithelial Cells (Negative) HPF Negative Urine Crystals (Negative) HPF Negative Urine Bacteria (Negative) HPF Many Urine Casts (Negative) LPF Negative Urine Mucus (Negative) Heavy Ur Culture Indicated? C&S Done As Ordered Urine Glucose (Negative) mg/dL Negative COVID-19 Source Nasopharynx SARS-CoV-2 (PCR) (Negative) Negative Influenza Type A (PCR) (Negative) Negative Influenza Type B (PCR) (Negative) Negative RSV (PCR) (Negative) Negative Quality:SDOH Health Related Social Needs: Health related social needs details Pt currently resides at the [facility]. [facility] All Active Problems (Updated 03/30/24 @ 06:52 by Kleber Verduzco) CKD (chronic kidney disease) stage 3, GFR 30-59 ml/min (Chronic) Hyperglycemia without ketosis (Chronic) Recurrent aspiration pneumonia (Acute) UTI (urinary tract infection) due to urinary indwelling catheter (Acute) Hypoxemia (Chronic) Aspiration pneumonia (Acute) UTI (urinary tract infection) (Acute) Sepsis (Acute) Palliative care encounter (Acute) Hypoalbuminemia (Acute) Alkaline phosphatase elevation (Acute) Speech disorder (Acute) Anemia (Chronic) Communication deficit (Acute) Unable to talk for about a year due to parkinsonism Suggest using squares of paper with yes and no written in large print with sharpie. Insist that patient hand correct answer. Test with known answers before hand. Parkinsons disease (Chronic) Gastrostomy in place (Acute) Recurrent UTI (Acute) Pneumonia (Acute) Schizoaffective disorder (Acute) Palliative care patient (Acute) Sacral decubitus ulcer (Chronic) Oropharyngeal dysphagia (Acute) B12 deficiency (Acute) Folate deficiency (Acute) Dysphagia (Acute) PEG (percutaneous endoscopic gastrostomy) status (Acute) Advanced care planning/counseling discussion (Acute) Urinary retention (Chronic) Medical History Acute kidney failure Recurrent postcoital urinary tract infection Bladder stones Other schizoaffective disorders On enteral nutrition Mass of thyroid gland Indwelling Wilkerson catheter present Unable to walk in [facility] transfer Parkinsonism due to drugs Chronic kidney disease BPH (benign prostatic hyperplasia) Atrial fibrillation Hx of hyperlipidemia HTN (hypertension) Social History Smoking/Tobacco Use Status: Never Smoking risk assessment performed?: Yes Alcohol Intake: never Substance use type: does not use Housing: senior care Additional Social history: [facility]int live at the [facility]
[2024-03-30 04:12] LABS: BE (Venous) -2 mmol/L (-2-3); HCO3 (Venous) 22 mmol/L (23-28); O2 Sat (Venous) 91 %; TCO2 (Venous) 21 mmol/L (24-29); pCO2 (Venous) 31 mmHg (41-51); pH (Venous) 7.46 (7.31-7.41); pO2 (Venous) 56 mmHg
[2024-03-30 04:14] LABS: Lactate 1.3 mmol/L (0.6-1.4)
[2024-03-30 04:20] LABS: Abs Immature Grans 0.04 10^3/uL (0.0-0.06); Absolute Basophil Count 0.03 10^3/uL (0.0-0.2); Basophils % 0.2 %; HCT 27.3 % (40.0-50.0); HGB 8.8 g/dL (13.5-17.5); Immature Grans % 0.3 %; Lymphocytes % 2.3 %; MCH 28.8 pg (27.0-33.0); MCHC 32.2 % (32.0-36.0); MCV 89 fL (80-95); MPV 9.7 fL (8.0-11.0); Neutrophils % 90.2 %; Platelet Count 299 10^3/uL (130-400); RBC 3.06 10^6/uL (4.36-5.78); RDW 14.3 % (11.8-14.1); RDW-SD 46.6 fL; WBC 12.87 10^3/uL (4.4-10.8)
[2024-03-30 04:30] LABS: Bilirubin Negative (Negative); Blood Large (Negative); Clarity Turbid (Clear); Glucose Negative (Negative); Ketones Trace mg/dL (Negative); Leukocyte Esterase Large (Negative); Nitrite Positive (Negative); Urobilinogen 0.2 mg/dL (Up to 0.2); pH >= 9.0 (5-8)
[2024-03-30 04:34] LABS: ALT 11 U/L (16-63); AST 15 U/L (15-37); Albumin 2.8 g/dL (3.4-5.0); Alkaline Phosphatase 117 U/L (46-116); Anion Gap 11.8 mmol/L (3-11); BUN 38 mg/dL (7-18); Bilirubin, Total 0.4 mg/dL (0.2-1.0); CO2 23.2 mmol/L (21.0-32.0); CREATININE 1.5 mg/dL (0.70-1.30); Calcium 9.1 mg/dL (8.5-10.1); Chloride 101 mmol/L (98-107); Estimated GFR 47.65 (mL/min/1.73m2); Glucose 181 mg/dL (74-106); Potassium 4.3 mmol/L (3.5-5.1); Sodium 136 mmol/L (136-145); Total Protein 7.8 g/dL (6.4-8.2)
[2024-03-30 04:41] LABS: INR 1.2 (0.9-1.1); PTT Activated 28.1 sec (23.6-32.8); Prothrombin Time 11.7 sec (9.1-11.1)
[2024-03-30 04:46] LABS: Bacteria Many HPF (Negative); C & S Indicated? C&S Done As Ordered; Casts Negative LPF (Negative); Crystals Negative HPF (Negative); Epithelial Cells Negative HPF (Negative); Mucus Heavy (Negative); RBC >50 HPF (0-2); WBC >50 HPF (0-5)
[2024-03-30 04:53] LABS: Absolute Neutrophil Count 11.61 10^3/uL (1.2-6.7)
[2024-03-30 04:54] LABS: Diff Comment RBC Morph Reviewed; Hypochromasia 1+
[2024-03-30 04:56] LABS: COVID-19 PCR Negative (Negative); Influenza A PCR Negative (Negative); Influenza B PCR Negative (Negative); Procalcitonin < 0.1 ng/mL; RSV PCR Negative (Negative)
[2024-03-30 04:57] LABS: Source Nasopharynx
[2024-03-30 05:44] LABS: Lactate 0.8 mmol/L (0.6-1.4)
--- NOTE | 2024-03-30 06:25 | HPE_ITS ---
Date of service: 03/30/24 Time of Service: 06:25 Assessment and Plan Assessment and plan (1) Sepsis: Start date: 03/30/24 Status: Acute Assessment and plan: This is a 79-year-old gentleman with end-stage Parkinson's disease presenting with mild sepsis with fever, tachypnea and tachycardia with source of infection most likely urinary which is recurrent with chronic indwelling suprapubic catheter but also possible aspiration with clinical changes and findings over the right hemithorax but chest x-ray negative for infiltrates. His procalcitonin is negative and lactate is only slightly elevated the patient responded to IV fluid resuscitation. He is not hypotensive. He was given a loading dose of vancomycin which will be held and Zosyn will be continued which should cover previous aspiration issues and previous Pseudomonas UTI sensitive to Zosyn. Follow-up blood cultures and urine cultures and if not responding to Zosyn alone consider reinitiating vancomycin. Consider vasopressor agents if patient needs to be temporized while treating infection and consider cardiac monitoring with telemetry versus ICU level of care if worsening. Patient is approaching end-of-life care and is a DNR/DNI. Qualifiers: Acute renal failure type: unspecified Sepsis acute organ dysfunction status: with acute organ dysfunction Sepsis type: sepsis due to unspecified organism Severe sepsis acute organ dysfunction type: acute renal failure S evere sepsis shock status: without septic shock Qualified Code(s): A41.9 - Sepsis, unspecified organism; R65.20 - Severe sepsis without septic shock; N17.9 - Acute kidney failure, unspecified (2) UTI (urinary tract infection) due to urinary indwelling catheter: Start date: 03/30/24 Status: Acute Assessment and plan: Patient's urine is cloudy with appearance of recurrent UTI with positive UA. Follow-up urine culture and adjust antibiotic coverage accordingly. Follow-up blood culture and if positive consider expanding antibiotic coverage. Follow-up lactate as continue IV resuscitation with lactated Ringer's. Watch for fluid overload. Patient is chronically debilitated. Qualifiers: Encounter type: sequela Indwelling urinary catheter type: cystostomy catheter Qualified Code(s): T83.510S - Infection and inflammatory reaction due to cystostomy catheter, sequela; N39.0 - Urinary tract infection, site not specified (3) Recurrent aspiration pneumonia: Start date: 06/15/24 Status: Acute Assessment and plan: Clinically a possible source of infection the patient covered with Zosyn. Follow-up on blood cultures. Follow-up imaging if indicated. Patient is DNR/DNI. (4) Hypoxemia: Status: Chronic Assessment and plan: Patient's oxygen needs do not appear to be increased but monitor closely. Expand antibiotic coverage and reimage if possibility of advancing pneumonic process. But now has adequate coverage with Zosyn. Nebulizers as needed. (5) Hyperglycemia without ketosis: Status: Chronic Assessment and plan: Patient has hyperglycemia but not being treated for diabetes. Follow-up hemoglobin A1c is 5.9 indicating no chronic hyperglycemia most likely increases secondary to stress., Measurements with tube feeds ACHS with sensitive insulin coverage using short acting insulin watching for hypoglycemia. (6) Sacral decubitus ulcer: Status: Chronic Assessment and plan: This is a chronic problem and will be assessed by nurses and if needed wound care. Appropriate turning the patient every 2 hours since bed ridden. He is in stage Parkinson's and much less responsive and [facility] the [facility] His DNR/DNI. Qualifiers: Pressure injury stage: stage 1 Qualified Code(s): L89.151 - Pressure ulcer of sacral region, stage 1 (7) Parkinsons disease: Status: Chronic Assessment and plan: End-stage and continued home medication to be administered through NG tube. Qualifiers: Dyskinesia presence: unspecified whether dyskinesia Fluctuating manifestations: unspecified whether manifestations fluctuate Qualified Code(s): G20.A1 - Parkinson's disease without dyskinesia, without mention of fluctuations (8) CKD (chronic kidney disease) stage 3, GFR 30-59 ml/min: Status: Chronic Assessment and plan: Slightly worsened with patient and hydrate with lactated Ringer's. Trend labs. Continue IV hydration watch for fluid overload. Qualifiers: Chronic kidney disease stage 3 subtype: stage 3a (GFR 45-59) Qualified Code(s): N18.31 - Chronic kidney disease, stage 3a (9) Anemia: Status: Chronic Assessment and plan: Stable with hemoglobin above 8 g/dL to be monitored with blood transfusion if patient continues tachycardia and hemoglobin dropped below 7 g/dL. Qualifiers: Anemia type: due to chronic kidney disease Chronic kidney disease stage: stage 3 (moderate) Chronic kidney disease stage 3 subtype: stage 3a (GFR 45-59) Qualified Code(s): N18.31 - Chronic kidney disease, stage 3a; D63.1 - Anemia in chronic kidney disease (10) Atrial fibrillation: Assessment and plan: Patient appears to be in sinus tachycardia at this time with no cardiac monitoring and patient DNR/DNI. Continue diltiazem adjusting to hypotension if occurs and tachycardia. Qualifiers: Atrial fibrillation type: paroxysmal Qualified Code(s): I48.0 - Paroxysmal atrial fibrillation History of Present Illness History of Present Illness Chief Complaint: End-stage Parkinson's with PEG tube and suprapubic catheter with fever Narrative: This is a 79-year-old male patient who resides at a local [facility] sent via EMS because of fever and question of sepsis with tachycardia, change in urine appearance and suprapubic catheter as well as question of aspiration with patient being fed by PEG tube and being nonverbal rapid progression of his disease over the last 3 months. 3 months ago he was able to give thumbs up when talking and at one point was transferring from the bed for toileting. He also has a schizoaffective disorder which may contribute to his lack of communication. Presently he is continually bedbound with some slight skin breakdown over his back and nonverbal. As per the patient he was lying in bed with his head slightly breathing through his mouth and not communicating. Further history not available and through reports from [facility] and palliative care. He is a DNR/DNI. Review of Systems Narrative: 13 point review of systems otherwise not obtainable with patient nonverbal. [facility] All Active Problems (Updated 03/30/24 @ 06:52 by Kleber Verduzco) CKD (chronic kidney disease) stage 3, GFR 30-59 ml/min (Chronic) Hyperglycemia without ketosis (Chronic) Recurrent aspiration pneumonia (Acute) UTI (urinary tract infection) due to urinary indwelling catheter (Acute) Hypoxemia (Chronic) Aspiration pneumonia (Acute) UTI (urinary tract infection) (Acute) Sepsis (Acute) Palliative care encounter (Acute) Hypoalbuminemia (Acute) Alkaline phosphatase elevation (Acute) Speech disorder (Acute) Anemia (Chronic) Communication deficit (Acute) Unable to talk for about a year due to parkinsonism Suggest using squares of paper with yes and no written in large print with sharpie. Insist that patient hand correct answer. Test with known answers before hand. Parkinsons disease (Chronic) Gastrostomy in place (Acute) Recurrent UTI (Acute) Pneumonia (Acute) Schizoaffective disorder (Acute) Palliative care patient (Acute) Sacral decubitus ulcer (Chronic) Oropharyngeal dysphagia (Acute) B12 deficiency (Acute) Folate deficiency (Acute) Dysphagia (Acute) PEG (percutaneous endoscopic gastrostomy) status (Acute) Advanced care planning/counseling discussion (Acute) Urinary retention (Chronic) Medical History Acute kidney failure Recurrent postcoital urinary tract infection Bladder stones Other schizoaffective disorders On enteral nutrition Mass of thyroid gland Indwelling Wilkerson catheter present Unable to walk in [facility] transfer Parkinsonism due to drugs Chronic kidney disease BPH (benign prostatic hyperplasia) Atrial fibrillation Hx of hyperlipidemia HTN (hypertension) Social History Smoking/Tobacco Use Status: Never Smoking risk assessment performed?: Yes Alcohol Intake: never Substance use type: does not use Housing: [facility] Additional Social history: Pateint live at the [facility] Med Allergies and Home Medications Allergies Allergy/AdvReac Type Severity Reaction Status Date / Time No Known Allergies Allergy Verified 01/09/24 22:19 Home Medications Medication Instructions Recorded Confirmed Type aspirin 81 mg chewable tablet 81 mg feeding tube DAILY 11/25/22 03/30/24 History magnesium hydroxide 400 mg/5 mL 30 ml PO BID PRN PRN 11/25/22 03/30/24 History oral suspension (Milk of Magnesia) multivitamin with minerals-ferrous 1 tab PO DAILY@1000 #0 tabs 11/28/22 03/30/24 Rx sulfate 4.5 mg iron tablet (One Daily Multivitamins with Minerals) benztropine 1 mg tablet 1 mg feeding tube DAILY #0 tabs 01/09/23 03/30/24 Rx carbidopa 25 mg-levodopa 250 mg 1 tab feeding tube 01/09/23 03/30/24 Rx tablet QID@0700,1100,1600,2000 #30 tabs entacapone 200 mg tablet 200 mg NG QID@0700,1100,1600,2000 01/09/23 03/30/24 Rx #30 tabs silver sulfadiazine 1 % topical 25 g topical DAILY #0 grams 01/09/23 03/30/24 Rx cream (Silvadene) nutritional supplements 0.08 240 ml feeding tube .COMPLEX 03/16/23 03/30/24 Rx gram-2 kcal/mL liquid for tube #6,000 mL feed (Nutren 2.0) ipratropium 0.5 mg-albuterol 3 mg 3 ml inhalation Q6H PRN 05/24/23 03/30/24 History (2.5 mg base)/3 mL nebulization soln cyanocobalamin (vitamin B-12) 500 1,000 mcg (2 x 500 mcg) feeding 07/27/23 03/30/24 Rx mcg tablet tube DAILY #1 tab famotidine 20 mg tablet 40 mg feeding tube DAILY 07/27/23 03/30/24 History polyethylene glycol 3350 17 See Rx Instructions PO DAILY PRN 07/27/23 03/30/24 History gram/dose oral powder (Miralax) PRN acetaminophen 325 mg tablet 650 mg feeding tube Q6H PRN Fever 10/19/23 03/30/24 History amantadine HCl 50 mg/5 mL oral 100 mg feeding tube TID 01/09/24 03/30/24 History solution fosfomycin tromethamine 3 gram See Rx Instructions .Route 01/13/24 03/30/24 Rx oral packet .COMPLEX #1 ea diltiazem HCl 30 mg tablet 30 mg PO TID 03/30/24 03/30/24 History Exam Narrative Exam Narrative: General: Patient appears older than stated age, moderately obese lying in bed with his head tilted back and mouth open. He is not responsive with eyes closed. He appears in moderate distress with tachypnea. HEENT: Normocephalic with masklike facies and flattened affect with eyes closed, with eyes open pupils miotic and equal partially reactive to light, extraocular movement is intact with passive movement and sclera anicteric. Oropharynx with dry mucosa and carious, missing teeth. Neck: Supple without JVD. Lungs: Expiratory diffuse crackles and slight expiratory wheeze on the right anterior hemithorax with clear aeration on the left bronchovesicular breath sounds bilaterally with only slight expiratory phase increased on the right. No intercostal retractions with inspiration. No focalizing rales or rhonchi. Back: Not examined with exam in the ED revealing slight breakdown of sacral skin but no deep ulcer to be examined by nurses and usual wound care with bedridden patient. Heart: Regular rhythm with tachycardic rate, no appreciable murmur or gallop with distant heart sounds. Abdomen: PEG tube in upper left abdomen without drainage plugged and intact. No surrounding erythema around. Moderate obese contour with no palpable hepatosplenomegaly and soft to palpation without guarding or rebound. Bowel sounds positive all quadrants. Genitalia/rectal: Suprapubic catheter intact draining dark, cloudy urine. Otherwise not examined. Extremities: Muscle wasting diffusely with no palpable pitting edema, no cyanosis or clubbing. Fair capillary refill. Extremities stiff to passive movement. Skin: Pale, warm and dry. Sacral breakdown as mentioned. Neuro: Increased rigidity but no tremor. Cranial nerves II through XII appear to be grossly intact by passive exam. Unable to assess cranial nerve II. Patient not cooperative. Psych: Essentially noncommunicative and nonresponsive except to painful stimuli. Limitation of delusions and remote and recent memory not testable. Results Imaging Imaging Studies: Exam: XR Chest Exam date and time: 03/30/2024 4:47 AM Age: 79 years old Clinical indication: Shortness of breath; Additional info: SOB TECHNIQUE: Imaging protocol: Radiologic exam of the chest. Views: 1 view. COMPARISON: CR XR PORTABLE CHEST AP 01/12/2024 12:54 PM FINDINGS: Lungs: Low lung volumes with bronchovascular crowding. No focal consolidation. Pleural spaces: No sizable pleural effusion or pneumothorax. Heart/Mediastinum: No cardiomegaly. Bones/joints: Unremarkable. IMPRESSION: No acute intrathoracic findings. Labs 03/30/24 04:08 03/30/24 04:08 Labs: Laboratory Results - last 24 hr 03/30/24 03/30/24 03/30/24 04:08 04:10 05:40 WBC 12.87 H RBC 3.06 L Hgb 8.8 L Hct 27.3 L MCV 89 MCH 28.8 MCHC 32.2 RDW 14.3 H Plt Count 299 MPV 9.7 Immature Gran % 0.3 Neutrophils % 90.2 Lymphocytes % 2.3 Monocytes % 7.0 Eosinophils % 0.0 Basophils % 0.2 Nucleated RBC % 0.0 Absolute Neutrophils 11.61 H Absolute Lymphocytes 0.30 L Absolute Monocytes 0.90 H Absolute Eosinophils 0.00 Absolute Basophils 0.03 RBC Morphology See Below Hypochromasia 1+ PT 11.7 H INR 1.2 H APTT 28.1 VBG pH 7.46 H VBG pCO2 31 L VBG pO2 56 VBG HCO3 22 L VBG Total CO2 21 L VBG O2 Saturation 91 VBG Base Excess -2 VBG Lactate 1.3 0.8 Sodium 136 Potassium 4.3 Chloride 101 Carbon Dioxide 23.2 Anion Gap 11.8 H BUN 38 H Creatinine 1.5 H Est GFR (CKD-EPI 2020) 47.65 Glucose 181 H Calcium 9.1 Total Bilirubin 0.4 AST 15 ALT 11 L Alkaline Phosphatase 117 H Total Protein 7.8 Albumin 2.8 L Procalcitonin < 0.1 Urine Color Yellow Urine Clarity Turbid Urine pH >= 9.0 H Ur Specific Amo 1.020 Urine Protein 100 H Urine Ketones Trace H Urine Blood Large H Urine Nitrite Positive H Urine Bilirubin Negative Urine Urobilinogen 0.2 Ur Leukocyte Esterase Large H Urine RBC >50 H Urine WBC >50 H Ur Epithelial Cells Negative Urine Crystals Negative Urine Bacteria Many Urine Casts Negative Urine Mucus Heavy Ur Culture Indicated? C&S Done As Ordered Urine Glucose Negative COVID-19 Source Nasopharynx SARS-CoV-2 (PCR) Negative Influenza Type A (PCR) Negative Influenza Type B (PCR) Negative RSV (PCR) Negative Last Vital Signs Temp 38.6 C H 03/30/24 03:44 Pulse 114 H 03/30/24 03:44 Resp 31 H 03/30/24 03:44 BP 165/67 H 03/30/24 03:44 Pulse Ox 93 03/30/24 03:44 Time Spent Time spent with Patient: >75 minutes Time was spent: preparing to see the patient(eg.review tests), obtaining and/or reviewing separately otained hiistory, ordering medications,tests, procedures, indepentently interpreting results and care coordination
[2024-03-30 06:44] LABS: Lactate 1.5 mmol/L (0.6-1.4)
--- NOTE | 2024-03-30 06:47 | DI.VRAD_ITS ---
PROCEDURE INFORMATION: Exam: XR Chest Exam date and time: 03/30/2024 4:47 AM Age: 79 years old Clinical indication: Shortness of breath; Additional info: SOB TECHNIQUE: Imaging protocol: Radiologic exam of the chest. Views: 1 view. COMPARISON: CR XR PORTABLE CHEST AP 01/12/2024 12:54 PM FINDINGS: Lungs: Low lung volumes with bronchovascular crowding. No focal consolidation. Pleural spaces: No sizable pleural effusion or pneumothorax. Heart/Mediastinum: No cardiomegaly. Bones/joints: Unremarkable. IMPRESSION: No acute intrathoracic findings. Dictated and Authenticated by: Camilla Clarke MD. Ordering:ESTHER Bettencourt MD
[2024-03-30 07:08] LABS: MRSA PCR Negative (Negative)
[2024-03-30 07:23] LABS: Hemoglobin A1C 5.9 % (<5.7)
--- NOTE | 2024-03-30 07:34 | PDOC.CMIN ---
Date of service: 03/30/24 Time of Service: 07:34 Care Management Initial Assmt Initial Assessment Reason for Hospitalization: Sepsis, UTI Functional Status/Living Situation Patient Presentation: Cesario was lying in bed when CM met with him. He is awake and very responsive to communication using the thumbs up, thumbs down method. Town of Residence: [facility] Resides with: Other ([facility]- [facility]) Significant Other/Family: Local Caregiver/Guardian: DPOA.HCA is brother Sesar Moralez Natural Supports: Brother Employment Status: Disabled Instrumental Activities of Daily Living (ADLs): Requires support Medications Medication Management: No Issues/Barriers identified Physical Functioning/Mobility Assistive Device: Communication style: Yes/ no, thumbs up and thumbs down. Advance Directives Advance Directives: Do you have an Advance Directive: Y 05/26/23 11:24 AD On File at [facility]: Y 05/26/23 11:24 Date Asked 01/27/24 01/27/24 12:12 AD Date Reviewed 03/30/24 03/30/24 05:32 COLST On File at [facility] Yes 05/26/23 11:24 COLST Date Scanned 11/30/22 05/26/23 11:24 Code Status Resuscitation Status DNR/DNI Portal Pt does not currently have a portal and education provided: Yes Insurance Coverage/Financial Issues Insurance: Medicaid Medicare ACO Member: No Care Team Visit Care Team Role Provider Type Henrik Mukherjee Primary Care Provider NON-[facility] STAFF PHYSICIAN Rut Scanlon MD Emergency Provider [facility] STAFF PHYSICIAN Kleber Verduzco Admit Provider NON-[facility] STAFF PHYSICIAN Attending Provider Discharge Anticipated Barriers to Discharge: None Identified Patient/Family Education Needs: Review discharge instructions, discuss Ask Me Three Transportation: EMS Plan: Anticipate Cesario will discharge back to [facility] when medically ready. Pt will follow up with community/facility providers and his discharge plan of care as instructed. Transportation will be dependent on Mobility. CM will follow. PFSH All Active Problems (Updated 03/30/24 @ 06:52 by Kleber Verduzco) CKD (chronic kidney disease) stage 3, GFR 30-59 ml/min (Chronic) Hyperglycemia without ketosis (Chronic) Recurrent aspiration pneumonia (Acute) UTI (urinary tract infection) due to urinary indwelling catheter (Acute) Hypoxemia (Chronic) Aspiration pneumonia (Acute) UTI (urinary tract infection) (Acute) Sepsis (Acute) Palliative care encounter (Acute) Hypoalbuminemia (Acute) Alkaline phosphatase elevation (Acute) Speech disorder (Acute) Anemia (Chronic) Communication deficit (Acute) Unable to talk for about a year due to parkinsonism Suggest using squares of paper with yes and no written in large print with sharpie. Insist that patient hand correct answer. Test with known answers before hand. Parkinsons disease (Chronic) Gastrostomy in place (Acute) Recurrent UTI (Acute) Pneumonia (Acute) Schizoaffective disorder (Acute) Palliative care patient (Acute) Sacral decubitus ulcer (Chronic) Oropharyngeal dysphagia (Acute) B12 deficiency (Acute) Folate deficiency (Acute) Dysphagia (Acute) PEG (percutaneous endoscopic gastrostomy) status (Acute) Advanced care planning/counseling discussion (Acute) Urinary retention (Chronic) Medical History Acute kidney failure Recurrent postcoital urinary tract infection Bladder stones Other schizoaffective disorders On enteral nutrition Mass of thyroid gland Indwelling Wilkerson catheter present Unable to walk in [facility] transfer Parkinsonism due to drugs Chronic kidney disease BPH (benign prostatic hyperplasia) Atrial fibrillation Hx of hyperlipidemia HTN (hypertension) Social History Smoking/Tobacco Use Status: Never Smoking risk assessment performed?: Yes Alcohol Intake: never Substance use type: does not use Housing: [facility] Additional Social history: Pateint live at the [facility] SDOH(Care Management) Screening Will the Patient Participate in the Screening?: Unable to obtain
[2024-03-30] MEDS: Enoxaparin 40 MG/0.4 ML SYR SC (08:33)
[2024-03-30] MEDS: Normal Saline Flush 10 ML SYR IVP ×3 (08:33→20:59)
[2024-03-30] MEDS: Benztropine 1 MG TAB NG (09:44)
[2024-03-30] MEDS: dilTIAZem 30 MG TAB NG (09:44)
[2024-03-30] MEDS: Cyanocobalamin 500 MCG TAB 1000 MCG NG (09:44)
[2024-03-30] MEDS: Aspirin 81 MG CHEW NG (09:44)
[2024-03-30] MEDS: Famotidine 20 MG TAB 40 MG NG (09:44)
[2024-03-30] MEDS: Acetaminophen 325 MG TAB NG (09:44)
[2024-03-30] MEDS: PIPERACILLIN/TAZO 3.375 GM in Normal Saline 50 ML IVPB ×3 (10:35→22:00)
[2024-03-30] MEDS: Multivitamin w/Minerals TAB 1 TAB PO (11:35)
--- NOTE | 2024-03-30 11:56 | W.NUTCONSULT ---
Date of service: 03/30/24 Time of Service: 11:56 Nutritional Consult ASSESSMENT: Mr. Moralez is admitted with sepsis and acute renal failure. His PMH is notable for stage 3 kidney disease as well as pressure injury stage 1. He has a PEG tube and receives 5 bolus feeds of one carton of TwoCal HN daily. This regimen provides 2375 kcal/day and 99.5 g of protein. It has minimal fiber of 6 grams/day and 830 ml of free water. He is 185 cm and 87.7 kg. His BMI is 25.5 kg/m2 which is wnl for his age. His estimated energy needs are 2358 kcal/day (REE x 1.1 (activity factor) and 1.3 (stress factor) Estimated protein needs are 105g-114 g/day (1.2-1.3g/kg/day) Estimated fluid needs are 2300 ml/day (1ml/kcal provided/day) At this time, Mr. Moralez does not meet any criteria for malnutrition. NUTRITIONAL DIAGNOSIS: Inability to take oral foods and fluids related to advanced Parkinsons. INTERVENTION: In order for us to provide equivalent to what Mr. Moralez as been getting at his SNF and taking in to account that the hospitalist here would like him to have continuous feeds, the following is recommended: Osmolite 1.5 espinoza with a goal rate of 66 ml/hr continuously. Start at 30 ml/hr x 4 hours. Check residuals. Increase rate by 15 ml/hr q 4 hours until goal rate is met. This feeding provides 1220 ml of free water daily. Mr. Moralez may need an additional 1200 ml of free water per day to maintain an adequate hydration status. Of note, per my nutrition assessment, I agree with the regimen he was getting at the SNF. MONITORING AND EVALUATION: 1. Monitor tolerance to tube feeding. 2. Monitor weight and hydration. 3. Evaluate nutrition care plan ongoing and adjust as needed. Time Spent in Nutritional Counseling and Treatment: 15 minutes
[2024-03-30] MEDS: Insulin Aspart 300 UNITS/3 ML PEN SC (13:47)
--- NOTE | 2024-03-30 14:18 | W.PM.PROGNOT ---
Date of Service Date of service: 03/30/24 Time of Service: 14:18 Assessment and Plan Assessment and plan (1) Sepsis: Start date: 03/30/24 Status: Acute Assessment and plan: jeanne meets CMS guidelines for sepsis although not septic shock. Likely source is recurrent UTI. Nursing changed his SPC this morning, a fresh urine culture will be sent. blood cultures are pending. He remains on Zosyn (also was given vancomycin in the ED but this was not continued. last urine culture grew Proteus mirabilis which was pansensitive excpet to macrodantin. We will continue w/ the Zosyn adjusted for his renal insufficiency and modify based on cultures. BP has been a bit low this afternoon but was given his diltiazem this morning, I have changed the frequency to diltiazem 30 mg q12h w/ holding paraemeter. he remain on iv fluids of LR at 150 ml/hr. He may benefit from a bolus. I think overall his sepsis picture is improving in that he is making urine and he is more alert and responsive from the way he was described in the E.D. I do not think he has pneumonia, his CXR did not support this but his basilar breath sounds sound coarse but this could be atelectasis; he is certainly at risk for pneumonia/aspiration. We have restarted tube feedings and will slowly titrate up as tolerated. Professional time spent interviewing and examining patient, discussion of goals of care with hospital team (care management, nursing and consulting professionals) was 45 minutes. Qualifiers: Sepsis type: sepsis due to unspecified organism Sepsis acute organ dysfunction status: with acute organ dysfunction Severe sepsis acute organ dysfunction type: acute renal failure Acute renal failure type: unspecified Severe sepsis shock status: without septic shock Qualified Code(s): A41.9 - Sepsis, unspecified organism; R65.20 - Severe sepsis without septic shock; N17.9 - Acute kidney failure, unspecified (2) UTI (urinary tract infection) due to urinary indwelling catheter: Start date: 03/30/24 Status: Acute Assessment and plan: as above Qualifiers: Indwelling urinary catheter type: cystostomy catheter Encounter type: sequela Qualified Code(s): T83.510S - Infection and inflammatory reaction due to cystostomy catheter, sequela; N39.0 - Urinary tract infection, site not specified (3) Recurrent aspiration pneumonia: Start date: 03/30/24 Status: Suspected Assessment and plan: currently on RA at 97%. continue prn nebulizers, monitor; if oxygen status worsens then recheck CXR or ultrasound his lungs. (4) Atrial fibrillation: Assessment and plan: was bradycardia w/ borderline BP this morning/early afternoon, I have decr frequency of his diltiazem, will put him on telemetry for next 24 to 48hr. Qualifiers: Atrial fibrillation type: paroxysmal Qualified Code(s): I48.0 - Paroxysmal atrial fibrillation (5) Hypoxemia: Status: Chronic Assessment and plan: seems to have resolved. probably related to his decr LOC, now more awake and responsive and not dyspneic; may have some atelectasis (6) CKD (chronic kidney disease) stage 3, GFR 30-59 ml/min: Status: Chronic Qualifiers: Chronic kidney disease stage 3 subtype: stage 3a (GFR 45-59) Qualified Code(s): N18.31 - Chronic kidney disease, stage 3a (7) Hyperglycemia without ketosis: Status: Chronic Assessment and plan: monitor blood sugars, HbA1c was 5.9% so not at diabetic threshold but pre-diabetic (8) Sacral decubitus ulcer: Status: Chronic Assessment and plan: will have nursing assess and make recommendations on dressing. Qualifiers: Pressure injury stage: stage 1 Qualified Code(s): L89.151 - Pressure ulcer of sacral region, stage 1 (9) Parkinsons disease: Status: Chronic Assessment and plan: End-stage and continued home medication to be administered through NG tube. Qualifiers: Dyskinesia presence: unspecified whether dyskinesia Fluctuating manifestations: unspecified whether manifestations fluctuate Qualified Code(s): G20.A1 - Parkinson's disease without dyskinesia, without mention of fluctuations (10) Anemia: Status: Chronic Assessment and plan: stable at 8.8 gm, monitor daily; no signs/sx of bleeding. Qualifiers: Anemia type: due to chronic kidney disease Chronic kidney disease stage: stage 3 (moderate) Chronic kidney disease stage 3 subtype: stage 3a (GFR 45-59) Qualified Code(s): N18.31 - Chronic kidney disease, stage 3a; D63.1 - Anemia in chronic kidney disease Subjective Subjective Interval history since last seen: Cesario was admitted last night w/ UTI, pneumonia w/ sepsis (tachycardia, decreased LOC/CGS 7, tachypnea, febrile, [place] w/ likely source of infection from UTI +/- aspiration pneumonia. Patient is more alert, responsive this afternoon, looks at me w/ his eys although he is nonverbal but he cooperates w/ simple commands for his exam. Exam Narrative Exam Narrative: Cesario is awake, opens his eyes spontaneously and tracks me w/ his eyes, he is nonverbal but follows simple commands such as attempting to help move him to examine him although he very stiff from his Parkinsonism, arms are rigid Lungs: bibasilar rales, no wheezing Heart: regular but bradycardia rate in the 60's, no appreciable murmur or rub Abdomen: soft, nondistended, nontender to palpation, postive bowel sounds; SPC in place: draining clear bright orange urine (I reviewed his meds and his labs he did not get pyridium and his bilirubin is normal but he is on Entacapone which per pharmacy will cause bright orange urine discoloration Extremities; no edema, no cyanosis, pedal pulses present but weak, he has bilateral foot/heel air cushions on and MEG hose but I pulled hose up to examine his feet and ankles Neuro: nonverbal but does open eyes and looks at me, makes some verbal noises but nothing intelligible and he follows simple commands Objective Last Vital Signs Temp 37.0 C 03/30/24 12:06 Pulse 68 03/30/24 13:40 Resp 18 03/30/24 12:06 BP 106/50 L 03/30/24 13:40 Pulse Ox 95 03/30/24 13:40 Laboratory Results - last 24 hr 03/30/24 03/30/24 03/30/24 04:08 04:10 05:40 WBC 12.87 H RBC 3.06 L Hgb 8.8 L Hct 27.3 L MCV 89 MCH 28.8 MCHC 32.2 RDW 14.3 H Plt Count 299 MPV 9.7 Immature Gran % 0.3 Neutrophils % 90.2 Lymphocytes % 2.3 Monocytes % 7.0 Eosinophils % 0.0 Basophils % 0.2 Nucleated RBC % 0.0 Absolute Neutrophils 11.61 H Absolute Lymphocytes 0.30 L Absolute Monocytes 0.90 H Absolute Eosinophils 0.00 Absolute Basophils 0.03 RBC Morphology See Below Hypochromasia 1+ PT 11.7 H INR 1.2 H APTT 28.1 VBG pH 7.46 H VBG pCO2 31 L VBG pO2 56 VBG HCO3 22 L VBG Total CO2 21 L VBG O2 Saturation 91 VBG Base Excess -2 VBG Lactate 1.3 0.8 Sodium 136 Potassium 4.3 Chloride 101 Carbon Dioxide 23.2 Anion Gap 11.8 H BUN 38 H Creatinine 1.5 H Est GFR (CKD-EPI 2020) 47.65 Glucose 181 H Hemoglobin A1c Calcium 9.1 Total Bilirubin 0.4 AST 15 ALT 11 L Alkaline Phosphatase 117 H Total Protein 7.8 Albumin 2.8 L Procalcitonin < 0.1 Urine Color Yellow Urine Clarity Turbid Urine pH >= 9.0 H Ur Specific [place] 1.020 Urine Protein 100 H Urine Ketones Trace H Urine Blood Large H Urine Nitrite Positive H Urine Bilirubin Negative Urine Urobilinogen 0.2 Ur Leukocyte Esterase Large H Urine RBC >50 H Urine WBC >50 H Ur Epithelial Cells Negative Urine Crystals Negative Urine Bacteria Many Urine Casts Negative Urine Mucus Heavy Ur Culture Indicated? C&S Done As Ordered Urine Glucose Negative COVID-19 Source Nasopharynx SARS-CoV-2 (PCR) Negative Influenza Type A (PCR) Negative Influenza Type B (PCR) Negative RSV (PCR) Negative MRSA (TEM-PCR) 03/30/24 03/30/24 05:55 06:40 WBC RBC Hgb Hct MCV MCH MCHC RDW Plt Count MPV Immature Gran % Neutrophils % Lymphocytes % Monocytes % Eosinophils % Basophils % Nucleated RBC % Absolute Neutrophils Absolute Lymphocytes Absolute Monocytes Absolute Eosinophils Absolute Basophils RBC Morphology Hypochromasia PT INR APTT VBG pH VBG pCO2 VBG pO2 VBG HCO3 VBG Total CO2 VBG O2 Saturation VBG Base Excess VBG Lactate 1.5 H Sodium Potassium Chloride Carbon Dioxide Anion Gap BUN Creatinine Est GFR (CKD-EPI 2020) Glucose Hemoglobin A1c 5.9 H Calcium Total Bilirubin AST ALT Alkaline Phosphatase Total Protein Albumin Procalcitonin Urine Color Urine Clarity Urine pH Ur Specific [place] Urine Protein Urine Ketones Urine Blood Urine Nitrite Urine Bilirubin Urine Urobilinogen Ur Leukocyte Esterase Urine RBC Urine WBC Ur Epithelial Cells Urine Crystals Urine Bacteria Urine Casts Urine Mucus Ur Culture Indicated? Urine Glucose COVID-19 Source SARS-CoV-2 (PCR) Influenza Type A (PCR) Influenza Type B (PCR) RSV (PCR) MRSA (TEM-PCR) Negative Time Spent with Patient Time Spent with Patient: 35-49 minutes Time was spent: preparing to see the patient(eg.review tests), obtaining and/or reviewing separately otained hiistory, ordering medications,tests, procedures, referring, communicating with other health associate director career services, indepentently interpreting results and care coordination
[2024-03-30] MEDS: Lactated Ringers 1,000 ML 150 ML IV ×2 (16:14→21:14)
[2024-03-30] MEDS: Lactated Ringers 500 ML IV (17:32)
[2024-03-30 17:36] LABS: Lactate 1.3 mmol/L (0.6-1.4)
[2024-03-30 17:38] LABS: Abs Immature Grans 0.03 10^3/uL (0.0-0.06); Absolute Basophil Count 0.03 10^3/uL (0.0-0.2); Absolute Eosinophil Count 0.09 10^3/uL (0.0-0.7); Absolute Lymphocyte Count 0.99 10^3/uL (1.2-3.4); Absolute Monocyte Count 0.74 10^3/uL (0.1-0.8); Absolute Neutrophil Count 4.99 10^3/uL (1.2-6.7); Basophils % 0.4 %; Eosinophils % 1.3 %; HCT 25.6 % (40.0-50.0); Immature Grans % 0.4 %; Lymphocytes % 14.4 %; MCH 28.7 pg (27.0-33.0); MCHC 31.3 % (32.0-36.0); MCV 92 fL (80-95); MPV 9.5 fL (8.0-11.0); Monocytes % 10.8 %; Neutrophils % 72.7 %; Platelet Count 239 10^3/uL (130-400); RBC 2.79 10^6/uL (4.36-5.78); RDW 14.2 % (11.8-14.1); WBC 6.87 10^3/uL (4.4-10.8)
[2024-03-30 17:51] LABS: Anion Gap 6.6 mmol/L (3-11); BUN 35 mg/dL (7-18); CO2 26.4 mmol/L (21.0-32.0); CREATININE 1.4 mg/dL (0.70-1.30); Calcium 8.7 mg/dL (8.5-10.1); Chloride 105 mmol/L (98-107); Estimated GFR 51.77 (mL/min/1.73m2); Glucose 88 mg/dL (74-106); Potassium 3.9 mmol/L (3.5-5.1); Sodium 138 mmol/L (136-145)
[2024-03-31] VITALS (7 sets, daily range): BP systolic 90–130; BP diastolic 56–81; PULSE 78–97; RESP 18–24; TEMP 36.6–37.3; O2SAT 94–97
[2024-03-31] MEDS: Lactated Ringers 1,000 ML 150 ML IV (04:06)
[2024-03-31] MEDS: PIPERACILLIN/TAZO 3.375 GM in Normal Saline 50 ML IVPB ×4 (04:06→22:08)
[2024-03-31 06:55] LABS: HCT 25.7 % (40.0-50.0); MCH 28.5 pg (27.0-33.0); MCHC 31.1 % (32.0-36.0); MCV 92 fL (80-95); MPV 10.1 fL (8.0-11.0); Platelet Count 263 10^3/uL (130-400); RBC 2.81 10^6/uL (4.36-5.78); RDW 14.2 % (11.8-14.1); RDW-SD 47.8 fL; WBC 5.65 10^3/uL (4.4-10.8)
[2024-03-31 07:11] LABS: INR 1.2 (0.9-1.1); Prothrombin Time 11.5 sec (9.1-11.1)
[2024-03-31 07:19] LABS: ALT 11 U/L (16-63); AST 12 U/L (15-37); Albumin 2.4 g/dL (3.4-5.0); Alkaline Phosphatase 102 U/L (46-116); BUN 31 mg/dL (7-18); Bilirubin, Total 0.3 mg/dL (0.2-1.0); CREATININE 1.4 mg/dL (0.70-1.30); Calcium 8.8 mg/dL (8.5-10.1); Chloride 106 mmol/L (98-107); Estimated GFR 51.77 (mL/min/1.73m2); Glucose 124 mg/dL (74-106); Sodium 142 mmol/L (136-145)
[2024-03-31] MEDS: Famotidine 20 MG TAB 40 MG NG (08:09)
[2024-03-31] MEDS: Enoxaparin 40 MG/0.4 ML SYR SC (08:09)
[2024-03-31] MEDS: dilTIAZem 30 MG TAB NG ×2 (08:10→21:20)
[2024-03-31] MEDS: Cyanocobalamin 500 MCG TAB 1000 MCG NG (08:10)
[2024-03-31] MEDS: Benztropine 1 MG TAB NG (08:10)
[2024-03-31] MEDS: Aspirin 81 MG CHEW NG (08:11)
[2024-03-31] MEDS: Normal Saline Flush 10 ML SYR IVP ×3 (08:55→21:21)
[2024-03-31] MEDS: Multivitamin w/Minerals TAB 1 TAB PO (10:23)
[2024-03-31] MEDS: Lactated Ringers 1,000 ML 85 ML IV (12:47)
--- NOTE | 2024-03-31 15:09 | PGE_ITS ---
Date of Service Date of service: 03/31/24 Time of Service: 15:09 Assessment and Plan Assessment and plan (1) Sepsis: Start date: 03/30/24 Status: Acute Assessment and plan: seondary to UTI, blood cultures results are still pending, urine w/ Proteus mirabilis but sensitivities still pending; day #2 Zosyn (was given vancomycin in the ED but not continued). SPC changed yesterday by nursing Patient tolerating his tube feeds which are now up to goal rate Professional time spent interviewing and examining patient, discussion of goals of care with hospital team (care management, nursing and consulting professionals) was 45 minutes. Qualifiers: Sepsis type: sepsis due to unspecified organism Sepsis acute organ dysfunction status: with acute organ dysfunction Severe sepsis acute organ dysfunction type: acute renal failure Acute renal failure type: unspecified Severe sepsis shock status: without septic shock Qualified Code(s): A41.9 - Sepsis, unspecified organism; R65.20 - Severe sepsis without septic shock; N17.9 - Acute kidney failure, unspecified (2) UTI (urinary tract infection) due to urinary indwelling catheter: Start date: 03/30/24 Status: Acute Assessment and plan: as above Qualifiers: Indwelling urinary catheter type: cystostomy catheter Encounter type: sequela Qualified Code(s): T83.510S - Infection and inflammatory reaction due to cystostomy catheter, sequela; N39.0 - Urinary tract infection, site not specified (3) Atrial fibrillation: Assessment and plan: patient remains in NSR rates of 71 to 90, diltiazem frequency decreased to 30 mg bid d/t low BP and HR yesterday, better today.. Qualifiers: Atrial fibrillation type: paroxysmal Qualified Code(s): I48.0 - Paroxysmal atrial fibrillation (4) CKD (chronic kidney disease) stage 3, GFR 30-59 ml/min: Status: Chronic Assessment and plan: still w/ some azotemia w/ BUN 31 and creatinine 1.4, baseline is 22 to 24 and creatinine 1.0 to 1.1; I will continue iv fluids but decrease the rate now that he is tolerating tube feedings. can give some free water through his tube feeds. Qualifiers: Chronic kidney disease stage 3 subtype: stage 3a (GFR 45-59) Qualified Code(s): N18.31 - Chronic kidney disease, stage 3a (5) Anemia: Status: Chronic Assessment and plan: stable at 8.8 gm, monitor daily; no signs/sx of bleeding. 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 Qualifiers: Dyskinesia presence: unspecified whether dyskinesia Fluctuating manifestations: unspecified whether manifestations fluctuate Qualified Code(s): G20.A1 - Parkinson's disease without dyskinesia, without mention of fluctuations (7) Hyperglycemia without ketosis: Status: Acute Assessment and plan: monitor blood sugars, HbA1c was 5.9% so not at diabetic threshold but pre- diabetic, glucose has been 111 to 150 over past 24hr. (8) Sacral decubitus ulcer: Status: Chronic Assessment and plan: wound looks mild, barrier device or cream and off loading of pressure w/ turning side to side should be sufficient Qualifiers: Pressure injury stage: stage 1 Qualified Code(s): L89.151 - Pressure ulcer of sacral region, stage 1 Subjective Subjective Interval history since last seen: Cesario is more awake and interactive w/ nursing. When asked how he is feeling, he indicated ok. When asked if he had any pain he indicated not. Exam Narrative Exam Narrative: Cesario is alert, he has some sonorous breathing which seems to be upper airway noises, no cough, he tries to verbalize responses to questions although his speech is not clear, he interacts appropriately w/ me and nursing and follows commands Lungs: some upper airway noises but clears w/ coughing, base is clear to ausculatation Heart: regular, soft systolic murmur over apex, no gallop or thrill abdomen: soft, nontender, normal bowel sounds, SPC has been changed, draining some clots along w/ orange discolored urine (secondary to entacapone) Exteremties: no open sores, no edema Buttocks/coccyx: stage 1 decubitus which nursing tells me he came in with; no purulent drainage, mepilex has been applied as barrier Patient is stooling dark brown stool (not black) Objective Last Vital Signs Temp 37.2 C 03/31/24 11:50 Pulse 79 03/31/24 11:50 Resp 18 03/31/24 11:50 BP 90/63 L 03/31/24 11:50 Pulse Ox 95 03/31/24 11:50 Laboratory Results - last 24 hr 03/30/24 03/31/24 17:23 06:16 WBC 6.87 5.65 RBC 2.79 L 2.81 L Hgb 8.0 L 8.0 L Hct 25.6 L 25.7 L MCV 92 92 MCH 28.7 28.5 MCHC 31.3 L 31.1 L RDW 14.2 H 14.2 H Plt Count 239 263 MPV 9.5 10.1 Immature Gran % 0.4 Neutrophils % 72.7 Lymphocytes % 14.4 Monocytes % 10.8 Eosinophils % 1.3 Basophils % 0.4 Nucleated RBC % 0.0 Absolute Neutrophils 4.99 Absolute Lymphocytes 0.99 L Absolute Monocytes 0.74 Absolute Eosinophils 0.09 Absolute Basophils 0.03 PT 11.5 H INR 1.2 H VBG Lactate 1.3 Sodium 138 142 Potassium 3.9 4.0 Chloride 105 106 Carbon Dioxide 26.4 26.0 Anion Gap 6.6 10.0 BUN 35 H 31 H Creatinine 1.4 H 1.4 H Est GFR (CKD-EPI 2020) 51.77 51.77 Glucose 88 124 H Calcium 8.7 8.8 Magnesium 2.0 Total Bilirubin 0.3 AST 12 L ALT 11 L Alkaline Phosphatase 102 Total Protein 7.0 Albumin 2.4 L Time Spent with Patient Time Spent with Patient: 35-49 minutes Time was spent: preparing to see the patient(eg.review tests), ordering medications,tests, procedures, referring, communicating with other health care team assistant, indepentently interpreting results and care coordination
[2024-03-31] MEDS: Acetaminophen 325 MG TAB NG (22:12)
[2024-04-01] VITALS (7 sets, daily range): BP systolic 101–125; BP diastolic 62–89; PULSE 80–98; RESP 18–26; TEMP 36.4–37.3; O2SAT 92–96
[2024-04-01] MEDS: Lactated Ringers 1,000 ML 50 ML IV (03:45)
[2024-04-01] MEDS: PIPERACILLIN/TAZO 3.375 GM in Normal Saline 50 ML IVPB ×4 (03:50→21:42)
[2024-04-01 06:37] LABS: Abs Immature Grans 0.01 10^3/uL (0.0-0.06); Absolute Basophil Count 0.03 10^3/uL (0.0-0.2); Absolute Eosinophil Count 0.18 10^3/uL (0.0-0.7); Absolute Lymphocyte Count 0.83 10^3/uL (1.2-3.4); Absolute Monocyte Count 0.59 10^3/uL (0.1-0.8); Absolute Neutrophil Count 2.48 10^3/uL (1.2-6.7); Basophils % 0.7 %; Eosinophils % 4.4 %; HCT 25.4 % (40.0-50.0); Immature Grans % 0.2 %; Lymphocytes % 20.1 %; MCH 29.1 pg (27.0-33.0); MCHC 31.5 % (32.0-36.0); MCV 92 fL (80-95); MPV 9.3 fL (8.0-11.0); Monocytes % 14.3 %; Neutrophils % 60.3 %; Platelet Count 262 10^3/uL (130-400); RBC 2.75 10^6/uL (4.36-5.78); RDW 14.2 % (11.8-14.1); RDW-SD 47.6 fL; WBC 4.12 10^3/uL (4.4-10.8)
[2024-04-01 06:54] LABS: ALT 16 U/L (16-63); AST 17 U/L (15-37); Albumin 2.3 g/dL (3.4-5.0); Alkaline Phosphatase 98 U/L (46-116); Anion Gap 7.4 mmol/L (3-11); BUN 22 mg/dL (7-18); Bilirubin, Total 0.3 mg/dL (0.2-1.0); CO2 26.6 mmol/L (21.0-32.0); CREATININE 1.2 mg/dL (0.70-1.30); Calcium 8.7 mg/dL (8.5-10.1); Chloride 108 mmol/L (98-107); Estimated GFR 62.29 (mL/min/1.73m2); Glucose 131 mg/dL (74-106); Potassium 4.1 mmol/L (3.5-5.1); Sodium 142 mmol/L (136-145); Total Protein 6.9 g/dL (6.4-8.2)
[2024-04-01] MEDS: Enoxaparin 40 MG/0.4 ML SYR SC (08:08)
[2024-04-01] MEDS: Famotidine 20 MG TAB 40 MG NG (08:09)
[2024-04-01] MEDS: Multivitamin w/Minerals TAB 1 TAB PO (08:09)
[2024-04-01] MEDS: Cyanocobalamin 500 MCG TAB 1000 MCG NG (08:09)
[2024-04-01] MEDS: Benztropine 1 MG TAB NG (08:10)
[2024-04-01] MEDS: dilTIAZem 30 MG TAB NG ×2 (08:10→20:33)
[2024-04-01] MEDS: Aspirin 81 MG CHEW NG (08:10)
[2024-04-01] MEDS: Normal Saline Flush 10 ML SYR IVP ×3 (08:11→20:33)
[2024-04-01] MEDS: Erythromycin Ophth Oint 3.5 GM TUBE OU ×3 (08:19→20:32)
--- NOTE | 2024-04-01 09:17 | PDOC.CMPRO ---
Date of service: 04/01/24 Time of Service: 09:17 Care Management Progress Note Progress Note Text Progress Note Text: Cesario was lying in bed when CM met with him. His communication is limited to yes/no questions, which CM utilized the thumbs up/thumbs down method for. He stated that he is doing well, and he acknowledged that his discharge plan will be to return to [facility]. CM assisted Cesario by turning the volume on the TV which was muted upon arrival. CM communicated to admissions at [facility] that per MD, he will likely be ready for discharge tomorrow. Discharge Potential Discharge Needs: Consult Consult Services Needed: Other (Wound Consult) and PT Evaluation Anticipated Barriers to Discharge: Medical Status Patient/Family Education Needs: Review discharge instructions, discuss Ask Me Three Transportation: EMS Plan: Anticipate Cesario will discharge back to [facility] when medically ready. Pt will follow up with community/facility providers and his discharge plan of care as instructed. Transportation will be dependent on Mobility. CM will follow. SDOH(Care Management) Screening Will the Patient Participate in the Screening?: Unable to obtain
--- NOTE | 2024-04-01 13:35 | W.PM.PROGNOT ---
Date of Service Date of service: 04/01/24 Time of Service: 13:35 Assessment and Plan Assessment and plan (1) Severe sepsis: Status: Acute Assessment and plan: -met criteria on admission for severe sepsis with WBC 12.87, temp 101.4oF, HR, pulse 112, RR 31, source of infection being UTI, and an [place] with Cr 1.5 (baseline 1.0) -was given zosyn and vanc in the ED; vanc discontinued, now on zosyn day #3 -SPC changed on 03/30 by nursing staff -urine growing proteus, blood growing staph species; not aureus -will follow-up final culture results (2) UTI (urinary tract infection) due to urinary indwelling catheter: Start date: 03/30/24 Status: Acute Assessment and plan: -source of infection as noted above Qualifiers: Indwelling urinary catheter type: cystostomy catheter Encounter type: sequela Qualified Code(s): T83.510S - Infection and inflammatory reaction due to cystostomy catheter, sequela; N39.0 - Urinary tract infection, site not specified (3) Acute kidney injury superimposed on CKD: Status: Acute Assessment and plan: -Cr 1.5 on admission, recent baseline of 1 thought patient does have history of CKD -Cr improved to 1.2 on AM 04/01 -f/u AM BMP (4) Atrial fibrillation: Assessment and plan: -patient remains in NSR rates of 71 to 90 -diltiazem frequency decreased to 30 mg bid d/t low BP and HR on 03/31, has since been improved Qualifiers: Atrial fibrillation type: paroxysmal Qualified Code(s): I48.0 - Paroxysmal atrial fibrillation (5) Anemia: Status: Chronic Assessment and plan: -Hb has been stable at 8 -monitor daily; no signs/sx of bleeding. 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 Qualifiers: Dyskinesia presence: unspecified whether dyskinesia Fluctuating manifestations: unspecified whether manifestations fluctuate Qualified Code(s): G20.A1 - Parkinson's disease without dyskinesia, without mention of fluctuations (7) Hyperglycemia without ketosis: Status: Acute Assessment and plan: -monitor blood sugars, HbA1c was 5.9% so not at diabetic threshold but pre-diabetic, glucose has been 111 to 150 over past 24hr. (8) Sacral decubitus ulcer: Status: Chronic Assessment and plan: -wound looks mild, barrier device or cream and off loading of pressure w/ turning side to side should be sufficient Qualifiers: Pressure injury stage: stage 1 Qualified Code(s): L89.151 - Pressure ulcer of sacral region, stage 1 Subjective Subjective Interval history since last seen: Patient somewhat interactive today and was able to indicate that he has no complaints or concerns at this time. Exam Narrative Exam Narrative: fraile, chronically ill appearing older gentleman laying in bed in no acute distress, awake, alert speech continues to be unclear, heart RRR, lungs with mild audible upper airway sounds, abdomen soft, non-tender, non-distended Objective Last Vital Signs Temp 99.1 F 04/01/24 11:54 Pulse 86 04/01/24 11:54 Resp 20 04/01/24 11:54 BP 110/80 04/01/24 11:54 Pulse Ox 94 04/01/24 11:54 Laboratory Results - last 24 hr 04/01/24 06:25 WBC 4.12 L RBC 2.75 L Hgb 8.0 L Hct 25.4 L MCV 92 MCH 29.1 MCHC 31.5 L RDW 14.2 H Plt Count 262 MPV 9.3 Immature Gran % 0.2 Neutrophils % 60.3 Lymphocytes % 20.1 Monocytes % 14.3 Eosinophils % 4.4 Basophils % 0.7 Nucleated RBC % 0.0 Absolute Neutrophils 2.48 Absolute Lymphocytes 0.83 L Absolute Monocytes 0.59 Absolute Eosinophils 0.18 Absolute Basophils 0.03 Sodium 142 Potassium 4.1 Chloride 108 H Carbon Dioxide 26.6 Anion Gap 7.4 BUN 22 H Creatinine 1.2 Est GFR (CKD-EPI 2020) 62.29 Glucose 131 H Calcium 8.7 Total Bilirubin 0.3 AST 17 ALT 16 Alkaline Phosphatase 98 Total Protein 6.9 Albumin 2.3 L Time Spent with Patient Time Spent with Patient: >50 minutes Time was spent: preparing to see the patient(eg.review tests), obtaining and/or reviewing separately otained hiistory, ordering medications,tests, procedures, referring, communicating with other health healthcare marketer, indepentently interpreting results, counseling the patient and care coordination
--- NOTE | 2024-04-01 15:25 | DI.RAD_ITS ---
Exam(s) XR PORTABLE CHEST AP EXAM: XR PORTABLE CHEST AP CLINICAL HISTORY: course breath sounds TECHNIQUE: 2D digital imaging was performed. COMPARISON: CR,XR XR PORTABLE CHEST AP from 03/30/2024 FINDINGS: Exam is limited by suboptimal pulmonary inflation and under penetration. LUNGS: Bibasilar atelectasis. No gross evidence of pulmonary consolidation. No pleural abnormality seen. HEART: Not well evaluated due to poor pulmonary inflation. AORTA: Ectatic. Calcified. BONES: Degenerative changes in the spine. Soft tissues: Unremarkable. IMPRESSION: Extremely limited exam. Bibasilar atelectasis. DATA REPOSITORY: RADIATION DOSE DELIVERED:
--- NOTE | 2024-04-01 16:17 | PHA.REVIEW2 ---
Pharmacy Admission Review Admission Clinical Review Admission Pharmacy Review: Acute kidney injury superimposed on CKD (Acute) Severe sepsis (Acute) Hyperglycemia without ketosis (Acute) UTI (urinary tract infection) due to urinary indwelling catheter (Acute) Sepsis (Acute) No Known Allergies Allergy (Verified 01/09/24 22:19) Resuscitation Status DNR/DNI Height 6 ft 1 in Weight 93.4 kg Comments Comments/Follow Ups: Watch VS, BG, SCr, H/H, labs for culture results and for med changes (possible renal dose adjustments, administration routes/make sure PO meds can be given NG) Pharmacy Admission Review Renal Dosing Renal Dosing: BUN 22 mg/dL (7-18) H 04/01/24 06:25 Creatinine 1.2 mg/dL (0.70-1.30) 04/01/24 06:25 Medications needing adjustments: Reviewed (Crcl ~68 mL/min current meds okay) Anticoagulation Anticoagulation: Hgb 8.0 g/dL (13.5-17.5) L 04/01/24 06:25 Hct 25.4 % (40.0-50.0) L 04/01/24 06:25 Plt Count 262 10^3/uL (130-400) 04/01/24 06:25 INR 1.2 (0.9-1.1) H 03/31/24 06:16 Creatinine 1.2 mg/dL (0.70-1.30) 04/01/24 06:25 DVT Prophylaxis: Reviewed Medications: Enoxaparin Opiate Usage Evaluate Pain Scale/Pains Meds: N/A Relevant Labs Relevant Labs: Sodium 142 mmol/L (136-145) 04/01/24 06:25 Potassium 4.1 mmol/L (3.5-5.1) 04/01/24 06:25 Chloride 108 mmol/L (98-107) H 04/01/24 06:25 Magnesium 2.0 mg/dL (1.8-2.4) 03/31/24 06:16 Electrolytes, C-Reactive P, ESR: Reviewed DM Control DM Control: Glucose 131 mg/dL (74-106) H 04/01/24 06:25 Hemoglobin A1c 5.9 % (<5.7) H 03/30/24 06:40 Finger Stick Blood Glucose 121 Finger Stick Blood Glucose 121 Finger Stick Blood Glucose 121 DM Control: Reviewed Insulin Dosing, Diabetic Medication: sliding scale insulin aspart ordered Q6H Cardiac Review BP, HR, EF%: Reviewed QTc Review QTc: N/A IV to PO Switch IV Medications: Reviewed Home Meds Home Med List reviewed: Reviewed Relevent Home Meds Not ordered & why?: fosfomycin (looks like this rx should have been finished), silver sulfadiazine (ordered then discontinued) Current Meds Current Medication Order Review: Intervened (Adjusted two PRN meds so they will cross over into pyxis correctly.) Pharmacy Antibiotic Review Pharmacy Antibiotic Activity: C/S review and Reviewed, no change Comments: One blood culture growing staph (not aureus), one is no growth at 48 hours. Repeat blood cultures are both no growth at 24 hours. Urine culture is growing proteus sp. Zosyn continues (day 3). Comments Comments/Follow Ups: Watch VS, BG, SCr, H/H, labs for culture results and for med changes (possible renal dose adjustments, administration routes/make sure PO meds can be given NG)
[2024-04-01] MEDS: Acetaminophen 325 MG TAB NG (21:11)
[2024-04-02] MEDS: Insulin Aspart 300 UNITS/3 ML PEN SC ×3 (00:35→12:33)
[2024-04-02] MEDS: Lactated Ringers 1,000 ML 50 ML IV (00:39)
[2024-04-02 03:10] VITALS: BP 122/80; PULSE 84; RESP 16; TEMP 36.9; O2SAT 95
[2024-04-02] MEDS: PIPERACILLIN/TAZO 3.375 GM in Normal Saline 50 ML IVPB (04:12)
[2024-04-02 06:49] LABS: HCT 26.9 % (40.0-50.0); HGB 8.3 g/dL (13.5-17.5); MCH 28.4 pg (27.0-33.0); MCHC 30.9 % (32.0-36.0); MCV 92 fL (80-95); MPV 9.6 fL (8.0-11.0); Platelet Count 316 10^3/uL (130-400); RBC 2.92 10^6/uL (4.36-5.78); RDW 14.3 % (11.8-14.1); RDW-SD 47.9 fL; WBC 4.66 10^3/uL (4.4-10.8)
[2024-04-02 07:04] LABS: Anion Gap 9.4 mmol/L (3-11); BUN 17 mg/dL (7-18); CO2 26.6 mmol/L (21.0-32.0); CREATININE 1.3 mg/dL (0.70-1.30); Calcium 8.9 mg/dL (8.5-10.1); Chloride 107 mmol/L (98-107); Estimated GFR 56.58 (mL/min/1.73m2); Glucose 131 mg/dL (74-106); Potassium 4.2 mmol/L (3.5-5.1); Sodium 143 mmol/L (136-145)
[2024-04-02 07:06] LABS: Magnesium 2.4 mg/dL (1.8-2.4)
[2024-04-02 07:30] VITALS: BP 129/78; PULSE 91; RESP 20; TEMP 37.2; O2SAT 94
[2024-04-02] MEDS: Benztropine 1 MG TAB NG (09:14)
[2024-04-02] MEDS: Enoxaparin 40 MG/0.4 ML SYR SC (09:14)
[2024-04-02] MEDS: Cyanocobalamin 500 MCG TAB 1000 MCG NG (09:14)
[2024-04-02] MEDS: dilTIAZem 30 MG TAB NG (09:14)
[2024-04-02] MEDS: Aspirin 81 MG CHEW NG (09:14)
[2024-04-02] MEDS: Erythromycin Ophth Oint 3.5 GM TUBE OU (09:15)
[2024-04-02] MEDS: Normal Saline Flush 10 ML SYR IVP ×2 (09:15→12:30)
--- NOTE | 2024-04-02 10:25 | IN_ITS ---
PT Notes Visit Reasons: Sepsis Physical Therapy Inpatient Initial Evaluation Date: 04/02/2024 Referring Doctor: Kleebr Verduzco MD PT Orders: PT CONSULT: Limited ability. Extended stay-weakness. Parkinson's with limited ability Precautions: Fall. Standard. Dysphagia. Keep HOB at least 40 degrees at all times. Patient Profile/Admitting Diagnosis: Cesario is a 79-year-old male with Parkinson's disease admitted with diagnoses of sepsis, UTI, recurrent aspiration pneumonia, hypoxemia, hyperglycemia, sacral decubitus ulcer, CKD, anemia, anemia and atrial fibrillation presented to the ER on 12/10/22 from rehab facility with fever, altered mental status, and possible aspiration. Also found to have sacral decubitous ulcer. PMHX: All Active Problems (Updated 03/30/24 @ 06:52 by Kleber Verduzco) CKD (chronic kidney disease) stage 3, GFR 30-59 ml/min (Chronic) Hyperglycemia without ketosis (Chronic) Recurrent aspiration pneumonia (Acute) UTI (urinary tract infection) due to urinary indwelling catheter (Acute) Hypoxemia (Chronic) Aspiration pneumonia (Acute) UTI (urinary tract infection) (Acute) Sepsis (Acute) Palliative care encounter (Acute) Hypoalbuminemia (Acute) Alkaline phosphatase elevation (Acute) Speech disorder (Acute) Anemia (Chronic) Communication deficit (Acute) Unable to talk for about a year due to parkinsonism Suggest using squares of paper with yes and no written in large print with sharpie. Insist that patient hand correct answer. Test with known answers before hand. Parkinsons disease (Chronic) Gastrostomy in place (Acute) Recurrent UTI (Acute) Pneumonia (Acute) Schizoaffective disorder (Acute) Palliative care patient (Acute) Sacral decubitus ulcer (Chronic) Oropharyngeal dysphagia (Acute) B12 deficiency (Acute) Folate deficiency (Acute) Dysphagia (Acute) PEG (percutaneous endoscopic gastrostomy) status (Acute) Advanced care planning/counseling discussion (Acute) Urinary retention (Chronic) Medical History Acute kidney failure Recurrent postcoital urinary tract infection Bladder stones Other schizoaffective disorders On enteral nutrition Mass of thyroid gland Indwelling Wilkerson catheter present Unable to walk in -[facility] transfer Parkinsonism due to drugs Chronic kidney disease BPH (benign prostatic hyperplasia) Atrial fibrillation Hx of hyperlipidemia HTN (hypertension) Social History/Home Situation: SNF resident. Totally dependent with all bed to chair/wheelchair transfers per PLOF. Needs assistnce with pressure relief in bed. Equipment Owned/DME: F[facility], wheelchair Subjective: N/A. Non-verbal. Is able to answer yes/no questions. Agreeable to doing today's session. Grimaced when his R leg was moved, felt better whne a pillow was placed under it. Objective: General Observation: Resting in bed. Quarterturned to L. Telemetry monitoring in place. PEG tube in place, feeding ongoing. Mental Status: Able to comprehend questions, answers to yes/no questions. Pain: Grimaced when R leg was moved and when patient was assisted to sitting ROM: Right Upper Extremity: Shoulder Flexion WFL. Shoulder abduction WFL. Elbow flexion WFL. Wrist flexion WFL. Functional opening and closing of hand WFL. Left Upper Extremity: Shoulder Flexion WFL. Shoulder abduction WFL. Elbow flexion WFL. Wrist flexion WFL. Functional opening and closing of hand WFL. Right Lower Extremity: Hip flexion allows up to 20 degrees. Hip abduction about 10 degrees. Knee flexion about 30 degrees. Ankle dorsiflexion to neutral only. Ankle plantarflexion WFL. Left Lower Extremity: Hip flexion allows up to 20 degrees. Hip abduction about 10 degrees. Knee flexion about 30 degrees. Ankle dorsiflexion to neutral only. Ankle plantarflexion WFL. Strength: Right Upper Extremity: Shoulder flexors 3/5. Shoulder abductors 3/5. Elbow flexors 3/5. Elbow extensors 3/5. Coating Machine Helper strong. Left Upper Extremity: Shoulder flexors 3/5. Shoulder abductors 3/5. Elbow flexors 3/5. Elbow extensors 3/5. Coating Machine Helper strong. Right Lower Extremity: Hip flexors 2-/5. Hip abductors 2-/5. Knee flexors 2-/5. Knee extensors 2-/5. Ankle dorsiflexors 3-/5. Ankle plantarflexors 3-/5. Left Lower Extremity: Hip flexors 2-/5. Hip abductors 2-/5. Knee flexors 2-/5. Knee extensors 2-/5. Ankle dorsiflexors 3-/5. Ankle plantarflexors 3-/5. Sensation: Intact as to pain and pressure on bilateral lower extremities. Bed Mobility/Transfers: Moderate cueing provided for use of B hands as needed for support, movement sequence, AD management, and posture to reduce fall risk and minimize pain report Rolling: maximum assist of 2 Supine to sit: maximum assist of 2 Sit to supine: maximum assist of 2; was able to tolerate at least 5 minutes before needing to go back down to bed with assist of LANDSCAPE HORTICULTURE INSTRUCTOR Yumiko Gait: Unable Balance: Static Sitting: Poor Dynamic Sitting: Unable Static Standing: Unable Dynamic Standing: Unable Special Tests: Mobility Limitations Standardized Measure [facility] AM-PAC 6 clicks Basic Mobility Inpatient Short Form: Raw Score: 6 CMS Score: 100% THERA EX: Provided verbal and visual cues to perform B UE/LE range of motion x 10 reps to maitain/increase joint flexibility: shoulder flexion, hor abd/add, heel slides, ankle Df/PF Facilitated core activation/engagement while having patient pull on B bed rails to bring trunk into flexion from 40 degrees up to 50-60 degrees of HOB angle x 5 requiring minimal assist from PT. Informed Consent/Education: Patient instructed in purpose of PT consult and plan of care. Agreeable to proceed with established PT POC to achieve personal goals. Assessment: Cesario is a 79-year-old male with Parkinson's disease admitted with diagnoses of sepsis, UTI, recurrent aspiration pneumonia, hypoxemia, hyperglycemia, sacral decubitus ulcer, CKD, anemia, anemia and atrial fibrillation presented to the ER on 12/10/22 from rehab facility with fever, altered mental status, and possible aspiration. Also found to have sacral decubitous ulcer. Patient tolerated static sitting for about 5 minutes at edge of bed with moderate assist of PT, after which patient needed maximal assiatance of 2 for sit to supine. Patient has been chronically non-ambulatory and bed-bound in SNF requiring mechanical lift for all bed to chair transers. Patient presents with clinical signs and symptoms consistent with current/admitting diagnoses that have resulted to mobility limitations, gait instability, generalized weakness, and impairment of motor control as demonstrated by the following impairment level findings: 1. Decreased strength to major muscle groups 2. Impaired sitting balance 3. Impaired activity tolerance 4. Limitation of joint range of motion in shoulders and hips 5. Pushes posteriorly significantly Impairments are contributing to the following functional limitations: 1. Dependent bed mobility skills 2. Dependent with transfers 3. Dependent for ADL performance Patient is assessed as a 84528 high complexity based on the following: History: 79 year old male with impairment level findings, functional limitations, and past medical history as indicated above Examination: Demonstrable impairment in strength, balance, and mobility level with underlying impairments and functional limitations as documented above Presentation: Evolving Decision Makin high complexity Goals: Goals x1 week 1. Supine-Sit: minimal assist using bed rail for support 2. Sit-Supine: minimal assist using bed rail for support 3. Sit-Stand: minimal assist using bed rail for support 4. Stand-Sit: minimal assist using bed rail for support 5. Minimal assist with bed to wheelchair transfer with STEDY lift Plan of Care/Treatment Plan: 1-2x/day, 7 days/week x1 week. Plan of care has been reviewed with the STITCH BONDING MACHINE TENDER HELPER providing the service under Physical Therapy direction. Initiate Physical Therapy intervention for strengthening, bed mobility, transfers, gait, stairs, balance training, and use of assistive device. Discharge Plan DISCHARGE RECOMMENDATIONS: Return SNF for continued rehabilitation to work on sitting balance and tolerance to allow for safe seating during meals and and ADl performance TREATMENT CODE/TIME: 06211 x 25 minutes for 1 unit, 79292 x 12 minutes for 1 unit (1:25-11:02) Thank you for the opportunity to participate in the care of this patient. Penelope Cruz PT, DPT, CLT [facility] [place], [place]
[2024-04-02 11:10] VITALS: BP 102/63; PULSE 90; RESP 20; TEMP 37.2; O2SAT 96
--- NOTE | 2024-04-02 11:48 | NUR.NOTE ---
Accessed chart to cancel EKG orders due to no EKG's in [facility] Nursing Note:
[2024-04-02] MEDS: Pantoprazole 40 MG VIAL IVP (12:29)
[2024-04-02] MEDS: Multivitamin w/Minerals TAB 1 TAB PO (12:30)
[2024-04-02] MEDS: Cefpodoxime 200 MG TAB PO (12:30)
--- NOTE | 2024-04-02 13:30 | W.PM.DS.N ---
Date of service: 04/02/24 Time of Service: 13:30 DS: Diagnosis Discharge Diagnosis (1) Severe sepsis: Status: Acute Asessment and Plan: -met criteria on admission for severe sepsis with WBC 12.87, temp 101.4oF, HR, pulse 112, RR 31, source of infection being UTI, and an [place] with Cr 1.5 (baseline 1.0) -was given zosyn and vanc in the ED; vanc discontinued, now on zosyn day #3 -SPC changed on 03/30 by nursing staff -urine growing proteus, blood growing staph species; not aureus -Proteus bryant-sensitive, will have additional 2 days of PO cefpodoxime (2) UTI (urinary tract infection) due to urinary indwelling catheter: Status: Acute Asessment and Plan: -as noted above (3) Acute kidney injury superimposed on CKD: Status: Acute Asessment and Plan: -was as high as 1.5, down to 1.2 as of 04/01 (4) Atrial fibrillation: Asessment and Plan: -decreased dose to 30mg BID due to bradycardia, HR improved on decreased dose (5) Anemia: Status: Chronic (6) Parkinsons disease: Status: Chronic (7) Hyperglycemia without ketosis: Status: Acute (8) Sacral decubitus ulcer: Status: Chronic Discharge Plan Disposition Patient Disposition: [facility](SNF) Condition: Good Discharge Details Reason For Visit: Sepsis Admit Date/Time: 03/30/24 05:25 Admit Provider: Kleber Verduzco Attending Provider: Kleber Verduzco Primary Care Provider: Henrik Mukherjee Hospital Course Hospital Course: Patient initially presented with signs and symptoms consistent with severe sepsis secondary to urinary tract infection as well as [place] on CKD. He was treated with Vanco Zosyn in the emergency department, vancomycin was immediately discontinued however, his urine was shown to be growing Proteus and was determined that he would benefit from an additional 2 days of cefpodoxime at discharge. Also wrote for him to hold his famotidine during the 2 days that he is taking the cefpodoxime. Home Meds and New Rx's Prescriptions: New cefpodoxime 200 mg Tablet 200 mg PO BID Qty: 5 0RF Continued ipratropium-albuterol 0.5 mg-3 mg(2.5 mg base)/3 mL solution for nebulization 3 ml inhalation Q6H PRN Nutren 2.0 0.08 gram-2 kcal/mL liquid 240 ml feeding tube .COMPLEX Qty: 6000 0RF Rx Instructions: 240 mL via feeding tube 5 times a day; famotidine 20 mg tablet 40 mg feeding tube DAILY polyethylene glycol 3350 [Miralax] 17 gram/dose powder See Rx Instructions PO DAILY PRN PRN Rx Instructions: 1 scoop MWF and addl PRN orally daily, as needed PRN; cyanocobalamin (vitamin B-12) 500 mcg tablet 1,000 mcg feeding tube DAILY Qty: 1 0RF amantadine HCl 50 mg/5 mL solution 100 mg feeding tube TID fosfomycin tromethamine 3 gram packet See Rx Instructions .ROUTE .COMPLEX Qty: 1 0RF Rx Instructions: 3 g orally per g tube every 3 days x 3 doses magnesium hydroxide [Milk of Magnesia] 400 mg/5 mL Suspension 30 ml PO BID PRN PRN aspirin 81 mg Tablet,Chewable 81 mg feeding tube DAILY One Daily Multi-Vit w-Mineral 4.5 mg iron Tablet 1 tab PO DAILY@1000 Qty: 0 0RF acetaminophen 325 mg tablet 650 mg feeding tube Q6H PRN (Reason: Fever) silver sulfadiazine [Silvadene] 1 % Cream 25 g topical DAILY Qty: 0 0RF carbidopa-levodopa 25-250 mg Tablet 1 tab feeding tube QID@0700,1100,1600,2000 Qty: 30 0RF entacapone 200 mg Tablet 200 mg NG QID@0700,1100,1600,2000 Qty: 30 0RF benztropine 1 mg tablet 1 mg feeding tube DAILY Qty: 0 0RF diltiazem HCl 30 mg tablet 30 mg PO TID Discharge Instructions Activity:: Activity as Tolerated Equipment/Supplies:: No Equipment Needed Diet:: As Tolerated Discharge Orders Discharge Orders: Discharge Order (Routine); Ordered 04/02/24 Ordered By: Shmuel Lyons DS: Summary Time Spent with Patient providing and/or coordinating discharge services: Greater than 30 minutes Status at Discharge Functional status at discharge: independent ambulation Overall status at discharge: patient is back to baseline Mental Status: mental status grossly normal Speech and Movement: speech and movement normal Mood: congruent mood Affect: normal affect Quality:SDOH Health Related Social Needs: Health related social needs details Pt currently resides at the [facility]. Exam Narrative Exam Narrative: fraile, chronically ill appearing older gentleman laying in bed in no acute distress, awake, alert speech continues to be unclear, heart RRR, lungs with mild audible upper airway sounds, abdomen soft, non-tender, non-distended Psych Mental Status: mental status grossly normal Speech and Movement: speech and movement normal Mood: congruent mood Affect: normal affect DS: Data Vitals/I&O Vitals and I&O: Vital Signs Temperature 99.0 F 04/02/24 11:10 Temperature Source Skin 04/02/24 11:10 Pulse 90 04/02/24 11:10 Pulse Rhythm Regular 04/02/24 09:42 Respiratory Rate 20 04/02/24 11:10 Respiratory Effort Normal, Non-Labored 04/02/24 09:42 Respiratory Depth Normal 04/02/24 09:42 Respiratory Pattern Normal 04/02/24 09:42 Blood Pressure 102/63 04/02/24 11:10 Blood Pressure Position Supine 03/30/24 03:44 Pulse Oximetry 96 04/02/24 11:10 Oxygen Delivery Method Room Air 04/02/24 11:10 Oxygen Flow Rate 0 04/02/24 11:10 Pain Level 0 04/02/24 11:10 Comment RN Notified 03/30/24 20:19 Intake & Output 04/01/24 04/02/24 04/02/24 17:59 05:59 17:59 Intake Total 100 / 100 1405 / 1505 598 / 598 Output Total 1625 / 1625 900 / 2525 200 / 200 Balance -1525 / -1525 505 / -1020 398 / 398 Weight 204 lb 2.369 oz Intake: IV 100 / 100 1050 / 1150 10 10 Intake, Tube Feeding Amount 355 / 355 588 / 588 Output: Urine 1625 / 1625 900 / 2525 200 / 200 Output, Residual 0 / 0 Other: Urine Color [place] Yellow Yellow Urine Appearance Sediment Cloudy Clear Stool Size Moderate Moderate Large Stool Characteristics Soft Brown Soft Brown Black Brown Data Completed and Pending Labs on day of discharge: Labs from last 24 hours 04/02/24 06:09 WBC 4.66 RBC 2.92 L Hgb 8.3 L Hct 26.9 L MCV 92 MCH 28.4 MCHC 30.9 L RDW 14.3 H Plt Count 316 MPV 9.6 Sodium 143 Potassium 4.2 Chloride 107 Carbon Dioxide 26.6 Anion Gap 9.4 BUN 17 Creatinine 1.3 Est GFR (CKD-EPI 2020) 56.58 Glucose 131 H Calcium 8.9 Phosphorus 3.0 Magnesium 2.4 Preliminary micro results at discharge 03/31/24 08:25 Blood Culture - Preliminary Blood NO GROWTH 48 HOURS 03/31/24 08:20 Blood Culture - Preliminary Blood NO GROWTH 48 HOURS 03/30/24 03:53 Blood Culture - Preliminary Blood Staphylococcus Capitis 03/30/24 03:53 Blood Culture - Preliminary Blood NO GROWTH 72 HOURS PFSH All Active Problems (Updated 04/01/24 @ 13:43 by Shmuel Lyons MD) Acute kidney injury superimposed on CKD (Acute) Severe sepsis (Acute) CKD (chronic kidney disease) stage 3, GFR 30-59 ml/min (Chronic) Hyperglycemia without ketosis (Acute) UTI (urinary tract infection) due to urinary indwelling catheter (Acute) Hypoxemia (Chronic) Aspiration pneumonia (Acute) UTI (urinary tract infection) (Acute) Sepsis (Acute) Palliative care encounter (Acute) Hypoalbuminemia (Acute) Alkaline phosphatase elevation (Acute) Speech disorder (Acute) Anemia (Chronic) Communication deficit (Acute) Unable to talk for about a year due to parkinsonism Suggest using squares of paper with yes and no written in large print with sharpie. Insist that patient hand correct answer. Test with known answers before hand. Parkinsons disease (Chronic) Gastrostomy in place (Acute) Recurrent UTI (Acute) Pneumonia (Acute) Schizoaffective disorder (Acute) Palliative care patient (Acute) Sacral decubitus ulcer (Chronic) Oropharyngeal dysphagia (Acute) B12 deficiency (Acute) Folate deficiency (Acute) Dysphagia (Acute) PEG (percutaneous endoscopic gastrostomy) status (Acute) Advanced care planning/counseling discussion (Acute) Urinary retention (Chronic) Medical History Acute kidney failure Recurrent postcoital urinary tract infection Bladder stones Other schizoaffective disorders On enteral nutrition Mass of thyroid gland Indwelling Wilkerson catheter present Unable to walk in -[facility] transfer Parkinsonism due to drugs Chronic kidney disease BPH (benign prostatic hyperplasia) Atrial fibrillation Hx of hyperlipidemia HTN (hypertension) Social History Smoking/Tobacco Use Status: Never Smoking risk assessment performed?: Yes Alcohol Intake: never Substance use type: does not use Housing: assisted Additional Social history: Pateint live at the [facility] Time Spent with Patient Time Spent with Patient: <45 minutes Time was spent: preparing to see the patient(eg.review tests), obtaining and/or reviewing separately otained hiistory, ordering medications,tests, procedures, referring, communicating with other health health care administrator, indepentently interpreting results, counseling the patient and care coordination
--- NOTE | 2024-04-02 15:40 | PT.INTREAT ---
PT Notes Visit Reasons: Sepsis Date: 04/02/24 PRECAUTIONS: Fall. Standard. Dysphagia. Keep HOB at least 40 degrees at all times. SUBJECTIVE: Pt able to nod ead in agreement when inquired upon if he wanted to participate with therapy. OBJECTIVE: pt in bed, ribeiro catheter, HOB at 50 degrees? VITALS: MOnitored by nursing ? Therapeutic Activities 05318: Direct one-on-one instruction in dynamic activities to improve functional performance. ?? BED MOBILITY/TRANSFERS? Rolling L/R: max A Supine-sit: ? ?max A ? Sit-supine: ? ?max A ? Sit-stand: ? ?not performed ? Stand-sit: ?? not performed? Bed-Chair:? ? not performed? Chair-bed: not performed Provided skilled cues and instruction on performance and technique throughout. ASSESSMENT:?Pt was being DC'd this therapist able to assist with bed transfer to stretcher after static sitting balance and tolerance activity. PLAN: DC to SNF TREATMENT CODE/TIME: 33215e6 20mins (2:10-2:30pm)
--- NOTE | 2024-04-02 18:41 | PDOC.CMDIS ---
Date of service: 04/02/24 Time of Service: 18:41 LACE Index Scoring Tool Questions: Length of Stay (in days): 3 Was the patient admitted via the E.D.?: Yes Comorbidities: Liver or Renal Disease E.D. Visits: 2 Answers: Total Score: 13 Risk of Readmission: High Risk Care Management Discharge Plan Reason for Hospitalization: Sepsis Discharge Plan: Ces[facility], where [facility]. He was transported via [facility]; EMS, coordinated by CM. He will follow up with facility providers and his discharge plan of care. Patient/Family Education Needs: Review discharge instructions and limitations, discussion of self care needs including ask me three Services Needed at Discharge: [facility] ([facility]) and Transportation ([facility], EMS) SDOH Health Related Social Needs: Health related social needs details Pt currently resides at the [facility].
== END 2024-04-02 14:18 | disposition skilled nursing facility (03) | DRG 698 ==
LOC: ER 05:32 → MS 06:06
PROVIDERS: Family Medicine; General Practice; Internal Medicine; Admitting Provider Family Medicine; Emergency Provider Student in an Organized Health Care Education/Training Program; PCP Family Medicine; Visit Provider Family Medicine
DX: T83.510A Infection and inflammatory reaction due to cystostomy catheter, initial encounter (principal); A41.1 Sepsis due to other specified staphylococcus; J69.0 Pneumonitis due to inhalation of food and vomit; R65.20 Severe sepsis without septic shock; N17.9 Acute kidney failure, unspecified; N39.0 Urinary tract infection, site not specified; R47.01 Aphasia; G21.19 Other drug induced secondary parkinsonism; R09.02 Hypoxemia; R73.9 Hyperglycemia, unspecified; Z66 Do not resuscitate; L89.151 Pressure ulcer of sacral region, stage 1; N18.31 Chronic kidney disease, stage 3a; I48.0 Paroxysmal atrial fibrillation; D63.1 Anemia in chronic kidney disease; F25.9 Schizoaffective disorder, unspecified; Z93.1 Gastrostomy status; R13.12 Dysphagia, oropharyngeal phase; R33.9 Retention of urine, unspecified; I12.9 Hypertensive chronic kidney disease with stage 1 through stage 4 chronic kidney disease, or unspecified chronic kidney disease; E78.5 Hyperlipidemia, unspecified; N40.0 Benign prostatic hyperplasia without lower urinary tract symptoms; E53.8 Deficiency of other specified B group vitamins; B96.4 Proteus (mirabilis) (morganii) as the cause of diseases classified elsewhere; B95.7 Other staphylococcus as the cause of diseases classified elsewhere
CPT/HCPCS: 00123; 36410; 36415; 80048; 80053; 82805; 84145; 85027; 87040; 87077; 87637; 87641; 96365; 96366; 96368; 97163; 97530; 99285; J1650; 71045; 81003; 81015; 83036; 83605; 83735; 84100; 85025; 85610; 85730; 87086; 87186; 99223; 99232; 99233; 99238; J1815; J2470; J2543; J3370